=== PATIENT | female | born 1950 | race Caucasian/White ===

== ENCOUNTER 2020-10-15 09:40 | Inpatient (IN) | payer MEDICARE, SELFPAY ==
[2020-10-15] VITALS (29 sets, daily range): BP systolic 104–160; BP diastolic 57–108; PULSE 89–121; RESP 12–28; TEMP 36.1–37.6; O2SAT 89–100; BMI 24.3; BMI 23.6
--- NOTE | 2020-10-15 09:54 | RAD_ITS ---
STUDY: X-RAY CHEST REASON FOR EXAM: Female, 69 years old. sob TECHNIQUE: Single AP portable view of the chest. COMPARISON: 08/22/2012 FINDINGS: There is hyperinflation of the lungs consistent with chronic obstructive lung disease (COPD). Development of bibasilar airspace disease with consolidation and effusions. Otherwise diffuse patchy airspace disease throughout the lungs. Stable cardiomegaly with left chest wall pacing device. Normal mediastinum and sp. Normal visualized pulmonary arteries. Normal visualized aortic arch and descending thoracic aorta. Normal visualized thoracic spine. There is degenerative osteoarthritis of the bilateral shoulders. There is no demonstrated abnormality of the visualized soft tissue structures of the upper abdomen. RAD/Chest 1 View (Portable) IMPRESSION: Diffuse patchy airspace disease throughout the lungs with bibasilar consolidation and small effusions Electronically Signed: Noe Lopez DO at 11:02 EST Tel , Service support ,
--- NOTE | 2020-10-15 09:54 | EKG12_ITS ---
Test Reason : Blood Pressure : / mmHG Vent. Rate : 102 BPM Atrial Rate : 102 BPM P-R Int : 136 ms QRS Dur : 152 ms QT Int : 386 ms P-R-T Axes : 070 -25 102 degrees QTc Int : 503 ms Atrial-sensed ventricular-paced rhythm Biventricular pacemaker detected Abnormal ECG Confirmed by JUSTIN ALCARAZ, SHILPI ([id number]), design editor IHLL JERNIGAN ([id number]) on 10/21/2020 9:59:47 A M Referred By: ZO Confirmed By:ADOLFO ANDERSON MD
--- NOTE | 2020-10-15 10:12 | ED.RN ---
tachepnic. wheezing. pursed lip breathing. pt reports anxious. bilateral lower extremities edematous and cool to touch. brando toes purble. brando hands purple/red and cool to touch. dr evangelista at bedside. placed on nonrebreather. respiratory called for breathing tx and bipap.
--- NOTE | 2020-10-15 10:15 | ED.VIS.GEN ---
History of Present Illness Chief Complaint: Shortness of Breath Informant: Patient Onset: Days Maximum Severity: Mild Narrative: The patient presents with shortness of breath and leg edema and blue toes bilaterally that started 2 days ago with what she describes as a panic attack, she has history of a pacemaker, she has no history of CHF COPD IA PE or DVT she has no fever she has had a dry cough, no exposures to coronavirus The shortness of breath intensified on arrival her pulse ox was 85% on room air she is not known to require oxygen she was placed on oxygen her O2 sat improved to about 90% and on a nonrebreather which she holds in front of her face her O2 sat is 95% she speaks in phrases She cannot explain why her all 10 toes would be blue she has had no trauma she has no history of peripheral vascular disease or clotting disorder Past Medical History - Allergies and Home Meds Allergies/Adverse Reactions: Allergies Sulfa (Sulfonamide Antibiotics) Allergy (Verified 02/27/15 05:31) Rash amoxicillin Adverse Reaction (Verified 02/27/15 05:31) Other Past Medical History: - - Cardiac pacemaker Smoking Status: Current every day smoker Review of Systems General: Denies: Chills, Fever, Sweats Eyes: Denies: Visual changes - bilaterally, Diplopia ENT: Denies: Rhinorrhea, Sore throat Cardiovascular: Denies: Chest pain, Palpitations Respiratory: Reports: Dyspnea, Cough, Dyspnea on exertion, Paroxysmal nocturnal dyspnea Gastrointestinal: Denies: Abdominal pain, Nausea, Vomiting, Diarrhea, Melena, Hematochezia Genitourinary: Denies: Dysuria, Hematuria, Frequency Musculoskeletal: Denies: Back pain, Extremity Pain Skin: Denies: Rash, Wounds Neurological: Reports: Numbness, - - All 10 toes are blue. Denies: Headache, Weakness Physical Exam Vital Signs/Narrative: Vital Signs Temp Pulse Resp BP Pulse Ox 10/15/20 09:45 96.9 F L 121 H 27 H 146/108 H 90 10/15/20 09:41 96.9 F L 111 H 27 H 146/108 H 89 General: Well nourished, Well developed, Acute Distress Head: Normocephalic, Atraumatic Eyes: Perrl, EOMI ENT: Moist mucous membranes, No rhinorrhea Neck: Supple, Nontender Cardiovascular: Regular rate, Regular rhythm, Tachycardia Respiratory: Chest nontender, Diminished, Decreased Air Movement, Retractions, - - Has markedly diminished bilateral breath sounds she speaking in phrases a nonrebreather was applied she prefers to hold the nonrebreather in front of her face when she does so her pulse ox is 95% Abdomen: Soft, Nontender, Nondistended, Normal bowel sounds Back: Nontender, Normal Inspection Extremities: Nontender, No edema Skin: Normal color, No rash Neurological: Alert, Oriented x3, Cranial nerves II-XII grossly intact, Normal Strength, Normal Sensation Psychological: Normal affect, Normal Mood Diagnostic/Tx/Re-eval - Medical Decision Making The patient's EKG shows a paced rhythm nothing acute, given all the above she is obviously in respiratory distress she will receive ED evaluation management oxygen we will consider an attempt none invasive ventilation methods, aerosols, blood gas chest x-ray SHe is an extremely poor limited historian as she did not recall having the pacemaker and declines that she has any past medical history We did attempt to locate pulses in her feet using the ultrasound machine and none were apparent Her records obtained show the patient does have a history of CAD ejection fraction 25% COPD congestive heart failure she has no recollection of that history she has not been on Lasix or any cardiac meds that she can recall. There is a note from 2012 that describes some of this history. Her chest x-ray to my review shows signs of congestive heart failure possible right lower lobe infiltrate radiology has reviewed concern for airspace disease see that report, her CBC and chemistry are generally unremarkable see those reports, her D-dimer is pending, her BNP is about 5000 and her troponin is slightly elevated, D-dimer pending, the blood gas shows signs of respiratory failure She has agreed to be placed on the noninvasive ventilation mask her pulse ox is 100% she claims she is very anxious when the mask is put on her face she is given 1 mg of Versed she adamantly refuses endotracheal intubation under any circumstances even if it means her Given all the above we will start IV antibiotics small dose of Lasix Discussed with the hospitalist who will see her further management and admission to the ICU and a rapid Covid screen is negative, On the nonbreather noninvasive respiratory support she is resting comfortably she feels better, again she does not wish to be intubated she does not wish to have resuscitation she is interested medical management she agrees to DNR Comfort Care arrest with medical management no CPR no intubation Critical care time 25 to 40 minutes Admit ICU Final impression respiratory failure, congestive heart failure pneumonia peripheral cyanosis ED Disposition - Plan for ED Patient: Disposition: Acute Care Hospital [facility]
[2020-10-15 10:30] LABS: Absolute Lymphocyte Count 0.77 X10^3/uL (0.83-4.51); Absolute Neutrophil Count 9.5 X10^3/uL (2.0-7.7); Basophil# 0.02 X10^3/uL; Basophil% 0.2 % (0-1); Hematocrit 46.5 % (37-47); Hemoglobin 14.8 g/dL (12.0-15.0); Lymphocyte # 0.77 X10^3/ul (4.0); Lymphocyte % 7.2 % (19-41); Mean Corp Hgb Conc 31.8 g/dL (32-36); Mean Corpuscular Hgb 29.8 pg (27.0-32.0); Mean Corpuscular Volume 93.8 fL (81-99); Monocyte# 0.46 X10^3/uL; Monocyte% 4.3 % (0-10); NRBC Flagged by Analyzer 0 % (0-5); Neutrophil # 9.49 X10^3/uL (2.7-7.7); Neutrophil % 88.1 % (47-70); Platelet Count 313 K/mm3 (150-450); RBC Distribution Width CV 13.5 % (11.6-14.6); RBC Distribution Width SD 46.9 fl (35.1-43.9); Red Blood Count 4.96 M/mm3 (4.2-5.4); White Blood Count 10.8 K/mm3 (4.4-11.0)
[2020-10-15 10:35] LABS: Anion Gap 9 (5-15); BUN 18 mg/dL (7-18); BUN/Creat Ratio 25.1 RATIO (10-20); Chloride 99 mmol/L (98-107); Creatinine, Serum 0.72 mg/dL (0.55-1.02); EST Glomerular Filtration Rate 86 mL/min (>60); Est Glom Filt Rate - Afr Amer 104 mL/min (>60); Estimated Creatinine Clearance 41.99 ml/min; Glucose 171 mg/dL (74-106); Potassium 3.8 mmol/L (3.5-5.1); Sodium Level 134 mmol/L (136-145)
[2020-10-15] MEDS: Midazolam 2 MG/2 ML Syringe 1 MG IV (10:55)
[2020-10-15 11:20] LABS: D-Dimer Quantitative (DVT/PE) 0.96 FEU/ug/m (0.27-0.49)
[2020-10-15 11:50] LABS: Allen Test Positive; Base Excess -2 mmol/L (-2 to +2); Bicarbonate 25.5 mmol/L (22-26); Blood Gas Specimen Type ART; FI02 100; Mode NIV; O2 Delivery Device BiPAP; PO2 378 mmHG (75-100); SITE L Radial; SO2 100 % (95-99); Total Carbon Dioxide 27 mmol/L; pH 7.25 (7.35-7.45)
--- NOTE | 2020-10-15 11:52 | NURSING ---
DR PADRON FOR ER DOC
[2020-10-15] MEDS: Furosemide 20 MG/2 ML VIAL IV (11:56)
[2020-10-15] MEDS: Enoxaparin 80 MG/0.8 ML Syringe 70 MG SC (11:56)
--- NOTE | 2020-10-15 11:56 | HP.PCM_ITS ---
Problem List (1) Acute exacerbation of CHF (congestive heart failure) Status: Acute (2) Hypertension Status: Chronic (3) Acute respiratory failure with hypoxia and hypercapnia Status: Acute History of Present Illness Date of Admission: 10/15/20 Chief Complaint: Shortness of breath ongoing for 2 weeks The patient is a 69 year old F with history of CHF status post AICD, details not known came to ED with progressive worsening of shortness of breath for 2 weeks. At baseline, patient is not on oxygen, uses bronchodilator or NIPPV at home. Her shortness of breath got worse this morning and that brought to ER. She was put on nonrebreather and then BiPAP in ER. She has mild cough in ED but states it happened after she was put on BiPAP. She denies fever chills, chest pain/pressure/congestion. She has chronic history of sinus drainage and postnasal drip. She also has blue toes which she noticed today. It is more on the fourth and fifth toes bilaterally. She states it has happened in the past and the last one was about a year ago when she gets very anxious and get panic attack. She is also a chronic smoker and currently smokes half pack per day. Started in her 20s. In ED, triage vitals afebrile, blood pressure 146/108, respiratory 27, pulse ox 89% on 4 L of oxygen in ED. In ED, chest x-ray shows patchy consolidation throughout the lungs, predomina ntly on the right lung base with bibasilar consolidation/small effusions. Twelve-lead EKG atrial sensed ventricular paced rhythm at 102 bpm. QTC 503 ms. Previous EKG in about 2011 was similar. 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 Past Medical History Past Medical History (Chronic Problems): Chronic Problems Hypertension (Chronic) Allergies Sulfa (Sulfonamide Antibiotics) Allergy (Verified 02/27/15 05:31) Rash amoxicillin Adverse Reaction (Verified 02/27/15 05:31) Other Home Medications: Ambulatory Orders Medication Instructions Recorded Carvedilol [Coreg] 12.5 mg PO BID 02/27/15 Smoking Status: Current every day smoker - Currently smokes half pack per day. Started smoking a pack per day in her 20s. Alcohol: None Drugs: None - *Family History Paternal History Items: Heart Disease Review of Systems Constitutional: Denies: Chills, Fever, Weight Change HEENT: Denies: Head Aches, Sinus Congestion, Sinus Drainage Cardiovascular: Denies: Chest Pain, Chest Pressure, Chest Tightness, Palpitations Respiratory: Reports: Cough, Shortness of Breath, Shortness of breath at rest, Shortness of breath upon exertion. Denies: Sputum production, Wheezing Gastrointestinal: Denies: Abdominal Pain, Constipation, Diarrhea, Hematemesis, Hematochezia, Nausea, Melena, Vomiting Genitourinary: Denies: Dysuria, Frequency, Hematuria, Hesitancy Musculoskeletal: Denies: Joint Pain, Joint Tenderness Skin: Denies: Rash, Wounds Neurological: Denies: Numbness, Tingling, Focal weakness Psychiatric: Reports: Anxiety, Depression. Denies: Homicidal Ideations, Suicidal Ideations Hematologic/ Lymphatic: Denies: Easy Bruising, Easy Bleeding VTE Information - Inpt Only VTE Present on Admission: No VTE Mechan Device Prophylaxis: None VTE Pharm Prophylaxis ordered?: Yes Objective: Physical exam General: Alert, Oriented x3, Cooperative, in respiratory distress HEENT: Atraumatic, PERRLA, EOMI, Normocephalic Oral: On BiPAP. Neck: Supple, No JVD, Negative Carotid Bruits Lungs: Air entry diminished in bilateral lung bases. Bilateral coarse crepitation present. Cardiovascular: Left subclavicular AICD present. Regular rate, Regular Rhythm, Normal S1, Normal S2, systolic murmur over left second and left lower sternal border. Abdomen: Bowel Sounds Present, Soft, Non Tender, Non-Distended : No renal angle tenderness. No suprapubic tenderness. Extremities: Mild bilateral ankle edema, toes of both feet are bluish. Pale, cold. Bilateral SANDER OPERATOR, popliteal and femoral palpable although PTR febrile. Skin: No rashes, No breakdown Musculoskeletal: No Tenderness to Palpation of Joints or Extremities Neurological: Cranial nerves II-XII grossly intact, Deep Tendon Reflexes 2+/4 and Symmetrical, Neuro grossly intact Psych/Mental Status: Anxious. Appropriate.. - Physical Exam Vitals/I&O's: Vital Signs Temp Pulse Resp BP Pulse Ox 97.6 F L 110 H 26 H 128/92 H 100 10/15/20 11:00 10/15/20 11:00 10/15/20 11:00 10/15/20 11:10/15/20 11:00 Oxygen Flow Rate (L/min) 15 Oxygen Delivery Method Bi-pap Weight: 132 lb 11.492 oz Body Mass Index (BMI) 24.3 Microbiology Past 72 Hours 10/15/20 10:00 Mucosa - Nose SARS-CoV-2 Antigen (Rapid) - Final Laboratory Results 10/15/20 10:00: WBC 10.8, RBC 4.96, Hgb 14.8, Hct 46.5, MCV 93.8, MCH 29.8, MCHC 31.8 L, RDW Std Deviation 46.9 H, RDW Coeff of Toby 13.5, Plt Count 313, MPV 11.0, Immature Gran % (Auto) 0.200, Neut % (Auto) 88.1 H, Lymph % (Auto) 7.2 L, [place] % (Auto) 4.3, Eos % (Auto) 0.0, Baso % (Auto) 0.2, Absolute Neuts (auto) 9.5 H, Absolute Lymphs (auto) 0.77 L, Nucleated RBC % 0 10/15/20 10:00: Sodium 134 L, Potassium 3.8, Chloride 99, Carbon Dioxide 26.0, Anion Gap 9, BUN 18, Creatinine 0.72, Estim Creat Clear Calc 41.99, Est GFR (MDRD) Af Amer 104, Est GFR (MDRD) Non-Af 86, BUN/Creatinine Ratio 25.1 H, Glucose 171 H, Calcium 9.0, Troponin I 0.294 H 10/15/20 10:00: B-Natriuretic Peptide 4573.0 H 10/15/20 10:00: D-Dimer Quant (PE/DVT) 0.96 H* 10/15/20 11:42: Specimen Type ART, Sample Site L Radial, pH 7.25 L, Bicarbonate Actual 25.5, Total CO2 27, Base Excess -2, O2 Saturation 100 H, O2 % 100, ABG pCO2 58.0 H, ABG pO2 378 H*, Carroll Test Positive, O2 Delivery Device BiPAP, Vent Mode NIV Current Medications Levofloxacin (Levaquin Iv) 750 mg in 150 mls @ 100 mls/hr IV X1 ONE Stop: 10/15/20 12:40 Assessment/Plan All Active Problems Acute exacerbation of CHF (congestive heart failure) (Acute) Acute respiratory failure with hypoxia and hypercapnia (Acute) The patient is a 69 year old F with history of CHF status post AICD, details not known came to ED with progressive worsening of shortness of breath for 2 weeks. Patient put on BiPAP in ED In ED, chest x-ray shows patchy consolidation throughout the lungs, predominantly on the right lung base with bibasilar consolidation/small effusions. Twelve-lead EKG atrial sensed ventricular paced rhythm at 102 bpm. QTC 503 ms. Previous EKG in about 2011 was similar. 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 1. Acute hypoxic and hypercarbic respiratory failure on BiPAP most probably secondary to CHF extubation: Patient is being admitted in ICU. ABG 7.25/58/378/26 on 100% FiO2 BiPAP. Discussed with the ase master mechanic. Lasix 40 mg IV twice daily with CHF core measures strict input and output, daily weight monitoring and 2 g sodium diet. 2D echo is ordered. We will try to get record from lace machine operator, [facility]. 2. Suspicion of peripheral arterial disease/critical limb ischemia: Dip Unit Operator consulted. Arterial Doppler and vascular check ordered. On Lovenox 1 mg/kg body weight every 12 hourly. Aspirin 81 mg daily. Further as per lace machine operator recommendation. 3. Acute on chronic CHF, exact type and etiology unclear but probably nonischemic: Patient on Coreg 12.5 twice daily at home but will hold it as she is hypervolemic now. Resume later when fluid status is euvolemic. First troponin mildly elevated 0.294. Cycle troponin yes. 4. Suspicion of COVID-19 pneumonia: Rapid antigen is negative. COVID-19 PCR, respiratory panel and sputum culture ordered. Lactic acid and inflammatory markers is ordered. ID consult for further opinion. Hold on remdesivir until COVID-19 PCR comes positive. VT prophylaxis on Lovenox 60 mg every 12 hourly, full therapeutic dose. Living will/advanced directive/end of life care: Patient does not have living will or advanced directive. After discussion of benefits/risks procedures involved with full code, DNR CC arrest and DNR CC, the patient opted for DNR-CC Arrest with no intubation Patient does not want artificial life support including intubation, tube feed, ventilator and/chest compression, vasopressor and DC shock if needed Total time spent in [id number] encounter in discussion of advanced directive 16 minutes. Clinical Impression(s) from Imaging Studies Chest X-Ray 10/15/20 09:54 IMPRESSION: Diffuse patchy airspace disease throughout the lungs with bibasilar consolidation and small effusions Inpatient E&M: 57810 Init Hosp L3 Procedures: 05132 Advncd Care Plan 30 Min
[2020-10-15] MEDS: levoFLOXacin IV 750 MG/150 ML BAG 100 MG IV (12:00)
--- NOTE | 2020-10-15 12:01 | CPS ---
Critical values verified times two. Reported to . Verified by read back.
--- NOTE | 2020-10-15 12:20 | NURSING ---
ICU [facility] FALURE, CHF, DNR ARREST
--- NOTE | 2020-10-15 12:21 | NURSING ---
ICU 3
--- NOTE | 2020-10-15 12:29 | NURSING ---
DR PADRON IN ER
--- NOTE | 2020-10-15 13:05 | CPS ---
Transported pt to ICU on 6lpm via NC w/RN. pt doing well, left on 4lplm after arriving in ICU. Sat=97%. Left AVAPS on standby.
--- NOTE | 2020-10-15 14:03 | CON.PCM_ITS ---
Problem List (1) Acute exacerbation of CHF (congestive heart failure) Status: Ruled-out (2) Hypertension Status: Chronic (3) Acute respiratory failure with hypoxia and hypercapnia Status: Acute Reason for Consult Date of Consultation: 10/15/20 History of Present Illness: The patient is a 69 year old female with past medical history of AICD, hypertension presented inpatient due to worsening shortness of breath. The patient reports this been going on for the past few days. She noticed that her lower extremity has been swelling as well. Due to the worsening shortness of breath, the patient presented inpatient for further evaluation. Present chest x-ray showed diffuse patchy airspace disease throughout the lungs with bibasilar consolidations and small effusions. Patient was in sinus tachycardia with no evidence of acute ischemia. He was initially placed on BiPAP therapy and it seems to help with her breathing. Patient has not had any recent trauma to her legs. The ER, the patient was found to have purplish looking lower extremities. This is concerning for ischemia. The patient reports asked to keep her house cool. She often keeps in the 60 degree Fahrenheit. The patient denies any chest pain, chest pressure, chest tightness, chest heaviness, burning sensation in the chest, recent trauma, fever, exposure to COVID-19. Past Medical History Allergies/Adverse Reactions: Allergies Sulfa (Sulfonamide Antibiotics) Allergy (Verified 02/27/15 05:31) Rash amoxicillin Adverse Reaction (Verified 02/27/15 05:31) Other Home Medications: Ambulatory Orders Medication Instructions Recorded Carvedilol [Coreg] 12.5 mg PO BID 02/27/15 Past Medical History (Chronic Problems): Chronic Problems Hypertension (Chronic) - *Family History Paternal History Items: Heart Disease Smoking Status: Current every day smoker - Currently smokes half pack per day. Started smoking a pack per day in her 20s. Alcohol: None Drugs: None Subjectve: Review of him the 14 point review of system was done. Pertinent positive are mentioned in HPI. Physical Exam GENERAL: This is a well-nourished who is appropriate and articulate at the time of evaluation. VITAL SIGNS: please see collected data HEENT: Exam is benign. Normocephalic and atraumatic. Oral mucosa is pink and moist. NECK: Jugular venous pulsations are normal. Carotid upstrokes are palpable bilaterally. There is no audible bruit. LUNGS: Decreased breath sound to Auscultation Bilaterally, No rales, rhonchi or wheezes CARDIAC: Tachycardic . S1 and S2 with NILESH at apex, no rub, or gallop appreciated. The point of maximal impulse is normal. ABDOMEN: Obese, soft with active bowel sounds. No organomegaly. No audible bruit. Nontender To Palpation EXTREMITIES: Femoral pulses were palpable bilaterally. There is DP and PT pulse bilaterally. The patient may have Raynaud's phenomenon. OMM: Patient was examined in supine position; there was no acute tissue changes other stated in Lymphs: No lymphadenopathy Neuro: CN 2-12 are grossly intact, no focal neurological deficit. Psych: anxiety Objective: Vital Signs Temp Pulse Resp BP Pulse Ox 97.1 F L 101 H 24 H 105/64 97 10/15/20 13:50 10/15/20 13:50 10/15/20 13:50 10/15/20 13:50 10/15/20 13:50 Oxygen Flow Rate (L/min) 6 Oxygen Delivery Method Nasal Cannula Weight: 132 lb 11.492 oz Body Mass Index (BMI) 24.3 Intake and Output for Last 24 Hours 10/13/20 10/14/20 10/15/20 23:59 23:59 23:59 Intake Total 150 / 150 Balance 150 / 150 10/15/20 10:00: WBC 10.8, RBC 4.96, Hgb 14.8, Hct 46.5, MCV 93.8, MCH 29.8, MCHC 31.8 L, Plt Count 313, MPV 11.0, Immature Gran % (Auto) 0.200, Neut % (Auto) 88.1 H, Lymph % (Auto) 7.2 L, [place] % (Auto) 4.3, Eos % (Auto) 0.0, Baso % (Auto) 0.2, Absolute Neuts (auto) 9.5 H, Nucleated RBC % 0 10/15/20 10:00: Sodium 134 L, Potassium 3.8, Chloride 99, Carbon Dioxide 26.0, Anion Gap 9, BUN 18, Creatinine 0.72, Est GFR (MDRD) Af Amer 104, Est GFR (MDRD) Non-Af 86, BUN/Creatinine Ratio 25.1 H, Glucose 171 H, Calcium 9.0, Troponin I 0.294 H 10/15/20 10:00: B-Natriuretic Peptide 4573.0 H 10/15/20 10:00: D-Dimer Quant (PE/DVT) 0.96 H* 10/15/20 11:42: pH 7.25 L, Bicarbonate Actual 25.5, Base Excess -2, O2 Saturation 100 H, ABG pCO2 58.0 H, ABG pO2 378 H*, Carroll Test Positive Rhythm: EKG: ECHO: Stress Test: Cardiac Cath: PCI: CT Surgery: Holter monitor: EPS: PPM: CXR: Chest CT Scan: Assessment/Plan Impression and recommendation + NSTEMI type II ECG showed sinus tachycardia with no evidence of acute ischemia. There is pulmonary pattern concerning for pulmonary disease. Patient has an elevated troponin level along with the tachycardia and initially hypotensive and hypoxic. The D-dimer is elevated. We recommend rule out PE. Will order for CT angio of the chest to rule out PE. Additionally, the patient chest x-ray is concerning for COVID-19 pneumonia. We will continue to monitor closely We will order an echo to evaluate for evidence structure. We recommend continue with the Lovenox full dose. We will going to implement cardiac medical therapy as tolerated. We will start the patient on Lasix 40 mg twice daily. We recommend accurate I/O's. -We will also obtain record for more building equipment inspector when possible. + Acute exacerbation of heart failure with reduced LVEF -See management above + Lower extremity discoloration -The patient reports she does not usually noticed that her feet are purplish. However, she admits that she does only watch it. The patient reports since the admission, her feet some much better in coloration. We suspect that this may be due to renal phenomenon. The patient distal pulses are normal. Hence this is highly unlikely that she has an acute limb ischemia. There is no pain, pallor, petechiae, neurovascular bundle being compromised. Her sensations are intact. We will continue to monitor closely. + Acute respiratory failure -Management above. Primary team is also following. Patient was started on antibiotics. + History of AICD -Patient reports the last time Auth0 check her AICD which was about 6 months ago. She was told her it was normal. + Hypertension -Monitor for now
--- NOTE | 2020-10-15 14:28 | CT_ITS ---
STUDY: CTA CHEST REASON FOR EXAM: Female, 69 years old. RESPIRATORY FAILURE, CHF RADIATION DOSAGE (If Supplied By Facility): CTDIvol = ( 8.78 ) mGy, DLP = ( 345.69 ) mGycm TECHNIQUE: The examination was performed with the intravenous administration of IV 100mL Isovue-300. Post-processing of the angiographic images was performed, with multiplanar reformation and 3D reconstruction. Individualized dose optimization techniques were used for this CT. COMPARISON: None. FINDINGS: Pulmonary artery and its branches demonstrate no evidence for filling defects to suggest acute pulmonary embolism. Cardiac size appears enlarged. No pericardial effusion. Coronary vascular calcifications. Calcifications of the thoracic aorta. No evidence for dissection or aneurysm. Small hiatal hernia. Dense consolidation in the right lower lobe seen. Bilateral interlobular septal thickening and groundglass densities likely pulmonary edema. Patchy infiltrates in the left lower lobe also seen. Upper abdominal structures demonstrate no acute abnormalities. The trachea and the mainstem bronchi are patent. Enlargement of the thyroid gland. Trace bilateral pleural effusions. Osseous structures demonstrate no acute abnormalities. IMPRESSION: Cardiomegaly with bilateral mild pulmonary edema. Dense consolidation in the right lower lobe and patchy infiltrates in the left lower lobe. No evidence for acute pulmonary embolism. No evidence for aortic dissection. Coronary vascular calcifications Electronically Signed: Eliezer King, at 16:02 EST Tel , Service support , CT/CTA Chest W/WO Contrast
--- NOTE | 2020-10-15 14:31 | ECHOD_ITS ---
Reason For Study: CHF Procedure This was a 2D Doppler, Color Flow transthoracic echocardiogram. Exam performed portable in ICU/CCU. Left Ventricle -The LV is dilated. The LV EF is 15%. -There is no gross LV thrombus. -There is severe generalized wall motion hypokinesis. -There is severe diastolic dysfunction. Right Ventricle Normal right ventricle. Atria The left atrium is moderately enlarged. Normal right atrium. Mitral Valve -There is at least moderate to severe mitral regurgitation. The jet appears to be directed centrally. Tricuspid Valve mild TR. Aortic Valve Normal aortic valve. Pulmonic Valve The pulmonic valve is not well visualized. Great Vessels The inferior vena cava is dilated. Pericardium/Pleural There is physiologic pericardial effusion. There is no evidence of cardiac echo tamponade. MMode/2D Measurements & Calculations LVIDd: 5.6 cm IVSd: 1.0 cm Ao root diam: 3.5 cm LVIDs: 5.0 cm LVPWd: 1.1 cm RVDd: 3.1 cm FS: 10.8 % LAV(MOD-bp): 70.4 ml LVAd ap4: 54.3 cm2 SV(MOD-sp4): 53.1 ml LAV(MOD-bp) Indexed: 43.9 ml/m2 EDV(MOD-sp4): 241.9 ml LAV(MOD-sp2): 97.1 ml EDV(sp4-el): 253.7 ml LAV(MOD-sp4): 49.8 ml LVAs ap4: 47.5 cm2 ESV(MOD-sp4): 188.7 ml ESV(sp4-el): 195.4 ml EF(MOD-sp4): 22.0 % EF(sp4-el): 23.0 % SV(sp4-el): 58.3 ml LA A4 area: 18.4 cm2 LA dimension(2D): 4.3 cm RA A4 area: 11.1 cm2 Doppler Measurements & Calculations MV E max alberto: 84.8 cm/sec Lat Peak E' Alberto: 12.7 cm/sec Med Peak E' Alberto: 12.2 cm/sec MV A max alberto: 114.3 cm/sec E/E' lat: 6.7 E/E' med: 6.9 MV E/A: 0.74 Ao V2 max: 153.9 cm/sec LV V1 max: 120.6 cm/sec PA V2 max: 89.1 cm/sec Ao max P.5 mmHg LV V1 max P.8 mmHg TR max alberto: 311.1 cm/sec TR max P.8 mmHg Interpretation Summary +Transthoracic Echo Summary: -The LV is dilated. The LV EF is 15%. -There is no gross LV thrombus. -There is severe generalized wall motion hypokinesis. -There is severe diastolic dysfunction. -There is at least moderate to severe mitral regurgitation. The jet appears to be directed centrally -There is moderate Pulmonary Hypertension with estimated RVSP of 55mmHg. -The IVC is dilated and plethoric. -There is no gross PFO or ASD. There is moderate sized left sided pleural effusion. There is pacing lead in the RV There is physiologic pericardial effusion. There is no evidence of cardiac echo tamponade. Frantz Shah, FSCAI, FACC, FASE, FASNC Ordering Physician: Frantz Shah Referring Physician: No PCP Performed By: Kayla Tuttle, LETY
[2020-10-15 15:24] LABS: Magnesium 1.9 mg/dL (1.6-2.6)
--- NOTE | 2020-10-15 15:29 | NURSING ---
Pt c/o severe anxiety with anything that involves wearing a mask and adamantly refuses to wear one, therefore pt not made to wear a mask to CT. Pt without any cough at this time, remains on oxygen at 3L/min with oxygen sats in upper 90s.
[2020-10-15 15:36] LABS: CRP < 2.90 mg/L (0.0-3.0); LDH 377 U/L (84-246); Lactic Acid 1.7 mmol/L (0.4-1.9)
[2020-10-15 16:06] LABS: Fibrinogen 295 mg/dl (203-444)
[2020-10-16] VITALS (20 sets, daily range): BP systolic 94–132; BP diastolic 47–91; PULSE 86–99; RESP 13–23; TEMP 36.8–37.6; O2SAT 91–99
[2020-10-16 02:07] LABS: Procalcitonin < 0.04 ng/mL (0.00-0.09)
[2020-10-16 05:06] LABS: Absolute Neutrophil Count 7.7 X10^3/uL (2.0-7.7); Basophil# 0.02 X10^3/uL; Basophil% 0.2 % (0-1); Eosinophil# 0.02 X10^3/uL; Eosinophils% 0.2 % (0-5); Hematocrit 37.3 % (37-47); Hemoglobin 12.4 g/dL (12.0-15.0); Lymphocyte % 12.1 % (19-41); Mean Corp Hgb Conc 33.2 g/dL (32-36); Mean Corpuscular Hgb 30.2 pg (27.0-32.0); Mean Corpuscular Volume 90.8 fL (81-99); Mean Platelet Vol. 10.8 fl (6.2-12.0); Monocyte# 0.93 X10^3/uL; Monocyte% 9.4 % (0-10); NRBC Flagged by Analyzer 0 % (0-5); Neutrophil # 7.73 X10^3/uL (2.7-7.7); Neutrophil % 77.8 % (47-70); Platelet Count 270 K/mm3 (150-450); RBC Distribution Width CV 13.3 % (11.6-14.6); RBC Distribution Width SD 44.6 fl (35.1-43.9); Red Blood Count 4.11 M/mm3 (4.2-5.4); White Blood Count 9.9 K/mm3 (4.4-11.0)
--- NOTE | 2020-10-16 05:38 | PCM.CON.CC ---
Reason for Consult Date of Consultation: 10/16/20 Reason for Consultation: Acute hypoxemic respiratory failure History of Present Illness: The patient is a 69-year-old female, with a history as outlined below, who presented to the emergency department on October 15 with complaints of shortness of breath and lower extremity edema. The patient does reportedly have a cardiac history and follows with a kineseologist in [place]. She also reported the presence of frequent panic attacks over the days leading up to her hospitalization. She is a current smoker of 0.5 packs of cigarettes per day, but does not utilize any inhalers or supplemental oxygen at her baseline. On presentation to the emergency department, the patient was noted to be tachycardic and tachypneic. She was hypoxemic requiring supplemental oxygen to maintain appropriate saturations. Laboratory evaluation revealed no evidence of a leukocytosis. D-dimer was only mildly elevated to 0.96. Arterial blood gas revealed a pH of 7.25 with a PCO2 of 58 and PO2 of 378. Chemistry profile was unremarkable. Lactate was within normal limits. Troponin was elevated to 0.294. BNP [place] elevated [place] 4573. Procalcitonin level was normal. Coronavirus rapid antigen and PCR testing was negative. CTA chest was eventually obtained which revealed cardiomegaly, pulmonary edema and a dense consolidation in the right lower lobe. No pulmonary embolism was identified. Due to the patient's tenuous respiratory status, she was placed on BiPAP therapy with subsequent improvement. The patient was then transferred to the medical intensive care unit for further management. Past Medical History Past Medical History (Chronic Problems): Chronic Problems Hypertension (Chronic) Allergies Sulfa (Sulfonamide Antibiotics) Allergy (Verified 02/27/15 05:31) Rash amoxicillin Adverse Reaction (Verified 02/27/15 05:31) Other Home Medications: Ambulatory Orders Medication Instructions Recorded Carvedilol [Coreg] 12.5 mg PO BID 02/27/15 Smoking Status: Current every day smoker Alcohol: None Drugs: None - *Family History Paternal History Items: Heart Disease Review of Systems Constitutional: Denies: Chills, Fever Eyes: Denies: Blurred vision, Double vision HEENT: Denies: Head Aches, Sinus Congestion, Sinus Drainage Cardiovascular: Reports: Edema. Denies: Chest Pain, Palpitations Respiratory: Reports: Cough, Shortness of Breath Gastrointestinal: Denies: Abdominal Pain, Nausea, Vomiting Genitourinary: Denies: Dysuria Musculoskeletal: Denies: Joint Pain, Joint Tenderness Skin: Denies: Rash, Wounds Neurological: Denies: Numbness, Tingling, Focal weakness Psychiatric: Reports: Anxiety Hematologic/ Lymphatic: Denies: Hx of blood clot Patient Problems: Active and Suspected Problems Acute respiratory failure with hypoxia and hypercapnia (Acute) Objective: The patient's most recent lab work, culture data and imaging studies have all been personally reviewed. - Physical Exam Vitals/I&O's: Vital Signs Temp Pulse Resp BP Pulse Ox 98.9 F 97 20 H 112/60 95 10/16/20 04:00 10/16/20 04:00 10/16/20 04:00 10/16/20 04:00 10/16/20 04:00 Oxygen Flow Rate (L/min) 2 Oxygen Delivery Method Nasal Cannula Weight: 126 lb 12.253 oz Body Mass Index (BMI) 23.6 Intake and Output for Last 24 Hours 10/14/20 10/15/20 10/16/20 23:59 23:59 23:59 Intake Total 390 / 390 240 / 240 Output Total 2500 / 2500 450 / 450 Balance -2110 / -2110 -210 / -210 General: Alert, Oriented x3, Cooperative, No apparent distress HEENT: Atraumatic, PERRLA, Normocephalic Oral: Moist Mucosa, No Gingival or Mucosal Lesions/ Ulcerations Neck: Supple, No Nodes, Trachea Midline Lungs: No rhonchi, No wheeze, No rales, Diminished Cardiovascular: Regular rate, Regular Rhythm Abdomen: Bowel Sounds Present, Soft, Non Tender Extremities: No clubbing, No cyanosis, Edema Skin: No breakdown Musculoskeletal: No Muscle Wasting Lymphatic: No Cervical, Supraclavicular, or Inguinal Adenopathy Neurological: Cranial nerves II-XII grossly intact, Neuro grossly intact Psych/Mental Status: Anxious Labs (Last 48 Hours) 10/15/20 10/15/20 10/15/20 10:00 10:00 10:00 WBC 10.8 RBC 4.96 Hgb 14.8 Hct 46.5 MCV 93.8 MCH 29.8 MCHC 31.8 L RDW Std Deviation 46.9 H RDW Coeff of Toby 13.5 Plt Count 313 MPV 11.0 Immature Gran % (Auto) 0.200 Neut % (Auto) 88.1 H Lymph % (Auto) 7.2 L [place] % (Auto) 4.3 Eos % (Auto) 0.0 Baso % (Auto) 0.2 Absolute Neuts (auto) 9.5 H Absolute Lymphs (auto) 0.77 L Nucleated RBC % 0 Fibrinogen D-Dimer Quant (PE/DVT) Specimen Type Sample Site pH Bicarbonate Actual Total CO2 Base Excess O2 Saturation O2 % ABG pCO2 ABG pO2 Carroll Test O2 Delivery Device Vent Mode Sodium 134 L Potassium 3.8 Chloride 99 Carbon Dioxide 26.0 Anion Gap 9 BUN 18 Creatinine 0.72 Estim Creat Clear Calc 41.99 Est GFR (MDRD) Af Amer 104 Est GFR (MDRD) Non-Af 86 BUN/Creatinine Ratio 25.1 H Glucose 171 H Lactic Acid Calcium 9.0 Magnesium Total Bilirubin Direct Bilirubin AST ALT Alkaline Phosphatase Lactate Dehydrogenase Troponin I 0.294 H C-React Prot Ext Range B-Natriuretic Peptide 4573.0 H Total Protein Albumin Globulin Albumin/Globulin Ratio Triglycerides Cholesterol LDL Cholesterol VLDL Cholesterol HDL Cholesterol Procalcitonin TSH COVID-19 ([facility]) 10/15/20 10/15/20 10/15/20 10:00 10:00 11:42 WBC RBC Hgb Hct MCV MCH MCHC RDW Std Deviation RDW Coeff of Toby Plt Count MPV Immature Gran % (Auto) Neut % (Auto) Lymph % (Auto) [place] % (Auto) Eos % (Auto) Baso % (Auto) Absolute Neuts (auto) Absolute Lymphs (auto) Nucleated RBC % Fibrinogen D-Dimer Quant (PE/DVT) 0.96 H* Specimen Type ART Sample Site L Radial pH 7.25 L Bicarbonate Actual 25.5 Total CO2 27 Base Excess -2 O2 Saturation 100 H O2 % 100 ABG pCO2 58.0 H ABG pO2 378 H* Carroll Test Positive O2 Delivery Device BiPAP Vent Mode NIV Sodium Potassium Chloride Carbon Dioxide Anion Gap BUN Creatinine Estim Creat Clear Calc Est GFR (MDRD) Af Amer Est GFR (MDRD) Non-Af BUN/Creatinine Ratio Glucose Lactic Acid Calcium Magnesium Total Bilirubin Direct Bilirubin AST ALT Alkaline Phosphatase Lactate Dehydrogenase Troponin I C-React Prot Ext Range B-Natriuretic Peptide Total Protein Albumin Globulin Albumin/Globulin Ratio Triglycerides Cholesterol LDL Cholesterol VLDL Cholesterol HDL Cholesterol Procalcitonin < 0.04 TSH COVID-19 ([facility]) 10/15/20 10/15/20 10/15/20 13:37 14:50 14:50 WBC RBC Hgb Hct MCV MCH MCHC RDW Std Deviation RDW Coeff of Toby Plt Count MPV Immature Gran % (Auto) Neut % (Auto) Lymph % (Auto) [place] % (Auto) Eos % (Auto) Baso % (Auto) Absolute Neuts (auto) Absolute Lymphs (auto) Nucleated RBC % Fibrinogen Cancelled D-Dimer Quant (PE/DVT) Specimen Type Sample Site pH Bicarbonate Actual Total CO2 Base Excess O2 Saturation O2 % ABG pCO2 ABG pO2 Carroll Test O2 Delivery Device Vent Mode Sodium Potassium Chloride Carbon Dioxide Anion Gap BUN Creatinine Estim Creat Clear Calc Est GFR (MDRD) Af Amer Est GFR (MDRD) Non-Af BUN/Creatinine Ratio Glucose Lactic Acid Calcium Magnesium Total Bilirubin Direct Bilirubin AST ALT Alkaline Phosphatase Lactate Dehydrogenase 377 H Troponin I C-React Prot Ext Range < 2.90 B-Natriuretic Peptide Total Protein Albumin Globulin Albumin/Globulin Ratio Triglycerides Cholesterol LDL Cholesterol VLDL Cholesterol HDL Cholesterol Procalcitonin TSH COVID-19 ([facility]) Negative 10/15/20 10/15/20 10/15/20 14:50 14:50 14:50 WBC RBC Hgb Hct MCV MCH MCHC RDW Std Deviation RDW Coeff of Toby Plt Count MPV Immature Gran % (Auto) Neut % (Auto) Lymph % (Auto) [place] % (Auto) Eos % (Auto) Baso % (Auto) Absolute Neuts (auto) Absolute Lymphs (auto) Nucleated RBC % Fibrinogen D-Dimer Quant (PE/DVT) Specimen Type Sample Site pH Bicarbonate Actual Total CO2 Base Excess O2 Saturation O2 % ABG pCO2 ABG pO2 Carroll Test O2 Delivery Device Vent Mode Sodium Potassium Chloride Carbon Dioxide Anion Gap BUN Creatinine Estim Creat Clear Calc Est GFR (MDRD) Af Amer Est GFR (MDRD) Non-Af BUN/Creatinine Ratio Glucose Lactic Acid 1.7 Calcium Magnesium 1.9 Total Bilirubin Direct Bilirubin AST ALT Alkaline Phosphatase Lactate Dehydrogenase Troponin I 0.593 H C-React Prot Ext Range B-Natriuretic Peptide Total Protein Albumin Globulin Albumin/Globulin Ratio Triglycerides Cholesterol LDL Cholesterol VLDL Cholesterol HDL Cholesterol Procalcitonin TSH COVID-19 ([facility]) 10/15/20 10/15/20 10/16/20 15:40 17:40 04:45 WBC RBC Hgb Hct MCV MCH MCHC RDW Std Deviation RDW Coeff of Toby Plt Count MPV Immature Gran % (Auto) Neut % (Auto) Lymph % (Auto) [place] % (Auto) Eos % (Auto) Baso % (Auto) Absolute Neuts (auto) Absolute Lymphs (auto) Nucleated RBC % Fibrinogen 295 D-Dimer Quant (PE/DVT) Specimen Type Sample Site pH Bicarbonate Actual Total CO2 Base Excess O2 Saturation O2 % ABG pCO2 ABG pO2 Carroll Test O2 Delivery Device Vent Mode Sodium 138 Potassium 3.6 Chloride 104 Carbon Dioxide 30.0 Anion Gap 4 L BUN 15 Creatinine 0.71 Estim Creat Clear Calc 41.99 Est GFR (MDRD) Af Amer 105 Est GFR (MDRD) Non-Af 87 BUN/Creatinine Ratio 21.2 H Glucose 116 H Lactic Acid Calcium 8.2 L Magnesium Total Bilirubin 0.60 Direct Bilirubin 0.19 AST 46 H ALT 69 H Alkaline Phosphatase 122 H Lactate Dehydrogenase Troponin I 0.902 H* 0.845 H* C-React Prot Ext Range B-Natriuretic Peptide Total Protein 5.6 L Albumin 2.9 L Globulin 2.7 Albumin/Globulin Ratio 1.1 Triglycerides 76 Cholesterol 138 LDL Cholesterol 73 VLDL Cholesterol 15 HDL Cholesterol 50 Procalcitonin TSH 0.45 COVID-19 ([facility]) 10/16/20 04:45 WBC 9.9 RBC 4.11 L Hgb 12.4 Hct 37.3 MCV 90.8 MCH 30.2 MCHC 33.2 RDW Std Deviation 44.6 H RDW Coeff of Toby 13.3 Plt Count 270 MPV 10.8 Immature Gran % (Auto) 0.300 Neut % (Auto) 77.8 H Lymph % (Auto) 12.1 L [place] % (Auto) 9.4 Eos % (Auto) 0.2 Baso % (Auto) 0.2 Absolute Neuts (auto) 7.7 Absolute Lymphs (auto) 1.20 Nucleated RBC % 0 Fibrinogen D-Dimer Quant (PE/DVT) Specimen Type Sample Site pH Bicarbonate Actual Total CO2 Base Excess O2 Saturation O2 % ABG pCO2 ABG pO2 Carroll Test O2 Delivery Device Vent Mode Sodium Potassium Chloride Carbon Dioxide Anion Gap BUN Creatinine Estim Creat Clear Calc Est GFR (MDRD) Af Amer Est GFR (MDRD) Non-Af BUN/Creatinine Ratio Glucose Lactic Acid Calcium Magnesium Total Bilirubin Direct Bilirubin AST ALT Alkaline Phosphatase Lactate Dehydrogenase Troponin I C-React Prot Ext Range B-Natriuretic Peptide Total Protein Albumin Globulin Albumin/Globulin Ratio Triglycerides Cholesterol LDL Cholesterol VLDL Cholesterol HDL Cholesterol Procalcitonin TSH COVID-19 ([facility]) Microbiology 10/15/20 13:39 Mucosa - Nasopharyngeal Respiratory Panel (PCR) - Final 10/15/20 14:55 Urine Catheter - Barraza Legionella Antigen - Final 10/15/20 14:55 Urine Catheter - Barraza Streptococcus pneumoniae Antigen (M - Final 10/15/20 10:00 Mucosa - Nose SARS-CoV-2 Antigen (Rapid) - Final Clinical Impression(s) from Imaging Studies Chest X-Ray 10/15/20 09:54 IMPRESSION: Diffuse patchy airspace disease throughout the lungs with bibasilar consolidation and small effusions Electronically Signed: Noe Lopez DO at 11:02 EST Tel , Service support , Chest CTA 10/15/20 14:28 Current Medications Acetaminophen (Acetaminophen 325 Mg Tablet) 650 mg PO Q6H PRN PRN PRN Reason: Pain Score 1-10/Temp > 100.7 F Albuterol Sulfate (Albuterol 2.5 Mg/3 Ml Vial.Neb.) 2.5 mg INHALATION Q2H PRN PRN PRN Reason: SOB/Wheezing Aspirin (Aspirin E.C. 81 Mg Tablet) 81 mg PO DAILY COUNTS INCLUDE 234 BEDS AT THE [facility] Dexamethasone Sodium Phosphate (Dexamethasone 10 Mg/Ml Vial) 6 mg IV DAILY COUNTS INCLUDE 234 BEDS AT THE [facility] Last Admin: 10/15/20 16:08 Dose: Not Given Documented by: Enoxaparin Sodium (Enoxaparin 60 Mg/0.6 Ml Syringe) 60 mg SC Q12@1000,1800 COUNTS INCLUDE 234 BEDS AT THE [facility] Last Admin: 10/15/20 17:52 Dose: Not Given Documented by: Furosemide (Furosemide 40 Mg/4 Ml Vial) 40 mg IV BID@0800,1400 COUNTS INCLUDE 234 BEDS AT THE [facility] Melatonin (Melatonin 3 Mg Tablet) 3 mg PO QHS PRN PRN PRN Reason: INSOMNIA Morphine Sulfate (Morphine 2 Mg/Ml Syringe) 2 mg IV Q3H PRN PRN PRN Reason: Pain Score 6-10 Nitroglycerin (Nitroglycerin (Inpatient Use) 0.4 Mg Tab.Subl) 0.4 mg SUBLINGUAL Q5M PRN PRN Reason: CARDIAC/CHEST PAIN Oxycodone HCl (Oxycodone 5 Mg Tablet) 5 mg PO Q4H PRN PRN PRN Reason: Pain Score 4-5 Prochlorperazine Edisylate (Prochlorperazine 10 Mg/2 Ml Vial) 5 mg IV Q4H PRN PRN PRN Reason: Breakthrough Nausea/Vomiting Senna/Docusate Sodium (Senna/Docusate Sodium 1 Tablet) 2 tablet PO BID PRN PRN PRN Reason: Constipation Sodium Chloride (0.9% Saline Lock 10 Ml Syringe) 10 - 40 ml IV UD PRN PRN Reason: SALINE FLUSH Assessment/Plan Active and Suspected Problems Acute respiratory failure with hypoxia and hypercapnia (Acute) RECOMMENDATIONS: 1. Discontinue Decadron on therapeutic Lovenox. 2. Continue diuretic therapy as tolerated by hemodynamics and renal function. 3. Encourage incentive spirometer use and mobilize patient as tolerated. 4. Await results of echocardiogram. 5. The patient is medically stable for transfer out of the intensive care unit. 6. Given the patient's lack of further ICU or pulmonary needs, will sign off. Please call with any additional questions. IMPRESSIONS: 1. Acute hypoxemic respiratory failure Most likely secondary to decompensated heart failure, given findings noted on CTA and elevated BNP. The patient responded avidly to diuretics and noninvasive positive pressure ventilatory support. She is currently maintaining appropriate oxygen saturations on room air. Given the patient's tobacco abuse history, it is reasonable to continue as needed bronchodilator therapy. In addition, given the questionable consolidations on CT, continuing Levaquin to complete a 7-day treatment course would also be reasonable as well. Repeat echocardiogram is currently pending. The patient will be continued on diuretics as tolerated by hemodynamics and renal function, under the discretion of cardiology. 2. Non-ST segment elevation MS Continue current medical management per cardiology recommendations. 3. History of tobacco dependency I personally spent 4 minutes discussing the deleterious effects of continued tobacco use with the patient, including modalities which could be utilized to achieve a smoke-free lifestyle. Nicotine replacement therapy can be offered to the patient while admitted to the hospital. This note was generated with [employer] software. It may contain incorrect words, spelling, and punctuation that were not noted in checking the note before signing. Inpatient E&M: 33453 Init Hosp L3 - Behavior Interventions Behavior Intervention: 62632 Smoking Cessation 3-10 min
[2020-10-16 05:41] LABS: ALB/GLOB Ratio 1.1 RATIO (0.9-2.4); AST(SGOT) 46 U/L (15-37); Alanine Aminotransfer ALT/SGPT 69 U/L (13-56); Albumin, Serum 2.9 g/dL (3.2-5.0); Alkaline Phosphatase 122 U/L (45-117); Anion Gap 4 (5-15); BUN 15 mg/dL (7-18); BUN/Creat Ratio 21.2 RATIO (10-20); Bilirubin, Direct 0.19 mg/dL (0.00-0.30); Calcium,Total 8.2 mg/dL (8.5-10.1); Chloride 104 mmol/L (98-107); Cholesterol 138 mg/dL (200); Creatinine, Serum 0.71 mg/dL (0.55-1.02); EST Glomerular Filtration Rate 87 mL/min (>60); Est Glom Filt Rate - Afr Amer 105 mL/min (>60); Estimated Creatinine Clearance 41.99 ml/min; Globulin 2.7 g/dL (2.2-4.2); Glucose 116 mg/dL (74-106); High Density Lipoprotein 50 mg/dL; Potassium 3.6 mmol/L (3.5-5.1); Protein, Total 5.6 g/dL (6.4-8.2); Sodium Level 138 mmol/L (136-145); Thyroid Stim Hormone (TSH) 0.45 uIU/mL (0.358-3.74); Triglycerides 76 mg/dL; Very Low Density Lipoprotein 15 mg/dL (5-40)
--- NOTE | 2020-10-16 07:25 | PCM.PN.HOSP ---
Patient Problems: Active and Suspected Problems Acute respiratory failure with hypoxia and hypercapnia (Acute) Reason for Visit: Follow-up for acute hypoxic respiratory failure secondary to pulmonary edema and pneumonia Objective: Patient did not had fever, T-max 99.[address] chest with IV contrast. EEG negative. CTPA shows dense consolidation in right lower lobe, patchy infiltrate in left lower lobe along with trace bilateral pleural effusion. Bilateral interlobular septal thickening suggestive of pulmonary edema. Patient started on IV Levaquin. Currently respiratory rate 20 to 22/min pulse ox 92% on room air. Vitals/I&O's: Vital Signs Temp Pulse Resp BP Pulse Ox 98.9 F 97 22 H 116/75 92 10/16/20 06:00 10/16/20 06:00 10/16/20 06:00 10/16/20 06:00 10/16/20 06:00 Oxygen Flow Rate (L/min) 2 Oxygen Delivery Method Room Air Weight: 126 lb 12.253 oz Body Mass Index (BMI) 23.6 Intake and Output for Last 24 Hours 10/14/20 10/15/20 10/16/20 23:59 23:59 23:59 Intake Total 390 / 390 240 / 240 Output Total 2500 / 2500 450 / 450 Balance -2110 / -2110 -210 / -210 Microbiology Past 72 Hours 10/15/20 13:39 Mucosa - Nasopharyngeal Respiratory Panel (PCR) - Final 10/15/20 14:55 Urine Catheter - Barraza Legionella Antigen - Final 10/15/20 14:55 Urine Catheter - Barraza Streptococcus pneumoniae Antigen (M - Final 10/15/20 10:00 Mucosa - Nose SARS-CoV-2 Antigen (Rapid) - Final Laboratory Results 10/15/20 10:00: WBC 10.8, RBC 4.96, Hgb 14.8, Hct 46.5, MCV 93.8, MCH 29.8, MCHC 31.8 L, RDW Std Deviation 46.9 H, RDW Coeff of Toby 13.5, Plt Count 313, MPV 11.0, Immature Gran % (Auto) 0.200, Neut % (Auto) 88.1 H, Lymph % (Auto) 7.2 L, Pitkin % (Auto) 4.3, Eos % (Auto) 0.0, Baso % (Auto) 0.2, Absolute Neuts (auto) 9.5 H, Absolute Lymphs (auto) 0.77 L, Nucleated RBC % 0 10/15/20 10:00: Sodium 134 L, Potassium 3.8, Chloride 99, Carbon Dioxide 26.0, Anion Gap 9, BUN 18, Creatinine 0.72, Estim Creat Clear Calc 41.99, Est GFR (MDRD) Af Amer 104, Est GFR (MDRD) Non-Af 86, BUN/Creatinine Ratio 25.1 H, Glucose 171 H, Calcium 9.0, Troponin I 0.294 H 10/15/20 10:00: B-Natriuretic Peptide 4573.0 H 10/15/20 10:00: D-Dimer Quant (PE/DVT) 0.96 H* 10/15/20 10:00: Procalcitonin < 0.04 10/15/20 11:42: Specimen Type ART, Sample Site L Radial, pH 7.25 L, Bicarbonate Actual 25.5, Total CO2 27, Base Excess -2, O2 Saturation 100 H, O2 % 100, ABG pCO2 58.0 H, ABG pO2 378 H*, Carroll Test Positive, O2 Delivery Device BiPAP, Vent Mode NIV 10/15/20 13:37: COVID-19 ([facility]) Negative 10/15/20 14:50: Fibrinogen Cancelled 10/15/20 14:50: Lactate Dehydrogenase 377 H, C-React Prot Ext Range < 2.90 10/15/20 14:50: Magnesium 1.9 10/15/20 14:50: Lactic Acid 1.7 10/15/20 14:50: Troponin I 0.593 H 10/15/20 15:40: Fibrinogen 295 10/15/20 17:40: Troponin I 0.902 H* 10/16/20 04:45: Sodium 138, Potassium 3.6, Chloride 104, Carbon Dioxide 30.0, Anion Gap 4 L, BUN 15, Creatinine 0.71, Estim Creat Clear Calc 41.99, Est GFR (MDRD) Af Amer 105, Est GFR (MDRD) Non-Af 87, BUN/Creatinine Ratio 21.2 H, Glucose 116 H, Calcium 8.2 L, Total Bilirubin 0.60, Direct Bilirubin 0.19, AST 46 H, ALT 69 H, Alkaline Phosphatase 122 H, Troponin I 0.845 H*, Total Protein 5.6 L, Albumin 2.9 L, Globulin 2.7, Albumin/Globulin Ratio 1.1, Triglycerides 76, Cholesterol 138, LDL Cholesterol 73, VLDL Cholesterol 15, HDL Cholesterol 50, TSH 0.45 10/16/20 04:45: WBC 9.9, RBC 4.11 L, Hgb 12.4, Hct 37.3, MCV 90.8, MCH 30.2, MCHC 33.2, RDW Std Deviation 44.6 H, RDW Coeff of Toby 13.3, Plt Count 270, MPV 10.8, Immature Gran % (Auto) 0.300, Neut % (Auto) 77.8 H, Lymph % (Auto) 12.1 L, Pitkin % (Auto) 9.4, Eos % (Auto) 0.2, Baso % (Auto) 0.2, Absolute Neuts (auto) 7.7, Absolute Lymphs (auto) 1.20, Nucleated RBC % 0 Current Medications Acetaminophen (Acetaminophen 325 Mg Tablet) 650 mg PO Q6H PRN PRN PRN Reason: Pain Score 1-10/Temp > 100.7 F Albuterol Sulfate (Albuterol 2.5 Mg/3 Ml Vial.Neb.) 2.5 mg INHALATION Q2H PRN PRN PRN Reason: SOB/Wheezing Aspirin (Aspirin E.C. 81 Mg Tablet) 81 mg PO DAILY [facility] Furosemide (Furosemide 40 Mg/4 Ml Vial) 40 mg IV BID@0800,1400 [facility] Levofloxacin (Levaquin Iv) 750 mg in 150 mls @ 100 mls/hr IV Q24 [facility] Nitroglycerin (Nitroglycerin (Inpatient Use) 0.4 Mg Tab.Subl) 0.4 mg SUBLINGUAL Q5M PRN PRN Reason: CARDIAC/CHEST PAIN Prochlorperazine Edisylate (Prochlorperazine 10 Mg/2 Ml Vial) 5 mg IV Q4H PRN PRN PRN Reason: Breakthrough Nausea/Vomiting Senna/Docusate Sodium (Senna/Docusate Sodium 1 Tablet) 2 tablet PO BID PRN PRN PRN Reason: Constipation Sodium Chloride (0.9% Saline Lock 10 Ml Syringe) 10 - 40 ml IV UD PRN PRN Reason: SALINE FLUSH STROKE Vital Signs/Narrative: Vital Signs Temp Pulse Resp BP Pulse Ox 10/16/20 06:00 98.9 F 97 22 H 116/75 92 10/16/20 05:00 99.1 F 97 22 H 100/62 91 10/16/20 04:00 98.9 F 97 20 H 112/60 95 10/16/20 03:34 99 Medical Necessity - Tobacco Use Smoking Status: Current every day smoker Assessment/Plan All Active Problems Acute exacerbation of CHF (congestive heart failure) (Ruled-out) Acute respiratory failure with hypoxia and hypercapnia (Acute) The patient is a 69 year old F with history of CHF status post AICD, details not known came to ED with progressive worsening of shortness of breath for 2 weeks. Patient put on BiPAP in ED In ED, chest x-ray shows patchy consolidation throughout the lungs, predominantly on the right lung base with bibasilar consolidation/small effusions. Twelve-lead EKG atrial sensed ventricular paced rhythm at 102 bpm. QTC 503 ms. Previous EKG in about 2011 was similar. Patient follows director cardiovascular in [facility]. 1. Acute hypoxic and hypercarbic respiratory failure on BiPAP most probably secondary to CHF exacerbation: Patient was admitted in ICU. ABG 7.25/58/378/26 on 100% FiO2 BiPAP. Discussed with the shell core and molding supervisor. Lasix 40 mg IV twice daily with CHF core measures strict input and output, daily weight monitoring and 2 g sodium diet. We will try to get record from director cardiovascular, [facility]. His director cardiovascular name is Dr. Vik Nevarez 10/16: Patient respiratory status has improved and currently 92% on room air. Medically stable for transfer out of ICU. 2. Bilateral feet toes cyanosis probably secondary to environmental:: Patient does during admission or cyanotic purplish but color improved. Patient distal pulses are palpable. Patient was seen by director cardiovascular, Dr Barcenas and acute limb ischemia ruled out. Arterial Doppler and vascular check were ordered. Lovenox was discontinued. D-dimer 0.96. CTPA was also negative for PE. Continue aspirin 81 mg daily. 3. Acute on chronic CHF, exact type and etiology unclear but probably nonischemic cardiomyopathy: Serial troponins elevated 0.294, maximum 0.902 and then trended down 0.845. Follow 2D echo. Coreg is resumed at lower dose 6.25 mg p.o. twice daily. TSH 0.45. 4. Bilateral lower lobes community-acquired pneumonia: Rapid antigen is negative. COVID-19 PCR, respiratory panel and sputum culture ordered. Lactic acid and inflammatory markers is ordered. Cancel ID consult. CT chest shows dense right lower lobe consolidation and patchy infiltrate in left lower lobe. On IV Levaquin. Urinary antigens are negative. COVID-19 rapid antigen and PCR are negative. Respiratory panel negative VT prophylaxis on Lovenox 40 mg daily. Living will/advanced directive/end of life care: Patient does not have living will or advanced directive. After discussion of benefits/risks procedures involved with full code, DNR CC arrest and DNR CC, the patient opted for DNR-CC Arrest with no intubation Patient does not want artificial life support including intubation, tube feed, ventilator and/chest compression, vasopressor and DC shock if needed Total time spent in [id number] encounter in discussion of advanced directive 16 minutes. Clinical Impression(s) from Imaging Studies Chest X-Ray 10/15/20 09:54 IMPRESSION: Diffuse patchy airspace disease throughout the lungs with bibasilar consolidation and small effusions Inpatient E&M: 44040 [facility] Hosp L3
--- NOTE | 2020-10-16 08:43 | CASEMGMT ---
FRANK OWENS assessment: Phone interview with patient for initial transition planning/care coordination assessment. FRANK OWENS introduced self and role at [facility], pt voices understanding and consents to assessment at this time. Pt is A/Ox4 at this time and answers all questions appropriately at this time. Pt is speaks in full sentences with no SOB at this time. Pt is currently on room air at this time. Care providers, pharmacy, and demographics verified/updated at this time. Presentation: Pt w/ increased SOB this am Admitting dx: Acute resp failure, HF, COPD? PCP: Pt does not have PCP and declines PCP list at this time. Pt states she will speak with family/friends with recommendations for this. Specialists: [facility] in [place] Preferred Pharmacy: [facility] Insurance: [facility] A/B Prescription Benefit: Pt states she does not have Rx coverage and states no concerns with paying for meds at this time. Living Will/HPOA: Pt states she does not have LW/HPOA and declines AD info at this time. LNOK: Osmel Lau, brother; Ralf Andres, son Living Arrangements: Pt states lives alone in 2 story home with her cats and states no concerns at home at this time. Pt states is independent with ADL's. Transportation: Pt states drives self and states no transportation concerns at this time. DME/HHC: Pt states no current DME or need for any at this time. Pt states no hx of HHC or SNF in the past. Pt states no preference for DME company, if needed at discharge. Pt states no concerns with going home at time of discharge. Pt states is retired. Pt states smokes 1/2pk cigarettes daily and does not drink ETOH. Pt states no further concerns/needs at this time. CM to follow for any further discharge planning/needs. Advised pt to ask for CM if any further questions/concerns/needs arise, voices understanding. Pt Goal: Home Plan[place] FRANK OWENS
[2020-10-16] MEDS: Furosemide 40 MG/4 ML Vial IV ×2 (09:09→15:00)
[2020-10-16] MEDS: Carvedilol 6.25 MG Tablet PO ×2 (09:11→21:47)
[2020-10-16] MEDS: Aspirin E.C. 81 MG Tablet PO (09:11)
[2020-10-16] MEDS: Enoxaparin 40 MG/0.4 ML Syringe SC (09:11)
[2020-10-16] MEDS: levoFLOXacin IV 750 MG/150 ML BAG 100 MG IV (09:11)
[2020-10-16] MEDS: 0.9% Saline Lock 10 ML Syringe IV (09:18)
--- NOTE | 2020-10-16 10:03 | PCM.PN.CARD ---
Subjectve: The patient is feeling better. Her shortness of breath improved. The patient lower extremity swelling also improved. The patient says she has some feverish feeling in her eyes. Patient denies any typical anginal symptoms. Objective: Vital Signs Temp Pulse Resp BP Pulse Ox 98.8 F 95 16 132/66 H 94 10/16/20 08:00 10/16/20 09:00 10/16/20 09:00 10/16/20 09:00 10/16/20 09:00 Oxygen Flow Rate (L/min) 2 Oxygen Delivery Method Room Air Weight: 126 lb 12.253 oz Body Mass Index (BMI) 23.6 Intake and Output for Last 24 Hours 10/14/20 10/15/20 10/16/20 23:59 23:59 23:59 Intake Total 390 / 390 240 / 240 Output Total 2500 / 2500 450 / 450 Balance -2110 / -2110 -210 / -210 Physical Exam GENERAL: This is a well-nourished who is appropriate and articulate at the time of evaluation. VITAL SIGNS: please see collected data HEENT: Exam is benign. Normocephalic and atraumatic. Oral mucosa is pink and moist. NECK: Jugular venous pulsations are normal. Carotid upstrokes are palpable bilaterally. There is no audible bruit. LUNGS: Decreased breath sound to Auscultation Bilaterally, No rales, rhonchi or wheezes CARDIAC: Tachycardic . S1 and S2 with NILESH at apex, no rub, or gallop appreciated. The point of maximal impulse is normal. ABDOMEN: Obese, soft with active bowel sounds. No organomegaly. No audible bruit. Nontender To Palpation EXTREMITIES: Femoral pulses were palpable bilaterally. There is DP and PT pulse bilaterally. The patient may have Raynaud's phenomenon. The lower extremity swelling is much improved. The patient coloration is also improved. OMM: Patient was examined in supine position; there was no acute tissue changes other stated in Lymphs: No lymphadenopathy Neuro: CN 2-12 are grossly intact, no focal neurological deficit. 10/15/20 10:00: WBC 10.8, RBC 4.96, Hgb 14.8, Hct 46.5, MCV 93.8, MCH 29.8, MCHC 31.8 L, Plt Count 313, MPV 11.0, Immature Gran % (Auto) 0.200, Neut % (Auto) 88.1 H, Lymph % (Auto) 7.2 L, Trinity % (Auto) 4.3, Eos % (Auto) 0.0, Baso % (Auto) 0.2, Absolute Neuts (auto) 9.5 H, Nucleated RBC % 0 10/15/20 10:00: Sodium 134 L, Potassium 3.8, Chloride 99, Carbon Dioxide 26.0, Anion Gap 9, BUN 18, Creatinine 0.72, Est GFR (MDRD) Af Amer 104, Est GFR (MDRD) Non-Af 86, BUN/Creatinine Ratio 25.1 H, Glucose 171 H, Calcium 9.0, Troponin I 0.294 H 10/15/20 10:00: B-Natriuretic Peptide 4573.0 H 10/15/20 10:00: D-Dimer Quant (PE/DVT) 0.96 H* 10/15/20 11:42: pH 7.25 L, Bicarbonate Actual 25.5, Base Excess -2, O2 Saturation 100 H, ABG pCO2 58.0 H, ABG pO2 378 H*, Carroll Test Positive 10/15/20 14:50: Magnesium 1.9 10/15/20 14:50: Lactic Acid 1.7 10/15/20 14:50: Troponin I 0.593 H 10/15/20 17:40: Troponin I 0.902 H* 10/16/20 04:45: Sodium 138, Potassium 3.6, Chloride 104, Carbon Dioxide 30.0, Anion Gap 4 L, BUN 15, Creatinine 0.71, Est GFR (MDRD) Af Amer 105, Est GFR (MDRD) Non-Af 87, BUN/Creatinine Ratio 21.2 H, Glucose 116 H, Calcium 8.2 L, Total Bilirubin 0.60, Direct Bilirubin 0.19, Troponin I 0.845 H*, Triglycerides 76, Cholesterol 138, LDL Cholesterol 73, VLDL Cholesterol 15, HDL Cholesterol 50 10/16/20 04:45: WBC 9.9, RBC 4.11 L, Hgb 12.4, Hct 37.3, MCV 90.8, MCH 30.2, MCHC 33.2, Plt Count 270, MPV 10.8, Immature Gran % (Auto) 0.300, Neut % (Auto) 77.8 H, Lymph % (Auto) 12.1 L, Trinity % (Auto) 9.4, Eos % (Auto) 0.2, Baso % (Auto) 0.2, Absolute Neuts (auto) 7.7, Nucleated RBC % 0 Rhythm: EKG: ECHO: Stress Test: Cardiac Cath: PCI: CT Surgery: Holter monitor: EPS: PPM: CXR: Chest CT Scan: Medical Necessity - Tobacco Use Smoking Status: Current every day smoker Assessment/Plan Impression and recommendation + October 16, 2020 -The patient is clinically improving, the patient does have a low-grade temperature. Her troponins trending down. The patient underwent a CT angio of the chest which was negative for PE. We will obtain echo today to evaluate for evidence structure. The patient has good urine output overnight. We recommend continued diuresis for now. We will plan to transition to oral Lasix in the morning. We will continue to correct electrolytes as needed. -From a cardiac standpoint, will not plan to proceed with any invasive medical therapy for now. The patient does have a Manager Of Planning outpatient and would like to do further evaluation cardiac olivares outpatient if possible. -The patient current cardiovascular medication include Carvedilol 6.25 mg twice daily Lasix 40 mg twice daily Aspirin 81 mg daily Nitrostat as needed We will continue to optimize the patient medical therapy as tolerated. + NSTEMI type II ECG showed sinus tachycardia with no evidence of acute ischemia. There is pulmonary pattern concerning for pulmonary disease. Patient has an elevated troponin level along with the tachycardia and initially hypotensive and hypoxic. The D-dimer is elevated. We recommend rule out PE. Will order for CT angio of the chest to rule out PE. Additionally, the patient chest x-ray is concerning for COVID-19 pneumonia. We will continue to monitor closely We will order an echo to evaluate for evidence structure. We recommend continue with the Lovenox full dose. We will going to implement cardiac medical therapy as tolerated. We will start the patient on Lasix 40 mg twice daily. We recommend accurate I/O's. -We will also obtain record for more hired worker when possible. + Acute exacerbation of heart failure with reduced LVEF -See management above + Lower extremity discoloration -The patient reports she does not usually noticed that her feet are purplish. However, she admits that she does only watch it. The patient reports since the admission, her feet some much better in coloration. We suspect that this may be due to renal phenomenon. The patient distal pulses are normal. Hence this is highly unlikely that she has an acute limb ischemia. There is no pain, pallor, petechiae, neurovascular bundle being compromised. Her sensations are intact. We will continue to monitor closely. + Acute respiratory failure -Management above. Primary team is also following. Patient was started on antibiotics. + History of AICD -Patient reports the last time [employer] check her AICD which was about 6 months ago. She was told her it was normal. + Hypertension -Monitor for now
--- NOTE | 2020-10-16 19:00 | PCS.PANDOC ---
PANDEMIC DOCUMENTATION INITIATED: Date: 10/15/20 Time: 13:15
[2020-10-16] MEDS: ALPRAZolam 0.5 MG Tablet PO (21:47)
[2020-10-17] VITALS (8 sets, daily range): BP systolic 92–111; BP diastolic 54–72; PULSE 77–109; RESP 16–18; TEMP 36.6–37; O2SAT 92–93
[2020-10-17 06:42] LABS: Absolute Lymphocyte Count 1.84 X10^3/uL (0.83-4.51); Absolute Neutrophil Count 5.3 X10^3/uL (2.0-7.7); Basophil# 0.05 X10^3/uL; Basophil% 0.6 % (0-1); Eosinophil# 0.06 X10^3/uL; Eosinophils% 0.7 % (0-5); Hematocrit 41.5 % (37-47); Hemoglobin 13.7 g/dL (12.0-15.0); Lymphocyte # 1.84 X10^3/ul (4.0); Lymphocyte % 22.4 % (19-41); Mean Corpuscular Hgb 30.2 pg (27.0-32.0); Mean Corpuscular Volume 91.4 fL (81-99); Mean Platelet Vol. 10.2 fl (6.2-12.0); Monocyte# 0.92 X10^3/uL; Monocyte% 11.2 % (0-10); NRBC Flagged by Analyzer 0 % (0-5); Neutrophil # 5.32 X10^3/uL (2.7-7.7); Neutrophil % 64.9 % (47-70); Platelet Count 269 K/mm3 (150-450); RBC Distribution Width CV 13.3 % (11.6-14.6); Red Blood Count 4.54 M/mm3 (4.2-5.4); White Blood Count 8.2 K/mm3 (4.4-11.0)
--- NOTE | 2020-10-17 07:38 | PCM.PN.HOSP ---
Patient Problems: Active and Suspected Problems Acute respiratory failure with hypoxia and hypercapnia (Acute) Objective: Heart rate and blood pressure are in normal range. Afebrile. Vitals/I&O's: Vital Signs Temp Pulse Resp BP Pulse Ox 98.1 F 109 H 16 111/72 93 10/17/20 04:05 10/17/20 05:57 10/17/20 04:05 10/17/20 04:05 10/17/20 04:05 Oxygen Flow Rate (L/min) 2 Oxygen Delivery Method Room Air Weight: 116 lb 6.465 oz Body Mass Index (BMI) 23.6 Intake and Output for Last 24 Hours 10/15/20 10/16/20 10/17/20 23:59 23:59 23:59 Intake Total 390 / 390 870 / 870 240 / 240 Output Total 2500 / 2500 3925 / 3925 275 / 275 Balance -2110 / -2110 -3055 / -3055 -35 / -35 Microbiology Past 72 Hours 10/15/20 15:00 Blood Culture (Wb) - Right Forearm Blood Culture - Preliminary No growth in 48 hours. 10/15/20 14:50 Blood Culture (Wb) - Anticubital Left Blood Culture - Preliminary No growth in 48 hours. 10/16/20 09:00 Sputum, Expectorated/Coughed Gram Stain - Final 10/15/20 13:39 Mucosa - Nasopharyngeal Respiratory Panel (PCR) - Final 10/15/20 14:55 Urine Catheter - Barraza Legionella Antigen - Final 10/15/20 14:55 Urine Catheter - Barraza Streptococcus pneumoniae Antigen (M - Final 10/15/20 10:00 Mucosa - Nose SARS-CoV-2 Antigen (Rapid) - Final Laboratory Results 10/17/20 06:25: WBC 8.2, RBC 4.54, Hgb 13.7, Hct 41.5, MCV 91.4, MCH 30.2, MCHC 33.0, RDW Std Deviation 45.0 H, RDW Coeff of Toby 13.3, Plt Count 269, MPV 10.2, Immature Gran % (Auto) 0.200, Neut % (Auto) 64.9, Lymph % (Auto) 22.4, [place] % (Auto) 11.2 H, Eos % (Auto) 0.7, Baso % (Auto) 0.6, Absolute Neuts (auto) 5.3, Absolute Lymphs (auto) 1.84, Nucleated RBC % 0 10/17/20 06:25: Sodium Pending, Potassium Pending, Chloride Pending, Carbon Dioxide Pending, Anion Gap Pending, BUN Pending, Creatinine Pending, Est GFR (MDRD) Af Amer Pending, Est GFR (MDRD) Non-Af Pending, BUN/Creatinine Ratio Pending, Glucose Pending, Calcium Pending, Total Bilirubin Pending, AST Pending, ALT Pending, Alkaline Phosphatase Pending, Total Protein Pending, Albumin Pending Current Medications Acetaminophen (Acetaminophen 325 Mg Tablet) 650 mg PO Q6H PRN PRN PRN Reason: Pain Score 1-10/Temp > 100.7 F Albuterol Sulfate (Albuterol 2.5 Mg/3 Ml Vial.Neb.) 2.5 mg INHALATION Q2H PRN PRN PRN Reason: SOB/Wheezing Aspirin (Aspirin E.C. 81 Mg Tablet) 81 mg PO DAILY [facility] Last Admin: 10/16/20 09:11 Dose: 81 mg Documented by: Carvedilol (Carvedilol 6.25 Mg Tablet) 6.25 mg PO BID [facility] Last Admin: 10/16/20 21:47 Dose: 6.25 mg Documented by: Enoxaparin Sodium (Enoxaparin 40 Mg/0.4 Ml Syringe) 40 mg SC DAILY [facility] Last Admin: 10/16/20 09:11 Dose: 40 mg Documented by: Furosemide (Furosemide 40 Mg/4 Ml Vial) 40 mg IV BID@0800,1400 [facility] Last Admin: 10/16/20 15:00 Dose: 40 mg Documented by: Levofloxacin (Levaquin Iv) 750 mg in 150 mls @ 100 mls/hr IV Q24 [facility] Last Infusion: 10/16/20 13:50 Dose: Infused Documented by: Nitroglycerin (Nitroglycerin (Inpatient Use) 0.4 Mg Tab.Subl) 0.4 mg SUBLINGUAL Q5M PRN PRN Reason: CARDIAC/CHEST PAIN Prochlorperazine Edisylate (Prochlorperazine 10 Mg/2 Ml Vial) 5 mg IV Q4H PRN PRN PRN Reason: Breakthrough Nausea/Vomiting Senna/Docusate Sodium (Senna/Docusate Sodium 1 Tablet) 2 tablet PO BID PRN PRN PRN Reason: Constipation Sodium Chloride (0.9% Saline Lock 10 Ml Syringe) 10 - 40 ml IV UD PRN PRN Reason: SALINE FLUSH Last Admin: 10/16/20 09:18 Dose: 10 ml Documented by: STROKE Vital Signs/Narrative: Vital Signs Temp Pulse Resp BP Pulse Ox 10/17/20 05:57 109 H 10/17/20 04:05 98.1 F 81 16 111/72 93 Medical Necessity - Tobacco Use Smoking Status: Current every day smoker Assessment/Plan All Active Problems Acute exacerbation of CHF (congestive heart failure) (Ruled-out) Acute respiratory failure with hypoxia and hypercapnia (Acute)
[2020-10-17 08:52] LABS: ALB/GLOB Ratio 1.1 RATIO (0.9-2.4); AST(SGOT) 31 U/L (15-37); Alanine Aminotransfer ALT/SGPT 63 U/L (13-56); Albumin, Serum 3.1 g/dL (3.2-5.0); Alkaline Phosphatase 127 U/L (45-117); Anion Gap 5 (5-15); BUN 17 mg/dL (7-18); BUN/Creat Ratio 22.7 RATIO (10-20); Calcium,Total 8.5 mg/dL (8.5-10.1); Chloride 101 mmol/L (98-107); Creatinine, Serum 0.75 mg/dL (0.55-1.02); EST Glomerular Filtration Rate 81 mL/min (>60); Est Glom Filt Rate - Afr Amer 98 mL/min (>60); Estimated Creatinine Clearance 41.99 ml/min; Globulin 2.8 g/dL (2.2-4.2); Glucose 99 mg/dL (74-106); Potassium 3.3 mmol/L (3.5-5.1); Protein, Total 5.9 g/dL (6.4-8.2); Sodium Level 139 mmol/L (136-145)
[2020-10-17 09:19] LABS: Phosphorus 3.9 mg/dL (2.5-4.9)
[2020-10-17] MEDS: Furosemide 40 MG/4 ML Vial IV (09:19)
[2020-10-17] MEDS: 0.9% Saline Lock 10 ML Syringe IV ×2 (09:19→10:11)
[2020-10-17] MEDS: Aspirin E.C. 81 MG Tablet PO (09:19)
[2020-10-17] MEDS: Enoxaparin 40 MG/0.4 ML Syringe SC (09:19)
--- NOTE | 2020-10-17 09:22 | PCM.DC ---
- Discharge Diagnoses Current Active Problems: Current Active and Chronic Problems Hypertension (Chronic) Acute respiratory failure with hypoxia and hypercapnia (Acute) You will use the following diet at home:: Cardiac Your food should be the consistency of: Regular Discharge Activity: May Not Drive - for 1 week Weight Bearing Status: Weight bearing as tolerated Call your doctor if you observe: Fever of 101 or Higher, Coldness, Increased Pain, Numbness or Tingling, Change in Color, Inability to urinate, Inability to have a bowel movement, Shortness of breath, Dizziness, Fainting spells, Swelling in the ankles, Chest pain, Prolonged hiccoughing, Increased palpitations (irregular heartbeat), Calf discomfort, Uncontrolled pain Additional Instructions: Follow-up patient's newspaper copy editor Josette Wright in 1 to 2 weeks regarding the titration of Lasix, follow-up BMP and electrolytes Allergies/Adverse Reactions: Allergies Sulfa (Sulfonamide Antibiotics) Allergy (Verified 02/27/15 05:31) Rash amoxicillin Adverse Reaction (Verified 02/27/15 05:31) Other Medications to take at Discharge Carvedilol [Coreg (Beta Erin)] 12.5 mg PO BID 02/27/15 Aspirin E.C. [Ecotrin] 81 mg PO DAILY #30 tab 10/17/20 Furosemide [Lasix] 40 mg PO DAILY #30 tab 10/17/20 Levofloxacin [Levaquin] 500 mg PO DAILY #4 tab 10/17/20 Potassium Chloride [K-Dur] 40 meq PO DAILY #30 tab 10/17/20 The following prescriptions were given: Aspirin E.C. [Ecotrin] 81 mg PO DAILY #30 tab Transmission Status: Pending to [facility] Potassium Chloride [K-Dur] 40 meq PO DAILY #30 tab Transmission Status: Pending to [facility] Furosemide [Lasix] 40 mg PO DAILY #30 tab Transmission Status: Pending to [facility] Levofloxacin [Levaquin] 500 mg PO DAILY #4 tab Transmission Status: Pending to [facility] Primary Care Physician: Care Physician,No Primary [Primary Care Provider] - Please follow up with your Primary Care Physician in: in 1-2 weeks regarding the titration of Lasix, follow-up BMP Test Results: Test results from this visit will be discussed in further detail at your follow-up appointment, if applicable.
--- NOTE | 2020-10-17 09:28 | PCM.DC.SUM ---
Discharge Date and Diagnosis - Problem List Patient Problems: Active and Suspected Problems Acute respiratory failure with hypoxia and hypercapnia (Acute) Date of Admission: 10/15/20 Date of Discharge: 10/17/20 - Primary Discharge Diagnosis Acute Problems: Active Problems Acute respiratory failure with hypoxia and hypercapnia (Acute) Acute on chronic systolic and diastolic combined heart failure Bilateral lower lobes pneumonia most probably bacterial pneumonia - Secondary Discharge Diagnosis Chronic Problems: Chronic Problems Hypertension (Chronic) Hospital Course and Treatment Summary of Care Provided: [] The patient is a 69 year old F with history of CHF status post AICD, details not known came to ED with progressive worsening of shortness of breath for 2 weeks. Patient put on BiPAP in ED In ED, chest x-ray shows patchy consolidation throughout the lungs, predominantly on the right lung base with bibasilar consolidation/small effusions. Twelve-lead EKG atrial sensed ventricular paced rhythm at 102 bpm. QTC 503 ms. Previous EKG in about 2011 was similar. Patient follows drafter heating and ventilating in [facility]. 1. Acute hypoxic and hypercarbic respiratory failure on BiPAP most probably secondary to CHF exacerbation: Patient was admitted in ICU. ABG 7.25/58/378/26 on 100% FiO2 BiPAP. Discussed with the chimney supervisor brick. Lasix 40 mg IV twice daily with CHF core measures strict input and output, daily weight monitoring and 2 g sodium diet. His drafter heating and ventilating name is Dr. Vik Nevarez. Patient was transferred to PCU on 10/16. She is on room air for about 2 days Respiratory failure is resolved. 2. Bilateral feet toes cyanosis probably secondary to environmental:: Patient does during admission or cyanotic purplish but color improved. Patient distal pulses are palpable. Patient was seen by drafter heating and ventilating, Dr Barcenas and acute limb ischemia ruled out. Lovenox was discontinued. D-dimer 0.96. CTPA was also negative for PE. Continue aspirin 81 mg daily. Patient can have arterial vascular Doppler, JESSICA as an outpatient with PCP. 3. Acute on chronic CHF, exact type and etiology unclear but probably nonischemic cardiomyopathy: Serial troponins elevated 0.294, maximum 0.902 and then trended down 0.845. Follow 2D echo. Coreg is resumed at lower dose 6.25 mg p.o. twice daily. TSH 0.45. 2D echo was done which shows EF 15%, no gross LV thrombus. Severe generalized wall motion hypokinesis with severe diastolic dysfunction. Moderate to severe centrally directed MR. Moderate pulmonary hypertension, RVSP 55 mmHg. IVC dilated plethoric. Discussed with the drafter heating and ventilating on discharge medications. Coreg increased to 12.5 mg daily. Patient not on FLAVIO inhibitor or ARB at home, reason unclear. Patient leg edema has resolved and shortness of breath much improved currently on room air. Patient is discharged on Lasix 40 mg daily, spironolactone 12.5 mg daily, losartan 25 mg daily, Coreg 12.5 mg twice daily. Fasting profile LDL 73, HDL 50, TC 138. Patient was educated about how to titrate Lasix, daily weight check and and its potential side effect and follow-up BMP with PCP. 4. Bilateral lower lobes community-acquired bacterial pneumonia: Rapid antigen is negative. COVID-19 PCR, respiratory panel and sputum culture ordered. Lactic acid and inflammatory markers is ordered. CT chest shows dense right lower lobe consolidation and patchy infiltrate in left lower lobe. On IV Levaquin. Urinary antigens are negative. COVID-19 rapid antigen and PCR are negative. Respiratory panel negative. Patient is discharged on Levaquin to complete a total of 7 days. VT prophylaxis on Lovenox 40 mg daily. Discharge medication reconciliation done. Discharge follow-up instructions completed. Discharge process discussed with the patient and all questions were answered to patient's satisfaction. Patient discharged on Lasix, spironolactone, Levaquin and baby aspirin. Advised to follow-up PCP or drafter heating and ventilating in 1 week to titrate the dose of Lasix. Total time spent, exact 35 minutes on discharge meds reconciliation, examination, coordination of care with nurses and ancillary staff, review of imaging and blood test and discussion with the patient on follow-up instructions Living will/advanced directive/end of life care: Patient does not have living will or advanced directive. DNRCC arrest Patient Problems: Active and Suspected Problems Acute respiratory failure with hypoxia and hypercapnia (Acute) Objective: Heart rate and blood pressure are in normal range. Afebrile. Paced cardiac rhythm on monitor heart rate in 80s to 90s. Physical exam General: Alert, Oriented x3, Cooperative HEENT: Atraumatic, PERRLA, EOMI, Normocephalic Oral: No Gingival or Mucosal Lesions/ Ulcerations Neck: Supple, No JVD, Negative Carotid Bruits Lungs: Air entry diminished in bilateral lung bases. No crepitation/rhonchi or wheezing. 93% on room air. Cardiovascular: Regular rate, Regular Rhythm, Normal S1, Normal S2, No murmurs Abdomen: Bowel Sounds Present, Soft, Non Tender, Non-Distended : No renal angle tenderness. No suprapubic tenderness. Extremities: No all edema, Capillary Refill Less than 3 Seconds Skin: No rashes, No breakdown Musculoskeletal: No Tenderness to Palpation of Joints or Extremities Neurological: Cranial nerves II-XII grossly intact, Deep Tendon Reflexes 2+/4 and Symmetrical, Neuro grossly intact Psych/Mental Status: Normal Affect, Appropriate. - Physical Exam Vitals/I&O's: Vital Signs Temp Pulse Resp BP Pulse Ox 98.1 F 91 16 111/72 93 10/17/20 04:05 10/17/20 07:00 10/17/20 04:05 10/17/20 04:05 10/17/20 04:05 Oxygen Flow Rate (L/min) 2 Oxygen Delivery Method Room Air Weight: 116 lb 6.465 oz Body Mass Index (BMI) 23.6 Intake and Output for Last 24 Hours 10/15/20 10/16/20 10/17/20 23:59 23:59 23:59 Intake Total 390 / 390 870 / 870 240 / 240 Output Total 2500 / 2500 3925 / 3925 275 / 275 Balance -2110 / -2110 -3055 / -3055 -35 / -35 Microbiology Past 72 Hours 10/15/20 15:00 Blood Culture (Wb) - Right Forearm Blood Culture - Preliminary No growth in 48 hours. 10/15/20 14:50 Blood Culture (Wb) - Anticubital Left Blood Culture - Preliminary No growth in 48 hours. 10/16/20 09:00 Sputum, Expectorated/Coughed Gram Stain - Final 10/15/20 13:39 Mucosa - Nasopharyngeal Respiratory Panel (PCR) - Final 10/15/20 14:55 Urine Catheter - Barraza Legionella Antigen - Final 10/15/20 14:55 Urine Catheter - Barraza Streptococcus pneumoniae Antigen (M - Final 10/15/20 10:00 Mucosa - Nose SARS-CoV-2 Antigen (Rapid) - Final Laboratory Results 10/17/20 06:25: WBC 8.2, RBC 4.54, Hgb 13.7, Hct 41.5, MCV 91.4, MCH 30.2, MCHC 33.0, RDW Std Deviation 45.0 H, RDW Coeff of Toby 13.3, Plt Count 269, MPV 10.2, Immature Gran % (Auto) 0.200, Neut % (Auto) 64.9, Lymph % (Auto) 22.4, [place] % (Auto) 11.2 H, Eos % (Auto) 0.7, Baso % (Auto) 0.6, Absolute Neuts (auto) 5.3, Absolute Lymphs (auto) 1.84, Nucleated RBC % 0 10/17/20 06:25: Sodium 139, Potassium 3.3 L, Chloride 101, Carbon Dioxide 33.0 H, Anion Gap 5, BUN 17, Creatinine 0.75, Estim Creat Clear Calc 41.99, Est GFR (MDRD) Af Amer 98, Est GFR (MDRD) Non-Af 81, BUN/Creatinine Ratio 22.7 H, Glucose 99, Calcium 8.5, Total Bilirubin 0.60, AST 31, ALT 63 H, Alkaline Phosphatase 127 H, Total Protein 5.9 L, Albumin 3.1 L, Globulin 2.8, Albumin/Globulin Ratio 1.1 10/17/20 06:25: Phosphorus 3.9, Magnesium 2.0 Current Medications Acetaminophen (Acetaminophen 325 Mg Tablet) 650 mg PO Q6H PRN PRN PRN Reason: Pain Score 1-10/Temp > 100.7 F Albuterol Sulfate (Albuterol 2.5 Mg/3 Ml Vial.Neb.) 2.5 mg INHALATION Q2H PRN PRN PRN Reason: SOB/Wheezing Aspirin (Aspirin E.C. 81 Mg Tablet) 81 mg PO DAILY [facility] Last Admin: 10/17/20 09:19 Dose: 81 mg Documented by: Carvedilol (Carvedilol 12.5 Mg Tablet) 12.5 mg PO BID [facility] Enoxaparin Sodium (Enoxaparin 40 Mg/0.4 Ml Syringe) 40 mg SC DAILY [facility] Last Admin: 10/17/20 09:19 Dose: 40 mg Documented by: Furosemide (Furosemide 40 Mg/4 Ml Vial) 40 mg IV BID@0800,1400 [facility] Last Admin: 10/17/20 09:19 Dose: 40 mg Documented by: Levofloxacin (Levaquin Iv) 750 mg in 150 mls @ 100 mls/hr IV Q24 [facility] Last Infusion: 10/16/20 13:50 Dose: Infused Documented by: Nitroglycerin (Nitroglycerin (Inpatient Use) 0.4 Mg Tab.Subl) 0.4 mg SUBLINGUAL Q5M PRN PRN Reason: CARDIAC/CHEST PAIN Potassium Chloride (Potassium Chloride 20 Meq Tablet) 40 meq PO Q3H [facility] Stop: 10/17/20 15:01 Prochlorperazine Edisylate (Prochlorperazine 10 Mg/2 Ml Vial) 5 mg IV Q4H PRN PRN PRN Reason: Breakthrough Nausea/Vomiting Senna/Docusate Sodium (Senna/Docusate Sodium 1 Tablet) 2 tablet PO BID PRN PRN PRN Reason: Constipation Sodium Chloride (0.9% Saline Lock 10 Ml Syringe) 10 - 40 ml IV UD PRN PRN Reason: SALINE FLUSH Last Admin: 10/17/20 09:19 Dose: 10 ml Documented by: Discharge Activity: May Not Drive - for 1 week Weight Bearing Status: Weight bearing as tolerated Call your doctor if you observe: Fever of 101 or Higher, Coldness, Increased Pain, Numbness or Tingling, Change in Color, Inability to urinate, Inability to have a bowel movement, Shortness of breath, Dizziness, Fainting spells, Swelling in the ankles, Chest pain, Prolonged hiccoughing, Increased palpitations (irregular heartbeat), Calf discomfort, Uncontrolled pain Home Medications: Medications to take at Discharge Carvedilol [Coreg (Beta Erin)] 12.5 mg PO BID 02/27/15 Aspirin E.C. [Ecotrin] 81 mg PO DAILY #30 tab 10/17/20 Furosemide [Lasix] 40 mg PO DAILY #30 tab 10/17/20 Levofloxacin [Levaquin] 500 mg PO DAILY #4 tab 10/17/20 Losartan Potassium 25 mg PO DAILY #30 tab 10/17/20 Spironolactone 12.5 mg PO DAILY #30 tab 10/17/20 Following Prescriptions Were Given to Patient: Aspirin E.C. [Ecotrin] 81 mg PO DAILY #30 tab Transmission Status: Received by [facility] [id number] Furosemide [Lasix] 40 mg PO DAILY #30 tab Transmission Status: Received by [facility] 181 Levofloxacin [Levaquin] 500 mg PO DAILY #4 tab Transmission Status: Received by [facility] [id number] Losartan Potassium 25 mg PO DAILY #30 tab Transmission Status[id number] Spironolactone 12.5 mg PO DAILY #30 tab Transmission Status: Received by [facility] [id number] Primary Care Physician: Care Physician,No Primary [Primary Care Provider] - Please follow up with your Primary Care Physician in: in 1-2 weeks regarding the titration of Lasix, follow-up BMP Medical Necessity - Tobacco Use Smoking Status: Current every day smoker Meaningful Use Info Meaningful Use Diagnoses (Choose all that apply): CHF - CHF FLAVIO/ARB ordered at discharge?: Yes Documented LVEF (%): 15 Inpatient E&M: 23346 Disch Hosp
[2020-10-17] MEDS: Carvedilol 12.5 MG Tablet PO (10:02)
--- NOTE | 2020-10-17 10:02 | PCM.PN.CARD ---
Subjectve: The patient is feeling better. She has an uneventful cardiac night. Objective: Vital Signs Temp Pulse Resp BP Pulse Ox 97.8 F 89 18 104/66 93 10/17/20 10:00 10/17/20 10:00 10/17/20 10:00 10/17/20 10:00 10/17/20 10:00 Oxygen Flow Rate (L/min) 2 Oxygen Delivery Method Room Air Weight: 116 lb 6.465 oz Body Mass Index (BMI) 23.6 Intake and Output for Last 24 Hours 10/15/20 10/16/20 10/17/20 23:59 23:59 23:59 Intake Total 390 / 390 870 / 870 240 / 240 Output Total 2500 / 2500 3925 / 3925 275 / 275 Balance -2110 / -2110 -3055 / -3055 -35 / -35 Physical Exam GENERAL: Chronically ill-appearing VITAL SIGNS: please see collected data HEENT: Exam is benign. Normocephalic and atraumatic. Oral mucosa is pink and moist. NECK: Jugular venous pulsations are normal. Carotid upstrokes are palpable bilaterally. There is no audible bruit. LUNGS: Clear to Auscultation Bilaterally, No rales, rhonchi or wheezes CARDIAC: Regular rhythm and rate. S1 and S2 with NILESH at apex, no rub, or gallop appreciated. The point of maximal impulse is normal. ABDOMEN: Obese, soft with active bowel sounds. No organomegaly. No audible bruit. Nontender To Palpation EXTREMITIES: Femoral pulses were deferred. No Lower extremities edema. Pulse +2/4 OMM: Patient was examined in supine position; there was no acute tissue changes other stated in Lymphs: No lymphadenopathy Neuro: CN 2-12 are grossly intact, no focal neurological deficit. Psych: No anxiety 10/17/20 06:25: WBC 8.2, RBC 4.54, Hgb 13.7, Hct 41.5, MCV 91.4, MCH 30.2, MCHC 33.0, Plt Count 269, MPV 10.2, Immature Gran % (Auto) 0.200, Neut % (Auto) 64.9, Lymph % (Auto) 22.4, [place] % (Auto) 11.2 H, Eos % (Auto) 0.7, Baso % (Auto) 0.6, Absolute Neuts (auto) 5.3, Nucleated RBC % 0 10/17/20 06:25: Sodium 139, Potassium 3.3 L, Chloride 101, Carbon Dioxide 33.0 H, Anion Gap 5, BUN 17, Creatinine 0.75, Est GFR (MDRD) Af Amer 98, Est GFR (MDRD) Non-Af 81, BUN/Creatinine Ratio 22.7 H, Glucose 99, Calcium 8.5, Total Bilirubin 0.60 10/17/20 06:25: Phosphorus 3.9, Magnesium 2.0 Rhythm: EKG: ECHO: Stress Test: Cardiac Cath: PCI: CT Surgery: Holter monitor: EPS: PPM: CXR: Chest CT Scan: Medical Necessity - Tobacco Use Smoking Status: Current every day smoker Assessment/Plan Impression and recommendation + October 17, 2020 -The patient is clinically improving, the echo was done yesterday which show severely depressed LVEF of 15% with valvular heart disease. This appears to be chronic. We are optimizing the patient heart failure therapy. The patient is to follow-up with her porcelain slusher outpatient for further work-up. -The patient current cardiovascular medication include Carvedilol 12.5 mg twice daily Lasix 40 mg daily Losartan 25 mg daily Spironolactone 12.5 mg daily Aspirin 81 mg daily Nitrostat as needed +Transthoracic Echo Summary: -The LV is dilated. The LV EF is 15%. -There is no gross LV thrombus. -There is severe generalized wall motion hypokinesis. -There is severe diastolic dysfunction. -There is at least moderate to severe mitral regurgitation. The jet appears to be directed centrally -There is moderate Pulmonary Hypertension with estimated RVSP of 55mmHg. -The IVC is dilated and plethoric. -There is no gross PFO or ASD. There is moderate sized left sided pleural effusion. There is pacing lead in the RV There is physiologic pericardial effusion. There is no evidence of cardiac echo tamponade. Frantz Shah, DO FSCAI, FACC, FASE, FASNC + NSTEMI type II ECG showed sinus tachycardia with no evidence of acute ischemia. There is pulmonary pattern concerning for pulmonary disease. Patient has an elevated troponin level along with the tachycardia and initially hypotensive and hypoxic. The D-dimer is elevated. We recommend rule out PE. Will order for CT angio of the chest to rule out PE. Additionally, the patient chest x-ray is concerning for COVID-19 pneumonia. We will continue to monitor closely We will order an echo to evaluate for evidence structure. We recommend continue with the Lovenox full dose. We will going to implement cardiac medical therapy as tolerated. We will start the patient on Lasix 40 mg twice daily. We recommend accurate I/O's. -We will also obtain record for more porcelain slusher when possible. + Acute exacerbation of heart failure with reduced LVEF of 15% -See management above + Moderate to severe mitral regurgitation due to heart failure -The patient is to follow-up with her outpatient porcelain slusher for further evaluation. + Lower extremity discoloration -resolved likely due to Raynaud's phenomenon -The patient reports she does not usually noticed that her feet are purplish. However, she admits that she does only watch it. The patient reports since the admission, her feet some much better in coloration. We suspect that this may be due to renal phenomenon. The patient distal pulses are normal. Hence this is highly unlikely that she has an acute limb ischemia. There is no pain, pallor, petechiae, neurovascular bundle being compromised. Her sensations are intact. We will continue to monitor closely. + Acute respiratory failure -Management above. Primary team is also following. Patient was started on antibiotics. + History of AICD -Patient reports the last time [employer] check her AICD which was about 6 months ago. She was told her it was normal. + Hypertension -Monitor for now
[2020-10-17] MEDS: levoFLOXacin IV 750 MG/150 ML BAG 100 MG IV (10:08)
[2020-10-17] MEDS: Lactated Ringers 500 ML 999 ML IV (13:30)
--- NOTE | 2020-10-19 13:54 | CASEMGMT ---
FRANK CM Discharge Follow-Up Phone Call. Lace: 10 Strata: 3 Discharge Date: 10/17/20 Adm Dx: CHF Exac Attempted discharge f/u phone call. No answer. VM left for pt to return call for any needs/questions/concerns. Phone number provided. Hiram RAMSEY RN CM
== END 2020-10-17 15:26 | disposition home or self-care (01) | DRG 280 ==
LOC: ED 11:23 → ICU 21:55 → PCU 10-18 09:55
PROVIDERS: Admitting Provider Internal Medicine; Emergency Provider Emergency Medicine; Visit Provider Internal Medicine
DX: I11.0 Hypertensive heart disease with heart failure (principal); I21.A1 Myocardial infarction type 2; J96.01 Acute respiratory failure with hypoxia; J96.02 Acute respiratory failure with hypercapnia; J15.9 Unspecified bacterial pneumonia; J44.0 Chronic obstructive pulmonary disease with (acute) lower respiratory infection; I50.43 Acute on chronic combined systolic (congestive) and diastolic (congestive) heart failure; I27.20 Pulmonary hypertension, unspecified; I34.0 Nonrheumatic mitral (valve) insufficiency; I42.8 Other cardiomyopathies; I25.10 Atherosclerotic heart disease of native coronary artery without angina pectoris; I73.00 Raynaud's syndrome without gangrene; I73.9 Peripheral vascular disease, unspecified; Z20.828 Contact with and (suspected) exposure to other viral communicable diseases; F17.210 Nicotine dependence, cigarettes, uncomplicated; Z79.82 Long term (current) use of aspirin; Z79.899 Other long term (current) drug therapy; Z95.810 Presence of automatic (implantable) cardiac defibrillator
CPT/HCPCS: 36415; 36600; 71045; 71275; 80048; 80053; 80061; 82248; 82803; 83605; 83615; 83735; 83880; 84100; 84145; 84443; 84484; 85025; 85379; 85384; 86140; 87040; 87070; 87205; 87426; 87449; 87633; 87635; 93005; 93306; 94002; 94640; 99251; 99285; 99406; J7040; J7120; Q9967; A4216; G0463; J1940; U0002

== ENCOUNTER 2021-01-29 15:06 | Inpatient (IN) | payer MEDICARE, SELFPAY ==
[2020-10-15 15:49] VITALS: BMI 23.6
[2021-01-29] VITALS (24 sets, daily range): BP systolic 114–173; BP diastolic 73–114; PULSE 80–122; RESP 12–29; TEMP 36.1–37.1; O2SAT 76–99; BMI 22.4; BMI 23.3
--- NOTE | 2021-01-29 15:13 | EKG12_ITS ---
Test Reason : SOB, CHF Blood Pressure : / mmHG Vent. Rate : 101 BPM Atrial Rate : 101 BPM P-R Int : 140 ms QRS Dur : 172 ms QT Int : 424 ms P-R-T Axes : 068 -52 103 degrees QTc Int : 549 ms Atrial-sensed ventricular-paced rhythm Biventricular pacemaker detected Abnormal ECG Confirmed by NICHOLAS ALCARAZ, SENG ([id number]), senior technical editor HILL JERNIGAN ([id number]) on 02/02/2021 10:49:04 AM Referred By: MARIS Confirmed By:SENG PETERSON MD
--- NOTE | 2021-01-29 15:14 | RAD_ITS ---
STUDY: X-RAY CHEST REASON FOR EXAM: Female, 70 years old. dyspnea TECHNIQUE: AP COMPARISON: 10/15/2020 FINDINGS: EKG leads project over the chest. Three lead cardiac conduction device is seen via the left subclavian vein with lead tips projecting over the right atrium and right ventricle, respectively, with left atrial lead projecting over the left atrium/posterior cardiac border. Mild central pulmonary vascular congestion and interstitial thickenings along the periphery and in the lung bases suggesting edema, less severe as compared to the prior study. Trace bilateral pleural fluid. There is moderate cardiac enlargement. Normal mediastinum and sp. There is atherosclerotic calcification of the aortic arch with tortuosity. There is demineralization of the osseous structures. Normal visualized ribs, clavicles, and shoulders. There is no demonstrated abnormality of the visualized soft tissue structures of the upper abdomen. RAD/Chest 1 View (Portable) IMPRESSION: 1. Mild CHF/edema with trace pleural fluid but improved since 10/10/2020. Electronically Signed: Timo Peterson MD (Brooks) at 15:41 EDT , Service support ,
--- NOTE | 2021-01-29 15:16 | ED.DCSUM_ITS ---
- ER Visit Summary Date of Service: 01/29/21 Chief Complaint: [Shortness of breath] History of Present Illness: The patient is a 70 F [presents to the emergency department with increasing shortness of breath since last evening. Patient became more severely dyspneic today. Patient called EMS. On EMS arrival patient pulse ox in the 80s and she was in distress. Patient was placed on nonrebreather mask and given a DuoNeb aerosol. Patient has history of CHF. Patient is a smoker. She denies history of COPD or emphysema. Patient is not on home O2. Patient denies recent fever or cough. No Covid exposures known. Patient denies chest pain. Patient denies recent travel or surgery.] Physical Examination: [HEENT-PERRLA, EOMI. Cranial nerves II through XII grossly intact. TMs clear. Mucous membranes moist. No adenopathy. Patient is diaphoretic. Cardiovascular-regular rate and rhythm without murmur or ectopy Lungs-diminished in both bases with expiratory wheezes throughout. Patient is tachypneic. Mild accessory muscle use noted. Patient has conversational dyspnea. Abdomen-normoactive bowel sounds, soft, nontender, no rebound or rigidity, no peritoneal signs. Extremities-intact ?4, normal range of motion, normal pulses, atraumatic. No significant edema noted.] Test Results: [EKG obtained shows atrially sensed and ventricularly paced rhythm when compared with prior EKG from October 15, 2020 no significant changes noted. CBC with differential showed a white count of 8.3, hemoglobin 15.7, hematocrit 50.7, platelets 221. Chemistries unremarkable. Troponin was 0.029. BNP was greater than 5000. D-dimer was 1.86. Chest x-ray 1 view obtained interpreted by myself as mild cardiomegaly and CHF with pulmonary congestion and small right pleural effusion. Radiology was in agreement. CTA of the chest read by radiology as no evidence for PE and consistent with CHF and small bilateral pleural effusions,.] Emergency Department Course and Treatment: [The line established on arrival. Kemar bejarano was medicated with DuoNeb aerosols as well as albuterol aerosols. She was given Solu-Medrol 125 mg IV. Patient was given Lasix 80 mg IV as well as morphine 4 mg IV and Zofran 4 mg IV. Patient was given an inch of Nitropaste to the anterior chest wall. Patient continued to complain of feeling dyspneic and was started initially on CPAP which she did not tolerate well in the not feel like she got much improvement. Patient was then changed to BiPAP.] Treatment Plan: [Admit] Disposition: [Admit] Impression: [Dyspnea CHF exacerbation] This note was generated with [employer] dictation software. It may contain incorrect words, spelling, and punctuation that were not noted in review of the chart prior to signing ED Disposition - Plan for ED Patient: Referrals: Care Physician,No Primary [Primary Care Provider] -
[2021-01-29] MEDS: MethylPREDNISolone 125 MG/2 ML Vial IV (15:25)
[2021-01-29] MEDS: Ipratropium/Albuterol Sulfate 3 ML AMPUL.NEB INHALATION ×2 (15:25→19:08)
[2021-01-29] MEDS: Morphine 4 MG/ML Syringe IV (15:38)
[2021-01-29] MEDS: Furosemide 100 MG/10 ML Vial 80 MG IV (15:38)
[2021-01-29] MEDS: Nitroglycerin Oint 1 INCH PACKET TD (15:38)
[2021-01-29 15:43] LABS: Absolute Lymphocyte Count 2.25 X10^3/uL (0.83-4.51); Absolute Neutrophil Count 5.4 X10^3/uL (2.0-7.7); Basophil# 0.09 X10^3/uL; Basophil% 1.1 % (0-1); Eosinophil# 0.16 X10^3/uL; Eosinophils% 1.9 % (0-5); Hematocrit 50.7 % (37-47); Hemoglobin 15.7 g/dL (12.0-15.0); Lymphocyte # 2.25 X10^3/ul (4.0); Lymphocyte % 27.1 % (19-41); Mean Corpuscular Hgb 30.3 pg (27.0-32.0); Mean Corpuscular Volume 97.7 fL (81-99); Mean Platelet Vol. 11.3 fl (6.2-12.0); Monocyte# 0.33 X10^3/uL; NRBC Flagged by Analyzer 0 % (0-5); Neutrophil # 5.44 X10^3/uL (2.7-7.7); Neutrophil % 65.5 % (47-70); Platelet Count 221 K/mm3 (150-450); RBC Distribution Width CV 15.9 % (11.6-14.6); RBC Distribution Width SD 58.3 fl (35.1-43.9); Red Blood Count 5.19 M/mm3 (4.2-5.4); White Blood Count 8.3 K/mm3 (4.4-11.0)
[2021-01-29] MEDS: Ondansetron 4 MG/2 ML Vial IV ×2 (15:52→20:13)
[2021-01-29 16:00] LABS: D-Dimer Quantitative (DVT/PE) 1.86 FEU/ug/m (0.27-0.49)
[2021-01-29 16:01] LABS: Anion Gap 11 (5-15); BUN 12 mg/dL (7-18); BUN/Creat Ratio 12.1 RATIO (10-20); Calcium,Total 8.7 mg/dL (8.5-10.1); Chloride 103 mmol/L (98-107); Creatinine, Serum 0.99 mg/dL (0.55-1.02); EST Glomerular Filtration Rate 59 mL/min (>60); Est Glom Filt Rate - Afr Amer 71 mL/min (>60); Glucose 310 mg/dL (74-106); Potassium 3.5 mmol/L (3.5-5.1); Sodium Level 138 mmol/L (136-145)
[2021-01-29 16:07] LABS: BNP,B-Type NATRIURETIC PEPTIDE > 5000.0 pg/mL (0-100)
--- NOTE | 2021-01-29 16:08 | CT_ITS ---
STUDY: CTA CHEST REASON FOR EXAM: Female, 70 years old. dyspnea RADIATION DOSAGE (If Supplied By Facility): CTDIvol = ( 6.24 ) mGy, DLP = ( 214.09 ) mGycm TECHNIQUE: The examination was performed with the intravenous administration of IV 75mL Isovue-370. Post-processing of the angiographic images was performed, with multiplanar reformation and 3D reconstruction. Individualized dose optimization techniques were used for this CT. COMPARISON: 10/15/2020 FINDINGS: Normal enhancement of the main pulmonary artery and right and left pulmonary arteries. Normal enhancement of the bilateral peripheral pulmonary arteries. There is no demonstrated pulmonary embolism. Normal thoracic aorta and visualized great vessels. There is no demonstrated aortic dissection. There is cardiomegaly with left ventricular enlargement. Cardiac conduction device is stable. No pericardial effusion detected. Normal mediastinum. Normal hilar regions. There is peribronchial thickening. There are mucoid secretions in the dependent portion of the lower trachea. The lungs are under expanded. Multilobar interstitial thickening and groundglass opacities but no dense airspace consolidation. Small right and trace left pleural effusions. Normal chest wall structures. There are degenerative changes of thoracic spine. Normal visualized upper abdomen. CT/CTA Chest W/WO Contrast IMPRESSION: 1. No central or segmental pulmonary embolism. 2. CHF with interstitial edema, peribronchial thickening and right larger than left pleural effusions. Pleural effusions are decreased as compared to prior study. Electronically Signed: Timo Peterson MD (Brooks) at 16:44 EDT , Service support ,
--- NOTE | 2021-01-29 16:54 | HP.PCM_ITS ---
Problem List (1) Acute respiratory failure with hypoxia and hypercapnia Status: Acute (2) Hypertension Status: Chronic (3) Acute exacerbation of CHF (congestive heart failure) Status: Acute History of Present Illness Date of Admission: 01/29/21 Chief Complaint: Shortness of breath. The patient is a 70 year old F who presents emergency room due to shortness of breath. Patient started with fairly sudden onset beginning last night however worsening throughout today. She denies cough, fever, chills. Denies weight gain. Denies increase in lower extremity swelling. She was discharged in September 2020 following management of acute CHF and respiratory failure. She states she has not been taking previously prescribed medications including losartan and Lasix as she has a lot of symptoms with them. Patient has BiPAP on during exam and appears dyspneic. She reports anxiety and is pulling mask away from her face frequently. She does not wear oxygen at home. She has a past medical history of chronic heart failure with reduced ejection fraction (15%) AICD in place, presumed COPD with extensive tobacco use history, hypertension. Past Medical History Past Medical History (Chronic Problems): Chronic Problems Hypertension (Chronic) Allergies Sulfa (Sulfonamide Antibiotics) Allergy (Verified 01/29/21 15:12) Rash amoxicillin Adverse Reaction (Verified 01/29/21 15:12) Other Home Medications: Ambulatory Orders Medication Instructions Recorded Aspirin E.C. 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 Review of Systems Constitutional: Denies: Chills, Fever, Weight Change HEENT: Denies: Head Aches, Sinus Congestion, Sinus Drainage Cardiovascular: Reports: Edema - Mild lower extremity. Denies: Chest Pain, Palpitations, Syncope Respiratory: Reports: Shortness of Breath, Wheezing. Denies: Cough, Sputum production Gastrointestinal: Denies: Abdominal Pain, Nausea, Vomiting Genitourinary: Denies: Dysuria Musculoskeletal: Denies: Joint Pain, Joint Tenderness Skin: Denies: Rash, Wounds Neurological: Denies: Numbness, Tingling, Focal weakness Psychiatric: Denies: Anxiety, Depression, Homicidal Ideations, Suicidal Ideations Hematologic/ Lymphatic: Denies: Easy Bruising, Easy Bleeding VTE Information - Inpt Only VTE Present on Admission: No VTE Mechan Device Prophylaxis: None VTE Pharm Prophylaxis ordered?: Yes Patient Problems: Active and Suspected Problems Acute exacerbation of CHF (congestive heart failure) (Acute) Acute respiratory failure with hypoxia and hypercapnia (Acute) - Physical Exam Vitals/I&O's: Vital Signs Temp Pulse Resp BP Pulse Ox 97.0 F L 116 H 28 H 132/90 H 96 01/29/21 16:12 01/29/21 16:12 01/29/21 16:12 01/29/21 16:12 01/29/21 16:12 Oxygen Delivery Method Non-Rebreather Weight: 119 lb 0.794 oz Body Mass Index (BMI) 22.4 General: Alert, Oriented x3, Cooperative, - - On BiPAP, appears dyspneic, anxious HEENT: Atraumatic, PERRLA, EOMI, Normocephalic Neck: Supple, No JVD, Negative Carotid Bruits Lungs: Diminished, Wheezes Cardiovascular: Regular rate, No murmurs Abdomen: Bowel Sounds Present, Soft, Non Tender, Non-Distended Extremities: No clubbing, No cyanosis, No edema, Capillary Refill Less than 3 Seconds Skin: No rashes, No breakdown Musculoskeletal: No Tenderness to Palpation of Joints or Extremities, Cachexia, Muscle Wasting Neurological: Cranial nerves II-XII grossly intact, Neuro grossly intact Psych/Mental Status: Anxious Microbiology Past 72 Hours 01/29/21 15:30 Mucosa - Nose SARS-CoV-2 Antigen (Rapid) - Final Laboratory Results 01/29/21 15:25: WBC 8.3, RBC 5.19, Hgb 15.7 H, Hct 50.7 H, MCV 97.7, MCH 30.3, MCHC 31.0 L, RDW Std Deviation 58.3 H, RDW Coeff of Toby 15.9 H, Plt Count 221, MPV 11.3, Immature Gran % (Auto) 0.400, Neut % (Auto) 65.5, Lymph % (Auto) 27.1, [place] % (Auto) 4.0, Eos % (Auto) 1.9, Baso % (Auto) 1.1 H, Absolute Neuts (auto) 5.4, Absolute Lymphs (auto) 2.25, Nucleated RBC % 0 01/29/21 15:25: D-Dimer Quant (PE/DVT) 1.86 H* 01/29/21 15:25: Sodium 138, Potassium 3.5, Chloride 103, Carbon Dioxide 24.0, Anion Gap 11, BUN 12, Creatinine 0.99, Estim Creat Clear Calc 39.90, Est GFR (MDRD) Af Amer 71, Est GFR (MDRD) Non-Af 59 L, BUN/Creatinine Ratio 12.1, Glucose 310 H, Calcium 8.7, Troponin I 0.029 01/29/21 15:25: B-Natriuretic Peptide > 5000.0 H Assessment/Plan All Active Problems Acute exacerbation of CHF (congestive heart failure) (Acute) Acute respiratory failure with hypoxia and hypercapnia (Acute) 1. Acute hypoxic respiratory failure secondary to acute on chronic heart failure with reduced ejection fraction and exacerbation of COPD-continue BiPAP as tolerated, supplement oxygen to maintain O2 at above 90%. Walking pulse ox prior to discharge. 2. Acute on chronic combined heart failure with reduced ejection fraction and ev idence of severe diastolic dysfunction-echocardiogram demonstrates an EF of 15%, severe diastolic dysfunction, moderate to severe mitral regurgitation, moderate pulmonary hypertension. AICD in place. Chest x-ray and CTA consistent with CHF. Pleural effusions improved from prior. BNP greater than 5000. IV Lasix. Strict I&O. Daily weight. Tyler wraps bilateral lower extremities. 3. COPD exacerbation-IV Solu-Medrol. Albuterol DuoNeb aerosols. 4. Hypertension-stable, continue carvedilol. Has not been taking previously prescribed losartan. As needed hydralazine. 5. Tobacco use- reports 7 cigarettes per day. Declines nicotine replacement patch. 6. Elevated glucose-check hemoglobin A1c. DVT prophylaxis- Lovenox sc This patient was seen by KEREN Abernathy under the supervision of Dr. Wang.
[2021-01-29] MEDS: Albuterol 2.5 MG/3 ML VIAL.NEB. INHALATION ×2 (16:56→17:06)
--- NOTE | 2021-01-29 17:40 | ED.RN ---
Report called to [facility]; ICU will call when bed clean and ICU ready for pt.
[2021-01-29 19:13] LABS: Magnesium 2.5 mg/dL (1.6-2.6)
[2021-01-29 20:12] LABS: Hemoglobin A1c 5.8 % (3.8-5.6)
[2021-01-29] MEDS: 0.9% Saline Lock 10 ML Syringe IV ×2 (20:13→21:43)
[2021-01-29] MEDS: Furosemide 40 MG/4 ML Vial IV (21:43)
[2021-01-29] MEDS: Carvedilol 6.25 MG Tablet PO (21:43)
[2021-01-29 21:55] LABS: Bedside Glucose 144 mg/dL (70-110)
[2021-01-30] VITALS (26 sets, daily range): BP systolic 98–128; BP diastolic 59–79; PULSE 75–96; RESP 12–21; TEMP 36.6–36.9; O2SAT 95–98
[2021-01-30 04:50] LABS: Absolute Lymphocyte Count 0.65 X10^3/uL (0.83-4.51); Absolute Neutrophil Count 9.5 X10^3/uL (2.0-7.7); Basophil# 0.01 X10^3/uL; Basophil% 0.1 % (0-1); Hematocrit 44.6 % (37-47); Hemoglobin 14.6 g/dL (12.0-15.0); Lymphocyte # 0.65 X10^3/ul (4.0); Lymphocyte % 6.2 % (19-41); Mean Corp Hgb Conc 32.7 g/dL (32-36); Mean Corpuscular Hgb 30.3 pg (27.0-32.0); Mean Corpuscular Volume 92.5 fL (81-99); Mean Platelet Vol. 10.5 fl (6.2-12.0); Monocyte# 0.34 X10^3/uL; Monocyte% 3.2 % (0-10); NRBC Flagged by Analyzer 0 % (0-5); Neutrophil # 9.49 X10^3/uL (2.7-7.7); Neutrophil % 90.2 % (47-70); Platelet Count 211 K/mm3 (150-450); RBC Distribution Width CV 15.4 % (11.6-14.6); RBC Distribution Width SD 52.9 fl (35.1-43.9); Red Blood Count 4.82 M/mm3 (4.2-5.4); White Blood Count 10.5 K/mm3 (4.4-11.0)
[2021-01-30 05:20] LABS: ALB/GLOB Ratio 1.1 RATIO (0.9-2.4); AST(SGOT) 49 U/L (15-37); Alanine Aminotransfer ALT/SGPT 85 U/L (13-56); Albumin, Serum 3.6 g/dL (3.2-5.0); Alkaline Phosphatase 142 U/L (45-117); Anion Gap 5 (5-15); BUN 13 mg/dL (7-18); BUN/Creat Ratio 17.8 RATIO (10-20); Calcium,Total 8.5 mg/dL (8.5-10.1); Chloride 101 mmol/L (98-107); Cholesterol 191 mg/dL (200); Creatinine, Serum 0.73 mg/dL (0.55-1.02); EST Glomerular Filtration Rate 83 mL/min (>60); Est Glom Filt Rate - Afr Amer 101 mL/min (>60); Globulin 3.2 g/dL (2.2-4.2); Glucose 116 mg/dL (74-106); High Density Lipoprotein 66 mg/dL; Potassium 3.7 mmol/L (3.5-5.1); Protein, Total 6.8 g/dL (6.4-8.2); Sodium Level 139 mmol/L (136-145); Thyroid Stim Hormone (TSH) 0.34 uIU/mL (0.358-3.74); Triglycerides 59 mg/dL; Very Low Density Lipoprotein 12 mg/dL (5-40)
--- NOTE | 2021-01-30 05:50 | PCM.CON.CC ---
Reason for Consult Date of Consultation: 01/30/21 Reason for Consultation: Acute respiratory failure History of Present Illness: The patient is a 70-year-old female, with a history as outlined below, who presented to the emergency department on January 29 with complaints of worsening shortness of breath. The patient does have a cardiac history and follows with a assembler deck and hull in [place]. She is a current smoker of 0.5 packs of cigarettes per day, but does not utilize any inhalers or supplemental oxygen at her baseline. Her last surface echocardiogram from September 2020 revealed an ejection fraction of 15%. In speaking with the patient, it sounds as if she is not regularly utilizing her diuretic therapy. She does report that she typically waits until she has swelling in her legs to take her Lasix. She does have a history of anxiety and recurrent panic attacks as well. On presentation to the emergency department, the patient was noted to be afebrile but was tachycardic and tachypneic. She was also hypoxemic requiring a nonrebreather initially. Laboratory evaluation revealed a normal white blood cell count. D-dimer was elevated to 1.86. Creatinine was within normal limits. Troponin was negative. BNP was greater than 5000. Procalcitonin was noted to be 0.10. CTA chest showed no evidence for pulmonary embolism. There was interstitial thickening and groundglass opacities bilaterally. Pleural effusions were also noted. The patient received aerosol treatments, IV steroids and IV Lasix. She was placed on BiPAP and admitted to the medical intensive care unit for further management. As of this morning, the patient has been weaned to nasal cannula supplemental oxygen at 4 L/min. She does report significant improvement in her breathing quality overnight. Past Medical History Past Medical History (Chronic Problems): Chronic Problems Hypertension (Chronic) Allergies Sulfa (Sulfonamide Antibiotics) Allergy (Verified 01/29/21 15:12) Rash amoxicillin Adverse Reaction (Verified 01/29/21 15:12) Other Home Medications: Ambulatory Orders Medication Instructions Recorded Aspirin E.C. 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 Review of Systems Constitutional: Denies: Chills, Fever Eyes: Denies: Blurred vision, Double vision HEENT: Denies: Head Aches, Sinus Congestion, Sinus Drainage Cardiovascular: Denies: Chest Pain, Palpitations Respiratory: Reports: Shortness of Breath Gastrointestinal: Denies: Abdominal Pain, Nausea, Vomiting Genitourinary: Denies: Dysuria Musculoskeletal: Denies: Joint Pain, Joint Tenderness Skin: Denies: Rash, Wounds Neurological: Denies: Numbness, Tingling, Focal weakness Psychiatric: Reports: Anxiety Hematologic/ Lymphatic: Denies: Easy Bruising, Easy Bleeding Patient Problems: Active and Suspected Problems Acute exacerbation of CHF (congestive heart failure) (Acute) Acute respiratory failure with hypoxia and hypercapnia (Acute) Objective: The patient's most recent lab work, culture data and imaging studies have all been personally reviewed. Rapid coronavirus antigen testing was negative. Strep and urine Legionella antigens were negative. Respiratory viral panel was negative. Blood cultures are pending. - Physical Exam Vitals/I&O's: Vital Signs Temp Pulse Resp BP Pulse Ox 98.1 F 76 15 105/72 96 01/30/21 04:27 01/30/21 04:27 01/30/21 04:27 01/30/21 04:27 01/30/21 04:27 Oxygen Flow Rate (L/min) 4 Oxygen Delivery Method Bi-pap Weight: 113 lb 12.136 oz Body Mass Index (BMI) 23.3 Intake and Output for Last 24 Hours 01/28/21 01/29/21 01/30/21 23:59 23:59 23:59 Intake Total 600 / 600 200 / 200 Output Total 2500 / 2500 500 / 500 Balance -1900 / -1900 -300 / -300 General: Alert, Cooperative, No apparent distress HEENT: Atraumatic, PERRLA, Normocephalic Oral: No Gingival or Mucosal Lesions/ Ulcerations Neck: Supple, No Nodes, Trachea Midline Lungs: No rhonchi, No wheeze, Diminished, Rales Cardiovascular: Regular rate, Regular Rhythm Abdomen: Bowel Sounds Present, Soft, Non Tender Extremities: No clubbing, No cyanosis, No edema Skin: No breakdown Musculoskeletal: No Tenderness to Palpation of Joints or Extremities Lymphatic: No Cervical, Supraclavicular, or Inguinal Adenopathy Neurological: Cranial nerves II-XII grossly intact, Neuro grossly intact Psych/Mental Status: Anxious Labs (Last 48 Hours) 01/29/21 01/29/21 01/29/21 15:25 15:25 15:25 WBC 8.3 RBC 5.19 Hgb 15.7 H Hct 50.7 H MCV 97.7 MCH 30.3 MCHC 31.0 L RDW Std Deviation 58.3 H RDW Coeff of Toby 15.9 H Plt Count 221 MPV 11.3 Immature Gran % (Auto) 0.400 Neut % (Auto) 65.5 Lymph % (Auto) 27.1 [place] % (Auto) 4.0 Eos % (Auto) 1.9 Baso % (Auto) 1.1 H Absolute Neuts (auto) 5.4 Absolute Lymphs (auto) 2.25 Nucleated RBC % 0 D-Dimer Quant (PE/DVT) 1.86 H* Sodium 138 Potassium 3.5 Chloride 103 Carbon Dioxide 24.0 Anion Gap 11 BUN 12 Creatinine 0.99 Estim Creat Clear Calc 39.90 Est GFR (MDRD) Af Amer 71 Est GFR (MDRD) Non-Af 59 L BUN/Creatinine Ratio 12.1 Glucose 310 H Hemoglobin A1c Calcium 8.7 Magnesium Total Bilirubin AST ALT Alkaline Phosphatase Troponin I 0.029 B-Natriuretic Peptide Total Protein Albumin Globulin Albumin/Globulin Ratio Triglycerides Cholesterol LDL Cholesterol VLDL Cholesterol HDL Cholesterol Procalcitonin TSH POC Glucose 01/29/21 01/29/21 01/29/21 15:25 15:25 15:25 WBC RBC Hgb Hct MCV MCH MCHC RDW Std Deviation RDW Coeff of Toby Plt Count MPV Immature Gran % (Auto) Neut % (Auto) Lymph % (Auto) [place] % (Auto) Eos % (Auto) Baso % (Auto) Absolute Neuts (auto) Absolute Lymphs (auto) Nucleated RBC % D-Dimer Quant (PE/DVT) Sodium Potassium Chloride Carbon Dioxide Anion Gap BUN Creatinine Estim Creat Clear Calc Est GFR (MDRD) Af Amer Est GFR (MDRD) Non-Af BUN/Creatinine Ratio Glucose Hemoglobin A1c 5.8 H Calcium Magnesium 2.5 Total Bilirubin AST ALT Alkaline Phosphatase Troponin I B-Natriuretic Peptide > 5000.0 H Total Protein Albumin Globulin Albumin/Globulin Ratio Triglycerides Cholesterol LDL Cholesterol VLDL Cholesterol HDL Cholesterol Procalcitonin TSH POC Glucose 01/29/21 01/29/21 01/29/21 19:05 20:05 21:41 WBC RBC Hgb Hct MCV MCH MCHC RDW Std Deviation RDW Coeff of Toby Plt Count MPV Immature Gran % (Auto) Neut % (Auto) Lymph % (Auto) [place] % (Auto) Eos % (Auto) Baso % (Auto) Absolute Neuts (auto) Absolute Lymphs (auto) Nucleated RBC % D-Dimer Quant (PE/DVT) Sodium Potassium Chloride Carbon Dioxide Anion Gap BUN Creatinine Estim Creat Clear Calc Est GFR (MDRD) Af Amer Est GFR (MDRD) Non-Af BUN/Creatinine Ratio Glucose Hemoglobin A1c Calcium Magnesium Total Bilirubin AST ALT Alkaline Phosphatase Troponin I 0.799 H* B-Natriuretic Peptide Total Protein Albumin Globulin Albumin/Globulin Ratio Triglycerides Cholesterol LDL Cholesterol VLDL Cholesterol HDL Cholesterol Procalcitonin 0.10 H TSH POC Glucose 144 H 01/29/21 01/30/21 01/30/21 23:15 04:40 04:40 WBC 10.5 RBC 4.82 Hgb 14.6 Hct 44.6 MCV 92.5 D MCH 30.3 MCHC 32.7 D RDW Std Deviation 52.9 H RDW Coeff of Toby 15.4 H Plt Count 211 MPV 10.5 Immature Gran % (Auto) 0.300 Neut % (Auto) 90.2 H Lymph % (Auto) 6.2 L [place] % (Auto) 3.2 Eos % (Auto) 0.0 Baso % (Auto) 0.1 Absolute Neuts (auto) 9.5 H Absolute Lymphs (auto) 0.65 L Nucleated RBC % 0 D-Dimer Quant (PE/DVT) Sodium 139 Potassium 3.7 Chloride 101 Carbon Dioxide 33.0 H Anion Gap 5 BUN 13 Creatinine 0.73 Estim Creat Clear Calc 39.50 Est GFR (MDRD) Af Amer 101 Est GFR (MDRD) Non-Af 83 BUN/Creatinine Ratio 17.8 Glucose 116 H Hemoglobin A1c Calcium 8.5 Magnesium Total Bilirubin 0.80 AST 49 H ALT 85 H Alkaline Phosphatase 142 H Troponin I 1.150 H* B-Natriuretic Peptide Total Protein 6.8 Albumin 3.6 Globulin 3.2 Albumin/Globulin Ratio 1.1 Triglycerides 59 Cholesterol 191 LDL Cholesterol 113 VLDL Cholesterol 12 HDL Cholesterol 66 Procalcitonin TSH 0.34 L POC Glucose 01/30/21 04:40 WBC RBC Hgb Hct MCV MCH MCHC RDW Std Deviation RDW Coeff of Toby Plt Count MPV Immature Gran % (Auto) Neut % (Auto) Lymph % (Auto) [place] % (Auto) Eos % (Auto) Baso % (Auto) Absolute Neuts (auto) Absolute Lymphs (auto) Nucleated RBC % D-Dimer Quant (PE/DVT) Sodium Potassium Chloride Carbon Dioxide Anion Gap BUN Creatinine Estim Creat Clear Calc Est GFR (MDRD) Af Amer Est GFR (MDRD) Non-Af BUN/Creatinine Ratio Glucose Hemoglobin A1c Calcium Magnesium Total Bilirubin AST ALT Alkaline Phosphatase Troponin I 0.994 H* B-Natriuretic Peptide Total Protein Albumin Globulin Albumin/Globulin Ratio Triglycerides Cholesterol LDL Cholesterol VLDL Cholesterol HDL Cholesterol Procalcitonin TSH POC Glucose Microbiology 01/29/21 19:15 Mucosa - Nasopharyngeal Respiratory Panel (PCR) - Final 01/29/21 19:00 Urine Catheter - Barraza Legionella Antigen - Final 01/29/21 19:00 Urine Catheter - Barraza Streptococcus pneumoniae Antigen (M - Final 01/29/21 15:30 Mucosa - Nose SARS-CoV-2 Antigen (Rapid) - Final Clinical Impression(s) from Imaging Studies Chest X-Ray 01/29/21 15:14 IMPRESSION: 1. Mild CHF/edema with trace pleural fluid but improved since 10/10/2020. Electronically Signed: Timo Peterson MD ([place]) at 15:41 EDT , Service support , Chest CTA 01/29/21 16:08 IMPRESSION: 1. No central or segmental pulmonary embolism. 2. CHF with interstitial edema, peribronchial thickening and right larger than left pleural effusions. Pleural effusions are decreased as compared to prior study. Electronically Signed: Timo Peterson MD ([place]) at 16:44 EDT , Service support , Current Medications Acetaminophen (Acetaminophen 325 Mg Tablet) 650 mg PO Q6H PRN PRN PRN Reason: Pain Score 1-10/Temp > 100.7 F Al Hydroxide/Mg Hydroxide (Mag Hydrox/Al Hydrox/Simeth 30 Ml Udc) 30 ml PO Q6H PRN PRN PRN Reason: Gastric Burning Albuterol Sulfate (Albuterol 2.5 Mg/3 Ml Vial.Neb.) 2.5 mg INHALATION Q2H PRN PRN PRN Reason: Dyspnea, wheezing Albuterol/Ipratropium (Ipratropium/Albuterol Sulfate 3 Ml Ampul.Neb) 3 ml INHALATION Q4HWA.RT [facility] Last Admin: 01/29/21 19:08 Dose: 3 ml Documented by: Aspirin (Aspirin E.C. 81 Mg Tablet) [facility] Carvedilol (Carvedilol 6.25 Mg Tablet) 6.25 mg PO BID [facility] Last Admin: 01/29/21 21:43 Dose: 6.25 mg Documented by: Enoxaparin Sodium (Enoxaparin 40 Mg/0.4 Ml Syringe) 40 mg SC DAILY [facility] Famotidine (Famotidine 20 Mg Tablet) 20 mg PO BID [facility] Last Admin: 01/29/21 22:29 Dose: Not Given Documented by: Furosemide (Furosemide 40 Mg/4 Ml Vial) 40 mg IV BID@1000,1800 [facility] Last Admin: 01/29/21 21:43 Dose: 40 mg Documented by: Guaifenesin (Guaifenesin 10 Ml Udc (200mg/10ml)) 10 ml PO Q4H PRN PRN PRN Reason: COUGH Hydralazine HCl (Hydralazine 20 Mg/Ml Vial) 10 mg IV Q4H PRN PRN PRN Reason: SBP > 160 Sodium Chloride () 250 mls @ 15 mls/hr IV .[id number] PRN PRN Reason: Saline Flush Sodium Chloride () 250 mls @ 15 mls/hr IV .[id number] PRN PRN Reason: Additional IVPB Infusion Insulin Human Lispro (Insulin Lispro 100 Unit/Ml Insuln.Pen) 0 unit SC ACHS [facility]; Protocol Last Admin: 01/29/21 22:29 Dose: Not Given Documented by: Lorazepam (Lorazepam 2 Mg/Ml Syringe) 0.5 mg IV Q6H PRN PRN PRN Reason: anxiety with BIPAP Magnesium Hydroxide (Magnesium Hydroxide 30 Ml Udc) 30 ml PO DAILY PRN PRN PRN Reason: Constipation Melatonin (Melatonin 3 Mg Tablet) 3 mg PO QHS PRN PRN PRN Reason: INSOMNIA Methylprednisolone (Methylprednisolone 40 Mg/Ml Vial) 40 mg IV Q8 [facility] Last Admin: 01/29/21 21:43 Dose: 40 mg Documented by: Morphine Sulfate (Morphine 4 Mg/Ml Syringe) 4 mg IV Q3H PRN PRN PRN Reason: Pain Score 6-10 Nitroglycerin (Nitroglycerin (Inpatient Use) 0.4 Mg Tab.Subl) 0.4 mg SL Q5M PRN PRN Reason: CARDIAC/CHEST PAIN Ondansetron HCl (Ondansetron 4 Mg/2 Ml Vial) 4 mg IV Q8H PRN PRN PRN Reason: NAUSEA/VOMITING Last Admin: 01/29/21 20:13 Dose: 4 mg Documented by: Prochlorperazine Edisylate (Prochlorperazine 10 Mg/2 Ml Vial) 5 mg IV Q4H PRN PRN PRN Reason: Breakthrough Nausea/Vomiting Psyllium Hydrophilic Mucilloid (Psyllium 1 Packet) 1 packet PO DAILY PRN PRN PRN Reason: Constipation Senna/Docusate Sodium (Senna/Docusate Sodium 1 Tablet) 2 tablet PO BID PRN PRN Reason: Constipation Sodium Chloride (0.9% Saline Lock 10 Ml Syringe) 10 - 40 ml IV UD PRN PRN Reason: SALINE FLUSH Last Admin: 01/29/21 21:43 Dose: 10 ml Documented by: Throat Lozenges (Benzocaine/Menthol 1 Lozenge) 1 lozenge MUCOUS MEM Q2H PRN PRN PRN Reason: SORE THROAT Assessment/Plan Active and Suspected Problems Acute exacerbation of CHF (congestive heart failure) (Acute) Acute respiratory failure with hypoxia and hypercapnia (Acute) RECOMMENDATIONS: 1. Wean supplemental oxygen to maintain saturations at or above 90%. 2. Continue IV diuretic therapy as tolerated by hemodynamics and renal function. 3. Continue bronchodilator therapy. 4. Discontinue IV steroids. 5. Encourage incentive spirometer use and mobilize patient as tolerated. 6. The patient is medically stable for transfer out of the intensive care unit. IMPRESSIONS: 1. Acute hypoxemic respiratory failure Clinical suspicion for decompensated heart failure as underlying etiology. The patient has questionable compliance with her outpatient diuretic regimen. She is currently followed by a assembler deck and hull in [place]. The patient was initially admitted to the ICU on BiPAP and IV diuretic therapy. She improved clinically in a short amount of time. She has been weaned to supplemental oxygen via nasal cannula and will be continued on IV diuretic therapy as tolerated by hemodynamics and renal function. Goal to wean oxygen to maintain saturations at or above 90%. While the patient does have a smoking history, she has never been formally evaluated from a pulmonary perspective with PFTs. However, it is reasonable to continue bronchodilator therapy while admitted to the hospital. 2. History of tobacco dependency I personally spent 4 minutes discussing the deleterious effects of continued tobacco use with the patient, including modalities which could be utilized to achieve a smoke-free lifestyle. Although there is documentation on the admitting H&P that the patient has COPD, this is in fact not the case that she has never been formally evaluated with PFTs. While she does have a smoking history, she does not utilize supplemental oxygen or inhalers at her baseline. For now, she will be continued on bronchodilator therapy. However, IV steroids can be discontinued from my perspective. If the patient wishes, she can establish care in the pulmonary medicine clinic after discharge, at which time, baseline PFTs can be obtained. 3. History of anxiety/panic attacks/hypertension Complicates care, management, recovery and prognosis. Continue home medications as indicated. This note was generated with [employer] dictation software. It may contain incorrect words, spelling, and punctuation that were not noted in checking the note before signing. Inpatient E&M: 40559 Init Hosp L3 - Behavior Interventions Behavior Intervention: 95856 Smoking Cessation 3-10 min
[2021-01-30] MEDS: 0.9% Saline Lock 10 ML Syringe IV ×2 (05:54→17:25)
--- NOTE | 2021-01-30 05:55 | EKG12_ITS ---
Test Reason : AM EKG Blood Pressure : / mmHG Vent. Rate : 079 BPM Atrial Rate : 079 BPM P-R Int : 138 ms QRS Dur : 170 ms QT Int : 476 ms P-R-T Axes : 055 -46 092 degrees QTc Int : 545 ms Electronic ventricular pacemaker Confirmed by BRAEDEN ALCARAZ, MLI ([id number]), assistant editor HILL JERNIGAN ([id number]) on 02/03/2021 11:26:44 AM Referred By: RISHI Confirmed By:MIL DERAS MD
[2021-01-30] MEDS: Ipratropium/Albuterol Sulfate 3 ML AMPUL.NEB INHALATION ×4 (06:56→20:12)
--- NOTE | 2021-01-30 07:36 | PN_ITS ---
Patient Problems: Active and Suspected Problems Acute exacerbation of CHF (congestive heart failure) (Acute) Acute respiratory failure with hypoxia and hypercapnia (Acute) Reason for Visit: Follow-up for acute hypoxic respiratory depression secondary to heart failure exacerbation Objective: Heart rate and blood pressure in normal range. Currently on 3 L of oxygen. Patient was admitted with acute shortness of breath for 1 day. Prior to admission. Patient was put on BiPAP and then improved. 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 Bilateral fine crackles in bases Cardiovascular: Regular rate, Regular Rhythm, Normal S1, Normal S2, pansystolic murmur over cardiac apex and LLSB Abdomen: Bowel Sounds Present, Soft, Non Tender, Non-Distended : No renal angle tenderness. No suprapubic tenderness. Extremities: No significant edema, Capillary Refill Less than 3 Seconds Skin: No rashes, No breakdown Musculoskeletal: No Tenderness to Palpation of Joints or Extremities Neurological: Cranial nerves II-XII grossly intact, Deep Tendon Reflexes 2+/4 and Symmetrical, Neuro grossly intact Psych/Mental Status: Anxious personality Vitals/I&O's: Vital Signs Temp Pulse Resp BP Pulse Ox 98.1 F 86 20 H 109/73 98 01/30/21 04:27 01/30/21 07:00 01/30/21 07:00 01/30/21 07:00 01/30/21 07:00 Oxygen Flow Rate (L/min) 3 Oxygen Delivery Method Nasal Cannula Weight: 113 lb 12.136 oz Body Mass Index (BMI) 23.3 Intake and Output for Last 24 Hours 01/28/21 01/29/21 01/30/21 23:59 23:59 23:59 Intake Total 600 / 600 200 / 200 Output Total 2500 / 2500 500 / 500 Balance -1900 / -1900 -300 / -300 Microbiology Past 72 Hours 01/29/21 19:15 Mucosa - Nasopharyngeal Respiratory Panel (PCR) - Final 01/29/21 19:00 Urine Catheter - Barraza Legionella Antigen - Final 01/29/21 19:00 Urine Catheter - Barraza Streptococcus pneumoniae Antigen (M - Final 01/29/21 15:30 Mucosa - Nose SARS-CoV-2 Antigen (Rapid) - Final Laboratory Results 01/29/21 15:25: WBC 8.3, RBC 5.19, Hgb 15.7 H, Hct 50.7 H, MCV 97.7, MCH 30.3, MCHC 31.0 L, RDW Std Deviation 58.3 H, RDW Coeff of Toby 15.9 H, Plt Count 221, MPV 11.3, Immature Gran % (Auto) 0.400, Neut % (Auto) 65.5, Lymph % (Auto) 27.1, Hawkins % (Auto) 4.0, Eos % (Auto) 1.9, Baso % (Auto) 1.1 H, Absolute Neuts (auto) 5.4, Absolute Lymphs (auto) 2.25, Nucleated RBC % 0 01/29/21 15:25: D-Dimer Quant (PE/DVT) 1.86 H* 01/29/21 15:25: Sodium 138, Potassium 3.5, Chloride 103, Carbon Dioxide 24.0, Anion Gap 11, BUN 12, Creatinine 0.99, Estim Creat Clear Calc 39.90, Est GFR (MDRD) Af Amer 71, Est GFR (MDRD) Non-Af 59 L, BUN/Creatinine Ratio 12.1, Glucose 310 H, Calcium 8.7, Troponin I 0.029 01/29/21 15:25: B-Natriuretic Peptide > 5000.0 H 01/29/21 15:25: Magnesium 2.5 01/29/21 15:25: Hemoglobin A1c 5.8 H 01/29/21 19:05: Procalcitonin 0.10 H 01/29/21 20:05: Troponin I 0.799 H* 01/29/21 21:41: POC Glucose 144 H 01/29/21 23:15: Troponin I 1.150 H* 01/30/21 04:40: WBC 10.5, RBC 4.82, Hgb 14.6, Hct 44.6, MCV 92.5 D, MCH 30.3, MCHC 32.7 D, RDW Std Deviation 52.9 H, RDW Coeff of Toby 15.4 H, Plt Count 211, MPV 10.5, Immature Gran % (Auto) 0.300, Neut % (Auto) 90.2 H, Lymph % (Auto) 6.2 L, Hawkins % (Auto) 3.2, Eos % (Auto) 0.0, Baso % (Auto) 0.1, Absolute Neuts (auto) 9.5 H, Absolute Lymphs (auto) 0.65 L, Nucleated RBC % 0 01/30/21 04:40: Sodium 139, Potassium 3.7, Chloride 101, Carbon Dioxide 33.0 H, Anion Gap 5, BUN 13, Creatinine 0.73, Estim Creat Clear Calc 39.50, Est GFR (MDRD) Af Amer 101, Est GFR (MDRD) Non-Af 83, BUN/Creatinine Ratio 17.8, Glucose 116 H, Calcium 8.5, Total Bilirubin 0.80, AST 49 H, ALT 85 H, Alkaline Phosphatase 142 H, Total Protein 6.8, Albumin 3.6, Globulin 3.2, Albumin/Globulin Ratio 1.1, Triglycerides 59, Cholesterol 191, LDL Cholesterol 113, VLDL Cholesterol 12, HDL Cholesterol 66, TSH 0.34 L 01/30/21 04:40: Troponin I 0.994 H* Current Medications Acetaminophen (Acetaminophen 325 Mg Tablet) 650 mg PO Q6H PRN PRN PRN Reason: Pain Score 1-10/Temp > 100.7 F Al Hydroxide/Mg Hydroxide (Mag Hydrox/Al Hydrox/Simeth 30 Ml Udc) 30 ml PO Q6H PRN PRN PRN Reason: Gastric Burning Albuterol Sulfate (Albuterol 2.5 Mg/3 Ml Vial.Neb.) 2.5 mg INHALATION Q2H PRN PRN PRN Reason: Dyspnea, wheezing Albuterol/Ipratropium (Ipratropium/Albuterol Sulfate 3 Ml Ampul.Neb) 3 ml INHALATION Q4HWA.RT [facility] Last Admin: 01/30/21 06:56 Dose: 3 ml Documented by: Aspirin (Aspirin E.C. 81 Mg Tablet) [facility] Carvedilol (Carvedilol 6.25 Mg Tablet) 6.25 mg PO BID [facility] Last Admin: 01/29/21 21:43 Dose: 6.25 mg Documented by: Enoxaparin Sodium (Enoxaparin 40 Mg/0.4 Ml Syringe) 40 mg SC DAILY [facility] Famotidine (Famotidine 20 Mg Tablet) 20 mg PO BID [facility] Last Admin: 01/29/21 22:29 Dose: Not Given Documented by: Furosemide (Furosemide 40 Mg/4 Ml Vial) 40 mg IV BID@1000,1800 [facility] Last Admin: 01/29/21 21:43 Dose: 40 mg Documented by: Guaifenesin (Guaifenesin 10 Ml Udc (200mg/10ml)) 10 ml PO Q4H PRN PRN PRN Reason: COUGH Hydralazine HCl (Hydralazine 20 Mg/Ml Vial) 10 mg IV Q4H PRN PRN PRN Reason: SBP > 160 Sodium Chloride () 250 mls @ 15 mls/hr IV .[id number] PRN PRN Reason: Saline Flush Sodium Chloride () 250 mls @ 15 mls/hr IV .[id number] PRN PRN Reason: Additional IVPB Infusion Insulin Human Lispro (Insulin Lispro 100 Unit/Ml Insuln.Pen) 0 unit SC [facility]; Protocol Last Admin: 01/29/21 22:29 Dose: Not Given Documented by: Lorazepam (Lorazepam 2 Mg/Ml Syringe) 0.5 mg IV Q6H PRN PRN PRN Reason: anxiety with BIPAP Magnesium Hydroxide (Magnesium Hydroxide 30 Ml Udc) 30 ml PO DAILY PRN PRN PRN Reason: Constipation Nitroglycerin (Nitroglycerin (Inpatient Use) 0.4 Mg Tab.Subl) 0.4 mg SL Q5M PRN PRN Reason: CARDIAC/CHEST PAIN Ondansetron HCl (Ondansetron 4 Mg/2 Ml Vial) 4 mg IV Q8H PRN PRN PRN Reason: NAUSEA/VOMITING Last Admin: 01/29/21 20:13 Dose: 4 mg Documented by: Prochlorperazine Edisylate (Prochlorperazine 10 Mg/2 Ml Vial) 5 mg IV Q4H PRN PRN PRN Reason: Breakthrough Nausea/Vomiting Psyllium Hydrophilic Mucilloid (Psyllium 1 Packet) 1 packet PO DAILY PRN PRN PRN Reason: Constipation Senna/Docusate Sodium (Senna/Docusate Sodium 1 Tablet) 2 tablet PO BID PRN PRN Reason: Constipation Sodium Chloride (0.9% Saline Lock 10 Ml Syringe) 10 - 40 ml IV UD PRN PRN Reason: SALINE FLUSH Last Admin: 01/30/21 05:54 Dose: 10 ml Documented by: Throat Lozenges (Benzocaine/Menthol 1 Lozenge) 1 lozenge MUCOUS MEM Q2H PRN PRN PRN Reason: SORE THROAT STROKE Vital Signs/Narrative: Vital Signs Temp Pulse Resp BP Pulse Ox 01/30/21 07:00 86 20 H 109/73 98 01/30/21 06:56 81 12 96 01/30/21 06:00 81 18 109/59 L 96 01/30/21 05:25 97 01/30/21 05:00 80 21 H 108/72 96 01/30/21 04:27 98.1 F 76 15 105/72 96 Medical Necessity - Tobacco Use Smoking Status: Current every day smoker Tobacco Use: Cigarettes Assessment/Plan All Active Problems Acute exacerbation of CHF (congestive heart failure) (Acute) Acute respiratory failure with hypoxia and hypercapnia (Acute) 70-year-old female admitted with acute worsening of shortness of breath over 1 day. 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 1. Acute hypoxic respiratory failure secondary to acute on chronic heart failure with reduced ejection fraction:-Patient shortness of breath improved overnight on BiPAP. Currently on 3 L of oxygen nasal cannula. continue BiPAP as tolerated, supplement oxygen to maintain O2 at above 90%. Patient hemodynamically stable to transfer to PCU 2. Acute on chronic combined heart failure with reduced ejection fraction and evidence of severe diastolic dysfunction-echocardiogram in September 2020 demonstrates an EF of 15%, severe diastolic dysfunction, moderate to severe mitral regurgitation, moderate pulmonary hypertension. AICD in place. Chest x- ray and CTA shows interstitial edema with peribronchial thickening with right large and left moderate pleural effusion although decreased from the prior study. No PE. BNP greater than 5000. Lasix 41 IV twice daily. Heart failure core measures including intake and output, fluid restriction less than 1500 mL, daily weight monitoring, kidney and electrolytes monitoring. AICD interrogation Troponins elevated 1.15, 0.994 probably demand supply mismatch from CHF exacerbation. Discussed with Dr. Phelps. Patient had history of nonischemic cardiomyopathy and had cardiac cath in May 2012 in [facility] showed mild to moderate coronary artery disease with EF 25%. LM distal 30%, LAD 40%, LCx 50%, RCA minor 1880. 3. Smoking/nicotine dependence: Patient continues to smoke since her 20s, used to be 1 pack/day currently half pack per day. She smokes to relieve her anger. Smoking cessation counseling done. Steam Press Tender/building consultant consult note reviewed and no prior history of PFT or formal evaluation for COPD. Continue bronchodilator therapy. IV steroid discontinued. Continue incentive spirometry. 4. Hypertension-stable, continue carvedilol. Patient is noncompliant to losartan and Lasix at home. 5. Prediabetes: A1c 5.8 consistent with A. fib. DVT prophylaxis- Lovenox sc Total time of the visit including total time spent in counseling or coordination of care, (more than 50% of the total time, spent in obtaining medical information from nurses and other ancillary care providers,explaining to the patient about labs, imaging, diagnosis and management), discussion with accounts payable analyst and rn acute care, review of labs and imaging is 30 minutes. Clinical Impression(s) from Imaging Studies Chest X-Ray 01/29/21 15:14 IMPRESSION: 1. Mild CHF/edema with trace pleural fluid but improved since 10/10/2020. Chest CTA 01/29/21 16:08 IMPRESSION: 1. No central or segmental pulmonary embolism. 2. CHF with interstitial edema, peribronchial thickening and right larger than left pleural effusions. Pleural effusions are decreased as compared to prior study. Inpatient E&M: [id number] [facility] L3
[2021-01-30 08:21] LABS: Bedside Glucose 144 mg/dL (70-110)
[2021-01-30] MEDS: Enoxaparin 40 MG/0.4 ML Syringe SC (10:00)
[2021-01-30] MEDS: Famotidine 20 MG Tablet PO ×2 (10:00→21:00)
[2021-01-30] MEDS: Aspirin E.C. 81 MG Tablet PO (10:00)
[2021-01-30] MEDS: Furosemide 40 MG/4 ML Vial IV (10:00)
[2021-01-30] MEDS: Carvedilol 6.25 MG Tablet PO ×2 (10:00→21:00)
--- NOTE | 2021-01-30 12:00 | CON.PCM_ITS ---
Problem List (1) Acute exacerbation of CHF (congestive heart failure) Status: Acute (2) Cardiomyopathy Status: Chronic (3) CAD (coronary artery disease) Status: Chronic Qualifiers: Coronary Disease-Associated Artery/Lesion type: [place] artery [place] vs. transplanted heart: [place] heart Associated angina: without angina Qualified Code(s): I25.10 - Atherosclerotic heart disease of [place] coronary artery without angina pectoris (4) Mitral valve disease Status: Chronic (5) ICD (implantable cardioverter-defibrillator) in place Status: Chronic (6) Hypertension Status: Chronic Reason for Consult Date of Consultation: 01/30/21 History of Present Illness: The patient is a 70 year old old white female with a history of underlying h ypertension, CAD, and non-CAD related cardiomyopathy, status post BiV ICD presents for concerns of acute on chronic systolic mediated CHF. She has previously been followed by cardiology in [place], [place] and has had studies done at multiple cardiovascular institutions including those in [place], [place] as well as at [facility] in [place], [place]. She states that she has had difficulty with various medications in the past because she feels that she has had potentially adverse reactions to them. Thus she does not take previously prescribed medication such as beta-blockers and diuretics, etc., as recommended. Most recently she has had progressive shortness of breath and dyspnea. She notes that this is led her back to the hospital for additional evaluation and care. She was evaluated in the emergency department. Based upon what appeared to be concerns of an acute respiratory related issue she was placed in the ICU for additional evaluation and care. She required transient BiPAP therapy. She states she is doing better this morning since being in the hospital with medical therapy with IV diuretics and O2 support. She states her main concern has been her shortness of breath and dyspnea. She does not recall ongoing chest discomfort. She does not recall any near-syncope or syncope. She states her defibrillator has not discharged. She does not complain of ongoing peripheral pitting edema at this time. She did have troponin I levels performed. They were positive. They have decreased. She had a BNP level performed which was reported as greater than 5000. In September 2020 she underwent evaluation with a transthoracic echocardiogram. The results are as noted below. She has had previous noninvasive studies performed at [facility] in March 2020. That included an echocardiogram with the results as noted below as well. She has had a remote echocardiogram performed at [facility] in 2011 along with her diagnostic cardiac catheterization. [] Past Medical History Allergies/Adverse Reactions: Allergies Sulfa (Sulfonamide Antibiotics) Allergy (Verified 01/29/21 15:12) Rash amoxicillin Adverse Reaction (Verified 01/29/21 15:12) Other Home Medications: Ambulatory Orders Medication Instructions Recorded Aspirin E.C. 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 Lives: Alone Smoking Status: Current every day smoker Tobacco Use: Cigarettes Alcohol: None Drugs: None Review of Systems - Review of Systems General: Denies: Fever, Night Sweats, Fatigue Cardiovascular: Reports: Shortness of Breath, Shortness of Breath at Rest, Shortness of Breath with Exertion, Orthopnea. Denies: Chest Discomfort, PND, Pe ripheral Edema, Palpitations, Lightheadedness, Dizziness, Near Syncope, Syncope Respiratory: Reports: Shortness of Breath. Denies: Cough, Sputum Production, Hemoptysis Gastrointestinal: Denies: Hematemesis, Hematochezia, Melena Genitourinary: Denies: Dysuria, Hematuria Skin: Denies: Rash Subjectve: This is a 70-year-old white female who appears to be resting reasonably comfortably at the moment in no acute distress. Objective: Vital Signs Temp Pulse Resp BP Pulse Ox 97.8 F 93 18 111/71 98 01/30/21 10:00 01/30/21 11:05 01/30/21 10:00 01/30/21 10:00 01/30/21 10:00 Oxygen Flow Rate (L/min) 3 Oxygen Delivery Method Nasal Cannula Weight: 113 lb 12.136 oz Body Mass Index (BMI) 23.3 Intake and Output for Last 24 Hours 01/28/21 01/29/21 01/30/21 23:59 23:59 23:59 Intake Total 600 / 600 400 / 400 Output Total 2500 / 2500 725 / 725 Balance -1900 / -1900 -325 / -325 General: Awake, Alert, Oriented x 3, Cooperative, No Acute Distress HEENT: Atraumatic, Normocephalic, PERRL, EOMI, Sclera Non Icteric Neck: Supple, Good ROM Lungs: Diminished Eriberto Bases Cardiovascular: Regular Rhythm, Normal S1, Normal S2 Murmur Murmur: Grade 3/6, Holosystolic, LLSB, [employer], Axilla Vascular: No Carotid Bruits Abdomen: Bowel Sounds Present, Soft Extremities: No edema Neurological: No Focal Motor or Sensory Deficit Psych/Mental Status: Appropriate 01/29/21 15:25: WBC 8.3, RBC 5.19, Hgb 15.7 H, Hct 50.7 H, MCV 97.7, MCH 30.3, MCHC 31.0 L, Plt Count 221, MPV 11.3, Immature Gran % (Auto) 0.400, Neut % (Auto) 65.5, Lymph % (Auto) 27.1, [place] % (Auto) 4.0, Eos % (Auto) 1.9, Baso % (Auto) 1.1 H, Absolute Neuts (auto) 5.4, Nucleated RBC % 0 01/29/21 15:25: D-Dimer Quant (PE/DVT) 1.86 H* 01/29/21 15:25: Sodium 138, Potassium 3.5, Chloride 103, Carbon Dioxide 24.0, Anion Gap 11, BUN 12, Creatinine 0.99, Est GFR (MDRD) Af Amer 71, Est GFR (MDRD) Non-Af 59 L, BUN/Creatinine Ratio 12.1, Glucose 310 H, Calcium 8.7, Troponin I 0.029 01/29/21 15:25: B-Natriuretic Peptide > 5000.0 H 01/29/21 15:25: Magnesium 2.5 01/29/21 15:25: Hemoglobin A1c 5.8 H 01/29/21 20:05: Troponin I 0.799 H* 01/29/21 23:15: Troponin I 1.150 H* 01/30/21 04:40: WBC 10.5, RBC 4.82, Hgb 14.6, Hct 44.6, MCV 92.5 D, MCH 30.3, MCHC 32.7 D, Plt Count 211, MPV 10.5, Immature Gran % (Auto) 0.300, Neut % (Auto) 90.2 H, Lymph % (Auto) 6.2 L, [place] % (Auto) 3.2, Eos % (Auto) 0.0, Baso % (Auto) 0.1, Absolute Neuts (auto) 9.5 H, Nucleated RBC % 0 01/30/21 04:40: Sodium 139, Potassium 3.7, Chloride 101, Carbon Dioxide 33.0 H, Anion Gap 5, BUN 13, Creatinine 0.73, Est GFR (MDRD) Af Amer 101, Est GFR (MDRD) Non-Af 83, BUN/Creatinine Ratio 17.8, Glucose 116 H, Calcium 8.5, Total Bilirubin 0.80, Triglycerides 59, Cholesterol 191, LDL Cholesterol 113, VLDL Cholesterol 12, HDL Cholesterol 66 01/30/21 04:40: Troponin I 0.994 H* Rhythm: Electronic ventricular paced rhythm EKG: Chronic ventricular paced rhythm ECHO: 10/15/2020 Interpretation Summary +Transthoracic Echo Summary: -The LV is dilated. The LV EF is 15%. -There is no gross LV thrombus. -There is severe generalized wall motion hypokinesis. -There is severe diastolic dysfunction. -There is at least moderate to severe mitral regurgitation. The jet appears to be directed centrally -There is moderate Pulmonary Hypertension with estimated RVSP of 55mmHg. -The IVC is dilated and plethoric. -There is no gross PFO or ASD. There is moderate sized left sided pleural effusion. There is pacing lead in the RV There is physiologic pericardial effusion. There is no evidence of cardiac echo tamponade. Frantz Shah DO FSCAI, FACC, FASE, FASNC Echo: 04-13-2020: [place], [place] Mild concentric LVH LVEF 40 to 45% Nonspecific wall motion abnormality Moderate mitral regurgitation Class I diastolic dysfunction Mild tricuspid regurgitation Catheters in RA/RV Echo: 06-11-2012: [facility] Conclusion: Left ventricular chamber size is normal Global dysfunction with regional wall motion abnormalities with severe hypokinesis/akinesis noted in the inferior lateral and septal mccallum LVEF of 23% RV global systolic function is normal No significant valvular disease Cardiac Cath: 06-11-2012: [facility] Bubble left ventricular function was severely depressed with an LVEF of 25% Mildly elevated LVEDP Left main: Distal 30% stenosis LAD: 40% stenosis LCx: 50% stenosis RCA: Minor luminal irregularities Recommendation: Medical therapy CXR: FINDINGS: EKG leads project over the chest. Three lead cardiac conduction device is seen via the left subclavian vein with lead tips projecting over the right atrium and right ventricle, respectively, with left atrial lead projecting over the left atrium/posterior cardiac border. Mild central pulmonary vascular congestion and interstitial thickenings along the periphery and in the lung bases suggesting edema, less severe as compared to the prior study. Trace bilateral pleural fluid. There is moderate cardiac enlargement. Normal mediastinum and sp. There is atherosclerotic calcification of the aortic arch with tortuosity. There is demineralization of the osseous structures. Normal visualized ribs, clavicles, and shoulders. There is no demonstrated abnormality of the visualized soft tissue structures of the upper abdomen. RAD/Chest 1 View (Portable) IMPRESSION: 1. Mild CHF/edema with trace pleural fluid but improved since 10/10/2020. Electronically Signed: Timo Peterson MD ([place]) at 15:[address] Scan: FINDINGS: Normal enhancement of the main pulmonary artery and right and left pulmonary arteries. Normal enhancement of the bilateral peripheral pulmonary arteries. There is no demonstrated pulmonary embolism. Normal thoracic aorta and visualized great vessels. There is no demonstrated aortic dissection. There is cardiomegaly with left ventricular enlargement. Cardiac conduction device is stable. No pericardial effusion detected. Normal mediastinum. Normal hilar regions. There is peribronchial thickening. There are mucoid secretions in the dependent portion of the lower trachea. The lungs are under expanded. Multilobar interstitial thickening and groundglass opacities but no dense airspace consolidation. Small right and trace left pleural effusions. Normal chest wall structures. There are degenerative changes of thoracic spine. Normal visualized upper abdomen. CT/CTA Chest W/WO Contrast IMPRESSION: 1. No central or segmental pulmonary embolism. 2. CHF with interstitial edema, peribronchial thickening and right larger than left pleural effusions. Pleural effusions are decreased as compared to prior study. Electronically Signed: Timo Peterson MD ([place]) at 16:44 EDT Assessment/Plan 1. Acute on chronic systolic mediated CHF She does appear to have concerns of acute on chronic systolic mediated CHF. There is concerns this could come from her underlying cardiovascular disease as well as potentially medication noncompliance. At the present time she is continuing medical management. 2. Cardiomyopathy She does have what has been reported as a non-CAD related cardiomyopathy in the past. She has been treated medically. It appears she has a biventricular ICD in place. She has undergone noninvasive evaluation in September 2020. Her echocardiographic results are as noted below. At the present time she is continuing medical management. 3. CAD She does have an element of CAD based upon her previous [facility] diagnostic cardiac catheterization from 2011. It is unclear as to whether this has progressed to contribute to any of her symptoms and/or concerns and findings such as her abnormal troponin I levels versus her symptoms and concerns and abnormal troponin I levels being a secondary event to her underlying acute on chronic systolic mediated CHF superimposed upon her underlying left ventricular systolic dysfunction. He does need to continue risk factor evaluation medical therapy as deemed appropriate. At the moment she will continue evaluation and care as deemed appropriate. Depending upon her clinical course this may include additional noninvasive and/or invasive studies such as repeat diagnostic cardiac catheterization. 4. Mitral valve regurgitation She has been described as having mitral valve regurgitation. Her echocardiographic reports of been noted. The severity of her mitral valve regurgitation appears to have changed over time from being no significant valvular disease to moderate mitral valve insufficiency to moderately severe mitral valve insufficiency. This may be secondary to her underlying cardiomyopathy. She will need to continue medical management as best as possible. Depending upon her clinical course she may need to be considered for reevaluation at a tertiary care center as to whether or not she would be a candidate for any form of percutaneous or surgical based mitral valve repair. 5. ICD It appears she has a biventricular ICD in place. It appears she is pacing 100% of the time. She will continue to be followed. Her device can be reassessed as needed. 6. Hypertension She will continue medical therapy as deemed appropriate taken into consideration her other comorbidities. Comment: The patient's case was discussed reviewed with her. It has been recommended that she continue medical therapy for her underlying cardiovascular condition. Thus, based upon her clinical course and objective findings consideration would be given to reevaluation of her cardiac anatomy and physiology with additional noninvasive/invasive studies as deemed appropriate she has repeat transthoracic echocardiogram and a diagnostic cardiac catheterization. These procedures and risks were discussed with the patient. She was agreeable to this approach. The patient's case is also been discussed with Dr. Vieyra. This note was generated using a voice recognition system and there may be incorrect words, spelling or punctuation that were not noted when reviewing the office note prior to saving. Procedure Criteria Procedure Type: Elective COVID Risk Discussion: The surgeon/proceduralist and patient have discussed in detail the risk of exposure to and/or potential harm posed by the COVID-19 virus with having a surgery/procedure at this time versus the risk of delaying the surgery/procedure. It is not possible to know either the risk of delaying the surgery or procedure or chance of getting an infection with perfect accuracy, but a joint decision was made between the patient and the surgeon/proceduralist to proceed at this time with the scheduled surgery/procedure as indicated on the consent form.
--- NOTE | 2021-01-30 13:35 | ECHOD_ITS ---
Reason For Study: CHF Procedure This was a 2D Doppler, Color Flow transthoracic echocardiogram. The exam was of adequate technical quality. Exam performed portable in patient room. Left Ventricle Severely dilated left ventricle. Severe segmental systolic dysfunction (see wall motion). The estimated ejection fraction is 15 %. Diastolic function is indeterminate. Anterio-Basal: Hypokinetic. Lateral-Basal: Hypokinetic. Posterior-Basal: Hypokinetic. Infero-Basal: Hypokinetic. Basal inferoseptal: Akinetic. Basal anteroseptal: Severely Hypokinetic. Mid-Anterior : Akinetic. Mid-Lateral : Severely Hypokinetic. Mid-Posterior: Akinetic. Mid-Inferior: Akinetic. Mid- inferoseptal : Akinetic. Mid-anteroseptal : Akinetic. [place] : Akinetic. Right Ventricle Normal RV size. ICD or pacer leads identified within the right ventricle. Normal systolic function. Atria The left atrium is mildly enlarged. Normal right atrium. ICD or pacer leads identified within the right atrium. No doppler evidence for ASD. Mitral Valve There is no mitral annular calcification. Moderate diffuse mitral valve thickening. Mild papillary muscle dysfunction of the mitral valve. Moderate (2+) mitral valve insufficiency. Tricuspid Valve Normal tricuspid valve. Mild tricuspid valve insufficiency. Right ventricular systolic pressure estimated to be 31 mmHg. Aortic Valve Trisinus/trileaflet aortic valve. Moderate focal aortic valve calcification. Pulmonic Valve The pulmonic valve is not well visualized. Great Vessels Normal sized aortic root. Pericardium/Pleural Small pericardial effusion. There are no echocardiographic indications of cardiac tamponade. MMode/2D Measurements & Calculations LVIDd: 5.6 cm IVSd: 0.78 cm Ao root diam: 3.2 cm LVIDs: 5.3 cm LVPWd: 0.91 cm FS: 4.9 % LAV(MOD-bp): 45.7 ml EDV(MOD-sp4): 245.1 ml EDV(MOD-sp2): 262.7 ml LAV(MOD-bp) Indexed: 30.7 ml/m2 ESV(MOD-sp4): 216.3 ml EF(MOD-sp2): 21.2 % LAV(MOD-sp2): 69.3 ml EF(MOD-sp4): 11.7 % LAV(MOD-sp4): 28.2 ml SV(MOD-sp4): 28.8 ml SV(MOD-sp2): 55.8 ml LA A4 area: 12.7 cm2 LA dimension(2D): 4.4 cm RA A4 area: 9.7 cm2 Doppler Measurements & Calculations MV E max alberto: 106.2 cm/sec Lat Peak E' Alberto: 10.0 cm/sec Med Peak E' Alberto: 6.3 cm/sec E/E' lat: 10.6 E/E' med: 16.9 Ao V2 max: 127.4 cm/sec LV V1 max: 112.2 cm/sec PA V2 max: 84.4 cm/sec Ao max P.5 mmHg LV V1 max P.0 mmHg TR max alberto: 266.3 cm/sec TR max P.4 mmHg ECHO/Echo Complete Interpretation Summary Severely dilated left ventricle. Severe segmental systolic dysfunction (see wall motion). The estimated ejection fraction is 15 %. The left atrium is mildly enlarged. Moderate diffuse mitral valve thickening. Mild papillary muscle dysfunction of the mitral valve. Moderate (2+) mitral valve insufficiency. Mild tricuspid valve insufficiency. Moderate focal aortic valve calcification. Small pericardial effusion. There are no echocardiographic indications of cardiac tamponade. Right ventricular systolic pressure estimated to be 31 mmHg. Diastolic function is indeterminate. ICD or pacer leads identified within the right atrium ICD or pacer leads identified within the right ventricle. Ordering Physician: Livan Phelps Performed By: Kayla Tuttle RDCS
[2021-01-30] MEDS: Clopidogrel Bisulfate 300 MG Tablet PO (13:58)
[2021-01-30] MEDS: Furosemide 20 MG/2 ML VIAL IV (17:25)
[2021-01-30] MEDS: Acetaminophen 325 MG Tablet 650 MG PO (21:40)
[2021-01-31] VITALS (18 sets, daily range): BP systolic 108–138; BP diastolic 69–91; PULSE 85–114; RESP 15–20; TEMP 36.5–36.8; O2SAT 94–100
[2021-01-31] MEDS: Aspirin E.C. 81 MG Tablet PO (07:06)
[2021-01-31] MEDS: Clopidogrel Bisulfate 75 MG Tablet PO (07:06)
--- NOTE | 2021-01-31 08:22 | CL.D_ITS ---
Patient Name: TIFFANY CARDONA Study Date: 01/31/2021 Performing: Livan Phelps MD Ht: 61.02 inches 155 cm : 1950 Wt: 112.44 lbs 51 kg Age: 70 Gender: female BSA: 1.48 PROCEDURE(S) PERFORMED PD11-SBM/COR/LV CLINICAL PROFILE AND INDICATIONS Indications: Suspected CAD, Cardiomyopathy Heart Failure: NYHA Class: 3, Newly Diagnosed: No, Heart Failure Type: Systolic Stress/Imaging Stress/Image Study Performed: No Angina Classification Anginal Classification w/in 2 Weeks: Anginal Equivalent Dyspnea CAD Presentations: Non-STEMI. CONCLUSIONS Elevated Left Ventricular End Diastolic Pressure (mild) Segmented LV systolic dysfunction- Severe LVEF: by LV gram 15 % [place] Multivessel CAD Left to Right Collateral Flow RECOMMENDATIONS Risk factor modification Medical therapy Surgery consult for coronary revascularization DESCRIPTION OF PROCEDURE The patient arrived to the procedure lab. The risks and benefits of the procedure as well as a full d escription of our services here and current unavailability of surgical backup were fully explained to the patient and/or their significant other prior to the catheterization. The Timeout was completed, verifying the correct patient and procedure. The patient's procedural site was prepped and draped in the usual fashion. Local anesthetic was given subcutaneously to right radial region with Lidocaine 2% . Using a modified Seldinger technique, arterial access was obtained via the right radial artery, a 6 Fr sheath was inserted. Right Coronary Artery selective angiography was then performed in multiple v iews using a 5 Fr. 4.0 [place] catheter. Left Coronary Artery selective angiography was performed in mu ltiple views using a 5 Fr. 4.0 [place] catheter. Left Ventriculography was performed in [place] projection using a 5 Fr. Pig[place] catheter. LV to AO pullback pressures were then recorded.The arterial sheath was pulled and a TR Band was applied for hemostasis 12cc air CORONARY ANGIOGRAPHY DOMINANCE: Right Dominant LEFT HEART ASSESSMENT Left Ventricular Ejection Fraction: by LV Gram 15 % Anterior Hypokinesis - Severe. Inferior Basal Hypokinesis - Severe. Inferior Mid Akinesis. Apical Karlos nesis Elevated Left Ventricular End Diastolic Pressure LVEDP: 14 mmHg LEFT MAIN: Mild calcification, distal: 50 % Stenosis LEFT ANTERIOR DESCENDING ARTERY: PROX LAD: Moderate calcification, 99 % Stenosis MID LAD: Moderate calcification DISTAL LAD: 99 % Stenosis CIRCUMFLEX ARTERY: Mild luminal irregularities, diffuse: 25 % Stenosis OM 1: Proximal - 25 % Stenosis RAMUS: Mild luminal irregularities, 75 % Stenosis RIGHT CORONARY ARTERY: Mild calcification Mild luminal irregularities MID RCA: irregular: 85 % Stenosis DISTAL RCA: eccentric: 25 % Stenosis, 99 % Stenosis COLLATERAL FLOW: Collateral flow from Left to Right AORTIC ROOT: Angiographically normal COMPLICATIONS No Complications PROCEDURE MEDICATIONS Versed 1 mg IV Oxygen: 3 L/min via nasal cannula Heparin diluted in 23cc Heparinized saline. Patient given 10cc IA of this solution. 01/31/2021 07:44: 33 Lasix 40 mg IV 01/31/2021 07:55:46 Zofran 4 mg IV 01/31/2021 07:34:40 SUMMARY OF HEMODYNAMIC DATA Time AIR REST ECG 07:26:03 AO 100/60 (77) SA 07:46:15 LV 121/-1, 15 07:53:08 LV 122/0, 14 07:53:14 LV 124/6, 23 07:54:01 LV 125/6, 20 07:54:07 LVp 128/5, 23 07:54:11 AOp 128/68 (91) 07:54:16 Signed By Livan Phelps MD On 01/31/2021 08:31:15 Signed By Livan Phelps MD On 01/31/2021 08:21:38 Livan Phelps MD
--- NOTE | 2021-01-31 08:23 | PCM.PN.CARD ---
Subjectve: The patient underwent diagnostic cardiac catheterization earlier this a.m. She appeared to be tolerate the procedure without any obvious adverse events. Objective: Vital Signs Temp Pulse Resp BP Pulse Ox 97.7 F L 85 15 119/69 96 01/31/21 04:00 01/31/21 04:00 01/31/21 04:00 01/31/21 04:00 01/31/21 04:00 Oxygen Flow Rate (L/min) 3 Oxygen Delivery Method Nasal Cannula Weight: 112 lb 6.972 oz Body Mass Index (BMI) 23.3 Intake and Output for Last 24 Hours 01/29/21 01/30/21 01/31/21 23:59 23:59 23:59 Intake Total 600 / 600 1270 / 1270 Output Total 2500 / 2500 2925 / 2925 450 / 450 Balance -1900 / -1900 -1655 / -1655 -450 / -450 General: Awake, Alert, Oriented x 3, Cooperative, No Acute Distress HEENT: Atraumatic, Normocephalic, PERRL, EOMI, Sclera Non Icteric Neck: Supple, Good ROM, No JVD Lungs: Clear to auscultation Cardiovascular: Regular Rhythm, Normal S1, Normal S2 Murmur Murmur: Grade 3/6, Holosystolic, LLSB, [place], Axilla Vascular: Normal Radial Pulses Abdomen: Bowel Sounds Present, Soft Extremities: No edema Neurological: No Focal Motor or Sensory Deficit Psych/Mental Status: Appropriate Rhythm: Electronic ventricular paced rhythm Cardiac Cath: CONCLUSIONS Elevated Left Ventricular End Diastolic Pressure (mild) Segmented LV systolic dysfunction- Severe LVEF: by LV gram 15 % Syc[place] Multivessel CAD RECOMMENDATIONS Risk factor modification Medical therapy Surgery consult for coronary revascularization DESCRIPTION OF PROCEDURE The patient arrived to the procedure lab. The risks and benefits of the procedure as well as a full description of our services here and current unavailability of surgical backup were fully explained to the patient and/or their significant other prior to the catheterization. The Timeout was completed, verifying the correct patient and procedure. The patient's procedural site was prepped and draped in the usual fashion. Local anesthetic was given subcutaneously to right radial region with Lidocaine 2%. Using a modified Seldinger technique, arterial access was obtained via the right radial artery, a 6Fr sheath was inserted. Right Coronary Artery selective angiography was then performed in multiple views using a 5 Fr. 4.0 [place] catheter. Left Coronary Artery selective angiography was performed in multiple views using a 5 Fr. 4.0 [place] catheter. Left Ventriculography was performed in VICTORIA projection using a 5 Fr. Pigtail catheter. LV to AO pullback pressures were then recorded.The arterial sheath was pulled and a TR Band was applied for hemostasis 12cc air CORONARY ANGIOGRAPHY DOMINANCE: Right Dominant LEFT HEART ASSESSMENT Left Ventricular Ejection Fraction: by LV Gram 15 % Anterior Hypokinesis - Severe. Inferior Basal Hypokinesis - Severe. Inferior Mid Akinesis. Apical Akinesis Elevated Left Ventricular End Diastolic Pressure LVEDP: 14 mmHg LEFT MAIN: Mild calcification, distal: 50 % Stenosis LEFT ANTERIOR DESCENDING ARTERY: PROX LAD: Moderate calcification, 99 % Stenosis MID LAD: Moderate calcification DISTAL LAD: 99 % Stenosis CIRCUMFLEX ARTERY: Mild luminal irregularities, diffuse: 25 % Stenosis OM 1: Proximal - 25 % Stenosis RAMUS: Mild luminal irregularities, 75 % Stenosis RIGHT CORONARY ARTERY: Mild calcification Mild luminal irregularities MID RCA: irregular: 85 % Stenosis DISTAL RCA: eccentric: 25 % Stenosis, 99 % Stenosis AORTIC ROOT: Angiographically normal Medical Necessity - Tobacco Use Smoking Status: Current every day smoker Tobacco Use: Cigarettes Assessment/Plan 1. Acute on chronic systolic mediated CHF She does appear to have concerns of acute on chronic systolic mediated CHF. There is concerns this could come from her underlying cardiovascular disease as well as potentially medication noncompliance. At the present time she is continuing medical management. 2. Cardiomyopathy She does have what has been reported as a non-CAD related cardiomyopathy in the past. She has been treated medically. It appears she has a biventricular ICD in place. She has undergone noninvasive evaluation in September 2020. Her echocardiographic results are as noted below. At the present time she is continuing medical management. 3. CAD She does have an element of CAD based upon her previous [facility] diagnostic cardiac catheterization from 2011. She has undergone repeat diagnostic cardiac catheterization. She has been found to have angiographically significant appearing CAD of the left main coronary artery, LAD, intermediate ramus, and RCA systems. The present time she will continue medical management. However, based upon her overall findings it has been recommended that she be transferred to a tertiary care center for consideration for further evaluation of her CAD process for either high risk multivessel PCI versus high risk CABG. 4. Mitral valve regurgitation She has been described as having mitral valve regurgitation. Her echocardiographic reports of been noted. The severity of her mitral valve regurgitation appears to have changed over time from being no significant valvular disease to moderate mitral valve insufficiency to moderately severe mitral valve insufficiency. This may be secondary to her underlying cardiomyopathy. She will need to continue medical management as best as possible. She will have further follow-up of her mitral valve anatomy and physiology with a transthoracic echocardiogram. 5. ICD It appears she has a biventricular ICD in place. It appears she is pacing 100% of the time. She will continue to be followed. Her device can be reassessed as needed. 6. Hypertension She will continue medical therapy as deemed appropriate taken into consideration her other comorbidities. Comment: The patient's case has been reviewed with the patient as well as with Dr. Woods. Dr. Woods has initiated transfer to [facility] for further cardiovascular evaluation and care. This note was generated using a voice recognition system and there may be incorrect words, spelling or punctuation that were not noted when reviewing the office note prior to saving.
[2021-01-31] MEDS: Carvedilol 6.25 MG Tablet PO ×2 (09:06→21:11)
[2021-01-31] MEDS: Famotidine 20 MG Tablet PO (09:07)
[2021-01-31] MEDS: Enoxaparin 40 MG/0.4 ML Syringe SC (09:07)
--- NOTE | 2021-01-31 10:30 | PN_ITS ---
Patient Problems: Active and Suspected Problems (Last Updated 01/31/21 @ 09:25 by Mirta Worley) Acute exacerbation of CHF (congestive heart failure) (Acute) Acute respiratory failure with hypoxia and hypercapnia (Acute) Subjective: Patient did well overnight. Patient did have a heart catheterization this morning and reportedly tolerating well. Oxygenation continues to improve and patient is requiring 1 L nasal cannula to maintain saturation. Patient was have an echocardiogram showing significant LV dilation on my evaluation, but formal interpretation is still pending. Patient did verify that she has a long history of smoking and has never been seen by [facility]. - Physical Exam Vitals/I&O's: Vital Signs Temp Pulse Resp BP Pulse Ox 36.7 C 87 19 H 109/72 96 01/31/21 10:00 01/31/21 10:00 01/31/21 10:00 01/31/21 10:00 01/31/21 10:00 Oxygen Flow Rate (L/min) 1 Oxygen Delivery Method Nasal Cannula Weight: 51 kg Body Mass Index (BMI) 23.3 Intake and Output for Last 24 Hours 01/29/21 01/30/21 01/31/21 23:59 23:59 23:59 Intake Total 600 / 600 1270 / 1270 Output Total 2500 / 2500 2925 / 2925 450 / 450 Balance -1900 / -1900 -1655 / -1655 -450 / -450 General: Alert, Oriented x3, Cooperative, No apparent distress, - - No conversational dyspnea. Slight build. HEENT: Atraumatic, PERRLA, EOMI, Normocephalic, - - No scleral icterus or injection noted Oral: Moist Mucosa, No Gingival or Mucosal Lesions/ Ulcerations Neck: Supple, No JVD, No Nodes, Trachea Midline Lungs: No rhonchi, No wheeze, No rales, Diminished Cardiovascular: Regular rate, Regular Rhythm, Normal S1, Normal S2, Murmur - Grade 2 out of 6 diastolic murmur at the left sternal border, No rub noted, No Gallop Abdomen: Bowel Sounds Present, Soft, Non Tender, Non-Distended Extremities: No clubbing, No cyanosis, No edema Skin: No rashes, No breakdown Musculoskeletal: No Tenderness to Palpation of Joints or Extremities Lymphatic: No Cervical, Supraclavicular, or Inguinal Adenopathy Neurological: Cranial nerves II-XII grossly intact, Neuro grossly intact, Motor Exam 5/5 strength throughout Psych/Mental Status: Alert and oriented to time, place, person, mood and affect Microbiology Past 72 Hours 01/29/21 15:25 Blood Culture (Wb) #2 - Anticubital Left Blood Culture - Preliminary No growth in 48 hours. 01/29/21 15:25 Blood Culture (Wb) - Anticubital Right Blood Culture - Preliminary No growth in 48 hours. 01/29/21 19:15 Mucosa - Nasopharyngeal Respiratory Panel (PCR) - Final 01/29/21 19:00 Urine Catheter - Barraza Legionella Antigen - Final 01/29/21 19:00 Urine Catheter - Barraza Streptococcus pneumoniae Antigen (M - Final 01/29/21 15:30 Mucosa - Nose SARS-CoV-2 Antigen (Rapid) - Final Current Medications Acetaminophen (Acetaminophen 325 Mg Tablet) 650 mg PO Q6H PRN PRN PRN Reason: Pain Score 1-10/Temp > 100.7 F Last Admin: 01/30/21 21:40 Dose: 650 mg Documented by: Al Hydroxide/Mg Hydroxide (Mag Hydrox/Al Hydrox/Simeth 30 Ml Udc) 30 ml PO Q6H PRN PRN PRN Reason: Gastric Burning Albuterol Sulfate (Albuterol 2.5 Mg/3 Ml Vial.Neb.) 2.5 mg INHALATION Q2H PRN PRN PRN Reason: Dyspnea, wheezing Albuterol/Ipratropium (Ipratropium/Albuterol Sulfate 3 Ml Ampul.Neb) 3 ml INHALATION Q4HWA.RT [facility] Last Admin: 01/30/21 20:12 Dose: 3 ml Documented by: Aspirin (Aspirin E.C. 81 Mg Tablet) [facility] Last Admin: 01/31/21 07:06 Dose: 81 mg Documented by: Carvedilol (Carvedilol 6.25 Mg Tablet) 6.25 mg PO BID [facility] Last Admin: 01/31/21 09:06 Dose: 6.25 mg Documented by: Clopidogrel Bisulfate (Clopidogrel Bisulfate 75 Mg Tablet) 75 mg PO DAILY [facility] Last Admin: 01/31/21 07:06 Dose: 75 mg Documented by: Enoxaparin Sodium (Enoxaparin 40 Mg/0.4 Ml Syringe) 40 mg SC DAILY [facility] Last Admin: 01/31/21 09:07 Dose: 40 mg Documented by: Famotidine (Famotidine 20 Mg Tablet) 20 mg PO BID [facility] Last Admin: 01/31/21 09:07 Dose: 20 mg Documented by: Furosemide (Furosemide 20 Mg/2 Ml Vial) 20 mg IV BID@1000,1800 [facility] Last Admin: 01/31/21 10:14 Dose: Not Given Documented by: Guaifenesin (Guaifenesin 10 Ml Udc (200mg/10ml)) 10 ml PO Q4H PRN PRN PRN Reason: COUGH Hydralazine HCl (Hydralazine 20 Mg/Ml Vial) 10 mg IV Q4H PRN PRN PRN Reason: SBP > 160 Sodium Chloride () 250 mls @ 15 mls/hr IV .[id number] PRN PRN Reason: Saline Flush Sodium Chloride () 250 mls @ 15 mls/hr IV .[id number] PRN PRN Reason: Additional IVPB Infusion Sodium Chloride () 1,000 mls @ 0 mls/hr IV .Q0M [facility] Lorazepam (Lorazepam 2 Mg/Ml Syringe) 0.5 mg IV Q6H PRN PRN PRN Reason: anxiety with BIPAP Magnesium Hydroxide (Magnesium Hydroxide 30 Ml Udc) 30 ml PO DAILY PRN PRN PRN Reason: Constipation Nitroglycerin (Nitroglycerin (Inpatient Use) 0.4 Mg Tab.Subl) 0.4 mg SL Q5M PRN PRN Reason: CARDIAC/CHEST PAIN Ondansetron HCl (Ondansetron 4 Mg/2 Ml Vial) 4 mg IV Q8H PRN PRN PRN Reason: NAUSEA/VOMITING Last Admin: 01/29/21 20:13 Dose: 4 mg Documented by: Prochlorperazine Edisylate (Prochlorperazine 10 Mg/2 Ml Vial) 5 mg IV Q4H PRN PRN PRN Reason: Breakthrough Nausea/Vomiting Psyllium Hydrophilic Mucilloid (Psyllium 1 Packet) 1 packet PO DAILY PRN PRN PRN Reason: Constipation Senna/Docusate Sodium (Senna/Docusate Sodium 1 Tablet) 2 tablet PO BID PRN PRN Reason: Constipation Sodium Chloride (0.9% Saline Lock 10 Ml Syringe) 10 - 40 ml IV UD PRN PRN Reason: SALINE FLUSH Last Admin: 01/30/21 17:25 Dose: 10 ml Documented by: Throat Lozenges (Benzocaine/Menthol 1 Lozenge) 1 lozenge MUCOUS MEM Q2H PRN PRN PRN Reason: SORE THROAT Medical Necessity - Tobacco Use Smoking Status: Current every day smoker Tobacco Use: Cigarettes Assessment/Plan All Active Problems (Last Updated 01/31/21 @ 09:25 by Mirta Worley) Acute exacerbation of CHF (congestive heart failure) (Acute) Acute respiratory failure with hypoxia and hypercapnia (Acute) RECOMMENDATIONS: 1. Wean supplemental oxygen to maintain saturations at or above 90%. 2. Continue IV diuretic therapy as tolerated by hemodynamics and renal function. 3. Continue bronchodilator therapy. Cane oximetry prior to discharge 4. Outpatient complete PFT for quantification clarification of lung function 5. Encourage incentive spirometer use and mobilize patient as tolerated. 6. Hemodynamically stable. Will sign off from a pulmonary perspective IMPRESSIONS: 1. Acute hypoxemic respiratory failure Patient with significant improvement over the hospitalization. Clinical suspicion for acute on chronic systolic congestive heart failure leading to current presentation. Patient has had a heart catheterization this morning. Defer to cardiology on further recommendations. 2. History of tobacco dependency High clinical suspicion for COPD complicating patient's cardiac presentation. Believe that patient's acute hypoxic respiratory failure secondary to CHF, but patient also has multiple risk factors for COPD as a complicating factor. Reasonable to do without IV steroids and bronchodilators, but outpatient pulmonary function tests were recommended. Patient states that she will not present to the outpatient office as long as I need a mask. Patient appears to be precontemplative on the possible contributing factor of COPD. 3. History of anxiety/panic attacks/hypertension Complicates care, management, recovery and prognosis. Continue home medications as indicated. Inpatient E&M: 50618 Subs Hosp L2
[2021-01-31] MEDS: Ipratropium/Albuterol Sulfate 3 ML AMPUL.NEB INHALATION ×2 (10:45→20:45)
--- NOTE | 2021-01-31 17:02 | PN_ITS ---
Patient Problems: Active and Suspected Problems (Last Updated 01/31/21 @ 09:25 by Mirta Worley) Acute exacerbation of CHF (congestive heart failure) (Acute) Acute respiratory failure with hypoxia and hypercapnia (Acute) Subjective: Patient currently has no complaints. She states that her respiratory status has improved since admission but still is not at baseline. Reports that she believes she has an allergy to Lasix because she feels more short of breath after its dose. I discussed with her a trial of Bumex and she is accepting of this. Her first dose will be tomorrow. We are currently awaiting a bed at [facility] as the patient needs further cardiac intervention. Vitals/I&O's: Vital Signs Temp Pulse Resp BP Pulse Ox 98.2 F 94 16 108/77 94 01/31/21 16:00 01/31/21 16:00 01/31/21 16:00 01/31/21 16:00 01/31/21 16:00 Oxygen Flow Rate (L/min) 3 Oxygen Delivery Method Room Air Weight: 51 kg Body Mass Index (BMI) 23.3 Intake and Output for Last 24 Hours 01/29/21 01/30/21 01/31/21 23:59 23:59 23:59 Intake Total 600 / 600 1270 / 1270 480 / 480 Output Total 2500 / 2500 2925 / 2925 2500 / 2500 Balance -1900 / -1900 -1655 / -165 -2019 / General: Alert, Oriented x3, Cooperative, No apparent distress, Well developed, Well nourished HEENT: Atraumatic, PERRLA, EOMI, Normocephalic, EAC Clear Oral: Moist Mucosa, No Gingival or Mucosal Lesions/ Ulcerations, - - Mallampati 2, no thrush Neck: Supple, Trachea Midline, Thyroid Normal Size and Texture Lungs: No rhonchi, No wheeze, Diminished, Rales - Scattered at bilateral bases Cardiovascular: Regular rate, Regular Rhythm, Normal S1, Normal S2, No Ectopic Activity, Murmur, No rub noted, No Gallop Abdomen: Bowel Sounds Present, Soft, Non Tender, Non-Distended, No hernias noted Extremities: No clubbing, No cyanosis, No edema, Capillary Refill Less than 3 Seconds, Peripheral Pulses Normal Skin: No rashes, No breakdown Musculoskeletal: No Tenderness to Palpation of Joints or Extremities, No Muscle Wasting, Arthritic Changes Neurological: Cranial nerves II-XII grossly intact, Neuro grossly intact Microbiology Past 72 Hours 01/29/21 15:25 Blood Culture (Wb) #2 - Anticubital Left Blood Culture - Preliminary No growth in 48 hours. 01/29/21 15:25 Blood Culture (Wb) - Anticubital Right Blood Culture - Preliminary No growth in 48 hours. 01/29/21 19:15 Mucosa - Nasopharyngeal Respiratory Panel (PCR) - Final 01/29/21 19:00 Urine Catheter - Barraza Legionella Antigen - Final 01/29/21 19:00 Urine Catheter - Barraza Streptococcus pneumoniae Antigen (M - Final 01/29/21 15:30 Mucosa - Nose SARS-CoV-2 Antigen (Rapid) - Final Current Medications Acetaminophen (Acetaminophen 325 Mg Tablet) 650 mg PO Q6H PRN PRN PRN Reason: Pain Score 1-10/Temp > 100.7 F Last Admin: 01/30/21 21:40 Dose: 650 mg Documented by: Al Hydroxide/Mg Hydroxide (Mag Hydrox/Al Hydrox/Simeth 30 Ml Udc) 30 ml PO Q6H PRN PRN PRN Reason: Gastric Burning Albuterol Sulfate (Albuterol 2.5 Mg/3 Ml Vial.Neb.) 2.5 mg INHALATION Q2H PRN PRN PRN Reason: Dyspnea, wheezing Albuterol/Ipratropium (Ipratropium/Albuterol Sulfate 3 Ml Ampul.Neb) 3 ml INHALATION Q4HWA.RT [facility] Last Admin: 01/31/21 10:45 Dose: 3 ml Documented by: Aspirin (Aspirin E.C. 81 Mg Tablet) [facility] Last Admin: 01/31/21 07:06 Dose: 81 mg Documented by: Carvedilol (Carvedilol 6.25 Mg Tablet) 6.25 mg PO BID [facility] Last Admin: 01/31/21 09:06 Dose: 6.25 mg Documented by: Clopidogrel Bisulfate (Clopidogrel Bisulfate 75 Mg Tablet) 75 mg PO DAILY [facility] Last Admin: 01/31/21 07:06 Dose: 75 mg Documented by: Enoxaparin Sodium (Enoxaparin 40 Mg/0.4 Ml Syringe) 40 mg SC DAILY [facility] Last Admin: 01/31/21 09:07 Dose: 40 mg Documented by: Famotidine (Famotidine 20 Mg Tablet) 20 mg PO DAILY [facility] Furosemide (Furosemide 20 Mg/2 Ml Vial) 20 mg IV BID@1000,1800 [facility] Last Admin: 01/31/21 10:14 Dose: Not Given Documented by: Guaifenesin (Guaifenesin 10 Ml Udc (200mg/10ml)) 10 ml PO Q4H PRN PRN PRN Reason: COUGH Hydralazine HCl (Hydralazine 20 Mg/Ml Vial) 10 mg IV Q4H PRN PRN PRN Reason: SBP > 160 Sodium Chloride () 250 mls @ 15 mls/hr IV .[id number] PRN PRN Reason: Saline Flush Sodium Chloride () 250 mls @ 15 mls/hr IV .[id number] PRN PRN Reason: Additional IVPB Infusion Sodium Chloride () 1,000 mls @ 0 mls/hr IV .Q0M [facility] Lorazepam (Lorazepam 2 Mg/Ml Syringe) 0.5 mg IV Q6H PRN PRN PRN Reason: anxiety with BIPAP Magnesium Hydroxide (Magnesium Hydroxide 30 Ml Udc) 30 ml PO DAILY PRN PRN PRN Reason: Constipation Nitroglycerin (Nitroglycerin (Inpatient Use) 0.4 Mg Tab.Subl) 0.4 mg SL Q5M PRN PRN Reason: CARDIAC/CHEST PAIN Ondansetron HCl (Ondansetron 4 Mg/2 Ml Vial) 4 mg IV Q8H PRN PRN PRN Reason: NAUSEA/VOMITING Last Admin: 01/29/21 20:13 Dose: 4 mg Documented by: Prochlorperazine Edisylate (Prochlorperazine 10 Mg/2 Ml Vial) 5 mg IV Q4H PRN PRN PRN Reason: Breakthrough Nausea/Vomiting Psyllium Hydrophilic Mucilloid (Psyllium 1 Packet) 1 packet PO DAILY PRN PRN PRN Reason: Constipation Senna/Docusate Sodium (Senna/Docusate Sodium 1 Tablet) 2 tablet PO BID PRN PRN Reason: Constipation Sodium Chloride (0.9% Saline Lock 10 Ml Syringe) 10 - 40 ml IV UD PRN PRN Reason: SALINE FLUSH Last Admin: 01/30/21 17:25 Dose: 10 ml Documented by: Throat Lozenges (Benzocaine/Menthol 1 Lozenge) 1 lozenge MUCOUS MEM Q2H PRN PRN PRN Reason: SORE THROAT STROKE Vital Signs/Narrative: Vital Signs Temp Pulse Resp BP Pulse Ox 01/31/21 16:00 98.2 F 94 16 108/77 94 01/31/21 15:00 93 Medical Necessity - Tobacco Use Smoking Status: Current every day smoker Tobacco Use: Cigarettes Assessment/Plan All Active Problems (Last Updated 01/31/21 @ 09:25 by Mirta Worley) Acute exacerbation of CHF (congestive heart failure) (Acute) Acute respiratory failure with hypoxia and hypercapnia (Acute) Acute hypoxic respiratory failure secondary to decompensated HFrEF -Resolving -Has history of nonischemic cardiomyopathy but patient's cardiac catheterization today shows significant coronary disease -O2 has been weaned to 3 L nasal cannula -Continue to wean as able -40 mg of IV Lasix given after cardiac catheterization today -We will discontinue scheduled Lasix and convert to Bumex 1 mg daily secondary to patient's complaint of increased shortness of breath with scheduled Lasix dose -Cardiac catheterization done today and shows elevated left ventricular end- diastolic pressure, severe LV dysfunction, EF of 15% and multivessel CAD -Continue to optimize and await bed at [facility] for revascularization -Patient has ICD in place -Appreciate cardiology input Multivessel CAD -Per discussion with cardiology will need high risk PCI versus CABG -Discussed with Dr. Lewis at [facility] and he has accepted her for transfer -Currently awaiting bed -Continue aspirin, Coreg 6.25 mg twice daily, Plavix 75 mg daily -Restart ARB if blood pressure remains stable and serum creatinine remained stable -Start low-dose statin as LDL is 113 Hypertension -Continue diuretics -Continue Coreg -Restart losartan if BP allows and creatinine remained stable Insulin resistance -Hemoglobin A1c is 5.8 -Continue dietary modifications New mitral valve insufficiency -May be contributing to decompensated heart failure -Continue diuresis -This is new as compared to last echocardiogram History of tobacco dependency -Suspect patient likely has COPD at baseline that is complicating cardiac presentation -We will need PFTs as an outpatient -She did tell the hand salter that she would not follow-up as an outpatient as long as she had to wear a mask -Follow-up with outpatient pulmonary as patient will allow History of anxiety/panic attacks -Patient currently does not take any medication for this at baseline -Continue to monitor -May need to consider SSRI in the future Mild transaminitis -Suspect this is related to heart failure causing passive congestion -Repeat in a.m. Low TSH -Suspect euthyroid sick -Check a.m. free T4 DVT prophylaxis -Continue Lovenox daily Code status -DNR CCA no intubation Inpatient E&M: 54466 Subs Hosp L2
[2021-01-31] MEDS: Bumetanide 1 MG/4 ML Vial IV (17:43)
[2021-01-31] MEDS: 0.9% Saline Lock 10 ML Syringe IV (17:43)
[2021-01-31] MEDS: Acetaminophen 325 MG Tablet 650 MG PO (21:11)
[2021-02-01 01:15] VITALS: BP 127/89; PULSE 86; RESP 12; TEMP 36.7; O2SAT 94
--- NOTE | 2021-02-01 03:13 | NURSING ---
Gave report to Leslie Orozco from [facility]. Pt leaving [facility] shortly w/ belongings. Report also called to [facility] to FRANK Gonzalez. FRANK Rowe.
--- NOTE | 2021-02-01 16:41 | PCM.DC.SUM ---
Discharge Date and Diagnosis - Problem List Patient Problems: Active and Suspected Problems (Last Updated 01/31/21 @ 09:25 by Mirta Worley) Acute exacerbation of CHF (congestive heart failure) (Acute) Acute respiratory failure with hypoxia and hypercapnia (Acute) Date of Admission: 01/29/21 Date of Discharge: 02/01/21 - Primary Discharge Diagnosis Acute Problems: Active Problems (Last Updated 01/31/21 @ 09:25 by Mirta Worley) Acute exacerbation of CHF (congestive heart failure) (Acute) Acute respiratory failure with hypoxia and hypercapnia (Acute) - Secondary Discharge Diagnosis Chronic Problems: Chronic Problems (Last Updated 01/31/21 @ 09:25 by Mirta Worley) Atherosclerotic heart disease of [place] coronary artery without angina pectoris (Chronic) Hypertension (Chronic) Cardiomyopathy (Chronic) CAD (coronary artery disease) (Chronic) ICD (implantable cardioverter-defibrillator) in place (Chronic) Mitral valve disease (Chronic) Hospital Course and Treatment Imaging Results: STUDY: X-RAY CHEST REASON FOR EXAM: Female, 70 years old. dyspnea TECHNIQUE: AP COMPARISON: 10/15/2020 FINDINGS: EKG leads project over the chest. Three lead cardiac conduction device is seen via the left subclavian vein with lead tips projecting over the right atrium and right ventricle, respectively, with left atrial lead projecting over the left atrium/posterior cardiac border. Mild central pulmonary vascular congestion and interstitial thickenings along the periphery and in the lung bases suggesting edema, less severe as compared to the prior study. Trace bilateral pleural fluid. There is moderate cardiac enlargement. Normal mediastinum and sp. There is atherosclerotic calcification of the aortic arch with tortuosity. There is demineralization of the osseous structures. Normal visualized ribs, clavicles, and shoulders. There is no demonstrated abnormality of the visualized soft tissue structures of the upper abdomen. RAD/Chest 1 View (Portable) IMPRESSION: 1. Mild CHF/edema with trace pleural fluid but improved since 10/10/2020. STUDY: CTA CHEST REASON FOR EXAM: Female, 70 years old. dyspnea RADIATION DOSAGE (If Supplied By Facility): CTDIvol = ( 6.24 ) mGy, DLP = ( 214.09 ) mGycm TECHNIQUE: The examination was performed with the intravenous administration of IV 75mL Isovue-370. Post-processing of the angiographic images was performed, with multiplanar reformation and 3D reconstruction. Individualized dose optimization techniques were used for this CT. COMPARISON: 10/15/2020 FINDINGS: Normal enhancement of the main pulmonary artery and right and left pulmonary arteries. Normal enhancement of the bilateral peripheral pulmonary arteries. There is no demonstrated pulmonary embolism. Normal thoracic aorta and visualized great vessels. There is no demonstrated aortic dissection. There is cardiomegaly with left ventricular enlargement. Cardiac conduction device is stable. No pericardial effusion detected. Normal mediastinum. Normal hilar regions. There is peribronchial thickening. There are mucoid secretions in the dependent portion of the lower trachea. The lungs are under expanded. Multilobar interstitial thickening and groundglass opacities but no dense airspace consolidation. Small right and trace left pleural effusions. Normal chest wall structures. There are degenerative changes of thoracic spine. Normal visualized upper abdomen. CT/CTA Chest W/WO Contrast IMPRESSION: 1. No central or segmental pulmonary embolism. 2. CHF with interstitial edema, peribronchial thickening and right larger than left pleural effusions. Pleural effusions are decreased as compared to prior study. atient Name: TIFFANY CARDONA Study Date: 01/31/2021 Performing: Livan Phelps MD Ht: 61.02 inches 155 cm : 1950 Wt: 112.44 lbs 51 kg Age: 70 Gender: female BSA: 1.48 PROCEDURE(S) PERFORMED [id number]-[id number]/COR/LV CLINICAL PROFILE AND INDICATIONS Indications: Suspected CAD, Cardiomyopathy Heart Failure: NYHA Class: 3, Newly Diagnosed: No, Heart Failure Type: Systolic Stress/Imaging Stress/Image Study Performed: No Angina Classification Anginal Classification w/in 2 Weeks: Anginal Equivalent Dyspnea CAD Presentations: Non-STEMI. CONCLUSIONS Elevated Left Ventricular End Diastolic Pressure (mild) Segmented LV systolic dysfunction- Severe LVEF: by LV gram 15 % [place] Multivessel CAD Left to Right Collateral Flow RECOMMENDATIONS Risk factor modification Medical therapy Surgery consult for coronary revascularization DESCRIPTION OF PROCEDURE The patient arrived to the procedure lab. The risks and benefits of the procedure as well as a full description of our services here and current unavailability of surgical backup were fully explained to the patient and/or their significant other prior to the catheterization. The Timeout was completed, verifying the correct patient and procedure. The patient's procedural site was prepped and draped in the usual fashion. Local anesthetic was given subcutaneously to right radial region with Lidocaine 2%. Using a modified Seldinger technique, arterial access was obtained via the right radial artery, a 6Fr sheath was inserted. Right Coronary Artery selective angiography was then performed in multiple views using a 5 Fr. 4.0 [place] catheter. Left Coronary Artery selective angiography was performed in multiple views using a 5 Fr. 4.0 [place] catheter. Left Ventriculography was performed in [place]CTOR[place] projection using a 5 Fr. [place] catheter. LV to AO pullback pressures were then recorded.The arterial sheath was pulled and a TR Band was applied for hemostasis 12cc air CORONARY ANGIOGRAPHY DOMINANCE: Right Dominant LEFT HEART ASSESSMENT Left Ventricular Ejection Fraction: by LV Gram 15 % Anterior Hypokinesis - Severe. Inferior Basal Hypokinesis - Severe. Inferior Mid Akinesis. Apical Akinesis Elevated Left Ventricular End Diastolic Pressure LVEDP: 14 mmHg LEFT MAIN: Mild calcification, distal: 50 % Stenosis LEFT ANTERIOR DESCENDING ARTERY: PROX LAD: Moderate calcification, 99 % Stenosis MID LAD: Moderate calcification DISTAL LAD: 99 % Stenosis CIRCUMFLEX ARTERY: Mild luminal irregularities, diffuse: 25 % Stenosis OM 1: Proximal - 25 % Stenosis RAMUS: Mild luminal irregularities, 75 % Stenosis RIGHT CORONARY ARTERY: Mild calcification Mild luminal irregularities MID RCA: irregular: 85 % Stenosis DISTAL RCA: eccentric: 25 % Stenosis, 99 % Stenosis COLLATERAL FLOW: Collateral flow from Left to Right AORTIC ROOT: Angiographically normal COMPLICATIONS No Complications PROCEDURE MEDICATIONS Versed 1 mg IV Oxygen: 3 L/min via nasal cannula Heparin diluted in 23cc Heparinized saline. Patient given 10cc IA of this solution. 01/31/2021 07:44:33 Lasix 40 mg IV 01/31/2021 07:55:46 Zofran 4 mg IV 01/31/2021 07:34:40 SUMMARY OF HEMODYNAMIC DATA Time AIR REST ECG 07:26:03 AO 100/60 (77) SA 07:46:15 LV 121/-1, 15 07:53:08 LV 122/0, 14 07:53:14 LV 124/6, 23 07:54:01 LV 125/6, 20 07:54:07 LVp 128/5, 23 07:54:11 AOp 128/68 (91) 07:54:16 Signed By Livan Phelps MD On 01/31/2021 08:31:15 Signed By Livan Phelps MD On 01/31/2021 08:21:38 Livan Phelps MD Reason For Study: CHF Procedure This was a 2D Doppler, Color Flow transthoracic echocardiogram. The exam was of adequate technical quality. Exam performed portable in patient room. Left Ventricle Severely dilated left ventricle. Severe segmental systolic dysfunction (see wall motion). The estimated ejection fraction is 15 %. Diastolic function is indeterminate. Anterio-Basal: Hypokinetic. Lateral-Basal: Hypokinetic. Posterior-Basal: Hypokinetic. Infero-Basal: Hypokinetic. Basal inferoseptal: Akinetic. Basal anteroseptal: Severely Hypokinetic. Mid-Anterior : Akinetic. Mid-Lateral : Severely Hypokinetic. Mid-Posterior: Akinetic. Mid-Inferior: Akinetic. Mid- inferoseptal : Akinetic. Mid-anteroseptal : Akinetic. [place] : Akinetic. Right Ventricle Normal RV size. ICD or pacer leads identified within the right ventricle. Normal systolic function. Atria The left atrium is mildly enlarged. Normal right atrium. ICD or pacer leads identified within the right atrium. No doppler evidence for ASD. Mitral Valve There is no mitral annular calcification. Moderate diffuse mitral valve thickening. Mild papillary muscle dysfunction of the mitral valve. Moderate (2+) mitral valve insufficiency. Tricuspid Valve Normal tricuspid valve. Mild tricuspid valve insufficiency. Right ventricular systolic pressure estimated to be 31 mmHg. Aortic Valve Trisinus/trileaflet aortic valve. Moderate focal aortic valve calcification. Pulmonic Valve The pulmonic valve is not well visualized. Great Vessels Normal sized aortic root. Pericardium/Pleural Small pericardial effusion. There are no echocardiographic indications of cardiac tamponade. MMode/2D Measurements & Calculations LVIDd: 5.6 cm IVSd: 0.78 cm Ao root diam: 3.2 cm LVIDs: 5.3 cm LVPWd: 0.91 cm FS: 4.9 % LAV(MOD-bp): 45.7 ml EDV(MOD-sp4): 245.1 ml EDV(MOD-sp2): 262.7 ml LAV(MOD-bp) Indexed: 30.7 ml/m2 ESV(MOD-sp4): 216.3 ml EF(MOD-sp2): 21.2 % LAV(MOD-sp2): 69.3 ml EF(MOD-sp4): 11.7 % LAV(MOD-sp4): 28.2 ml SV(MOD-sp4): 28.8 ml SV(MOD-sp2): 55.8 ml LA A4 area: 12.7 cm2 LA dimension(2D): 4.4 cm RA A4 area: 9.7 cm2 Doppler Measurements & Calculations MV E max alberto: 106.2 cm/sec Lat Peak E' Alberto: 10.0 cm/sec Med Peak E' Alberto: 6.3 cm/sec E/E' lat: 10.6 E/E' med: 16.9 Ao V2 max: 127.4 cm/sec LV V1 max: 112.2 cm/sec PA V2 max: 84.4 cm/sec Ao max P.5 mmHg LV V1 max P.0 mmHg TR max alberto: 266.3 cm/sec TR max P.4 mmHg ECHO/Echo Complete Interpretation Summary Severely dilated left ventricle. Severe segmental systolic dysfunction (see wall motion). The estimated ejection fraction is 15 %. The left atrium is mildly enlarged. Moderate diffuse mitral valve thickening. Mild papillary muscle dysfunction of the mitral valve. Moderate (2+) mitral valve insufficiency. Mild tricuspid valve insufficiency. Moderate focal aortic valve calcification. Small pericardial effusion. There are no echocardiographic indications of cardiac tamponade. Right ventricular systolic pressure estimated to be 31 mmHg. Diastolic function is indeterminate. ICD or pacer leads identified within the right atrium ICD or pacer leads identified within the right ventricle. Cardiology Pulmonology Procedures: 2-D Echocardiogram, Cardiac catheterization Summary of Care Provided: Ms Cardona is a 70 year old WF with a past medical history of hypertension, CAD, nonischemic cardiomyopathy status post BiV ICD placement, and tobacco abuse who presented to the emergency room at [facility] on 01/29/2021 for shortness of breath. Upon admission she reported that the shortness of breath occurred with fairly sudden onset beginning the evening prior to admission. She had worsening symptoms throughout the day presentation. She denied weight gain or increase in lower extremity swelling but had not been taking her previous Chuck prescribed losartan and Lasix as she felt she had some many side effects related to them. Upon admission she required BiPAP for hypoxemia but was pulling the mask away from her face frequently. She also had an extensive history of tobacco abuse and suspected COPD. A CTA was performed and showed no evidence of pulmonary embolism but did show interstitial thickening and groundglass opacities bilaterally. She also had notable pleural effusions. She was treated with aerosols, IV steroids, and IV Lasix and admitted to the intensive care unit. She improved significantly over the night and was weaned to 4 L nasal cannula and was able to be transferred out of the ICU. She was evaluated by cardiology on 01/30/2021 and given her symptoms a cardiac catheterization was recommended. She was taken to the [facility] on 01/31/2021 and this showed elevated left ventricular end-diastolic pressure, segmented LV dysfunction that was severe, an EF of 15%, [place] multivessel coronary disease with left to right collateral flow. Dr. Phelps felt it was imperative that she be transferred to the [facility] for either high risk PCI versus CABG. I discussed the case with Dr. Lewis that [facility] and he accepted the patient for transfer. She was transferred early this morning in stable condition. Patient will need follow-up pulmonary function test as an outpatient as I suspect she has point COPD at baseline and while this contributes to her shortness of breath was not the admitting etiology. Discharge diagnoses Acute hypoxic respiratory failure secondary to decompensated HFrEF Decompensated HFrEF Multivessel's coronary artery disease Hypertension Insulin resistance-hemoglobin A1c was 5.8 New mitral valve insufficiency Tobacco dependency Suspected COPD Mild transaminitis Low TSH History of anxiety Panic attacks Patient Problems: Active and Suspected Problems (Last Updated 01/31/21 @ 09:25 by Mirta Worley) Acute exacerbation of CHF (congestive heart failure) (Acute) Acute respiratory failure with hypoxia and hypercapnia (Acute) - Physical Exam Vitals/I&O's: Vital Signs Temp Pulse Resp BP Pulse Ox 98.1 F 86 12 127/89 H 94 02/01/21 01:15 02/01/21 01:15 02/01/21 01:15 02/01/21 01:15 02/01/21 01:15 Oxygen Flow Rate (L/min) 3 Oxygen Delivery Method Room Air Weight: 51 kg Body Mass Index (BMI) 23.3 Intake and Output for Last 24 Hours 01/30/21 01/31/21 02/01/21 23:59 23:59 23:59 Intake Total 1270 / 1270 840 / 1040 200 / 200 Output Total 2925 / 2925 2850 / 4150 1300 / 1300 Balance -1655 / -1655 -2010 / -3110 -1100 / -1100 Microbiology Past 72 Hours 01/29/21 15:25 Blood Culture (Wb) #2 - Anticubital Left Blood Culture - Preliminary No growth in 48 hours. 01/29/21 15:25 Blood Culture (Wb) - Anticubital Right Blood Culture - Preliminary No growth in 48 hours. 01/29/21 19:15 Mucosa - Nasopharyngeal Respiratory Panel (PCR) - Final 01/29/21 19:00 Urine Catheter - Barraza Legionella Antigen - Final 01/29/21 19:00 Urine Catheter - Barraza Streptococcus pneumoniae Antigen (M - Final 01/29/21 15:30 Mucosa - Nose SARS-CoV-2 Antigen (Rapid) - Final Home Medications: Medications to take at Discharge Aspirin E.C. [Ecotrin] 81 mg PO DAILY #30 tab 10/17/20 Carvedilol [Coreg (Beta Erin)] 6.25 mg PO BID #0 10/17/20 Furosemide [Lasix] 20 mg PO PRN PRN 01/29/21 Guaifenesin [Mucinex] 1,200 mg PO DAILY 01/29/21 Primary Care Physician: Care Physician,No Primary [Primary Care Provider] - Medical Necessity - Tobacco Use Smoking Status: Current every day smoker Tobacco Use: Cigarettes Meaningful Use Info Meaningful Use Diagnoses (Choose all that apply): CHF - CHF FLAVIO/ARB ordered at discharge?: No Reason FLAVIO/ARB not ordered?: Hypotension Documented LVEF (%): 15
== END 2021-02-01 03:15 | disposition short-term general hospital (02) | DRG 280 ==
LOC: ED 16:11 → ICU 17:52 → PCU 01-30 13:36
PROVIDERS: Internal Medicine; Admitting Provider Family Medicine; Emergency Provider Emergency Medicine; Visit Provider Internal Medicine
DX: I11.0 Hypertensive heart disease with heart failure (principal); I21.4 Non-ST elevation (NSTEMI) myocardial infarction; J96.01 Acute respiratory failure with hypoxia; J96.02 Acute respiratory failure with hypercapnia; J44.1 Chronic obstructive pulmonary disease with (acute) exacerbation; I50.43 Acute on chronic combined systolic (congestive) and diastolic (congestive) heart failure; I27.20 Pulmonary hypertension, unspecified; I25.10 Atherosclerotic heart disease of native coronary artery without angina pectoris; I34.0 Nonrheumatic mitral (valve) insufficiency; I42.8 Other cardiomyopathies; E88.81 Metabolic syndrome and other insulin resistance; Z20.822 Contact with and (suspected) exposure to COVID-19; E78.5 Hyperlipidemia, unspecified; F41.0 Panic disorder [episodic paroxysmal anxiety]; F17.210 Nicotine dependence, cigarettes, uncomplicated; Z91.14 Patient's other noncompliance with medication regimen; Z79.82 Long term (current) use of aspirin; Z79.899 Other long term (current) drug therapy; I25.2 Old myocardial infarction; Z95.810 Presence of automatic (implantable) cardiac defibrillator
CPT/HCPCS: 71045; 71275; 80048; 80053; 80061; 82962; 83036; 83735; 83880; 84145; 84443; 84484; 85025; 85379; 87040; 87426; 87449; 87633; 93005; 93306; 93458; 94002; 94003; 94640; 94667; 94668; 97161; 97165; 99152; 99153; 99251; 99285; 99406; Q9967; A4216; C1769; C1894; G0463; J1940; J2405

== ENCOUNTER 2021-02-28 10:30 | Emergency (ER) | payer MEDICARE, SELFPAY ==
[2021-01-29 18:44] VITALS: BMI 23.3
[2021-02-28 10:31] VITALS: BP 143/93; PULSE 98; RESP 16; TEMP 36.6; O2SAT 98; BMI 21.3
--- NOTE | 2021-02-28 10:50 | EKG12_ITS ---
Test Reason : GEN ILLNESS Blood Pressure : / mmHG Vent. Rate : 084 BPM Atrial Rate : 084 BPM P-R Int : 104 ms QRS Dur : 186 ms QT Int : 432 ms P-R-T Axes : 015 -30 113 degrees QTc Int : 510 ms Atrial-sensed ventricular-paced rhythm Biventricular pacemaker detected Abnormal ECG Confirmed by NICHOLAS ALCARAZ, SENG ([id number]), newspaper or periodical editor HILL JERNIGAN ([id number]) on 03/03/2021 1:28:10 PM Referred By: CANDIDA Confirmed By:SENG PETERSON MD
--- NOTE | 2021-02-28 10:51 | EDS_ITS ---
HPI History of Present Illness Chief Complaint: General Illness Narrative Narrative: Patient is here because she think she is having a reaction to a statin. She woke up this morning with palpitations. She states she just does not feel like her normal self. She states that her symptoms are now improving. She is not having any chest pain, shortness of breath. She is able to ambulate without any symptoms. She was on a statin at one point and caused all the symptoms. She is now taking rosuvastatin as they have switched her from any other statins. She denies any tongue swelling, throat closing sensation. No rashes have been seen. She denies any muscle aches or weakness. [facility] Medical History Atherosclerotic heart disease of [place] coronary artery without angina pectoris Home Medications aspirin 81 mg PO DAILY #30 tab 10/17/20 [Rx Last Taken Unknown] furosemide 20 mg PO PRN PRN 01/29/21 [History Last Taken Unknown] guaifenesin 1,200 mg PO DAILY PRN 01/29/21 [History Last Taken Unknown] carvedilol 3.14 mg PO BID 02/28/21 [History Last Taken Unknown] hydralazine 10 mg PO TID 02/28/21 [History Last Taken Unknown] isosorbide mononitrate 5 mg PO TID 02/28/21 [History Last Taken Unknown] rosuvastatin 5 mg PO DAILY 02/28/21 [History Last Taken Unknown] Allergy/AdvReac Type Severity Reaction Status Date / Time Sulfa (Sulfonamide Allergy Rash Verified 02/28/21 10:33 Antibiotics) amoxicillin AdvReac Other Verified 02/28/21 10:33 Surgical History History of left heart catheterization (LHC) (~01/31/21) Social History Smoking Status: Current some day smoker ROS ROS ED Constitutional Constitutional ED: Denies chills or fever(s) Eyes Eyes: Denies blurry vision, change in vision, diplopia or loss of vision ENT ENT ED: Reports other; Denies ear pain, rhinorrhea or sore throat Cardiovascular Cardiovascular: Reports palpitations Respiratory/Chest Respiratory/Chest: Denies cough, dyspnea, dyspnea on exertion or sputum Gastrointestinal Gastrointestinal: Denies abdominal pain, diarrhea, nausea or vomiting Genitourinary Genitourinary ED: Denies dysuria, hematuria or urinary frequency Musculoskeletal Musculoskeletal: Denies back pain, myalgias or neck pain Integumentary Denies abscess or rash Neurologic Neurologic: Denies headache(s) or weakness Psychiatric Psychiatric: Denies anxiety or depression Endocrine Endocrinology: Denies polydipsia or polyuria Hematologic/Lymphatic Hematologic/Lymphatic: Denies easy bleeding or easy bruising Allergic/Immunologic Allergic/Immunologic ED: Denies urticaria EXAM Physical Exam Const Vital Signs: 02/28/21 10:31 02/28/21 10:39 Temperature 97.8 F Temperature Source Temporal Pulse Rate 98 Respiratory Rate 16 Respiratory Effort Normal Non-Labored Respiratory Pattern Normal Blood Pressure 143/93 H Blood Pressure Mean 109 Pulse Ox 98 Oxygen Delivery Method Room Air Positive well nourished and well developed General Appearance ED: well developed and NAD HEENT Reports moist mucous membranes normocephalic and atraumatic; Negative for tenderness Eyes PERRL and EOMs intact bilaterally Neck supple and no JVD Chest Wall Chest: Negative for tenderness Resp normal respiratory effort and clear to auscultation bilaterally Effort and Inspection: Negative for respiratory distress Cardio regular rate, regular rhythm and no murmurs Rate: regular rate Rhythm: regular rhythm GI soft to palpation, non-tender and non-distended Palpation: soft Back/Spine no CVA tenderness and no thoracic nor lumbar tenderness Cervical Spine: Negative for cervical spine tenderness Extremity normal to inspection and full ROM General Extremety ED: Negative for tenderness Neuro oriented x3, CN's II-XII intact bilaterally and no sensory deficits noted Sensorium / Orientation: awake and alert Motor Exam: strength 5/5 throughout Psych mental status grossly normal Skin no rashes or lesions noted MDM MDM MDM Narrative Medical decision making narrative: The patient's EKG had some changes which were concerning however, this is unchanged from a previous EKG that was performed in January. She had a cardiac catheterization at that time which showed multivessel disease but nothing occlusive at that time. She is having no chest pain or s hortness of breath currently. She is having no symptoms as she is feeling much better. This could be a reaction to the rosuvastatin that she is taking. I recommended she call her doctor and discuss stopping this medication. She feels that some anxiety exacerbated her symptoms at home. She would like to be discharged home to follow-up with her PCP. Discharge Plan Triage Chief Complaint: General Illness ED Provider: Aron Teresa Dx/Rx/DC Orders Clinical Impression: Heart palpitations, Adverse reaction to drug Instructions: ED Palpitations Prescriptions: No Action aspirin 81 MG tablet 81 mg PO DAILY Qty: 30 RF: 0 guaifenesin 1,200 MG tablet extended release 12hr 1,200 mg PO DAILY PRN (Reason: Congestion) RF: 0 furosemide 40 MG tablet 20 mg PO PRN PRN (Reason: Sob &/Or Wheezing) RF: 0 isosorbide mononitrate 10 mg Tablet 5 mg PO TID RF: 0 rosuvastatin 5 mg Tablet 5 mg PO DAILY RF: 0 carvedilol 12.5 MG tablet 3.14 mg PO BID RF: 0 hydralazine 10 mg Tablet 10 mg PO TID RF: 0 Primary Care Provider: Care Physician,No Primary Referrals: Livan Phelps MD [STAFF PHYSICIAN] - Care Physician,No Primary [Primary Care Provider] - Disposition Disposition: Home, self care
[2021-02-28 11:48] VITALS: BP 138/89; PULSE 72; RESP 15; O2SAT 96
== END 2021-02-28 11:49 | disposition home or self-care (01) ==
LOC: ED 11:37
PROVIDERS: Emergency Provider Emergency Medicine
DX: R00.2 Palpitations (principal); I25.10 Atherosclerotic heart disease of native coronary artery without angina pectoris; Z79.82 Long term (current) use of aspirin; Z79.899 Other long term (current) drug therapy
CPT/HCPCS: 93005; 99282

== ENCOUNTER 2021-04-06 20:01 | Inpatient (IN) | payer MEDICARE, SELFPAY ==
[2021-04-06] VITALS (11 sets, daily range): BP systolic 104–145; BP diastolic 74–110; PULSE 20–136; RESP 14–33; TEMP 35.8–36.8; O2SAT 68–100; BMI 22.8; BMI 21.6
--- NOTE | 2021-04-06 20:06 | EKG12_ITS ---
Test Reason : CP Blood Pressure : / mmHG Vent. Rate : 145 BPM Atrial Rate : 044 BPM P-R Int : 000 ms QRS Dur : 160 ms QT Int : 312 ms P-R-T Axes : 063 -09 102 degrees QTc Int : 484 ms Ventricular-paced rhythm Biventricular pacemaker detected Abnormal ECG Confirmed by JUSTIN ALCARAZ, SHILPI ([id number]), business editor HILL JERNIGAN ([id number]) on 04/08/2021 10:46:56 A M Referred By: WALE/CANDIDA Confirmed By:ADOLFO ANDERSON MD
--- NOTE | 2021-04-06 20:08 | ED.VIS.DYS ---
HPI History of Present Illness Chief Complaint: Shortness of Breath Informant: patient and EMS Narrative Narrative: Patient presents with shortness of breath. She has been short of breath for the past day. She states is worse with exertion. She denies any chest pain. No leg swelling. She admits to history of CHF but denies any history of COPD. She quit smoking about 2 months ago. She denies any fevers currently but had a fever earlier in the week. That same day she did receive her Covid vaccination. EMS was called and they had her pulse ox in the 80s on room air. They placed her on oxygen and gave her a breathing treatment. [facility] Medical History Atherosclerotic heart disease of [place] coronary artery without angina pectoris Home Medications aspirin 81 mg PO DAILY #30 tab 10/17/20 [Rx Last Taken Unknown] furosemide 10 mg PO PRN PRN 01/29/21 [History Last Taken Unknown] guaifenesin [Mucinex] 1,200 mg PO DAILY PRN 01/29/21 [History Last Taken Unknown] carvedilol 3.14 mg PO BID 02/28/21 [History Last Taken Unknown] hydralazine 10 mg PO TID 02/28/21 [History Last Taken Unknown] isosorbide mononitrate 5 mg PO TID 02/28/21 [History Last Taken Unknown] Allergy/AdvReac Type Severity Reaction Status Date / Time Sulfa (Sulfonamide Allergy Rash Verified 04/06/21 20:08 Antibiotics) amoxicillin AdvReac Other Verified 04/06/21 20:08 Surgical History History of left heart catheterization (LHC) (~01/31/21) Social History Smoking Status: Former smoker ROS ROS ED Constitutional Constitutional ED: Denies chills or fever(s) Eyes Eyes: Denies blurry vision, change in vision or diplopia ENT ENT ED: Denies ear pain, rhinorrhea or sore throat Cardiovascular Cardiovascular: Denies chest pain or palpitations Respiratory/Chest Respiratory/Chest: Reports dyspnea Gastrointestinal Gastrointestinal: Denies abdominal pain, diarrhea, nausea or vomiting Genitourinary Genitourinary ED: Denies dysuria, hematuria or urinary frequency Musculoskeletal Musculoskeletal: Denies back pain or neck pain Integumentary Denies change in pigmentation or rash Neurologic Neurologic: Denies headache(s), numbness or weakness Psychiatric Psychiatric: Denies anxiety or depression Endocrine Endocrinology: Denies polydipsia or polyuria EXAM Physical Exam Const Vital Signs: 04/06/21 20:01 04/06/21 20:02 04/06/21 20:19 Temperature 97.3 F L 97 F L Temperature Source Temporal Temporal Pulse Rate 128 H 123 H 130 H Respiratory Rate 31 H 28 H 30 H Respiratory Effort Short of Breath Labored Respiratory Depth Shallow Respiratory Pattern Tachypnea Blood Pressure 145/106 H Blood Pressure Mean 119 Pulse Ox 93 68 86 Oxygen Delivery Method Non-Rebreather Room Air Non-Rebreather Oxygen Flow Rate (L/min) 15 15 Fraction of Inspired Oxygen (FIO2) 04/06/21 20:33 04/06/21 20:41 04/06/21 21:02 Temperature 97.3 F L Temperature Source Temporal Pulse Rate 128 H 135 H Respiratory Rate 31 H 33 H Respiratory Effort Short of Breath Labored Accessory Muscle Use Respiratory Depth Respiratory Pattern Tachypnea Tachypnea Blood Pressure 145/110 H 136/97 H Blood Pressure Mean 121 110 Pulse Ox 93 90 Oxygen Delivery Method Non-Rebreather Bi-pap Oxygen Flow Rate (L/min) 15 Fraction of Inspired Oxygen (FIO2) 90 Positive well nourished and well developed Constitutional Narrative: In some mild respiratory distress General Appearance ED: well developed HEENT Reports moist mucous membranes atraumatic; Negative for tenderness Eyes PERRL and EOMs intact bilaterally Neck no lymphadenopathy and supple Resp Resp Narrative: Patient has rhonchi throughout. She is tachypneic. Mild accessory muscle usage Cardio regular rhythm and no murmurs Rate: tachycardic GI non-tender and non-distended Palpation: soft Back/Spine no CVA tenderness and normal to inspection Extremity normal to inspection General Extremety ED: Negative for edema General Extremity: Negative for edema Neuro oriented x3 and CN's II-XII intact bilaterally Sensorium / Orientation: alert Motor Exam: strength 5/5 throughout Psych mental status grossly normal Skin Lesions: no lesions Rashes: no rashes MDM MDM MDM Narrative Medical decision making narrative: The patient was hypoxic on room air. She was placed on nasal cannula oxygen and then escalated to a nonrebreather. I then placed her on BiPAP but she was much more comfortable with this. Her white blood cell count is 10.6, creatinine 0.98, troponin is 0.158. She has elevated troponins all the way back to 2011, likely due to her chronic heart failure and heart issues. Her lactate is 4.8. Chest x-ray does show evidence of multifocal pulmonary opacities which could be edema or infection. I gave her Lasix as well as vancomycin and aztreonam. Her ABG did show acute respiratory acidosis with a pH of 7.07 and a PCO2 of 72. The BiPAP will help with this. Patient was discussed with hospitalist for admission to the hospital. Lab Data Labs: Laboratory Results - last 24 hr 04/06/21 04/06/21 04/06/21 20:21 20:21 20:21 WBC 10.6 RBC 4.65 Hgb 14.4 Hct 45.2 MCV 97.2 MCH 31.0 MCHC 31.9 L RDW Std Deviation 50.6 H RDW Coeff of Toby 14.1 Plt Count 259 MPV 10.9 Immature Gran % (Auto) 0.500 Neut % (Auto) 72.4 H Lymph % (Auto) 17.5 L [place] % (Auto) 8.1 Eos % (Auto) 0.8 Baso % (Auto) 0.7 Absolute Neuts (auto) 7.7 Absolute Lymphs (auto) 1.86 Nucleated RBC % 0 Sodium 135 L Potassium 3.7 Chloride 101 Carbon Dioxide 25.0 Anion Gap 9 BUN 11 Creatinine 0.98 Estim Creat Clear Calc 42.25 Est GFR (MDRD) Af Amer 72 Est GFR (MDRD) Non-Af 59 L BUN/Creatinine Ratio 11.2 Glucose 242 H Lactic Acid 4.8 H* Calcium 9.1 Troponin I 0.158 H B-Natriuretic Peptide 04/06/21 20:21 WBC RBC Hgb Hct MCV MCH MCHC RDW Std Deviation RDW Coeff of Toyb Plt Count MPV Immature Gran % (Auto) Neut % (Auto) Lymph % (Auto) [place] % (Auto) Eos % (Auto) Baso % (Auto) Absolute Neuts (auto) Absolute Lymphs (auto) Nucleated RBC % Sodium Potassium Chloride Carbon Dioxide Anion Gap BUN Creatinine Estim Creat Clear Calc Est GFR (MDRD) Af Amer Est GFR (MDRD) Non-Af BUN/Creatinine Ratio Glucose Lactic Acid Calcium Troponin I B-Natriuretic Peptide 3093.2 H ABG Data ABG results: ABG 04/06/21 20:44 Specimen Type ART Sample Site R Radial pH 7.08 L* Bicarbonate Actual 21.2 L Total CO2 23 Base Excess -9 L O2 Saturation 75 L ABG pCO2 72.0 H* ABG pO2 56 L Carroll Test Positive O2 Delivery Device AeroMask Liter Flow 8.0 Crit Call To/Read Back Yes Blood Gas Notified Whom Radiography Diagnostic Testing: Radiology Impression Chest X-Ray 04/06/21 20:20 IMPRESSION: Diffuse multifocal pulmonary opacities may represent edema versus infection as clinically indicated. Electronically Signed: Jaylen Venegas MD at 20:56 EDT Tel , Service support , Critical Care Time Critical Care Time: Yes Critical care time (excluding procedures): 30-74 minutes (35 minutes), Discussing w/Patient &/or Family/Historiography Teacher, Arranging Admission or Transfer and Performing Direct Patient Care at Bedside Discharge Plan Triage Chief Complaint: Shortness of Breath ED Provider: Aron Teresa Dx/Rx/DC Orders Clinical Impression: Acute respiratory failure with hypoxia and hypercapnia, Acute exacerbation of CHF (congestive heart failure), HCAP (healthcare-associated pneumonia) Prescriptions: No Action aspirin 81 MG tablet 81 mg PO DAILY Qty: 30 RF: 0 Mucinex 1,200 MG tablet extended release 12hr 1,200 mg PO DAILY PRN (Reason: Congestion) RF: 0 furosemide 40 MG tablet 10 mg PO PRN PRN (Reason: Sob &/Or Wheezing) RF: 0 isosorbide mononitrate 10 mg Tablet 5 mg PO TID RF: 0 carvedilol 12.5 MG tablet 3.14 mg PO BID RF: 0 hydralazine 10 mg Tablet 10 mg PO TID RF: 0 Primary Care Provider: Care Physician,No Primary Referrals: Care Physician,No Primary [Primary Care Provider] - Disposition Disposition: [facility]
[2021-04-06] MEDS: Albuterol 2.5 MG/3 ML VIAL.NEB. INHALATION ×3 (20:19→20:32)
--- NOTE | 2021-04-06 20:20 | RAD_ITS ---
STUDY: X-RAY CHEST REASON FOR EXAM: Female, 70 years old. Shortness of breath TECHNIQUE: Single frontal view of the chest. COMPARISON: 01/29/21 FINDINGS: Left cardiac device. Diffuse multifocal pulmonary opacities prominently right-sided. There is no demonstrated pleural abnormality. There is mild cardiac enlargement. Normal mediastinum and sp. Normal visualized pulmonary arteries. Normal visualized aortic arch and descending thoracic aorta. Normal visualized thoracic spine. Normal visualized ribs, clavicles, and shoulders. There is no demonstrated abnormality of the visualized soft tissue structures of the upper abdomen. RAD/Chest 1 View (Portable) IMPRESSION: Diffuse multifocal pulmonary opacities may represent edema versus infection as clinically indicated. Electronically Signed: Jaylen Venegas MD at 20:56 EDT Tel , Service support ,
[2021-04-06 20:34] LABS: Absolute Lymphocyte Count 1.86 X10^3/uL (0.83-4.51); Absolute Neutrophil Count 7.7 X10^3/uL (2.0-7.7); Basophil# 0.07 X10^3/uL; Basophil% 0.7 % (0-1); Eosinophil# 0.08 X10^3/uL; Eosinophils% 0.8 % (0-5); Hematocrit 45.2 % (37-47); Hemoglobin 14.4 g/dL (12.0-15.0); Lymphocyte # 1.86 X10^3/ul (0.83-4.51); Lymphocyte % 17.5 % (19-41); Mean Corp Hgb Conc 31.9 g/dL (32-36); Mean Corpuscular Volume 97.2 fL (81-99); Mean Platelet Vol. 10.9 fl (6.2-12.0); Monocyte# 0.86 X10^3/uL; Monocyte% 8.1 % (0-10); NRBC Flagged by Analyzer 0 % (0-5); Neutrophil # 7.69 X10^3/uL (2.7-7.7); Neutrophil % 72.4 % (47-70); Platelet Count 259 K/mm3 (150-450); RBC Distribution Width CV 14.1 % (11.6-14.6); RBC Distribution Width SD 50.6 fl (35.1-43.9); Red Blood Count 4.65 M/mm3 (4.2-5.4); White Blood Count 10.6 K/mm3 (4.4-11.0)
[2021-04-06 20:47] LABS: BNP,B-Type NATRIURETIC PEPTIDE 3093.2 pg/mL (0-100)
[2021-04-06 20:51] LABS: Allen Test Positive; Base Excess -9 mmol/L (-2 to +2); Bicarbonate 21.2 mmol/L (22-26); Blood Gas Specimen Type ART; O2 Delivery Device AeroMask; PO2 56 mmHG (75-100); SITE R Radial; SO2 75 % (95-99); Total Carbon Dioxide 23 mmol/L; pH 7.08 (7.35-7.45)
[2021-04-06 20:57] LABS: Anion Gap 9 (5-15); BUN 11 mg/dL (7-18); BUN/Creat Ratio 11.2 RATIO (10-20); Calcium,Total 9.1 mg/dL (8.5-10.1); Chloride 101 mmol/L (98-107); Creatinine, Serum 0.98 mg/dL (0.55-1.02); EST Glomerular Filtration Rate 59 mL/min (>60); Est Glom Filt Rate - Afr Amer 72 mL/min (>60); Estimated Creatinine Clearance 42.25 ml/min; Glucose 242 mg/dL (74-106); Potassium 3.7 mmol/L (3.5-5.1); Sodium Level 135 mmol/L (136-145)
[2021-04-06 21:02] LABS: Lactic Acid 4.8 mmol/L (0.4-1.9)
[2021-04-06] MEDS: Furosemide 40 MG/4 ML Vial IV (21:08)
--- NOTE | 2021-04-06 21:39 | HP.PCM.HOS_ITS ---
HPI - General General Date of Admission: 04/06/21 HPI Narrative TIFFANY CARDONA, is a 70 F with a significant history of congestive heart failure who presents to emergency department with shortness of breath that started a day before presentation. Associated with her symptom is occasional dry cough that she does to clear her throat. The patient/family reports home low-grade temperature of about 99.4 in the setting of his baseline temperature being between 97-98 F. She reports chills. Patient reports paroxysmal nocturnal dyspnea. She denies orthopnea. Of note patient had a one-time [employer] Covid vaccination 3 days before presentation. Of note patient was admitted on 01/29/2021 and discharged on 02/01/2021. He was treated for acute exacerbation of CHF and acute respiratory failure with hypoxia and hypercapnia.Catheterization at that time showed negative multivessel coronary disease. Patient was transferred to [facility] for PCI versus CABG. [facility] Medical History (Updated 04/06/21 @ 23:22 by Dulce Maria Vazquez) Anxiety Atherosclerotic heart disease of [place] coronary artery without angina pectoris Congestive heart failure (CHF) Coronary artery disease Depression Former smoker Hypertension ICD (implantable cardioverter-defibrillator) in place Pacemaker Home Medications aspirin 81 mg PO DAILY #30 tab 10/17/20 [Rx Last Taken Unknown] furosemide 10 mg PO PRN PRN 01/29/21 [History Last Taken Unknown] guaifenesin [Mucinex] 1,200 mg PO DAILY PRN 01/29/21 [History Last Taken Unknown] carvedilol 3.14 mg PO BID 02/28/21 [History Last Taken Unknown] hydralazine 10 mg PO TID 02/28/21 [History Last Taken Unknown] isosorbide mononitrate 5 mg PO TID 02/28/21 [History Last Taken Unknown] Allergy/AdvReac Type Severity Reaction Status Date / Time Sulfa (Sulfonamide Allergy Rash Verified 04/06/21 20:08 Antibiotics) amoxicillin AdvReac Other Verified 04/06/21 20:08 Family History Other Heart disease Surgical History History of left heart catheterization (LHC) (~01/31/21) Social History Smoking Status: Former smoker ROS ROS Narrative 12 point review of system is negative except as stated in HPI. Vital Signs Vital Signs Vital Signs: 04/06/21 20:01 04/06/21 20:02 04/06/21 20:19 Temperature 97.3 F L 97 F L Temperature Source Temporal Temporal Pulse Rate 128 H 123 H 130 H Respiratory Rate 31 H 28 H 30 H Respiratory Effort Short of Breath Labored Respiratory Depth Shallow Respiratory Pattern Tachypnea Blood Pressure 145/106 H Blood Pressure Mean 119 Pulse Ox 93 68 86 Oxygen Delivery Method Non-Rebreather Room Air Non-Rebreather Oxygen Flow Rate (L/min) 15 15 Fraction of Inspired Oxygen (FIO2) 04/06/21 20:33 04/06/21 20:41 04/06/21 21:02 Temperature 97.3 F L Temperature Source Temporal Pulse Rate 128 H 135 H Respiratory Rate 31 H 33 H Respiratory Effort Short of Breath Labored Accessory Muscle Use Respiratory Depth Respiratory Pattern Tachypnea Tachypnea Blood Pressure 145/110 H 136/97 H Blood Pressure Mean 121 110 Pulse Ox 93 90 Oxygen Delivery Method Non-Rebreather Bi-pap Oxygen Flow Rate (L/min) 15 Fraction of Inspired Oxygen (FIO2) 90 04/06/21 21:26 04/06/21 21:32 Temperature 96.4 F L 98.3 F Temperature Source Temporal Temporal Pulse Rate 109 H 108 H Respiratory Rate 16 24 H Respiratory Effort Respiratory Depth Respiratory Pattern Blood Pressure 111/76 111/76 Blood Pressure Mean 87 87 Pulse Ox 98 98 Oxygen Delivery Method Room Air Bi-pap Oxygen Flow Rate (L/min) Fraction of Inspired Oxygen (FIO2) 90 Weight Weight: 56.5 kg Body Mass Index (BMI) 22.8 Physical Exam Narrative Physical exam: General: Well-nourished, well-developed, no acute distress Head: Normocephalic, atraumatic, no tenderness Eyes: PERRLA, EOMI ENT, no trauma, moist mucous membranes, no rhinorrhea Neck: Nontender, full range of motion, no spinal tenderness, deformities, step- off CVS: Tachycardia and rhythm Respiratory: Tachypnea; coarse;mild wheezes Abdomen: Soft, nontender, nondistended, normal bowel sounds, no masses : Deferred Back: Nontender, no CVA tenderness, no midline spinal tenderness, deformities, step-offs Extremities: Nontender full range of motion, no trauma Skin: Normal color, no trauma, abrasions Neuro: Alert, oriented, cranial nerves II through XII grossly intact. Results Lab / Micro Data Result Diagrams: 04/06/21 20:21 04/06/21 20:21 Labs: Laboratory Results - last 24 hr 04/06/21 04/06/21 04/06/21 20:21 20:21 20:21 WBC 10.6 RBC 4.65 Hgb 14.4 Hct 45.2 MCV 97.2 MCH 31.0 MCHC 31.9 L RDW Std Deviation 50.6 H RDW Coeff of Toby 14.1 Plt Count 259 MPV 10.9 Immature Gran % (Auto) 0.500 Neut % (Auto) 72.4 H Lymph % (Auto) 17.5 L [place] % (Auto) 8.1 Eos % (Auto) 0.8 Baso % (Auto) 0.7 Absolute Neuts (auto) 7.7 Absolute Lymphs (auto) 1.86 Nucleated RBC % 0 Sodium 135 L Potassium 3.7 Chloride 101 Carbon Dioxide 25.0 Anion Gap 9 BUN 11 Creatinine 0.98 Estim Creat Clear Calc 42.25 Est GFR (MDRD) Af Amer 72 Est GFR (MDRD) Non-Af 59 L BUN/Creatinine Ratio 11.2 Glucose 242 H Lactic Acid 4.8 H* Calcium 9.1 Troponin I 0.158 H B-Natriuretic Peptide 04/06/21 20:21 WBC RBC Hgb Hct MCV MCH MCHC RDW Std Deviation RDW Coeff of Toby Plt Count MPV Immature Gran % (Auto) Neut % (Auto) Lymph % (Auto) [place] % (Auto) Eos % (Auto) Baso % (Auto) Absolute Neuts (auto) Absolute Lymphs (auto) Nucleated RBC % Sodium Potassium Chloride Carbon Dioxide Anion Gap BUN Creatinine Estim Creat Clear Calc Est GFR (MDRD) Af Amer Est GFR (MDRD) Non-Af BUN/Creatinine Ratio Glucose Lactic Acid Calcium Troponin I B-Natriuretic Peptide 3093.2 H Micro: Microbiology 04/06/21 20:10 SARS-CoV-2 Antigen (Rapid) - Final Mucosa - Nose ABG Data ABG results: ABG 04/06/21 20:44 Specimen Type ART Sample Site R Radial pH 7.08 L* Bicarbonate Actual 21.2 L Total CO2 23 Base Excess -9 L O2 Saturation 75 L ABG pCO2 72.0 H* ABG pO2 56 L Carroll Test Positive O2 Delivery Device AeroMask Liter Flow 8.0 Crit Call To/Read Back Yes Blood Gas Notified Whom Radiology Impression Chest X-Ray 04/06/21 20:20 IMPRESSION: Diffuse multifocal pulmonary opacities may represent edema versus infection as clinically indicated. Electronically Signed: Jaylen Venegas MD at 20:56 EDT Tel , Service support , Assessment & Plan Assessment/Plan (1) Heart failure with reduced ejection fraction: (2) HCAP (healthcare-associated pneumonia): (3) Sepsis: QUALIFIERS: Sepsis acute organ dysfunction status: unspecified Sepsis type: sepsis due to unspecified organism Qualified Code(s): A41.9 - Sepsis, unspecified organism PLAN: Acute Exacerbation of heart failure with reduced ejection fraction Status post ICD. Place on monitored bed on PCU Weight on admission to the floor; and then daily Strict I&O's Radiologist impression of chest x-ray:Diffuse multifocal pulmonary opacities may represent edema versus infection as clinically indicated. Actual chest x-ray image was independently interpreted. I agree with radiologist interpretation. Also previous chest x- ray was reviewed. Previous chest x-ray with congestion but current chest x-ray appears worsened. EKG independently reviewed confirms ventricular paced rhythm with PVCs. Emergency department labs reviewed showed BNP of 3093.2. Old records reviewed shows BNP on 01/30/2008/10/2021 was more than 5000; and on 10/15/2020 was 4573 Lasix 40 mg IV twice daily ordered. Review of records show that echocardiogram was performed on 01/30/2021. That echocardiogram showed estimated ejection fraction of 15%. Moderate mitral valve insufficiency. Mild papillary muscle dysfunction of the mitral valve. Right ventricular systolic pressure was 31 mmHg. Monitor electrolytes and renal function Trend blood pressure Carvedilol; hydralazine and isosorbide continued. We will start patient on low-dose lisinopril. Titrate diuretics and heart failure/blood pressure medications with blood pressure. Fluid restriction of 1500 mls daily Cardiac diet Severe Sepsis secondary to pneumonia. Gram-positive or gram-negative. SIRS criteria: Heart rate of more than 90; Respiratory rate of more than 20. Ch est x-ray with opacities. Lactic acid of 4.8. Overall it appears more likely that patient has heart failure with reduced ejection fraction. However will treat for severe sepsis secondary to pneumonia at this time. Will check procalcitonin. Received vancomycin and aztreonam at the emergency department and will continue. Lactic acid could be secondary to hypoxemia. Emergency department labs reviewed showed normal white count but with neutrophilia and no bandemia. Acute hypoxemic and hypercapnic respiratory failure pH of 7.08. PCO2 of 72. PO2 of 56. Placed on BiPAP at emergency department and continued. Treatment of severe sepsis and heart failure as above. Prediabetes Glucose of 242 on BMP. Likely secondary to stress. Review of records show the A1c 01/29/2021 was 5.8. Glucose of BMP at that time was 310. Elevated troponin Troponin on presentation was 0.158. Review of old records showed chronically elevated troponin. Present troponin is way lower than previous. Trend tro ponin. Chest x-ray with ventricular paced rhythm and PVCs. Likely demand ischemia. DVT prophylaxis Subcutaneous Lovenox Charges/Coding Visit Charges Inpatient E&M: 31169 Init Hosp L3
[2021-04-06 23:34] LABS: Procalcitonin 0.08 ng/mL (0.00-0.09)
[2021-04-07] VITALS (14 sets, daily range): BP systolic 93–113; BP diastolic 61–78; PULSE 85–100; RESP 14–18; TEMP 36.3–36.8; O2SAT 94–100
--- NOTE | 2021-04-07 00:20 | PCM.RX.CS ---
Consult Pharmacy has been consulted to manage selected antiobiotic: Vancomycin Type of Consult: New start Labs: Sodium 135 mmol/L (136-145) L 04/06/21 20:21 Potassium 3.7 mmol/L (3.5-5.1) 04/06/21 20:21 Chloride 101 mmol/L (98-107) 04/06/21 20:21 Carbon Dioxide 25.0 mmol/L (21.0-32.0) 04/06/21 20:21 Anion Gap 9 (5-15) 04/06/21 20:21 BUN 11 mg/dL (7-18) 04/06/21 20:21 Creatinine 0.98 mg/dL (0.55-1.02) 04/06/21 20:21 Est GFR (MDRD) Af Amer 72 mL/min (>60) 04/06/21 20:21 Est GFR (MDRD) Non-Af 59 mL/min (>60) L 04/06/21 20:21 BUN/Creatinine Ratio 11.2 RATIO (10-20) 04/06/21 20:21 Glucose 242 mg/dL (74-106) H 04/06/21 20:21 Microbiology: Microbiology 04/06/21 23:43 Urine, Clean Catch Legionella Antigen - Final 04/06/21 23:43 Urine, Clean Catch Streptococcus pneumoniae Antigen (M - Final 04/06/21 20:10 Mucosa - Nose SARS-CoV-2 Antigen (Rapid) - Final Weight used for dosin.3 kg Estimated Creatinine Clearance: 41.86 Goal Trough: 15-20 mcg/mL Pharmacy Plan for Drug Dosing: Pharmacy Service will continue to monitor and adjust dosing as required. Medications Vancomycin HCl (Vancomycin) 1,000 mg in 200 mls @ 200 mls/hr IV Q24H TAMERA Discontinued Medications Vancomycin HCl 750 mg/ Sodium (Chloride) 265 mls @ 250 mls/hr IV X1 ONE Stop: 04/06/21 22:08 Last Admin: 04/06/21 23:32 Dose: Infused Documented by: Follow-Up Labs: Trough Vancomycin Labs to be done on [date and time ordered]: 04/08 @ 3681
--- NOTE | 2021-04-07 00:22 | EKG12_ITS ---
Test Reason : ELEV TROP Blood Pressure : / mmHG Vent. Rate : 087 BPM Atrial Rate : 087 BPM P-R Int : 102 ms QRS Dur : 180 ms QT Int : 438 ms P-R-T Axes : 035 -46 107 degrees QTc Int : 527 ms Atrial-sensed ventricular-paced rhythm Abnormal ECG When compared with ECG of 28-FEB-2021 11:16, Vent. rate has increased BY 3 BPM Confirmed by JUSTIN ALCARAZ, SHILPI ([id number]), newspaper copy editor HILL JERNIGAN ([id number]) on 04/08/2021 10:48:10 A M Referred By: KRIS Confirmed By:ADOLFO ANDERSON MD
[2021-04-07 00:28] LABS: Reflex Lactate? Y
[2021-04-07] MEDS: Enoxaparin 60 MG/0.6 ML Syringe 50 MG SC ×3 (00:28→21:20)
[2021-04-07 01:11] LABS: Lactic Acid 1.3 mmol/L (0.4-1.9)
[2021-04-07 02:20] LABS: M R Staph aureus DNA By PCR Negative (Negative); Probe Check PASS; Specimen Processing Control PASS
[2021-04-07 02:43] LABS: Absolute Lymphocyte Count 0.69 X10^3/uL (0.83-4.51); Absolute Neutrophil Count 9.1 X10^3/uL (2.0-7.7); Basophil# 0.02 X10^3/uL; Basophil% 0.2 % (0-1); Hematocrit 37.2 % (37-47); Hemoglobin 12.4 g/dL (12.0-15.0); Lymphocyte # 0.69 X10^3/ul (0.83-4.51); Lymphocyte % 6.4 % (19-41); Mean Corp Hgb Conc 33.3 g/dL (32-36); Mean Corpuscular Hgb 31.2 pg (27.0-32.0); Mean Corpuscular Volume 93.5 fL (81-99); Mean Platelet Vol. 10.4 fl (6.2-12.0); Monocyte# 0.97 X10^3/uL; NRBC Flagged by Analyzer 0 % (0-5); Neutrophil # 9.09 X10^3/uL (2.7-7.7); Platelet Count 208 K/mm3 (150-450); RBC Distribution Width CV 13.8 % (11.6-14.6); RBC Distribution Width SD 46.9 fl (35.1-43.9); Red Blood Count 3.98 M/mm3 (4.2-5.4); White Blood Count 10.8 K/mm3 (4.4-11.0)
[2021-04-07 03:05] LABS: Anion Gap 7 (5-15); BUN 12 mg/dL (7-18); Calcium,Total 8.2 mg/dL (8.5-10.1); Chloride 105 mmol/L (98-107); Creatinine, Serum 0.71 mg/dL (0.55-1.02); EST Glomerular Filtration Rate 87 mL/min (>60); Est Glom Filt Rate - Afr Amer 105 mL/min (>60); Glucose 133 mg/dL (74-106); Potassium 3.5 mmol/L (3.5-5.1); Sodium Level 139 mmol/L (136-145)
[2021-04-07] MEDS: Isosorbide Mononitrate 20 MG Tablet 5 MG PO ×3 (05:36→21:25)
[2021-04-07] MEDS: hydrALAZINE 10 MG Tablet PO (05:36)
--- NOTE | 2021-04-07 09:46 | CON.PCM.CA_ITS ---
Assessment & Plan Assessment/Plan (1) Acute exacerbation of CHF (congestive heart failure): QUALIFIERS: Heart failure type: systolic Qualified Code(s): I50.23 - Acute on chronic systolic (congestive) heart failure PLAN: continue currrent management. We may be able to switch to lasix 20mg PO daily from tomorrow. Pt. was on as needed dose of lasix at home. (2) Atherosclerotic heart disease of [place] coronary artery without angina pectoris: QUALIFIERS: [place] vs. transplanted heart: [place] heart Qualified Code(s): I25.10 - Atherosclerotic heart disease of [place] coronary artery without angina pectoris PLAN: At [facility], it was felt that patient was not a candidate for CABG or PCI. Elevated T-I likely secondary to severe underlying CAD and hypercapnic respiratory failure on presentation. Continue medical Tx. Reasonable to continue therapeutic dose of lovenox for another day. Pt. is reluctantly willing to consider a second opinion at [facility] for her CAD. She would like to discuss this with Dr. Phelps as an outpatient before proceeding. HPI Consult Data Date of Consult: 04/07/21 HPI Narrative Reason for Consultation: elevated troponin HPI Narrative: TIFFANY CARDONA, is a 70 F who presents with shortness of breath. Patient was found to have hypercapnic respiratory failure with O2 sat of 85% on room air. Her pH was 7.08. Patient was started on BiPAP, admitted to the PCU and was started on IV Lasix for CHF in addition to antibiotics for possible pneumonia. She had Covid vaccination 3 days back and had low grade fever on presentation. Her T-I went up to 12. Over night she has done well and is feeling better this morning. Pt. has h/o cardiomyopathy and has an AICD. In 2011, she was found to have low EF and cath at that time showed non obstructive CAD. In January of 2021, she had a cath again and was found to have severe multivessel CAD. She was referred to [facility] and was felt not to be a candidate for surgery or PCI. It appears that LVAD was discussed with patient and she preferred not to have it. She is on medical treatment for CAD and LV dysfunction at this time. [facility] Medical History (Updated 04/07/21 @ 09:[address] Kyrie Lemos MD) Anxiety Atherosclerotic heart disease of [place] coronary artery without angina pectoris Congestive heart failure (CHF) Coronary artery disease Depression Former smoker Hypertension ICD (implantable cardioverter-defibrillator) in place Pacemaker Home Medications aspirin 81 mg PO DAILY #30 tab 10/17/20 [Rx Last Taken 04/06/21] furosemide 10 mg PO PRN PRN 01/29/21 [History Last Taken Unknown] guaifenesin [Mucinex] 1,200 mg PO DAILY PRN 01/29/21 [History Last Taken Unknown] carvedilol 3.14 mg PO BID 02/28/21 [History Last Taken 04/06/21 07:00] hydralazine 10 mg PO TID 02/28/21 [History Last Taken 04/06/21 13:30] isosorbide mononitrate 5 mg PO TID 02/28/21 [History Last Taken 04/06/21 13:30] Allergy/AdvReac Type Severity Reaction Status Date / Time Sulfa (Sulfonamide Allergy Rash Verified 04/06/21 20:08 Antibiotics) amoxicillin AdvReac Other Verified 04/06/21 20:08 Family History Other Heart disease Surgical History History of left heart catheterization (LHC) (~01/31/21) Social History Smoking Status: Former smoker Physical Exam Const alert and oriented x3 Orientation / Consciousness: awake HEENT normocephalic Eyes no scleral icterus Neck supple Chest inspection of chest normal Resp Auscultation: crackles bilateral Cardio regular rate, S1 normal heart sound and S2 normal heart sound Extremity no pedal edema Skin no rashes or lesions noted Neuro oriented x3 Psych mental status grossly normal Charges/Coding Visit Charges Inpatient E&M: 18775 Init Hosp L3 Objective Data Vital Signs: Vital Signs Temp Pulse Resp BP Pulse Ox 97.8 F 90 16 104/73 100 04/07/21 05:30 04/07/21 07:15 04/07/21 05:30 04/07/21 05:30 04/07/21 05:30 Oxygen Flow Rate (L/min) 15 Oxygen Delivery Method Bi-pap Weight: 116 lb 13.52 oz Body Mass Index (BMI) 21.6 Intake & Output: Intake and Output for Last 24 Hours 04/05/21 04/06/21 04/07/21 23:59 23:59 23:59 Intake Total 365 / 365 340 / 340 Output Total 1150 / 1150 Balance 365 / 365 -810 / -810 Lab / Micro Data Result Diagrams: 04/07/21 02:35 04/07/21 02:35 Labs: Laboratory Results - last 24 hr 04/06/21 04/06/21 04/06/21 20:21 20:21 20:21 WBC 10.6 RBC 4.65 Hgb 14.4 Hct 45.2 MCV 97.2 MCH 31.0 MCHC 31.9 L RDW Std Deviation 50.6 H RDW Coeff of Toby 14.1 Plt Count 259 MPV 10.9 Immature Gran % (Auto) 0.500 Neut % (Auto) 72.4 H Lymph % (Auto) 17.5 L Thomas % (Auto) 8.1 Eos % (Auto) 0.8 Baso % (Auto) 0.7 Absolute Neuts (auto) 7.7 Absolute Lymphs (auto) 1.86 Nucleated RBC % 0 Sodium 135 L Potassium 3.7 Chloride 101 Carbon Dioxide 25.0 Anion Gap 9 BUN 11 Creatinine 0.98 Estim Creat Clear Calc 42.25 Est GFR (MDRD) Af Amer 72 Est GFR (MDRD) Non-Af 59 L BUN/Creatinine Ratio 11.2 Glucose 242 H Lactic Acid 4.8 H* Calcium 9.1 Troponin I 0.158 H B-Natriuretic Peptide Procalcitonin MRSA (PCR) 04/06/21 04/06/21 04/06/21 20:21 22:15 23:24 WBC RBC Hgb Hct MCV MCH MCHC RDW Std Deviation RDW Coeff of Toby Plt Count MPV Immature Gran % (Auto) Neut % (Auto) Lymph % (Auto) Thomas % (Auto) Eos % (Auto) Baso % (Auto) Absolute Neuts (auto) Absolute Lymphs (auto) Nucleated RBC % Sodium Potassium Chloride Carbon Dioxide Anion Gap BUN Creatinine Estim Creat Clear Calc Est GFR (MDRD) Af Amer Est GFR (MDRD) Non-Af BUN/Creatinine Ratio Glucose Lactic Acid Calcium Troponin I 3.080 H* B-Natriuretic Peptide 3093.2 H Procalcitonin 0.08 MRSA (PCR) 04/07/21 04/07/21 04/07/21 00:40 00:45 02:35 WBC 10.8 RBC 3.98 L Hgb 12.4 Hct 37.2 MCV 93.5 MCH 31.2 MCHC 33.3 RDW Std Deviation 46.9 H RDW Coeff of Toby 13.8 Plt Count 208 MPV 10.4 Immature Gran % (Auto) 0.400 Neut % (Auto) 84.0 H Lymph % (Auto) 6.4 L Thomas % (Auto) 9.0 Eos % (Auto) 0.0 Baso % (Auto) 0.2 Absolute Neuts (auto) 9.1 H Absolute Lymphs (auto) 0.69 L Nucleated RBC % 0 Sodium Potassium Chloride Carbon Dioxide Anion Gap BUN Creatinine Estim Creat Clear Calc Est GFR (MDRD) Af Amer Est GFR (MDRD) Non-Af BUN/Creatinine Ratio Glucose Lactic Acid 1.3 Calcium Troponin I B-Natriuretic Peptide Procalcitonin MRSA (PCR) Negative 04/07/21 04/07/21 04/07/21 02:35 02:35 06:06 WBC RBC Hgb Hct MCV MCH MCHC RDW Std Deviation RDW Coeff of Toby Plt Count MPV Immature Gran % (Auto) Neut % (Auto) Lymph % (Auto) Thomas % (Auto) Eos % (Auto) Baso % (Auto) Absolute Neuts (auto) Absolute Lymphs (auto) Nucleated RBC % Sodium 139 Potassium 3.5 Chloride 105 Carbon Dioxide 27.0 Anion Gap 7 BUN 12 Creatinine 0.71 Estim Creat Clear Calc 39.50 Est GFR (MDRD) Af Amer 105 Est GFR (MDRD) Non-Af 87 BUN/Creatinine Ratio 17.0 Glucose 133 H Lactic Acid Calcium 8.2 L Troponin I 10.100 H* 12.100 H* B-Natriuretic Peptide Procalcitonin MRSA (PCR) Micro: Microbiology 04/06/21 23:43 Urine, Clean Catch Legionella Antigen - Final 04/06/21 23:43 Urine, Clean Catch Streptococcus pneumoniae Antigen (M - Fin al 04/06/21 20:10 Mucosa - Nose SARS-CoV-2 Antigen (Rapid) - Final ABG Data ABG results: ABG 04/06/21 20:44 Specimen Type ART Sample Site R Radial pH 7.08 L* Bicarbonate Actual 21.2 L Total CO2 23 Base Excess -9 L O2 Saturation 75 L ABG pCO2 72.0 H* ABG pO2 56 L Carroll Test Positive O2 Delivery Device AeroMask Liter Flow 8.0 Crit Call To/Read Back Yes Blood Gas Notified Whom Cardiology Labs/Tests 04/06/21 20:21: WBC 10.6, RBC 4.65, Hgb 14.4, Hct 45.2, MCV 97.2, MCH 31.0, MCHC 31.9 L, Plt Count 259, MPV 10.9, Immature Gran % (Auto) 0.500, Neut % (Auto) 72.4 H, Lymph % (Auto) 17.5 L, Thomas % (Auto) 8.1, Eos % (Auto) 0.8, Baso % (Auto) 0.7, Absolute Neuts (auto) 7.7, Nucleated RBC % 0 04/06/21 20:21: Sodium 135 L, Potassium 3.7, Chloride 101, Carbon Dioxide 25.0, Anion Gap 9, BUN 11, Creatinine 0.98, Est GFR (MDRD) Af Amer 72, Est GFR (MDRD) Non-Af 59 L, BUN/Creatinine Ratio 11.2, Glucose 242 H, Calcium 9.1, Troponin I 0.158 H 04/06/21 20:21: Lactic Acid 4.8 H* 04/06/21 20:21: B-Natriuretic Peptide 3093.2 H 04/06/21 20:44: pH 7.08 L*, Bicarbonate Actual 21.2 L, Base Excess -9 L, O2 Saturation 75 L, ABG pCO2 72.0 H*, ABG pO2 56 L, Carroll Test Positive 04/06/21 23:24: Troponin I 3.080 H* 04/07/21 00:40: Lactic Acid 1.3 04/07/21 02:35: WBC 10.8, RBC 3.98 L, Hgb 12.4, Hct 37.2, MCV 93.5, MCH 31.2, MCHC 33.3, Plt Count 208, MPV 10.4, Immature Gran % (Auto) 0.400, Neut % (Auto) 84.0 H, Lymph % (Auto) 6.4 L, Thomas % (Auto) 9.0, Eos % (Auto) 0.0, Baso % (Auto) 0.2, Absolute Neuts (auto) 9.1 H, Nucleated RBC % 0 04/07/21 02:35: Sodium 139, Potassium 3.5, Chloride 105, Carbon Dioxide 27.0, Anion Gap 7, BUN 12, Creatinine 0.71, Est GFR (MDRD) Af Amer 105, Est GFR (MDRD) Non-Af 87, BUN/Creatinine Ratio 17.0, Glucose 133 H, Calcium 8.2 L 04/07/21 02:35: Troponin I 10.100 H* 04/07/21 06:06: Troponin I 12.100 H* Rhythm: EKG: ECHO: Stress Test: Cardiac Cath: PCI: CT Surgery: Holter monitor: EPS: PPM: CXR: Chest CT Scan: Radiography Diagnostic Testing: Radiology Impression Chest X-Ray 04/06/21 20:20 IMPRESSION: Diffuse multifocal pulmonary opacities may represent edema versus infection as clinically indicated. Electronically Signed: Jaylen Venegas MD at 20:56 EDT Tel , Service support ,
--- NOTE | 2021-04-07 09:51 | CON.PCM.CC_ITS ---
Assessment & Plan Assessment/Plan (1) Acute exacerbation of CHF (congestive heart failure): QUALIFIERS: Heart failure type: systolic Qualified Code(s): I50.23 - Acute on chronic systolic (congestive) heart failure PLAN: RECOMMENDATIONS: 1. Continue primary medical management per cardiology recommendations. 2. Wean supplemental oxygen to maintain saturations at or above 90%. 3. Perform walking oximetry study prior to consideration for discharge home. 4. Antimicrobials can be discontinued from my perspective. 5. Encourage incentive spirometer use and mobilize patient as tolerated. 6. Will sign off from a pulmonary perspective. Please call with any additional questions. IMPRESSIONS: 1. Acute hypoxemic respiratory failure Secondary to acute decompensated heart failure. The patient responded to IV diuretic therapy and noninvasive positive pressure ventilatory support. She has improved significantly from a respiratory perspective. She denies the presence of a cough. At this time, I would recommend discontinuing antimicrobials. I do believe that the patient's presenting lactic acidemia was secondary to her hypoxemia, as opposed to an acute occult infection. I will defer additional medical management to the patient's cardiology team. She can likely be transitioned to room air at this time. I would perform a walking oximetry study prior to consideration for discharge home. Encourage incentive spirometer use and mobilize patient as tolerated. 2. History of tobacco dependency The patient did report having had some form of PFT completed at [facility] and was apparently told that she had healthy lungs. I do not have any of this documentation to confirm this assertion. However, the patient does report that she quit smoking completely approximately 3 months ago. Ongoing tobacco cessation was strongly recommended. 3. History of anxiety/panic attacks/hypertension Complicates care, management, recovery and prognosis. Continue home medications as indicated. This note was generated with [employer] software. It may contain incorrect words, spelling, and punctuation that were not noted in checking the note before signing. HPI Consult Data Date of Consult: 04/07/21 HPI Narrative Reason for Consultation: Acute hypoxemic respiratory failure HPI Narrative: The patient is a 70-year-old female, with a history as outlined below, who presented to the emergency department on April 06 with complaints of shortness of breath. Per EMS documentation, the patient was noted to be 85% on room air upon their arrival. The patient was last admitted to the hospital January 29 with acute decompensated heart failure. Surface echocardiogram obtained at that time revealed an ejection fraction of approximately 15%. Cardiac catheterization revealed segmental LV systolic dysfunction which was s evere along with [place] multivessel coronary artery disease. It was recommended that the patient be referred for possible multivessel PCI versus high risk CABG. The patient was subsequently transferred to the [facility] at that time.According to the patient, she was evaluated but was not felt to be a great surgical candidate other than for possible LVAD. The patient declined t his therapy. She does not utilize supplemental oxygen at her baseline. [facility] Medical History (Updated 04/07/21 @ 09:[address] Kyrie Lemos MD) Anxiety Atherosclerotic heart disease of [place] coronary artery without angina pectoris Congestive heart failure (CHF) Coronary artery disease Depression Former smoker Hypertension ICD (implantable cardioverter-defibrillator) in place Pacemaker Home Medications aspirin 81 mg PO DAILY #30 tab 10/17/20 [Rx Last Taken 04/06/21] furosemide 10 mg PO PRN PRN 01/29/21 [History Last Taken Unknown] guaifenesin [Mucinex] 1,200 mg PO DAILY PRN 01/29/21 [History Last Taken Unknown] carvedilol 3.14 mg PO BID 02/28/21 [History Last Taken 04/06/21 07:00] hydralazine 10 mg PO TID 02/28/21 [History Last Taken 04/06/21 13:30] isosorbide mononitrate 5 mg PO TID 02/28/21 [History Last Taken 04/06/21 13:30] Allergy/AdvReac Type Severity Reaction Status Date / Time Sulfa (Sulfonamide Allergy Rash Verified 04/06/21 20:08 Antibiotics) amoxicillin AdvReac Other Verified 04/06/21 20:08 Family History Other Heart disease Surgical History History of left heart catheterization (LHC) (~01/31/21) Social History Smoking Status: Former smoker ROS Constitutional Constitutional: Denies chills, fatigue or fever(s) Eyes Eyes: Denies blurry vision or change in vision ENT HEENT: Denies dizziness, epistaxis or headache(s) Cardiovascular Cardiovascular: Reports dyspnea; Denies chest pain or edema Respiratory/Chest Respiratory/Chest: Reports dyspnea; Denies cough Gastrointestinal Gastrointestinal: Denies abdominal pain, diarrhea, nausea or vomiting Genitourinary Genitourinary: Denies difficulty urinating or dysuria Musculoskeletal Musculoskeletal: Denies arthralgias or back pain Integumentary Integumentary: Denies lesions, rash or skin ulcer Neurologic Neurologic: Denies abnormal gait or abnormal speech Psychiatric Psychiatric: Reports anxiety Endocrine Endocrinology: Denies fatigue or polydipsia Hematologic/Lymphatic Hematologic/Lymphatic: Denies easy bleeding or easy bruising Physical Exam Const alert and no apparent distress Constitutional Narrative: Currently maintaining appropriate oxygen saturations on 2 L/min. General Appearance: cooperative and well developed HEENT normocephalic, head/scalp atraumatic and moist oral mucous membranes Eyes PERRL, EOMs intact bilaterally and conjunctivae normal Neck supple General: trachea midline Resp normal respiratory effort and no use of accessory muscles Auscultation: diminished lung sounds; Negative for rales, rhonchi or wheezes Cardio regular rate and regular rhythm GI normal to inspection, nondistended, normoactive bowel sounds Extremity no clubbing, cyanosis or edema Skin no rashes or lesions noted Neuro oriented x3, CN's II-XII intact bilaterally and moves all extremities Psych Mood & Affect: anxious Lab / Micro Data Result Diagrams: 04/07/21 02:35 04/07/21 02:35 Labs: Laboratory Results - last 24 hr 04/06/21 04/06/21 04/06/21 20:21 20:21 20:21 WBC 10.6 RBC 4.65 Hgb 14.4 Hct 45.2 MCV 97.2 MCH 31.0 MCHC 31.9 L RDW Std Deviation 50.6 H RDW Coeff of Toby 14.1 Plt Count 259 MPV 10.9 Immature Gran % (Auto) 0.500 Neut % (Auto) 72.4 H Lymph % (Auto) 17.5 L [place] % (Auto) 8.1 Eos % (Auto) 0.8 Baso % (Auto) 0.7 Absolute Neuts (auto) 7.7 Absolute Lymphs (auto) 1.86 Nucleated RBC % 0 Sodium 135 L Potassium 3.7 Chloride 101 Carbon Dioxide 25.0 Anion Gap 9 BUN 11 Creatinine 0.98 Estim Creat Clear Calc 42.25 Est GFR (MDRD) Af Amer 72 Est GFR (MDRD) Non-Af 59 L BUN/Creatinine Ratio 11.2 Glucose 242 H Lactic Acid 4.8 H* Calcium 9.1 Troponin I 0.158 H B-Natriuretic Peptide Procalcitonin MRSA (PCR) 04/06/21 04/06/21 04/06/21 20:21 22:15 23:24 WBC RBC Hgb Hct MCV MCH MCHC RDW Std Deviation RDW Coeff of Toby Plt Count MPV Immature Gran % (Auto) Neut % (Auto) Lymph % (Auto) [place] % (Auto) Eos % (Auto) Baso % (Auto) Absolute Neuts (auto) Absolute Lymphs (auto) Nucleated RBC % Sodium Potassium Chloride Carbon Dioxide Anion Gap BUN Creatinine Estim Creat Clear Calc Est GFR (MDRD) Af Amer Est GFR (MDRD) Non-Af BUN/Creatinine Ratio Glucose Lactic Acid Calcium Troponin I 3.080 H* B-Natriuretic Peptide 3093.2 H Procalcitonin 0.08 MRSA (PCR) 04/07/21 04/07/21 04/07/21 00:40 00:45 02:35 WBC 10.8 RBC 3.98 L Hgb 12.4 Hct 37.2 MCV 93.5 MCH 31.2 MCHC 33.3 RDW Std Deviation 46.9 H RDW Coeff of Toby 13.8 Plt Count 208 MPV 10.4 Immature Gran % (Auto) 0.400 Neut % (Auto) 84.0 H Lymph % (Auto) 6.4 L [place] % (Auto) 9.0 Eos % (Auto) 0.0 Baso % (Auto) 0.2 Absolute Neuts (auto) 9.1 H Absolute Lymphs (auto) 0.69 L Nucleated RBC % 0 Sodium Potassium Chloride Carbon Dioxide Anion Gap BUN Creatinine Estim Creat Clear Calc Est GFR (MDRD) Af Amer Est GFR (MDRD) Non-Af BUN/Creatinine Ratio Glucose Lactic Acid 1.3 Calcium Troponin I B-Natriuretic Peptide Procalcitonin MRSA (PCR) Negative 04/07/21 04/07/21 04/07/21 02:35 02:35 06:06 WBC RBC Hgb Hct MCV MCH MCHC RDW Std Deviation RDW Coeff of Toby Plt Count MPV Immature Gran % (Auto) Neut % (Auto) Lymph % (Auto) [place] % (Auto) Eos % (Auto) Baso % (Auto) Absolute Neuts (auto) Absolute Lymphs (auto) Nucleated RBC % Sodium 139 Potassium 3.5 Chloride 105 Carbon Dioxide 27.0 Anion Gap 7 BUN 12 Creatinine 0.71 Estim Creat Clear Calc 39.50 Est GFR (MDRD) Af Amer 105 Est GFR (MDRD) Non-Af 87 BUN/Creatinine Ratio 17.0 Glucose 133 H Lactic Acid Calcium 8.2 L Troponin I 10.100 H* 12.100 H* B-Natriuretic Peptide Procalcitonin MRSA (PCR) Micro: Microbiology 04/06/21 23:43 Legionella Antigen - Final Urine, Clean Catch 04/06/21 23:43 Streptococcus pneumoniae Antigen (M - Final Urine, Clean Catch 04/06/21 20:10 SARS-CoV-2 Antigen (Rapid) - Final Mucosa - Nose ABG Data ABG results: ABG 04/06/21 20:44 Specimen Type ART Sample Site R Radial pH 7.08 L* Bicarbonate Actual 21.2 L Total CO2 23 Base Excess -9 L O2 Saturation 75 L ABG pCO2 72.0 H* ABG pO2 56 L Carroll Test Positive O2 Delivery Device AeroMask Liter Flow 8.0 Crit Call To/Read Back Yes Blood Gas Notified Whom Radiology Impression Chest X-Ray 04/06/21 20:20 IMPRESSION: Diffuse multifocal pulmonary opacities may represent edema versus infection as clinically indicated. Electronically Signed: Jaylen Venegas MD at 20:56 EDT Tel , Service support , Charges/Coding Visit Charges Inpatient E&M: 78261 Init Hosp L3
[2021-04-07] MEDS: Potassium Chloride Oral Tablet 20 MEQ 40 MEQ PO (10:12)
[2021-04-07] MEDS: Furosemide 40 MG/4 ML Vial IV ×2 (10:12→17:23)
[2021-04-07] MEDS: Carvedilol 3.125 MG TABLET PO ×2 (10:12→22:21)
--- NOTE | 2021-04-07 10:12 | PN.HOSP_ITS ---
Subjective Subjective Patient for swelling generalized weakness and shortness of breath for last 3 days. Shortness of breath progressively getting worse. Her baseline temperature runs around 97 and she was 99.7 Fahrenheit at home. She denies chest pain. She also had J&J Covid vaccine on Sunday. Objective Data Objective Data Vital Signs: Vital Signs Temp Pulse Resp BP Pulse Ox 97.4 F L 85 17 110/78 99 04/07/21 10:08 04/07/21 10:08 04/07/21 10:08 04/07/21 10:08 04/07/21 10:08 Oxygen Flow Rate (L/min) 15 Oxygen Delivery Method Bi-pap Weight: 116 lb 13.52 oz Body Mass Index (BMI) 21.6 Intake & Output: Intake and Output for Last 24 Hours 04/05/21 04/06/21 04/07/21 23:59 23:59 23:59 Intake Total 365 / 365 340 / 340 Output Total 1150 / 1150 Balance 365 / 365 -810 / -810 Lab / Micro Data Result Diagrams: 04/07/21 02:35 04/07/21 02:35 Labs: Laboratory Results - last 24 hr 04/06/21 04/06/21 04/06/21 20:21 20:21 20:21 WBC 10.6 RBC 4.65 Hgb 14.4 Hct 45.2 MCV 97.2 MCH 31.0 MCHC 31.9 L RDW Std Deviation 50.6 H RDW Coeff of Toby 14.1 Plt Count 259 MPV 10.9 Immature Gran % (Auto) 0.500 Neut % (Auto) 72.4 H Lymph % (Auto) 17.5 L Stanly % (Auto) 8.1 Eos % (Auto) 0.8 Baso % (Auto) 0.7 Absolute Neuts (auto) 7.7 Absolute Lymphs (auto) 1.86 Nucleated RBC % 0 Sodium 135 L Potassium 3.7 Chloride 101 Carbon Dioxide 25.0 Anion Gap 9 BUN 11 Creatinine 0.98 Estim Creat Clear Calc 42.25 Est GFR (MDRD) Af Amer 72 Est GFR (MDRD) Non-Af 59 L BUN/Creatinine Ratio 11.2 Glucose 242 H Lactic Acid 4.8 H* Calcium 9.1 Troponin I 0.158 H B-Natriuretic Peptide Procalcitonin MRSA (PCR) 0604/06/21 04/06/21 20:21 22:15 23:24 WBC RBC Hgb Hct MCV MCH MCHC RDW Std Deviation RDW Coeff of Toby Plt Count MPV Immature Gran % (Auto) Neut % (Auto) Lymph % (Auto) Stanly % (Auto) Eos % (Auto) Baso % (Auto) Absolute Neuts (auto) Absolute Lymphs (auto) Nucleated RBC % Sodium Potassium Chloride Carbon Dioxide Anion Gap BUN Creatinine Estim Creat Clear Calc Est GFR (MDRD) Af Amer Est GFR (MDRD) Non-Af BUN/Creatinine Ratio Glucose Lactic Acid Calcium Troponin I 3.080 H* B-Natriuretic Peptide 3093.2 H Procalcitonin 0.08 MRSA (PCR) 04/07/21 04/07/21 04/07/21 00:40 00:45 02:35 WBC 10.8 RBC 3.98 L Hgb 12.4 Hct 37.2 MCV 93.5 MCH 31.2 MCHC 33.3 RDW Std Deviation 46.9 H RDW Coeff of Toby 13.8 Plt Count 208 MPV 10.4 Immature Gran % (Auto) 0.400 Neut % (Auto) 84.0 H Lymph % (Auto) 6.4 L Stanly % (Auto) 9.0 Eos % (Auto) 0.0 Baso % (Auto) 0.2 Absolute Neuts (auto) 9.1 H Absolute Lymphs (auto) 0.69 L Nucleated RBC % 0 Sodium Potassium Chloride Carbon Dioxide Anion Gap BUN Creatinine Estim Creat Clear Calc Est GFR (MDRD) Af Amer Est GFR (MDRD) Non-Af BUN/Creatinine Ratio Glucose Lactic Acid 1.3 Calcium Troponin I B-Natriuretic Peptide Procalcitonin MRSA (PCR) Negative 04/07/21 04/07/21 04/07/21 02:35 02:35 06:06 WBC RBC Hgb Hct MCV MCH MCHC RDW Std Deviation RDW Coeff of Toby Plt Count MPV Immature Gran % (Auto) Neut % (Auto) Lymph % (Auto) Stanly % (Auto) Eos % (Auto) Baso % (Auto) Absolute Neuts (auto) Absolute Lymphs (auto) Nucleated RBC % Sodium 139 Potassium 3.5 Chloride 105 Carbon Dioxide 27.0 Anion Gap 7 BUN 12 Creatinine 0.71 Estim Creat Clear Calc 39.50 Est GFR (MDRD) Af Amer 105 Est GFR (MDRD) Non-Af 87 BUN/Creatinine Ratio 17.0 Glucose 133 H Lactic Acid Calcium 8.2 L Troponin I 10.100 H* 12.100 H* B-Natriuretic Peptide Procalcitonin MRSA (PCR) Micro: Microbiology 04/06/21 23:43 Urine, Clean Catch Legionella Antigen - Final 04/06/21 23:43 Urine, Clean Catch Streptococcus pneumoniae Antigen (M - Final 04/06/21 20:10 Mucosa - Nose SARS-CoV-2 Antigen (Rapid) - Final ABG Data ABG results: ABG 04/06/21 20:44 Specimen Type ART Sample Site R Radial pH 7.08 L* Bicarbonate Actual 21.2 L Total CO2 23 Base Excess -9 L O2 Saturation 75 L ABG pCO2 72.0 H* ABG pO2 56 L Carroll Test Positive O2 Delivery Device AeroMask Liter Flow 8.0 Crit Call To/Read Back Yes Blood Gas Notified Whom Radiography Diagnostic Testing: Radiology Impression Chest X-Ray 04/06/21 20:20 IMPRESSION: Diffuse multifocal pulmonary opacities may represent edema versus infection as clinically indicated. Electronically Signed: Jaylen Venegas MD at 20:56 EDT Tel , Service support , Physical Exam Narrative Physical exam General: Alert, Oriented x3, Cooperative on BiPAP. HEENT: Atraumatic, PERRLA, EOMI, Normocephalic Oral: No Gingival or Mucosal Lesions/ Ulcerations Neck: Supple, No JVD, Negative Carotid Bruits Lungs: Air entry severely diminished in bilateral lung bases. On BiPAP. Bibasilar rales present. Cardiovascular: Left subcuticular AICD. Paced rhythm on monitor. Normal S1, Normal S2, No murmurs Abdomen: Bowel Sounds Present, Soft, Non Tender, Non-Distended : No renal angle tenderness. No suprapubic tenderness. Extremities: Mild bilateral ankle edema, Capillary Refill Less than 3 Seconds Skin: No rashes, No breakdown Musculoskeletal: No Tenderness to Palpation of Joints or Extremities Neurological: Cranial nerves II-XII grossly intact, Deep Tendon Reflexes 2+/4 and Symmetrical, Neuro grossly intact Psych/Mental Status: Normal Affect, Appropriate. Assessment & Plan Assessment/Plan (1) Acute exacerbation of CHF (congestive heart failure): QUALIFIERS: Heart failure type: systolic Qualified Code(s): I50.23 - Acute on chronic systolic (congestive) heart failure (2) Acute respiratory failure with hypoxia and hypercapnia: (3) HCAP (healthcare-associated pneumonia): (4) Heart failure with reduced ejection fraction: PLAN: This is a 70-year-old female admitted to PCU for generalized weakness, swelling, shortness of breath progressive worsening for 3 days with acute combined hypercapnic and hypoxic respiratory failure 1. Acute hypoxic and hypercarbic respiratory failure secondary to acute exacerbation of chronic systolic heart failure: Patient significantly improved over BiPAP. ABG shows 7.0 in ED. Marketing Rotation Associate was consulted and seems patient respiratory failure mainly due to heart failure. Chest x-ray shows multifocal patchy opacities consistent with heart failure. No respiratory complaint of cough or fever. Flying Ii Instructor consult, Dr. Lemos reviewed and patient wanted to discuss with Dr. Phelps prior to consideration [facility].. On Lasix. Patient is status post AICD. EKG shows ventricular paced r hythm with PVCs. BNP elevated 3093. 2D echo of 01/30/2021. EF 15%. Moderate mitral valve insufficiency. RVSP 31 mmHg. Heart failure protocol. Patient on carvedilol, hydralazine and isosorbide. On Lasix 40 mg IV twice daily. On low-dose lisinopril. 2. Elevated troponin most probably non-STEMI: Patient troponin peaked at 12.1. Most recent 8.5. Patient denies chest pain. On therapeutic Lovenox rest as mentioned above. 3. Lactic acidosis most likely secondary to hypoxia: Initial concern of severe sepsis/septic shock due to lactic acidosis 4.8; repeat was normal.. Procalcitonin normal. Antibiotic discontinued 4. Prediabetes Glucose of 242 on BMP. Likely secondary to stress. Review of records show the A1c 01/29/2021 was 5.8. Repeat glucose 133. DVT prophylaxis Subcutaneous Lovenox Total time of the visit including total time spent in counseling or coordination of care, (more than 50% of the total time, spent in obtaining medical information from nurses and other ancillary care providers,explaining to the patient about labs, imaging, diagnosis and management), discussion with consultants, review of labs and imaging is 30 minutes. Charges/Coding Visit Charges Inpatient E&M: 05069 Subs Hosp L3
--- NOTE | 2021-04-07 12:25 | CASEMGMT ---
FRANK OWENS assessment: Face to Face with patient for initial transition planning/care coordination assessment. FRANK OWENS introduced self and role at [facility], pt voices understanding and consents to assessment. Pt is sitting up in bed on room air in no distress with son at bedside. Pt is A/Ox4 and answers all questions appropriately. Care providers, pharmacy, and demographics verified/updated. Presentation: Difficulty breathing, recent COVID vaccine, fever yesterday Admitting dx: Acute exac HF PCP: Pt states does not have PCP but has some recommendations and plans to make appt Specialists: Lenin, cardio; [facility] wash house worker Preferred [facility]acy: [facility](only if [facility] closed) Insurance: [facility] A/B Prescription Benefit: Pt states does not have Rx coverage but states no concerns with getting meds currently. Living Will/HPOA: Pt states is in the process of completing LW/HPOA and just needs to finish. Pt declines AD info. LNOK: Osmel Lau, brother; Ralf Andres, son Living Arrangements: Pt states lives alone in 2 story home and states no concerns at home. Pt states is independent with ADL's. Transportation: Pt states drives self and states no transportation concerns. DME/HHC: Pt states has walk-in shower, shower chair, walker, and sock aid. Pt declines need for any further DME. Pt states no hx of HHC or SNF but pt states is active with [facility] out of [place]. Judy prajapati, voices understanding. Pt states no concerns with going home at time of discharge. Pt is unemployed. Pt states does not smoke cigarettes or drink ETOH. Pt states no further concerns/needs. CM to follow for any further discharge planning/needs. Advised pt to ask for CM if any further questions/concerns/needs arise, voices understanding. Pt Goal: Home Plan: [place] FRANK OWENS
[2021-04-07] MEDS: 0.9% Saline Lock 10 ML Syringe IV (14:30)
[2021-04-07 16:55] LABS: Bedside Glucose 96 mg/dL (70-110)
--- NOTE | 2021-04-07 20:35 | CPS ---
Talked to pt about wearing the bipap at night. She stated that she wishes to not wear it and feels she doesn't need it for night time only for distress. pt also stated that she was given lasix and doesn't want to wear it if shes up throughout the night a lot with restroom use. She wishes to just use a nasal cannula for the night.
[2021-04-07 22:05] LABS: Bedside Glucose 82 mg/dL (70-110)
[2021-04-08] VITALS (8 sets, daily range): BP systolic 98–108; BP diastolic 56–72; PULSE 86–92; RESP 14–18; TEMP 36.7–36.9; O2SAT 94–97
[2021-04-08] MEDS: Isosorbide Mononitrate 20 MG Tablet 5 MG PO (06:31)
[2021-04-08] MEDS: hydrALAZINE 10 MG Tablet PO (06:32)
[2021-04-08 06:33] LABS: Absolute Lymphocyte Count 1.75 X10^3/uL (0.83-4.51); Absolute Neutrophil Count 5.3 X10^3/uL (2.0-7.7); Basophil# 0.05 X10^3/uL; Basophil% 0.6 % (0-1); Eosinophil# 0.16 X10^3/uL; Hematocrit 38.7 % (37-47); Hemoglobin 12.8 g/dL (12.0-15.0); Lymphocyte # 1.75 X10^3/ul (0.83-4.51); Lymphocyte % 21.6 % (19-41); Mean Corp Hgb Conc 33.1 g/dL (32-36); Mean Corpuscular Hgb 30.5 pg (27.0-32.0); Mean Corpuscular Volume 92.4 fL (81-99); Mean Platelet Vol. 10.8 fl (6.2-12.0); Monocyte# 0.85 X10^3/uL; Monocyte% 10.5 % (0-10); NRBC Flagged by Analyzer 0 % (0-5); Neutrophil # 5.26 X10^3/uL (2.7-7.7); Neutrophil % 65.1 % (47-70); Platelet Count 229 K/mm3 (150-450); RBC Distribution Width SD 47.6 fl (35.1-43.9); Red Blood Count 4.19 M/mm3 (4.2-5.4); White Blood Count 8.1 K/mm3 (4.4-11.0)
[2021-04-08 06:40] LABS: Bedside Glucose 123 mg/dL (70-110)
[2021-04-08 07:02] LABS: Anion Gap 6 (5-15); BUN 17 mg/dL (7-18); BUN/Creat Ratio 22.6 RATIO (10-20); Calcium,Total 8.5 mg/dL (8.5-10.1); Chloride 105 mmol/L (98-107); Creatinine, Serum 0.75 mg/dL (0.55-1.02); EST Glomerular Filtration Rate 81 mL/min (>60); Est Glom Filt Rate - Afr Amer 98 mL/min (>60); Glucose 109 mg/dL (74-106); Potassium 3.5 mmol/L (3.5-5.1); Sodium Level 141 mmol/L (136-145)
[2021-04-08] MEDS: Enoxaparin 60 MG/0.6 ML Syringe 50 MG SC (10:03)
[2021-04-08] MEDS: Furosemide 40 MG/4 ML Vial IV (10:04)
[2021-04-08] MEDS: Carvedilol 3.125 MG TABLET PO (10:04)
[2021-04-08] MEDS: Spironolactone 25 MG Tablet PO (10:06)
--- NOTE | 2021-04-08 11:19 | PCM.DC ---
Discharge Instructions Diet Discharge Diet: Low fat / Low cholesterol, 6 Cup Fluid Restriction and 2000 mg Sodium Diet Activity Discharge Activity: Return to Normal Activity Weight Bearing Status: Weight bearing as tolerated Dressing / Incision Call your doctor if you observe: Fever of 101 or Higher, Coldness, Increased Pain, Numbness or Tingling, Change in Color, Inability to urinate, Inability to have a bowel movement, Using more than 1 pad per hour, Shortness of breath, Dizziness, Fainting spells, Swelling in the ankles, Chest pain, Prolonged hiccupping, Increased palpitations (irregular heartbeat), Calf discomfort and Uncontrolled pain Follow Up Care Test Results: Test results from this visit will be discussed in further detail at your follow-up appointment, if applicable. Discharge Plan Admission Admit Date/Time: 04/06/21 21:27 Primary Reason for Your Visit: Acute hypercapnic respiratory failure secondary to heart failure exacerbati Attending Provider: Emil Vieyra Primary Care Provider: Keiko Physician,Kalpana Primary Consulting Providers: Kyrie Lemos ; Sidney Hodgson ; Joo Tay ; Amee Torres KICKBOXING INSTRUCTOR Instructions Patient Instructions: ED Heart Failure, Congestive (CHF) Discharge Orders/Prescriptions Prescriptions: New sennosides-docusate sodium [Stool Softener-Stimulant Laxat] 8.6-50 mg Tablet 2 tab PO BID PRN PRN (Reason: Constipation) Qty: 0 RF: 0 spironolactone 25 mg Tablet 12.5 mg PO DAILY Qty: 30 RF: 0 carvedilol 3.125 mg Tablet 3.125 mg PO BID Qty: 60 RF: 1 lisinopril 2.5 mg Tablet 2.5 mg PO DAILY Qty: 30 RF: 1 clopidogrel [Plavix] 75 mg tablet 75 mg PO DAILY Qty: 30 RF: 2 Continued aspirin 81 MG tablet 81 mg PO DAILY Qty: 30 RF: 0 isosorbide mononitrate 10 mg Tablet 5 mg PO TID RF: 0 hydralazine 10 mg Tablet 10 mg PO TID RF: 0 Mucinex 1,200 MG tablet extended release 12hr 1,200 mg PO DAILY PRN (Reason: Congestion) Qty: 14 RF: 0 Changed furosemide 40 MG tablet 40 mg PO DAILY Qty: 30 RF: 1 Discontinued carvedilol 12.5 MG tablet 3.14 mg PO BID RF: 0 Referrals / Follow Up: Care Physician,No Primary [Primary Care Provider] - Sidney Hodgson MD [STAFF PHYSICIAN] - Within 1 Month Livan Phelps MD [STAFF PHYSICIAN] - Within 2 Weeks (FOR heart failure exacerbation) Amee Torres NP, KICKBOXING INSTRUCTOR-C [Nurse Practitioner] - Within 2 Weeks Disposition Disposition (needs filled in before D/C Order can be placed): Home, self care
--- NOTE | 2021-04-08 11:46 | DS.PCM_ITS ---
Providers Date of Admission: 04/06/21 Primary Care Physician: Kalpana Primary Care Phys Consultations 04/06/21 23:57 Consult: Cardiology Routine Consulting Provider: Kyrie Lemos Reason for Consult: Elevated troponin EMERGENT Consult: No Notified: Yes Date Notified: 04/06/21 Time Notified: 23:57 Method of Notification: Text Method of Consult:: In-Person 04/07/21 07:51 Consult: Social Work Assistant / Pulmonary Medicine Routine Consulting Provider: Pulmonary Medicine dominic Sahuarita Reason for Consult: Severe sepsis secondary to pneumonia EMERGENT Consult: No Notified: Yes Date Notified: 04/07/21 Time Notified: 07:55 Method of Notification: Text Reason For Visit: ACUTE EXACERBATION OF HEART FAILURE WITH REDUCED Diagnosis Discharge Diagnosis (1) Acute exacerbation of CHF (congestive heart failure): Status: Acute Code(s): I50.9 - Heart failure, unspecified Qualifiers: Heart failure type: systolic Qualified Code(s): I50.23 - Acute on chronic systolic (congestive) heart failure (2) Acute respiratory failure with hypoxia and hypercapnia: Status: Acute Code(s): J96.01 - Acute respiratory failure with hypoxia; J96.02 - Acute respiratory failure with hypercapnia (3) HCAP (healthcare-associated pneumonia): Status: Acute Code(s): J18.9 - Pneumonia, unspecified organism (4) Heart failure with reduced ejection fraction: Status: Acute Code(s): I50.20 - Unspecified systolic (congestive) heart failure Medications at Discharge Home Medications aspirin 81 mg PO DAILY #30 tab 10/17/20 hydralazine 10 mg PO TID 02/28/21 isosorbide mononitrate 5 mg PO TID 02/28/21 Mucinex 1,200 mg PO DAILY PRN #14 tab 04/08/21 carvedilol 3.125 mg PO BID #60 tab 04/08/21 clopidogrel [Plavix] 75 mg PO DAILY #30 tab 04/08/21 furosemide 40 mg PO DAILY #30 tab 04/08/21 lisinopril 2.5 mg PO DAILY #30 tab 04/08/21 sennosides-docusate sodium [Stool Softener-Stimulant Laxat] 2 tab PO BID PRN PRN #0 tab 04/08/21 spironolactone 12.5 mg PO DAILY #30 tab 04/08/21 Hospital Course Summary of Care Provided Hospital Course: This is a 70-year-old female admitted to PCU for generalized weakness, swelling, shortness of breath progressive worsening for 3 days with acute combined hypercapnic and hypoxic respiratory failure 1. Acute hypoxic and hypercarbic respiratory failure secondary to acute exacerbation of chronic systolic heart failure: Patient significantly improved over BiPAP. ABG shows 7.08/72/56 in ED. Social Work Assistant was consulted and seems patient respiratory failure mainly due to heart failure. Chest x-ray shows multifocal patchy opacities consistent with heart failure. No respiratory complaint of cough or fever. Patient was seen in the [facility] and as per patient not candidate for PCI or CABG. Home Service Advisor consult, Dr. Lemos reviewed and patient wanted to discuss with Dr. Phelps prior to consideration [facility]. [facility] EKG shows ventricular paced rhythm with PVCs. BNP elevated 3093. 2D echo of 01/30/2021. EF 15%. Moderate mitral valve insufficiency. RVSP 31 mmHg. Heart failure protocol. Patient on carvedilol, hydralazine and isoso rbide. On Lasix 40 mg IV twice daily. On low-dose lisinopril. Patient discharged on Lasix 40 mg daily, Coreg 3.125 mg twice daily, lisinopril 2.5 mg daily and home dose of hydralazine and isosorbide mononitrate. Discussed with Dr. Lemos and agreed for giving Plavix for non-STEMI. 2. Elevated troponin non-STEMI: Patient troponin peaked at 12.1. Most recent 8.5. Patient denies chest pain. On therapeutic Lovenox rest as mentioned above. Discharged on Plavix as mentioned above 3. Lactic acidosis most likely secondary to hypoxia: Initial concern of severe sepsis/septic shock ruled out. Lactic acidosis 4.8; repeat was normal.. Procalcitonin normal. Antibiotic discontinued. 4. Prediabetes Glucose of 242 on BMP. Likely secondary to stress. Review of records show the A1c 01/29/2021 was 5.8. Repeat glucose 133. DVT prophylaxis Subcutaneous Lovenox Discharge medication reconciliation done. Discharge follow-up instructions completed. Discharge process discussed with the patient and all questions were answered to patient's satisfaction. Follow-up appointment as per discharge instruction. Total time spent, exact 35 minutes on discharge meds reconciliation, examinati on, coordination of care with nurses and ancillary staff, review of imaging and blood test and discussion with the patient on follow-up instructions Clinical Impression(s) from Imaging Studies Chest X-Ray 04/06/21 20:20 IMPRESSION: Diffuse multifocal pulmonary opacities may represent edema versus infection as clinically indicated. Physical Exam Narrative Seen and examined. Patient is not short of breath. Pulse ox 97% on room air. Heart rate 81 bpm. Patient's blood pressure is on baseline lower side Physical exam General: Alert, Oriented x3, Cooperative on BiPAP. HEENT: Atraumatic, PERRLA, EOMI, Normocephalic Oral: No Gingival or Mucosal Lesions/ Ulcerations Neck: Supple, No JVD, Negative Carotid Bruits Lungs: Air entry severely diminished in bilateral lung bases. Lungs clear. Cardiovascular: Left subcuticular AICD. Paced rhythm on monitor. Normal S1, Normal S2, No murmurs Abdomen: Bowel Sounds Present, Soft, Non Tender, Non-Distended : No renal angle tenderness. No suprapubic tenderness. Extremities: bilateral ankle edema resolved, Capillary Refill Less than 3 Seconds Skin: No rashes, No breakdown Musculoskeletal: No Tenderness to Palpation of Joints or Extremities Neurological: Cranial nerves II-XII grossly intact, Deep Tendon Reflexes 2+/4 and Symmetrical, Neuro grossly intact Psych/Mental Status: Normal Affect, Appropriate. Weight / BMI Weight Weight: 112 lb 14.027 oz Body Mass Index (BMI) 21.6 ABG / Lab / Microbiology Data Result Diagrams: 04/08/21 05:37 04/08/21 05:37 Laboratory: Laboratory Results - last 24 hr 04/07/21 04/07/21 04/08/21 16:44 21:18 05:37 WBC 8.1 RBC 4.19 L Hgb 12.8 Hct 38.7 MCV 92.4 MCH 30.5 MCHC 33.1 RDW Std Deviation 47.6 H RDW Coeff of Toby 14.0 Plt Count 229 MPV 10.8 Immature Gran % (Auto) 0.200 Neut % (Auto) 65.1 Lymph % (Auto) 21.6 Canadian % (Auto) 10.5 H Eos % (Auto) 2.0 Baso % (Auto) 0.6 Absolute Neuts (auto) 5.3 Absolute Lymphs (auto) 1.75 Nucleated RBC % 0 Sodium Potassium Chloride Carbon Dioxide Anion Gap BUN Creatinine Estim Creat Clear Calc Est GFR (MDRD) Af Amer Est GFR (MDRD) Non-Af BUN/Creatinine Ratio Glucose Calcium Magnesium POC Glucose 96 82 04/08/21 04/08/21 05:37 06:31 WBC RBC Hgb Hct MCV MCH MCHC RDW Std Deviation RDW Coeff of Toby Plt Count MPV Immature Gran % (Auto) Neut % (Auto) Lymph % (Auto) [place] % (Auto) Eos % (Auto) Baso % (Auto) Absolute Neuts (auto) Absolute Lymphs (auto) Nucleated RBC % Sodium 141 Potassium 3.5 Chloride 105 Carbon Dioxide 30.0 Anion Gap 6 BUN 17 Creatinine 0.75 Estim Creat Clear Calc 39.50 Est GFR (MDRD) Af Amer 98 Est GFR (MDRD) Non-Af 81 BUN/Creatinine Ratio 22.6 H Glucose 109 H Calcium 8.5 Magnesium 2.0 POC Glucose 123 H Microbiology: Microbiology 04/06/21 23:43 Urine, Clean Catch Legionella Antigen - Final 04/06/21 23:43 Urine, Clean Catch Streptococcus pneumoniae Antigen (M - Final 04/06/21 20:10 Mucosa - Nose SARS-CoV-2 Antigen (Rapid) - Final D/C Instructions Discharge Diet: Low fat / Low cholesterol, 6 Cup Fluid Restriction and 2000 mg Sodium Diet Weight Bearing Status: Weight bearing as tolerated Call your doctor if you observe: Fever of 101 or Higher, Coldness, Increased Pain, Numbness or Tingling, Change in Color, Inability to urinate, Inability to have a bowel movement, Using more than 1 pad per hour, Shortness of breath, Dizziness, Fainting spells, Swelling in the ankles, Chest pain, Prolonged hiccupping, Increased palpitations (irregular heartbeat), Calf discomfort and Uncontrolled pain Meaningful Use Info Meaningful Use Diagnoses (Choose all that apply): AMI and CHF AMI/Post PCI/Angioplasty Aspirin given w/in 24hrs of arrival?: Yes ASA at discharge?: Yes Antiplatelet Therapy at Discharge:: Yes Statins at discharge?: Yes Tyler/ARB at discharge?: Yes Beta Erin at discharge?: Yes Done w/ Acute PA measure.: Yes CHF TYLER/ARB ordered at discharge?: Yes Documented LVEF (%): 15 Discharge Plan Admission Admit Date/Time: 04/06/21 21:27 Primary Reason for Your Visit: Acute hypercapnic respiratory failure secondary to heart failure exacerbati Attending Provider: Emil Vieyra Primary Care Provider: Keiko Hernandez,Kalpana Primary Consulting Providers: Kyrie Lemos ; Sidney Hodgson ; Joo Tay ; Amee Torres SUPERVISING LIBRARIAN Instructions Patient Instructions: ED Heart Failure, Congestive (CHF) Additional Instructions / Restrictions: Patient Problems: Altered Health Status related to Hospitalization Patient Goals: *Optimal Level of Health *Keep Appointments *Medication Compliance *Remain Safe Discharge Orders/Prescriptions Prescriptions: New sennosides-docusate sodium [Stool Softener-Stimulant Laxat] 8.6-50 mg Tablet 2 tab PO BID PRN PRN (Reason: Constipation) Qty: 0 RF: 0 spironolactone 25 mg Tablet 12.5 mg PO DAILY Qty: 30 RF: 0 carvedilol 3.125 mg Tablet 3.125 mg PO BID Qty: 60 RF: 1 lisinopril 2.5 mg Tablet 2.5 mg PO DAILY Qty: 30 RF: 1 clopidogrel [Plavix] 75 mg tablet 75 mg PO DAILY Qty: 30 RF: 2 Continued aspirin 81 MG tablet 81 mg PO DAILY Qty: 30 RF: 0 isosorbide mononitrate 10 mg Tablet 5 mg PO TID RF: 0 hydralazine 10 mg Tablet 10 mg PO TID RF: 0 Mucinex 1,200 MG tablet extended release 12hr 1,200 mg PO DAILY PRN (Reason: Congestion) Qty: 14 RF: 0 Changed furosemide 40 MG tablet 40 mg PO DAILY Qty: 30 RF: 1 Discontinued carvedilol 12.5 MG tablet 3.14 mg PO BID RF: 0 Referrals / Follow Up: Livan Phelps MD [STAFF PHYSICIAN] - 05/05/21 10:30 am (FOR heart failure exacerbation) Care Physician,No Primary [Primary Care Provider] - Amee Torres NP, CHARLY-C [Nurse Practitioner] - 04/08/21 11:00 am Disposition Disposition (needs filled in before D/C Order can be placed): Home, self care Charges/Coding Visit Charges Inpatient E&M: 97080 Disch Hosp
[2021-04-08 12:26] LABS: Bedside Glucose 86 mg/dL (70-110)
[2021-04-08 14:00] LABS: Cholesterol 168 mg/dL (200); High Density Lipoprotein 64 mg/dL; Triglycerides 77 mg/dL; Very Low Density Lipoprotein 15 mg/dL (5-40)
--- NOTE | 2021-04-12 14:55 | CASEMGMT ---
FRANK OWENS Discharge Follow-up Phone Call: KORY: Hananh Strata: 3 Call Date: 04/12/21 Discharge Date: 04/08/21 Time of Call: 1455 Duration: 1 min Admitting Diagnosis: Acute exacerbation of heart failure RN GRACIELA attempted to complete follow-up phone call after recent hospitalization. No answer, voice message left with return call back number. Patient had appts scheduled prior to discharge.
== END 2021-04-08 13:41 | disposition home or self-care (01) | DRG 280 ==
LOC: ED 21:28 → PCU 04-07 00:59
PROVIDERS: Admitting Provider Hospitalist; Emergency Provider Emergency Medicine; Visit Provider Internal Medicine
DX: I11.0 Hypertensive heart disease with heart failure (principal); J96.01 Acute respiratory failure with hypoxia; I21.4 Non-ST elevation (NSTEMI) myocardial infarction; J96.02 Acute respiratory failure with hypercapnia; J18.9 Pneumonia, unspecified organism; E87.2 Acidosis; I50.23 Acute on chronic systolic (congestive) heart failure; Y95 Nosocomial condition; Z20.822 Contact with and (suspected) exposure to COVID-19; I34.0 Nonrheumatic mitral (valve) insufficiency; I25.10 Atherosclerotic heart disease of native coronary artery without angina pectoris; R73.03 Prediabetes; F41.0 Panic disorder [episodic paroxysmal anxiety]; F32.9 Major depressive disorder, single episode, unspecified; Z79.02 Long term (current) use of antithrombotics/antiplatelets; Z79.82 Long term (current) use of aspirin; Z79.899 Other long term (current) drug therapy; Z87.891 Personal history of nicotine dependence; Z95.810 Presence of automatic (implantable) cardiac defibrillator
CPT/HCPCS: 36415; 36600; 71045; 80048; 80061; 82803; 82962; 83605; 83735; 83880; 84145; 84484; 85025; 87040; 87426; 87449; 87641; 93005; 94002; 94003; 94640; 97162; 97166; 97802; 99251; 99285; J7050; A4216; G0463; J1940

== ENCOUNTER 2021-04-27 06:31 | Emergency (ER) | payer MEDICARE, SELFPAY ==
[2021-04-06 23:01] VITALS: BMI 21.6
[2021-04-27 06:32] VITALS: BP 130/92; PULSE 110; RESP 14; TEMP 36.6; O2SAT 97; BMI 22.8
--- NOTE | 2021-04-27 06:44 | EKG12_ITS ---
Test Reason : SOB Blood Pressure : / mmHG Vent. Rate : 093 BPM Atrial Rate : 093 BPM P-R Int : 140 ms QRS Dur : 180 ms QT Int : 430 ms P-R-T Axes : 065 -49 104 degrees QTc Int : 534 ms Atrial-sensed ventricular-paced rhythm Biventricular pacemaker detected Abnormal ECG Confirmed by NICHOLAS ALCARAZ, SENG ([id number]), editor publications HILL JERNIGAN ([id number]) on 05/02/2021 12:50:53 PM Referred By: MARY Confirmed By:SENG PETERSON MD
--- NOTE | 2021-04-27 06:49 | ED.VIS.DYS ---
HPI <Dr. Jason Bolden MD - Last Filed: 04/27/21 07:14> History of Present Illness Chief Complaint: Shortness of Breath Narrative Narrative: Patient presenting for evaluation secondary to shortness of breath. Patient has a underlying history of congestive heart failure, ICD placement, coronary artery disease. Patient states that last night she had an onset of shortness of breath. She reports that in times past she had been able to treat her shortness of breath with short bursts of Lasix. Patient reports last night she took 10 mg of Lasix and when she started urinating her shortness of breath seemed like it improved. Patient denies any chest pain. She denies any cough. She denies any fevers associated with this. No recent changes in her medications, no increased peripheral edema. Patient was concerned because in times past when she let this go it would progress to the point where she required to be placed on BiPAP and to be admitted to the hospital and she states that she would like to nip this in the bud. Review of systems otherwise negative. PFSH <Dr. Jason Bolden MD - Last Filed: 04/27/21 07:14> [facility] Medical History Anxiety Atherosclerotic heart disease of [place] coronary artery without angina pectoris Congestive heart failure (CHF) Coronary artery disease Depression Former smoker Hypertension ICD (implantable cardioverter-defibrillator) in place Pacemaker Home Medications aspirin 81 mg PO DAILY #30 tab 10/17/20 [Rx Last Taken 04/06/21] hydralazine 10 mg PO TID 02/28/21 [History Last Taken 04/06/21 13:30] carvedilol 3.125 mg PO BID #60 tab 04/08/21 [Rx Last Taken Unknown] acetaminophen 325 mg tablet 325 mg PO ONCE PRN 04/21/21 [History Last Taken Unknown] furosemide 20 mg tablet 10 mg PO DAILY PRN tab 04/21/21 [History Last Taken Unknown] isosorbide dinitrate 5 mg tablet 5 mg PO TID 04/21/21 [History Last Taken Unknown] rosuvastatin 10 mg tablet 10 mg PO DAILY 04/21/21 [History Last Taken Unknown] spironolactone 12.5 mg PO PRN PRN 04/27/21 [History Last Taken Unknown] Allergy/AdvReac Type Severity Reaction Status Date / Time Sulfa (Sulfonamide Allergy Rash Verified 04/27/21 06:35 Antibiotics) amoxicillin AdvReac Other Verified 04/27/21 06:35 [id number] Reductase AdvReac palpitation Verified 04/27/21 06:35 Inhibitor s Family History Father Aneurysm Grandmother Congestive heart failure Brother Diabetes Other Heart disease Surgical History History of left heart catheterization (LHC) (~01/31/21) Social History Smoking Status: Former smoker ROS <Dr. Jason Bolden MD - Last Filed: 04/27/21 07:14> ROS ED Constitutional Constitutional ED: Denies fever(s) Eyes Eyes: Denies change in vision ENT ENT ED: Denies rhinorrhea or sore throat Cardiovascular Cardiovascular: Reports as per HPI; Denies chest pain Respiratory/Chest Respiratory/Chest: Reports dyspnea Gastrointestinal Gastrointestinal: Denies abdominal pain, nausea or vomiting Genitourinary Genitourinary ED: Denies dysuria Musculoskeletal Musculoskeletal: Denies myalgias or neck pain Integumentary Denies rash Neurologic Neurologic: Denies headache(s), paresthesias or weakness Psychiatric Psychiatric: Denies depression Endocrine Endocrinology: Denies polydipsia or polyuria Hematologic/Lymphatic Hematologic/Lymphatic: Denies easy bleeding or easy bruising Allergic/Immunologic Allergic/Immunologic ED: Denies urticaria EXAM <Dr. Jason Bolden MD - Last Filed: 04/27/21 07:14> Physical Exam Const Vital Signs: 04/27/21 06:32 04/27/21 06:44 04/27/21 06:55 Temperature 98 F 98 F Temperature Source Oral Oral Pulse Rate 110 H 110 H Respiratory Rate 14 14 Respiratory Effort Short of Breath Respiratory Depth Normal Respiratory Pattern Normal Blood Pressure 130/92 H 130/92 H Blood Pressure Mean 104 104 Pulse Ox 97 97 Oxygen Delivery Method Room Air Room Air 04/27/21 08:35 Temperature Temperature Source Pulse Rate 95 Respiratory Rate 25 H Respiratory Effort Respiratory Depth Respiratory Pattern Blood Pressure 124/86 H Blood Pressure Mean 98 Pulse Ox 95 Oxygen Delivery Method Room Air Positive well nourished and well developed General Appearance ED: well developed and NAD HEENT Reports moist mucous membranes normocephalic and atraumatic Eyes EOMs intact bilaterally Neck no lymphadenopathy, supple and no JVD Chest Wall inspection of chest normal and palpation of chest normal Chest Narrative: No evidence of vesicular rash Resp normal respiratory effort and clear to auscultation bilaterally Resp Narrative: Patient is not at all dyspneic and is speaking in full sentences Auscultation: Negative for rales, rhonchi or wheezes Cardio regular rhythm, S1 normal heart sound, S2 normal heart sound and no murmurs Cardio Narrative: 2+ radial pulses bilaterally symmetric Rate: tachycardic Peripheral Pulses: radial pulses present and posterior tibial pulses present GI normal to inspection, nondistended, normoactive bowel sounds, soft to palpation and non-tender Extremity normal to inspection Extremity Narrative: Calves are supple no palpable cord General Extremety ED: Negative for edema or tenderness General Extremity: Negative for edema Neuro oriented x3 and no sensory deficits noted Sensorium / Orientation: awake and alert Motor Exam: strength 5/5 throughout Psych mental status grossly normal Skin no rashes or lesions noted <Dr. Yasmany Hernandez DO - Last Filed: 04/27/21 09:46> Physical Exam Const Vital Signs: 04/27/21 06:32 04/27/21 06:44 04/27/21 06:55 Temperature 98 F 98 F Temperature Source Oral Oral Pulse Rate 110 H 110 H Respiratory Rate 14 14 Respiratory Effort Short of Breath Respiratory Depth Normal Respiratory Pattern Normal Blood Pressure 130/92 H 130/92 H Blood Pressure Mean 104 104 Pulse Ox 97 97 Oxygen Delivery Method Room Air Room Air 04/27/21 08:35 Temperature Temperature Source Pulse Rate 95 Respiratory Rate 25 H Respiratory Effort Respiratory Depth Respiratory Pattern Blood Pressure 124/86 H Blood Pressure Mean 98 Pulse Ox 95 Oxygen Delivery Method Room Air [facility] <Dr. Jason Bolden MD - Last Filed: 04/27/21 07:14> [facility] Narrative Medical decision making narrative: Patient presented secondary to an episode of shortness of breath. On physical exam she is in no way dyspneic, and has normal stable vital signs. Work-up for the possibility of congestive heart failure or cardiac event was initiated. Patient's results of her lab work and chest x-ray will be followed up by the oncoming provider. I feel that there is a high likelihood that the patient will be able to be discharged at the conclusion of her work-up. Lab Data Labs: Laboratory Results - last 24 hr 04/27/21 04/27/21 04/27/21 06:50 06:50 06:50 WBC 10.6 RBC 4.29 Hgb 13.0 Hct 38.5 MCV 89.7 MCH 30.3 MCHC 33.8 RDW Std Deviation 44.2 H RDW Coeff of Toby 13.5 Plt Count 379 MPV 10.0 Immature Gran % (Auto) 0.400 Neut % (Auto) 84.3 H Lymph % (Auto) 7.8 L Mccormick % (Auto) 6.7 Eos % (Auto) 0.3 Baso % (Auto) 0.5 Absolute Neuts (auto) 9.0 H Absolute Lymphs (auto) 0.83 Nucleated RBC % 0 Sodium 138 Potassium 3.6 Chloride 105 Carbon Dioxide 25.0 Anion Gap 8 BUN 14 Creatinine 0.72 Estim Creat Clear Calc 39.50 Est GFR (MDRD) Af Amer 103 Est GFR (MDRD) Non-Af 85 BUN/Creatinine Ratio 19.4 Glucose 159 H Calcium 9.0 Troponin I High Sens 41.8 B-Natriuretic Peptide 2124.7 H 04/27/21 08:44 WBC RBC Hgb Hct MCV MCH MCHC RDW Std Deviation RDW Coeff of Toby Plt Count MPV Immature Gran % (Auto) Neut % (Auto) Lymph % (Auto) Mccormick % (Auto) Eos % (Auto) Baso % (Auto) Absolute Neuts (auto) Absolute Lymphs (auto) Nucleated RBC % Sodium Potassium Chloride Carbon Dioxide Anion Gap BUN Creatinine Estim Creat Clear Calc Est GFR (MDRD) Af Amer Est GFR (MDRD) Non-Af BUN/Creatinine Ratio Glucose Calcium Troponin I High Sens 69.7 H* B-Natriuretic Peptide Radiography Diagnostic Testing: Radiology Impression Chest X-Ray 04/27/21 07:11 IMPRESSION: Cardiomegaly and AICD without florid pulmonary edema. Improved aeration from prior exam with residual pneumonia, alveolar edema, or scarring in the anterior inferior lateral right upper lobe. CT could further evaluate if clinically indicated. Otherwise additional radiographic follow-up recommended after treatment to ensure resolution. Findings compatible with chronic obstructive pulmonary disease. at 0730 Reported and signed by: Boone Pedraza MD Electronically Signed: Boone Pedraza MD at 7:28 EDT Tel , Service support , EKG Initial EKG: Attestation: I personally reviewed and interpreted this EKG as follows: (Atrially sensed ventricularly paced rhythm at 93. There is no evidence of pathologic discordance or acute ischemic or arrhythmic changes. Normal pacemaker function.) <Dr. Yasmany Hernandez, DO - Last Filed: 04/27/21 09:46> [facility] MDM Narrative Medical decision making narrative: Care of the patient was turned over to me pending labs. CBC was normal. Basic metabolic profile was essentially within normal limits. BNP was 2124.7. This was improved compared to previous results. High-sensitivity troponin was 41.8. A 2-hour repeat high-sensitivity troponin was elevated at 69.7. Patient was advised of our findings. Patient was advised of the need for further evaluation. Patient refuses to be admitted to the hospital. Patient does not want to have a stress test or heart cath done. Patient was advised that this could be myocardial damage. Patient understands this and does not want to do anything about it. Patient was advised that she could go home and . Patient understands the risks and will sign out AGAINST MEDICAL ADVICE. Lab Data Attestation: I reviewed the patient's lab results. Labs: Laboratory Results - last 24 hr 04/27/21 04/27/21 04/27/21 06:50 06:50 06:50 WBC 10.6 RBC 4.29 Hgb 13.0 Hct 38.5 MCV 89.7 MCH 30.3 MCHC 33.8 RDW Std Deviation 44.2 H RDW Coeff of Toby 13.5 Plt Count 379 MPV 10.0 Immature Gran % (Auto) 0.400 Neut % (Auto) 84.3 H Lymph % (Auto) 7.8 L Mccormick % (Auto) 6.7 Eos % (Auto) 0.3 Baso % (Auto) 0.5 Absolute Neuts (auto) 9.0 H Absolute Lymphs (auto) 0.83 Nucleated RBC % 0 Sodium 138 Potassium 3.6 Chloride 105 Carbon Dioxide 25.0 Anion Gap 8 BUN 14 Creatinine 0.72 Estim Creat Clear Calc 39.50 Est GFR (MDRD) Af Amer 103 Est GFR (MDRD) Non-Af 85 BUN/Creatinine Ratio 19.4 Glucose 159 H Calcium 9.0 Troponin I High Sens 41.8 B-Natriuretic Peptide 2124.7 H 04/27/21 08:44 WBC RBC Hgb Hct MCV MCH MCHC RDW Std Deviation RDW Coeff of Toby Plt Count MPV Immature Gran % (Auto) Neut % (Auto) Lymph % (Auto) Mccormick % (Auto) Eos % (Auto) Baso % (Auto) Absolute Neuts (auto) Absolute Lymphs (auto) Nucleated RBC % Sodium Potassium Chloride Carbon Dioxide Anion Gap BUN Creatinine Estim Creat Clear Calc Est GFR (MDRD) Af Amer Est GFR (MDRD) Non-Af BUN/Creatinine Ratio Glucose Calcium Troponin I High Sens 69.7 H* B-Natriuretic Peptide Radiography Diagnostic Testing: Radiology Impression Chest X-Ray 04/27/21 07:11 IMPRESSION: Cardiomegaly and AICD without florid pulmonary edema. Improved aeration from prior exam with residual pneumonia, alveolar edema, or scarring in the anterior inferior lateral right upper lobe. CT could further evaluate if clinically indicated. Otherwise additional radiographic follow-up recommended after treatment to ensure resolution. Findings compatible with chronic obstructive pulmonary disease. at 0730 Reported and signed by: Boone Pedraza MD Electronically Signed: Boone Pedraza MD at 7:28 EDT Tel , Service support , Discharge Plan Triage Chief Complaint: Shortness of Breath ED Provider: Jason Bolden Dx/Rx/DC Orders Clinical Impression: Elevated troponin Instructions: CAD Prescriptions: No Action acetaminophen 325 mg tablet 325 mg PO ONCE PRNRF: 0 isosorbide dinitrate 5 mg tablet 5 mg PO TID RF: 0 furosemide 20 mg tablet 10 mg PO DAILY PRN (Reason: edema) RF: 0 rosuvastatin 10 mg tablet 10 mg PO DAILY RF: 0 aspirin 81 MG tablet 81 mg PO DAILY Qty: 30 RF: 0 hydralazine 10 mg Tablet 10 mg PO TID RF: 0 carvedilol 3.125 mg Tablet 3.125 mg PO BID Qty: 60 RF: 1 spironolactone 25 mg tablet 12.5 mg PO PRN PRN (Reason: SWELLING) RF: 0 Primary Care Provider: Care Physician,No Primary Referrals: Livan Phelps MD [STAFF PHYSICIAN] - [facility] appointment Care Physician,No Primary [Primary Care Provider] - Disposition Disposition: Against Medical Advice
[2021-04-27 06:55] VITALS: BP 130/92; PULSE 110; RESP 14; TEMP 36.6; O2SAT 97
[2021-04-27 07:05] LABS: Absolute Lymphocyte Count 0.83 X10^3/uL (0.83-4.51); Basophil# 0.05 X10^3/uL; Basophil% 0.5 % (0-1); Eosinophil# 0.03 X10^3/uL; Eosinophils% 0.3 % (0-5); Hematocrit 38.5 % (37-47); Lymphocyte # 0.83 X10^3/ul (0.83-4.51); Lymphocyte % 7.8 % (19-41); Mean Corp Hgb Conc 33.8 g/dL (32-36); Mean Corpuscular Hgb 30.3 pg (27.0-32.0); Mean Corpuscular Volume 89.7 fL (81-99); Monocyte# 0.71 X10^3/uL; Monocyte% 6.7 % (0-10); NRBC Flagged by Analyzer 0 % (0-5); Neutrophil # 8.98 X10^3/uL (2.7-7.7); Neutrophil % 84.3 % (47-70); Platelet Count 379 K/mm3 (150-450); RBC Distribution Width CV 13.5 % (11.6-14.6); RBC Distribution Width SD 44.2 fl (35.1-43.9); Red Blood Count 4.29 M/mm3 (4.2-5.4); White Blood Count 10.6 K/mm3 (4.4-11.0)
--- NOTE | 2021-04-27 07:11 | RAD_ITS ---
HISTORY: chest pain EXAMINATION/TECHNIQUE: XR Chest 2 Views: COMPARISON: April 06, 2021 FINDINGS: LINES/DEVICES: Multilead left chest AICD. LUNGS: Lungs are hyperexpanded with coarse interstitium. Improved aeration from prior exam with residual hazy opacity in the inferior lateral right upper lobe. No effusion. No pneumothorax. MEDIASTINUM: Unchanged cardiomegaly. MUSCULOSKELETAL: No acute osseous finding. RAD/Chest PA and Lateral IMPRESSION: Cardiomegaly and AICD without florid pulmonary edema. Improved aeration from prior exam with residual pneumonia, alveolar edema, or scarring in the anterior inferior lateral right upper lobe. CT could further evaluate if clinically indicated. Otherwise additional radiographic follow-up recommended after treatment to ensure resolution. Findings compatible with chronic obstructive pulmonary disease. at 0730 Reported and signed by: Boone Pedraza MD Electronically Signed: Boone Pedraza MD at 7:28 EDT Tel , Service support ,
[2021-04-27 07:18] LABS: Anion Gap 8 (5-15); BUN 14 mg/dL (7-18); BUN/Creat Ratio 19.4 RATIO (10-20); Chloride 105 mmol/L (98-107); Creatinine, Serum 0.72 mg/dL (0.55-1.02); EST Glomerular Filtration Rate 85 mL/min (>60); Est Glom Filt Rate - Afr Amer 103 mL/min (>60); Glucose 159 mg/dL (74-106); Potassium 3.6 mmol/L (3.5-5.1); Sodium Level 138 mmol/L (136-145); Troponin-I HS 41.8 pg/mL (3.0-53.7)
[2021-04-27 07:50] LABS: BNP,B-Type NATRIURETIC PEPTIDE 2124.7 pg/mL (0-100)
[2021-04-27 08:35] VITALS: BP 124/86; PULSE 95; RESP 25; O2SAT 95
[2021-04-27 09:27] LABS: Troponin-I HS 69.7 pg/mL (3.0-53.7)
[2021-04-27 10:12] VITALS: BP 129/90; PULSE 76; RESP 16; O2SAT 95
[2021-04-27 10:13] VITALS: BP 129/90; PULSE 76; RESP 16; O2SAT 95
--- NOTE | 2021-04-27 10:13 | ED.RN ---
AMA FORM SIGNED BY PT AND , WITNESSED BY THIS RN. PT HAS NO FURTHER QUESTIONS AND VERBALIZES UNDERSTANDING OF D/C INSTRUCTIONS. PT D/C.
== END 2021-04-27 10:14 | disposition left against medical advice (07) ==
PROVIDERS: Emergency Medicine; Emergency Provider Emergency Medicine
DX: R06.02 Shortness of breath (principal); R79.89 Other specified abnormal findings of blood chemistry; I11.0 Hypertensive heart disease with heart failure; I50.9 Heart failure, unspecified; I25.10 Atherosclerotic heart disease of native coronary artery without angina pectoris; F32.9 Major depressive disorder, single episode, unspecified; F41.9 Anxiety disorder, unspecified; Z79.82 Long term (current) use of aspirin; Z79.899 Other long term (current) drug therapy; Z87.891 Personal history of nicotine dependence; Z95.810 Presence of automatic (implantable) cardiac defibrillator
CPT/HCPCS: 71046; 80048; 83880; 84484; 85025; 93005; 99284; A4216

== ENCOUNTER 2021-06-12 17:37 | Inpatient (IN) | payer MEDICARE, SELFPAY ==
[2021-06-12] VITALS (17 sets, daily range): BP systolic 117–137; BP diastolic 84–98; PULSE 88–133; RESP 12–24; TEMP 35.5–37.1; O2SAT 89–99; BMI 22.1; BMI 21.4
--- NOTE | 2021-06-12 18:09 | RAD_ITS ---
STUDY: X-RAY CHEST REASON FOR EXAM: Female, 70 years old. chest pain TECHNIQUE: Frontal and lateral views of the chest COMPARISON: 27 April 2021 FINDINGS: There are small bilateral pleural effusions and mild pulmonary edema. The heart is severely enlarged. Pacemaker is present in the left upper chest with leads terminating in the right atrium, right ventricle and coronary vein. Lungs are severely hyperinflated. The skeleton is osteoporotic. RAD/Chest PA and Lateral IMPRESSION: 1. Mild pulmonary edema. 2. Small effusions. 3. Severe cardiomegaly. 4. Moderate to severe emphysema. Electronically Signed: Khadra Rogers MD at 18:57 EDT Tel , Service support ,
--- NOTE | 2021-06-12 18:09 | EKG12_ITS ---
Test Reason : ANXIETY Blood Pressure : / mmHG Vent. Rate : 133 BPM Atrial Rate : 133 BPM P-R Int : 112 ms QRS Dur : 178 ms QT Int : 360 ms P-R-T Axes : 068 018 068 degrees QTc Int : 535 ms Sinus tachycardia Left bundle branch block Abnormal ECG Confirmed by NICHOLAS ALCARAZ, SENG ([id number]), scientific publications editor HILL JERNIGAN ([id number]) on 06/16/2021 10:53:45 AM Referred By: MARY Confirmed By:SENG PETERSON MD
--- NOTE | 2021-06-12 18:18 | EDS_ITS ---
HPI History of Present Illness Chief Complaint: Anxiety Narrative Narrative: Patient presenting for evaluation secondary to shortness of breath and anxiety. Patient has a underlying history of of hypertension, coronary artery disease, cardiomyopathy with congestive heart failure with ICD placement. Patient states that over the course of about the last 3 days she has been dealing with shortness of breath. Does state that it somewhat exertional and has been associated with chest pain. Is not been associated with infectious signs or symptoms such as fever cough. Patient states that she is sensitive to Lasix so she only takes small doses. She reports that she has been taking 10 mg/day over the course of the last couple of days and is only been having fluctuations in her weight of around 1 pound at a time. Patient states that her shortness of breath has been causing her difficulty with sleeping and feels that that may have pushed her into a panic attack which is making everything worse. [facility] Medical History Anxiety Atherosclerotic heart disease of [place] coronary artery without angina pectoris Congestive heart failure (CHF) Coronary artery disease Depression Former smoker Hypertension ICD (implantable cardioverter-defibrillator) in place Pacemaker Home Medications aspirin 81 mg PO DAILY #30 tab 10/17/20 [Rx Last Taken 04/06/21] hydralazine 10 mg PO TID 02/28/21 [History Last Taken 04/06/21 13:30] carvedilol 3.125 mg PO BID #60 tab 04/08/21 [Rx Last Taken Unknown] acetaminophen 325 mg tablet 325 mg PO ONCE PRN 04/21/21 [History Last Taken Unknown] furosemide 20 mg tablet 10 mg PO DAILY PRN tab 04/21/21 [History Last Taken Unknown] isosorbide dinitrate 5 mg tablet 5 mg PO TID 04/21/21 [History Last Taken Unknown] spironolactone 12.5 mg PO PRN PRN 04/27/21 [History Last Taken Unknown] clopidogrel 75 mg tablet 75 mg PO DAILY 05/05/21 [History Last Taken Unknown] Allergy/AdvReac Type Severity Reaction Status Date / Time Sulfa (Sulfonamide Allergy Rash Verified 05/05/21 10:29 Antibiotics) amoxicillin AdvReac Other Verified 05/05/21 10:29 [id number] Reductase AdvReac palpitation Verified 05/05/21 10:29 Inhibitor s Family History Father Aneurysm Grandmother Congestive heart failure Brother Diabetes Grandfather Myocardial infarction, Onset Age: 60 Grandfather Myocardial infarction, Onset Age: 60 Other Heart disease Surgical History History of left heart catheterization (LHC) (~01/31/21) Social History Smoking Status: Former smoker alcohol intake: never substance use type: does not use caffeine: Yes Type: coffee ROS ROS ED Constitutional Constitutional ED: Denies fever(s) Eyes Eyes: Denies change in vision ENT ENT ED: Denies rhinorrhea or sore throat Cardiovascular Cardiovascular: Reports as per HPI and chest pain Respiratory/Chest Respiratory/Chest: Reports dyspnea Gastrointestinal Gastrointestinal: Denies abdominal pain, nausea or vomiting Genitourinary Genitourinary ED: Denies dysuria Musculoskeletal Musculoskeletal: Denies myalgias or neck pain Integumentary Denies rash Neurologic Neurologic: Denies headache(s), paresthesias or weakness Psychiatric Psychiatric: Reports anxiety Endocrine Endocrinology: Denies polydipsia or polyuria Hematologic/Lymphatic Hematologic/Lymphatic: Denies easy bleeding or easy bruising Allergic/Immunologic Allergic/Immunologic ED: Denies urticaria EXAM Physical Exam Const Vital Signs: 06/12/21 17:38 06/12/21 17:49 06/12/21 18:23 Temperature 97.6 F L Temperature Source Temporal Pulse Rate 118 H Respiratory Rate 20 H Respiratory Effort Short of Breath Respiratory Depth Normal Blood Pressure 137/98 H Blood Pressure Mean 111 Pulse Ox 98 93 Oxygen Delivery Method Room Air Nasal Cannula Oxygen Flow Rate (L/min) 3 Positive well nourished and well developed General Appearance ED: well developed and NAD HEENT Reports moist mucous membranes normocephalic and atraumatic Eyes EOMs intact bilaterally Neck no lymphadenopathy, supple and no JVD Chest Wall inspection of chest normal and palpation of chest normal Chest Narrative: No evidence of vesicular rash Resp normal respiratory effort Resp Narrative: Rales are noted at the right base, normal respiratory effort Auscultation: rales; Negative for rhonchi or wheezes Cardio regular rate, regular rhythm, S1 normal heart sound, S2 normal heart sound and no murmurs Rate: other Other Details: 2+ radial pulses bilaterally symmetric Peripheral Pulses: radial pulses present and posterior tibial pulses present GI normal to inspection, nondistended, normoactive bowel sounds, soft to palpation and non-tender Extremity normal to inspection Extremity Narrative: Calves are supple no palpable cord General Extremety ED: Negative for edema or tenderness General Extremity: Negative for edema Neuro oriented x3 and no sensory deficits noted Sensorium / Orientation: awake and alert Psych mental status grossly normal Skin no rashes or lesions noted MDM MDM MDM Narrative Medical decision making narrative: Patient presented with shortness of breath and some anxiety. On initial presentation the patient was only modestly short of breath and had some rales in the right base, normal heart rate. Work-up for congestive heart failure was obtained. Patient's initial chest x-ray by my personal interpretation showed some pulmonary vascular congestion, this was in concurrence with radiology. Initial high-sensitivity troponin was only 25, BNP was 1923. Renal function was normal chemistries were normal. Patient had an acute change in her status, and developed significant tachycardia, diaphoresis, and pulse ox in the 70% range. Patient was immediately placed on BiPAP, she was given 40 of Lasix. I reviewed patient's records, she has an ejection fraction of 15% I think that her elevation of her heart rate is causing flash pulmonary edema and congestive heart failure. Patient was given a dose of Lopressor and had improvement of her heart rate. BiPAP improve the patient's oxygenation and overall status. This point I believe the patient does require admission. I discussed this with the hospitalist. Lab Data Labs: Laboratory Results - last 24 hr 06/12/21 06/12/21 06/12/21 18:20 18:20 18:20 WBC 8.0 RBC 4.92 Hgb 15.0 Hct 45.4 MCV 92.3 MCH 30.5 MCHC 33.0 RDW Std Deviation 47.8 H RDW Coeff of Toby 14.1 Plt Count 258 MPV 10.7 Immature Gran % (Auto) 0.300 Neut % (Auto) 76.3 H Lymph % (Auto) 16.9 L Woods % (Auto) 4.8 Eos % (Auto) 1.1 Baso % (Auto) 0.6 Absolute Neuts (auto) 6.1 Absolute Lymphs (auto) 1.35 Nucleated RBC % 0 Sodium 139 Potassium 4.1 Chloride 105 Carbon Dioxide 25.0 Anion Gap 9 BUN 17 Creatinine 0.80 Estim Creat Clear Calc 49.38 Est GFR (MDRD) Af Amer 92 Est GFR (MDRD) Non-Af 76 BUN/Creatinine Ratio 21.4 H Glucose 124 H Calcium 9.8 Troponin I High Sens 25 B-Natriuretic Peptide 1923.1 H Radiography Chest X-Ray - ED: 1 View and CHF Diagnostic Testing: Radiology Impression Chest X-Ray 06/12/21 18:09 IMPRESSION: 1. Mild pulmonary edema. 2. Small effusions. 3. Severe cardiomegaly. 4. Moderate to severe emphysema. Electronically Signed: Khadra Rogers MD at 18:57 EDT Tel , Service support , EKG Initial EKG: Attestation: I personally reviewed and interpreted this EKG as follows: (Sinus tachycardia with left bundle branch block morphology. Tall T waves are noted in the precordium, but there does not appear to be 5 mm of discordance although this is an acute change from the patient's prior EKGs) Follow-up EKG: Attestation: I personally reviewed and interpreted this EKG as follows: (Atrially sensed ventricularly paced rhythm with significant improvement of the patient's T wave changes. No evidence of pathologic deviation of the ST segments.) Critical Care Time Critical Care Time: Yes Critical care time (excluding procedures): 30-74 minutes (42), Discussing w/Consultants, Arranging Admission or Transfer and Performing Direct Patient Care at Bedside Discharge Plan Triage Chief Complaint: Anxiety ED Provider: Jason Bolden Dx/Rx/DC Orders Clinical Impression: CHF exacerbation, Respiratory failure Prescriptions: No Action clopidogrel 75 mg tablet 75 mg PO DAILY RF: 0 acetaminophen 325 mg tablet 325 mg PO ONCE PRNRF: 0 isosorbide dinitrate 5 mg tablet 5 mg PO TID RF: 0 furosemide 20 mg tablet 10 mg PO DAILY PRN (Reason: edema) RF: 0 aspirin 81 MG tablet 81 mg PO DAILY Qty: 30 RF: 0 hydralazine 10 mg Tablet 10 mg PO TID RF: 0 carvedilol 3.125 mg Tablet 3.125 mg PO BID Qty: 60 RF: 1 spironolactone 25 mg tablet 12.5 mg PO PRN PRN (Reason: SWELLING) RF: 0 Primary Care Provider: Care Physician,No Primary Referrals: Care Physician,No Primary [Primary Care Provider] - Disposition Disposition: Acute Care [facility]
[2021-06-12] MEDS: diazePAM 2 MG Tablet PO (18:22)
[2021-06-12 18:44] LABS: Absolute Lymphocyte Count 1.35 X10^3/uL (0.83-4.51); Absolute Neutrophil Count 6.1 X10^3/uL (2.0-7.7); Basophil# 0.05 X10^3/uL; Basophil% 0.6 % (0-1); Eosinophil# 0.09 X10^3/uL; Eosinophils% 1.1 % (0-5); Hematocrit 45.4 % (37-47); Lymphocyte # 1.35 X10^3/ul (0.83-4.51); Lymphocyte % 16.9 % (19-41); Mean Corpuscular Hgb 30.5 pg (27.0-32.0); Mean Corpuscular Volume 92.3 fL (81-99); Mean Platelet Vol. 10.7 fl (6.2-12.0); Monocyte# 0.38 X10^3/uL; Monocyte% 4.8 % (0-10); NRBC Flagged by Analyzer 0 % (0-5); Neutrophil # 6.09 X10^3/uL (2.7-7.7); Neutrophil % 76.3 % (47-70); Platelet Count 258 K/mm3 (150-450); RBC Distribution Width CV 14.1 % (11.6-14.6); RBC Distribution Width SD 47.8 fl (35.1-43.9); Red Blood Count 4.92 M/mm3 (4.2-5.4)
[2021-06-12] MEDS: Furosemide 40 MG/4 ML Vial IV (18:47)
--- NOTE | 2021-06-12 18:50 | CPS ---
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 Pt sats in 80's, HR in 120's, increased WOB, and diaphoretic. Breath sounds coarse. Notified Dr. Bolden and requested BIPAP. Pt tolerated well.
[2021-06-12 18:56] LABS: Anion Gap 9 (5-15); BUN 17 mg/dL (7-18); BUN/Creat Ratio 21.4 RATIO (10-20); Calcium,Total 9.8 mg/dL (8.5-10.1); Chloride 105 mmol/L (98-107); EST Glomerular Filtration Rate 76 mL/min (>60); Est Glom Filt Rate - Afr Amer 92 mL/min (>60); Estimated Creatinine Clearance 49.38 ml/min; Glucose 124 mg/dL (74-106); Potassium 4.1 mmol/L (3.5-5.1); Sodium Level 139 mmol/L (136-145); Troponin-I HS 25 pg/mL (3.0-54.0)
[2021-06-12] MEDS: Metoprolol Tartrate 5 MG/5 ML Vial IV (19:08)
--- NOTE | 2021-06-12 19:22 | EKG12_ITS ---
Test Reason : REPEAT Blood Pressure : / mmHG Vent. Rate : 089 BPM Atrial Rate : 089 BPM P-R Int : 132 ms QRS Dur : 184 ms QT Int : 450 ms P-R-T Axes : 068 -48 107 degrees QTc Int : 547 ms Atrial-sensed ventricular-paced rhythm Biventricular pacemaker detected Abnormal ECG Confirmed by NICHOLAS ALCARAZ, SENG ([id number]), editor managing newspaper HILL JERNIGAN ([id number]) on 06/16/2021 10:54:05 AM Referred By: MARY Confirmed By:SENG PETERSON MD
--- NOTE | 2021-06-12 19:48 | NURSING ---
ICU AGYEPONG CHF, RESP FAILURE
--- NOTE | 2021-06-12 19:58 | PCM.HP.STD ---
HPI - General General Date of Admission: 06/12/21 HPI Narrative TIFFANY CARDONA, is a 70 F with a significant history of congestive heart failure who presents to emergency department with 3 to 4-day history of shortness of breath. She denies any proximal nocturnal dyspnea or orthopnea. She still has symptoms because of anxiety. While at emergency department patient suddenly became [place]; hypoxic; was in respiratory distress; diaphoretic and tachycardia. Worsening EKG changes was noted. Patient received laces metoprolol and was placed on BiPAP and she had significant improvement in his symptoms. ON LICENSE OF [facility] Medical History Anxiety Atherosclerotic heart disease of [place] coronary artery without angina pectoris Congestive heart failure (CHF) Coronary artery disease Depression Former smoker Hypertension ICD (implantable cardioverter-defibrillator) in place Pacemaker Home Medications hydralazine 10 mg PO TID 02/28/21 [History Last Taken 04/06/21 13:30] acetaminophen 325 mg tablet 325 mg PO ONCE PRN 04/21/21 [History Last Taken Unknown] furosemide 20 mg tablet 10 mg PO DAILY PRN tab 04/21/21 [History Last Taken Unknown] isosorbide dinitrate 5 mg tablet 5 mg PO TID 04/21/21 [History Last Taken Unknown] spironolactone 12.5 mg PO PRN PRN 04/27/21 [History Last Taken Unknown] clopidogrel 75 mg tablet 75 mg PO DAILY 05/05/21 [History Last Taken Unknown] aspirin 81 mg PO DAILY 06/12/21 [History Last Taken Unknown] carvedilol 3.125 mg PO BID 06/12/21 [History Last Taken Unknown] Allergy/AdvReac Type Severity Reaction Status Date / Time Sulfa (Sulfonamide Allergy Rash Verified 05/05/21 10:29 Antibiotics) amoxicillin AdvReac Other Verified 05/05/21 10:29 [id number] Reductase AdvReac palpitation Verified 05/05/21 10:29 Inhibitor s Family History Father Aneurysm Grandmother Congestive heart failure Brother Diabetes Grandfather Myocardial infarction, Onset Age: 60 Grandfather Myocardial infarction, Onset Age: 60 Other Heart disease Surgical History History of left heart catheterization (LHC) (~01/31/21) Social History Smoking Status: Former smoker alcohol intake: never substance use type: does not use caffeine: Yes Type: coffee ROS ROS Narrative Constitutional: Denies anorexia and change in weight Eyes: Denies blurry vision, change in eye color, change in vision, discharge from eye(s), double vision, erythema, eye pain, loss of vision or other HEENT: Denies abnormal hearing, dysphagia, ear pain, epistaxis, headache(s), hearing loss, nasal congestion, nasal discharge, post nasal drip, sinus pressure, sore throat or other Cardiovascular: Denies chest pain. Denies orthopnea and paroxysmal nocturnal dyspnea Respiratory/Chest: Reports shortness of breath. Denies cough or excessive phlegm production. Gastrointestinal: Denies abdominal pain, coffee ground emesis, constipation, diarrhea, dyspepsia, hematemesis, hematochezia, loose stools, melena, nausea, vomiting or other Genitourinary: Denies burning urination, difficulty urinating, dysuria, hematuria, nocturia, urinary frequency, urinary hesitancy, urinary incontinence, urinary urgency or other Musculoskeletal: Denies arthralgias, back pain, joint pain, joint stiffness, joint swelling, myalgias, neck pain or other Neurologic: Denies abnormal gait, abnormal speech, confusion, disequilibrium, dizziness, focal weakness, headache(s), numbness, paresthesias, seizure-like activity, seizures, syncope, tingling, tremor(s) or other Psychiatric: Reports anxiety. Denies depression, homicidal ideation, suicidal ideation or other Endocrinology: Denies change in body appearance, cold intolerance, excessive sweating, heat intolerance, polydipsia, polyuria or other Hematologic/Lymphatic: Denies anemia, easy bleeding, easy bruising, lymphadenopathy or other Integumentary: Denies rashes Allergic/Immunologic: Denies rhinitis, hives, eczema, asthma or other Vital Signs Vital Signs Vital Signs: 06/12/21 17:38 06/12/21 17:49 06/12/21 18:23 Temperature 97.6 F L Temperature Source Temporal Pulse Rate 118 H Respiratory Rate 20 H Respiratory Effort Short of Breath Respiratory Depth Normal Blood Pressure 137/98 H Blood Pressure Mean 111 Pulse Ox 98 93 Oxygen Delivery Method Room Air Nasal Cannula Oxygen Flow Rate (L/min) 3 Weight Weight: 53.07 kg Body Mass Index (BMI) 22.1 Physical Exam Narrative Physical exam: General: Well-nourished, well-developed, no acute distress Head: Normocephalic, atraumatic, no tenderness Eyes: PERRLA, EOMI ENT, no trauma, moist mucous membranes, no rhinorrhea Neck: Nontender, full range of motion, no spinal tenderness, deformities, step-off CVS: Regular rate and rhythm Respiratory; on BiPAP with use of accessory muscles of respiration. Tachypnea. Rales. Abdomen: Soft, nontender, nondistended, normal bowel sounds, no masses : Deferred Back: Nontender, no CVA tenderness, no midline spinal tenderness, deformities, step-offs Extremities: Nontender full range of motion, no trauma Skin: Normal color, no trauma, abrasions Neuro: Alert, oriented, cranial nerves II through XII grossly intact. Psychiatry: Anxious. Results Lab / Micro Data Result Diagrams: 06/12/21 18:20 06/12/21 18:20 Labs: Laboratory Results - last 24 hr 06/12/21 18:20: WBC 8.0, RBC 4.92, Hgb 15.0, Hct 45.4, MCV 92.3, MCH 30.5, MCHC 33.0, RDW Std Deviation 47.8 H, RDW Coeff of Toby 14.1, Plt Count 258, MPV 10.7, Immature Gran % (Auto) 0.300, Neut % (Auto) 76.3 H, Lymph % (Auto) 16.9 L, [place] % (Auto) 4.8, Eos % (Auto) 1.1, Baso % (Auto) 0.6, Absolute Neuts (auto) 6.1, Absolute Lymphs (auto) 1.35, Nucleated RBC % 0 06/12/21 18:20: Sodium 139, Potassium 4.1, Chloride 105, Carbon Dioxide 25.0, Anion Gap 9, BUN 17, Creatinine 0.80, Estim Creat Clear Calc 49.38, Est GFR (MDRD) Af Amer 92, Est GFR (MDRD) Non-Af 76, BUN/Creatinine Ratio 21.4 H, Glucose 124 H, Calcium 9.8, Troponin I High Sens 25 06/12/21 18:20: B-Natriuretic Peptide 1923.1 H Radiology Impression Chest X-Ray 06/12/21 18:09 IMPRESSION: 1. Mild pulmonary edema. 2. Small effusions. 3. Severe cardiomegaly. 4. Moderate to severe emphysema. Electronically Signed: Khadra Rogers MD at 18:57 EDT Tel , Service support , Assessment & Plan Assessment/Plan (1) CHF exacerbation: QUALIFIERS: Heart failure type: systolic Qualified Code(s): I50.23 - Acute on chronic systolic (congestive) heart failure (2) Respiratory failure: QUALIFIERS: Chronicity: acute on chronic Respiratory failure complication: hypoxia Qualified Code(s): J96.21 - Acute and chronic respiratory failure with hypoxia PLAN: Acute Exacerbation of heart failure with reduced ejection fraction Of note patient underwent cardiac evaluation at hospital in January 2021. She was transferred to [facility] but she was not deemed a candidate for multivessel PCI; CABG or LVAD. Status post ICD. Placed on critical bed and intensive care unit. Weight on admission to the floor; and then daily Strict I&O's Radiologist impression of chest x-ray: 1. Mild pulmonary edema. 2. Small effusions. 3. Severe cardiomegaly. 4. Moderate to severe emphysema. Actual chest x-ray image was independently interpreted. I agree with radiologist interpretation. EKG independently reviewed confirms ventricular tachycardia with left bundle branch block. And then after treatment at the emergency department EKG showed paced rhythm. 1,923.1 Old records reviewed showed previously elevated BNP of even more than 5000. Lasix 40 mg IV twice daily ordered. Review of records show that echocardiogram was performed on 01/30/2021. That echocardiogram showed estimated ejection fraction of 15%. Moderate mitral valve insufficiency. Mild papillary muscle dysfunction of the mitral valve. Right ventricular systolic pressure was 31 mmHg. Monitor electrolytes and renal function Trend blood pressure Continue carvedilol; low-dose lisinopril; hydralazine and isosorbide continued. Titrate diuretics and heart failure/blood pressure medications with blood pressure. Fluid restriction of 1500 mls daily Salt restricted diet ordered. DVT prophylaxis: Subcutaneous Lovenox ordered. Charges/Coding Visit Charges Inpatient E&M: 57256 Init Hosp L3
--- NOTE | 2021-06-12 20:15 | NURSING ---
ICU 10
--- NOTE | 2021-06-12 20:34 | NURSING ---
CV ICU 204
[2021-06-12 23:53] LABS: Troponin-I HS 559 pg/mL (3.0-54.0)
[2021-06-13] VITALS (29 sets, daily range): BP systolic 83–114; BP diastolic 58–86; PULSE 74–94; RESP 12–22; TEMP 36.2–37.2; O2SAT 95–99
[2021-06-13] MEDS: Clopidogrel Bisulfate 300 MG Tablet PO (00:48)
[2021-06-13] MEDS: Enoxaparin 60 MG/0.6 ML Syringe 50 MG SC ×2 (00:49→10:21)
[2021-06-13] MEDS: Aspirin 325 MG Tablet PO (00:51)
[2021-06-13 01:28] LABS: Troponin-I HS 1038 pg/mL (3.0-54.0)
[2021-06-13] MEDS: Acetaminophen 325 MG Tablet 650 MG PO (04:53)
[2021-06-13 04:56] LABS: Absolute Lymphocyte Count 1.78 X10^3/uL (0.83-4.51); Absolute Neutrophil Count 7.2 X10^3/uL (2.0-7.7); Basophil# 0.04 X10^3/uL; Basophil% 0.4 % (0-1); Eosinophil# 0.06 X10^3/uL; Eosinophils% 0.6 % (0-5); Hemoglobin 13.4 g/dL (12.0-15.0); Lymphocyte # 1.78 X10^3/ul (0.83-4.51); Mean Corp Hgb Conc 33.5 g/dL (32-36); Mean Corpuscular Hgb 30.9 pg (27.0-32.0); Mean Corpuscular Volume 92.2 fL (81-99); Mean Platelet Vol. 10.5 fl (6.2-12.0); Monocyte# 0.77 X10^3/uL; Monocyte% 7.8 % (0-10); NRBC Flagged by Analyzer 0 % (0-5); Neutrophil # 7.22 X10^3/uL (2.7-7.7); Neutrophil % 72.9 % (47-70); Platelet Count 221 K/mm3 (150-450); RBC Distribution Width CV 13.8 % (11.6-14.6); Red Blood Count 4.34 M/mm3 (4.2-5.4); White Blood Count 9.9 K/mm3 (4.4-11.0)
[2021-06-13 05:19] LABS: Anion Gap 6 (5-15); BUN 15 mg/dL (7-18); BUN/Creat Ratio 22.8 RATIO (10-20); Calcium,Total 8.5 mg/dL (8.5-10.1); Chloride 106 mmol/L (98-107); Creatinine, Serum 0.66 mg/dL (0.55-1.02); EST Glomerular Filtration Rate 94 mL/min (>60); Est Glom Filt Rate - Afr Amer 114 mL/min (>60); Glucose 84 mg/dL (74-106); Potassium 3.5 mmol/L (3.5-5.1); Sodium Level 142 mmol/L (136-145); Troponin-I HS 1431 pg/mL (3.0-54.0)
--- NOTE | 2021-06-13 06:29 | CON.PCM.CC_ITS ---
Assessment & Plan Assessment/Plan (1) CHF exacerbation: QUALIFIERS: Heart failure type: systolic Qualified Code(s): I50.23 - Acute on chronic systolic (congestive) heart failure PLAN: RECOMMENDATIONS: 1. Wean supplemental oxygen to maintain saturations at or above 90%. 2. Continue diuretic therapy as tolerated by hemodynamics and renal function. 3. Additional medical optimization per cardiology recommendations. 4. Perform walking oximetry study prior to consideration for discharge home. 5. Encourage incentive spirometer use and mobilize patient as tolerated. 6. The patient is medically stable for transfer out of the intensive care unit. 7. Given the patient's lack of further ICU or pulmonary needs, will sign off. Please call with any additional questions. IMPRESSIONS: 1. Acute hypoxemic respiratory failure Secondary to acute decompensated heart failure. The patient responded to IV diuretic therapy and noninvasive positive pressure ventilatory support. She has improved significantly from a respiratory perspective. I will defer additional medical management to the patient's cardiology team. She can likely be transitioned to room air at this time. I would perform a walking oximetry study prior to consideration for discharge home. Encourage incentive spirometer use and mobilize patient as tolerated. 2. History of anxiety/panic attacks/hypertension Complicates care, management, recovery and prognosis. Continue home medications as indicated. This note was generated with [employer] dictation software. It may contain incorrect words, spelling, and punctuation that were not noted in checking the note before signing. HPI Consult Data Date of Consult: 06/13/21 HPI Narrative HPI Narrative: The patient is a 70-year-old female, with a history as outlined below, who presented to the emergency department on June 12 with shortness of breath and anxiety. The patient has a known history of coronary artery disease, ischemic cardiomyopathy, hypertension and is status post ICD placement. The patient was last admitted to the hospital in March under similar circumstances with decompensated heart failure. On presentation to the emergency department, the patient was noted to be afebrile but was tachycardic and tachypneic. Initial laboratory evaluation revealed no evidence of a leukocytosis. Chemistry profile was unremarkable. BNP was elevated at 1923. Troponins were increased with a peak this morning of 1431. Chest x-ray demonstrated cardiomegaly, pulmonary edema and small effusions. During the patient's emergency department stay, she was noted to have become increasingly hypoxemic, for which she was placed on BiPAP therapy. The patient also received IV Lasix. She was subsequently transferred to the medical intensive care unit for further management. FORMERLY [facility] Medical History Anxiety Atherosclerotic heart disease of [place] coronary artery without angina pectoris Congestive heart failure (CHF) Coronary artery disease Depression Former smoker Hypertension ICD (implantable cardioverter-defibrillator) in place Pacemaker Home Medications hydralazine 10 mg PO TID 02/28/21 [History Last Taken 04/06/21 13:30] acetaminophen 325 mg tablet 325 mg PO ONCE PRN 04/21/21 [History Last Taken Unknown] furosemide 20 mg tablet 10 mg PO DAILY PRN tab 04/21/21 [History Last Taken U nknown] isosorbide dinitrate 5 mg tablet 5 mg PO TID 04/21/21 [History Last Taken Unknown] spironolactone 12.5 mg PO PRN PRN 04/27/21 [History Last Taken Unknown] clopidogrel 75 mg tablet 75 mg PO DAILY 05/05/21 [History Last Taken Unknown] aspirin 81 mg PO DAILY 06/12/21 [History Last Taken Unknown] carvedilol 3.125 mg PO BID 06/12/21 [History Last Taken Unknown] Allergy/AdvReac Type Severity Reaction Status Date / Time Sulfa (Sulfonamide Allergy Rash Verified 05/05/21 10:29 Antibiotics) amoxicillin AdvReac Other Verified 05/05/21 10:29 [id number] Reductase AdvReac palpitation Verified 05/05/21 10:29 Inhibitor s Family History Father Aneurysm Grandmother Congestive heart failure Brother Diabetes Grandfather Myocardial infarction, Onset Age: 60 Grandfather Myocardial infarction, Onset Age: 60 Other Heart disease Surgical History History of left heart catheterization (LHC) (~01/31/21) Social History Smoking Status: Former smoker alcohol intake: never substance use type: does not use caffeine: Yes Type: coffee ROS Constitutional Constitutional: Denies chills, fatigue or fever(s) Eyes Eyes: Denies blurry vision or change in vision ENT HEENT: Denies hoarseness, loss taste/smell or nasal congestion Cardiovascular Cardiovascular: Reports dyspnea; Denies chest pain Respiratory/Chest Respiratory/Chest: Reports dyspnea; Denies chest tightness or cough Gastrointestinal Gastrointestinal: Denies abdominal pain, diarrhea, nausea or vomiting Genitourinary Genitourinary: Denies difficulty urinating Musculoskeletal Musculoskeletal: Denies arthralgias or back pain Integumentary Integumentary: Denies lesions, rash or skin ulcer Neurologic Neurologic: Denies abnormal gait or abnormal speech Psychiatric Psychiatric: Reports anxiety Endocrine Endocrinology: Denies fatigue or polydipsia Hematologic/Lymphatic Hematologic/Lymphatic: Denies easy bleeding or easy bruising Physical Exam Const alert, oriented x3 and no apparent distress General Appearance: cooperative HEENT normocephalic, head/scalp atraumatic and moist oral mucous membranes Eyes PERRL, EOMs intact bilaterally and conjunctivae normal Neck supple General: trachea midline Resp normal respiratory effort Auscultation: rales bilateral base Cardio regular rate and regular rhythm GI normal to inspection, nondistended, normoactive bowel sounds Extremity no clubbing, cyanosis or edema Skin no rashes or lesions noted Neuro CN's II-XII intact bilaterally, moves all extremities and no focal motor deficits Psych Mood & Affect: anxious Lab / Micro Data Result Diagrams: 06/13/21 04:45 06/13/21 04:45 Labs: Laboratory Results - last 24 hr 06/12/21 18:20: WBC 8.0, RBC 4.92, Hgb 15.0, Hct 45.4, MCV 92.3, MCH 30.5, MCHC 33.0, RDW Std Deviation 47.8 H, RDW Coeff of Toby 14.1, Plt Count 258, MPV 10.7, Immature Gran % (Auto) 0.300, Neut % (Auto) 76.3 H, Lymph % (Auto) 16.9 L, [place] % (Auto) 4.8, Eos % (Auto) 1.1, Baso % (Auto) 0.6, Absolute Neuts (auto) 6.1, Absolute Lymphs (auto) 1.35, Nucleated RBC % 0 06/12/21 18:20: Sodium 139, Potassium 4.1, Chloride 105, Carbon Dioxide 25.0, Anion Gap 9, BUN 17, Creatinine 0.80, Estim Creat Clear Calc 49.38, Est GFR (MDRD) Af Amer 92, Est GFR (MDRD) Non-Af 76, BUN/Creatinine Ratio 21.4 H, Glucose 124 H, Calcium 9.8, Troponin I High Sens 25 06/12/21 18:20: B-Natriuretic Peptide 1923.1 H 06/12/21 22:15: Troponin I High Sens 559 H* 06/13/21 01:00: Troponin I High Sens 1038 H* 06/13/21 04:45: Sodium 142, Potassium 3.5, Chloride 106, Carbon Dioxide 30.0, Anion Gap 6, BUN 15, Creatinine 0.66, Estim Creat Clear Calc 39.50, Est GFR (MDRD) Af Amer 114, Est GFR (MDRD) Non-Af 94, BUN/Creatinine Ratio 22.8 H, Glucose 84, Calcium 8.5, Troponin I High Sens 1431 H* 06/13/21 04:45: WBC 9.9, RBC 4.34, Hgb 13.4, Hct 40.0, MCV 92.2, MCH 30.9, MCHC 33.5, RDW Std Deviation 47.0 H, RDW Coeff of Toby 13.8, Plt Count 221, MPV 10.5, Immature Gran % (Auto) 0.300, Neut % (Auto) 72.9 H, Lymph % (Auto) 18.0 L, [place] % (Auto) 7.8, Eos % (Auto) 0.6, Baso % (Auto) 0.4, Absolute Neuts (auto) 7.2, Absolute Lymphs (auto) 1.78, Nucleated RBC % 0 Micro: Microbiology 06/12/21 20:55 Mucosa - Nose SARS-CoV-2 Antigen (Rapid) - Final Radiology Impression Chest X-Ray 06/12/21 18:09 IMPRESSION: 1. Mild pulmonary edema. 2. Small effusions. 3. Severe cardiomegaly. 4. Moderate to severe emphysema. Electronically Signed: Khadra Rogers MD at 18:57 EDT Tel , Service support , Charges/Coding Visit Charges Inpatient E&M: 18682 Init Hosp L3
--- NOTE | 2021-06-13 07:20 | CON.PCM.CA_ITS ---
Assessment & Plan Assessment/Plan (1) CHF exacerbation: QUALIFIERS: Heart failure type: systolic Qualified Code(s): I50.23 - Acute on chronic systolic (congestive) heart failure PLAN: She does appear to have an exacerbation of her congestive heart failure. The exact etiology is unclear. She does have underlying coronary artery disease but even though her troponin is elevated from her recent evaluation it does not appear that she is revascularizable from this. I would therefore recommend that we continue to maximally medically manage her. We will make some changes to her medical therapy. * I suspect she needs to be on more diuretic therapy. (2) Hypertension: PLAN: Her blood pressure appears to be under good control at this particular time. We will optimize the therapy with the beta-fabiana. (3) Cardiomyopathy: PLAN: She does have evidence of severe cardiomyopathy. I would like to increase the dose of her carvedilol as tolerated as well as her hydralazine and nitro if possible. (4) CAD (coronary artery disease): QUALIFIERS: Coronary Disease-Associated Artery/Lesion type: [place] artery [place] vs. transplanted heart: [place] heart Associated angina: without angina Qualified Code(s): I25.10 - Atherosclerotic heart disease of [place] coronary artery without angina pectoris PLAN: She has significant triple-vessel disease and has been evaluated at the [facility] and not felt to be a candidate for any further evaluation. We will continue to try and optimize her care. (5) ICD (implantable cardioverter-defibrillator) in place: PLAN: She is status post ICD implantation. I do not think that her ICD has discharged. In addition she does not appear to have had any cardiac arrhythmias. We will continue to monitor the above through the cardiac clinic. Thank you for allowing me to participate in the care of your patient. Please don't hesitate to call if any issues arise. HPI Consult Data Date of Consult: 06/13/21 HPI Narrative HPI Narrative: TIFFANY CARDONA, is a 70 F who presents to the emergency room with progressive shortness of breath and anxiety. She does have a history of underlying CAD, ischemic mediated cardiomyopathy, systolic mediated CHF, status post ICD placement, and hypertension who has been evaluated here as well as the [facility] and has been deemed to be appropriate for medical management. She recently underwent a cardiac catheterization in January 2021 and had an ejection fraction of 15%, with a left main stenosis of 50%, proximal LAD and distal LAD of 99%, a circumflex artery with 25% stenosis in the right coronary artery with 85% and 99% stenosis. Zorp-cz-zeosk collaterals were noted. She was transferred to the [facility] she was deemed not to be a candidate for multivessel PCI or coronary bypass surgery. A PET scan was performed which apparently demonstrated no evidence of hibernation. There was a large scar in the territory of the LAD. This time she presented with what she said was shortness of breath which came on suddenly there was no chest pain and she had a mild cough. No pedal edema was noted. She says that she has been compliant with her medications. In the emergency room she was noted to have bilateral rales and evidence of CHF. She was diuresed and this morning appears to doing quite well. [facility] Medical History Anxiety Atherosclerotic heart disease of [place] coronary artery without angina pectoris Congestive heart failure (CHF) Coronary artery disease Depression Former smoker Hypertension ICD (implantable cardioverter-defibrillator) in place Pacemaker Home Medications hydralazine 10 mg PO TID 02/28/21 [History Last Taken 04/06/21 13:30] acetaminophen 325 mg tablet 325 mg PO ONCE PRN 04/21/21 [History Last Taken Unknown] furosemide 20 mg tablet 10 mg PO DAILY PRN tab 04/21/21 [History Last Taken Unknown] isosorbide dinitrate 5 mg tablet 5 mg PO TID 04/21/21 [History Last Taken Unknown] spironolactone 12.5 mg PO PRN PRN 04/27/21 [History Last Taken Unknown] clopidogrel 75 mg tablet 75 mg PO DAILY 05/05/21 [History Last Taken Unknown] aspirin 81 mg PO DAILY 06/12/21 [History Last Taken Unknown] carvedilol 3.125 mg PO BID 06/12/21 [History Last Taken Unknown] Allergy/AdvReac Type Severity Reaction Status Date / Time Sulfa (Sulfonamide Allergy Rash Verified 05/05/21 10:29 Antibiotics) amoxicillin AdvReac Other Verified 05/05/21 10:29 Weyxpfc-Gxo-Iep Reductase AdvReac palpitation Verified 05/05/21 10:29 Inhibitor s Family History Father Aneurysm Grandmother Congestive heart failure Brother Diabetes Grandfather Myocardial infarction, Onset Age: 60 Grandfather Myocardial infarction, Onset Age: 60 Other Heart disease Surgical History History of left heart catheterization (LHC) (~01/31/21) Social History Smoking Status: Former smoker alcohol intake: never substance use type: does not use caffeine: Yes Type: coffee ROS Constitutional Constitutional: Denies fever(s) or weight loss Eyes Eyes: Reports systems reviewed and no addt'l complaints, except as documented ENT HEENT: Reports systems reviewed and no addt'l complaints, except as documented Cardiovascular Cardiovascular: Denies chest pain at rest, chest pain with activity, dyspnea at rest, dyspnea on exertion, edema, palpitations or paroxysmal nocturnal dyspnea Respiratory/Chest Respiratory/Chest: Reports dyspnea on exertion, productive cough, shortness of breath at rest and shortness of breath with exertion Gastrointestinal Gastrointestinal: Denies change in bowel habits, nausea, vomiting or weight changes Genitourinary Genitourinary: Denies difficulty urinating Musculoskeletal Musculoskeletal: Denies joint stiffness or muscle weakness Integumentary Integumentary: Denies lesions Neurologic Neurologic: Denies dizziness or syncope Psychiatric Psychiatric: Denies anxiety Endocrine Endocrinology: Denies excessive sweating or fatigue Hematologic/Lymphatic Hematologic/Lymphatic: Denies anemia Allergic/Immunologic Allergic/Immunologic: Denies seasonal rhinorrhea Physical Exam Const alert and oriented x3 HEENT normocephalic Eyes EOMs intact bilaterally Neck no JVD Lymph Lymphatic: no lymphadenopathy noted Chest inspection of chest normal Resp Auscultation: diminished lung sounds Cardio regular rate and regular rhythm Palpation: normal PMI Heart Sounds: S1 normal and S2 normal GI normal to inspection, nondistended, normoactive bowel sounds Extremity normal to inspection Neuro oriented x3 Objective Data Vital Signs: Vital Signs Temp Pulse Resp BP Pulse Ox 98.7 F 84 22 H 114/86 H 97 06/13/21 05:00 06/13/21 07:00 06/13/21 07:00 06/13/21 07:00 06/13/21 07:00 Oxygen Flow Rate (L/min) 2 Oxygen Delivery Method Nasal Cannula Weight: 113 lb 6.4 oz Body Mass Index (BMI) 21.4 Intake & Output: Intake and Output for Last 24 Hours 06/11/21 06/12/21 06/13/21 23:59 23:59 23:59 Intake Total 400 / 400 Output Total 900 / 1350 650 / 650 Balance -900 / -1350 -250 / -250 Lab / Micro Data Result Diagrams: 06/13/21 04:45 06/13/21 04:45 Labs: Laboratory Results - last 24 hr 06/12/21 18:20: WBC 8.0, RBC 4.92, Hgb 15.0, Hct 45.4, MCV 92.3, MCH 30.5, MCHC 33.0, RDW Std Deviation 47.8 H, RDW Coeff of Toby 14.1, Plt Count 258, MPV 10.7, Immature Gran % (Auto) 0.300, Neut % (Auto) 76.3 H, Lymph % (Auto) 16.9 L, [place] % (Auto) 4.8, Eos % (Auto) 1.1, Baso % (Auto) 0.6, Absolute Neuts (auto) 6.1, Absolute Lymphs (auto) 1.35, Nucleated RBC % 0 06/12/21 18:20: Sodium 139, Potassium 4.1, Chloride 105, Carbon Dioxide 25.0, Anion Gap 9, BUN 17, Creatinine 0.80, Estim Creat Clear Calc 49.38, Est GFR (MDRD) Af Amer 92, Est GFR (MDRD) Non-Af 76, BUN/Creatinine Ratio 21.4 H, Glucose 124 H, Calcium 9.8, Troponin I High Sens 25 06/12/21 18:20: B-Natriuretic Peptide 1923.1 H 06/12/21 22:15: Troponin I High Sens 559 H* 06/13/21 01:00: Troponin I High Sens 1038 H* 06/13/21 04:45: Sodium 142, Potassium 3.5, Chloride 106, Carbon Dioxide 30.0, Anion Gap 6, BUN 15, Creatinine 0.66, Estim Creat Clear Calc 39.50, Est GFR (MDRD) Af Amer 114, Est GFR (MDRD) Non-Af 94, BUN/Creatinine Ratio 22.8 H, Glucose 84, Calcium 8.5, Troponin I High Sens 1431 H* 06/13/21 04:45: WBC 9.9, RBC 4.34, Hgb 13.4, Hct 40.0, MCV 92.2, MCH 30.9, MCHC 33.5, RDW Std Deviation 47.0 H, RDW Coeff of Toby 13.8, Plt Count 221, MPV 10.5, Immature Gran % (Auto) 0.300, Neut % (Auto) 72.9 H, Lymph % (Auto) 18.0 L, [place] % (Auto) 7.8, Eos % (Auto) 0.6, Baso % (Auto) 0.4, Absolute Neuts (auto) 7.2, Absolute Lymphs (auto) 1.78, Nucleated RBC % 0 Micro: Microbiology 06/12/21 20:55 Mucosa - Nose SARS-CoV-2 Antigen (Rapid) - Final Cardiology Labs/Tests 06/12/21 18:20: WBC 8.0, RBC 4.92, Hgb 15.0, Hct 45.4, MCV 92.3, MCH 30.5, MCHC 33.0, Plt Count 258, MPV 10.7, Immature Gran % (Auto) 0.300, Neut % (Auto) 76.3 H, Lymph % (Auto) 16.9 L, [place] % (Auto) 4.8, Eos % (Auto) 1.1, Baso % (Auto) 0.6, Absolute Neuts (auto) 6.1, Nucleated RBC % 0 06/12/21 18:20: Sodium 139, Potassium 4.1, Chloride 105, Carbon Dioxide 25.0, A nion Gap 9, BUN 17, Creatinine 0.80, Est GFR (MDRD) Af Amer 92, Est GFR (MDRD) Non-Af 76, BUN/Creatinine Ratio 21.4 H, Glucose 124 H, Calcium 9.8 06/12/21 18:20: B-Natriuretic Peptide 1923.1 H 06/13/21 04:45: Sodium 142, Potassium 3.5, Chloride 106, Carbon Dioxide 30.0, Anion Gap 6, BUN 15, Creatinine 0.66, Est GFR (MDRD) Af Amer 114, Est GFR (MDRD) Non-Af 94, BUN/Creatinine Ratio 22.8 H, Glucose 84, Calcium 8.5 06/13/21 04:45: WBC 9.9, RBC 4.34, Hgb 13.4, Hct 40.0, MCV 92.2, MCH 30.9, MCHC 33.5, Plt Count 221, MPV 10.5, Immature Gran % (Auto) 0.300, Neut % (Auto) 72.9 H, Lymph % (Auto) 18.0 L, [place] % (Auto) 7.8, Eos % (Auto) 0.6, Baso % (Auto) 0.4, Absolute Neuts (auto) 7.2, Nucleated RBC % 0 Rhythm: EKG: ECHO: Stress Test: Cardiac Cath: PCI: CT Surgery: Holter monitor: EPS: PPM: CXR: Chest CT Scan: Radiography Diagnostic Testing: Radiology Impression Chest X-Ray 06/12/21 18:09 IMPRESSION: 1. Mild pulmonary edema. 2. Small effusions. 3. Severe cardiomegaly. 4. Moderate to severe emphysema. Electronically Signed: Khadra Rogers MD at 18:57 EDT Tel , Service support ,
[2021-06-13] MEDS: Aspirin E.C. 81 MG Tablet PO (08:09)
[2021-06-13] MEDS: Potassium Chloride Oral Tablet 20 MEQ 40 MEQ PO (08:09)
[2021-06-13] MEDS: Isosorbide DN 10 MG Tablet 5 MG PO ×2 (08:09→12:50)
[2021-06-13] MEDS: hydrALAZINE 10 MG Tablet PO ×2 (08:09→12:54)
[2021-06-13] MEDS: Carvedilol 6.25 MG Tablet PO ×2 (10:21→21:31)
[2021-06-13] MEDS: Clopidogrel Bisulfate 75 MG Tablet PO (10:21)
[2021-06-13] MEDS: Furosemide 40 MG/4 ML Vial IV ×2 (10:21→16:51)
[2021-06-13] MEDS: 0.9% Saline Lock 10 ML Syringe IV ×2 (10:22→16:51)
--- NOTE | 2021-06-13 10:31 | NURSING ---
pt expressed concern for increase in Coreg dose. pt stated causes me to have low blood pressure This nurse answered pt questions and reminded of pt rights pt is allowed to refuse any care. Also this nurse offered to contact the doctor about concerns before taking medications. pt refused offer pt took medication stating they wont believe me until they see it This nurse offered again to contact doctor before medication given. pt refused again and took Coreg. pt encouraged to notify nurse of low BP S&S reviewed with pt. VSS. pt resting in bed call light within reach.
[2021-06-13 10:32] LABS: Troponin-I HS 921 pg/mL (3.0-54.0)
--- NOTE | 2021-06-13 12:40 | CASEMGMT ---
RN GRACIELA Face to Face with patient for initial transition planning/care coordination assessment. RN CM introduced self and role at [facility]. Patient lying in bed, alert and oriented. Patient willing to participate in assessment and is able to answer all questions appropriately. Care providers, pharmacy, and demographics verified. Patient wishes to discharge home, denies need for home health at this time. Patient states she has no further needs or concerns at this time. CM to follow for discharge planning needs that may arise. PCP: none, patient provided with list of PCP in [facility] Specialists: Lenin life enrichment director Preferred Pharmacy: [facility] on weekends Insurance: [facility] Prescription Benefit: none Living Will/HPOA: yes, she believe it is either her brother Osmel Lau or son Ralf Andres LNOK: son, brother Living Arrangements: Patient lives alone in a 2 story home. Patient states she is independent and able to ambulate the stairs at home. Transportation: self/friends DME/HHC: Patient states she has walker at home if needed. Patient denies further DME. No previous HHC or SNF. Patient is currently active with [facility]. Disposition Plan: Patient to discharge home with family support and follow-up plans in place. Ita RAMSEY, RN, CM
--- NOTE | 2021-06-13 15:30 | PCS.PANDOC ---
PANDEMIC DOCUMENTATION INITIATED: Date: 06/06/2021 Time: 190
--- NOTE | 2021-06-13 16:31 | PN.HOSP_ITS ---
Subjective Subjective Patient states she is feeling much better than she had on admission. She has been weaned to 1 L nasal cannula. She states she is not quite back to baseline. She is involved with palliative care at home. She does understand that the only options to treat her heart failure are medical. Patient does indicate that she is having some significant issues with anxiety and depression and is questioning whether or not there is options for her. She does not want to be on benzodiazepines as she states they make her feel weird. Objective Data Objective Data Vital Signs: Vital Signs Temp Pulse Resp BP Pulse Ox 98.1 F 80 18 108/76 98 06/13/21 16:08 06/13/21 16:08 06/13/21 16:08 06/13/21 16:08 06/13/21 16:08 Oxygen Flow Rate (L/min) 1 Oxygen Delivery Method Room Air Weight: 51.437 kg Body Mass Index (BMI) 21.4 Intake & Output: Intake and Output for Last 24 Hours 06/11/21 06/12/21 06/13/21 23:59 23:59 23:59 Intake Total 1890 / 1890 Output Total 900 / 1350 2650 / 2650 Balance -900 / -1350 -760 / -760 Lab / Micro Data Result Diagrams: 06/13/21 04:45 06/13/21 04:45 Labs: Laboratory Results - last 24 hr 06/12/21 18:20: WBC 8.0, RBC 4.92, Hgb 15.0, Hct 45.4, MCV 92.3, MCH 30.5, MCHC 33.0, RDW Std Deviation 47.8 H, RDW Coeff of Toby 14.1, Plt Count 258, MPV 10.7, Immature Gran % (Auto) 0.300, Neut % (Auto) 76.3 H, Lymph % (Auto) 16.9 L, [place] % (Auto) 4.8, Eos % (Auto) 1.1, Baso % (Auto) 0.6, Absolute Neuts (auto) 6.1, Absolute Lymphs (auto) 1.35, Nucleated RBC % 0 06/12/21 18:20: Sodium 139, Potassium 4.1, Chloride 105, Carbon Dioxide 25.0, Anion Gap 9, BUN 17, Creatinine 0.80, Estim Creat Clear Calc 49.38, Est GFR (MDRD) Af Amer 92, Est GFR (MDRD) Non-Af 76, BUN/Creatinine Ratio 21.4 H, Glucose 124 H, Calcium 9.8, Troponin I High Sens 25 06/12/21 18:20: B-Natriuretic Peptide 1923.1 H 06/12/21 22:15: Troponin I High Sens 559 H* 06/13/21 01:00: Troponin I High Sens 1038 H* 06/13/21 04:45: Sodium 142, Potassium 3.5, Chloride 106, Carbon Dioxide 30.0, Anion Gap 6, BUN 15, Creatinine 0.66, Estim Creat Clear Calc 39.50, Est GFR (MDRD) Af Amer 114, Est GFR (MDRD) Non-Af 94, BUN/Creatinine Ratio 22.8 H, Glucose 84, Calcium 8.5, Troponin I High Sens 1431 H* 06/13/21 04:45: WBC 9.9, RBC 4.34, Hgb 13.4, Hct 40.0, MCV 92.2, MCH 30.9, MCHC 33.5, RDW Std Deviation 47.0 H, RDW Coeff of Toby 13.8, Plt Count 221, MPV 10.5, Immature Gran % (Auto) 0.300, Neut % (Auto) 72.9 H, Lymph % (Auto) 18.0 L, [place] % (Auto) 7.8, Eos % (Auto) 0.6, Baso % (Auto) 0.4, Absolute Neuts (auto) 7.2, Absolute Lymphs (auto) 1.78, Nucleated RBC % 0 06/13/21 09:40: Troponin I High Sens 921 H* Micro: Microbiology 06/12/21 20:55 Mucosa - Nose SARS-CoV-2 Antigen (Rapid) - Final Radiography Diagnostic Testing: Radiology Impression Chest X-Ray 06/12/21 18:09 IMPRESSION: 1. Mild pulmonary edema. 2. Small effusions. 3. Severe cardiomegaly. 4. Moderate to severe emphysema. Electronically Signed: Khadra Rogers MD at 18:57 EDT Tel , Service support , Physical Exam Const alert, oriented x3 and no apparent distress Constitutional Narrative: Older white female sitting up in bed eating breakfast, watching television, appears comfortable, on 1 L nasal cannula with no signs of respiratory distress Exam Limitations: no limitations HEENT head/scalp atraumatic and moist oral mucous membranes Head and Scalp: normocephalic Resp normal respiratory effort, no retractions and no use of accessory muscles Resp Narrative: Few bibasilar crackles Auscultation: crackles; Negative for rales, rhonchi or wheezes Cardio regular rate, regular rhythm, S1 normal heart sound, S2 normal heart sound, no murmurs, no rub, no gallops, no clicks and no JVD GI normal to inspection, nondistended, normoactive bowel sounds, soft to palpation, non-tender and non-distended Extremity Extremity Narrative: Trace bilateral lower extremity edema, no cyanosis or clubbing General Extremity: edema Peripheral Pulses: Yes pulses 2+ throughout Skin no rashes or lesions noted, no wounds, skin turgor normal, no jaundice, no petechiae and no mottling Neuro oriented x3, CN's II-XII intact bilaterally and moves all extremities Sensorium / Orientation: awake and alert Speech: speech normal Psych Mood & Affect: anxious Assessment & Plan Assessment/Plan (1) Respiratory failure: QUALIFIERS: Chronicity: acute on chronic Respiratory failure complication: hypoxia Qualified Code(s): J96.21 - Acute and chronic respiratory failure with hypoxia (2) CHF exacerbation: QUALIFIERS: Heart failure type: systolic Qualified Code(s): I50.23 - Acute on chronic systolic (congestive) heart failure (3) Elevated troponin: (4) Cardiomyopathy: PLAN: Acute hypoxemic respiratory failure secondary to decompensated systolic heart failure -This is now resolved after favorable response to positive pressure ventilation and IV diuretic therapy -Patient is currently on 1 L nasal cannula -Not O2 dependent at baseline -Wean O2 as able Acute decompensated HFrEF -Patient has had extensive work-up with regards to her ischemic cardiomyopathy and she has been deemed nonsurgical at [facility] -Continue diuretic therapy at this time -Carvedilol was increased by cardiology--> patient did refuse the increased dosing -Lisinopril was added but patient states she has had adverse reactions in the past and refused to take this as well -EF is 10 to 15%. -Continue goal-directed therapy as able -Home medications are carvedilol 3.125 mg twice daily, isosorbide 5 mg 3 times daily, Aldactone 12.5 mg as needed and hydralazine 10 mg 3 times daily -Cardiology following-appreciate input CAD/ischemic cardiomyopathy -Patient underwent extensive evaluation in February 2021 both here and at [facility] and was deemed not a candidate for multivessel PCI, CABG, or LVAD therapy -Continue medical management -Patient does not tolerate Entresto or FLAVIO/ARB -Continue aspirin and Plavix -Cardiology following History of tobacco abuse -No specific diagnosis of COPD -Continue I-S Hypertension -Continue above medications Depression/anxiety -Patient is interested in starting an antidepressant -We will start Zoloft 25 mg daily at at bedtime -Patient is aware she may not feel any benefit from this for 3 to 6 weeks and this is a low dose and may need up titration as well -Extremely low dose of Zoloft started as patient has multiple med intolerances but no allergies other than noted in her H&P DVT prophylaxis Continue Lovenox but decreased to 40 mg daily CODE STATUS -Full code Charges/Coding Visit Charges Inpatient E&M: 31783 Subs Hosp L2
[2021-06-13] MEDS: Sertraline 50 MG Tablet 25 MG PO (21:05)
[2021-06-14] VITALS (8 sets, daily range): BP systolic 98–108; BP diastolic 65–76; PULSE 80–93; RESP 18; TEMP 36.6–36.9; O2SAT 93–98
--- NOTE | 2021-06-14 00:04 | CPS ---
pt on room air, does not need bipap on tonight
[2021-06-14 07:33] LABS: Anion Gap 7 (5-15); BUN 17 mg/dL (7-18); BUN/Creat Ratio 24.3 RATIO (10-20); Calcium,Total 8.6 mg/dL (8.5-10.1); Chloride 103 mmol/L (98-107); EST Glomerular Filtration Rate 88 mL/min (>60); Est Glom Filt Rate - Afr Amer 106 mL/min (>60); Glucose 102 mg/dL (74-106); Potassium 3.5 mmol/L (3.5-5.1); Sodium Level 139 mmol/L (136-145)
[2021-06-14] MEDS: Potassium Chloride Oral Tablet 20 MEQ 40 MEQ PO (08:12)
[2021-06-14] MEDS: Aspirin E.C. 81 MG Tablet PO (08:12)
[2021-06-14] MEDS: Clopidogrel Bisulfate 75 MG Tablet PO (09:41)
[2021-06-14] MEDS: Enoxaparin 40 MG/0.4 ML Syringe SC (09:43)
[2021-06-14] MEDS: 0.9% Saline Lock 10 ML Syringe IV (11:31)
[2021-06-14] MEDS: Furosemide 40 MG/4 ML Vial IV (11:31)
--- NOTE | 2021-06-14 14:20 | DS.PCM_ITS ---
Providers Date of Admission: 06/12/21 Primary Care Physician: Kalpana Primary Care Phys Consultations 06/12/21 22:02 Consult: Fishing Tool Supervisor / Pulmonary Medicine Routine Consulting Provider: Sidney Hodgson Reason for Consult: heart failure EMERGENT Consult: No Notified: Yes Date Notified: 06/12/21 Time Notified: 19:55 Method of Notification: Text 06/13/21 00:03 Consult: Cardiology Routine Consulting Provider: Kelly Roberts Reason for Consult: nstemi EMERGENT Consult: No Notified: Yes Date Notified: 06/13/21 Time Notified: 02:00 Method of Notification: Verbal Method of Consult:: In-Person Reason For Visit: ACUTE ON CHRONIC HEART FAILURE WITH REDUCED EF Diagnosis Discharge Diagnosis (1) Respiratory failure: Status: Acute Code(s): J96.90 - Respiratory failure, unspecified, unspecified whether with hypoxia or hypercapnia Qualifiers: Chronicity: acute on chronic Respiratory failure complication: hypoxia Qualified Code(s): J96.21 - Acute and chronic respiratory failure with hypoxia (2) CHF exacerbation: Status: Chronic Code(s): I50.9 - Heart failure, unspecified Qualifiers: Heart failure type: systolic Qualified Code(s): I50.23 - Acute on chronic systolic (congestive) heart failure (3) Elevated troponin: Status: Acute Code(s): R77.8 - Other specified abnormalities of plasma proteins (4) Cardiomyopathy: Status: Chronic Code(s): I42.9 - Cardiomyopathy, unspecified Medications at Discharge Home Medications hydralazine 10 mg PO TID 02/28/21 acetaminophen 325 mg tablet 325 mg PO ONCE PRN 04/21/21 isosorbide dinitrate 5 mg tablet 5 mg PO TID 04/21/21 spironolactone 12.5 mg PO PRN PRN 04/27/21 clopidogrel 75 mg tablet 75 mg PO DAILY 05/05/21 aspirin 81 mg PO DAILY 06/12/21 carvedilol 3.125 mg PO BID 06/12/21 furosemide [Lasix] 20 mg PO DAILY #30 tab 06/14/21 sertraline 25 mg PO QHS #15 tab 06/14/21 Hospital Course Operations None Procedures None Summary of Care Provided Minutes Spent on Discharge: 35 Hospital Course: Mrs. Andres is a 70-year-old white female who presented to the emergency department at [facility] on 06/12/2021 with shortness o f breath. She has a very significant history of coronary disease with ischemic cardiomyopathy and upon presentation had a 3 to 4-day history of increased shortness of breath. On admission she denied any paroxysmal nocturnal dyspnea or orthopnea and she felt her symptoms were predominantly related to anxiety but during her hospital course she became roberson and hypoxic and was in respiratory distress with diaphoresis and tachycardia. She was given Lasix, metoprolol, and placed on BiPAP. She was admitted to the intensive care unit. She responded very quickly to her positive pressure ventilation and Lasix and was back to 1 L nasal cannula the following day. She was seen by cardiology and medication titrations were made although the patient was reluctant given the fact that she had been to [facility] recently and they had significant issues titrating her medications perfectly for her. She was reevaluated by cardiology on 06/14/2021 and her medications were changed back to her baseline with the additional 20 mg of Lasix daily scheduled rather than as needed to be initiated at discharge. She has a known severe cardiomyopathy with an EF of 10 to 15% and has been evaluated recently by [facility] and was deemed a noncandidate for multivessel PCI, CABG or LVAD therapy. She does have an ICD in place. She unfortunately does not tolerate FLAVIO inhibitors/ARB or Entresto. She is on goal- directed therapy otherwise. During her course of stay she expressed an interest in starting an antidepressant to help with her anxiety and depression. We initiated Zoloft 25 mg daily at bedtime as the patient states that she is very sensitive to medications. I did discuss with her she may not feel any benefit for 3 to 6 weeks and that up titration of this medication may be required for benefit. She is to follow-up with Dr. Phelps in the outpatient setting as directed by him. She does not follow with a primary care physician. Both a prescription for Lasix and Zoloft were faxed to her pharmacy. Discharge diagnoses: Acute hypoxic respiratory failure-resolved Acute decompensated HFrEF-resolved CAD Ischemic cardiomyopathy History of tobacco abuse Hypertension Depression Anxiety Physical Exam Const alert, oriented x3 and no apparent distress Constitutional Narrative: Older white female sitting up in bed watching television, appears comfortable, on room air, is upset about her medication changes from yesterday and appears anxious with regards to this General Appearance: cooperative, comfortable, well kempt and well developed Exam Limitations: no limitations HEENT normocephalic, head/scalp atraumatic and moist oral mucous membranes Eyes PERRL, EOMs intact bilaterally and conjunctivae normal Neck no lymphadenopathy, supple and no JVD Neck Narrative: Trachea midline Resp normal respiratory effort, no retractions, no use of accessory muscles and clear to auscultation bilaterally Auscultation: crackles; Negative for rales, rhonchi or wheezes Cardio regular rate, regular rhythm, S1 normal heart sound, S2 normal heart sound, no murmurs, no rub, no gallops, no clicks and no JVD GI normal to inspection, nondistended, normoactive bowel sounds, soft to palpation, non-tender and non-distended Extremity no clubbing, cyanosis or edema Skin no rashes or lesions noted, no wounds, skin turgor normal, no jaundice, no petechiae and no mottling Neuro oriented x3, CN's II-XII intact bilaterally, moves all extremities and no focal motor deficits Sensorium / Orientation: awake and alert Speech: speech normal Psych Psych Narrative: Patient remains anxious and very talkative, flustered over the medication changes made yesterday by cardiology Mood & Affect: anxious Weight / BMI Weight Weight: 51.437 kg Body Mass Index (BMI) 21.4 ABG / Lab / Microbiology Data Result Diagrams: 06/13/21 04:45 06/14/21 06:09 Laboratory: Laboratory Results - last 24 hr 06/14/21 06:09: Sodium 139, Potassium 3.5, Chloride 103, Carbon Dioxide 29.0, Anion Gap 7, BUN 17, Creatinine 0.70, Estim Creat Clear Calc 39.50, Est GFR (MDRD) Af Amer 106, Est GFR (MDRD) Non-Af 88, BUN/Creatinine Ratio 24.3 H, Glucose 102, Calcium 8.6 Microbiology: Microbiology 06/12/21 20:55 Mucosa - Nose SARS-CoV-2 Antigen (Rapid) - Final D/C Instructions Discharge Diet: Low fat / Low cholesterol, 8 Cup Fluid Restriction and 2000 mg Sodium Diet Discharge Activity: Return to Normal Activity Meaningful Use Info Meaningful Use Diagnoses (Choose all that apply): CHF CHF FLAVIO/ARB ordered at discharge?: No Reason FLAVIO/ARB not ordered?: Allergy Documented LVEF (%): 10 Discharge Plan Admission Admit Date/Time: 06/12/21 19:57 Primary Reason for Your Visit: Acute Exacerbation of HFrEF Attending Provider: Muna Woods Primary Care Provider: Care Physician,No Primary Consulting Providers: Kelly Roberts ; Sidney Hodgson Discharge Orders/Prescriptions Prescriptions: New sertraline 50 mg Tablet 25 mg PO QHS Qty: 15 RF: 1 furosemide [Lasix] 20 mg tablet 20 mg PO DAILY Qty: 30 RF: 0 Continued clopidogrel 75 mg tablet 75 mg PO DAILY RF: 0 acetaminophen 325 mg tablet 325 mg PO ONCE PRN (Reason: Pain) RF: 0 isosorbide dinitrate 5 mg tablet 5 mg PO TID RF: 0 hydralazine 10 mg Tablet 10 mg PO TID RF: 0 spironolactone 25 mg tablet 12.5 mg PO PRN PRN (Reason: SWELLING) RF: 0 aspirin 81 MG tablet,delayed release (DR/EC) 81 mg PO DAILY RF: 0 carvedilol 3.125 mg tablet 3.125 mg PO BID RF: 0 Discontinued furosemide 20 mg tablet 10 mg PO DAILY PRN (Reason: edema) RF: 0 Referrals / Follow Up: Livan Phelps MD [STAFF PHYSICIAN] - See Referral Note (as directed) Care Physician,No Primary [Primary Care Provider] - Disposition Disposition (needs filled in before D/C Order can be placed): Home, Self Care Charges/Coding Visit Charges Inpatient E&M: 66984 Disch Hosp
--- NOTE | 2021-06-14 14:43 | PN.CARD_ITS ---
Subjective Subjective The patient states she is feeling much better. She notes her breathing has significantly improved. She states that she has felt anxious and she did request antianxiety medication from internal medicine. Objective Data Vital Signs: Vital Signs Temp Pulse Resp BP Pulse Ox 97.9 F 91 18 108/76 97 06/14/21 11:28 06/14/21 11:28 06/14/21 11:28 06/14/21 11:28 06/14/21 11:28 Oxygen Flow Rate (L/min) 1 Oxygen Delivery Method Room Air Weight: 113 lb 6.4 oz Body Mass Index (BMI) 21.4 Intake & Output: Intake and Output for Last 24 Hours 06/12/21 06/13/21 06/14/21 23:59 23:59 23:59 Intake Total 2090 / 2090 760 / 760 Output Total 900 / 1350 3750 / 4750 1600 / 1600 Balance -900 / -1350 -1660 / -2660 -840 / -840 Lab / Micro Data Result Diagrams: 06/13/21 04:45 06/14/21 06:09 Labs: Laboratory Results - last 24 hr 06/14/21 06:09: Sodium 139, Potassium 3.5, Chloride 103, Carbon Dioxide 29.0, Anion Gap 7, BUN 17, Creatinine 0.70, Estim Creat Clear Calc 39.50, Est GFR (MDRD) Af Amer 106, Est GFR (MDRD) Non-Af 88, BUN/Creatinine Ratio 24.3 H, Glucose 102, Calcium 8.6 Cardiology Labs/Tests 06/14/21 06:09: Sodium 139, Potassium 3.5, Chloride 103, Carbon Dioxide 29.0, Anion Gap 7, BUN 17, Creatinine 0.70, Est GFR (MDRD) Af Amer 106, Est GFR (MDRD) Non-Af 88, BUN/Creatinine Ratio 24.3 H, Glucose 102, Calcium 8.6 Physical Exam Const alert, oriented x3 and no apparent distress Orientation / Consciousness: awake HEENT normocephalic, head/scalp atraumatic and hearing grossly normal bilaterally Eyes PERRL, EOMs intact bilaterally and conjunctivae normal Neck full ROM, supple and no JVD Resp clear to auscultation bilaterally Cardio regular rate, regular rhythm, S1 normal heart sound and S2 normal heart sound GI normal to inspection, nondistended, normoactive bowel sounds Extremity no pedal edema Assessment & Plan Assessment/Plan (1) CAD (coronary artery disease): QUALIFIERS: Coronary Disease-Associated Artery/Lesion type: [place] artery [place] vs. transplanted heart: [place] heart Associated angina: without angina Qualified Code(s): I25.10 - Atherosclerotic heart disease of [place] coronary artery without angina pectoris PLAN: At the present time she appears without any ongoing acute symptoms. She has been evaluated at [facility]. She is deemed not a candidate for revascularization therapy. She will continue medical management. (2) Cardiomyopathy: QUALIFIERS: Cardiomyopathy type: ischemic Qualified Code(s): I 25.5 - Ischemic cardiomyopathy PLAN: She does have an ischemic mediated cardiomyopathy. Again she was not deemed a candidate for revascularization therapy nor was she deemed a candidate for LVAD therapy. She will continue conservative medical therapy. (3) Acute exacerbation of CHF (congestive heart failure): QUALIFIERS: Heart failure type: systolic Qualified Code(s): I50.23 - Acute on chronic systolic (congestive) heart failure PLAN: She appears to be symptomatically improved from her acute on chronic systolic CHF event. She will continue medical management which will include diuretic therapy. (4) ICD (implantable cardioverter-defibrillator) in place: PLAN: She does have an ICD in place. Thus far it has been reported as functioning appropriately. Addt'l Comments At the present time she states she wants to return to her baseline medication that she was placed on by [facility] as it was working well. She will was agreeable to taking additional furosemide to maintain her volume status. She is hopeful to be released home for continued outpatient follow-up. The patient's case has also been discussed and reviewed with Dr. Woods. This note was generated using a voice recognition system and there may be incorrect words, spelling or punctuation that were not noted when reviewing the office note prior to saving.
[2021-06-14] MEDS: Isosorbide DN 10 MG Tablet 5 MG PO (14:55)
[2021-06-14] MEDS: hydrALAZINE 10 MG Tablet PO (14:56)
--- NOTE | 2021-06-14 14:57 | CASEMGMT ---
This RN CM to room to discuss discharge plan and pt states no concerns with going home at time of discharge. Pt states no need for any further therapy or resources at discharge. Pt is aware to call PCP, if she feels she needs therapy once home. Palma MARIE CM
[2021-06-14] MEDS: Acetaminophen 325 MG Tablet 650 MG PO (14:58)
--- NOTE | 2021-06-14 15:22 | PHA.DC.MR ---
Pharmacy Service has performed discharge medication reconciliation for this patient. The patient's discharge medication list was reviewed for discrepancies and discrepancies were resolved. Medication education papers printed but patient was discharged when I went to correctional counselor. Home Medications hydralazine 10 mg PO TID 02/28/21 acetaminophen 325 mg tablet 325 mg PO ONCE PRN 04/21/21 isosorbide dinitrate 5 mg tablet 5 mg PO TID 04/21/21 spironolactone 12.5 mg PO PRN PRN 04/27/21 clopidogrel 75 mg tablet 75 mg PO DAILY 05/05/21 aspirin 81 mg PO DAILY 06/12/21 carvedilol 3.125 mg PO BID 06/12/21 furosemide [Lasix] 20 mg PO DAILY #30 tab 06/14/21 sertraline 25 mg PO QHS #15 tab 06/14/21
--- NOTE | 2021-06-15 14:01 | CASEMGMT ---
RN CM Discharge Follow-up Phone Call: KORY: Geri Strata: 4 Call Date: 06/15/21 Discharge Date: 06/14/21 Time of Call: 1400 Duration: 1 min Admitting Diagnosis: Acute on chronic CHF RN CM attempted to complete follow-up phone call after recent hospitalization. No answer, voice message left with return contact information.
== END 2021-06-14 15:26 | disposition home or self-care (01) | DRG 291 ==
LOC: ED 20:09 → ICU 20:20 → PCU 06-13 13:49
PROVIDERS: Admitting Provider Hospitalist; Emergency Provider Emergency Medicine; Visit Provider Internal Medicine
DX: I11.0 Hypertensive heart disease with heart failure (principal); J96.21 Acute and chronic respiratory failure with hypoxia; I50.23 Acute on chronic systolic (congestive) heart failure; J43.9 Emphysema, unspecified; I25.5 Ischemic cardiomyopathy; Z20.822 Contact with and (suspected) exposure to COVID-19; I25.10 Atherosclerotic heart disease of native coronary artery without angina pectoris; F32.9 Major depressive disorder, single episode, unspecified; F41.9 Anxiety disorder, unspecified; Z79.02 Long term (current) use of antithrombotics/antiplatelets; Z79.82 Long term (current) use of aspirin; Z79.899 Other long term (current) drug therapy; Z88.2 Allergy status to sulfonamides; Z87.891 Personal history of nicotine dependence; Z95.810 Presence of automatic (implantable) cardiac defibrillator
CPT/HCPCS: 36415; 71046; 80048; 83880; 84484; 85025; 87426; 93005; 94002; 94003; 97802; 99285; A4216; J1940

== ENCOUNTER 2021-08-16 18:22 | Emergency (ER) | payer MEDICARE, SELFPAY ==
[2021-08-16 18:24] VITALS: BP 139/100; PULSE 91; RESP 20; TEMP 36.5; O2SAT 99; BMI 23.0
--- NOTE | 2021-08-16 18:54 | RAD_ITS ---
INDICATION: cough EXAMINATION/TECHNIQUE: X-RAY - XR Chest 1 View COMPARISON: 06/12/2021. FINDINGS: Chronic lung changes. Tortuous and calcified thoracic aorta. The heart is markedly enlarged. Left-sided cardiac device. No pleural effusion or pneumothorax. Degenerative changes of the thoracic spine and shoulders. RAD/Chest 1 View (Portable) IMPRESSION: No acute radiographic abnormalities. Marked cardiomegaly. Chronic lung changes. Electronically Signed: Panfilo Duran MD at 20:05 EDT Tel , Service support ,
--- NOTE | 2021-08-16 18:54 | EKG12_ITS ---
Test Reason : DYSRHYTHMIA Blood Pressure : / mmHG Vent. Rate : 089 BPM Atrial Rate : 089 BPM P-R Int : 162 ms QRS Dur : 184 ms QT Int : 436 ms P-R-T Axes : -07 -14 093 degrees QTc Int : 530 ms Atrial-sensed ventricular-paced rhythm Biventricular pacemaker detected Abnormal ECG Confirmed by BRAEDEN ALCARAZ, MIL ([id number]), assistant editor HILL JERNIGAN ([id number]) on 08/18/2021 9:30:46 AM Referred By: TREY Confirmed By:MIL DERAS MD
[2021-08-16 19:04] VITALS: BP 141/95; PULSE 90; RESP 16; O2SAT 96
[2021-08-16] MEDS: Metoclopramide 10 MG/2 ML Vial 5 MG IV (19:04)
[2021-08-16 19:07] LABS: Absolute Lymphocyte Count 1.52 X10^3/uL (0.83-4.51); Absolute Neutrophil Count 6.6 X10^3/uL (2.0-7.7); Basophil# 0.07 X10^3/uL; Basophil% 0.8 % (0-1); Eosinophil# 0.15 X10^3/uL; Eosinophils% 1.7 % (0-5); Hematocrit 43.3 % (37-47); Hemoglobin 14.3 g/dL (12.0-15.0); Lymphocyte # 1.52 X10^3/ul (0.83-4.51); Lymphocyte % 17.3 % (19-41); Mean Corpuscular Volume 90.8 fL (81-99); Mean Platelet Vol. 10.8 fl (6.2-12.0); Monocyte# 0.43 X10^3/uL; Monocyte% 4.9 % (0-10); NRBC Flagged by Analyzer 0 % (0-5); Neutrophil # 6.62 X10^3/uL (2.7-7.7); Neutrophil % 75.1 % (47-70); Platelet Count 229 K/mm3 (150-450); RBC Distribution Width CV 14.4 % (11.6-14.6); RBC Distribution Width SD 48.1 fl (35.1-43.9); Red Blood Count 4.77 M/mm3 (4.2-5.4); White Blood Count 8.8 K/mm3 (4.4-11.0)
--- NOTE | 2021-08-16 19:09 | EX.ED.DYSGE1 ---
HPI History of Present Illness Chief Complaint: Anxiety Informant: patient Narrative Narrative: Patient presents for evaluation of vertigo symptoms pressure in right ear with nausea and vomiting after awakening on the couch to 3 hours ago. She felt motion threw up 3 times. Nonbloody. She took a Dramamine symptoms mildly improving however still there. History of infection induced vertigo in the past. Denies headache ear pain. She says last time she had sinus infection. Denies any current sinus symptoms. In addition she reports she presents secondary to her chronic cardiac history. AICD since 2011 she states in January referred to [facility] after cath, reported treatment would be for an LVAD. Should not want this at this time. She denies chest pain shortness of breath. She states with infections and stress can put her into heart failure. She did take a water pill today secondary to evaluation of her weight. She does not get swelling her legs. Denies orthopnea. States mild cough. No other complaints. Patient lives alone. Ambulates without any assistance. No home oxygen. Prior similar symptoms: Yes PFSH PFSH Medical History Anxiety Atherosclerotic heart disease of [place] coronary artery without angina pectoris CAD (coronary artery disease) Cardiomyopathy CHF (congestive heart failure), NYHA class IV Congestive heart failure (CHF) Coronary artery disease Depression Elevated troponin Former smoker Hypertension Hypertension ICD (implantable cardioverter-defibrillator) in place ICD (implantable cardioverter-defibrillator) in place Pacemaker Vertigo Home Medications hydralazine 10 mg PO TID 02/28/21 [History Last Taken 04/06/21 13:30] acetaminophen 325 mg tablet 325 mg PO ONCE PRN 04/21/21 [History Last Taken Unknown] isosorbide dinitrate 5 mg tablet 5 mg PO TID 04/21/21 [History Last Taken Unknown] spironolactone 12.5 mg PO PRN PRN 04/27/21 [History Last Taken Unknown] aspirin 81 mg PO DAILY 06/12/21 [History Last Taken Unknown] carvedilol 3.125 mg PO BID 06/12/21 [History Last Taken Unknown] sertraline 25 mg PO QHS #15 tab 06/14/21 [Rx Last Taken Unknown] furosemide 20 mg tablet 20 mg PO DAILY PRN tab 06/20/21 [History Last Taken Unknown] ondansetron 4 mg PO Q6H PRN #10 tab 08/16/21 [Rx Last Taken Unknown] Allergy/AdvReac Type Severity Reaction Status Date / Time Sulfa (Sulfonamide Allergy Rash Verified 08/16/21 18:30 Antibiotics) amoxicillin AdvReac Other Verified 08/16/21 18:30 Rwnsoty-Hhh-Ylz Reductase AdvReac palpitation Verified 08/16/21 18:30 Inhibitor s Family History Father Aneurysm Grandmother Congestive heart failure Brother Diabetes Grandfather Myocardial infarction, Onset Age: 60 Grandfather Myocardial infarction, Onset Age: 60 Other Heart disease Surgical History History of left heart catheterization (LHC) (~01/31/21) Social History Smoking Status: Former smoker alcohol intake: never substance use type: does not use caffeine: Yes Type: coffee ROS ROS ED Constitutional Constitutional ED: Denies chills, fever(s) or sweats Eyes Eyes: Denies change in vision ENT ENT ED: Denies dysphagia or sore throat Cardiovascular Cardiovascular: Denies chest pain, leg edema, palpitations or racing heartbeat Respiratory/Chest Respiratory/Chest: Denies cough, dyspnea or dyspnea on exertion Gastrointestinal Gastrointestinal: Reports nausea; Denies abdominal pain, diarrhea or vomiting Genitourinary Genitourinary ED: Denies dysuria, hematuria or urinary frequency Musculoskeletal Musculoskeletal: Denies back pain, extremity pain or neck pain Integumentary Denies rash or wounds Neurologic Neurologic: Reports other Details: Vertigo ; Denies headache(s), paresthesias or weakness EXAM Physical Exam Const Vital Signs: 08/16/21 18:24 08/16/21 19:04 08/16/21 20:15 Temperature 97.7 F L 98.4 F Temperature Source Oral Pulse Rate 91 90 98 Respiratory Rate 20 H 16 18 Blood Pressure 139/100 H 141/95 H 128/98 H Blood Pressure Mean 113 110 Pulse Ox 99 96 94 Oxygen Delivery Method Room Air Room Air Positive well nourished and well developed General Appearance ED: well developed and NAD HEENT Reports TM's clear HEENT Narrative: Mild dry mucosal membranes normocephalic and atraumatic Tympanic Membrane ED: Yes TM's clear Eyes PERRL, EOMs intact bilaterally and conjunctivae normal Eyes Narrative: No nystagmus General Eye ED: Yes normal appearance of both eyes Neck no lymphadenopathy and supple General: Negative for tenderness Chest Wall Chest Narrative: Left upper chest AICD device. Chest: Negative for tenderness Resp normal respiratory effort and normal air movement Effort and Inspection: symmetric chest movement; Negative for respiratory distress Cardio regular rate, regular rhythm and no murmurs Peripheral Pulses: pulses 2+ throughout GI normal to inspection, nondistended, normoactive bowel sounds and non-tender Palpation: Negative for guarding or rebound tenderness present Back/Spine no CVA tenderness and no thoracic nor lumbar tenderness Extremity normal to inspection General Extremety ED: Negative for edema or tenderness General Extremity: Negative for edema Neuro oriented x3, CN's II-XII intact bilaterally and no sensory deficits noted Sensorium / Orientation: awake and alert Skin no rashes or lesions noted and no wounds MDM MDM MDM Narrative Medical decision making narrative: Patient presents with vertigo symptoms. There is no focal deficits no nystagmus. Significant cardiac history however denies any chest pains or lightheaded symptoms. EKG notes a paced regular. Basic labs noted positive for hypokalemia with potassium 3.2. She is given oral replacement. She was treated with Reglan IV, reevaluation she states she did prefer her Zofran to use as needed. She was ambulated with no return of symptoms. Prescription of Zofran filled through bedside to med. She will follow-up as an outpatient. Return precautions discussed. All questions were answered. Lab Data Attestation: I reviewed the patient's lab results. Labs: Laboratory Results - last 24 hr 08/16/21 08/16/21 19:00 19:00 WBC 8.8 RBC 4.77 Hgb 14.3 Hct 43.3 MCV 90.8 MCH 30.0 MCHC 33.0 RDW Std Deviation 48.1 H RDW Coeff of Toby 14.4 Plt Count 229 MPV 10.8 Immature Gran % (Auto) 0.200 Neut % (Auto) 75.1 H Lymph % (Auto) 17.3 L [place] % (Auto) 4.9 Eos % (Auto) 1.7 Baso % (Auto) 0.8 Absolute Neuts (auto) 6.6 Absolute Lymphs (auto) 1.52 Nucleated RBC % 0 Sodium 142 Potassium 3.2 L Chloride 104 Carbon Dioxide 29.0 Anion Gap 9 BUN 19 H Creatinine 0.86 Estim Creat Clear Calc 45.93 Est GFR (MDRD) Af Amer 84 Est GFR (MDRD) Non-Af 69 BUN/Creatinine Ratio 22.0 H Glucose 142 H Calcium 9.4 Radiography Chest X-Ray - ED: 1 View, Read by ED Physician and Read by Radiologist Diagnostic Testing: Clinical Impression(s) from Imaging Studies Chest X-Ray 08/16/21 18:54 IMPRESSION: No acute radiographic abnormalities. Marked cardiomegaly. Chronic lung changes. Electronically Signed: Panfilo Duran MD at 20:05 EDT Tel , Service support , EKG Initial EKG: Attestation: I personally reviewed and interpreted this EKG as follows: Comments: Biventricular paced rhythm rate of 89. Discharge Plan Triage Chief Complaint: Anxiety ED Provider: Diego Palacios Dx/Rx/DC Orders Clinical Impression: Vertigo, Acute hypokalemia Instructions: ED Hypokalemia, ED Vertigo, Unspecified Prescriptions: New ondansetron 4 mg tablet,disintegrating 4 mg PO Q6H PRN (Reason: nausea and vomiting) Qty: 10 RF: 0 No Action acetaminophen 325 mg tablet 325 mg PO ONCE PRN (Reason: Pain) RF: 0 isosorbide dinitrate 5 mg tablet 5 mg PO TID RF: 0 furosemide [Lasix] 20 mg tablet 20 mg PO DAILY PRN (Reason: Weight Gain) RF: 0 hydralazine 10 mg Tablet 10 mg PO TID RF: 0 spironolactone 25 mg tablet 12.5 mg PO PRN PRN (Reason: SWELLING) RF: 0 aspirin 81 MG tablet,delayed release (DR/EC) 81 mg PO DAILY RF: 0 Hold Instructions: Bruising carvedilol 3.125 mg tablet 3.125 mg PO BID RF: 0 sertraline 50 mg Tablet 25 mg PO QHS Qty: 15 RF: 1 Primary Care Provider: Care Physician,No Primary Referrals: Care Physician,No Primary [Primary Care Provider] - Activity Restrictions/Additional Instructions: Take medication as needed. Follow-up with your doctor. Return if any worsening symptoms. Disposition Disposition: Home, Self Care Discharge Date/Time: 08/16/21 20:25
[2021-08-16 19:20] LABS: Anion Gap 9 (5-15); BUN 19 mg/dL (7-18); Calcium,Total 9.4 mg/dL (8.5-10.1); Chloride 104 mmol/L (98-107); Creatinine, Serum 0.86 mg/dL (0.55-1.02); EST Glomerular Filtration Rate 69 mL/min (>60); Est Glom Filt Rate - Afr Amer 84 mL/min (>60); Estimated Creatinine Clearance 45.93 ml/min; Glucose 142 mg/dL (74-106); Potassium 3.2 mmol/L (3.5-5.1); Sodium Level 142 mmol/L (136-145)
[2021-08-16] MEDS: Potassium Chloride Oral Tablet 20 MEQ 40 MEQ PO (19:43)
[2021-08-16 20:15] VITALS: BP 128/98; PULSE 98; RESP 18; TEMP 36.9; O2SAT 94
== END 2021-08-16 20:25 | disposition home or self-care (01) ==
PROVIDERS: Emergency Provider Emergency Medicine
DX: R42 Dizziness and giddiness (principal); E87.6 Hypokalemia; I25.10 Atherosclerotic heart disease of native coronary artery without angina pectoris; I11.0 Hypertensive heart disease with heart failure; I50.9 Heart failure, unspecified; I42.9 Cardiomyopathy, unspecified; F32.A Depression, unspecified; F41.9 Anxiety disorder, unspecified; Z79.82 Long term (current) use of aspirin; Z79.899 Other long term (current) drug therapy; Z87.891 Personal history of nicotine dependence; Z95.810 Presence of automatic (implantable) cardiac defibrillator
CPT/HCPCS: 71045; 80048; 85025; 93005; 96374; 99285; A4216

== ENCOUNTER 2021-10-27 16:05 | Inpatient (IN) | payer MEDICARE, SELFPAY ==
[2021-10-27] VITALS (14 sets, daily range): BP systolic 119–152; BP diastolic 83–128; PULSE 88–126; RESP 14–30; TEMP 35.1–36.6; O2SAT 90–99; BMI 24.7; BMI 23.0
--- NOTE | 2021-10-27 16:35 | EKG12_ITS ---
Test Reason : RESP DISTRESS Blood Pressure : / mmHG Vent. Rate : 123 BPM Atrial Rate : 123 BPM P-R Int : 138 ms QRS Dur : 188 ms QT Int : 418 ms P-R-T Axes : 063 -33 115 degrees QTc Int : 598 ms Atrial-sensed ventricular-paced rhythm Biventricular pacemaker detected Abnormal ECG Confirmed by BRAEDEN ALCARAZ, MIL ([id number]), market editor GHANSHYAM BROWN ([id number]) on 10/31/2021 10:22:14 AM Referred By: CHRIS Confirmed By:MIL DERAS MD
--- NOTE | 2021-10-27 16:38 | EDS_ITS ---
HPI History of Present Illness Chief Complaint: Shortness of Breath Informant: patient and EMS Onset/Context/Timing Worsened by: Exertion and Coughing Relieved by: Oxygen (& BIPAP) Associated Symptoms cough Chest Pain: Positive for None Narrative Narrative: Patient states she has mainly been short of breath today, but she has been sick for about 2 weeks. She states she has been coughing a little. Feeling weak and tired. Mild shortness of breath. No chest pain. Maybe some subjective fevers, maybe feeling achy. This is the first trip to a provider, EMS states they picked her up in respiratory distress, tripoding, cyanotic cold fingers and toes. They were not able to get a pulse ox early on, but after gett ing her on BiPAP she picked up in the mid 80s. History from the patient is limited due to BiPAP, which is helping, and I cannot talk, alluding to the fact that she is very dyspneic and on BiPAP. 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 Pacemaker Vertigo Home Medications hydralazine 10 mg PO TID 02/28/21 [History Last Taken 04/06/21 13:30] acetaminophen 325 mg tablet 325 mg PO ONCE PRN 04/21/21 [History Last Taken Unknown] isosorbide dinitrate 5 mg tablet 5 mg PO TID 04/21/21 [History Last Taken Unknown] spironolactone 12.5 mg PO PRN PRN 04/27/21 [History Last Taken Unknown] aspirin 81 mg PO DAILY 06/12/21 [History Last Taken Unknown] carvedilol 3.125 mg PO BID 06/12/21 [History Last Taken Unknown] sertraline 25 mg PO QHS #15 tab 06/14/21 [Rx Last Taken Unknown] furosemide 20 mg tablet 20 mg PO DAILY PRN tab 06/20/21 [History Last Taken Unknown] ondansetron 4 mg PO Q6H PRN #10 tab 08/16/21 [Rx Last Taken Unknown] Allergy/AdvReac Type Severity Reaction Status Date / Time Sulfa (Sulfonamide Allergy Rash Verified 10/27/21 16:11 Antibiotics) amoxicillin AdvReac Other Verified 10/27/21 16:11 Hplolst-VUS-KkI Reductase AdvReac palpitation Verified 10/27/21 16:11 Inhibitor s [Veobemj-Tiq-Uub Reductase Inhibitor] Family History Father Aneurysm Grandmother Congestive heart failure Brother Diabetes Grandfather Myocardial infarction, Onset Age: 60 Grandfather Myocardial infarction, Onset Age: 60 Other Heart disease Surgical History History of left heart catheterization (LHC) (~01/31/21) Social History Smoking Status: Former smoker alcohol intake: never substance use type: does not use caffeine: Yes Type: coffee ROS ROS ED Constitutional Constitutional ED: Reports body ache(s), chills, fatigue, fever(s), malaise and subjective; Denies headache(s) Eyes Eyes: Denies change in vision or diplopia ENT ENT ED: Denies rhinorrhea or sore throat Cardiovascular Cardiovascular: Denies chest pain or palpitations Respiratory/Chest Respiratory/Chest: Reports cough, dyspnea and dyspnea on exertion Gastrointestinal Gastrointestinal: Denies abdominal pain, diarrhea, nausea or vomiting Genitourinary Genitourinary ED: Denies dysuria or hematuria Musculoskeletal Musculoskeletal: Denies back pain or neck pain Integumentary Denies abscess or rash Neurologic Neurologic: Denies headache(s), paresthesias or weakness Psychiatric Psychiatric: Denies anxiety or suicidal thoughts EXAM Physical Exam Const Vital Signs: 10/27/21 16:07 10/27/21 16:23 10/27/21 17:02 Temperature 95.1 F L Temperature Source Temporal Pulse Rate 126 H 123 H Respiratory Rate 27 H 22 H Respiratory Effort Labored Respiratory Depth Shallow Respiratory Pattern Normal Tachypnea Blood Pressure Blood Pressure Mean Pulse Ox 95 93 Oxygen Delivery Method CPAP Oxygen Flow Rate (L/min) Fraction of Inspired Oxygen (FIO2) 90 10/27/21 17:17 10/27/21 17:45 10/27/21 18:00 Temperature 95.1 F L 95.6 F L Temperature Source Temporal Temporal Pulse Rate 125 H 124 H 105 H Respiratory Rate 23 H 30 H 16 Respiratory Effort Respiratory Depth Respiratory Pattern Tachypnea Blood Pressure 152/128 H 144/110 H Blood Pressure Mean 136 121 Pulse Ox 98 99 90 Oxygen Delivery Method Bi-pap Bi-pap Oxygen Flow Rate (L/min) Fraction of Inspired Oxygen (FIO2) 35 10/27/21 18:57 10/27/21 19:00 Temperature 97.6 F L Temperature Source Oral Pulse Rate 94 93 Respiratory Rate 21 H Respiratory Effort Respiratory Depth Respiratory Pattern Blood Pressure 125/96 H 124/104 H Blood Pressure Mean 110 Pulse Ox 95 Oxygen Delivery Method Nasal Cannula Oxygen Flow Rate (L/min) 5 Fraction of Inspired Oxygen (FIO2) Positive well nourished and well developed Constitutional Narrative: Ill-appearing, in respiratory distress General Appearance ED: well developed HEENT Reports moist mucous membranes normocephalic and atraumatic Eyes PERRL and EOMs intact bilaterally Neck full ROM and supple Resp Resp Narrative: Speaking in 1-3 word sentences Effort and Inspection: tachypneic and respiratory distress; Negative for stridor Auscultation: rhonchi lower bilaterally Cardio regular rate, regular rhythm and no murmurs Rate: tachycardic GI non-tender and non-distended Auscultation: normoactive bowel sounds Palpation: soft Back/Spine no CVA tenderness General Back: other FROM Extremity normal to inspection and no calf tenderness General Extremety ED: Negative for edema, pulses abnormal or tenderness General Extremity: Negative for edema or pulses abnormal Neuro oriented x3, CN's II-XII intact bilaterally and no sensory deficits noted Sensorium / Orientation: awake and alert Motor Exam: strength 5/5 throughout Skin no rashes or lesions noted and no wounds MDM MDM MDM Narrative Medical decision making narrative: When asked if patient got worse which she want to be intubated, she states no absolutely not, even if she were to she does not want to be intubated. Please see attached capacity statement below. Patient was maintained on BiPAP, she was given a nitroglycerin, IV Lasix, and after her ABG returned showing excellent oxygenation and respiratory acidosis, we lowered her FiO2 level down to 35%. She continued to gradually improve, to the point where she wanted to be off of the BiPAP so we give her a trial and she actually did pretty well, on a 5 L nasal cannula she is 95% and at this time breathing adequately without BiPAP. She did urinate a bit. Her heart rate decreased from the 120s to 93, and her respiratory rate currently at 21, blood pressure 124/104. Her work-up is consistent with congestive heart failure, there are infiltrates at the bases which are nonspecific, there was significant delay on her Covid test, but about 3 hours into her stay it returns positive. It is unknown how long she has had this, she has had symptoms for 2 weeks she states, therefore she no longer is a candidate for most Covid treatments, but I will start her on dexamethasone and we will admit her to PCU. Lab Data Attestation: I reviewed the patient's lab results. Labs: Laboratory Results - last 24 hr 10/27/21 10/27/21 10/27/21 16:40 16:40 16:40 WBC 6.0 RBC 4.95 Hgb 15.2 H Hct 47.8 H MCV 96.6 MCH 30.7 MCHC 31.8 L RDW Std Deviation 55.8 H RDW Coeff of Toby 15.6 H Plt Count 234 MPV 10.6 Immature Gran % (Auto) 0.200 Neut % (Auto) 64.5 Lymph % (Auto) 27.3 Stewart % (Auto) 7.2 Eos % (Auto) 0.3 Baso % (Auto) 0.5 Absolute Neuts (auto) 3.9 Absolute Lymphs (auto) 1.64 Nucleated RBC % 0 Sodium 133 L Potassium 4.0 Chloride 96 L Carbon Dioxide 23.0 Anion Gap 14 BUN 15 Creatinine 1.05 H Estim Creat Clear Calc 37.08 Est GFR (MDRD) Af Amer 66 Est GFR (MDRD) Non-Af 55 L BUN/Creatinine Ratio 14.3 Glucose 268 H Calcium 9.2 Troponin I High Sens 122 H* B-Natriuretic Peptide 4506.0 H ABG Data ABG results: ABG 10/27/21 17:19 Specimen Type ART Sample Site R Brach pH 7.15 L* Bicarbonate Actual 22.3 Total CO2 24 Base Excess -7 L O2 Saturation 100 H O2 % 90 ABG pCO2 64.0 H ABG pO2 317 H* Carroll Test Positive Respiration Rate 12 O2 Delivery Device BiPAP Vent Mode BiLevel Crit Call To/Read Back Yes Blood Gas Notified Whom mohan Clinical Comments 04/06 16 Rate 90% Radiography Diagnostic Testing: Clinical Impression(s) from Imaging Studies Chest X-Ray 10/27/21 16:45 IMPRESSION: There are bilateral pleural effusions. There are bilateral infiltrates. 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, Discussing w/Consultants, Arranging Admission or Transfer and Performing Direct Patient Care at Bedside Discharge Plan Dx/Rx/DC Orders Clinical Impression: Acute respiratory failure with hypoxia and hypercapnia, Acute exacerbation of CHF (congestive heart failure), Pneumonia due to COVID-19 virus Disposition Disposition: [facility] Capacity Capacity Assessment Tool Can the patient make a choice & communicate that choice?: Yes Can the patient understand benefits, risks and alternatives?: Yes Can the patient make a logical, rational choice?: Yes Is the choice the patient makes consistent w/ their values?: Yes Is there an impending, emergent risk to the patient?: Yes Does the patient have an Advance Directive?: No Is there a Surrogate Available?: No
--- NOTE | 2021-10-27 16:45 | RAD_ITS ---
STUDY: X-RAY CHEST REASON FOR EXAM: Female, 71 years old. CHEST PAIN Technologist Notes respiratory distress. 86% on CPAP placed by squad, fingers and toes are purple sob TECHNIQUE: XR Chest 1 View COMPARISON: 08.16.21 FINDINGS: There are bilateral pleural effusions. There are bilateral infiltrates. There is a left sided pacemaker batterypack. There is borderline cardiomegaly. Normal mediastinum and sp. Normal visualized pulmonary arteries. There is atherosclerotic calcification of the aortic arch with tortuosity. There are diffuse degenerative changes of the visualized thoracic spine. There is degenerative osteoarthritis of the bilateral shoulders. There is no demonstrated abnormality of the visualized soft tissue structures of the upper abdomen. RAD/Chest 1 View (Portable) IMPRESSION: There are bilateral pleural effusions. There are bilateral infiltrates. Electronically Signed: Sundeep Gomez MD at 16:59 EST , Service support ,
[2021-10-27 16:56] LABS: Absolute Lymphocyte Count 1.64 X10^3/uL (0.83-4.51); Absolute Neutrophil Count 3.9 X10^3/uL (2.0-7.7); Basophil# 0.03 X10^3/uL; Basophil% 0.5 % (0-1); Eosinophil# 0.02 X10^3/uL; Eosinophils% 0.3 % (0-5); Hematocrit 47.8 % (37-47); Hemoglobin 15.2 g/dL (12.0-15.0); Lymphocyte # 1.64 X10^3/ul (0.83-4.51); Lymphocyte % 27.3 % (19-41); Mean Corp Hgb Conc 31.8 g/dL (32-36); Mean Corpuscular Hgb 30.7 pg (27.0-32.0); Mean Corpuscular Volume 96.6 fL (81-99); Mean Platelet Vol. 10.6 fl (6.2-12.0); Monocyte# 0.43 X10^3/uL; Monocyte% 7.2 % (0-10); NRBC Flagged by Analyzer 0 % (0-5); Neutrophil # 3.87 X10^3/uL (2.7-7.7); Neutrophil % 64.5 % (47-70); Platelet Count 234 K/mm3 (150-450); RBC Distribution Width CV 15.6 % (11.6-14.6); RBC Distribution Width SD 55.8 fl (35.1-43.9); Red Blood Count 4.95 M/mm3 (4.2-5.4)
[2021-10-27] MEDS: Furosemide 20 MG/2 ML VIAL IV (17:21)
[2021-10-27 17:26] LABS: Allen Test Positive; Base Excess -7 mmol/L (-2 to +2); Bicarbonate 22.3 mmol/L (22-26); Blood Gas Specimen Type ART; FI02 90; Mode BiLevel; O2 Delivery Device BiPAP; PO2 317 mmHG (75-100); RR 12; SITE R Brach; SO2 100 % (95-99); Total Carbon Dioxide 24 mmol/L; pH 7.15 (7.35-7.45)
--- NOTE | 2021-10-27 17:45 | CPS ---
Pt's hands and feet are ice cold, nothing helps warm them. feet remain slightly blue and P-ox on ear reads 70-80's but ABG showed PO2 was >300 on 90% on the BIPAP.
[2021-10-27 18:07] LABS: Anion Gap 14 (5-15); BUN 15 mg/dL (7-18); BUN/Creat Ratio 14.3 RATIO (10-20); Calcium,Total 9.2 mg/dL (8.5-10.1); Chloride 96 mmol/L (98-107); Creatinine, Serum 1.05 mg/dL (0.55-1.02); EST Glomerular Filtration Rate 55 mL/min (>60); Est Glom Filt Rate - Afr Amer 66 mL/min (>60); Estimated Creatinine Clearance 37.08 ml/min; Glucose 268 mg/dL (74-106); Sodium Level 133 mmol/L (136-145); Troponin-I HS 122 pg/mL (3.0-54.0)
[2021-10-27] MEDS: Nitroglycerin SL (ED/IMG/CATH) 0.4 MG TABLET SL (18:57)
[2021-10-27] MEDS: dexAMETHasone 10 MG/ML Vial 6 MG IV (19:19)
--- NOTE | 2021-10-27 19:27 | PCM.HP.STD ---
[facility] - General General Date of Admission: 10/27/21 Date of Service: 10/27/21 Chief Complaint: SOB [facility] Narrative TIFFANY CARDONA, is a 71 F with a significant history of congestive heart failure with severely reduced ejection fraction who presents to the emergency department with shortness of breath that started a day before presentation and worsened on the day of presentation. Reportedly when paramedics found patient, patient was severely short of breath, tripoding, and with cyanotic toes. Patient was placed on the CPAP by paramedics. At the emergency department patient was placed on BiPAP and eventually weaned onto nasal cannula oxygen. Patient thinks her symptoms developed from a panic attack. She report wheezes. She denies chest pain. She denies palpitations. She reports swelling in her left leg. She has poor appetite. She has fatigue. She has had some weight gain. She is unable to tell the exact weight gain and the period. Patient reported that at about 2 weeks ago she had a Covid-like symptoms. Reportedly she was in close contact with her family who had Covid. Covid vaccination status: Received J&J Covid vaccination after which she got sick so she could not get a booster. 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 Pacemaker Vertigo Home Medications hydralazine 10 mg PO TID 02/28/21 [History Last Taken 04/06/21 13:30] acetaminophen 325 mg tablet 325 mg PO ONCE PRN 04/21/21 [History Last Taken Unknown] isosorbide dinitrate 5 mg tablet 5 mg PO TID 04/21/21 [History Last Taken Unknown] spironolactone 12.5 mg PO PRN PRN 04/27/21 [History Last Taken Unknown] aspirin 81 mg PO DAILY 06/12/21 [History Last Taken Unknown] carvedilol 3.125 mg PO BID 06/12/21 [History Last Taken Unknown] sertraline 25 mg PO QHS #15 tab 06/14/21 [Rx Last Taken Unknown] furosemide 20 mg tablet 20 mg PO DAILY PRN tab 06/20/21 [History Last Taken Unknown] ondansetron 4 mg PO Q6H PRN #10 tab 08/16/21 [Rx Last Taken Unknown] guaifenesin [Mucinex] 600 mg PO PRN 10/27/21 [History Last Taken Unknown] Allergy/AdvReac Type Severity Reaction Status Date / Time Sulfa (Sulfonamide Allergy Rash Verified 10/27/21 16:11 Antibiotics) amoxicillin AdvReac Other Verified 10/27/21 16:11 Ohcqiqc-BXU-FkL Reductase AdvReac palpitation Verified 10/27/21 16:11 Inhibitor s [Glluggu-Ghk-Sdr Reductase Inhibitor] Family History Father Aneurysm Grandmother Congestive heart failure Brother Diabetes Grandfather Myocardial infarction, Onset Age: 60 Grandfather Myocardial infarction, Onset Age: 60 Other Heart disease Surgical History History of left heart catheterization (LHC) (~01/31/21) Social History Smoking Status: Former smoker alcohol intake: never substance use type: does not use caffeine: Yes Type: coffee ROS ROS Narrative Pertinent positives and pertinent negatives as noted in HPI. All other systems were reviewed and are negative. Vital Signs Vital Signs Vital Signs: 10/27/21 16:07 10/27/21 16:23 10/27/21 17:02 Temperature 95.1 F L Temperature Source Temporal Pulse Rate 126 H 123 H Respiratory Rate 27 H 22 H Respiratory Effort Labored Respiratory Depth Shallow Respiratory Pattern Normal Tachypnea Blood Pressure Blood Pressure Mean Pulse Ox 95 93 Oxygen Delivery Method CPAP Oxygen Flow Rate (L/min) Fraction of Inspired Oxygen (FIO2) 90 10/27/21 17:17 10/27/21 17:45 10/27/21 18:00 Temperature 95.1 F L 95.6 F L Temperature Source Temporal Temporal Pulse Rate 125 H 124 H 105 H Respiratory Rate 23 H 30 H 16 Respiratory Effort Respiratory Depth Respiratory Pattern Tachypnea Blood Pressure 152/128 H 144/110 H Blood Pressure Mean 136 121 Pulse Ox 98 99 90 Oxygen Delivery Method Bi-pap Bi-pap Oxygen Flow Rate (L/min) Fraction of Inspired Oxygen (FIO2) 35 10/27/21 18:57 10/27/21 19:00 Temperature 97.6 F L Temperature Source Oral Pulse Rate 94 93 Respiratory Rate 21 H Respiratory Effort Respiratory Depth Respiratory Pattern Blood Pressure 125/96 H 124/104 H Blood Pressure Mean 110 Pulse Ox 95 Oxygen Delivery Method Nasal Cannula Oxygen Flow Rate (L/min) 5 Fraction of Inspired Oxygen (FIO2) Weight Weight: 59.5 kg Body Mass Index (BMI) 24.7 Physical Exam Narrative Physical exam: General: Well-nourished, well-developed. Head: Normocephalic, atraumatic, no tenderness Eyes: PERRLA, EOMI ENT, no trauma, moist mucous membranes, no rhinorrhea Neck: Nontender, full range of motion, no spinal tenderness, deformities, step-off CVS: Regular rate and rhythm. S1-S2 present. No murmur, gallop or rub. Respiratory : Tachypnea. Rales. chest wall nontender, no wheezing Abdomen: Soft, nontender, nondistended, normal bowel sounds, no masses : Deferred Back: Nontender, no CVA tenderness, no midline spinal tenderness, deformities, step-offs Extremities: Cold bilateral feet. Swelling of lower left leg and left foot. Nontender full range of motion, no trauma Skin: Normal color, no trauma, abrasions Neuro: Alert, oriented, cranial nerves II through XII grossly intact. Psychiatry: Normal mood. Normal affect. Not depressed. Not anxious. Results Lab / Micro Data Result Diagrams: 10/27/21 16:40 10/27/21 16:40 Labs: Laboratory Results - last 24 hr 10/27/21 16:40: WBC 6.0, RBC 4.95, Hgb 15.2 H, Hct 47.8 H, MCV 96.6, MCH 30.7, MCHC 31.8 L, RDW Std Deviation 55.8 H, RDW Coeff of Toby 15.6 H, Plt Count 234, MPV 10.6, Immature Gran % (Auto) 0.200, Neut % (Auto) 64.5, Lymph % (Auto) 27.3, [place] % (Auto) 7.2, Eos % (Auto) 0.3, Baso % (Auto) 0.5, Absolute Neuts (auto) 3.9, Absolute Lymphs (auto) 1.64, Nucleated RBC % 0 10/27/21 16:40: Sodium 133 L, Potassium 4.0, Chloride 96 L, Carbon Dioxide 23.0, Anion Gap 14, BUN 15, Creatinine 1.05 H, Estim Creat Clear Calc 37.08, Est GFR (MDRD) Af Amer 66, Est GFR (MDRD) Non-Af 55 L, BUN/Creatinine Ratio 14.3, Glucose 268 H, Calcium 9.2, Troponin I High Sens 122 H* 10/27/21 16:40: B-Natriuretic Peptide 4506.0 H Micro: Microbiology 10/27/21 18:11 Nasal Secretion SARS-CoV-2 Antigen (Rapid) - Final SARS-CoV-2 (COVID 19) ABG Data ABG results: ABG 10/27/21 17:19 Specimen Type ART Sample Site R Brach pH 7.15 L* Bicarbonate Actual 22.3 Total CO2 24 Base Excess -7 L O2 Saturation 100 H O2 % 90 ABG pCO2 64.0 H ABG pO2 317 H* Carroll Test Positive Respiration Rate 12 O2 Delivery Device BiPAP Vent Mode BiLevel Crit Call To/Read Back Yes Blood Gas Notified Whom mohan Clinical Comments 04/06 16 Rate 90% Radiology Impression Chest X-Ray 10/27/21 16:45 IMPRESSION: There are bilateral pleural effusions. There are bilateral infiltrates. Electronically Signed: Sundeep Gomez MD at 16:59 EST , Service support , Assessment & Plan Assessment/Plan (1) Acute exacerbation of CHF (congestive heart failure): QUALIFIERS: Heart failure type: systolic Qualified Code(s): I50.23 - Acute on chronic systolic (congestive) heart failure (2) Left leg swelling: (3) COVID-19 virus infection: PLAN: Acute hypoxemic and hypercapnic acute Exacerbation of heart failure Last echocardiogram on file was on 01/31/2021. Echocardiogram at that time showed estimated ejection fraction of 15%. Right ventricular systolic pressure was 31 mmHg. Mild papillary muscle dysfunction of the mitral valve. Moderate 2+ mitral valve insufficiency. IVCD uppercase leads identified within the right ventricle. Review of cardiology notes shows that patient has been evaluated at [facility] as it was felt that she was not a candidate of multivessel PCI. However patient was also considered not to be a candidate for bypass surgery candidate of LVAD. Reportedly seen she did undergo a PET scan in March 2021 at [facility] and days did not demonstrate any evidence of hibernation. She had evidence of a large scar in the territory of the LAD. Repeat echocardiogram. Place on monitored bed at the progressive care unit Weight on admission to the floor; and then daily Strict I&O's CXR independently interpreted and confirmed radiologist impression of bilateral pleural effusions and bilateral infiltrates. Telemetry strip showed paced rhythm. Emergency department labs reviewed initial ABG with pH of 7.15; PCO2 of 64; PO2 of 317. But this was when patient was on noninvasive pressure ventilation. Review of labs show sodium of 133 and chloride of 96, like secondary to CHF. BNP was 4506. Old records reviewed that this is above patient's baseline ordered in the past she has had BMP even higher than this. Received Lasix 20 mg IV push at the emergency department and continued. At home patient is on a Lasix 20 mg prn that she takes as needed. She resumed taking her Lasix in the week of presentation. Also she began taking Aldactone about a month ago. We will continue home carvedilol. Report that she was on FLAVIO receptor inhibitors but it was given her palpitations. Will not restart FLAVIO receptor inhibitors or FLAVIO receptor blockers at this time. Gentle potassium supplementation of 10 mg p.o. daily. Monitor electrolytes and renal function Trend blood pressure Titrate diuretics and heart failure/blood pressure medications with blood pressure. Elevate bilateral lower extremity. Of note left leg is swollen but right leg is not swollen. Fluid restriction of 1500 mls daily Cardiac diet COVID-19 virus infection Unclear whether COVID-19 virus infection is contributing to her current symptoms. However with patient requiring noninvasive pressure ventilation and later oxygen by nasal cannula patient was started on Decadron at the emergency department. We will continue Decadron at this time. Enhanced Covid precautions. Left lower extremity swelling Elevate bilateral lower extremity. Check Doppler of left lower extremity. Hyperglycemia Blood glucose on BMP was 268. Likely secondary to stress. Will check A1c. With starting patient on Decadron anticipate blood glucose requirements will increase. Accu-Chek QA CHS with correction scale insulin ordered. Elevated troponin Review of labs showed initial high sensitive troponin of 122. Likely from type II MS secondary to demand ischemia. Review of records shows a troponin that was way higher than present. Will trend troponins. Elevated creatinine. Baseline creatinine is around 0.75. Creatinine on presentation was 1.05. Does not meet criteria of EBONY. Will trend BMP. DVT prophylaxis: SCD ordered. Charges/Coding Visit Charges Inpatient E&M: 52291 Init Hosp L3
--- NOTE | 2021-10-27 19:47 | VDLE_ITS ---
Reason For Study: Swelling Procedure LEFT This is a venous duplex using B-mode, color GSV is normal. flow and spectral Doppler. CFV, FV and PopV are compressible. Exam performed portable in patient room. T/P Trunk is compressible. The exam was abbreviated due to the COVID 19 PTV is compressible. protocol. LT PerV is compressible. A preliminary report was called and/or faxed to OFFICE RENTAL CLERK. VL/Venous Duplex US, Unilateral Interpretation Summary There is no evidence of left lower extremity deep vein thrombosis. Left great s aphenous vein appears patent and compressible segmentally. Abbreviated Covid19 protocol Ordering Physician: Harsh Velasquez Performed By: Ita Spence RVT
--- NOTE | 2021-10-27 20:38 | PCS.PANDOC ---
PANDEMIC DOCUMENTATION INITIATED: Date: 06/06/2021 Time: 190
[2021-10-27 22:10] LABS: Troponin-I HS 958 pg/mL (3.0-54.0)
[2021-10-27] MEDS: Isosorbide DN 10 MG Tablet 5 MG PO (22:37)
[2021-10-27] MEDS: hydrALAZINE 10 MG Tablet PO (22:37)
[2021-10-27] MEDS: Enoxaparin 30 MG/0.3 ML Syringe SC (22:38)
[2021-10-27] MEDS: Carvedilol 3.125 MG TABLET PO (22:38)
[2021-10-27] MEDS: Sertraline 50 MG Tablet 25 MG PO (22:41)
[2021-10-27 22:51] LABS: Bedside Glucose 118 mg/dL (70-110)
[2021-10-27 23:46] LABS: Troponin-I HS 1347 pg/mL (3.0-54.0)
[2021-10-28] VITALS (17 sets, daily range): BP systolic 101–130; BP diastolic 67–89; PULSE 73–112; RESP 18; TEMP 36.6–37.1; O2SAT 93–98
[2021-10-28] MEDS: Enoxaparin 30 MG/0.3 ML Syringe SC (01:07)
[2021-10-28] MEDS: hydrALAZINE 10 MG Tablet PO ×2 (05:33→22:31)
[2021-10-28] MEDS: Isosorbide DN 10 MG Tablet 5 MG PO ×2 (05:34→22:32)
[2021-10-28] MEDS: Acetaminophen 325 MG Tablet 650 MG PO (05:35)
[2021-10-28 05:44] LABS: Absolute Lymphocyte Count 0.72 X10^3/uL (0.83-4.51); Absolute Neutrophil Count 5.6 X10^3/uL (2.0-7.7); Basophil# 0.01 X10^3/uL; Basophil% 0.2 % (0-1); Hematocrit 41.3 % (37-47); Hemoglobin 13.8 g/dL (12.0-15.0); Lymphocyte # 0.72 X10^3/ul (0.83-4.51); Mean Corp Hgb Conc 33.4 g/dL (32-36); Mean Corpuscular Hgb 30.8 pg (27.0-32.0); Mean Corpuscular Volume 92.2 fL (81-99); Mean Platelet Vol. 10.9 fl (6.2-12.0); Monocyte# 0.25 X10^3/uL; Monocyte% 3.8 % (0-10); NRBC Flagged by Analyzer 0 % (0-5); Neutrophil # 5.57 X10^3/uL (2.7-7.7); Neutrophil % 84.8 % (47-70); Platelet Count 204 K/mm3 (150-450); RBC Distribution Width CV 15.1 % (11.6-14.6); RBC Distribution Width SD 51.8 fl (35.1-43.9); Red Blood Count 4.48 M/mm3 (4.2-5.4); White Blood Count 6.6 K/mm3 (4.4-11.0)
[2021-10-28 06:10] LABS: Anion Gap 7 (5-15); BUN 13 mg/dL (7-18); BUN/Creat Ratio 18.6 RATIO (10-20); Calcium,Total 9.2 mg/dL (8.5-10.1); Chloride 101 mmol/L (98-107); EST Glomerular Filtration Rate 88 mL/min (>60); Est Glom Filt Rate - Afr Amer 106 mL/min (>60); Estimated Creatinine Clearance 38.94 ml/min; Glucose 131 mg/dL (74-106); Potassium 4.1 mmol/L (3.5-5.1); Sodium Level 137 mmol/L (136-145); Troponin-I HS 2873 pg/mL (3.0-54.0)
[2021-10-28 06:31] LABS: Hemoglobin A1c 5.6 % (3.8-5.6)
[2021-10-28 07:05] LABS: Bedside Glucose 124 mg/dL (70-110)
--- NOTE | 2021-10-28 07:25 | EKG12_ITS ---
Test Reason : Blood Pressure : / mmHG Vent. Rate : 079 BPM Atrial Rate : 079 BPM P-R Int : 138 ms QRS Dur : 184 ms QT Int : 488 ms P-R-T Axes : 057 258 101 degrees QTc Int : 559 ms Atrial-sensed ventricular-paced rhythm Abnormal ECG When compared with ECG of 27-OCT-2021 17:31, MANUAL COMPARISON REQUIRED, DATA IS UNCONFIRMED Confirmed by JUSTIN ALCARAZ, SHILPI ([id number]), assignment desk editor HILL JERNIGAN ([id number]) on 11/04/2021 8:02:44 AM Referred By: IRENE Confirmed By:ADOLFO ANDERSON MD
--- NOTE | 2021-10-28 09:24 | PCM.CONS.C ---
Assessment & Plan Assessment/Plan (1) Non-ST elevation (NSTEMI) myocardial infarction: PLAN: The patient has elevated cardiac enzymes which appear compatible with an acute non-ST segment elevation CO. Based upon the patient's cardiac history and clinical scenario this may be a type II event secondary to supply demand mismatch brought out by her acute on chronic systolic mediated CHF as well as her acute infectious disease issue with COVID-19. At the present time as she has undergone extensive cardiovascular evaluation as noted above it appears that she will continue conservative medical management. There are no immediate plans for any additional cardiac diagnostic studies/intervention at this time. (2) Acute exacerbation of CHF (congestive heart failure): QUALIFIERS: Heart failure type: systolic Qualified Code(s): I50.23 - Acute on chronic systolic (congestive) heart failure PLAN: The patient has developed acute on chronic systolic mediated CHF. Again, this may have been brought out by her COVID-19 process superimposed upon her underlying cardiovascular disease. She will continue medical management which at the time includes her IV diuretic therapy with potassium supplementation. Hopefully her volume status will improve back to her baseline and she will be able to continue back on her baseline medications which she appeared to be tolerating. (3) Atherosclerotic heart disease of [place] coronary artery without angina pectoris: QUALIFIERS: [place] vs. transplanted heart: [place] heart Qualified Code(s): I25.10 - Atherosclerotic heart disease of [place] coronary artery without angina pectoris PLAN: As noted above the patient has undergone extensive cardiovascular evaluation of her CAD process. She has been deemed not a candidate for any type of percutaneous or surgical based revascularization therapy. Thus she will continue conservative medical management. (4) Cardiomyopathy, ischemic: PLAN: The patient does have an underlying ischemic mediated cardiomyopathy. Again she has undergone extensive cardiovascular evaluation at [facility]. She was deemed not a candidate for LVAD therapy. Thus she is continuing conservative medical management. (5) ICD (implantable cardioverter-defibrillator) in place: PLAN: The patient does have a biventricular ICD in place. It has been followed. It appears to been functioning appropriately. (6) HTN (hypertension): PLAN: The patient's blood pressure will need to be monitored for any significant changes that would warrant adjustment of her medications. (7) COVID-19 virus infection: PLAN: The patient is being evaluated and treated for COVID-19 by the internal medicine team. Addt'l Comments Overall, from a cardiovascular standpoint, the patient will continue conservative medical management. It does not appear she requires additional noninvasive or invasive cardiovascular studies at this time. The same time she will continue evaluation care for COVID-19 which may be the exacerbating factor bringing out her acute cardiovascular changes. She is also going to continue with palliative care and at some point in time may need to be altered to hospice therapy. Thank you for allowing me to participate in the care of your patient. Please don't hesitate to call if any issues arise. This note was generated using a voice recognition system and there may be incorrect words, spelling or punctuation that were not noted when reviewing the office note prior to saving. HPI Consult Data Date of Consult: 10/28/21 HPI Narrative HPI Narrative: TIFFANY CARDONA, is a 71 year old white female who presents for a consultation based upon concerns of abnormal cardiac enzymes compatible with an acute non-ST segment elevation CO, acute on chronic systolic mediated CHF, superimposed upon underlying CAD, ischemic mediated cardiomyopathy with severe left ventricular systolic dysfunction, chronic systolic CHF, status post ICD placement, and hypertension status post local and [facility] cardiovascular extensive evaluation with subsequent determination of being delegated to continued conservative medical management with palliative care who is now also COVID-19 positive. The patient states that her family members were present recently for the holidays. She notes some of her family members have been COVID-19 positive in and around the leading up to the . She notes that recently she has felt more tired. She also began to feel more short of breath and dyspneic. She noted progressive lower extremity peripheral pitting edema. She subsequently summoned the EMS system. She was reported as appearing dyspneic and cyanotic with respect to her lower extremity digits. She was treated by the EMS squad with CPAP therapy and subsequently brought to the [facility] emergency department where then she was placed on BiPAP therapy and status post an initial medical management with IV diuretics eventually was weaned to O2 nasal cannula therapy. She notes this morning she does feel better overall with respect to her breathing and her lower extremity edema. She has denied any new acute chest discomforts considered classic for angina pectoris. There has been no evidence of near syncope or syncope. She states her ICD has not discharged. From a cardiovascular standpoint as noted above she has undergone local cardiovascular evaluation. She was evaluated at [facility]. Status post the [facility] evaluation (which included a cardiac PET scan which demonstrated large scar and no evidence of hibernation) she was deemed not to be a candidate for multivessel PCI, not a candidate for CABG, and not a candidate for LVAD therapy. She was delegated to continued conservative medical management. She states she has been enrolled in palliative care. She also states from a COVID-19 standpoint she did receive the J&J vaccination. She states she became ill after the vaccination. Thus she has not received any type of booster . Her evaluation thus far has demonstrated her troponin I levels to be positive with the most recent level being elevated at 2873. Her BNP level was elevated at 01/24/2006. Her ECG demonstrated an underlying biventricular electronic ventricular paced rhythm. Her chest x-ray demonstrated a biventricular ICD with the appearance of increased pulmonary vascularity and bilateral pleural effusions (please see official report) [facility] Medical History (Updated 10/28/21 @ 09:[address] Livan Phelps MD) Anxiety Atherosclerotic heart disease of [place] coronary artery without angina pectoris CAD (coronary artery disease) Cardiomyopathy Cardiomyopathy, ischemic CHF (congestive heart failure), NYHA class IV Congestive heart failure (CHF) Coronary artery disease Depression Elevated troponin Former smoker HTN (hypertension) Hypertension Hypertension ICD (implantable cardioverter-defibrillator) in place ICD (implantable cardioverter-defibrillator) in place ICD (implantable cardioverter-defibrillator) in place Non-ST elevation (NSTEMI) myocardial infarction Pacemaker Vertigo Home Medications hydralazine 10 mg PO TID 02/28/21 [History Last Taken 04/06/21 13:30] acetaminophen 325 mg tablet 325 mg PO ONCE PRN 04/21/21 [History Last Taken Unknown] isosorbide dinitrate 5 mg tablet 5 mg PO TID 04/21/21 [History Last Taken Unknown] spironolactone 12.5 mg PO PRN PRN 04/27/21 [History Last Taken Unknown] aspirin 81 mg PO DAILY 06/12/21 [History Last Taken Unknown] carvedilol 3.125 mg PO BID 06/12/21 [History Last Taken Unknown] sertraline 25 mg PO QHS #15 tab 06/14/21 [Rx Last Taken Unknown] furosemide 20 mg tablet 20 mg PO DAILY PRN tab 06/20/21 [History Last Taken Unknown] ondansetron 4 mg PO Q6H PRN #10 tab 08/16/21 [Rx Last Taken Unknown] guaifenesin [Mucinex] 600 mg PO PRN 10/27/21 [History Last Taken Unknown] Allergy/AdvReac Type Severity Reaction Status Date / Time Sulfa (Sulfonamide Allergy Rash Verified 10/27/21 16:11 Antibiotics) amoxicillin AdvReac Other Verified 10/27/21 16:11 [id number]-QGM-EuQ Reductase AdvReac palpitation Verified 10/27/21 16:11 Inhibitor s [Wdrnqki-Mbz-Kci Reductase Inhibitor] Family History Father Aneurysm Grandmother Congestive heart failure Brother Diabetes Grandfather Myocardial infarction, Onset Age: 60 Grandfather Myocardial infarction, Onset Age: 60 Other Heart disease Surgical History History of left heart catheterization (LHC) (~01/31/21) Social History Smoking Status: Former smoker alcohol intake: never substance use type: does not use caffeine: Yes Type: coffee ROS Constitutional Constitutional: Reports fatigue Eyes Eyes: Reports as per HPI ENT HEENT: Reports as per HPI Cardiovascular Cardiovascular: Reports dyspnea, edema and fatigue Respiratory/Chest Respiratory/Chest: Reports dyspnea Gastrointestinal Gastrointestinal: Reports as per HPI Genitourinary Genitourinary: Reports as per HPI Musculoskeletal Musculoskeletal: Reports as per HPI Integumentary Integumentary: Reports as per HPI Neurologic Neurologic: Reports as per HPI Psychiatric Psychiatric: Reports as per HPI Physical Exam Const alert, oriented x3 and no apparent distress Orientation / Consciousness: awake HEENT normocephalic, head/scalp atraumatic and hearing grossly normal bilaterally Eyes PERRL, EOMs intact bilaterally and conjunctivae normal Neck full ROM, supple and no JVD Chest Chest: left pectoral incision Resp Auscultation: rales bilateral base Cardio regular rate, regular rhythm, S1 normal heart sound and S2 normal heart sound GI normal to inspection, nondistended, normoactive bowel sounds Extremity General Extremity: edema bilateral lower extremity Details: trace Skin no rashes or lesions noted Neuro oriented x3, moves all extremities, no focal motor deficits and no sensory deficits noted Psych mental status grossly normal Risk Stratification Risk Stratification Applicable: Yes Age >/= 65: Yes >/= 3 CAD Risk Factors (HTN, HLD, DM, family hx of CAD, or current smoker): Yes Aspirin Use in the Past 7 Days: Yes Severe Angina (>/= episodes in 24 hours): No EKG ST Changes >/= 0.5mm: No Positive Cardiac Marker: Yes KATINA Risk Stratification Score: 4 KATINA % Risk: 20% Risk Procedure Criteria Type of Procedure Procedure Type: Elective Elective Risks - COVID COVID Risk Discussion: The surgeon/proceduralist and patient have discussed in detail the risk of exposure to and/or potential harm posed by the COVID-19 virus with having a surgery/procedure at this time versus the risk of delaying the surgery/procedure. It is not possible to know either the risk of delaying the surgery or procedure or chance of getting an infection with perfect accuracy, but a joint decision was made between the patient and the surgeon/proceduralist to proceed at this time with the scheduled surgery/procedure as indicated on the consent form. Objective Data Vital Signs: Vital Signs Temp Pulse Resp BP Pulse Ox 98.4 F 85 18 108/73 96 10/28/21 04:23 10/28/21 07:00 10/28/21 04:23 10/28/21 05:33 10/28/21 04:23 Oxygen Flow Rate (L/min) 2 Oxygen Delivery Method Nasal Cannula Weight: 120 lb 2.431 oz Body Mass Index (BMI) 23.0 Intake & Output: Intake and Output for Last 24 Hours 10/26/21 10/27/21 10/28/21 23:59 23:59 23:59 Intake Total 220 / 220 360 / 360 Output Total 1700 / 1700 600 / 600 Balance -1480 / -1480 -240 / -240 Lab / Micro Data Result Diagrams: 10/28/21 05:08 10/28/21 04:57 Labs: Laboratory Results - last 24 hr 10/27/21 16:40: WBC 6.0, RBC 4.95, Hgb 15.2 H, Hct 47.8 H, MCV 96.6, MCH 30.7, MCHC 31.8 L, RDW Std Deviation 55.8 H, RDW Coeff of Toby 15.6 H, Plt Count 234, MPV 10.6, Immature Gran % (Auto) 0.200, Neut % (Auto) 64.5, Lymph % (Auto) 27.3, [place] % (Auto) 7.2, Eos % (Auto) 0.3, Baso % (Auto) 0.5, Absolute Neuts (auto) 3.9, Absolute Lymphs (auto) 1.64, Nucleated RBC % 0 10/27/21 16:40: Sodium 133 L, Potassium 4.0, Chloride 96 L, Carbon Dioxide 23.0, Anion Gap 14, BUN 15, Creatinine 1.05 H, Estim Creat Clear Calc 37.08, Est GFR (MDRD) Af Amer 66, Est GFR (MDRD) Non-Af 55 L, BUN/Creatinine Ratio 14.3, Glucose 268 H, Calcium 9.2, Troponin I High Sens 122 H* 10/27/21 16:40: B-Natriuretic Peptide 4506.0 H 10/27/21 21:25: Troponin I High Sens 958 H* 10/27/21 22:32: POC Glucose 118 H 10/27/21 23:10: Troponin I High Sens 1347 H* 10/28/21 04:57: Sodium 137, Potassium 4.1, Chloride 101, Carbon Dioxide 29.0, Anion Gap 7, BUN 13, Creatinine 0.70, Estim Creat Clear Calc 38.94, Est GFR (MDRD) Af Amer 106, Est GFR (MDRD) Non-Af 88, BUN/Creatinine Ratio 18.6, Glucose 131 H, Calcium 9.2, Troponin I High Sens 2873 H* 10/28/21 05:08: WBC 6.6, RBC 4.48, Hgb 13.8, Hct 41.3, MCV 92.2, MCH 30.8, MCHC 33.4 D, RDW Std Deviation 51.8 H, RDW Coeff of Toby 15.1 H, Plt Count 204, MPV 10.9, Immature Gran % (Auto) 0.200, Neut % (Auto) 84.8 H, Lymph % (Auto) 11.0 L, [place] % (Auto) 3.8, Eos % (Auto) 0.0, Baso % (Auto) 0.2, Absolute Neuts (auto) 5.6, Absolute Lymphs (auto) 0.72 L, Nucleated RBC % 0 10/28/21 05:08: Hemoglobin A1c 5.6 10/28/21 06:55: POC Glucose 124 H Micro: Microbiology 10/27/21 18:11 Nasal Secretion SARS-CoV-2 Antigen (Rapid) - Final SARS-CoV-2 (COVID 19) ABG Data ABG results: ABG 10/27/21 17:19 Specimen Type ART Sample Site R Brach pH 7.15 L* Bicarbonate Actual 22.3 Total CO2 24 Base Excess -7 L O2 Saturation 100 H O2 % 90 ABG pCO2 64.0 H ABG pO2 317 H* Carroll Test Positive Respiration Rate 12 O2 Delivery Device BiPAP Vent Mode BiLevel Crit Call To/Read Back Yes Blood Gas Notified Whom mohan Clinical Comments 04/06 16 Rate 90% Cardiology Labs/Tests 10/27/21 16:40: WBC 6.0, RBC 4.95, Hgb 15.2 H, Hct 47.8 H, MCV 96.6, MCH 30.7, MCHC 31.8 L, Plt Count 234, MPV 10.6, Immature Gran % (Auto) 0.200, Neut % (Auto) 64.5, Lymph % (Auto) 27.3, [place] % (Auto) 7.2, Eos % (Auto) 0.3, Baso % (Auto) 0.5, Absolute Neuts (auto) 3.9, Nucleated RBC % 0 10/27/21 16:40: Sodium 133 L, Potassium 4.0, Chloride 96 L, Carbon Dioxide 23.0, Anion Gap 14, BUN 15, Creatinine 1.05 H, Est GFR (MDRD) Af Amer 66, Est GFR (MDRD) Non-Af 55 L, BUN/Creatinine Ratio 14.3, Glucose 268 H, Calcium 9.2 10/27/21 16:40: B-Natriuretic Peptide 4506.0 H 10/27/21 17:19: pH 7.15 L*, Bicarbonate Actual 22.3, Base Excess -7 L, O2 Saturation 100 H, ABG pCO2 64.0 H, ABG pO2 317 H*, Carroll Test Positive 10/28/21 04:57: Sodium 137, Potassium 4.1, Chloride 101, Carbon Dioxide 29.0, Anion Gap 7, BUN 13, Creatinine 0.70, Est GFR (MDRD) Af Amer 106, Est GFR (MDRD) Non-Af 88, BUN/Creatinine Ratio 18.6, Glucose 131 H, Calcium 9.2 10/28/21 05:08: WBC 6.6, RBC 4.48, Hgb 13.8, Hct 41.3, MCV 92.2, MCH 30.8, MCHC 33.4 D, Plt Count 204, MPV 10.9, Immature Gran % (Auto) 0.200, Neut % (Auto) 84.8 H, Lymph % (Auto) 11.0 L, [place] % (Auto) 3.8, Eos % (Auto) 0.0, Baso % (Auto) 0.2, Absolute Neuts (auto) 5.6, Nucleated RBC % 0 10/28/21 05:08: Hemoglobin A1c 5.6 Rhythm: Electronic ventricular paced rhythm EKG: Biventricular electronic ventricular pacemaker Transthoracic echocardiogram: 01-30-21 Interpretation Summary Severely dilated left ventricle. Severe segmental systolic dysfunction (see wall motion). The estimated ejection fraction is 15 %. The left atrium is mildly enlarged. Moderate diffuse mitral valve thickening. Mild papillary muscle dysfunction of the mitral valve. Moderate (2+) mitral valve insufficiency. Mild tricuspid valve insufficiency. Moderate focal aortic valve calcification. Small pericardial effusion. There are no echocardiographic indications of cardiac tamponade. Right ventricular systolic pressure estimated to be 31 mmHg. Diastolic function is indeterminate. ICD or pacer leads identified within the right atrium ICD or pacer leads identified within the right ventricle. Cardiac catheterization: 01-31-21 CONCLUSIONS Elevated Left Ventricular End Diastolic Pressure (mild) Segmented LV systolic dysfunction- Severe LVEF: by LV gram 15 % [place] Multivessel CAD Left to Right Collateral Flow RECOMMENDATIONS Risk factor modification Medical therapy Surgery consult for coronary revascularization DESCRIPTION OF PROCEDURE The patient arrived to the procedure lab. The risks and benefits of the procedure as well as a full description of our services here and current unavailability of surgical backup were fully explained to the patient and/or their significant other prior to the catheterization. The Timeout was completed, verifying the correct patient and procedure. The patient's procedural site was prepped and draped in the usual fashion. Local anesthetic was given subcutaneously to right radial region with Lidocaine 2%. Using a modified Seldinger technique, arterial access was obtained via the right radial artery, a 6Fr sheath was inserted. Right Coronary Artery selective angiography was then performed in multiple views using a 5 Fr. 4.0 [place] catheter. Left Coronary Artery selective angiography was performed in multiple views using a 5 Fr. 4.0 [place] catheter. Left Ventriculography was performed in VICTORIA projection using a 5 Fr. Pigtail catheter. LV to AO pullback pressures were then recorded.The arterial sheath was pulled and a TR Band was applied for hemostasis 12cc air CORONARY ANGIOGRAPHY DOMINANCE: Right Dominant LEFT HEART ASSESSMENT Left Ventricular Ejection Fraction: by LV Gram 15 % Anterior Hypokinesis - Severe. Inferior Basal Hypokinesis - Severe. Inferior Mid Akinesis. Apical Akinesis Elevated Left Ventricular End Diastolic Pressure LVEDP: 14 mmHg LEFT MAIN: Mild calcification, distal: 50 % Stenosis LEFT ANTERIOR DESCENDING ARTERY: PROX LAD: Moderate calcification, 99 % Stenosis MID LAD: Moderate calcification DISTAL LAD: 99 % Stenosis CIRCUMFLEX ARTERY: Mild luminal irregularities, diffuse: 25 % Stenosis OM 1: Proximal - 25 % Stenosis RAMUS: Mild luminal irregularities, 75 % Stenosis RIGHT CORONARY ARTERY: Mild calcification Mild luminal irregularities MID RCA: irregular: 85 % Stenosis DISTAL RCA: eccentric: 25 % Stenosis, 99 % Stenosis COLLATERAL FLOW: Collateral flow from Left to Right AORTIC ROOT: Angiographically normal ICD: [employer]: N140: [employer] 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 CXR: Chest CT Scan: Radiography Diagnostic Testing: Radiology Impression Chest X-Ray 10/27/21 16:45 IMPRESSION: There are bilateral pleural effusions. There are bilateral infiltrates. Electronically Signed: Sundeep Gomez MD at 16:59 EST , Service support ,
[2021-10-28] MEDS: Aspirin E.C. 81 MG Tablet PO (09:42)
[2021-10-28] MEDS: Carvedilol 3.125 MG TABLET PO ×2 (09:42→22:33)
[2021-10-28] MEDS: Potassium Chloride Oral Tablet 10 MEQ PO (09:43)
[2021-10-28] MEDS: dexAMETHasone 4 MG Tablet 6 MG PO (09:43)
[2021-10-28] MEDS: Spironolactone 25 MG Tablet 12.5 MG PO (09:45)
[2021-10-28] MEDS: Furosemide 20 MG/2 ML VIAL IV ×2 (09:46→16:55)
[2021-10-28] MEDS: 0.9% Saline Lock 10 ML Syringe IV ×2 (09:46→16:55)
[2021-10-28] MEDS: Enoxaparin 60 MG/0.6 ML Syringe 55 MG SC ×2 (09:50→22:34)
--- NOTE | 2021-10-28 10:15 | CASEMGMT ---
RN GRACIELA ENERGY MANAGEMENT SPECIALIST CM placed call to pt's room for initial transition planning/care coordination assessment. FRANK OWENS introduced self and role at [facility]. Pt voices understanding and consents to assessment at this time. Pt is A/O at this time and answers all questions appropriately. Care providers, pharmacy, and demographics verified/updated at this time. COVID + Testing done @ [facility] 10/27/21. Symptoms started 2 wks prior PCP: No PCP. Pt was provided w/list of local PCP's last hospitilization in 05/2021. Pt states she is still not set up w/PCP and does wish to get another list of local PCP's. She states she does not plan to get a PCP Until I can go into the office without a mask on so I don't have the wheezing and panic attack from the mask Specialists: Dr Phelps--cardiology, Dr White (she thinks this is the spelling) @ [facility] for severe heart failure. Pt is active w/[facility]. Preferred Pharmacy: States usually gets her meds from [facility] or from [facility] on the weekends, when [place] is not open. States to set up /[facility] for now and will let someone know if she wants to change it later. Insurance: [facility] A/B Prescription Benefit: none Living Will/HPOA: Has both LW and HPOA, who is her Son, Ralf, and brother, Osmel. She states she thinks it is either/or. She is aware there is not a copy on file @ [facility]. She said she has a copy of it @ her home and does not think Ralf or Osmel have a copy of it. Recommended a copy be provided to anyone listed as POA and asked if a copy could be brought to [facility] to be placed on file, when able to. LNOK: Son, Ralf Andres (only child). Brothers Osmel and Juanito Elder Living Arrangements: Lives alone in a 2-story home w/3 steps to enter. Independent w/ADL's and IADL's and denies difficulty w/stairs. Pt manages her own medication and appts. She states thinks she has enough food at home to get her through another week while in isolation and may have someone who can drop her off a few things if needed. FRANK OWENS informed pt to ask for CM if she has concerns w/having access to groceries/supplies once she returns home. Transportation: Pt states drives self and states no transportation concerns at this time. Friends can assist if needed. DME: Pt ambulates w/out assistive device. She has a walker that she uses as parallel bars to exercise her shoulders. She does not have Home O2. Discussed possible need of Home O2 @ discharge and reviewed process of home O2 set-up. Pt states would like to review a list of local DME companies to review before deciding who she would like. Pt HHC/SNF: No hx of SNF or HHC. Denies need for HHC @ d/c. Pt wishes to return home and states has no concerns with going home at time of discharge. CM to follow for home oxygen needs and any further discharge planning/needs. Pt voices no further concerns/needs at this time. Advised pt to ask for CM if any further questions/concerns/needs arise. Voices understanding. PLAN: Home. Follow for possible need of Home O2 @ discharge Pt does not have Rx coverage--follow for affordability of any new medications @ dc. Hiram GRAYSONN RN CM
[2021-10-28 11:11] LABS: Anion Gap 7 (5-15); BUN 14 mg/dL (7-18); BUN/Creat Ratio 21.7 RATIO (10-20); Calcium,Total 8.7 mg/dL (8.5-10.1); Chloride 100 mmol/L (98-107); Creatinine, Serum 0.65 mg/dL (0.55-1.02); EST Glomerular Filtration Rate 96 mL/min (>60); Est Glom Filt Rate - Afr Amer 116 mL/min (>60); Estimated Creatinine Clearance 38.94 ml/min; Glucose 164 mg/dL (74-106); Potassium 3.4 mmol/L (3.5-5.1); Sodium Level 137 mmol/L (136-145); Troponin-I HS 1921 pg/mL (3.0-54.0)
[2021-10-28 11:35] LABS: Bedside Glucose 154 mg/dL (70-110)
[2021-10-28] MEDS: Insulin Lispro 100 UNIT/ML INSULN.PEN SC ×3 (12:03→22:33)
--- NOTE | 2021-10-28 15:45 | CASEMGMT ---
Pt states no preference for home oxygen company. Green sheet on chart for O2. Palma MARIE CM
--- NOTE | 2021-10-28 16:52 | PCM.PN.HOSP ---
Subjective Subjective Doing well, no issues overnight Objective Data Objective Data Vital Signs: Vital Signs Temp Pulse Resp BP Pulse Ox 98.8 F 97 18 116/86 H 94 10/28/21 16:50 10/28/21 16:50 10/28/21 16:50 10/28/21 16:50 10/28/21 16:50 Oxygen Flow Rate (L/min) [ 0 AMBULATING on Room Air] Oxygen Flow Rate (L/min) [At 0 REST on Room Air] Oxygen Flow Rate (L/min) 1.5 Oxygen Delivery Method Room Air Weight: 120 lb 2.431 oz Body Mass Index (BMI) 23.0 Intake & Output: Intake and Output for Last 24 Hours 10/27/21 10/28/21 10/29/21 03:59 03:59 03:59 Intake Total 220 / 220 600 / 600 Output Total 1700 / 1700 2500 / 2500 Balance -1480 / -1480 -1900 / -1900 Lab / Micro Data Result Diagrams: 10/28/21 05:08 10/28/21 10:21 Labs: Laboratory Results - last 24 hr 10/27/21 16:40: WBC 6.0, RBC 4.95, Hgb 15.2 H, Hct 47.8 H, MCV 96.6, MCH 30.7, MCHC 31.8 L, RDW Std Deviation 55.8 H, RDW Coeff of Toby 15.6 H, Plt Count 234, MPV 10.6, Immature Gran % (Auto) 0.200, Neut % (Auto) 64.5, Lymph % (Auto) 27.3, [place] % (Auto) 7.2, Eos % (Auto) 0.3, Baso % (Auto) 0.5, Absolute Neuts (auto) 3.9, Absolute Lymphs (auto) 1.64, Nucleated RBC % 0 10/27/21 16:40: Sodium 133 L, Potassium 4.0, Chloride 96 L, Carbon Dioxide 23.0, Anion Gap 14, BUN 15, Creatinine 1.05 H, Estim Creat Clear Calc 37.08, Est GFR (MDRD) Af Amer 66, Est GFR (MDRD) Non-Af 55 L, BUN/Creatinine Ratio 14.3, Glucose 268 H, Calcium 9.2, Troponin I High Sens 122 H* 10/27/21 16:40: B-Natriuretic Peptide 4506.0 H 10/27/21 21:25: Troponin I High Sens 958 H* 10/27/21 22:32: POC Glucose 118 H 10/27/21 23:10: Troponin I High Sens 1347 H* 10/28/21 04:57: Sodium 137, Potassium 4.1, Chloride 101, Carbon Dioxide 29.0, Anion Gap 7, BUN 13, Creatinine 0.70, Estim Creat Clear Calc 38.94, Est GFR (MDRD) Af Amer 106, Est GFR (MDRD) Non-Af 88, BUN/Creatinine Ratio 18.6, Glucose 131 H, Calcium 9.2, Troponin I High Sens 2873 H* 10/28/21 05:08: WBC 6.6, RBC 4.48, Hgb 13.8, Hct 41.3, MCV 92.2, MCH 30.8, MCHC 33.4 D, RDW Std Deviation 51.8 H, RDW Coeff of Toby 15.1 H, Plt Count 204, MPV 10.9, Immature Gran % (Auto) 0.200, Neut % (Auto) 84.8 H, Lymph % (Auto) 11.0 L, [place] % (Auto) 3.8, Eos % (Auto) 0.0, Baso % (Auto) 0.2, Absolute Neuts (auto) 5.6, Absolute Lymphs (auto) 0.72 L, Nucleated RBC % 0 10/28/21 05:08: Hemoglobin A1c 5.6 10/28/21 06:55: POC Glucose 124 H 10/28/21 10:21: Sodium 137, Potassium 3.4 L, Chloride 100, Carbon Dioxide 30.0, Anion Gap 7, BUN 14, Creatinine 0.65, Estim Creat Clear Calc 38.94, Est GFR (MDRD) Af Amer 116, Est GFR (MDRD) Non-Af 96, BUN/Creatinine Ratio 21.7 H, Glucose 164 H, Calcium 8.7, Troponin I High Sens 1921 H* 10/28/21 11:04: POC Glucose 154 H Micro: Microbiology 10/27/21 18:11 Nasal Secretion SARS-CoV-2 Antigen (Rapid) - Final SARS-CoV-2 (COVID 19) ABG Data ABG results: ABG 10/27/21 17:19 Specimen Type ART Sample Site R Brach pH 7.15 L* Bicarbonate Actual 22.3 Total CO2 24 Base Excess -7 L O2 Saturation 100 H O2 % 90 ABG pCO2 64.0 H ABG pO2 317 H* Carroll Test Positive Respiration Rate 12 O2 Delivery Device BiPAP Vent Mode BiLevel Crit Call To/Read Back Yes Blood Gas Notified Whom mohan Clinical Comments 04/06 16 Rate 90% Radiography Diagnostic Testing: Radiology Impression Chest X-Ray 10/27/21 16:45 IMPRESSION: There are bilateral pleural effusions. There are bilateral infiltrates. Electronically Signed: Sundeep Gomez MD at 16:59 EST , Service support , Physical Exam Const alert, oriented x3 and no apparent distress General Appearance: cooperative HEENT normocephalic and moist oral mucous membranes Eyes PERRL, EOMs intact bilaterally and conjunctivae normal Neck supple and no JVD Resp normal respiratory effort, no retractions, no use of accessory muscles and clear to auscultation bilaterally Auscultation: Negative for crackles, rales, rhonchi or wheezes Cardio regular rate, regular rhythm, S1 normal heart sound, S2 normal heart sound and no murmurs GI soft to palpation, non-tender and non-distended; Negative for hepatosplenomegaly Extremity no clubbing, cyanosis or edema Skin no rashes or lesions noted Neuro no focal motor deficits and no sensory deficits noted Psych affect normal Appearance: appropriate Assessment & Plan Assessment/Plan (1) Acute exacerbation of CHF (congestive heart failure): QUALIFIERS: Heart failure type: systolic Qualified Code(s): I50.23 - Acute on chronic systolic (congestive) heart failure (2) Left leg swelling: (3) COVID-19 virus infection: PLAN: 1. Acute hypoxic and hypercapnic respiratory failure secondary to acute on chronic systolic CHF/HTN/non-STEMI ? Appreciate cardiology input ? Continue with Lasix ? She did have an echo in January with EF of 15% with an RVSP of 31 mmHg. ? She will likely need to be discharged on her Lasix every day for the next week and then can return to her as needed dosing ?Continue with fluid restriction 1500 cc ? She does have a chronically elevated troponin likely secondary to her severe cardiomyopathy. ? Continue with her blood pressure medications 2. COVID-19 virus infection ? She is no longer on any oxygen secondary to appropriate diuresis, ? Can continue with Decadron 3. Anxiety/depression ? Stable ? Continue with soft DVT: SCDs Charges/Coding Visit Charges Inpatient E&M: 51014 Subs Hosp L2
[2021-10-28 17:05] LABS: Bedside Glucose 152 mg/dL (70-110)
[2021-10-28] MEDS: Sertraline 50 MG Tablet 25 MG PO (22:31)
[2021-10-28 22:46] LABS: Bedside Glucose 176 mg/dL (70-110)
[2021-10-29] VITALS (9 sets, daily range): BP systolic 98–120; BP diastolic 70–83; PULSE 77–91; RESP 18; TEMP 36.6–36.9; O2SAT 96–97
[2021-10-29] MEDS: hydrALAZINE 10 MG Tablet PO (06:59)
[2021-10-29] MEDS: Isosorbide DN 10 MG Tablet 5 MG PO (06:59)
[2021-10-29 07:01] LABS: Bedside Glucose 142 mg/dL (70-110)
[2021-10-29 08:50] LABS: Anion Gap 6 (5-15); BUN 21 mg/dL (7-18); BUN/Creat Ratio 28.1 RATIO (10-20); Calcium,Total 8.8 mg/dL (8.5-10.1); Chloride 101 mmol/L (98-107); Creatinine, Serum 0.75 mg/dL (0.55-1.02); EST Glomerular Filtration Rate 81 mL/min (>60); Est Glom Filt Rate - Afr Amer 98 mL/min (>60); Estimated Creatinine Clearance 38.94 ml/min; Glucose 103 mg/dL (74-106); Potassium 3.3 mmol/L (3.5-5.1); Sodium Level 139 mmol/L (136-145)
[2021-10-29] MEDS: dexAMETHasone 4 MG Tablet 6 MG PO (10:27)
[2021-10-29] MEDS: Aspirin E.C. 81 MG Tablet PO (10:27)
[2021-10-29] MEDS: Potassium Chloride Oral Tablet 10 MEQ PO (10:28)
[2021-10-29] MEDS: Spironolactone 25 MG Tablet 12.5 MG PO (10:28)
[2021-10-29] MEDS: Enoxaparin 60 MG/0.6 ML Syringe 55 MG SC (10:29)
--- NOTE | 2021-10-29 10:46 | PCM.DC ---
Discharge Instructions Diet Discharge Diet: Low fat / Low cholesterol, 6 Cup Fluid Restriction and 2000 mg Sodium Diet Activity Discharge Activity: Return to Normal Activity Dressing / Incision Call your doctor if you observe: Fever of 101 or Higher, Shortness of breath, Dizziness, Fainting spells, Swelling in the ankles, Chest pain and Increased palpitations (irregular heartbeat) Follow Up Care Test Results: Test results from this visit will be discussed in further detail at your follow-up appointment, if applicable. Discharge Plan Admission Admit Date/Time: 10/27/21 19:14 Attending Provider: Rufino Garza Primary Care Provider: Care Physician,No Primary Consulting Providers: Kelly Roberts Discharge Orders/Prescriptions Prescriptions: Continued acetaminophen 325 mg tablet 325 mg PO ONCE PRN (Reason: Pain) RF: 0 isosorbide dinitrate 5 mg tablet 5 mg PO TID RF: 0 hydralazine 10 mg Tablet 10 mg PO TID RF: 0 spironolactone 25 mg tablet 12.5 mg PO PRN PRN (Reason: SWELLING) RF: 0 aspirin 81 MG tablet,delayed release (DR/EC) 81 mg PO DAILY RF: 0 Hold Instructions: Bruising carvedilol 3.125 mg tablet 3.125 mg PO BID RF: 0 sertraline 50 mg Tablet 25 mg PO QHS Qty: 15 RF: 1 ondansetron 4 mg tablet,disintegrating 4 mg PO Q6H PRN (Reason: nausea and vomiting) Qty: 10 RF: 0 guaifenesin [Mucinex] 600 mg Tablet Extended Release 12hr 600 mg PO PRN (Reason: Sinus Symptoms) RF: 0 furosemide [Lasix] 20 mg tablet 20 mg PO DAILY PRN (Reason: Weight Gain) Qty: 0 RF: 0 Referrals / Follow Up: Livan Phelps MD [STAFF PHYSICIAN] - Within 1 Month Care Physician,No Primary [Primary Care Provider] - Within 1 Week Disposition Disposition (needs filled in before D/C Order can be placed): Home, Self Care
--- NOTE | 2021-10-29 10:58 | DS.PCM_ITS ---
Providers Date of Admission: 10/27/21 Primary Care Physician: Kalpana Primary Care Phys Consultations 10/27/21 23:50 Consult: Cardiology Routine Consulting Provider: Kelly Roberts Reason for Consult: Elevated troponin EMERGENT Consult: No MD Notified: Yes Date Notified: 10/28/21 Time Notified: 06:45 Method of Notification: Text Reason For Visit: ACUTE HEART FAILURE EXACERBATION Diagnosis Discharge Diagnosis (1) Acute exacerbation of CHF (congestive heart failure): Status: Acute Code(s): I50.9 - Heart failure, unspecified Qualifiers: Heart failure type: systolic Qualified Code(s): I50.23 - Acute on chron ic systolic (congestive) heart failure (2) Left leg swelling: Status: Acute Code(s): M79.89 - Other specified soft tissue disorders (3) COVID-19 virus infection: Status: Acute Code(s): U07.1 - COVID-19 Medications at Discharge Home Medications hydralazine 10 mg PO TID 02/28/21 acetaminophen 325 mg tablet 325 mg PO ONCE PRN 04/21/21 isosorbide dinitrate 5 mg tablet 5 mg PO TID 04/21/21 spironolactone 12.5 mg PO PRN PRN 04/27/21 aspirin 81 mg PO DAILY 06/12/21 carvedilol 3.125 mg PO BID 06/12/21 sertraline 25 mg PO QHS #15 tab 06/14/21 ondansetron 4 mg PO Q6H PRN #10 tab 08/16/21 guaifenesin [Mucinex] 600 mg PO PRN 10/27/21 furosemide [Lasix] 20 mg PO DAILY PRN #0 tab 10/29/21 Hospital Course Operations None Procedures None Summary of Care Provided Minutes Spent on Discharge: 41 Hospital Course: Per HPI: TIFFANY CARDONA, is a 71 F with a significant history of congestive heart failure with severely reduced ejection fraction who presents to the emergency department with shortness of breath that started a day before presentation and worsened on the day of presentation. Reportedly when paramedics found patient, patient was severely short of breath, tripoding, and with cyanotic toes. Patient was placed on the CPAP by paramedics. At the emergency department patient was placed on BiPAP and eventually weaned onto nasal cannula oxygen. Patient thinks her symptoms developed from a panic attack. She report wheezes. She denies chest pain. She denies palpitations. She reports swelling in her left leg. She has poor appetite. She has fatigue. She has had some weight gain. She is unable to tell the exact weight gain and the period. Patient reported that at about 2 weeks ago she had a Covid-like symptoms. Reportedly she was in close contact with her family who had Covid. Covid vaccination status: Received J&J Covid vaccination after which she got sick so she could not get a booster. Hospital Course: 1. Acute hypoxic and hypercapnic respiratory failure secondary to acute on chronic systolic CHF/HTN/non-STEMI ? Appreciate cardiology input ? Continue with Lasix ? She did have an echo in January with EF of 15% with an RVSP of 31 mmHg. ? She will likely need to be discharged on her Lasix every day for the next week and then can return to her as needed dosing ?Continue with fluid restriction 1500 cc ? She does have a chronically elevated troponin likely secondary to her severe cardiomyopathy. ? Continue with her blood pressure medications 10/29/2021: Feels much better today, not requiring any oxygen. She is diuresed well, her left leg is no longer swollen therefore I do think that this was secondary to edema from CHF, she states that that is the leg that usually swells most.. Since she is back to normal she would like to go home, I discussed with her the risk benefits of discharge and she expressed understanding. We will plan for daily Lasix for the next couple of days and then she can go back to her previous schedule of as needed dosing. She is to follow-up with dehydrating press operator in the next several weeks as well as her PCP in the next week or so. 2. COVID-19 virus infection ? She is no longer on any oxygen secondary to appropriate diuresis, ? No longer hypoxic, the oxygen requirement is likely secondary to heart failure therefore she is now out of quarantine will not need Decadron on discharge 3. Anxiety/depression ? Stable ? Continue with soft Physical Exam Narrative Const alert, oriented x3 and no apparent distress General Appearance: cooperative HEENT normocephalic and moist oral mucous membranes Eyes PERRL, EOMs intact bilaterally and conjunctivae normal Neck supple and no JVD Resp normal respiratory effort, no retractions, no use of accessory muscles and clear to auscultation bilaterally Auscultation: Negative for crackles, rales, rhonchi or wheezes Cardio regular rate, regular rhythm, S1 normal heart sound, S2 normal heart sound and no murmurs GI soft to palpation, non-tender and non-distended; Negative for hepatosplenomegaly Extremity no clubbing, cyanosis or edema Skin no rashes or lesions noted Neuro no focal motor deficits and no sensory deficits noted Psych affect normal Appearance: appropriate Weight / BMI Weight Weight: 113 lb 8.609 oz Body Mass Index (BMI) 23.0 ABG / Lab / Microbiology Data Result Diagrams: 10/28/21 05:08 10/29/21 07:40 Laboratory: Laboratory Results - last 24 hr 10/28/21 10:21: Sodium 137, Potassium 3.4 L, Chloride 100, Carbon Dioxide 30.0, Anion Gap 7, BUN 14, Creatinine 0.65, Estim Creat Clear Calc 38.94, Est GFR (MDRD) Af Amer 116, Est GFR (MDRD) Non-Af 96, BUN/Creatinine Ratio 21.7 H, Glucose 164 H, Calcium 8.7, Troponin I High Sens 1921 H* 10/28/21 11:04: POC Glucose 154 H 10/28/21 16:48: POC Glucose 152 H 10/28/21 22:27: POC Glucose 176 H 10/29/21 06:51: POC Glucose 142 H 10/29/21 07:40: Sodium 139, Potassium 3.3 L, Chloride 101, Carbon Dioxide 32.0, Anion Gap 6, BUN 21 H, Creatinine 0.75, Estim Creat Clear Calc 38.94, Est GFR (MDRD) Af Amer 98, Est GFR (MDRD) Non-Af 81, BUN/Creatinine Ratio 28.1 H, Glucose 103, Calcium 8.8 Microbiology: Microbiology 10/27/21 18:11 Nasal Secretion SARS-CoV-2 Antigen (Rapid) - Final SARS-CoV-2 (COVID 19) Radiography Diagnostic Testing: Radiology Impression Venous Doppler Study 10/27/21 19:47 Interpretation Summary There is no evidence of left lower extremity deep vein thrombosis. Left great saphenous vein appears patent and compressible segmentally. Abbreviated Covid19 protocol Ordering Physician: Harsh Velasquez Performed By: Ita Spence RVT D/C Instructions Discharge Diet: Low fat / Low cholesterol, 6 Cup Fluid Restriction and 2000 mg Sodium Diet Call your doctor if you observe: Fever of 101 or Higher, Shortness of breath, Dizziness, Fainting spells, Swelling in the ankles, Chest pain and Increased palpitations (irregular heartbeat) Meaningful Use Info Meaningful Use Diagnoses (Choose all that apply): None applicable Discharge Plan Admission Admit Date/Time: 10/27/21 19:14 Attending Provider: Rufino Garza Primary Care Provider: Care Physician,No Primary Consulting Providers: Kelly Roberts Discharge Orders/Prescriptions Prescriptions: Continued acetaminophen 325 mg tablet 325 mg PO ONCE PRN (Reason: Pain) RF: 0 isosorbide dinitrate 5 mg tablet 5 mg PO TID RF: 0 hydralazine 10 mg Tablet 10 mg PO TID RF: 0 spironolactone 25 mg tablet 12.5 mg PO PRN PRN (Reason: SWELLING) RF: 0 aspirin 81 MG tablet,delayed release (DR/EC) 81 mg PO DAILY RF: 0 Hold Instructions: Bruising carvedilol 3.125 mg tablet 3.125 mg PO BID RF: 0 sertraline 50 mg Tablet 25 mg PO QHS Qty: 15 RF: 1 ondansetron 4 mg tablet,disintegrating 4 mg PO Q6H PRN (Reason: nausea and vomiting) Qty: 10 RF: 0 guaifenesin [Mucinex] 600 mg Tablet Extended Release 12hr 600 mg PO PRN (Reason: Sinus Symptoms) RF: 0 furosemide [Lasix] 20 mg tablet 20 mg PO DAILY PRN (Reason: Weight Gain) Qty: 0 RF: 0 Referrals / Follow Up: Livan Phelps MD [STAFF PHYSICIAN] - Within 1 Month Care Physician,No Primary [Primary Care Provider] - Within 1 Week Disposition Disposition (needs filled in before D/C Order can be placed): Home, Self Care Charges/Coding Visit Charges Inpatient E&M: 10913 Disch Hosp
== END 2021-10-29 13:52 | disposition home or self-care (01) | DRG 280 ==
LOC: ED 19:24 → PCU 19:50
PROVIDERS: Internal Medicine Cardiovascular Disease; Admitting Provider Hospitalist; Emergency Provider Emergency Medicine; Visit Provider Family Medicine
DX: I11.0 Hypertensive heart disease with heart failure (principal); I21.A1 Myocardial infarction type 2; U07.1 COVID-19; J12.82 Pneumonia due to coronavirus disease 2019; J96.01 Acute respiratory failure with hypoxia; J96.02 Acute respiratory failure with hypercapnia; I50.23 Acute on chronic systolic (congestive) heart failure; E87.2 Acidosis; I25.5 Ischemic cardiomyopathy; I34.0 Nonrheumatic mitral (valve) insufficiency; F41.9 Anxiety disorder, unspecified; I25.10 Atherosclerotic heart disease of native coronary artery without angina pectoris; M79.89 Other specified soft tissue disorders; Z51.5 Encounter for palliative care; F32.A Depression, unspecified; Z87.891 Personal history of nicotine dependence; Z20.822 Contact with and (suspected) exposure to COVID-19; Z95.810 Presence of automatic (implantable) cardiac defibrillator
CPT/HCPCS: 36415; 36600; 51702; 71045; 80048; 82803; 82962; 83036; 83880; 84484; 85025; 87426; 93005; 93971; 94002; 97802; 99285; 99406; A4216; J1940

== ENCOUNTER 2022-01-12 11:44 | Inpatient (IN) | payer MEDICARE, SELFPAY ==
[2022-01-12] VITALS (13 sets, daily range): BP systolic 116–138; BP diastolic 75–106; PULSE 83–125; RESP 12–28; TEMP 36.6–36.9; O2SAT 92–100; BMI 23.6; BMI 23.2
--- NOTE | 2022-01-12 12:48 | EKG12_ITS ---
Test Reason : EDEMA Blood Pressure : / mmHG Vent. Rate : 087 BPM Atrial Rate : 087 BPM P-R Int : 140 ms QRS Dur : 188 ms QT Int : 440 ms P-R-T Axes : 065 267 112 degrees QTc Int : 529 ms Atrial-sensed ventricular-paced rhythm Biventricular pacemaker detected Abnormal ECG When compared with ECG of 28-OCT-2021 08:20, Vent. rate has increased BY 8 BPM Confirmed by NICHOLAS ALCARAZ, SENG ([id number]), book or script editor HILL JERNIGAN ([id number]) on 01/17/2022 11:15:39 AM Referred By: ANDREW Confirmed By:SENG PETERSON MD
--- NOTE | 2022-01-12 12:57 | EDS_ITS ---
HPI <KEREN Rios - Last Filed: 01/12/22 16:21> History of Present Illness Chief Complaint: Edema Narrative Narrative: 71-year-old female with history of CHF, CAD, anxiety presents to the emergency department with multiple weeks of ongoing lower extremity edema. Patient states that has been progressively worse over the last week, she has had this in the past. Patient is currently on Lasix however she is only able to tolerate 20 mg a day. She currently does not have a primary care provider, ever she does see a cutting inspector. She states that today she is here specifically because their legs are not going down and getting worse as well as she is not sleeping properly. When the patient is watching TV, labs or other how she does not have her legs elevated. She does not wear any compression stockings. Patient denies any increase shortness of breath, chest pain, fever or chills. Patient recently had ultrasound of the left leg, these were negative for any DVT. [facility] <KEREN Rios - Last Filed: 01/12/22 16:21> [facility] Medical History (Updated 01/12/22 @ 15:06 by KEREN Rios) Anxiety Atherosclerotic heart disease of [place] coronary artery without angina pectoris CAD (coronary artery disease) Cardiomyopathy Cardiomyopathy, ischemic CHF (congestive heart failure), NYHA class IV Congestive heart failure (CHF) Coronary artery disease COVID-19 virus infection Depression Elevated troponin Former smoker HTN (hypertension) Hypertension Hypertension ICD (implantable cardioverter-defibrillator) in place ICD (implantable cardioverter-defibrillator) in place ICD (implantable cardioverter-defibrillator) in place Non-ST elevation (NSTEMI) myocardial infarction Pacemaker Pneumonia due to COVID-19 virus Presence of biventricular automatic implantable cardioverter defibrillator Vertigo Home Medications hydralazine 10 mg PO TID 02/28/21 [History Last Taken 04/06/21 13:30] acetaminophen 325 mg tablet 325 mg PO ONCE PRN 04/21/21 [History Last Taken Unknown] isosorbide dinitrate 5 mg tablet 5 mg PO TID 04/21/21 [History Last Taken Unknown] spironolactone 12.5 mg PO PRN PRN 04/27/21 [History Last Taken Unknown] aspirin 81 mg PO DAILY 06/12/21 [History Last Taken Unknown] carvedilol 3.125 mg PO BID 06/12/21 [History Last Taken Unknown] sertraline 25 mg PO QHS #15 tab 06/14/21 [Rx Last Taken Unknown] ondansetron 4 mg PO Q6H PRN #10 tab 08/16/21 [Rx Last Taken Unknown] guaifenesin [Mucinex] 600 mg PO PRN 10/27/21 [History Last Taken Unknown] furosemide [Lasix] 20 mg PO DAILY PRN #0 tab 10/29/21 [Rx Last Taken Unknown] multivitamin 1 tab PO DAILY 11/14/21 [History Last Taken Unknown] compr.stocking,knee,long,small [T.E.D. Knee Ongrkp-L-Lcvo] #12 ea 01/12/22 [Rx Last Taken Unknown] Allergy/AdvReac Type Severity Reaction Status Date / Time Sulfa (Sulfonamide Allergy Rash Verified 01/12/22 11:48 Antibiotics) amoxicillin AdvReac Other Verified 01/12/22 11:48 Avprgyc-EYM-JwJ Reductase AdvReac palpitation Verified 01/12/22 11:48 Inhibitor s [Daagmrq-Bdl-Eks Reductase Inhibitor] Family History Father Aneurysm Grandmother Congestive heart failure Brother Diabetes Grandfather Myocardial infarction, Onset Age: 60 Grandfather Myocardial infarction, Onset Age: 60 Other Heart disease Surgical History (Updated 01/12/22 @ 16:[address] Salina Wang MD) History of left heart catheterization (LHC) (~01/31/21) S/P implantation of automatic cardioverter/defibrillator (AICD) Social History Smoking Status: Former smoker alcohol intake: never substance use type: does not use caffeine: Yes Type: coffee ROS <KEREN Rios - Last Filed: 01/12/22 16:21> ROS ED ROS Narrative Constitutional: Negative for fever, chills, weight loss or gain, weakness Eyes: Negative for vision loss, vision change, double vision ENT: Negative for any hearing changes, ringing in the ears, dizziness, discharge, pain Nose: Negative for any congestion, runny nose, sinus pain, allergies Throat: Negative for any sore throat hoarseness, voice changes, Cardiovascular: Negative for any chest pain, tightness, palpitations, racing heartbeat Respiratory: Negative for any coughs, sputum production, coughing, hemoptysis, shortness of breath, shortness of breath on exertion, Gastrointestinal: Negative for any abdominal pain, nausea, vomiting, diarrhea, constipation, blood in stool, blood in vomit : Negative for any urinary frequency, incontinence, dysuria, retention, blood in urine Muscle skeletal: Negative for any muscle joint pain, stiffness, myalgias, arthralgias, neck pain, back pain. Positive for bilateral lower extremity swelling Neurological: Negative for any headache, head injury, dizziness, syncope, numbness or tingling Skin: Negative for any rashes, lumps, itching, abrasions, lacerations Psychiatric: Negative for any depression, anxiety, stress, suicidal ideation, homicidal ideation Hematologic: Negative for any easy bruising, excessive bruising, easy bleeding Allergies: Negative for any eczema, hives, rash EXAM <KEREN Rios - Last Filed: 01/12/22 16:21> Physical Exam Const Vital Signs: 01/12/22 11:46 01/12/22 13:02 01/12/22 13:11 Temperature 98.3 F Temperature Source Temporal Pulse Rate 91 91 Respiratory Rate 18 28 H Respiratory Effort Normal Respiratory Pattern Normal Blood Pressure 126/86 H 121/88 H Blood Pressure Mean 99 99 Pulse Ox 96 95 Oxygen Delivery Method Room Air Room Air 01/12/22 14:00 01/12/22 15:00 Temperature Temperature Source Pulse Rate 91 95 Respiratory Rate 14 Respiratory Effort Respiratory Pattern Blood Pressure 128/94 H 131/98 H Blood Pressure Mean 105 109 Pulse Ox 97 95 Oxygen Delivery Method Room Air Room Air Positive well nourished and well developed General Appearance ED: well developed HEENT Reports moist mucous membranes Eyes PERRL Neck no lymphadenopathy and supple Chest Wall inspection of chest normal and palpation of chest normal Resp normal respiratory effort and clear to auscultation bilaterally Cardio regular rate and regular rhythm GI normal to inspection, nondistended, normoactive bowel sounds, non-tender and non-distended Palpation: soft Back/Spine no CVA tenderness Extremity Extremity Narrative: Patient has +2 pitting edema to bilateral lower extremities below the knee. Negative for any cellulitis, +2 pedal pulses. General Extremety ED: Yes edema General Extremity: edema Neuro oriented x3 and CN's II-XII intact bilaterally Sensorium / Orientation: alert Motor Exam: strength 5/5 throughout Psych mental status grossly normal Skin no rashes or lesions noted <Dr. eLonard Martinez DO - Last Filed: 01/12/22 16:30> Physical Exam Const Vital Signs: 01/12/22 11:46 01/12/22 13:02 01/12/22 13:11 Temperature 98.3 F Temperature Source Temporal Pulse Rate 91 91 Respiratory Rate 18 28 H Respiratory Effort Normal Respiratory Pattern Normal Blood Pressure 126/86 H 121/88 H Blood Pressure Mean 99 99 Pulse Ox 96 95 Oxygen Delivery Method Room Air Room Air 01/12/22 14:00 01/12/22 15:00 Temperature Temperature Source Pulse Rate 91 95 Respiratory Rate 14 Respiratory Effort Respiratory Pattern Blood Pressure 128/94 H 131/98 H Blood Pressure Mean 105 109 Pulse Ox 97 95 Oxygen Delivery Method Room Air Room Air MDM <KEREN Rios - Last Filed: 01/12/22 16:21> [facility] Lab Data Attestation: I reviewed the patient's lab results. Labs: Laboratory Results - last 24 hr 01/12/22 01/12/22 01/12/22 13:00 13:00 13:00 WBC 7.0 RBC 4.57 Hgb 14.1 Hct 42.9 MCV 93.9 MCH 30.9 MCHC 32.9 RDW Std Deviation 49.1 H RDW Coeff of Toby 14.3 Plt Count 273 MPV 10.2 Immature Gran % (Auto) 0.300 Neut % (Auto) 79.6 H Lymph % (Auto) 11.0 L [place] % (Auto) 7.5 Eos % (Auto) 0.7 Baso % (Auto) 0.9 Absolute Neuts (auto) 5.6 Absolute Lymphs (auto) 0.77 L Nucleated RBC % 0 Sodium 137 Potassium 3.8 Chloride 100 Carbon Dioxide 32.0 Anion Gap 5 BUN 20 H Creatinine 0.79 Estim Creat Clear Calc 38.94 Est GFR (MDRD) Af Amer 92 Est GFR (MDRD) Non-Af 76 BUN/Creatinine Ratio 25.2 H Glucose 101 Calcium 9.2 B-Natriuretic Peptide 3584.3 H Radiography Chest X-Ray - ED: 1 View Diagnostic Testing: Clinical Impression(s) from Imaging Studies Chest X-Ray 01/12/22 13:08 IMPRESSION: Small bilateral pleural effusions left greater than right with bibasilar atelectasis superimposed on a mild degree of CHF. Electronically Signed: Red Abreu MD at 13:39 EDT , EKG Paced rhythm: Attestation: I personally reviewed and interpreted this EKG as follows: Comments: AV paced rhythm, rate of 87 bpm, NH interval 140 ms, QRS duration 108 ms, is no acute ST ovation, no acute infarct noted. Treatment and Re-Evaluation Narrative: Patient arrives alert and oriented x4, patient is in no distress, patient vital signs are stable, patient presents the emerge department with ongoing swelling to bilateral lower extremities. Patient did receive a congestive heart failure work-up, patient's CBC was unremarkable, patient's BMP was unremarkable, patient's BNP was 3584, this is baseline for this patient. Patient is in no respiratory distress. Patient was given IV Lasix 20 mg here. Patient's chest x-ray shows small bilateral pleural effusions left greater than the right with bibasilar atelectasis, mild degree of CHF, this was read by the ER attending. Again patient is in no respiratory stress, does not complain of any chest pain. Patient currently refuses to upper dose of Lasix, she also continues to not follow up with any primary care provider because they make her wear a mask. I will write a prescription for the patient to wear compression stockings, she will also be referred to another PCP. Patient given strict return precautions return for any worsening shortness of breath, swelling. Patient instructed to keep her legs elevated at all times while at rest. And to get exercise by ambulation. <Dr. Leonard Martinez, DO - Last Filed: 01/12/22 16:30> [facility] Narrative Medical decision making narrative: Patient seen and conjunction with physician surgical first assistant. Agree with assessment and work-up. Patient does not appear to be hypoxic, tachypneic or short of breath. He does complain of lower extremity edema. Her CBC and BMP are unremarkable. Her BNP is elevated however at 3584. She requested his extra dose of Lasix IV because she states that the oral Lasix does not work for her. She was given 20 of Lasix. Given that she had stable vital signs I thought maybe she could go home with an increase of her Lasix however she expressed to me that she did not think that was safe and that her heart failure was getting worse. I obtained a chest x-ray which showed bilateral pleural effusions as well as interstitial edema on my interpretation. Radiologist has read this similarly. Discussed the case with Dr. Roberts who felt that she was very fragile heart failure patient with a 15% EF and would benefit from inpatient care. At this point we spoke with the hospitalist for admission. Lab Data Labs: Laboratory Results - last 24 hr 01/12/22 01/12/22 01/12/22 13:00 13:00 13:00 WBC 7.0 RBC 4.57 Hgb 14.1 Hct 42.9 MCV 93.9 MCH 30.9 MCHC 32.9 RDW Std Deviation 49.1 H RDW Coeff of Toby 14.3 Plt Count 273 MPV 10.2 Immature Gran % (Auto) 0.300 Neut % (Auto) 79.6 H Lymph % (Auto) 11.0 L [place] % (Auto) 7.5 Eos % (Auto) 0.7 Baso % (Auto) 0.9 Absolute Neuts (auto) 5.6 Absolute Lymphs (auto) 0.77 L Nucleated RBC % 0 Sodium 137 Potassium 3.8 Chloride 100 Carbon Dioxide 32.0 Anion Gap 5 BUN 20 H Creatinine 0.79 Estim Creat Clear Calc 38.94 Est GFR (MDRD) Af Amer 92 Est GFR (MDRD) Non-Af 76 BUN/Creatinine Ratio 25.2 H Glucose 101 Calcium 9.2 B-Natriuretic Peptide 3584.3 H Radiography Diagnostic Testing: Clinical Impression(s) from Imaging Studies Chest X-Ray 01/12/22 13:08 IMPRESSION: Small bilateral pleural effusions left greater than right with bibasilar atelectasis superimposed on a mild degree of CHF. Electronically Signed: Red Abreu MD at 13:39 EDT , Discharge Plan Triage Chief Complaint: Edema ED Midlevel Provider: Livan Jordan ED Provider: Leonard Martinez Dx/Rx/DC Orders Clinical Impression: CHF (congestive heart failure), NYHA class IV, Bilateral edema of lower extremity Primary Care Provider: Care Physician,No Primary Disposition Disposition: Home, Self Care
--- NOTE | 2022-01-12 13:08 | RAD_ITS ---
STUDY: X-RAY CHEST REASON FOR EXAM: Female, 71 years old. Cough TECHNIQUE: Single AP portable view of the chest. COMPARISON: Comparison is made with prior study dated 10/27/2021. FINDINGS: EKG electrodes are seen. Small bilateral pleural effusions left greater than right with bibasilar atelectasis. Increased vascular markings as well as interstitial markings at the lung bases suggestive of mild degree of CHF. There is mild cardiac enlargement. A left-sided ICD is seen. Normal mediastinum and sp. Normal visualized pulmonary arteries. There is atherosclerotic calcification of the aortic arch with tortuosity. There are degenerative changes of the visualized thoracic spine. There is degenerative osteoarthritis of the bilateral shoulders. There is no demonstrated abnormality of the visualized soft tissue structures of the upper abdomen. RAD/Chest 1 View (Portable) IMPRESSION: Small bilateral pleural effusions left greater than right with bibasilar atelectasis superimposed on a mild degree of CHF. Electronically Signed: Red Abreu MD at 13:39 EDT ,
[2022-01-12 13:10] LABS: Absolute Lymphocyte Count 0.77 X10^3/uL (0.83-4.51); Absolute Neutrophil Count 5.6 X10^3/uL (2.0-7.7); Basophil# 0.06 X10^3/uL; Basophil% 0.9 % (0-1); Eosinophil# 0.05 X10^3/uL; Eosinophils% 0.7 % (0-5); Hematocrit 42.9 % (37-47); Hemoglobin 14.1 g/dL (12.0-15.0); Lymphocyte # 0.77 X10^3/ul (0.83-4.51); Mean Corp Hgb Conc 32.9 g/dL (32-36); Mean Corpuscular Hgb 30.9 pg (27.0-32.0); Mean Corpuscular Volume 93.9 fL (81-99); Mean Platelet Vol. 10.2 fl (6.2-12.0); Monocyte# 0.52 X10^3/uL; Monocyte% 7.5 % (0-10); NRBC Flagged by Analyzer 0 % (0-5); Neutrophil # 5.55 X10^3/uL (2.7-7.7); Neutrophil % 79.6 % (47-70); Platelet Count 273 K/mm3 (150-450); RBC Distribution Width CV 14.3 % (11.6-14.6); RBC Distribution Width SD 49.1 fl (35.1-43.9); Red Blood Count 4.57 M/mm3 (4.2-5.4)
[2022-01-12] MEDS: Furosemide 20 MG/2 ML VIAL IV (13:10)
[2022-01-12 13:25] LABS: Anion Gap 5 (5-15); BUN 20 mg/dL (7-18); BUN/Creat Ratio 25.2 RATIO (10-20); Calcium,Total 9.2 mg/dL (8.5-10.1); Chloride 100 mmol/L (98-107); Creatinine, Serum 0.79 mg/dL (0.55-1.02); EST Glomerular Filtration Rate 76 mL/min (>60); Est Glom Filt Rate - Afr Amer 92 mL/min (>60); Estimated Creatinine Clearance 38.94 ml/min; Glucose 101 mg/dL (74-106); Potassium 3.8 mmol/L (3.5-5.1); Sodium Level 137 mmol/L (136-145)
--- NOTE | 2022-01-12 16:07 | PCM.HP.STD ---
HPI - General General Date of Admission: 01/12/22 Date of Service: 01/12/22 Chief Complaint: BL LE edema. HPI Narrative The patient is a 71 y/o F w/ PMHx: Anxiety and Depression, CAD, Ischemic Cardiomyopathy, Chronic Systolic CHF, s/p AICD status, HTN, HLD, Former tobacco use who presents to the [facility] ED on 01/12/22 with history of several weeks of worsening lower extremity swelling more progressive over the last week currently on Lasix 20 mg a day with refusal to alter this regimen secondary to lability of tolerance with no current PCP reportedly because she does not want have to wear a mask prompting eventual ED presentation secondary to difficulty sleeping secondary to orthopnea as well. Patient denies any shortness of breath, chest pain, chest pressure, lightheadedness or dizziness with her recent worsening lower extremity swelling. Patient reports recent duplex ultrasound that was unremarkable. Patient notes that she does following w/ her Teletypesetter Dr. Phelps. While in the urgency room following chest x-ray patient notes increased shortness of breath with increased work of breathing and some accessory muscle usage although oxygenation remained stable. Work-up in the ED included T 98.3, heart rate 91, BP 126/86, respiratory rate 18, 96% on room air, CBC with WC 7, hemoglobin 14.1, platelet 273 with lymphopenia, BMP with BUN/creat 20/0.79, BNP 3584.3, chest x-ray with small bilateral pleural effusions, left greater than right with bibasilar atelectasis superimposed on a mild degree of CHF, EKG paced with no acute evidence of ischemia in the ED patient was administered Lasix [address] Roberts was consulted per ED physician and did evaluate her in the ED with recommendation for admission. Patient with increased dyspnea and work of breathing upon Hospitalist evaluation w/ BIPAP request per patient. [facility] Medical History (Updated 01/12/22 @ 16:[address] Salina Wang MD) Anxiety CAD (coronary artery disease) Cardiomyopathy, ischemic CHF (congestive heart failure), NYHA class IV Coronary artery disease COVID-19 virus infection Depression Former smoker Hypertension Mitral valve disease Non-ST elevation (NSTEMI) myocardial infarction Pneumonia due to COVID-19 virus Presence of biventricular automatic implantable cardioverter defibrillator Home Medications hydralazine 10 mg PO TID 02/28/21 [History Last Taken 04/06/21 13:30] acetaminophen 325 mg tablet 325 mg PO ONCE PRN 04/21/21 [History Last Taken Unknown] isosorbide dinitrate 5 mg tablet 5 mg PO TID 04/21/21 [History Last Taken Unknown] spironolactone 12.5 mg PO PRN PRN 04/27/21 [History Last Taken Unknown] aspirin 81 mg PO DAILY 06/12/21 [History Last Taken Unknown] carvedilol 3.125 mg PO BID 06/12/21 [History Last Taken Unknown] sertraline 25 mg PO QHS #15 tab 06/14/21 [Rx Last Taken Unknown] ondansetron 4 mg PO Q6H PRN #10 tab 08/16/21 [Rx Last Taken Unknown] guaifenesin [Mucinex] 600 mg PO PRN 10/27/21 [History Last Taken Unknown] furosemide [Lasix] 20 mg PO DAILY PRN #0 tab 10/29/21 [Rx Last Taken Unknown] multivitamin 1 tab PO DAILY 11/14/21 [History Last Taken Unknown] compr.stocking,knee,long,small [T.E.D. Knee Bhjyrn-N-Dawu] #12 ea 01/12/22 [Rx Last Taken Unknown] Allergy/AdvReac Type Severity Reaction Status Date / Time Sulfa (Sulfonamide Allergy Rash Verified 01/12/22 11:48 Antibiotics) amoxicillin AdvReac Other Verified 01/12/22 11:48 Fkucjjt-HJM-PvE Reductase AdvReac palpitation Verified 01/12/22 11:48 Inhibitor s [Xdeaksn-Jdk-Suk Reductase Inhibitor] Family History (Updated 01/12/22 @ 16:[address] Salina Wang MD) Father Aneurysm Grandmother Congestive heart failure Brother Diabetes Grandfather Myocardial infarction, Onset Age: 60 Grandfather Myocardial infarction, Onset Age: 60 Mother CVA (cerebral vascular accident) Cancer Hx Lung CA w/ tobacco use history. Other Heart disease Surgical History (Updated 01/12/22 @ 16:[address] Salina Wang MD) History of left heart catheterization (LHC) (~01/31/21) S/P implantation of automatic cardioverter/defibrillator (AICD) Social History (Updated 01/12/22 @ 16:[address] Salina Wang MD) household members: none Smoking Status: Former smoker how long ago did patient quit smoking: Quit 01/2021 with prior 1/2 ppd since 20 y/o. alcohol intake: never substance use type: does not use caffeine: Yes Type: coffee ROS ROS Narrative Admission Review of Systems: CONSTITUTIONAL: No weight loss, fever, chills, + weakness or fatigue. HEENT: Eyes: No visual loss, blurred vision, double vision or yellow sclerae. Ears, Nose, Throat: No hearing loss, sneezing, congestion, runny nose or sore throat. SKIN: No rash or itching, lesions, wounds. CARDIOVASCULAR: + Edema, orthopnea, No chest pain, chest pressure or chest discomfort, syncopal events. RESPIRATORY: + shortness of breath, No cough or sputum, wheezing, hemoptysis. GASTROINTESTINAL: No anorexia, nausea, vomiting or diarrhea, abdominal pain, melena, BRBPR. GENITOURINARY: No dysuria, frequency, urgency or retention. NEUROLOGICAL: No headache, dizziness, syncope, paralysis, ataxia, numbness or tingling in the extremities, focal weakness, change in bowel or bladder control, seizure. MUSCULOSKELETAL: No muscle, back pain, joint pain or stiffness. HEMATOLOGIC: + anemia, bleeding or bruising. LYMPHATICS: No enlarged nodes. No history of splenectomy. PSYCHIATRIC: + history of depression or anxiety. ENDOCRINOLOGIC: No reports of sweating, cold or heat intolerance. No polyuria or polydipsia. ALLERGIES: No history of asthma, hives, eczema or rhinitis. Vital Signs Vital Signs Vital Signs: 01/12/22 11:46 01/12/22 13:02 01/12/22 13:11 Temperature 98.3 F Temperature Source Temporal Pulse Rate 91 91 Respiratory Rate 18 28 H Respiratory Effort Normal Respiratory Pattern Normal Blood Pressure 126/86 H 121/88 H Blood Pressure Mean 99 99 Pulse Ox 96 95 Oxygen Delivery Method Room Air Room Air 01/12/22 14:00 01/12/22 15:00 Temperature Temperature Source Pulse Rate 91 95 Respiratory Rate 14 Respiratory Effort Respiratory Pattern Blood Pressure 128/94 H 131/98 H Blood Pressure Mean 105 109 Pulse Ox 97 95 Oxygen Delivery Method Room Air Room Air Weight Weight: 125 lb Body Mass Index (BMI) 23.6 Physical Exam Narrative Physical Examination: General: Awake, alert, oriented x 3 and cooperative, seated upright in the ED bed, no she is having difficulty breathing with increased work of breathing and accessory muscle usage although oxygenation is stable Skin: Normal color, normal turgor, no icterus, no cyanosis. HEENT: AT/NC, EOMI, PERRLA, MMM, no carotid bruits, + JVD noted. Lungs: Diminished, greater bases, increased work of breathing accessory muscle usage noted, rales bases, no rhonchi or wheezing. Heart: Currently mildly tachycardic with regular rhythm/paced; no gallop, rub audible. Abdomen: Soft, NTTP, ND, normal BS, no HSM. Extremities: No cyanosis, no clubbing, bilateral lower extremity pedal to distal knee 2-3+ pitting edema. Neurological: Patient awake, alert, oriented as noted, cognitive function intact; pupils equally reactive to light and accommodation, cranial nerves II-XII grossly normal, moving all 4 extremities, no focal deficits, strength moderately to severely globally decreased secondary to acute presentation Psychiatric: Affect appears anxious, increased work of breathing accessory muscle usage although oxygenation stable, no acute evidence of depressive or anxiety feelings. Results Lab / Micro Data Result Diagrams: 01/12/22 13:00 01/12/22 13:00 Labs: Laboratory Results - last 24 hr 01/12/22 13:00: WBC 7.0, RBC 4.57, Hgb 14.1, Hct 42.9, MCV 93.9, MCH 30.9, MCHC 32.9, RDW Std Deviation 49.1 H, RDW Coeff of Toyb 14.3, Plt Count 273, MPV 10.2, Immature Gran % (Auto) 0.300, Neut % (Auto) 79.6 H, Lymph % (Auto) 11.0 L, [place] % (Auto) 7.5, Eos % (Auto) 0.7, Baso % (Auto) 0.9, Absolute Neuts (auto) 5.6, Absolute Lymphs (auto) 0.77 L, Nucleated RBC % 0 01/12/22 13:00: Sodium 137, Potassium 3.8, Chloride 100, Carbon Dioxide 32.0, Anion Gap 5, BUN 20 H, Creatinine 0.79, Estim Creat Clear Calc 38.94, Est GFR (MDRD) Af Amer 92, Est GFR (MDRD) Non-Af 76, BUN/Creatinine Ratio 25.2 H, Glucose 101, Calcium 9.2 01/12/22 13:00: B-Natriuretic Peptide 3584.3 H Radiology Impression Chest X-Ray 01/12/22 13:08 IMPRESSION: Small bilateral pleural effusions left greater than right with bibasilar atelectasis superimposed on a mild degree of CHF. Electronically Signed: Red Abreu MD at 13:39 EDT , Assessment & Plan Assessment/Plan (1) CHF exacerbation: QUALIFIERS: Heart failure type: systolic Qualified Code(s): I50.23 - Acute on chronic systolic (congestive) heart failure PLAN: The patient is a 71 y/o F w/ PMHx: Anxiety and Depression, CAD, Ischemic Cardiomyopathy, Chronic Systolic CHF, s/p AICD status, HTN, HLD, Former tobacco use who presents to the [facility] ED on 01/12/22 with history of several weeks of worsening lower extremity swelling more progressive over the last week currently on Lasix 20 mg a day with refusal to alter this regimen secondary to lability of tolerance with no current PCP reportedly because she does not want have to wear a mask prompting eventual ED presentation secondary to difficulty sleeping. #1. Acute Decompensated Systolic CHF, Ischemic Cardiomyopathy: Patient administered IV lasix in the ED, will admit to PCU, maintain on cardiac telemetry, obtain cardiac enzyme series, obtain serial EKGs, continue IV bumex diuresis with oral metolazone per cardiology recommendation, monitor I/Os, maintain on intake restriction, continue medical therapy, obtain TSH and magnesium level. Recent ECHO noted dilated LV, LV systolic function severely decreased with EF 16%, RV normal, RV systolic function normal, dilated LA, RVSP underestimated likely secondary to a weaker incomplete tricuspid regurgitation signal with 38 mmHg consistent with mild pulmonary hypertension. Cardiology consulted and evaluated patient in the ED. #2. CAD, nonobstructive per patient report, ischemic cardiomyopathy: Patient denies any PCI intervention, continue aspirin, Coreg, not on FLAVIO inhibitor/ARB #3. Hypertension: Continue home regimen including IV Bumex as well as metolazone, spironolactone, Coreg, isosorbide, hydralazine with further adjustments per cardiology discretion, PRN hydralazine. #4. Hyperlipidemia: Not on statin therapy with noted adverse reaction, FLP in a.m. #5. Anxiety and depression: We will continue patient home sertraline regimen. #6. Former tobacco use: Encourage continued tobacco cessation. #7. DVT prophylaxis: SCDs, Lovenox. #8. CODE status: Patient CHING is her brother and son and living will is currently in place. Discussed CODE status at length including difference between FULL code, DNR-CCA and DNR-CC status. Following discussions about the differences in these status, requested DNR-CCA, no intubation status. Advanced Care Planning Face to Face Time: 16 minutes. Charges/Coding Visit Charges Inpatient E&M: 91483 Init Hosp L3 Procedures Hospitalists Procedures: 95287 Advncd Care Plan 30 Min
--- NOTE | 2022-01-12 16:48 | CM.ED ---
RN CM Assessment Introduced role of RN CM to patient. Patient unwilling to discuss IA in lengths at this time. Agreeable to confirm with this teletypewriter installer that there are no changes from previous RNCM IA that was completed on 10/28/21.? Patient is alert, oriented and able?to participate in RN CM Assessment. ?Care providers, pharmacy, and demographics verified. Admit Dx: IP for CHF exacerbation Re-Admit: No Barriers/Issues: Patient with recurrent admissions for CHF exacerbation PCP: None- list was provided in the past. Specialists: Cardio- [facility], HF- [facility]. Was active with [facility] (unsure as patient voiced no changes from this assessment but did not directly ask if still active on this admit) Preferred Pharmacy: [facility]. Otherwise does use [facility] or [facility] on the weekends. Insurance: [facility] A/B Rx Benefit:?None LNOK: Brother Osmel Lau and inocencio Andres LW/HPOA: States has both- HPOA is inocencio Andres and brother Osmel Lau Living Arrangements:? Lives alone in a 2SH, 3 steps to enter ADL?s: independent with ambulation and ADLs/IADLs. Transportation: Patient drives and friends can assist if needed DME: [facility], Home O2 HHC: None SNF: None Goal: Home and follow for any potential Home O2 order changes DC PLAN: Home and follow for any Home O2 order changes. HIREN Hernandez
--- NOTE | 2022-01-12 16:52 | CON.PCM.CA_ITS ---
Documented by User: Mirta TAFOYA, PA 01/12/22 17:17 Assessment & Plan Assessment/Plan (1) CHF (congestive heart failure), NYHA class IV: (2) Presence of biventricular automatic implantable cardioverter defibrillator: PLAN: * Would like to have pt on IV diuretics. Recommend using IV bumex, and adding metolazone. Will need to monitor wts, renal function and BP closely as she does have a hx of not tolerating medications. d/t low BP readings when her weights are stable. * Pt is on palliative care for her CHF, do not feel that we need to obtain any additional cardiac testing at this time. Reviewed testing from 2020. * Bp is elevated, however with uses of diuretics will continue to monitor and adjust if needed. HPI Consult Data Date of Consult: 01/12/22 HPI Narrative HPI Narrative: TIFFANY CARDONA, is a 71 F who presented to the ER increased edema. Pt notes that over the last 2-3 weeks she has needed to use her furosemide daily. Prior to this it was prn. She has significant edema in her lower extremities. She has gained ~10 lbs since October. She notes that she has been talking with pallative care, valeria huerta that last week she was told that her lungs are clear. With her increased edema, SOB she felt she should come into the ER. She does not feel that she would be able to have one dose of IV lasix and then sent home for OP management. She has been having issues sleeping. She does not have any chest pain. She is not able to lay flat d/t her SOB. She does not have any palpitations that she is aware of. She does have a history of coronary artery disease, ischemic cardiomyopathy with ICD placement, hypertension. In January of 2021 she was evaluated at [facility] for her significant CAD and Cardiomyopathy. It was felt that she was not a candidate for multivessel PCI, she was also not felt to be a candidate for bypass surgery or a candidate for LVAD therapy. Conservative medical management was recommende d. She did undergo a PET scan in March 2021 at [facility] this did not demonstrate any evidence of hibernation. She had evidence of a large scar in the tertiary territory of the LAD, there was stress ischemia evaluation was not requested at that time, left ventricle was dilated severely with severely decreased LV systolic function. It was considered a high risk scan. She feels that she does not tolerate lasix d/t her allergy to sulfa. She also does not tolerate FLAVIO/ ARB or Entresto. [facility] Medical History Anxiety CAD (coronary artery disease) Cardiomyopathy, ischemic CHF (congestive heart failure), NYHA class IV Coronary artery disease COVID-19 virus infection Depression Former smoker Hypertension Mitral valve disease Non-ST elevation (NSTEMI) myocardial infarction Pneumonia due to COVID-19 virus Presence of biventricular automatic implantable cardioverter defibrillator Home Medications hydralazine 10 mg PO TID 02/28/21 [History Last Taken 04/06/21 13:30] acetaminophen 325 mg tablet 325 mg PO ONCE PRN 04/21/21 [History Last Taken Unknown] isosorbide dinitrate 5 mg tablet 5 mg PO TID 04/21/21 [History Last Taken Unknown] spironolactone 12.5 mg PO DAILY 04/27/21 [History Last Taken Unknown] aspirin 81 mg PO DAILY 06/12/21 [History Last Taken Unknown] carvedilol 3.125 mg PO BID 06/12/21 [History Last Taken Unknown] ondansetron 4 mg PO Q6H PRN #10 tab 08/16/21 [Rx Last Taken Unknown] guaifenesin [Mucinex] 600 mg PO PRN PRN 10/27/21 [History Last Taken Unknown] furosemide [Lasix] 20 mg PO DAILY PRN #0 tab 10/29/21 [Rx Last Taken Unknown] multivitamin 1 tab PO DAILY 11/14/21 [History Last Taken Unknown] compr.stocking,knee,long,small [T.E.D. Knee Cqcwsy-L-Amio] #12 ea 01/12/22 [Rx Last Taken Unknown] sertraline 25 mg PO QHS 01/12/22 [History Last Taken Unknown] spironolactone 12.5 mg PO DAILY 01/12/22 [History Last Taken Unknown] tizanidine 2 mg PO BID PRN PRN 01/12/22 [History Last Taken Unknown] Allergy/AdvReac Type Severity Reaction Status Date / Time Sulfa (Sulfonamide Allergy Rash Verified 01/12/22 11:48 Antibiotics) amoxicillin AdvReac Other Verified 01/12/22 11:48 Dapbffx-NWI-TnM Reductase AdvReac palpitation Verified 01/12/22 11:48 Inhibitor s [Qcpmxnd-Flq-Djz Reductase Inhibitor] Family History (Updated 01/12/22 @ 16:[address] Salina Wang MD) Father Aneurysm Grandmother Congestive heart failure Brother Diabetes Grandfather Myocardial infarction, Onset Age: 60 Grandfather Myocardial infarction, Onset Age: 60 Mother CVA (cerebral vascular accident) Cancer Hx Lung CA w/ tobacco use history. Other Heart disease Surgical History (Updated 01/12/22 @ 16:[address] Salina Wang MD) History of left heart catheterization (LHC) (~01/31/21) S/P implantation of automatic cardioverter/defibrillator (AICD) Social History (Updated 01/12/22 @ 16:[address] Salina Wang MD) household members: none Smoking Status: Former smoker how long ago did patient quit smoking: Quit 01/2021 with prior 1/2 ppd since 20 y/o. alcohol intake: never substance use type: does not use caffeine: Yes Type: coffee ROS Constitutional Constitutional: Reports weight gain; Denies anorexia, body ache(s), chills or fatigue Eyes Eyes: Denies change in vision or loss of peripheral vision ENT HEENT: Denies bleeding gums, dizziness or headache(s) Cardiovascular Cardiovascular: Reports as per HPI Respiratory/Chest Respiratory/Chest: Reports as per HPI; Denies cough Gastrointestinal Gastrointestinal: Reports bloating; Denies abdominal pain, loose stools, melena, nausea or rectal bleeding Musculoskeletal Musculoskeletal: Denies difficulty walking, extremity pain or joint pain Neurologic Neurologic: Denies abnormal gait, abnormal hearing, abnormal movements or abnormal speech Physical Exam Const alert and oriented x3 General Appearance: frail Nutritional Appearance: thin HEENT normocephalic, head/scalp atraumatic, hearing grossly normal bilaterally, external ears normal, TM's normal bilaterally and nasal mucous membranes and turbinates normal Eyes PERRL, EOMs intact bilaterally, conjunctivae normal and no scleral icterus Neck General: JVD Resp Effort and Inspection: tachypneic Auscultation: diminished lung sounds bilateral throughout Cardio Rate: tachycardic Heart Sounds: S1 normal and S2 normal; Negative for click, gallop, murmur or rub GI normal to inspection, nondistended, normoactive bowel sounds, soft to palpation, non-tender and non-distended Extremity Extremity Narrative: +3 edema into thighs Neuro oriented x3, CN's II-XII intact bilaterally, moves all extremities and no focal motor deficits Risk Stratification Risk Stratification Applicable: Yes Age >/= 65: Yes >/= 3 CAD Risk Factors (HTN, HLD, DM, family hx of CAD, or current smoker): Yes Aspirin Use in the Past 7 Days: Yes Severe Angina (>/= episodes in 24 hours): No EKG ST Changes >/= 0.5mm: No Positive Cardiac Marker: No KATINA Risk Stratification Score: 3 KATINA % Risk: 13% Risk Objective Data Vital Signs: Vital Signs Temp Pulse Resp BP Pulse Ox 98.3 F 95 14 131/98 H 95 01/12/22 11:46 01/12/22 15:00 01/12/22 14:00 01/12/22 15:00 01/12/22 15:00 Oxygen Delivery Method Room Air Weight: 125 lb Body Mass Index (BMI) 23.6 Lab / Micro Data Result Diagrams: 01/12/22 13:00 01/12/22 13:00 Labs: Laboratory Results - last 24 hr 01/12/22 13:00: WBC 7.0, RBC 4.57, Hgb 14.1, Hct 42.9, MCV 93.9, MCH 30.9, MCHC 32.9, RDW Std Deviation 49.1 H, RDW Coeff of Toby 14.3, Plt Count 273, MPV 10.2, Immature Gran % (Auto) 0.300, Neut % (Auto) 79.6 H, Lymph % (Auto) 11.0 L, [place] % (Auto) 7.5, Eos % (Auto) 0.7, Baso % (Auto) 0.9, Absolute Neuts (auto) 5.6, Absolute Lymphs (auto) 0.77 L, Nucleated RBC % 0 01/12/22 13:00: Sodium 137, Potassium 3.8, Chloride 100, Carbon Dioxide 32.0, Anion Gap 5, BUN 20 H, Creatinine 0.79, Estim Creat Clear Calc 38.94, Est GFR (MDRD) Af Amer 92, Est GFR (MDRD) Non-Af 76, BUN/Creatinine Ratio 25.2 H, Glucose 101, Calcium 9.2 01/12/22 13:00: B-Natriuretic Peptide 3584.3 H Cardiology Labs/Tests 01/12/22 13:00: WBC 7.0, RBC 4.57, Hgb 14.1, Hct 42.9, MCV 93.9, MCH 30.9, MCHC 32.9, Plt Count 273, MPV 10.2, Immature Gran % (Auto) 0.300, Neut % (Auto) 79.6 H, Lymph % (Auto) 11.0 L, [place] % (Auto) 7.5, Eos % (Auto) 0.7, Baso % (Auto) 0.9, Absolute Neuts (auto) 5.6, Nucleated RBC % 0 01/12/22 13:00: Sodium 137, Potassium 3.8, Chloride 100, Carbon Dioxide 32.0, Anion Gap 5, BUN 20 H, Creatinine 0.79, Est GFR (MDRD) Af Amer 92, Est GFR (MDRD) Non-Af 76, BUN/Creatinine Ratio 25.2 H, Glucose 101, Calcium 9.2 01/12/22 13:00: B-Natriuretic Peptide 3584.3 H ECHO 02/09: Severely dilated left ventricle. Severe segmental systolic dysfunction (see wall motion). The estimated ejection fraction is 15 %. The left atrium is mildly enlarged. Moderate diffuse mitral valve thickening. Mild papillary muscle dysfunction of the mitral valve. Moderate (2+) mitral valve insufficiency. Mild tricuspid valve insufficiency. Moderate focal aortic valve calcification. Small pericardial effusion. There are no echocardiographic indications of cardiac tamponade. Right ventricular systolic pressure estimated to be 31 mmHg. Diastolic function is indeterminate. ICD or pacer leads identified within the right atrium ICD or pacer leads identified within the right ventricle. Cardiac Cath 02/09: DOMINANCE: Right Dominant LEFT HEART ASSESSMENT Left Ventricular Ejection Fraction: by LV Gram 15 % Anterior Hypokinesis - Severe. Inferior Basal Hypokinesis - Severe. Inferior Mid Akinesis. Apical Akinesis Elevated Left Ventricular End Diastolic Pressure LVEDP: 14 mmHg LEFT MAIN: Mild calcification, distal: 50 % Stenosis LEFT ANTERIOR DESCENDING ARTERY: PROX LAD: Moderate calcification, 99 % Stenosis MID LAD: Moderate calcification DISTAL LAD: 99 % Stenosis CIRCUMFLEX ARTERY: Mild luminal irregularities, diffuse: 25 % Stenosis OM 1: Proximal - 25 % Stenosis RAMUS: Mild luminal irregularities, 75 % Stenosis RIGHT CORONARY ARTERY: Mild calcification Mild luminal irregularities MID RCA: irregular: 85 % Stenosis DISTAL RCA: eccentric: 25 % Stenosis, 99 % Stenosis COLLATERAL FLOW: Collateral flow from Left to Right AORTIC ROOT: Angiographically normal Radiography Diagnostic Testing: Radiology Impression Chest X-Ray 01/12/22 13:08 IMPRESSION: Small bilateral pleural effusions left greater than right with bibasilar atelectasis superimposed on a mild degree of CHF. Electronically Signed: Red Abreu MD at 13:39 EDT , Documented by User: Dr. Kelly Roberts MD 01/12/22 17:35 Assessment & Plan Assessment/Plan (1) CHF (congestive heart failure), NYHA class IV: (2) Presence of biventricular automatic implantable cardioverter defibrillator: (3) CHF exacerbation: QUALIFIERS: Heart failure type: systolic Qualified Code(s): I50.23 - Acute on chronic systolic (congestive) heart failure (4) Bilateral edema of lower extremity: PLAN: I independently saw this patient, examined, evaluated in the ER with review of all the clinical data, current labs EKG cardiac monitors as well reviewed the record from the office Patient has severe ischemic cardiomyopathy with severe LV systolic dysfunction ejection fraction from 15% Presenting with remarkable lower extremity edema, weight gain shortness of breath and has pleural effusion on chest x-ray. She was not responding well to the current diuretic with Lasix I formulated cardiac care plan patient will be admitted to PCU will start on Bumex, Zaroxolyn, and cardiac care plan discussed in detail with the patient, medical team, nursing staff as documented by the midlevel We will continue to monitor and follow-up clinically. HPI Consult Data Date of Consult: 01/12/22 [facility] Medical History Anxiety CAD (coronary artery disease) Cardiomyopathy, ischemic CHF (congestive heart failure), NYHA class IV Coronary artery disease COVID-19 virus infection Depression Former smoker Hypertension Mitral valve disease Non-ST elevation (NSTEMI) myocardial infarction Pneumonia due to COVID-19 virus Presence of biventricular automatic implantable cardioverter defibrillator Home Medications hydralazine 10 mg PO TID 02/28/21 [History Last Taken 04/06/21 13:30] acetaminophen 325 mg tablet 325 mg PO ONCE PRN 04/21/21 [History Last Taken Unknown] isosorbide dinitrate 5 mg tablet 5 mg PO TID 04/21/21 [History Last Taken Unknown] spironolactone 12.5 mg PO DAILY 04/27/21 [History Last Taken Unknown] aspirin 81 mg PO DAILY 06/12/21 [History Last Taken Unknown] carvedilol 3.125 mg PO BID 06/12/21 [History Last Taken Unknown] ondansetron 4 mg PO Q6H PRN #10 tab 08/16/21 [Rx Last Taken Unknown] guaifenesin [Mucinex] 600 mg PO PRN PRN 10/27/21 [History Last Taken Unknown] furosemide [Lasix] 20 mg PO DAILY PRN #0 tab 10/29/21 [Rx Last Taken Unknown] multivitamin 1 tab PO DAILY 11/14/21 [History Last Taken Unknown] compr.stocking,knee,long,small [T.E.D. Knee Xrdmyz-I-Oxyf] #12 ea 01/12/22 [Rx Last Taken Unknown] sertraline 25 mg PO QHS 01/12/22 [History Last Taken Unknown] spironolactone 12.5 mg PO DAILY 01/12/22 [History Last Taken Unknown] tizanidine 2 mg PO BID PRN PRN 01/12/22 [History Last Taken Unknown] Allergy/AdvReac Type Severity Reaction Status Date / Time Sulfa (Sulfonamide Allergy Rash Verified 01/12/22 11:48 Antibiotics) amoxicillin AdvReac Other Verified 01/12/22 11:48 Pzbkfdh-OGG-BtV Reductase AdvReac palpitation Verified 01/12/22 11:48 Inhibitor s [Costkkm-Zvj-Eko Reductase Inhibitor] Family History (Updated 01/12/22 @ 16:[address] Salina Wang MD) Father Aneurysm Grandmother Congestive heart failure Brother Diabetes Grandfather Myocardial infarction, Onset Age: 60 Grandfather Myocardial infarction, Onset Age: 60 Mother CVA (cerebral vascular accident) Cancer Hx Lung CA w/ tobacco use history. Other Heart disease Surgical History (Updated 01/12/22 @ 16:[address] Salina Wang MD) History of left heart catheterization (LHC) (~01/31/21) S/P implantation of automatic cardioverter/defibrillator (AICD) Social History (Updated 01/12/22 @ 16:[address] Salina Wang MD) household members: none Smoking Status: Former smoker how long ago did patient quit smoking: Quit 01/2021 with prior 1/2 ppd since 20 y/o. alcohol intake: never substance use type: does not use caffeine: Yes Type: coffee Lab / Micro Data Result Diagrams: 01/12/22 13:00 01/12/22 13:00
--- NOTE | 2022-01-12 17:09 | ED.RN ---
Patient experiencing increased shortness of breath, diaphoresis, tachycardic and requesting bipap. No ED order for bipap, patient 89% RA, placed on 2lpm. Noted admission order for bipap, ED physician aware of patient becoming short of breath. Admitted to floor, bipap to begin on floor.
[2022-01-12 17:57] LABS: Magnesium 2.2 mg/dL (1.6-2.6)
[2022-01-12 19:18] LABS: Troponin-I HS 106 pg/mL (3.0-54.0)
[2022-01-12] MEDS: Bumetanide 1 MG/4 ML Vial 2 MG IV (19:46)
[2022-01-12] MEDS: metOLazone 5 MG Tablet PO (19:46)
[2022-01-12] MEDS: 0.9% Saline Lock 10 ML Syringe IV (19:47)
[2022-01-12 21:42] LABS: Troponin-I HS 1132 pg/mL (3.0-54.0)
[2022-01-12] MEDS: Isosorbide DN 10 MG Tablet 5 MG PO (22:44)
[2022-01-12] MEDS: Carvedilol 3.125 MG TABLET PO (22:44)
[2022-01-12] MEDS: Sertraline 50 MG Tablet 25 MG PO (22:44)
[2022-01-12] MEDS: hydrALAZINE 10 MG Tablet PO (22:44)
[2022-01-13] VITALS (12 sets, daily range): BP systolic 97–125; BP diastolic 59–81; PULSE 77–91; RESP 16–18; TEMP 36.4–37.5; O2SAT 90–99
--- NOTE | 2022-01-13 02:24 | PCM.HOSP.N ---
Hospitalist Note Patient admitted with CHF exacerbation. High BNP. Progressive worsening of shortness of breath. Serial troponin shows increased 106, 1132 and third troponin nurse text me [phone]. Overall seems non-STEMI main precipitating factor for CHF exacerbation. Chest x-ray shows small bilateral pleural effusion left greater than right with bibasilar atelectasis consistent with mild degree of CHF. Started on IV heparin drip with bolus. Patient already on diuretic Bumex carvedilol, hydralazine, isosorbide dinitrate and metolazone. [employer] is consulted. Discussed with the nursing staff.
[2022-01-13 02:29] LABS: Troponin-I HS 3359 pg/mL (3.0-54.0)
[2022-01-13 02:40] LABS: Anion Gap 8 (5-15); BUN 20 mg/dL (7-18); BUN/Creat Ratio 22.1 RATIO (10-20); Chloride 97 mmol/L (98-107); EST Glomerular Filtration Rate 65 mL/min (>60); Est Glom Filt Rate - Afr Amer 79 mL/min (>60); Estimated Creatinine Clearance 43.26 ml/min; Glucose 85 mg/dL (74-106); Magnesium 1.9 mg/dL (1.6-2.6); Partial Thromboplast Time 30.9 Seconds (24.1-36.2); Potassium 3.1 mmol/L (3.5-5.1); Sodium Level 139 mmol/L (136-145)
[2022-01-13] MEDS: Heparin Injection (Vial) 5,000 UNIT/ML VIAL 4000 UNIT IV (02:44)
--- NOTE | 2022-01-13 05:55 | RAD_ITS ---
STUDY: X-RAY CHEST REASON FOR EXAM: Female, 71 years old. Dyspnea TECHNIQUE: Single AP portable view of the chest. COMPARISON: Comparison is made with prior study dated 01/12/2022. FINDINGS: EKG electrodes are seen. Since prior study, there has been a mild progression of the small bilateral pleural effusions with bibasilar atelectasis and/or infiltrates worse in the left lower lobe. This is superimposed on a mild degree of CHF. There is moderate cardiac enlargement. A left-sided dual-chamber pacemaker is seen. Normal mediastinum and sp. Normal visualized pulmonary arteries. There is atherosclerotic calcification of the aortic arch with tortuosity. There are diffuse degenerative changes of the visualized thoracic spine. There is degenerative osteoarthritis of the bilateral shoulders. There is no demonstrated abnormality of the visualized soft tissue structures of the upper abdomen. RAD/Chest 1 View (Portable) IMPRESSION: Since prior study, there has been a progression of the small bilateral pleural effusions with bibasilar atelectasis slightly worse at the left lung base superimposed on CHF. Electronically Signed: Red Abreu MD at 14:09 EDT ,
[2022-01-13] MEDS: hydrALAZINE 10 MG Tablet PO ×3 (06:13→22:28)
--- NOTE | 2022-01-13 06:20 | ECHOD_ITS ---
Reason For Study: CHF Procedure This was a 2D Doppler, Color Flow transthoracic echocardiogram. Exam performed portable in patient room. Left Ventricle Severely dilated left ventricle. The estimated ejection fraction is 10-15 %. Right Ventricle Normal right ventricle. Mild global right ventricular systolic dysfunction. Atria The left atrium is mildly enlarged. Normal right atrium. Mitral Valve There is mild mitral annular calcification. Mild-Moderate (1-2+) mitral valve insufficiency. Tricuspid Valve Normal tricuspid valve. Mild tricuspid valve insufficiency. Aortic Valve Mild diffuse aortic valve calcification. Pulmonic Valve The pulmonic valve is not well visualized. Great Vessels Normal aortic root. Pericardium/Pleural Small pericardial effusion. MMode/2D Measurements & Calculations LVIDd: 7.5 cm IVSd: 0.51 cm Ao root diam: 3.2 cm LVIDs: 6.8 cm LVPWd: 1.1 cm RVDd: 3.3 cm FS: 10.1 % LAV(MOD-bp): 76.7 ml LVAd ap4: 69.4 cm2 LVAd ap2: 66.7 cm2 LAV(MOD-bp) Indexed: 49.9 ml/m2 LVLd ap4: 11.0 cm LVLd ap2: 11.1 cm LAV(MOD-sp2): 69.8 ml EDV(MOD-sp4): 364.9 ml EDV(MOD-sp2): 325.8 ml LAV(MOD-sp4): 67.9 ml EDV(sp4-el): 373.6 ml EDV(sp2-el): 338.9 ml LVAs ap4: 64.3 cm2 LVAs ap2: 56.8 cm2 LVLs ap4: 10.8 cm LVLs ap2: 10.4 cm ESV(MOD-sp4): 314.7 ml ESV(MOD-sp2): 257.0 ml ESV(sp4-el): 324.1 ml ESV(sp2-el): 263.1 ml EF(MOD-sp4): 13.7 % EF(MOD-sp2): 21.1 % EF(sp4-el): 13.3 % SV(MOD-sp4): 50.1 ml SV(MOD-sp2): 68.8 ml SV(sp4-el): 49.5 ml LA A4 area: 22.4 cm2 RA A4 area: 21.6 cm2 Doppler Measurements & Calculations MV E max alberto: 94.3 cm/sec Lat Peak E' Alberto: 4.4 cm/sec Med Peak E' Alberto: 7.5 cm/sec MV A max alberto: 109.5 cm/sec E/E' lat: 21.5 E/E' med: 12.6 MV E/A: 0.86 Ao V2 max: 125.9 cm/sec LV V1 max: 91.3 cm/sec PA V2 max: 84.4 cm/sec Ao max P.3 mmHg LV V1 max P.3 mmHg TR max alberto: 291.0 cm/sec TR max P.1 mmHg ECHO/Echo Complete Interpretation Summary The estimated ejection fraction is 10-15 %. Severe LV systolic Dysfunction with global LV hypokinesia Moderate MR ICD leads noted on R.side Small pericardial effuion with no haemodynmic effect No significant changes from previous Echo january 2021 Ordering Physician: Salina Wang Performed By: Kayla Tuttle RDCS
--- NOTE | 2022-01-13 06:20 | PCM.PN.HOSP ---
Subjective Subjective Patient notes feeling significantly improved from day prior, off BiPAP and transitioned even to room air. Patient did have significantly elevated troponins overnight and was started on a heparin drip. She notes this is happened prior with CHF exacerbations. Cardiology discussion with patient and evaluation of her records with decision to continue medical management and defer any consideration for repeat cardiac catheterization based on her prior. Patient denies fevers, chills, nausea, emesis, abdominal pain, chest pain or recurrent or worsening dyspnea. Objective Data Objective Data Vital Signs: Vital Signs Temp Pulse Resp BP Pulse Ox 97.7 F L 78 18 120/77 99 01/13/22 04:46 01/13/22 06:13 01/13/22 04:46 01/13/22 06:13 01/13/22 04:46 Oxygen Flow Rate (L/min) 1 Oxygen Delivery Method Nasal Cannula Weight: 123 lb 0.287 oz Body Mass Index (BMI) 23.2 Intake & Output: Intake and Output for Last 24 Hours 01/11/22 01/12/22 01/13/22 23:59 23:59 23:59 Output Total 1100 / 1100 Balance -1100 / -1100 Lab / Micro Data Result Diagrams: 01/13/22 08:45 01/13/22 08:45 Labs: Laboratory Results - last 24 hr 01/12/22 13:00: WBC 7.0, RBC 4.57, Hgb 14.1, Hct 42.9, MCV 93.9, MCH 30.9, MCHC 32.9, RDW Std Deviation 49.1 H, RDW Coeff of Toby 14.3, Plt Count 273, MPV 10.2, Immature Gran % (Auto) 0.300, Neut % (Auto) 79.6 H, Lymph % (Auto) 11.0 L, Gates % (Auto) 7.5, Eos % (Auto) 0.7, Baso % (Auto) 0.9, Absolute Neuts (auto) 5.6, Absolute Lymphs (auto) 0.77 L, Nucleated RBC % 0 01/12/22 13:00: Sodium 137, Potassium 3.8, Chloride 100, Carbon Dioxide 32.0, Anion Gap 5, BUN 20 H, Creatinine 0.79, Estim Creat Clear Calc 38.94, Est GFR (MDRD) Af Amer 92, Est GFR (MDRD) Non-Af 76, BUN/Creatinine Ratio 25.2 H, Glucose 101, Calcium 9.2 01/12/22 13:00: B-Natriuretic Peptide 3584.3 H 01/12/22 13:00: Magnesium 2.2 01/12/22 18:23: Troponin I High Sens 106 H 01/12/22 20:53: Troponin I High Sens 1132 H* 01/13/22 00:22: Troponin I High Sens 3359 H* 01/13/22 00:22: Sodium 139, Potassium 3.1 L, Chloride 97 L, Carbon Dioxide 34.0 H, Anion Gap 8, BUN 20 H, Creatinine 0.90, Estim Creat Clear Calc 43.26, Est GFR (MDRD) Af Amer 79, Est GFR (MDRD) Non-Af 65, BUN/Creatinine Ratio 22.1 H, Glucose 85, Calcium 9.0, Magnesium 1.9 01/13/22 00:22: APTT 30.9 Radiography Diagnostic Testing: Radiology Impression Chest X-Ray 01/12/22 13:08 IMPRESSION: Small bilateral pleural effusions left greater than right with bibasilar atelectasis superimposed on a mild degree of CHF. Electronically Signed: Red Abreu MD at 13:39 EDT , Physical Exam Narrative Physical Examination: General: Awake, alert, oriented x 3 and cooperative, seated upright in the PCU bed, notes feeling improved, currently transitioned to room air. Skin: Normal color, normal turgor, no icterus, no cyanosis. HEENT: AT/NC, EOMI, PERRLA, MMM. Lungs: Diminished bases, improved air movement, improved effort, rales resolving, no rhonchi or wheezing, normalized effort. Heart: Regular rate with regular rhythm/paced; no gallop, rub audible. Abdomen: Soft, NTTP, ND, normal BS. Extremities: No cyanosis, no clubbing, resolved bilateral lower extremity swelling. Neurological: Patient awake, alert, oriented as noted, cognitive function intact; pupils equally reactive to light and accommodation, cranial nerves II-XII grossly normal, moving all 4 extremities, no focal deficits, strength improved, mildly to moderately globally decreased secondary to acute presentation Psychiatric: Affect appears improved, no acute evidence of depressive or anxiety feelings. Assessment & Plan Assessment/Plan (1) CHF exacerbation: QUALIFIERS: Heart failure type: systolic Qualified Code(s): I50.23 - Acute on chronic systolic (congestive) heart failure PLAN: The patient is a 71 y/o F w/ PMHx: Anxiety and Depression, CAD, Ischemic Cardiomyopathy, Chronic Systolic CHF, s/p AICD status, HTN, HLD, Former tobacco use who presents to the [facility] ED on 01/12/22 with history of several weeks of worsening lower extremity swelling more progressive over the last week currently on Lasix 20 mg a day with refusal to alter this regimen secondary to lability of tolerance with no current PCP reportedly because she does not want have to wear a mask prompting eventual ED presentation secondary to difficulty sleeping. #1. Acute Decompensated Systolic CHF, Ischemic Cardiomyopathy with concurrent Acute NSTEMI: Patient administered IV lasix in the ED, given worsened respiratory status admitted to PCU and started on BIPAP with improvement with eventual transition to room air, maintained on cardiac telemetry, serial cardiac enzymes with initial 106-> 1132->3359 with overnight initiation of heparin drip, patient initiated on an maintained on IV bumex diuresis with oral metolazone, monitor I/Os, maintained on intake restriction, continue medical therapy, TSH 0.73, magnesium 1.9. Recent ECHO noted dilated LV, LV systolic function severely decreased with EF 16%, RV normal, RV systolic function normal, dilated LA, RVSP underestimated likely secondary to a weaker incomplete tricuspid regurgitation signal with 38 mmHg consistent with mild pulmonary hypertension. Cardiology consulted and evaluated patient in the ED. 01/13/22 de-escalated per Cardiology agreement to DVT prophylaxis lovenox. If continued improvement would plan discharge 01/14/22 on Bumex 2 mg daily, as needed metolazone given patient concerns with usage if weight gain of 2 pounds with plan follow-up with cardiology on 02/21/2022 with Mirta Singh. #2. CAD, nonobstructive per patient report, ischemic cardiomyopathy w/ as noted #1 Acute NSTEMI: Patient denies any PCI intervention, continued aspirin, Coreg, not on FLAVIO inhibitor/ARB secondary to intolerance and unable to tolerate statins as well. Patient serial cardiac enzymes with initial 106-> 1132->3359 with overnight initiation of heparin drip with decision for continued medical management based on prior catheterization per discussion with Cardiology. 01/13/22 transitioned to DVT prophylaxis lovenox from heparin drip. #3. Hypertension: Continue home regimen including IV Bumex as well as metolazone, spironolactone, Coreg, isosorbide, hydralazine with further adjustments per cardiology discretion, PRN hydralazine. Upon discharge plan transition to bumex 2 mg daily with PRN metolazone if weight increase >2 lb. #4. Hyperlipidemia: Not on statin therapy with noted adverse reaction, FLP obtained. #5. Anxiety and depression: We will continue patient home sertraline regimen. #6. Former tobacco use: Encourage continued tobacco cessation. #7. DVT prophylaxis: SCDs, Lovenox. #8. CODE status: Patient CHING is her brother and son and living will is currently in place. DNR-CCA, no intubation status. Charges/Coding Visit Charges Inpatient E&M: 76749 Subs Hosp L2
[2022-01-13] MEDS: Potassium Chloride Oral Tablet 20 MEQ 40 MEQ PO (06:57)
[2022-01-13 09:01] LABS: Absolute Neutrophil Count 7.2 X10^3/uL (2.0-7.7); Basophil# 0.07 X10^3/uL; Basophil% 0.8 % (0-1); Eosinophil# 0.04 X10^3/uL; Eosinophils% 0.4 % (0-5); Hematocrit 43.2 % (37-47); Hemoglobin 15.2 g/dL (12.0-15.0); Lymphocyte % 12.1 % (19-41); Mean Corp Hgb Conc 35.2 g/dL (32-36); Mean Corpuscular Hgb 31.9 pg (27.0-32.0); Mean Corpuscular Volume 90.8 fL (81-99); Mean Platelet Vol. 10.9 fl (6.2-12.0); Monocyte# 0.68 X10^3/uL; Monocyte% 7.5 % (0-10); NRBC Flagged by Analyzer 0 % (0-5); Neutrophil % 78.9 % (47-70); Platelet Count 230 K/mm3 (150-450); RBC Distribution Width CV 13.8 % (11.6-14.6); RBC Distribution Width SD 45.9 fl (35.1-43.9); Red Blood Count 4.76 M/mm3 (4.2-5.4); White Blood Count 9.1 K/mm3 (4.4-11.0)
[2022-01-13 09:11] LABS: Partial Thromboplast Time 69.5 Seconds (24.1-36.2)
[2022-01-13 09:51] LABS: ALB/GLOB Ratio 1.1 RATIO (0.9-2.4); AST(SGOT) 59 U/L (15-37); Alanine Aminotransfer ALT/SGPT 68 U/L (13-56); Albumin, Serum 3.5 g/dL (3.2-5.0); Alkaline Phosphatase 119 U/L (45-117); Anion Gap 6 (5-15); BUN 19 mg/dL (7-18); BUN/Creat Ratio 22.7 RATIO (10-20); Calcium,Total 9.1 mg/dL (8.5-10.1); Chloride 97 mmol/L (98-107); Cholesterol 163 mg/dL (200); Creatinine, Serum 0.84 mg/dL (0.55-1.02); EST Glomerular Filtration Rate 71 mL/min (>60); Est Glom Filt Rate - Afr Amer 86 mL/min (>60); Estimated Creatinine Clearance 46.35 ml/min; Globulin 3.3 g/dL (2.2-4.2); Glucose 85 mg/dL (74-106); High Density Lipoprotein 62 mg/dL; Potassium 3.3 mmol/L (3.5-5.1); Protein, Total 6.8 g/dL (6.4-8.2); Sodium Level 137 mmol/L (136-145); T4 Free Direct 1.82 ng/dL (0.76-1.46); Thyroid Stim Hormone (TSH) 0.73 uIU/mL (0.358-3.74); Triglycerides 63 mg/dL; Very Low Density Lipoprotein 13 mg/dL (5-40)
--- NOTE | 2022-01-13 09:54 | CASEMGMT ---
Addendum entered by Ita Escoto 01/13/22 15:57: Pt is on room air and states no concerns with going home at time of d/c. Palma MARIE CM Original Note: Per pt, she does not have home oxygen or cpap/bipap. Pt was seen at [facility] in October and did not qualify for home oxygen at that time. Pt is currently on room air. Palma MARIE CM
--- NOTE | 2022-01-13 10:17 | PN.CARD_ITS ---
Subjective Subjective Pt is feeling better than yesterday. She feels that her breathing has improved as well as her swelling in her legs. She has not had any chest pain. Objective Data Vital Signs: Vital Signs Temp Pulse Resp BP Pulse Ox 97.7 F L 82 18 120/77 90 01/13/22 04:46 01/13/22 08:00 01/13/22 04:46 01/13/22 06:13 01/13/22 07:32 Oxygen Flow Rate (L/min) 1 Oxygen Delivery Method Room Air Weight: 123 lb 0.287 oz Body Mass Index (BMI) 23.2 Intake & Output: Intake and Output for Last 24 Hours 01/11/22 01/12/22 01/13/22 23:59 23:59 23:59 Intake Total 600 / 600 Output Total 2500 / 2500 Balance -1900 / -1900 Lab / Micro Data Result Diagrams: 01/13/22 08:45 01/13/22 08:45 Labs: Laboratory Results - last 24 hr 01/12/22 13:00: WBC 7.0, RBC 4.57, Hgb 14.1, Hct 42.9, MCV 93.9, MCH 30.9, MCHC 32.9, RDW Std Deviation 49.1 H, RDW Coeff of Toby 14.3, Plt Count 273, MPV 10.2, Immature Gran % (Auto) 0.300, Neut % (Auto) 79.6 H, Lymph % (Auto) 11.0 L, [place] % (Auto) 7.5, Eos % (Auto) 0.7, Baso % (Auto) 0.9, Absolute Neuts (auto) 5.6, Absolute Lymphs (auto) 0.77 L, Nucleated RBC % 0 01/12/22 13:00: Sodium 137, Potassium 3.8, Chloride 100, Carbon Dioxide 32.0, Anion Gap 5, BUN 20 H, Creatinine 0.79, Estim Creat Clear Calc 38.94, Est GFR (MDRD) Af Amer 92, Est GFR (MDRD) Non-Af 76, BUN/Creatinine Ratio 25.2 H, Glucose 101, Calcium 9.2 01/12/22 13:00: B-Natriuretic Peptide 3584.3 H 01/12/22 13:00: Magnesium 2.2 01/12/22 18:23: Troponin I High Sens 106 H 01/12/22 20:53: Troponin I High Sens 1132 H* 01/13/22 00:22: Troponin I High Sens 3359 H* 01/13/22 00:22: Sodium 139, Potassium 3.1 L, Chloride 97 L, Carbon Dioxide 34.0 H, Anion Gap 8, BUN 20 H, Creatinine 0.90, Estim Creat Clear Calc 43.26, Est GFR (MDRD) Af Amer 79, Est GFR (MDRD) Non-Af 65, BUN/Creatinine Ratio 22.1 H, Glucose 85, Calcium 9.0, Magnesium 1.9 01/13/22 00:22: APTT 30.9 01/13/22 08:45: WBC 9.1, RBC 4.76, Hgb 15.2 H, Hct 43.2, MCV 90.8, MCH 31.9, MCHC 35.2 D, RDW Std Deviation 45.9 H, RDW Coeff of Toby 13.8, Plt Count 230, MPV 10.9, Immature Gran % (Auto) 0.300, Neut % (Auto) 78.9 H, Lymph % (Auto) 12.1 L, [place] % (Auto) 7.5, Eos % (Auto) 0.4, Baso % (Auto) 0.8, Absolute Neuts (auto) 7.2, Absolute Lymphs (auto) 1.10, Nucleated RBC % 0 01/13/22 08:45: Sodium 137, Potassium 3.3 L, Chloride 97 L, Carbon Dioxide 34.0 H, Anion Gap 6, BUN 19 H, Creatinine 0.84, Estim Creat Clear Calc 46.35, Est GFR (MDRD) Af Amer 86, Est GFR (MDRD) Non-Af 71, BUN/Creatinine Ratio 22.7 H, Glucose 85, Calcium 9.1, Total Bilirubin 1.40 H, AST 59 H, ALT 68 H, Alkaline Phosphatase 119 H, Total Protein 6.8, Albumin 3.5, Globulin 3.3, Albumin/Globulin Ratio 1.1, Triglycerides 63, Cholesterol 163, LDL Cholesterol 88, VLDL Cholesterol 13, HDL Cholesterol 62, TSH 0.73, Free T4 1.82 H 01/13/22 08:45: APTT 69.5 H Cardiology Labs/Tests 01/12/22 13:00: WBC 7.0, RBC 4.57, Hgb 14.1, Hct 42.9, MCV 93.9, MCH 30.9, MCHC 32.9, Plt Count 273, MPV 10.2, Immature Gran % (Auto) 0.300, Neut % (Auto) 79.6 H, Lymph % (Auto) 11.0 L, [place] % (Auto) 7.5, Eos % (Auto) 0.7, Baso % (Auto) 0.9, Absolute Neuts (auto) 5.6, Nucleated RBC % 0 01/12/22 13:00: Sodium 137, Potassium 3.8, Chloride 100, Carbon Dioxide 32.0, Anion Gap 5, BUN 20 H, Creatinine 0.79, Est GFR (MDRD) Af Amer 92, Est GFR (MDRD) Non-Af 76, BUN/Creatinine Ratio 25.2 H, Glucose 101, Calcium 9.2 01/12/22 13:00: B-Natriuretic Peptide 3584.3 H 01/12/22 13:00: Magnesium 2.2 01/13/22 00:22: Sodium 139, Potassium 3.1 L, Chloride 97 L, Carbon Dioxide 34.0 H, Anion Gap 8, BUN 20 H, Creatinine 0.90, Est GFR (MDRD) Af Amer 79, Est GFR (MDRD) Non-Af 65, BUN/Creatinine Ratio 22.1 H, Glucose 85, Calcium 9.0, Magnesium 1.9 01/13/22 00:22: APTT 30.9 01/13/22 08:45: WBC 9.1, RBC 4.76, Hgb 15.2 H, Hct 43.2, MCV 90.8, MCH 31.9, MCHC 35.2 D, Plt Count 230, MPV 10.9, Immature Gran % (Auto) 0.300, Neut % (Auto) 78.9 H, Lymph % (Auto) 12.1 L, [place] % (Auto) 7.5, Eos % (Auto) 0.4, Baso % (Auto) 0.8, Absolute Neuts (auto) 7.2, Nucleated RBC % 0 01/13/22 08:45: Sodium 137, Potassium 3.3 L, Chloride 97 L, Carbon Dioxide 34.0 H, Anion Gap 6, BUN 19 H, Creatinine 0.84, Est GFR (MDRD) Af Amer 86, Est GFR (MDRD) Non-Af 71, BUN/Creatinine Ratio 22.7 H, Glucose 85, Calcium 9.1, Total Bilirubin 1.40 H, Triglycerides 63, Cholesterol 163, LDL Cholesterol 88, VLDL Cholesterol 13, HDL Cholesterol 62 01/13/22 08:45: APTT 69.5 H Radiography Diagnostic Testing: Radiology Impression Chest X-Ray 01/12/22 13:08 IMPRESSION: Small bilateral pleural effusions left greater than right with bibasilar atelectasis superimposed on a mild degree of CHF. Electronically Signed: Red Abreu MD at 13:39 EDT , Physical Exam Const alert and oriented x3 General Appearance: frail Nutritional Appearance: thin HEENT normocephalic, head/scalp atraumatic, hearing grossly normal bilaterally, external ears normal, TM's normal bilaterally and nasal mucous membranes and turbinates normal Eyes PERRL, EOMs intact bilaterally, conjunctivae normal and no scleral icterus Neck General: JVD Resp no use of accessory muscles Auscultation: diminished lung sounds bilateral (with some crackles bibasilar) Cardio Rate: tachycardic Heart Sounds: S1 normal and S2 normal; Negative for click, gallop, murmur or rub GI normal to inspection, nondistended, normoactive bowel sounds, soft to palpation, non-tender and non-distended Extremity Extremity Narrative: +1 edema Neuro oriented x3, CN's II-XII intact bilaterally, moves all extremities and no focal motor deficits Assessment & Plan Assessment/Plan (1) CHF (congestive heart failure), NYHA class IV: (2) Presence of biventricular automatic implantable cardioverter defibrillator: (3) Acute on chronic systolic and diastolic heart failure, NYHA class 4: (4) Non-ST elevation (NSTEMI) myocardial infarction: PLAN: * It is noted that pts troponin significant elevated. Last year she was evaluated for her significant CAD, it was felt that she was not a candidate for bypass surgery or a candidate for LVAD therapy. Conservative medical management was recommended. This again was discussed with her. Did discuss adding Plavix for maximum medical therapy. Pt would not like to resume this. She is concerned about bleeding risks. This was again explained to her that it would be of benefit to her. She continues to decline. Will Continue with her ASA, Coreg, Hydralazine, Isosorbide and spirolactone. She has been intolerant to statins in the past as well as FLAVIO/ARB. * Will continue will decrease Bumex to once a day, will switch over to PO. If she is stable feel that she could be d/c home tomorrow. Would like to send home on Bumex 2 mg daily. Concerned with her going home on metolazone daily, would like for her to have this as needed. She was instructed that she can use this as needed if the Bumex is not working. She will repeat her BMP next week and call the office with an update. If her weights are stable and she is feeling okay, she would like to use the bumex as needed for a weight gain of 2 lbs. Agreeable with this. She has an appt with me on 02/21/22, she will keep this appt. * Pt is on palliative care for her CHF, do not feel that we need to obtain any additional cardiac testing at this time. Reviewed testing from 2020. * Bp stable today, will monitor. Charges/Coding Visit Charges Inpatient E&M: 38618 Subs Hosp L2
[2022-01-13] MEDS: Isosorbide DN 10 MG Tablet 5 MG PO ×2 (11:09→13:31)
[2022-01-13] MEDS: Aspirin E.C. 81 MG Tablet PO (11:09)
[2022-01-13] MEDS: Carvedilol 3.125 MG TABLET PO ×2 (11:10→22:28)
[2022-01-13] MEDS: metOLazone 5 MG Tablet PO (11:10)
[2022-01-13] MEDS: Bumetanide 1 MG/4 ML Vial 2 MG IV ×2 (11:11→17:37)
[2022-01-13] MEDS: Spironolactone 25 MG Tablet 12.5 MG PO (11:15)
[2022-01-13] MEDS: 0.9% Saline Lock 10 ML Syringe IV ×2 (11:17→17:37)
[2022-01-13 14:57] LABS: Partial Thromboplast Time 49.9 Seconds (24.1-36.2)
[2022-01-13] MEDS: Sertraline 50 MG Tablet 25 MG PO (22:28)
[2022-01-14] VITALS (11 sets, daily range): BP systolic 102–110; BP diastolic 58–80; PULSE 74–90; RESP 16–20; TEMP 36.2–36.7; O2SAT 93–97
[2022-01-14 06:37] LABS: Absolute Lymphocyte Count 1.57 X10^3/uL (0.83-4.51); Absolute Neutrophil Count 4.7 X10^3/uL (2.0-7.7); Basophil# 0.07 X10^3/uL; Eosinophil# 0.14 X10^3/uL; Eosinophils% 1.9 % (0-5); Hematocrit 40.6 % (37-47); Hemoglobin 14.1 g/dL (12.0-15.0); Lymphocyte # 1.57 X10^3/ul (0.83-4.51); Lymphocyte % 21.5 % (19-41); Mean Corp Hgb Conc 34.7 g/dL (32-36); Mean Corpuscular Hgb 31.3 pg (27.0-32.0); Mean Corpuscular Volume 90.2 fL (81-99); Mean Platelet Vol. 10.4 fl (6.2-12.0); Monocyte# 0.81 X10^3/uL; Monocyte% 11.1 % (0-10); NRBC Flagged by Analyzer 0 % (0-5); Neutrophil # 4.69 X10^3/uL (2.7-7.7); Neutrophil % 64.2 % (47-70); Platelet Count 235 K/mm3 (150-450); RBC Distribution Width CV 13.9 % (11.6-14.6); RBC Distribution Width SD 45.9 fl (35.1-43.9); White Blood Count 7.3 K/mm3 (4.4-11.0)
[2022-01-14] MEDS: hydrALAZINE 10 MG Tablet PO (06:38)
[2022-01-14] MEDS: Enoxaparin 40 MG/0.4 ML Syringe SC (06:39)
[2022-01-14 07:22] LABS: AST(SGOT) 31 U/L (15-37); Alanine Aminotransfer ALT/SGPT 53 U/L (13-56); Albumin, Serum 3.1 g/dL (3.2-5.0); Alkaline Phosphatase 116 U/L (45-117); Anion Gap 6 (5-15); BUN 31 mg/dL (7-18); BUN/Creat Ratio 32.7 RATIO (10-20); Calcium,Total 8.7 mg/dL (8.5-10.1); Chloride 93 mmol/L (98-107); Creatinine, Serum 0.95 mg/dL (0.55-1.02); EST Glomerular Filtration Rate 62 mL/min (>60); Est Glom Filt Rate - Afr Amer 75 mL/min (>60); Estimated Creatinine Clearance 40.99 ml/min; Glucose 112 mg/dL (74-106); Potassium 2.7 mmol/L (3.5-5.1); Protein, Total 6.1 g/dL (6.4-8.2); Sodium Level 137 mmol/L (136-145)
[2022-01-14] MEDS: Potassium Chloride Oral Tablet 20 MEQ 60 MEQ PO (08:38)
[2022-01-14] MEDS: Isosorbide DN 10 MG Tablet 5 MG PO (08:39)
[2022-01-14] MEDS: Carvedilol 3.125 MG TABLET PO ×2 (08:39→22:43)
[2022-01-14] MEDS: Aspirin E.C. 81 MG Tablet PO (08:40)
[2022-01-14] MEDS: Spironolactone 25 MG Tablet 12.5 MG PO (08:40)
[2022-01-14] MEDS: metOLazone 5 MG Tablet PO (08:41)
--- NOTE | 2022-01-14 10:25 | PCM.DC ---
Discharge Instructions Diet Discharge Diet: Low fat / Low cholesterol Activity Discharge Activity: - (Continue mild to moderate activity until re-evaluation per Cardiology at follow-up visit.) May resume sexual activity in: 10-14 days Dressing / Incision Call your doctor if your incision/area has: Continuous Slow Oozing, Sudden Increased Bleeding, Increased Pain/ Swelling, Increased Redness, Foul Smelling Discharge and Swelling at the incision site Call your doctor if you observe: Fever of 101 or Higher, Inability to urinate, Shortness of breath, Swelling in the ankles, Chest pain, Increased palpitations (irregular heartbeat), Uncontrolled pain and - (IF you have > 2 lb weight gain and take your metolazone without weight reduction or if your weight continues to rise immediately contact your Cardiology office.) Follow Up Care Test Results: Test results from this visit will be discussed in further detail at your follow-up appointment, if applicable. Discharge Plan Admission Admit Date/Time: 01/12/22 16:21 Attending Provider: Salina Wang Primary Care Provider: Care Physician,No Primary Consulting Providers: Kelly Roberts Instructions Patient Instructions: Coping with Heart Failure, ED Peripheral Edema, Bilateral Additional Instructions / Restrictions: Per Cardiology please continue your bumex regimen daily with extremity elevation above your heart while seated and in bed as able with usage of ALISHA hose. Please continue daily weight log. Please monitor your weights daily and as recommended per Cardiology if weight gain > 2 lb please take your as needed metolazone dose and repeat check your weight in 24 hours. If you continue to gain weight please notify your cardiology office immediately. Please have repeat basic metabolic panel check at follow-up with your primary care within 3-5 days given recent alteration to your home diuretic regimen. We have started some scheduled supplementation but pending trending this may need to be altered or discontinued. Discharge Orders/Prescriptions Prescriptions: New (DARIA) T.E.D. Knee [id number] Misc See Rx Instructions .ROUTE .MEDSUPPLY Qty: 12 RF: 0 metolazone 5 mg Tablet 5 mg PO DAILY PRN PRN (Reason: Weight gain > 2lb) 30 Days Qty: 30 RF: 0 bumetanide 2 mg tablet 2 mg PO DAILY 30 Days Qty: 30 RF: 0 potassium chloride [Klor-Con M20] 20 mEq Tablet,Er Particles/Crystals 40 meq PO BIDCM 30 Days Qty: 120 RF: 0 Continued acetaminophen 325 mg tablet 325 mg PO ONCE PRN (Reason: Pain) RF: 0 isosorbide dinitrate 5 mg tablet 5 mg PO TID RF: 0 multivitamin Tablet 1 tab PO DAILY RF: 0 hydralazine 10 mg Tablet 10 mg PO TID RF: 0 spironolactone 25 mg tablet 12.5 mg PO DAILY RF: 0 aspirin 81 MG tablet,delayed release (DR/EC) 81 mg PO DAILY RF: 0 Hold Instructions: Bruising carvedilol 3.125 mg tablet 3.125 mg PO BID RF: 0 ondansetron 4 mg tablet,disintegrating 4 mg PO Q6H PRN (Reason: nausea and vomiting) Qty: 10 RF: 0 guaifenesin [Mucinex] 600 mg Tablet Extended Release 12hr 600 mg PO PRN PRN (Reason: Sinus Symptoms) RF: 0 spironolactone 25 mg Tablet 12.5 mg PO DAILY RF: 0 tizanidine 2 mg Capsule 2 mg PO BID PRN PRN (Reason: Muscle Pain) RF: 0 sertraline 50 mg tablet 25 mg PO QHS RF: 0 Discontinued furosemide [Lasix] 20 mg tablet 20 mg PO DAILY PRN (Reason: Weight Gain) Qty: 0 RF: 0 Referrals / Follow Up: Anu Canela MD [STAFF PHYSICIAN] - (Follow-up within 3-5 days to review admission. Please have metabolic panel at follow-up with primary care given new medication changes.) Mirta Singh PA [PHYSICIAN SOFTWARE APPLICATIONS DEVELOPER] - (Keep appt previously arranged for 02/21/22; however, if concerns or issues with electrolytes following primary care repeat basic metabolic panel please call office for earlier follow-up.) Disposition Disposition (needs filled in before D/C Order can be placed): Home, Self Care
[2022-01-14 10:39] LABS: Anion Gap 7 (5-15); BUN 26 mg/dL (7-18); BUN/Creat Ratio 26.6 RATIO (10-20); Calcium,Total 8.8 mg/dL (8.5-10.1); Chloride 92 mmol/L (98-107); Creatinine, Serum 0.98 mg/dL (0.55-1.02); EST Glomerular Filtration Rate 60 mL/min (>60); Est Glom Filt Rate - Afr Amer 72 mL/min (>60); Estimated Creatinine Clearance 39.73 ml/min; Glucose 143 mg/dL (74-106); Potassium 3.1 mmol/L (3.5-5.1); Sodium Level 137 mmol/L (136-145)
--- NOTE | 2022-01-14 10:44 | DS.PCM_ITS ---
Providers Date of Admission: 01/12/22 Primary Care Physician: Kalpana Primary Care Phys Consultations 01/12/22 17:44 Consult: Cardiology Routine Consulting Provider: Kelly Roberts Reason for Consult: CHF EMERGENT Consult: No MD Notified: Yes Date Notified: 01/12/22 Time Notified: 17:42 Method of Notification: md to md in ed Reason For Visit: CHF EXACERBATION Diagnosis Discharge Diagnosis (1) CHF exacerbation: Status: Chronic Code(s): I50.9 - Heart failure, unspecified Qualifiers: Heart failure type: systolic Qualified Code(s): I50.23 - Acute on chronic systolic (congestive) heart failure Medications at Discharge Home Medications hydralazine 10 mg PO TID 02/28/21 acetaminophen 325 mg tablet 325 mg PO ONCE PRN 04/21/21 isosorbide dinitrate 5 mg tablet 5 mg PO TID 04/21/21 spironolactone 12.5 mg PO DAILY 04/27/21 aspirin 81 mg PO DAILY 06/12/21 carvedilol 3.125 mg PO BID 06/12/21 ondansetron 4 mg PO Q6H PRN #10 tab 08/16/21 guaifenesin [Mucinex] 600 mg PO PRN PRN 10/27/21 multivitamin 1 tab PO DAILY 11/14/21 compr.stocking,knee,long,small [T.E.D. Knee [id number]] #12 ea 01/12/22 sertraline 25 mg PO QHS 01/12/22 spironolactone 12.5 mg PO DAILY 01/12/22 tizanidine 2 mg PO BID PRN PRN 01/12/22 bumetanide 2 mg PO DAILY 30 Days #30 tab 01/14/22 metolazone 5 mg PO DAILY PRN PRN 30 Days #30 tab 01/14/22 potassium chloride [Klor-Con M20] 40 meq PO BIDCM 30 Days #120 tab 01/14/22 Hospital Course Operations None Procedures 2-D Echocardiogram and EKG Summary of Care Provided Minutes Spent on Discharge: 35 Hospital Course: Discharge Diagnoses: #1. Acute Hypoxia secondary to Acute Decompensated Systolic CHF, Ischemic Cardiomyopathy with concurrent Acute NSTEMI #2. CAD, nonobstructive per patient report, ischemic cardiomyopathy w/ as noted #1 Acute NSTEMI #3. Hypertension #4. Hyperlipidemia #5. Anxiety and depression #6. Former tobacco use Discharge Summary: The patient is a 71 y/o F w/ PMHx: Anxiety and Depression, CAD, Ischemic Cardiomyopathy, Chronic Systolic CHF, s/p AICD status, HTN, HLD, Former tobacco use who presented to the [facility] ED on 01/12/22 with history of several weeks of worsening lower extremity swelling more progressive over the last week currently on Lasix 20 mg a day with refusal to alter this regimen secondary to lability of tolerance with no current PCP reportedly because she does not want have to wear a mask prompting eventual ED presentation secondary to difficulty sleeping. Patient administered IV lasix in the ED, given worsened respiratory status admitted to PCU and started on BIPAP with improvement with eventual transition to room air, maintained on cardiac telemetry, serial cardiac enzymes with initial 106-> 1132->3359 with overnight initiation of heparin drip, patient initiated on an maintained on IV bumex diuresis with oral metolazone, monitored I/Os, maintained on intake restriction, TSH 0.73, magnesium 1.9. Recent ECHO noted dilated LV, LV systolic function severely decreased with EF 16%, RV normal, RV systolic function normal, dilated LA, RVSP underestimated likely secondary to a weaker incomplete tricuspid regurgitation signal with 38 mmHg consistent with mild pulmonary hypertension. Cardiology consulted and evaluated patient in the ED. 01/13/22 de-escalated per Cardiology agreement to DVT prophylaxis lovenox. Given ongoing clinical improvement with resolution of acute CHF exacerbation, per cardiology clearance 01/14/22 transition to Bumex 2 mg daily, as needed metolazone given patient concerns with usage if weight gain of 2 pounds with plan follow-up with cardiology on 02/21/2022 with Mirta Singh. Given electrolyte disturbances potassium was supplemented during admission and chronic regimen initiated at discharge with strong request for follow-up BMP with PCP at follow-up with further alterations as needed or discontinuation if appropriate. Discussed wrongly if weight gain was greater than 2 pounds and Bumex did not correct this by 24 to 48 hours or any worsening edema or pulmonary symptoms immediate call necessary to the cardiology office or if appropriate ED evaluation. Discharge Time: > 35 Minutes DAY OF DISCHARGE PROGRESS NOTE: Subjective: Patient without acute event overnight per self and nursing report. Patient notes feeling improved and requiring no oxygen as well as resolution of her prior swelling. Discussed plan of discharge at length which included contin uation of Bumex and oral dose form daily with as needed metolazone only if weight gain above 2 pounds. Given electrolyte disturbances from IV Bumex usage patient was supplemented potassium and will per discussion with her continue potassium at discharge but emphasized strongly that she needs to have repeat basic metabolic panel as requested also per cardiology with her primary care physician at follow-up and that this regimen may need to be discontinued or altered depending on those levels. Patient denies fever, chills, nausea, emesis, abdominal pain, chest pain or dyspnea. Patient agreeable to discharge to home with follow-up as noted. Patient will be discharged with follow-up with primary care physician within 3-5 days in addition to cardiology as previously requested unless any issues arise. Objective: T 97.9, heart rate 75, BP 109/79, respiratory rate 20, 97% on room air. Physical Examination: General: Awake, alert, oriented x 3 and cooperative, seated upright in the PCU bed, comfortable appearing, no acute distress. Skin: Normal color, normal turgor, no icterus, no cyanosis. HEENT: AT/NC, EOMI, PERRLA, MMM. Lungs: Diminished bases, improved air movement, improved effort, no rales, rhonchi or wheezing, normalized effort. Heart: Regular rate with regular rhythm/paced; no gallop, rub audible. Abdomen: Soft, NTTP, ND, normal BS. Extremities: No cyanosis, no clubbing, resolved bilateral lower extremity swelling. Neurological: Patient awake, alert, oriented as noted, cognitive function intact; pupils equally reactive to light and accommodation, cranial nerves II- XII grossly normal, moving all 4 extremities, no focal deficits, strength improved, mildly global decreased. Psychiatric: Affect appears calm, no acute evidence of depressive or anxiety feelings. Assessment and Plan: Please see hospital summary above. Weight / BMI Weight Weight: 112 lb 14.027 oz Body Mass Index (BMI) 23.2 ABG / Lab / Microbiology Data Result Diagrams: 01/14/22 06:18 01/14/22 09:57 Laboratory: Laboratory Results - last 24 hr 01/13/22 14:23: APTT 49.9 H 01/14/22 06:18: WBC 7.3, RBC 4.50, Hgb 14.1, Hct 40.6, MCV 90.2, MCH 31.3, MCHC 34.7, RDW Std Deviation 45.9 H, RDW Coeff of Toby 13.9, Plt Count 235, MPV 10.4, Immature Gran % (Auto) 0.300, Neut % (Auto) 64.2, Lymph % (Auto) 21.5, Churchill % (Auto) 11.1 H, Eos % (Auto) 1.9, Baso % (Auto) 1.0, Absolute Neuts (auto) 4.7, Absolute Lymphs (auto) 1.57, Nucleated RBC % 0 01/14/22 06:18: Sodium 137, Potassium 2.7 L*, Chloride 93 L, Carbon Dioxide 38.0 H, Anion Gap 6, BUN 31 H, Creatinine 0.95, Estim Creat Clear Calc 40.99, Est GFR (MDRD) Af Amer 75, Est GFR (MDRD) Non-Af 62, BUN/Creatinine Ratio 32.7 H, Glucose 112 H, Calcium 8.7, Total Bilirubin 0.70, AST 31, ALT 53, Alkaline Phosphatase 116, Total Protein 6.1 L, Albumin 3.1 L, Globulin 3.0, Albumin/Globulin Ratio 1.0 01/14/22 09:57: Sodium 137, Potassium 3.1 L, Chloride 92 L, Carbon Dioxide 38.0 H, Anion Gap 7, BUN 26 H, Creatinine 0.98, Estim Creat Clear Calc 39.73, Est GFR (MDRD) Af Amer 72, Est GFR (MDRD) Non-Af 60, BUN/Creatinine Ratio 26.6 H, Glucose 143 H, Calcium 8.8 Radiography Diagnostic Testing: Radiology Impression Chest X-Ray 01/13/22 05:55 IMPRESSION: Since prior study, there has been a progression of the small bilateral pleural effusions with bibasilar atelectasis slightly worse at the left lung base superimposed on CHF. Electronically Signed: Red Abreu MD at 14:09 EDT , Echocardiogram 01/13/22 06:20 Interpretation Summary The estimated ejection fraction is 10-15 %. Severe LV systolic Dysfunction with global LV hypokinesia Moderate MR ICD leads noted on R.side Small pericardial effuion with no haemodynmic effect No significant changes from previous Echo january 2021 Ordering Physician: Salina Wang Performed By: Kayla Tuttle RDCS D/C Instructions Discharge Diet: Low fat / Low cholesterol May resume sexual activity in: 10-14 days Call your doctor if your incision/area has: Continuous Slow Oozing, Sudden Increased Bleeding, Increased Pain/ Swelling, Increased Redness, Foul Smelling Discharge and Swelling at the incision site Call your doctor if you observe: Fever of 101 or Higher, Inability to urinate, Shortness of breath, Swelling in the ankles, Chest pain, Increased palpitations (irregular heartbeat), Uncontrolled pain and - (IF you have > 2 lb weight gain and take your metolazone without weight reduction or if your weight continues to rise immediately contact your Cardiology office.) Meaningful Use Info Meaningful Use Diagnoses (Choose all that apply): AMI and CHF AMI/Post PCI/Angioplasty Aspirin given w/in 24hrs of arrival?: Yes ASA at discharge?: Yes Statins at discharge?: Yes Flavio/ARB at discharge?: No Reason Flavio/ARB not ordered:: Allergy Beta Erin at discharge?: Yes Done w/ Acute GA measure.: Yes Documented LVEF (%): 16 CHF FLAVIO/ARB ordered at discharge?: No Reason FLAVIO/ARB not ordered?: Allergy Documented LVEF (%): 16 Discharge Plan Admission Admit Date/Time: 01/12/22 16:21 Attending Provider: Salina Wang Primary Care Provider: Care Physician,No Primary Consulting Providers: Kelly Roberts Instructions Patient Instructions: Coping with Heart Failure, ED Peripheral Edema, Bilateral Additional Instructions / Restrictions: Per Cardiology please continue your bumex regimen daily with extremity elevation above your heart while seated and in bed as able with usage of ALISHA hose. Please continue daily weight log. Please monitor your weights daily and as recommended per Cardiology if weight gain > 2 lb please take your as needed metolazone dose and repeat check your weight in 24 hours. If you continue to gain weight please notify your cardiology office immediately. Please have repeat basic metabolic panel check at follow-up with your primary care within 3-5 days given recent alteration to your home diuretic regimen. We have started some scheduled supplementation but pending trending this may need to be altered or discontinued. Discharge Orders/Prescriptions Prescriptions: New (DARIA) Clau Knee Ifhnyr-I-Oyah Misc See Rx Instructions .ROUTE .MEDSUPPLY Qty: 12 RF: 0 metolazone 5 mg Tablet 5 mg PO DAILY PRN PRN (Reason: Weight gain > 2lb) 30 Days Qty: 30 RF: 0 bumetanide 2 mg tablet 2 mg PO DAILY 30 Days Qty: 30 RF: 0 potassium chloride [Klor-Con M20] 20 mEq Tablet,Er Particles/Crystals 40 meq PO BIDCM 30 Days Qty: 120 RF: 0 Continued acetaminophen 325 mg tablet 325 mg PO ONCE PRN (Reason: Pain) RF: 0 isosorbide dinitrate 5 mg tablet 5 mg PO TID RF: 0 multivitamin Tablet 1 tab PO DAILY RF: 0 hydralazine 10 mg Tablet 10 mg PO TID RF: 0 spironolactone 25 mg tablet 12.5 mg PO DAILY RF: 0 aspirin 81 MG tablet,delayed release (DR/EC) 81 mg PO DAILY RF: 0 Hold Instructions: Bruising carvedilol 3.125 mg tablet 3.125 mg PO BID RF: 0 ondansetron 4 mg tablet,disintegrating 4 mg PO Q6H PRN (Reason: nausea and vomiting) Qty: 10 RF: 0 guaifenesin [Mucinex] 600 mg Tablet Extended Release 12hr 600 mg PO PRN PRN (Reason: Sinus Symptoms) RF: 0 spironolactone 25 mg Tablet 12.5 mg PO DAILY RF: 0 tizanidine 2 mg Capsule 2 mg PO BID PRN PRN (Reason: Muscle Pain) RF: 0 sertraline 50 mg tablet 25 mg PO QHS RF: 0 Discontinued furosemide [Lasix] 20 mg tablet 20 mg PO DAILY PRN (Reason: Weight Gain) Qty: 0 RF: 0 Referrals / Follow Up: Anu Canela MD [STAFF PHYSICIAN] - (Follow-up within 3-5 days to review admission. Please have metabolic panel at follow-up with primary care given new medication changes.) Mirta Singh, PA [PHYSICIAN CHINESE INSTRUCTOR] - (Keep appt previously arranged for 02/21/22; however, if concerns or issues with electrolytes following primary care repeat basic metabolic panel please call office for earlier follow- up.) Disposition Disposition (needs filled in before D/C Order can be placed): Home, Self Care Charges/Coding Visit Charges Inpatient E&M: 79574 Disch Hosp
[2022-01-14] MEDS: Potassium Chloride Oral Tablet 20 MEQ PO ×2 (11:32→17:42)
--- NOTE | 2022-01-14 13:51 | PN.HOSP_ITS ---
Subjective Subjective Patient without any acute vents overnight per self and per nursing report. This morning patient notes feeling well and denies any complaints and is amenable to discharge to home. She does have low blood pressures normally secondary to her regimen but patient did have low blood pressure this morning and declined some of her medications which is a chronic component of her personal health choices however following discussions with director of curriculum she decided to remain 1 more day. Patient denies fevers, chills, nausea, emesis, abdominal pain, chest pain or dyspnea. Objective Data Objective Data Vital Signs: Vital Signs Temp Pulse Resp BP Pulse Ox 97.2 F L 78 16 102/58 L 95 01/14/22 11:28 01/14/22 11:28 01/14/22 11:28 01/14/22 11:28 01/14/22 11:28 Oxygen Flow Rate (L/min) 2 Oxygen Delivery Method Room Air Weight: 112 lb 14.027 oz Body Mass Index (BMI) 23.2 Intake & Output: Intake and Output for Last 24 Hours 01/12/22 01/13/22 01/14/22 23:59 23:59 23:59 Intake Total 1495.87 / 1495.87 340 / 340 Output Total 7600 / 7600 800 / 800 Balance -6104.13 / -6104.13 -460 / -460 Lab / Micro Data Result Diagrams: 01/14/22 06:18 01/14/22 09:57 Labs: Laboratory Results - last 24 hr 01/13/22 14:23: APTT 49.9 H 01/14/22 06:18: WBC 7.3, RBC 4.50, Hgb 14.1, Hct 40.6, MCV 90.2, MCH 31.3, MCHC 34.7, RDW Std Deviation 45.9 H, RDW Coeff of Toby 13.9, Plt Count 235, MPV 10.4, Immature Gran % (Auto) 0.300, Neut % (Auto) 64.2, Lymph % (Auto) 21.5, Stone % (Auto) 11.1 H, Eos % (Auto) 1.9, Baso % (Auto) 1.0, Absolute Neuts (auto) 4.7, Absolute Lymphs (auto) 1.57, Nucleated RBC % 0 01/14/22 06:18: Sodium 137, Potassium 2.7 L*, Chloride 93 L, Carbon Dioxide 38.0 H, Anion Gap 6, BUN 31 H, Creatinine 0.95, Estim Creat Clear Calc 40.99, Est GFR (MDRD) Af Amer 75, Est GFR (MDRD) Non-Af 62, BUN/Creatinine Ratio 32.7 H, Glucose 112 H, Calcium 8.7, Total Bilirubin 0.70, AST 31, ALT 53, Alkaline Phosphatase 116, Total Protein 6.1 L, Albumin 3.1 L, Globulin 3.0, Albumin/Globulin Ratio 1.0 01/14/22 09:57: Sodium 137, Potassium 3.1 L, Chloride 92 L, Carbon Dioxide 38.0 H, Anion Gap 7, BUN 26 H, Creatinine 0.98, Estim Creat Clear Calc 39.73, Est GFR (MDRD) Af Amer 72, Est GFR (MDRD) Non-Af 60, BUN/Creatinine Ratio 26.6 H, Glucose 143 H, Calcium 8.8 Radiography Diagnostic Testing: Radiology Impression Chest X-Ray 01/13/22 05:55 IMPRESSION: Since prior study, there has been a progression of the small bilateral pleural effusions with bibasilar atelectasis slightly worse at the left lung base superimposed on CHF. Electronically Signed: Red Abreu MD at 14:09 EDT , Echocardiogram 01/13/22 06:20 Interpretation Summary The estimated ejection fraction is 10-15 %. Severe LV systolic Dysfunction with global LV hypokinesia Moderate MR ICD leads noted on R.side Small pericardial effuion with no haemodynmic effect No significant changes from previous Echo january 2021 Ordering Physician: Salina Wang Performed By: Kayla Tuttle, RDCS Physical Exam Narrative Physical Examination: General: Awake, alert, oriented x 3 and cooperative, seated upright in the PCU bed, comfortable appearing, no acute distress. Skin: Normal color, normal turgor, no icterus, no cyanosis. HEENT: AT/NC, EOMI, PERRLA, MMM. Lungs: Diminished bases, improved air movement, improved effort, no rales, rhonchi or wheezing, normalized effort. Heart: Regular rate with regular rhythm/paced; no gallop, rub audible. Abdomen: Soft, NTTP, ND, normal BS. Extremities: No cyanosis, no clubbing, resolved bilateral lower extremity swelling. Neurological: Patient awake, alert, oriented as noted, cognitive function intact ; pupils equally reactive to light and accommodation, cranial nerves II-XII grossly normal, moving all 4 extremities, no focal deficits, strength improved, mildly global decreased. Psychiatric: Affect appears calm, no acute evidence of depressive or anxiety feelings. Assessment & Plan Assessment/Plan (1) CHF exacerbation: QUALIFIERS: Heart failure type: systolic Qualified Code(s): I50.23 - Acute on chronic systolic (congestive) heart failure PLAN: The patient is a 71 y/o F w/ PMHx: Anxiety and Depression, CAD, I schemic Cardiomyopathy, Chronic Systolic CHF, s/p AICD status, HTN, HLD, Former tobacco use who presents to the [facility] ED on 01/12/22 with history of several weeks of worsening lower extremity swelling more progressive over the last week currently on Lasix 20 mg a day with refusal to alter this regimen secondary to lability of tolerance with no current PCP reportedly because she does not want have to wear a mask prompting eventual ED presentation secondary to difficulty sleeping. #1. Acute Decompensated Systolic CHF, Ischemic Cardiomyopathy with concurrent Acute NSTEMI: Patient administered IV lasix in the ED, given worsened respiratory status admitted to PCU and started on BIPAP with improvement with eventual transition to room air, maintained on cardiac telemetry, serial cardiac enzymes with initial 106-> 1132->3359 with overnight initiation of heparin drip, patient initiated on an maintained on IV bumex diuresis with oral metolazone, monitor I/Os, maintained on intake restriction, continue medical therapy, TSH 0.73, magnesium 1.9. Recent ECHO noted dilated LV, LV systolic function severely decreased with EF 16%, RV normal, RV systolic function normal, dilated LA, RVSP underestimated likely secondary to a weaker incomplete tricuspid regurgitation signal with 38 mmHg consistent with mild pulmonary hypertension. Cardiology consulted and evaluated patient in the ED. 01/13/22 de-escalated per Cardiology agreement to DVT prophylaxis lovenox. Given improvement 01/14/2022 transition to Bumex 2 mg daily with only as needed metolazone. Patient unfortunately did have low blood pressures and was hesitant about discharge to home and per discussion with cardiology will continue and de-escalate off of her hydralazine completely and decrease her Isordil to 5 mg once daily only. We will plan reassessment in the a.m. 01/15/2022 and if blood pressures on this current regimen remain a ppropriate would plan discharge to home with continued plan of care being these regimen changes with usage of as needed metolazone given patient concerns with usage if weight gain of 2 pounds with plan follow-up with cardiology on 02/21/2022 with Mirta Singh. #2. CAD, nonobstructive per patient report, ischemic cardiomyopathy w/ as noted #1 Acute NSTEMI: Patient denies any PCI intervention, continued aspirin, Coreg, not on FLAVIO inhibitor/ARB secondary to intolerance and unable to tolerate statins as well. Patient serial cardiac enzymes with initial 106-> 1132->3359 with overnight initiation of heparin drip with decision for continued medical management based on prior catheterization per discussion with Cardiology. 01/13/22 transitioned to DVT prophylaxis lovenox from heparin drip. #3. Hypertension: Continue home regimen including transition from IV Bumex to oral, discontinuation of metolazone and usage upon discharge as needed only, continue spironolactone, Coreg, discontinued hydralazine and decrease isosorbide to 5 mg once daily only. #4. Hyperlipidemia: Not on statin therapy with noted adverse reaction, FLP obtained. #5. Anxiety and depression: We will continue patient home sertraline regimen. #6. Former tobacco use: Encourage continued tobacco cessation. #7. DVT prophylaxis: SCDs, Lovenox. #8. CODE status: Patient CHING is her brother and son and living will is currently in place. DNR-CCA, no intubation status. Charges/Coding Visit Charges Inpatient E&M: 48503 Subs Hosp L2
--- NOTE | 2022-01-14 22:35 | CPS ---
PT REFUSING BIPAP AT THIS TIME
[2022-01-14] MEDS: Sertraline 50 MG Tablet 25 MG PO (22:43)
[2022-01-14] MEDS: Acetaminophen 325 MG Tablet 650 MG PO (22:44)
[2022-01-15 02:31] VITALS: PULSE 78
[2022-01-15 04:28] VITALS: BP 108/80; PULSE 79; RESP 16; TEMP 36.4; O2SAT 96
[2022-01-15] MEDS: Enoxaparin 40 MG/0.4 ML Syringe SC (05:09)
[2022-01-15 05:44] LABS: Absolute Lymphocyte Count 1.33 X10^3/uL (0.83-4.51); Absolute Neutrophil Count 5.1 X10^3/uL (2.0-7.7); Basophil# 0.06 X10^3/uL; Basophil% 0.8 % (0-1); Eosinophil# 0.18 X10^3/uL; Eosinophils% 2.4 % (0-5); Hematocrit 40.9 % (37-47); Hemoglobin 13.8 g/dL (12.0-15.0); Lymphocyte # 1.33 X10^3/ul (0.83-4.51); Mean Corp Hgb Conc 33.7 g/dL (32-36); Mean Corpuscular Hgb 30.8 pg (27.0-32.0); Mean Corpuscular Volume 91.3 fL (81-99); Monocyte# 0.66 X10^3/uL; Monocyte% 8.9 % (0-10); NRBC Flagged by Analyzer 0 % (0-5); Neutrophil # 5.13 X10^3/uL (2.7-7.7); Neutrophil % 69.6 % (47-70); Platelet Count 243 K/mm3 (150-450); RBC Distribution Width CV 14.1 % (11.6-14.6); RBC Distribution Width SD 47.3 fl (35.1-43.9); Red Blood Count 4.48 M/mm3 (4.2-5.4); White Blood Count 7.4 K/mm3 (4.4-11.0)
[2022-01-15 06:09] LABS: AST(SGOT) 27 U/L (15-37); Alanine Aminotransfer ALT/SGPT 46 U/L (13-56); Albumin, Serum 3.2 g/dL (3.2-5.0); Alkaline Phosphatase 113 U/L (45-117); Anion Gap 4 (5-15); BUN 27 mg/dL (7-18); BUN/Creat Ratio 31.8 RATIO (10-20); Calcium,Total 8.6 mg/dL (8.5-10.1); Chloride 99 mmol/L (98-107); Creatinine, Serum 0.85 mg/dL (0.55-1.02); EST Glomerular Filtration Rate 70 mL/min (>60); Est Glom Filt Rate - Afr Amer 85 mL/min (>60); Estimated Creatinine Clearance 45.81 ml/min; Globulin 3.2 g/dL (2.2-4.2); Glucose 155 mg/dL (74-106); Potassium 3.5 mmol/L (3.5-5.1); Protein, Total 6.4 g/dL (6.4-8.2); Sodium Level 136 mmol/L (136-145)
[2022-01-15 07:03] VITALS: PULSE 83
[2022-01-15 07:46] VITALS: O2SAT 95
--- NOTE | 2022-01-15 08:37 | DCINST_ITS ---
Discharge Instructions Diet Discharge Diet: Low fat / Low cholesterol Activity May resume sexual activity in: 10-14 days Dressing / Incision Call your doctor if your incision/area has: Continuous Slow Oozing, Sudden Increased Bleeding, Increased Pain/ Swelling, Increased Redness, Foul Smelling Discharge and Swelling at the incision site Call your doctor if you observe: Fever of 101 or Higher, Inability to urinate, Shortness of breath, Swelling in the ankles, Chest pain, Increased palpitations (irregular heartbeat), Uncontrolled pain and - (IF you have > 2 lb weight gain and take your bumex 1st and no weight decrease may take the metolazone as well. If weight continues to increase, you having swelling or shortness of breath contact Cardiology immediately or present to the ED.) Follow Up Care Test Results: Test results from this visit will be discussed in further detail at your follow-up appointment, if applicable. Discharge Plan Admission Admit Date/Time: 01/12/22 16:21 Primary Reason for Your Visit: CHF exacerbation, NSTEMI Attending Provider: Salina Wang Primary Care Provider: Care Physician,No Primary Consulting Providers: Kelly Roberts Instructions Patient Instructions: Coping with Heart Failure, ED Peripheral Edema, Bilateral Additional Instructions / Restrictions: Continue bilateral lower extremity elevation above your heart while seated and in bed as able with usage of ALISHA hose. Please continue daily weight log. Please monitor your weights daily and if weight gain > 2 lb please take your as needed bumex 2 mg. We will also given you metolazone dose which may be taken also PRN if the bumex dose not help alleviate the weight gain within 48 hours. If you find it necessary to take these medications please update your Cardiology office immediately. Please have repeat basic metabolic panel check at follow-up with Cardiology. Discharge Orders/Prescriptions Prescriptions: New (DME) T.E.D. Knee Rljuli-H-Mtwn Misc See Rx Instructions .ROUTE .MEDSUPPLY Qty: 12 RF: 0 metolazone 5 mg Tablet 5 mg PO DAILY PRN PRN (Reason: Weight gain > 2lb) 30 Days Qty: 30 RF: 0 bumetanide 2 mg tablet 2 mg PO DAILY PRN PRN (Reason: Weight gain>2lb, take prior to metolazone) 30 Days Qty: 30 RF: 0 Continued acetaminophen 325 mg tablet 325 mg PO ONCE PRN (Reason: Pain) RF: 0 isosorbide dinitrate 5 mg tablet 5 mg PO TID RF: 0 multivitamin Tablet 1 tab PO DAILY RF: 0 hydralazine 10 mg Tablet 10 mg PO TID RF: 0 spironolactone 25 mg tablet 12.5 mg PO DAILY RF: 0 aspirin 81 MG tablet,delayed release (DR/EC) 81 mg PO DAILY RF: 0 Hold Instructions: Bruising carvedilol 3.125 mg tablet 3.125 mg PO BID RF: 0 ondansetron 4 mg tablet,disintegrating 4 mg PO Q6H PRN (Reason: nausea and vomiting) Qty: 10 RF: 0 guaifenesin [Mucinex] 600 mg Tablet Extended Release 12hr 600 mg PO PRN PRN (Reason: Sinus Symptoms) RF: 0 spironolactone 25 mg Tablet 12.5 mg PO DAILY RF: 0 tizanidine 2 mg Capsule 2 mg PO BID PRN PRN (Reason: Muscle Pain) RF: 0 sertraline 50 mg tablet 25 mg PO QHS RF: 0 Discontinued furosemide [Lasix] 20 mg tablet 20 mg PO DAILY PRN (Reason: Weight Gain) Qty: 0 RF: 0 Referrals / Follow Up: Mirta Singh PA [PHYSICIAN VAMP SEAMER] - (Follow-up this coming week with Cardiology. Call office Sunday to arrange appointment. They will follow-up on assessment and also obtain basic metabolic panel at this visit.) Disposition Disposition (needs filled in before D/C Order can be placed): Home, Self Care
[2022-01-15 10:04] VITALS: BP 111/68; PULSE 86; RESP 16; TEMP 36.7; O2SAT 97
[2022-01-15] MEDS: Carvedilol 3.125 MG TABLET PO (10:08)
[2022-01-15] MEDS: Spironolactone 25 MG Tablet 12.5 MG PO (10:08)
[2022-01-15] MEDS: Aspirin E.C. 81 MG Tablet PO (10:08)
--- NOTE | 2022-01-15 11:31 | PN.HOSP_ITS ---
Subjective Subjective Patient overnight with no acute events per self and per nursing report. Patient did tolerate medication adjustments made the evening prior per discussion with cardiology with decrease of the Isordil to 5 mg once daily only and continuation of hydralazine with continue Bumex however upon discussions this morning she is very adamant that she would like to transition back to her old regimen and discontinue Bumex and make it only as needed. Discussed at length with cardiology and these changes were made with planned as needed only Bumex and metolazone with specific parameters. Patient denies fevers, chills, nausea, emesis, abdominal pain, chest pain or dyspnea. Objective Data Objective Data Vital Signs: Vital Signs Temp Pulse Resp BP Pulse Ox 98.1 F 86 16 111/68 97 01/15/22 10:04 01/15/22 10:04 01/15/22 10:04 01/15/22 10:04 01/15/22 10:04 Oxygen Flow Rate (L/min) 2 Oxygen Delivery Method Room Air Weight: 113 lb Body Mass Index (BMI) 23.2 Intake & Output: Intake and Output for Last 24 Hours 01/13/22 01/14/22 01/15/22 23:59 23:59 23:59 Intake Total 1495.87 / 1495.87 580 / 830 550 / 550 Output Total 7600 / 7600 800 / 1450 650 / 650 Balance -6104.13 / -6104.13 -220 / -620 -100 / -100 Lab / Micro Data Result Diagrams: 01/15/22 05:36 01/15/22 05:36 Labs: Laboratory Results - last 24 hr 01/15/22 05:36: WBC 7.4, RBC 4.48, Hgb 13.8, Hct 40.9, MCV 91.3, MCH 30.8, MCHC 33.7, RDW Std Deviation 47.3 H, RDW Coeff of Toby 14.1, Plt Count 243, MPV 10.0, Immature Gran % (Auto) 0.300, Neut % (Auto) 69.6, Lymph % (Auto) 18.0 L, Starke % (Auto) 8.9, Eos % (Auto) 2.4, Baso % (Auto) 0.8, Absolute Neuts (auto) 5.1, Absolute Lymphs (auto) 1.33, Nucleated RBC % 0 01/15/22 05:36: Sodium 136, Potassium 3.5, Chloride 99, Carbon Dioxide 33.0 H, Anion Gap 4 L, BUN 27 H, Creatinine 0.85, Estim Creat Clear Calc 45.81, Est GFR (MDRD) Af Amer 85, Est GFR (MDRD) Non-Af 70, BUN/Creatinine Ratio 31.8 H, Glucose 155 H, Calcium 8.6, Total Bilirubin 0.60, AST 27, ALT 46, Alkaline Phosphatase 113, Total Protein 6.4, Albumin 3.2, Globulin 3.2, Albumin/Globulin Ratio 1.0 Physical Exam Narrative Physical Examination: General: Awake, alert, oriented x 3 and cooperative, seated upright in the PCU bed, comfortable appearing, compensated, no dyspnea evident at all. Skin: Normal color, normal turgor, no icterus, no cyanosis. HEENT: AT/NC, EOMI, PERRLA, MMM. Lungs: Diminished, improved air movement, appropriate effort, no rales, rhonchi or wheezing, normalized effort. Heart: Regular rate with regular rhythm/paced; no gallop, rub audible. Abdomen: Soft, NTTP, ND, normal BS. Extremities: No cyanosis, no clubbing, resolved bilateral lower extremity swelling. Neurological: Patient awake, alert, oriented as noted, cognitive function intact; pupils equally reactive to light and accommodation, cranial nerves II- XII grossly normal, moving all 4 extremities, no focal deficits, strength improved, preserved. Psychiatric: Affect appears calm especially once discussed the full plan of care with per patient preference transition back to her prior regimen with as needed breakthrough metolazone and Bumex only, no acute evidence of depressive or anxiety feelings. Assessment & Plan Assessment/Plan (1) CHF exacerbation: QUALIFIERS: Heart failure type: systolic Qualified Code(s): I5 0.23 - Acute on chronic systolic (congestive) heart failure PLAN: The patient is a 71 y/o F w/ PMHx: Anxiety and Depression, CAD, Ischemic Cardiomyopathy, Chronic Systolic CHF, s/p AICD status, HTN, HLD, Former tobacco use who presents to the [facility] ED on 01/12/22 with history of several weeks of worsening lower extremity swelling more progressive over the last week curre ntly on Lasix 20 mg a day with refusal to alter this regimen secondary to lability of tolerance with no current PCP reportedly because she does not want have to wear a mask prompting eventual ED presentation secondary to difficulty sleeping. #1. Acute Decompensated Systolic CHF, Ischemic Cardiomyopathy with concurrent Acute NSTEMI: Patient administered IV lasix in the ED, given worsened respir atory status admitted to PCU and started on BIPAP with improvement with eventual transition to room air, maintained on cardiac telemetry, serial cardiac enzymes with initial 106-> 1132->3359 with overnight initiation of heparin drip, patient initiated on an maintained on IV bumex diuresis with oral metolazone, monitor I/Os, maintained on intake restriction, continue medical therapy, TSH 0.73, magn esium 1.9. Recent ECHO noted dilated LV, LV systolic function severely decreased with EF 16%, RV normal, RV systolic function normal, dilated LA, RVSP underestimated likely secondary to a weaker incomplete tricuspid regurgitation signal with 38 mmHg consistent with mild pulmonary hypertension. Cardiology consulted and evaluated patient in the ED. 01/13/22 de-escalated per Cardiology agreement to DVT prophylaxis lovenox. Given improvement 01/14/2022 transition to Bumex 2 mg daily with only as needed metolazone. Patient unfortunately did have low blood pressures and was hesitant about discharge to home and per discussion with cardiology with discontinuation of hydralazine at that time and vincent sitioned to Isordil 5 mg once daily. Patient did tolerate these medication changes however following lengthy discussion with patient and cardiology 01/15/2022 patient with regimen transition back to her first initial home regimen and plan of care given compensated appearance and patient's strong preference to avoid daily diuretics to have PCP initially listed was likely from referral made previously and she notes she is never followed up in this office and she is not willing at this time to initiate a PCP secondary to difficulty with tolerating mask which is required to be in these offices. Discussed options and at this time we will plan her an earlier follow-up with cardiology to have a BMP in the office. #2. CAD, nonobstructive per patient report, ischemic cardiomyopathy w/ as noted #1 Acute NSTEMI: Patient denies any PCI intervention, continued aspirin, Coreg, not on FLAVIO inhibitor/ARB secondary to intolerance and unable to tolerate statins as well. Patient serial cardiac enzymes with initial 106-> 1132->3359 with overnight initiation of heparin drip with decision for continued medical management based on prior catheterization per discussion with Cardiology. 01/13/22 transitioned to DVT prophylaxis lovenox from heparin drip. #3. Hypertension: As noted several changes made with initially attempted to transition to an oral Bumex but patient was hesitant and anxious therefore patient was transition back 01/15/2022 2 oral Coreg, spironolactone, hydralazine as well as isosorbide and the Bumex and metolazone were made as needed only associate with specific weight gain parameters. #4. Hyperlipidemia: Not on statin therapy with noted adverse reaction, FLP obtained. #5. Anxiety and depression: We will continue patient home sertraline regimen. #6. Former tobacco use: Encourage continued tobacco cessation. #7. DVT prophylaxis: SCDs, Lovenox. #8. CODE status: Patient CHING is her brother and son and living will is currently in place. DNR-CCA, no intubation status. Charges/Coding Visit Charges Inpatient E&M: 57128 Disch Hosp
== END 2022-01-15 13:08 | disposition home or self-care (01) | DRG 280 ==
LOC: ED 16:13 → PCU 16:36
PROVIDERS: Internal Medicine; Nurse Practitioner; Admitting Provider Family Medicine; Emergency Provider Student in an Organized Health Care Education/Training Program; Visit Provider Family Medicine
DX: I11.0 Hypertensive heart disease with heart failure (principal); I21.4 Non-ST elevation (NSTEMI) myocardial infarction; I50.23 Acute on chronic systolic (congestive) heart failure; I27.20 Pulmonary hypertension, unspecified; I25.10 Atherosclerotic heart disease of native coronary artery without angina pectoris; F41.9 Anxiety disorder, unspecified; I25.5 Ischemic cardiomyopathy; E78.5 Hyperlipidemia, unspecified; I25.2 Old myocardial infarction; R09.02 Hypoxemia; F32.A Depression, unspecified; Z66 Do not resuscitate; Z51.5 Encounter for palliative care; Z79.82 Long term (current) use of aspirin; Z79.899 Other long term (current) drug therapy; Z87.891 Personal history of nicotine dependence; Z95.810 Presence of automatic (implantable) cardiac defibrillator
CPT/HCPCS: 36415; 71045; 80048; 80053; 80061; 83735; 83880; 84439; 84443; 84484; 85025; 85730; 93005; 93306; 94002; 94762; 97802; 99285; 99406; A4216; J1940

== ENCOUNTER 2022-01-19 09:34 | Outpatient (CLI) | payer MEDICARE, SELFPAY ==
[2022-01-19 11:27] LABS: Anion Gap 3 (5-15); BUN 20 mg/dL (7-18); BUN/Creat Ratio 24.3 RATIO (10-20); Calcium,Total 9.1 mg/dL (8.5-10.1); Chloride 105 mmol/L (98-107); Creatinine, Serum 0.82 mg/dL (0.55-1.02); EST Glomerular Filtration Rate 73 mL/min (>60); Est Glom Filt Rate - Afr Amer 88 mL/min (>60); Glucose 94 mg/dL (74-106); Potassium 3.6 mmol/L (3.5-5.1); Sodium Level 138 mmol/L (136-145)
== END 2022-01-19 23:59 | disposition home or self-care (01) ==
LOC: LAB 09:35
PROVIDERS: Referring Provider Physician Assistant Medical; Visit Provider Physician Assistant Medical
DX: I50.23 Acute on chronic systolic (congestive) heart failure (principal)
CPT/HCPCS: 36415; 80048

== ENCOUNTER 2022-01-25 19:18 | Inpatient (IN) | payer MEDICARE, SELFPAY ==
[2022-01-25] VITALS (9 sets, daily range): BP systolic 133–143; BP diastolic 90–114; PULSE 74–118; RESP 12–20; TEMP 36.1–36.8; O2SAT 99–100; BMI 22.9; BMI 22.4
--- NOTE | 2022-01-25 19:25 | EKG12_ITS ---
Test Reason : SOB Blood Pressure : / mmHG Vent. Rate : 116 BPM Atrial Rate : 116 BPM P-R Int : 136 ms QRS Dur : 194 ms QT Int : 430 ms P-R-T Axes : 059 -71 103 degrees QTc Int : 597 ms Atrial-sensed ventricular-paced rhythm Biventricular pacemaker detected Abnormal ECG Confirmed by BRAEDEN ALCARAZ, MIL ([id number]), international editorial producer GURMEET PERKINS ([id number]) on 02/01/2022 10:54:26 AM Referred By: ROSALIE Confirmed By:MIL DERAS MD
--- NOTE | 2022-01-25 19:28 | ED.VIS.DYS ---
HPI History of Present Illness Chief Complaint: Shortness of Breath Informant: patient and EMS Narrative Narrative: Patient is a 71-year-old female with history of CHF with reduced ejection fraction, COPD and anxiety presenting with difficulty breathing. Patient states she felt a little short of breath yesterday but became severely short of breath today. She did take a dose of Bumex. Patient has a history of significant heart failure with an EF of 15%. She is had multiple hospitalizations for her fluid balance and CHF. Patient initially thought it was her anxiety. EMS was called and she was 85% on scene. Patient was roberson and cyanotic per EMS. She did feel better on CPAP. Upon arrival to the ER she is transitioned to our BiPAP. Patient denies any chest pain. Denies any swelling of her legs. [facility] Medical History (Updated 01/26/22 @ 00:[address] Adriana Carrillo, ) Anxiety CAD (coronary artery disease) Cardiomyopathy, ischemic CHF (congestive heart failure), NYHA class IV Coronary artery disease COVID-19 virus infection Depression Former smoker Hypertension Mitral valve disease Non-ST elevation (NSTEMI) myocardial infarction Pneumonia due to COVID-19 virus Presence of biventricular automatic implantable cardioverter defibrillator Home Medications hydralazine 10 mg PO TID 02/28/21 [History Last Taken 04/06/21 13:30] acetaminophen 325 mg tablet 325 mg PO ONCE PRN 04/21/21 [History Last Taken Unknown] isosorbide dinitrate 5 mg tablet 5 mg PO TID 04/21/21 [History Last Taken Unknown] spironolactone 12.5 mg PO DAILY 04/27/21 [History Last Taken Unknown] aspirin 81 mg PO DAILY 06/12/21 [History Last Taken Unknown] carvedilol 3.125 mg PO BID 06/12/21 [History Last Taken Unknown] ondansetron 4 mg PO Q6H PRN #10 tab 08/16/21 [Rx Last Taken Unknown] guaifenesin [Mucinex] 600 mg PO PRN PRN 10/27/21 [History Last Taken Unknown] multivitamin 1 tab PO DAILY 11/14/21 [History Last Taken Unknown] compr.stocking,knee,long,small [T.E.D. Knee Ljpndr-S-Zbbj] #12 ea 01/12/22 [Rx Last Taken Unknown] sertraline 25 mg PO QHS 01/12/22 [History Last Taken Unknown] spironolactone 12.5 mg PO DAILY 01/12/22 [History Last Taken Unknown] metolazone 5 mg PO DAILY PRN PRN 30 Days #30 tab 01/14/22 [Rx Last Taken Unknown] Allergy/AdvReac Type Severity Reaction Status Date / Time Sulfa (Sulfonamide Allergy Rash Verified 01/25/22 19:25 Antibiotics) amoxicillin AdvReac Other Verified 01/25/22 19:25 [id number]-CiL Reductase AdvReac palpitation Verified 01/25/22 19:25 Inhibitor s [Evcdfrv-Zts-Ayk Reductase Inhibitor] Family History (Updated 01/12/22 @ 16:[address] Salina Wang MD) Father Aneurysm Grandmother Congestive heart failure Brother Diabetes Grandfather Myocardial infarction, Onset Age: 60 Grandfather Myocardial infarction, Onset Age: 60 Mother CVA (cerebral vascular accident) Cancer Hx Lung CA w/ tobacco use history. Other Heart disease Surgical History History of left heart catheterization (LHC) (~01/31/21) S/P implantation of automatic cardioverter/defibrillator (AICD) Social History (Updated 01/12/22 @ 16:[address] Salina Wang MD) household members: none Smoking Status: Former smoker how long ago did patient quit smoking: Quit 01/2021 with prior 1/2 ppd since 20 y/o. alcohol intake: never substance use type: does not use caffeine: Yes Type: coffee ROS ROS ED Review of Systems ROS Unobtainable: other Details: respiratory distress EXAM Physical Exam Const Vital Signs: 01/25/22 19:20 01/25/22 19:25 01/25/22 19:27 Temperature 97.8 F Temperature Source Temporal Pulse Rate 118 H 116 H Respiratory Rate 20 H 19 H Respiratory Effort Short of Breath Blood Pressure 143/114 H Blood Pressure Mean 123 Pulse Ox 100 100 Oxygen Delivery Method Bi-pap Bi-pap Fraction of Inspired Oxygen (FIO2) 100 01/25/22 19:30 Temperature Temperature Source Pulse Rate Respiratory Rate Respiratory Effort Blood Pressure Blood Pressure Mean Pulse Ox Oxygen Delivery Method Fraction of Inspired Oxygen (FIO2) 70 Positive cachectic General Appearance ED: cachectic Nutritional Appearance: cachectic HEENT Reports moist mucous membranes atraumatic Eyes PERRL and EOMs intact bilaterally Neck supple Neck Narrative: + JVD Resp Resp Narrative: tachypnea Auscultation: diminished lung sounds; Negative for wheezes Cardio regular rhythm and no murmurs Rate: tachycardic GI non-tender and non-distended Palpation: soft Extremity normal to inspection General Extremety ED: Negative for edema General Extremity: Negative for edema Neuro oriented x3 Sensorium / Orientation: alert Psych mental status grossly normal Mood & Affect: anxious Skin Lesions: no lesions Rashes: no rashes MDM MDM MDM Narrative Medical decision making narrative: Patient evaluated for acute onset of difficulty breathing. She significant cardiopulmonary history including CHF and COPD. Not entirely clear how compliant she has been with her diuretics at home. She feels much better on noninvasive ventilation. CBC is normal. BMP is remarkable for sodium of 132 and a creatinine 1.15 which is pretty nonspecific. Her glucose is 288. High-sensitivity phone is 41. BNP is 3319. Chest x-ray to read by myself as radiology shows worsening pulmonary findings concerning for CHF. Patient's lactate is 4.4. On arrival patient was cyanotic and I suspect the lactic acidosis is secondary to hypoxia. ABG was obtained which showed hypercapnic respiratory acidosis. Patient will be maintained on BiPAP. She is admitted to PCU for further respiratory management. This time I do not suspect pneumonia and will defer antibiotics at this time. She is not wheezing to have a lower suspicion for COPD exacerbation. Will defer steroids. Lab Data Labs: Laboratory Results - last 24 hr 01/25/22 01/25/22 01/25/22 19:30 19:30 19:30 WBC 8.9 RBC 4.79 Hgb 14.8 Hct 45.8 MCV 95.6 MCH 30.9 MCHC 32.3 RDW Std Deviation 49.3 H RDW Coeff of Toby 14.1 Plt Count 276 MPV 11.5 Immature Gran % (Auto) 0.300 Neut % (Auto) 78.9 H Lymph % (Auto) 13.9 L Churchill % (Auto) 4.5 Eos % (Auto) 1.6 Baso % (Auto) 0.8 Absolute Neuts (auto) 7.1 Absolute Lymphs (auto) 1.24 Nucleated RBC % 0 Sodium 132 L Potassium 4.8 Chloride 99 Carbon Dioxide 25.0 Anion Gap 8 BUN 19 H Creatinine 1.15 H Estim Creat Clear Calc 33.86 Est GFR (MDRD) Af Amer 60 Est GFR (MDRD) Non-Af 49 L BUN/Creatinine Ratio 16.5 Glucose 288 H Lactic Acid Calcium 9.3 Troponin I High Sens 41 B-Natriuretic Peptide 3319.4 H 01/25/22 19:30 WBC RBC Hgb Hct MCV MCH MCHC RDW Std Deviation RDW Coeff of Toby Plt Count MPV Immature Gran % (Auto) Neut % (Auto) Lymph % (Auto) Churchill % (Auto) Eos % (Auto) Baso % (Auto) Absolute Neuts (auto) Absolute Lymphs (auto) Nucleated RBC % Sodium Potassium Chloride Carbon Dioxide Anion Gap BUN Creatinine Estim Creat Clear Calc Est GFR (MDRD) Af Amer Est GFR (MDRD) Non-Af BUN/Creatinine Ratio Glucose Lactic Acid 4.4 H* Calcium Troponin I High Sens B-Natriuretic Peptide ABG Data ABG results: ABG 01/25/22 19:41 Specimen Type ART Sample Site R Radial pH 7.24 L Bicarbonate Actual 21.6 L Total CO2 23 Base Excess -6 L O2 Saturation 100 H O2 % 80 ABG pCO2 50.2 H ABG pO2 275 H Carroll Test Positive O2 Delivery Device BiPAP Clinical Comments bipap 16/8 80% Radiography Chest X-Ray - ED: 1 View, Read by ED Physician, Read by Radiologist and CHF Diagnostic Testing: Clinical Impression(s) from Imaging Studies Chest X-Ray 01/25/22 19:44 IMPRESSION: Pulmonary findings appear worse. Electronically Signed: Sundeep Gomez MD at 19:59 EDT Reading Location ID and State: [facility]– [place] / [place] , Service support , Rhythm Strip Rhythm Strip: Sinus Tach Rate: 116 Ectopy: None EKG Initial EKG: Attestation: I personally reviewed and interpreted this EKG as follows: Interpretation: Sinus Tachycardia Comments: Atrial sensed ventricular paced rhythm at a rate of 116 Borderline left axis Nonspecific T wave/ST segment changes No significant change greater prior EKG on 01/12/2022 Prior: Unchanged Critical Care Time Critical Care Time: Yes Critical care time (excluding procedures): 30-74 minutes (35), Arranging Admission or Transfer, Performing Direct Patient Care at Bedside and - (acute CHF exacerbation requiring non invasive ventilation, interpretation of results and arranging admission.) Discharge Plan Triage Chief Complaint: Shortness of Breath ED Provider: Adriana Carrillo Dx/Rx/DC Orders Clinical Impression: Acute respiratory failure with hypoxia and hypercapnia, CHF exacerbation Primary Care Provider: Care Physician,No Primary Disposition Disposition: Acute Care [facility] Discharge Date/Time: 01/25/22 21:34
--- NOTE | 2022-01-25 19:44 | RAD_ITS ---
STUDY: X-RAY CHEST REASON FOR EXAM: Female, 71 years old. CHEST PAIN sob TECHNIQUE: XR Chest 1 View COMPARISON: 3. FINDINGS: There are bilateral pleural effusions. There are bilateral infiltrates. There is a left sided pacemaker batterypack. Normal size heart. Normal mediastinum and sp. Normal visualized pulmonary arteries. There is atherosclerotic calcification of the aortic arch with tortuosity. There are diffuse degenerative changes of the visualized thoracic spine. There is degenerative osteoarthritis of the bilateral shoulders. There is no demonstrated abnormality of the visualized soft tissue structures of the upper abdomen. RAD/Chest 1 View (Portable) IMPRESSION: Pulmonary findings appear worse. Electronically Signed: Sundeep Gomez MD at 19:59 EDT ,
[2022-01-25 19:46] LABS: Allen Test Positive; Base Excess -6 mmol/L (-2 to +2); Bicarbonate 21.6 mmol/L (22-26); Blood Gas Specimen Type ART; FI02 80; O2 Delivery Device BiPAP; PO2 275 mmHG (75-100); SITE R Radial; SO2 100 % (95-99); Total Carbon Dioxide 23 mmol/L; pCO2 50.2 mmHg (35-45); pH 7.24 (7.35-7.45)
--- NOTE | 2022-01-25 19:55 | CM.ED ---
Social Work Consult: No PCP Referral source: Self referral due to above. Attempted to speak with patient in room. Patient wearing bi-pap and unable to talk with this delinquency prevention social worker right now. Bhavya alexander MSW, REESE
[2022-01-25 20:01] LABS: Absolute Lymphocyte Count 1.24 X10^3/uL (0.83-4.51); Absolute Neutrophil Count 7.1 X10^3/uL (2.0-7.7); Basophil# 0.07 X10^3/uL; Basophil% 0.8 % (0-1); Eosinophil# 0.14 X10^3/uL; Eosinophils% 1.6 % (0-5); Hematocrit 45.8 % (37-47); Hemoglobin 14.8 g/dL (12.0-15.0); Lymphocyte # 1.24 X10^3/ul (0.83-4.51); Lymphocyte % 13.9 % (19-41); Mean Corp Hgb Conc 32.3 g/dL (32-36); Mean Corpuscular Hgb 30.9 pg (27.0-32.0); Mean Corpuscular Volume 95.6 fL (81-99); Mean Platelet Vol. 11.5 fl (6.2-12.0); Monocyte% 4.5 % (0-10); NRBC Flagged by Analyzer 0 % (0-5); Neutrophil # 7.06 X10^3/uL (2.7-7.7); Neutrophil % 78.9 % (47-70); Platelet Count 276 K/mm3 (150-450); RBC Distribution Width CV 14.1 % (11.6-14.6); RBC Distribution Width SD 49.3 fl (35.1-43.9); Red Blood Count 4.79 M/mm3 (4.2-5.4); White Blood Count 8.9 K/mm3 (4.4-11.0)
[2022-01-25 20:23] LABS: Anion Gap 8 (5-15); BUN 19 mg/dL (7-18); BUN/Creat Ratio 16.5 RATIO (10-20); Calcium,Total 9.3 mg/dL (8.5-10.1); Chloride 99 mmol/L (98-107); Creatinine, Serum 1.15 mg/dL (0.55-1.02); EST Glomerular Filtration Rate 49 mL/min (>60); Est Glom Filt Rate - Afr Amer 60 mL/min (>60); Estimated Creatinine Clearance 33.86 ml/min; Glucose 288 mg/dL (74-106); Potassium 4.8 mmol/L (3.5-5.1); Sodium Level 132 mmol/L (136-145); Troponin-I HS 41 pg/mL (3.0-54.0)
[2022-01-25 20:24] LABS: BNP,B-Type NATRIURETIC PEPTIDE 3319.4 pg/mL (0-100)
--- NOTE | 2022-01-25 20:40 | HP.PCM.HOS_ITS ---
HPI - General General Date of Admission: 01/25/22 Date of Service: 01/25/22 Chief Complaint: Dyspnea, recent 1.5 weight gain, BL LE edema. HPI Narrative The patient is a 71 y/o F w/ PMHx: Anxiety and Depression, CAD, Ischemic Cardiomyopathy, Chronic Systolic CHF, s/p AICD status, HTN, HLD, Former tobacco use, recently discharged 01/15/22 following diuresis with IV Bumex and oral metaxalone eventually transitioned off secondary to hypotension with significant diuresis with elevated serial cardiac enzymes with yanet [id number] who now re-pres ents to the [facility] ED on 01/25/22 with history of ongoing close self-monitoring of weights and if any gain of 2 pounds or more instructions to administer self 2 mg Bumex x1 with patient admission that she had lower extremity pedal swelling on day of presentation and did herself take 1 Bumex dose however she became more dyspneic with increased work of breathing accessory muscle usage as well as mottled upper and lower distal extremities prompting EMS call. Patient with recent admission decision per cardiology for continued medical management with significantly reduced EF with recent echocardiogram with dilated LV, LV systolic function decreased to see EF 60%, normal RV, RV systolic function normal, dilated LA, RVSP likely underestimated secondary to incomplete tricuspid regurgitation with 38 mmHg with eventual discharged home with close self- monitoring of weights and if any gain of 2 pounds or more instructions to administer self 2 mg Bumex x1 with patient admission that she had lower extrem ity pedal swelling on day of presentation and did herself take 1 Bumex dose however she became more dyspneic with increased work of breathing accessory muscle usage as well as mottled upper and lower distal extremities prompting EMS call. She denies any recent fevers or chills. She does state that she was wheezing but this is only upon ED presentation and had not been prior. She denies any recent specific productive cough. Work-up in the ED included T 97.8, heart rate initially 118, BP initially 143/114, respiratory rate 20, immediately transition to BiPAP on her percent FiO2, following transition patient noted some improvement and was able to speak in clear sentences with no significant issues apparent, CBC with WC 8.9, hemoglobin 14.8, platelet 276 without marked shift, ABG with pH 7.24, bicarb 21.6, O2 saturation 100%, O2 percent 80, PCO2 50.2, PO2 275 on BiPAP 16/880%, BMP with sodium 132, BUN/creatinine 19/1.15, glucose 288, troponin 41, BNP 3319.4 mildly decreased from most recent on 01/12/2022 3584.3 with admission at that time with CHF exacerbation, EKG paced with no acute evidence of ischemia, chest x-ray with bilateral effusions, infiltrates with concern for worsening overload, blood culture x2 pending per ED, lactic acid pending per ED, rapid influenza pending per ED, pacer ICD device check per ED. FORMERLY [facility], [facility] Medical History (Updated 01/25/22 @ 20:[address] Salina Wang MD) Anxiety CAD (coronary artery disease) Cardiomyopathy, ischemic CHF (congestive heart failure), NYHA class IV Coronary artery disease COVID-19 virus infection Depression Former smoker Hypertension Mitral valve disease Non-ST elevation (NSTEMI) myocardial infarction Pneumonia due to COVID-19 virus Presence of biventricular automatic implantable cardioverter defibrillator Home Medications hydralazine 10 mg PO TID 02/28/21 [History Last Taken 04/06/21 13:30] acetaminophen 325 mg tablet 325 mg PO ONCE PRN 04/21/21 [History Last Taken Unknown] isosorbide dinitrate 5 mg tablet 5 mg PO TID 04/21/21 [History Last Taken Unknown] spironolactone 12.5 mg PO DAILY 04/27/21 [History Last Taken Unknown] aspirin 81 mg PO DAILY 06/12/21 [History Last Taken Unknown] carvedilol 3.125 mg PO BID 06/12/21 [History Last Taken Unknown] ondansetron 4 mg PO Q6H PRN #10 tab 08/16/21 [Rx Last Taken Unknown] guaifenesin [Mucinex] 600 mg PO PRN PRN 10/27/21 [History Last Taken Unknown] multivitamin 1 tab PO DAILY 11/14/21 [History Last Taken Unknown] compr.stocking,knee,long,small [T.E.D. Knee Xxkdrh-U-Jsvj] #12 ea 01/12/22 [Rx Last Taken Unknown] sertraline 25 mg PO QHS 01/12/22 [History Last Taken Unknown] spironolactone 12.5 mg PO DAILY 01/12/22 [History Last Taken Unknown] metolazone 5 mg PO DAILY PRN PRN 30 Days #30 tab 01/14/22 [Rx Last Taken Unknown] Allergy/AdvReac Type Severity Reaction Status Date / Time Sulfa (Sulfonamide Allergy Rash Verified 01/25/22 19:25 Antibiotics) amoxicillin AdvReac Other Verified 01/25/22 19:25 Pcdamxk-HSN-TmW Reductase AdvReac palpitation Verified 01/25/22 19:25 Inhibitor s [Mbmwgkm-Dan-Xbz Reductase Inhibitor] Family History (Updated 01/12/22 @ 16:[address] Salina Wang MD) Father Aneurysm Grandmother Congestive heart failure Brother Diabetes Grandfather Myocardial infarction, Onset Age: 60 Grandfather Myocardial infarction, Onset Age: 60 Mother CVA (cerebral vascular accident) Cancer Hx Lung CA w/ tobacco use history. Other Heart disease Surgical History (Updated 01/12/22 @ 16:[address] Salina Wang MD) History of left heart catheterization (LHC) (~01/31/21) S/P implantation of automatic cardioverter/defibrillator (AICD) Social History (Updated 01/12/22 @ 16:[address] Salina Wang MD) household members: none Smoking Status: Former smoker how long ago did patient quit smoking: Quit 01/2021 with prior 1/2 ppd since 20 y/o. alcohol intake: never substance use type: does not use caffeine: Yes Type: coffee ROS ROS Narrative Admission Review of Systems: CONSTITUTIONAL: No weight loss, fever, chills, + weakness or fatigue. HEENT: Eyes: No visual loss, blurred vision, double vision or yellow sclerae. Ears, Nose, Throat: No hearing loss, sneezing, congestion, runny nose or sore throat. SKIN: No rash or itching, lesions, wounds. CARDIOVASCULAR: + Edema, orthopnea, No chest pain, chest pressure or chest discomfort, syncopal events. RESPIRATORY: + shortness of breath, No cough or sputum, wheezing, hemoptysis. GASTROINTESTINAL: No anorexia, nausea, vomiting or diarrhea, abdominal pain, melena, BRBPR. GENITOURINARY: No dysuria, frequency, urgency or retention. NEUROLOGICAL: No headache, dizziness, syncope, paralysis, ataxia, numbness or tingling in the extremities, focal weakness, change in bowel or bladder control, seizure. MUSCULOSKELETAL: No muscle, back pain, joint pain or stiffness. HEMATOLOGIC: + anemia, bleeding or bruising. LYMPHATICS: No enlarged nodes. No history of splenectomy. PSYCHIATRIC: + history of depression or anxiety. ENDOCRINOLOGIC: No reports of sweating, cold or heat intolerance. No polyuria or polydipsia. ALLERGIES: No history of asthma, hives, eczema or rhinitis. Vital Signs Vital Signs Vital Signs: 01/25/22 19:20 01/25/22 19:25 01/25/22 19:27 Temperature 97.8 F Temperature Source Temporal Pulse Rate 118 H 116 H Respiratory Rate 20 H 19 H Respiratory Effort Short of Breath Blood Pressure 143/114 H Blood Pressure Mean 123 Pulse Ox 100 100 Oxygen Delivery Method Bi-pap Bi-pap Fraction of Inspired Oxygen (FIO2) 100 01/25/22 19:30 Temperature Temperature Source Pulse Rate Respiratory Rate Respiratory Effort Blood Pressure Blood Pressure Mean Pulse Ox Oxygen Delivery Method Fraction of Inspired Oxygen (FIO2) 70 Weight Weight: 121 lb 7.595 oz Body Mass Index (BMI) 22.9 Physical Exam Narrative Physical Examination: General: Awake, alert, oriented x 3 and cooperative, seated upright in the ED bed, on BIPAP, mildly increased RR but able to speak in full sentences, improving she notes. Skin: Normal color, normal turgor, no icterus, mildly mottled feet, had distal upper and lower per EMS and upon initial ED presentation but improving. HEENT: AT/NC, EOMI, PERRLA, MMM, no carotid bruits, + JVD noted, BIPAP in place. Lungs: Diminished, greater bases, increased work of breathing accessory with mild muscle usage noted but improving, minimal rales bases, no rhonchi or wheezing, BIPAP in place. Heart: Currently mildly tachycardic with regular rhythm/paced; no gallop, rub audible. Abdomen: Soft, thin habitus, NTTP, ND, distant hypoactive BS, no obvious evidence of HSM. Extremities: No cyanosis, no clubbing, bilateral lower extremity pedal mildly pitting edema, still mildly mottled appearance but improving she notes. Neurological: Patient awake, alert, oriented as noted, cognitive function intact; pupils equally reactive to light and accommodation, cranial nerves II- XII grossly normal, moving all 4 extremities, no focal deficits, strength severely globally decreased secondary to acute presentation. Psychiatric: Affect appears anxious, increased work of breathing accessory muscle usage with BIPAP in place as noted, improving since ED initial presentation, no acute evidence of depressive or anxiety feelings. Results Lab / Micro Data Result Diagrams: 01/25/22 19:30 01/25/22 19:30 Labs: Laboratory Results - last 24 hr 01/25/22 19:30: WBC 8.9, RBC 4.79, Hgb 14.8, Hct 45.8, MCV 95.6, MCH 30.9, MCHC 32.3, RDW Std Deviation 49.3 H, RDW Coeff of Toby 14.1, Plt Count 276, MPV 11.5, Immature Gran % (Auto) 0.300, Neut % (Auto) 78.9 H, Lymph % (Auto) 13.9 L, [place] % (Auto) 4.5, Eos % (Auto) 1.6, Baso % (Auto) 0.8, Absolute Neuts (auto) 7.1, Absolute Lymphs (auto) 1.24, Nucleated RBC % 0 01/25/22 19:30: Sodium 132 L, Potassium 4.8, Chloride 99, Carbon Dioxide 25.0, Anion Gap 8, BUN 19 H, Creatinine 1.15 H, Estim Creat Clear Calc 33.86, Est GFR (MDRD) Af Amer 60, Est GFR (MDRD) Non-Af 49 L, BUN/Creatinine Ratio 16.5, Glucose 288 H, Calcium 9.3, Troponin I High Sens 41 01/25/22 19:30: B-Natriuretic Peptide 3319.4 H Micro: Microbiology 01/25/22 19:40 Mucosa - Nasopharyngeal Influenza Types A,B Direct FA (CAROL) - Final ABG Data ABG results: ABG 01/25/22 19:41 Specimen Type ART Sample Site R Radial pH 7.24 L Bicarbonate Actual 21.6 L Total CO2 23 Base Excess -6 L O2 Saturation 100 H O2 % 80 ABG pCO2 50.2 H ABG pO2 275 H [place] Test Positive O2 Delivery Device BiPAP Clinical Comments bipap 16/8 80% Radiology Impression Chest X-Ray 01/25/22 19:44 IMPRESSION: Pulmonary findings appear worse. Electronically Signed: Sundeep Gomez MD at 19:59 EDT , Assessment & Plan Assessment/Plan (1) Acute respiratory failure with hypoxia and hypercapnia: (2) CHF exacerbation: QUALIFIERS: Heart failure type: systolic Qualified Code(s): I50.23 - Acute on chronic systolic (congestive) heart failure PLAN: The patient is a 71 y/o F w/ PMHx: Anxiety and Depression, CAD, Ischemic Cardiomyopathy, Chronic Systolic CHF, s/p AICD status, HTN, HLD, Former tobacco use, recently discharged 01/15/22 following diuresis with IV Bumex and oral metaxalone eventually transitioned off secondary to hypotension with significant diuresis with elevated serial cardiac enzymes with yanet 3359 who now re-presents to the [facility] ED on 01/25/22 with history of ongoing close self- monitoring of weights and if any gain of 2 pounds or more instructions to administer self 2 mg Bumex x1 with patient admission that she had lower extremity pedal swelling on day of presentation and did herself take 1 Bumex dose however she became more dyspneic with increased work of breathing accessory muscle usage as well as mottled upper and lower distal extremities prompting EMS call. #1. Acute Hypoxic and Hypercarbic Respiratory Failure secondary to Acute Decompensated Systolic CHF, Ischemic Cardiomyopathy: Wlil admit to the PCU, continue BIPAP, maintained on cardiac telemetry, serial cardiac enzymes will be continued with initial not marked appearing, start pulse dose bumex, monitor I/Os, maintained on intake restriction, continue medical therapy, recent TSH normal thus will not repeat. Will obtain mag level. Recent ECHO noted dilated LV, LV systolic function severely decreased with EF 16%, RV normal, RV systolic function normal, dilated LA, RVSP underestimated likely secondary to a weaker incomplete tricuspid regurgitation signal with 38 mmHg consistent with mild pulmonary hypertension. Will consult cardiology given quick readmission. Given patient significant labile nature with her CHF may be a good consideration for again cardiac rehab. Procalcitonin requested. #2. Hyperglycemia: Potentially stress response, glucose 288, will obtain hemoglobin A1c to be cautious. #3. CAD, nonobstructive per patient report, ischemic cardiomyopathy with recent 12/2021 admission w/ NSTEMI of note: No history of PCI intervention and not cand idate for CABG or LVAD therapy, continued aspirin, home Coreg, not on FLAVIO inhibitor/ARB secondary to intolerance and unable to tolerate statins as well. Prior admission with elevated troponin with yanet 3359 with decision for continued medical management only. Recently patient declined also consideration restart plavix from review of 01/13/22 Cardiology evaluatoin secondary to her concerns of bleeding risks of note #4. Hypertension: Will continue home Coreg, spironolactone, hydralazine as well as isosorbide w/ pulse dose bumex only given prior admission issues with hypotension and patient resistence to any medications changes. #5. Hyperlipidemia: Not on statin therapy with noted adverse reaction, FLP recently obtained during 12/2021 admission thus will defer repeat. #6. Anxiety and depression: We will continue patient home sertraline regimen. #7. Former tobacco use: Encourage continued tobacco cessation. #8. DVT prophylaxis: SCDs, Lovenox. #9. CODE status: Patient CHING is her brother and son and living will is currently in place. DNR-CCA, no intubation status. Charges/Coding Visit Charges Inpatient E&M: 27344 Init Hosp L3
[2022-01-25 20:44] LABS: Lactic Acid 4.4 mmol/L (0.4-1.9)
[2022-01-25 22:12] LABS: Procalcitonin 0.07 ng/mL (0.00-0.09)
[2022-01-25 22:18] LABS: Troponin-I HS 154 pg/mL (3.0-54.0)
[2022-01-25] MEDS: Sertraline 50 MG Tablet 25 MG PO (22:30)
[2022-01-25] MEDS: Carvedilol 3.125 MG TABLET PO (22:31)
[2022-01-25] MEDS: Isosorbide DN 10 MG Tablet 5 MG PO (22:31)
[2022-01-25] MEDS: Bumetanide 1 MG/4 ML Vial 2 MG IV (22:32)
[2022-01-25] MEDS: hydrALAZINE 10 MG Tablet PO (22:32)
[2022-01-25] MEDS: 0.9% Saline Lock 10 ML Syringe IV (22:34)
[2022-01-25 23:55] LABS: Reflex Lactate? Y
[2022-01-26] VITALS (21 sets, daily range): BP systolic 102–118; BP diastolic 65–78; PULSE 66–92; RESP 17–20; TEMP 35.8–37.3; O2SAT 96–100
[2022-01-26] MEDS: Acetaminophen 325 MG Tablet 650 MG PO (00:51)
[2022-01-26 01:35] LABS: Lactic Acid 0.7 mmol/L (0.4-1.9)
[2022-01-26 01:40] LABS: Troponin-I HS 1709 pg/mL (3.0-54.0)
[2022-01-26 05:39] LABS: Absolute Lymphocyte Count 1.23 X10^3/uL (0.83-4.51); Absolute Neutrophil Count 5.6 X10^3/uL (2.0-7.7); Basophil# 0.02 X10^3/uL; Basophil% 0.3 % (0-1); Eosinophil# 0.03 X10^3/uL; Eosinophils% 0.4 % (0-5); Hematocrit 38.8 % (37-47); Hemoglobin 13.2 g/dL (12.0-15.0); Lymphocyte # 1.23 X10^3/ul (0.83-4.51); Lymphocyte % 16.6 % (19-41); Mean Corpuscular Hgb 31.1 pg (27.0-32.0); Mean Corpuscular Volume 91.5 fL (81-99); Mean Platelet Vol. 10.3 fl (6.2-12.0); Monocyte# 0.57 X10^3/uL; Monocyte% 7.7 % (0-10); NRBC Flagged by Analyzer 0 % (0-5); Neutrophil # 5.55 X10^3/uL (2.7-7.7); Neutrophil % 74.6 % (47-70); Platelet Count 233 K/mm3 (150-450); RBC Distribution Width CV 13.6 % (11.6-14.6); RBC Distribution Width SD 45.4 fl (35.1-43.9); Red Blood Count 4.24 M/mm3 (4.2-5.4); White Blood Count 7.4 K/mm3 (4.4-11.0)
[2022-01-26 06:08] LABS: AST(SGOT) 47 U/L (15-37); Alanine Aminotransfer ALT/SGPT 64 U/L (13-56); Alkaline Phosphatase 116 U/L (45-117); Anion Gap 3 (5-15); BUN 19 mg/dL (7-18); BUN/Creat Ratio 26.8 RATIO (10-20); Calcium,Total 8.1 mg/dL (8.5-10.1); Chloride 103 mmol/L (98-107); Creatinine, Serum 0.71 mg/dL (0.55-1.02); EST Glomerular Filtration Rate 86 mL/min (>60); Est Glom Filt Rate - Afr Amer 104 mL/min (>60); Estimated Creatinine Clearance 38.94 ml/min; Glucose 100 mg/dL (74-106); Potassium 3.6 mmol/L (3.5-5.1); Sodium Level 138 mmol/L (136-145)
[2022-01-26] MEDS: hydrALAZINE 10 MG Tablet PO ×2 (06:33→21:40)
[2022-01-26 07:51] LABS: Hemoglobin A1c 5.8 % (3.8-5.6)
--- NOTE | 2022-01-26 09:11 | CON.PCM.CA_ITS ---
Assessment & Plan Assessment/Plan (1) Non-ST elevation (NSTEMI) myocardial infarction: PLAN: The patient has elevated high-sensitivity troponin I levels, as she has done in the past, compatible with an acute non-ST segment elevation HI. At the present time this would be concerning for a type II event brought out by her acute on chronic systolic mediated CHF. She has undergone extensive noninvasive and invasive cardiovascular evaluation locally and at [facility] as noted. She has been deemed a candidate for conservative medical therapy and not a candidate for revascularization therapy, LVAD therapy, cardiac transplantation, etc. Thus at the present time she will continue conservative medical management with adjustment of medicines as deemed appropriate. (2) CHF exacerbation: QUALIFIERS: Heart failure type: systolic Qualified Code(s): I50.23 - Acute on chronic systolic (congestive) heart failure PLAN: The patient has recurrent acute on chronic systolic mediated CHF. She has undergone previous extensive noninvasive and invasive evaluation as noted including a recent transthoracic echocardiogram. She will need to continue medical management with adjustment of her diuretics to improve her overall volume status and at the same time hopefully to avoid significant volume depletion and hemodynamic compromise. This will include IV diuretics to improve her overall volume status/pulmonary status with subsequent gradual resolution back to oral diuretics. (3) CAD (coronary artery disease): PLAN: The patient has extensive CAD. Again she has undergone extensive evaluation for this and has been deemed not a candidate for revascularization therapy. (4) Cardiomyopathy, ischemic: PLAN: The patient's ischemic cardiomyopathy has been evaluated extensively at [facility]. Based upon the aforementioned studies she was deemed not a candidate for additional therapy such as LVAD therapy or to be considered a candidate for cardiac transplantation. She was deemed a candidate for continued conservative medical management. Thus she will continue medical therapy as tolerated. (5) ICD (implantable cardioverter-defibrillator) in place: PLAN: The patient has an ICD in place. Her ICD has been reported is functioning appropriately. It has been reported as noting episodes of nonsustained ventricular tachycardia. She will continue to be monitored. She will continue medical therapy. She will continue to have her ICD followed. (6) HTN (hypertension): PLAN: The patient's blood pressure will be monitored and taken into consideration with adjustment of her medications. Addt'l Comments The patient's case has been discussed at length with her. This note was generated using a voice recognition system and there may be incorrect words, spelling or punctuation that were not noted when reviewing the office note prior to saving. HPI Consult Data Date of Consult: 01/26/22 HPI Narrative HPI Narrative: TIFFANY CARDONA, is a 71 year old white female who presents for cardiovascular consultation based upon a combination of abnormal cardiac enzymes, acute on chronic systolic mediated CHF, superimposed upon underlying CAD, ischemic mediated cardiomyopathy, status post ICD placement, and hypertension. As you recall, the patient has undergone extensive local and tertiary care center ([facility]) cardiovascular evaluation. Status post the [facility] evaluation (which included a cardiac PET scan which demonstrated large scar and no evidence of hibernation) she was deemed not to be a candidate for multivessel PCI, not a candidate for CABG, and not a candidate for LVAD therapy. She was delegated to continued conservative medical management. She states she has been enrolled in palliative care. She was recently evaluated at [facility] for concerns of recurrent acute on chronic systolic mediated CHF. It appears she underwent medical management with IV diuretic therapy. She states she felt improved when she was released home. However she notes recently she has had recurrent symptoms, as she did before, where she develops issues where she cannot sleep. She feels more short of breath and dyspneic. She notes that she develops lower extremity peripheral pitting edema. She is denied ongoing chest discomfort. She states she has felt at times palpitations. She has had no near-syncope or syncope. She presented back to the [facility] emergency department for reevaluation. She was noted to have elevated high-sensitivity troponin I levels and elevated BNP level (chronically elevated), and electronic ventricular paced rhythm, and a chest x-ray demonstrating bilateral pleural effusions and increased pulmonary vascularity. On additional laboratory studies it appeared she had an ABG performed with a pH reported at 7.24, bicarb level of 21.6, PCO2 of 50.2, O2 saturation reported at 100, oh 2% reported at 80. She was subsequently admitted to the PCU for further inpatient evaluation and care. She has continued medical therapy with alteration in her oral diuretics to IV diuretics. She has undergone recent reevaluation of her left ventricular wall motion systolic function with a transthoracic echocardiogram on 01-13-2022. At that time her left ventricle was reported as having severe left ventricular systolic dysfunction with reported LVEF of 10 to 15%. [facility] Medical History (Updated 01/26/22 @ 09:[address] Livan Phelps MD) Anxiety CAD (coronary artery disease) CAD (coronary artery disease) Cardiomyopathy, ischemic Cardiomyopathy, ischemic CHF (congestive heart failure), NYHA class IV Coronary artery disease COVID-19 virus infection Depression Former smoker HTN (hypertension) Hypertension ICD (implantable cardioverter-defibrillator) in place Mitral valve disease Non-ST elevation (NSTEMI) myocardial infarction Non-ST elevation (NSTEMI) myocardial infarction Pneumonia due to COVID-19 virus Presence of biventricular automatic implantable cardioverter defibrillator Home Medications hydralazine 10 mg PO TID 02/28/21 [History Last Taken 04/06/21 13:30] acetaminophen 325 mg tablet 325 mg PO ONCE PRN 04/21/21 [History Last Taken Unknown] isosorbide dinitrate 5 mg tablet 5 mg PO TID 04/21/21 [History Last Taken Unknown] spironolactone 12.5 mg PO DAILY 04/27/21 [History Last Taken Unknown] aspirin 81 mg PO DAILY 06/12/21 [History Last Taken Unknown] carvedilol 3.125 mg PO BID 06/12/21 [History Last Taken Unknown] ondansetron 4 mg PO Q6H PRN #10 tab 08/16/21 [Rx Last Taken Unknown] guaifenesin [Mucinex] 600 mg PO PRN PRN 10/27/21 [History Last Taken Unknown] multivitamin 1 tab PO DAILY 11/14/21 [History Last Taken Unknown] compr.stocking,knee,long,small [T.E.D. Knee Ierlbd-Q-Jimi] #12 ea 01/12/22 [Rx Last Taken Unknown] sertraline 25 mg PO QHS 01/12/22 [History Last Taken Unknown] spironolactone 12.5 mg PO DAILY 01/12/22 [History Last Taken Unknown] metolazone 5 mg PO DAILY PRN PRN 30 Days #30 tab 01/14/22 [Rx Last Taken Unknown] Allergy/AdvReac Type Severity Reaction Status Date / Time Sulfa (Sulfonamide Allergy Rash Verified 01/25/22 19:25 Antibiotics) amoxicillin AdvReac Other Verified 01/25/22 19:25 Hbovkli-Pjr-Qeo Reductase AdvReac palpitation Verified 01/25/22 19:25 Inhibitor s Family History (Updated 01/12/22 @ 16:[address] Salina Wang MD) Father Aneurysm Grandmother Congestive heart failure Brother Diabetes Grandfather Myocardial infarction, Onset Age: 60 Grandfather Myocardial infarction, Onset Age: 60 Mother CVA (cerebral vascular accident) Cancer Hx Lung CA w/ tobacco use history. Other Heart disease Surgical History History of left heart catheterization (LHC) (~01/31/21) S/P implantation of automatic cardioverter/defibrillator (AICD) Social History (Updated 01/12/22 @ 16:[address] Salina Wang MD) household members: none Smoking Status: Former smoker how long ago did patient quit smoking: Quit 01/2021 with prior 1/2 ppd since 20 y/o. alcohol intake: never substance use type: does not use caffeine: Yes Type: coffee ROS Constitutional Constitutional: Reports fatigue Eyes Eyes: Reports as per HPI ENT HEENT: Reports as per HPI Cardiovascular Cardiovascular: Reports dyspnea, dyspnea at rest, dyspnea on exertion, edema, fatigue and palpitations Respiratory/Chest Respiratory/Chest: Reports dyspnea and dyspnea on exertion Gastrointestinal Gastrointestinal: Reports as per HPI Genitourinary Genitourinary: Reports as per HPI Musculoskeletal Musculoskeletal: Reports as per HPI Integumentary Integumentary: Reports as per HPI Neurologic Neurologic: Reports as per HPI Psychiatric Psychiatric: Reports as per HPI Physical Exam Const alert, oriented x3 and no apparent distress Orientation / Consciousness: awake HEENT normocephalic, head/scalp atraumatic and hearing grossly normal bilaterally Eyes PERRL, EOMs intact bilaterally and conjunctivae normal Neck full ROM, supple and no JVD Chest Chest: left pectoral incision Resp Auscultation: diminished lung sounds bilateral lower Cardio regular rate, regular rhythm, S1 normal heart sound and S2 normal heart sound Heart Sounds: gallop S3 gallop and S4 gallop and abnormal sounds GI normal to inspection, nondistended, normoactive bowel sounds Extremity General Extremity: edema bilateral lower extremity Details: mild Skin no rashes or lesions noted Neuro oriented x3, moves all extremities, no focal motor deficits and no sensory d eficits noted Psych mental status grossly normal Risk Stratification Risk Stratification Applicable: Yes Age >/= 65: Yes >/= 3 CAD Risk Factors (HTN, HLD, DM, family hx of CAD, or current smoker): Yes Aspirin Use in the Past 7 Days: Yes Severe Angina (>/= episodes in 24 hours): No EKG ST Changes >/= 0.5mm: No Positive Cardiac Marker: Yes KATINA Risk Stratification Score: 4 KATINA % Risk: 20% Risk Procedure Criteria Type of Procedure Procedure Type: Elective Elective Risks - COVID COVID Risk Discussion: The surgeon/proceduralist and patient have discussed in detail the risk of exposure to and/or potential harm posed by the COVID-19 virus with having a surgery/procedure at this time versus the risk of delaying the surgery/procedure. It is not possible to know either the risk of delaying the surgery or procedure or chance of getting an infection with perfect accuracy, but a joint decision was made between the patient and the surgeon/proceduralist to proceed at this time with the scheduled surgery/procedure as indicated on the consent form. Objective Data Vital Signs: Vital Signs Temp Pulse Resp BP Pulse Ox 97.8 F 80 17 106/72 97 01/26/22 03:55 01/26/22 07:00 01/26/22 03:55 01/26/22 06:33 01/26/22 07:17 Oxygen Flow Rate (L/min) 2 Oxygen Delivery Method Nasal Cannula Weight: 119 lb 0.794 oz Body Mass Index (BMI) 22.4 Intake & Output: Intake and Output for Last 24 Hours 01/24/22 01/25/22 01/26/22 23:59 23:59 23:59 Intake Total 720 / 720 100 / 100 Output Total 1100 / 1100 975 / 975 Balance -380 / -380 -875 / -875 Lab / Micro Data Result Diagrams: 01/26/22 05:10 01/26/22 05:10 Labs: Laboratory Results - last 24 hr 01/25/22 19:30: WBC 8.9, RBC 4.79, Hgb 14.8, Hct 45.8, MCV 95.6, MCH 30.9, MCHC 32.3, RDW Std Deviation 49.3 H, RDW Coeff of Toby 14.1, Plt Count 276, MPV 11.5, Immature Gran % (Auto) 0.300, Neut % (Auto) 78.9 H, Lymph % (Auto) 13.9 L, Riley % (Auto) 4.5, Eos % (Auto) 1.6, Baso % (Auto) 0.8, Absolute Neuts (auto) 7.1, Absolute Lymphs (auto) 1.24, Nucleated RBC % 0 01/25/22 19:30: Sodium 132 L, Potassium 4.8, Chloride 99, Carbon Dioxide 25.0, Anion Gap 8, BUN 19 H, Creatinine 1.15 H, Estim Creat Clear Calc 33.86, Est GFR (MDRD) Af Amer 60, Est GFR (MDRD) Non-Af 49 L, BUN/Creatinine Ratio 16.5, Glucose 288 H, Calcium 9.3, Troponin I High Sens 41 01/25/22 19:30: B-Natriuretic Peptide 3319.4 H 01/25/22 19:30: Lactic Acid 4.4 H* 01/25/22 21:17: Magnesium 2.0 01/25/22 21:17: Procalcitonin 0.07 01/25/22 21:17: Troponin I High Sens 154 H* 01/26/22 01:03: Troponin I High Sens 1709 H* 01/26/22 01:03: Lactic Acid 0.7 01/26/22 05:10: WBC 7.4, RBC 4.24, Hgb 13.2, Hct 38.8, MCV 91.5, MCH 31.1, MCHC 34.0 D, RDW Std Deviation 45.4 H, RDW Coeff of Toby 13.6, Plt Count 233, MPV 10.3, Immature Gran % (Auto) 0.400, Neut % (Auto) 74.6 H, Lymph % (Auto) 16.6 L, Riley % (Auto) 7.7, Eos % (Auto) 0.4, Baso % (Auto) 0.3, Absolute Neuts (auto) 5.6, Absolute Lymphs (auto) 1.23, Nucleated RBC % 0 01/26/22 05:10: Sodium 138, Potassium 3.6, Chloride 103, Carbon Dioxide 32.0, Anion Gap 3 L, BUN 19 H, Creatinine 0.71, Estim Creat Clear Calc 38.94, Est GFR (MDRD) Af Amer 104, Est GFR (MDRD) Non-Af 86, BUN/Creatinine Ratio 26.8 H, Glucose 100, Calcium 8.1 L, Total Bilirubin 0.60, AST 47 H, ALT 64 H, Alkaline Phosphatase 116, Total Protein 6.0 L, Albumin 3.0 L, Globulin 3.0, Albumin/Globulin Ratio 1.0 01/26/22 05:10: Hemoglobin A1c 5.8 H Micro: Microbiology 01/25/22 19:40 Mucosa - Nasopharyngeal Influenza Types A,B Direct FA ([facility]) - Final ABG Data ABG results: ABG 01/25/22 19:41 Specimen Type ART Sample Site R Radial pH 7.24 L Bicarbonate Actual 21.6 L Total CO2 23 Base Excess -6 L O2 Saturation 100 H O2 % 80 ABG pCO2 50.2 H ABG pO2 275 H Carroll Test Positive O2 Delivery Device BiPAP Clinical Comments bipap 06/06 80% Rhythm Strip Rhythm Strip: Sinus Tach Rate: 116 Ectopy: None Cardiology Labs/Tests 01/25/22 19:30: WBC 8.9, RBC 4.79, Hgb 14.8, Hct 45.8, MCV 95.6, MCH 30.9, MCHC 32.3, Plt Count 276, MPV 11.5, Immature Gran % (Auto) 0.300, Neut % (Auto) 78.9 H, Lymph % (Auto) 13.9 L, Riley % (Auto) 4.5, Eos % (Auto) 1.6, Baso % (Auto) 0. 8, Absolute Neuts (auto) 7.1, Nucleated RBC % 0 01/25/22 19:30: Sodium 132 L, Potassium 4.8, Chloride 99, Carbon Dioxide 25.0, Anion Gap 8, BUN 19 H, Creatinine 1.15 H, Est GFR (MDRD) Af Amer 60, Est GFR (MDRD) Non-Af 49 L, BUN/Creatinine Ratio 16.5, Glucose 288 H, Calcium 9.3 01/25/22 19:30: B-Natriuretic Peptide 3319.4 H 01/25/22 19:30: Lactic Acid 4.4 H* 01/25/22 19:41: pH 7.24 L, Bicarbonate Actual 21.6 L, Base Excess -6 L, O2 Saturation 100 H, ABG pCO2 50.2 H, ABG pO2 275 H, Carroll Test Positive 01/25/22 21:17: Magnesium 2.0 01/26/22 01:03: Lactic Acid 0.7 01/26/22 05:10: WBC 7.4, RBC 4.24, Hgb 13.2, Hct 38.8, MCV 91.5, MCH 31.1, MCHC 34.0 D, Plt Count 233, MPV 10.3, Immature Gran % (Auto) 0.400, Neut % (Auto) 74.6 H, Lymph % (Auto) 16.6 L, Riley % (Auto) 7.7, Eos % (Auto) 0.4, Baso % (Auto) 0.3, Absolute Neuts (auto) 5.6, Nucleated RBC % 0 01/26/22 05:10: Sodium 138, Potassium 3.6, Chloride 103, Carbon Dioxide 32.0, An ion Gap 3 L, BUN 19 H, Creatinine 0.71, Est GFR (MDRD) Af Amer 104, Est GFR (MDRD) Non-Af 86, BUN/Creatinine Ratio 26.8 H, Glucose 100, Calcium 8.1 L, Total Bilirubin 0.60 01/26/22 05:10: Hemoglobin A1c 5.8 H Rhythm: Electronic ventricular paced rhythm EKG: Electronic ventricular paced rhythm Transthoracic echocardiogram: 01-30-21 Interpretation Summary Severely dilated left ventricle. Severe segmental systolic dysfunction (see wall motion). The estimated ejection fraction is 15 %. The left atrium is mildly enlarged. Moderate diffuse mitral valve thickening. Mild papillary muscle dysfunction of the mitral valve. Moderate (2+) mitral valve insufficiency. Mild tricuspid valve insufficiency. Moderate focal aortic valve calcification. Small pericardial effusion. There are no echocardiographic indications of cardiac tamponade. Right ventricular systolic pressure estimated to be 31 mmHg. Diastolic function is indeterminate. ICD or pacer leads identified within the right atrium ICD or pacer leads identified within the right ventricle. Transthoracic echocardiogram: 01-13-2022 Interpretation Summary The estimated ejection fraction is 10-15 %. Severe LV systolic Dysfunction with global LV hypokinesia Moderate MR ICD leads noted on R.side Small pericardial effuion with no haemodynmic effect No significant changes from previous Echo january 2021 Cardiac catheterization: 01-31-21 CONCLUSIONS Elevated Left Ventricular End Diastolic Pressure (mild) Segmented LV systolic dysfunction- Severe LVEF: by LV gram 15 % Resighini Multivessel CAD Left to Right Collateral Flow RECOMMENDATIONS Risk factor modification Medical therapy Surgery consult for coronary revascularization DESCRIPTION OF PROCEDURE The patient arrived to the procedure lab. The risks and benefits of the procedure as well as a full description of our services here and current unavailability of surgical backup were fully explained to the patient and/or their significant other prior to the catheterization. The Timeout was completed, verifying the correct patient and procedure. The patient's procedural site was prepped and draped in the usual fashion. Local anesthetic was given subcutaneously to right radial region with Lidocaine 2%. Using a modified Seldinger technique, arterial access was obtained via the right radial artery, a 6Fr sheath was inserted. Right Coronary Artery selective angiography was then performed in multiple views using a 5 Fr. 4.0 [place] catheter. Left Coronary Artery selective angiography was performed in multiple views using a 5 Fr. 4.0 [place] catheter. Left Ventriculography was performed in VICTORIA projection using a 5 Fr. Pigtail catheter. LV to AO pullback pressures were then recorded.The arterial sheath was pulled and a TR Band was applied for hemostasis 12cc air CORONARY ANGIOGRAPHY DOMINANCE: Right Dominant LEFT HEART ASSESSMENT Left Ventricular Ejection Fraction: by LV Gram 15 % Anterior Hypokinesis - Severe. Inferior Basal Hypokinesis - Severe. Inferior Mid Akinesis. Apical Akinesis Elevated Left Ventricular End Diastolic Pressure LVEDP: 14 mmHg LEFT MAIN: Mild calcification, distal: 50 % Stenosis LEFT ANTERIOR DESCENDING ARTERY: PROX LAD: Moderate calcification, 99 % Stenosis MID LAD: Moderate calcification DISTAL LAD: 99 % Stenosis CIRCUMFLEX ARTERY: Mild luminal irregularities, diffuse: 25 % Stenosis OM 1: Proximal - 25 % Stenosis RAMUS: Mild luminal irregularities, 75 % Stenosis RIGHT CORONARY ARTERY: Mild calcification Mild luminal irregularities MID RCA: irregular: 85 % Stenosis DISTAL RCA: eccentric: 25 % Stenosis, 99 % Stenosis COLLATERAL FLOW: Collateral flow from Left to Right AORTIC ROOT: Angiographically normal Radiography Diagnostic Testing: Radiology Impression Chest X-Ray 01/25/22 19:44 IMPRESSION: Pulmonary findings appear worse. Electronically Signed: Sundeep Gomez MD at 19:59 EDT ,
[2022-01-26] MEDS: Multivitamins,Therapeutic Tablet 1 TABLET PO (09:30)
[2022-01-26] MEDS: Spironolactone 25 MG Tablet 12.5 MG PO (09:30)
[2022-01-26] MEDS: Carvedilol 3.125 MG TABLET PO ×2 (09:32→21:40)
[2022-01-26] MEDS: Aspirin E.C. 81 MG Tablet PO (09:32)
[2022-01-26] MEDS: Isosorbide DN 10 MG Tablet 5 MG PO (09:33)
[2022-01-26] MEDS: Enoxaparin 60 MG/0.6 ML Syringe 50 MG SC ×2 (09:36→21:40)
[2022-01-26] MEDS: Bumetanide 1 MG/4 ML Vial 2 MG IV (09:36)
[2022-01-26] MEDS: 0.9% Saline Lock 10 ML Syringe IV (09:39)
[2022-01-26] MEDS: Isosorbide DN 10 MG Tablet PO ×2 (09:46→13:18)
--- NOTE | 2022-01-26 12:41 | PN.HOSP_ITS ---
Documented by User: Lavinia Christensen NP, [employer] 01/26/22 12:51 Subjective Subjective Patient seen and examined. Reports improvement in breathing. Denies chest pain. Remains on supplemental oxygen. Denies other symptoms or complaints. Objective Data Objective Data Vital Signs: Vital Signs Temp Pulse Resp BP Pulse Ox 97.7 F L 85 18 110/66 98 01/26/22 09:30 01/26/22 11:00 01/26/22 09:30 01/26/22 09:30 01/26/22 09:30 Oxygen Flow Rate (L/min) 2 Oxygen Delivery Method Nasal Cannula Weight: 119 lb 0.794 oz Body Mass Index (BMI) 22.4 Intake & Output: Intake and Output for Last 24 Hours 01/24/22 01/25/22 01/26/22 23:59 23:59 23:59 Intake Total 720 / 720 340 / 340 Output Total 1100 / 1100 2675 / 2675 Balance -380 / -380 -2335 / -2335 Lab / Micro Data Result Diagrams: 01/26/22 05:10 01/26/22 05:10 Labs: Laboratory Results - last 24 hr 01/25/22 19:30: WBC 8.9, RBC 4.79, Hgb 14.8, Hct 45.8, MCV 95.6, MCH 30.9, MCHC 32.3, RDW Std Deviation 49.3 H, RDW Coeff of Toby 14.1, Plt Count 276, MPV 11.5, Immature Gran % (Auto) 0.300, Neut % (Auto) 78.9 H, Lymph % (Auto) 13.9 L, Bowie % (Auto) 4.5, Eos % (Auto) 1.6, Baso % (Auto) 0.8, Absolute Neuts (auto) 7.1, Absolute Lymphs (auto) 1.24, Nucleated RBC % 0 01/25/22 19:30: Sodium 132 L, Potassium 4.8, Chloride 99, Carbon Dioxide 25.0, Anion Gap 8, BUN 19 H, Creatinine 1.15 H, Estim Creat Clear Calc 33.86, Est GFR (MDRD) Af Amer 60, Est GFR (MDRD) Non-Af 49 L, BUN/Creatinine Ratio 16.5, Glucose 288 H, Calcium 9.3, Troponin I High Sens 41 01/25/22 19:30: B-Natriuretic Peptide 3319.4 H 01/25/22 19:30: Lactic Acid 4.4 H* 01/25/22 21:17: Magnesium 2.0 01/25/22 21:17: Procalcitonin 0.07 01/25/22 21:17: Troponin I High Sens 154 H* 01/26/22 01:03: Troponin I High Sens 1709 H* 01/26/22 01:03: Lactic Acid 0.7 01/26/22 05:10: WBC 7.4, RBC 4.24, Hgb 13.2, Hct 38.8, MCV 91.5, MCH 31.1, MCHC 34.0 D, RDW Std Deviation 45.4 H, RDW Coeff of Toby 13.6, Plt Count 233, MPV 10.3, Immature Gran % (Auto) 0.400, Neut % (Auto) 74.6 H, Lymph % (Auto) 16.6 L, Bowie % (Auto) 7.7, Eos % (Auto) 0.4, Baso % (Auto) 0.3, Absolute Neuts (auto) 5.6, Absolute Lymphs (auto) 1.23, Nucleated RBC % 0 01/26/22 05:10: Sodium 138, Potassium 3.6, Chloride 103, Carbon Dioxide 32.0, Anion Gap 3 L, BUN 19 H, Creatinine 0.71, Estim Creat Clear Calc 38.94, Est GFR (MDRD) Af Amer 104, Est GFR (MDRD) Non-Af 86, BUN/Creatinine Ratio 26.8 H, Glucose 100, Calcium 8.1 L, Total Bilirubin 0.60, AST 47 H, ALT 64 H, Alkaline Phosphatase 116, Total Protein 6.0 L, Albumin 3.0 L, Globulin 3.0, Albu min/Globulin Ratio 1.0 01/26/22 05:10: Hemoglobin A1c 5.8 H Micro: Microbiology 01/25/22 19:40 Mucosa - Nasopharyngeal Influenza Types A,B Direct FA (CAROL) - Final ABG Data ABG results: ABG 01/25/22 19:41 Specimen Type ART Sample Site R Radial pH 7.24 L Bicarbonate Actual 21.6 L Total CO2 23 Base Excess -6 L O2 Saturation 100 H O2 % 80 ABG pCO2 50.2 H ABG pO2 275 H Carroll Test Positive O2 Delivery Device BiPAP Clinical Comments bipap 16/8 80% Radiography Diagnostic Testing: Radiology Impression Chest X-Ray 01/25/22 19:44 IMPRESSION: Pulmonary findings appear worse. Electronically Signed: Sundeep Gomez MD at 19:59 EDT Reading Location ID and State: [facility] / [place] , Service support , Rhythm Strip Rhythm Strip: Sinus Tach Rate: 116 Ectopy: None Physical Exam Const alert, oriented x3 and no apparent distress Orientation / Consciousness: awake, oriented to person, oriented to place and oriented to time HEENT normocephalic and moist oral mucous membranes Eyes PERRL, EOMs intact bilaterally and conjunctivae normal Neck no lymphadenopathy Resp clear to auscultation bilaterally Auscultation: diminished lung sounds Cardio regular rate, regular rhythm and no murmurs Peripheral Pulses: pulses 2+ throughout GI normal to inspection, nondistended, normoactive bowel sounds, non-tender and non-distended Extremity normal to inspection General Extremity: edema bilateral lower extremity Details: trace Skin no rashes or lesions noted Lesions: no lesions Rashes: no rashes Trauma: no lacerations or abrasions Neuro CN's II-XII intact bilaterally, no focal motor deficits, no sensory deficits noted and deep tendon reflexes 2+ bilaterally Psych mental status grossly normal and affect normal Assessment & Plan Assessment/Plan (1) CHF exacerbation: QUALIFIERS: Heart failure type: systolic Qualified Code(s): I50.23 - Acute on chronic systolic (congestive) heart failure PLAN: 1. Acute hypoxic and hypercarbic respiratory failure secondary to acute heart failure with reduced ejection fraction/ischemic cardiomyopathy- initially placed on BiPAP. Continue supplemental oxygen to maintain O2 above 90%, wean as tolerated. Recent echo 01/13/2022 with EF 16%. Continue IV Bumex. Strict I&O. Daily weight. Cardiology following. ICD in place. Home oxygen testing prior to discharge. 2. NSTEMI-likely type II secondary to #1. Recent cardiovascular evaluation, not a candidate for revascularization or LVAD. Cardiology following as noted above. 3. Extensive CAD-Per cardiology, not a candidate for revascularization therapy. Evaluated extensively at [facility]. Continue medical management. 4. Prediabetes-hemoglobin A1c 5.8%. Encouraged dietary modifications 5. Hypertension-continue Coreg, spironolactone, hydralazine, isosorbide. 6. Hyperlipidemia-statin allergy. 7. Anxiety/depression-on sertraline. 8. Former tobacco use-encouraged continued cessation. DVT prophylaxis- SCDs, Lovenox sc This patient was seen by KEREN Abernathy under the supervision of Dr. Gibbs. Time spent examining patient, reviewing data and subsequent management of care: 13 Minutes Documented by User: Dr. Divine Gibbs MD 01/26/22 14:42 Objective Data Lab / Micro Data Result Diagrams: 01/26/22 05:10 01/26/22 05:10 Charges/Coding Addendum Addendum: Patient seen by Lavinia MARTINEZC under my supervision Patient seen and examined. He says she was feeling better today. Her shortness of breath improved. She had no other active complaints and review of systems otherwise negative. O/E: Const alert, oriented x3 and no apparent distress Orientation / Consciousness: awake, oriented to person, oriented to place and oriented to time HEENT normocephalic and moist oral mucous membranes Eyes PERRL, EOMs intact bilaterally and conjunctivae normal Neck no lymphadenopathy Resp clear to auscultation bilaterally Auscultation: diminished lung sounds Cardio regular rate, regular rhythm and no murmurs Peripheral Pulses: pulses 2+ throughout GI normal to inspection, nondistended, normoactive bowel sounds, non-tender and non-distended Extremity normal to inspection General Extremity: edema bilateral lower extremity Details: trace Skin no rashes or lesions noted Lesions: no lesions Rashes: no rashes Trauma: no lacerations or abrasions Neuro CN's II-XII intact bilaterally, no focal motor deficits, no sensory deficits noted and deep tendon reflexes 2+ bilaterally Psych mental status grossly normal and affect normal Assessment and plan #Acute hypoxic and hypercapnic respiratory failure due to acute HFrEF * now off BIPAP * has known EF of 16% * on IV bumex * cardiology on board * monitor intake and output; fluid restriction to 1500cc daily * has an ICD in place * #Nonstemi * cardiology on board. * was recently admitted for similar symptoms and was deemed as not a candidate for revascularization or LVAD * #History of CAD: * not a candidate for revscularisation. On medical management. Has been worked up extensively at [facility], including cardiac PET scan which showed a large scar and no evidence of hibernation. NOt a candidate for multivessel PCi, CABG or #Hypertension: on coreg, spironolactone, imdur and hydralazine #Hyperlipidemia: not on statin due to allergies #Anxiety and depression; on sertraline #Impaired glucose tolerance; A1C is 5.8%. dietary and lifestyle modifications encouraged. DVT prophylaxis: lovenox Rest as per Lavinia Christensen [employer]'s note, which I have reviewed and endorsed Total time spent on the care of the patient today by me is 20 minutes with Lavinia Christensen spending 13 minutes making a total of 33 minutes. Visit Charges Inpatient E&M: 32549 Subs Hosp L2
--- NOTE | 2022-01-26 15:59 | CASEMGMT ---
FRANK OWENS Chart review: Patient was admitted 01/12-01/15/22 for CHF exacerbation. See RN GRACIELA assessment from 01/12/22. Patient was discharged to home with changes in diuretic medications and to follow-up with [facility]. Patient has appt with [facility] on 02/21/22. Patient returned to [facility] ED for increased SOB. Per EMS Spo2 at home was found to be 85% on room air. Per H&P, patient took x1 dose of Bumex 2mg as instructed for weight gain but continued to have SOB. Patient does not have PCP. Per chart patient is active with [facility], will follow-up. CM to assist patient with getting established with PCP and following up with [facility] and [facility]. Will monitor for need for home oxygen at discharge.
[2022-01-26] MEDS: Sertraline 50 MG Tablet 25 MG PO (21:39)
[2022-01-26] MEDS: MELATONIN 3 MG TABLET PO (21:40)
[2022-01-27] VITALS (15 sets, daily range): BP systolic 98–121; BP diastolic 68–82; PULSE 70–94; RESP 18–20; TEMP 35.6–37.1; O2SAT 88–97
[2022-01-27 05:01] LABS: Absolute Lymphocyte Count 1.51 X10^3/uL (0.83-4.51); Absolute Neutrophil Count 5.3 X10^3/uL (2.0-7.7); Basophil# 0.07 X10^3/uL; Basophil% 0.9 % (0-1); Eosinophil# 0.22 X10^3/uL; Eosinophils% 2.8 % (0-5); Hematocrit 43.7 % (37-47); Hemoglobin 14.3 g/dL (12.0-15.0); Lymphocyte # 1.51 X10^3/ul (0.83-4.51); Lymphocyte % 19.5 % (19-41); Mean Corp Hgb Conc 32.7 g/dL (32-36); Mean Corpuscular Hgb 30.7 pg (27.0-32.0); Mean Corpuscular Volume 93.8 fL (81-99); Mean Platelet Vol. 10.1 fl (6.2-12.0); Monocyte# 0.64 X10^3/uL; Monocyte% 8.3 % (0-10); NRBC Flagged by Analyzer 0 % (0-5); Neutrophil # 5.28 X10^3/uL (2.7-7.7); Neutrophil % 68.2 % (47-70); Platelet Count 265 K/mm3 (150-450); RBC Distribution Width CV 13.9 % (11.6-14.6); Red Blood Count 4.66 M/mm3 (4.2-5.4); White Blood Count 7.7 K/mm3 (4.4-11.0)
[2022-01-27] MEDS: hydrALAZINE 10 MG Tablet PO ×2 (05:20→21:04)
[2022-01-27 05:32] LABS: Anion Gap 2 (5-15); BUN 26 mg/dL (7-18); BUN/Creat Ratio 28.3 RATIO (10-20); Calcium,Total 8.7 mg/dL (8.5-10.1); Chloride 103 mmol/L (98-107); Creatinine, Serum 0.92 mg/dL (0.55-1.02); EST Glomerular Filtration Rate 64 mL/min (>60); Est Glom Filt Rate - Afr Amer 77 mL/min (>60); Estimated Creatinine Clearance 42.32 ml/min; Glucose 111 mg/dL (74-106); Potassium 3.6 mmol/L (3.5-5.1); Sodium Level 141 mmol/L (136-145)
--- NOTE | 2022-01-27 08:45 | PN.CARD_ITS ---
Subjective Subjective The patient believes she is breathing better today although not back to her normal . Objective Data Vital Signs: Vital Signs Temp Pulse Resp BP Pulse Ox 96.9 F L 79 18 111/75 97 01/27/22 05:21 01/27/22 07:00 01/27/22 05:21 01/27/22 05:21 01/27/22 05:21 Oxygen Flow Rate (L/min) 1 Oxygen Delivery Method Nasal Cannula Weight: 113 lb 8.609 oz Body Mass Index (BMI) 22.4 Intake & Output: Intake and Output for Last 24 Hours 01/25/22 01/26/22 01/27/22 23:59 23:59 23:59 Intake Total 720 / 720 580 / 580 Output Total 1100 / 1100 4200 / 4200 400 / 400 Balance -380 / -380 -3620 / -3620 -400 / -400 Lab / Micro Data Result Diagrams: 01/27/22 04:50 01/27/22 04:50 Labs: Laboratory Results - last 24 hr 01/27/22 04:50: WBC 7.7, RBC 4.66, Hgb 14.3, Hct 43.7, MCV 93.8, MCH 30.7, MCHC 32.7, RDW Std Deviation 48.0 H, RDW Coeff of Toby 13.9, Plt Count 265, MPV 10.1, Immature Gran % (Auto) 0.300, Neut % (Auto) 68.2, Lymph % (Auto) 19.5, Sullivan % (Auto) 8.3, Eos % (Auto) 2.8, Baso % (Auto) 0.9, Absolute Neuts (auto) 5.3, Absolute Lymphs (auto) 1.51, Nucleated RBC % 0 01/27/22 04:50: Sodium 141, Potassium 3.6, Chloride 103, Carbon Dioxide 36.0 H, Anion Gap 2 L, BUN 26 H, Creatinine 0.92, Estim Creat Clear Calc 42.32, Est GFR (MDRD) Af Amer 77, Est GFR (MDRD) Non-Af 64, BUN/Creatinine Ratio 28.3 H, Glucose 111 H, Calcium 8.7 Rhythm Strip Rhythm Strip: Sinus Tach Rate: 116 Ectopy: None Cardiology Labs/Tests 01/27/22 04:50: WBC 7.7, RBC 4.66, Hgb 14.3, Hct 43.7, MCV 93.8, MCH 30.7, MCHC 32.7, Plt Count 265, MPV 10.1, Immature Gran % (Auto) 0.300, Neut % (Auto) 68.2, Lymph % (Auto) 19.5, Sullivan % (Auto) 8.3, Eos % (Auto) 2.8, Baso % (Auto) 0.9, Absolute Neuts (auto) 5.3, Nucleated RBC % 0 01/27/22 04:50: Sodium 141, Potassium 3.6, Chloride 103, Carbon Dioxide 36.0 H, Anion Gap 2 L, BUN 26 H, Creatinine 0.92, Est GFR (MDRD) Af Amer 77, Est GFR (MDRD) Non-Af 64, BUN/Creatinine Ratio 28.3 H, Glucose 111 H, Calcium 8.7 Rhythm: Electronic ventricular paced rhythm; nonsustained wide-complex tachycardia Physical Exam Const alert, oriented x3 and no apparent distress Orientation / Consciousness: awake HEENT normocephalic, head/scalp atraumatic and hearing grossly normal bilaterally Eyes PERRL, EOMs intact bilaterally and conjunctivae normal Neck full ROM, supple and no JVD Chest Chest: left pectoral incision Resp Auscultation: diminished lung sounds bilateral lower Cardio regular rate, regular rhythm, S1 normal heart sound and S2 normal heart sound Heart Sounds: gallop S3 gallop and S4 gallop and abnormal sounds GI normal to inspection, nondistended, normoactive bowel sounds Extremity no pedal edema Skin no rashes or lesions noted Neuro oriented x3, moves all extremities, no focal motor deficits and no sensory deficits noted Psych mental status grossly normal Assessment & Plan Assessment/Plan (1) Non-ST elevation (NSTEMI) myocardial infarction: PLAN: The patient has elevated high-sensitivity troponin I levels, as she has done in the past, compatible with an acute non-ST segment elevation MT. At the present time this would be concerning for a type II event brought out by her acute on chronic systolic mediated CHF. She has undergone extensive noninvasive and invasive cardiovascular evaluation locally and at [facility] as noted. She has been deemed a candidate for conservative medical therapy and not a candidate for revascularization therapy, LVAD therapy, cardiac transplantation, etc. Thus at the present time she will continue conservative medical management with adjustment of medicines as deemed appropriate. (2) CHF exacerbation: QUALIFIERS: Heart failure type: systolic Qualified Code(s): I50.23 - Acute on chronic systolic (congestive) heart failure PLAN: The patient has recurrent acute on chronic systolic mediated CHF. She has undergone previous extensive noninvasive and invasive evaluation as noted including a recent transthoracic echocardiogram. She will need to continue medical management with IV diuretics with continued follow-up of her clinical status/volume status and additional objective follow- up with chest x-ray. (3) CAD (coronary artery disease): PLAN: The patient has extensive CAD. Again she has undergone extensive evaluation for this and has been deemed not a candidate for revascularization therapy. (4) Cardiomyopathy, ischemic: PLAN: The patient's ischemic cardiomyopathy has been evaluated extensively at [facility]. Based upon the aforementioned studies she was deemed not a candidate for additional therapy such as LVAD therapy or to be considered a candidate for cardiac transplantation. She was deemed a candidate for continued conservative medical management. Thus she will continue medical therapy as tolerated. (5) ICD (implantable cardioverter-defibrillator) in place: PLAN: The patient has an ICD in place. Her ICD has been reported is functioning appropriately. It has been reported as noting episodes of nonsustained ventricular tachycardia. Based upon the interrogation it did appear that she had a shock delivered on 01-25-2022. She will be initiated on antiarrhythmic therapy with amiodarone therapy and attempt to help minimize her ventricular ectopy and subsequent ICD defibrillations. As she appears to be quite sensitive to various medications and their doses she will start with low-dose once a day amiodarone at 200 mg. (6) HTN (hypertension): PLAN: The patient's blood pressure will be monitored and taken into consideration with adjustment of her medications. Addt'l Comments Overall, at the present time, the patient does appear to be having gradual improvement in her volume status. She will continue IV diuretic therapy with follow-up of her clinical status by examination and objective follow-up with future chest x-ray. Once it appears that she is back to a more euvolemic state then she can be transitioned back to oral diuretic therapy with the hopes of continued outpatient follow-up. The above was discussed and reviewed with her at length. This note was generated using a voice recognition system and there may be incorrect words, spelling or punctuation that were not noted when reviewing the office note prior to saving.
[2022-01-27] MEDS: Multivitamins,Therapeutic Tablet 1 TABLET PO (09:00)
[2022-01-27] MEDS: Spironolactone 25 MG Tablet 12.5 MG PO (09:00)
[2022-01-27] MEDS: Carvedilol 3.125 MG TABLET PO ×2 (09:01→21:04)
[2022-01-27] MEDS: Isosorbide DN 10 MG Tablet 5 MG PO ×3 (09:02→21:05)
[2022-01-27] MEDS: Aspirin E.C. 81 MG Tablet PO (09:02)
[2022-01-27] MEDS: Amiodarone 200 MG Tablet PO (09:05)
[2022-01-27] MEDS: Enoxaparin 60 MG/0.6 ML Syringe 50 MG SC ×2 (09:06→21:05)
[2022-01-27] MEDS: Bumetanide 1 MG/4 ML Vial 2 MG IV (09:08)
[2022-01-27] MEDS: 0.9% Saline Lock 10 ML Syringe IV (09:09)
--- NOTE | 2022-01-27 11:30 | CPS ---
BiPap machine removed from room, patient agreeable.
--- NOTE | 2022-01-27 12:42 | PN.HOSP_ITS ---
Documented by User: Lavinia Christensen NP, [employer] 01/27/22 12:49 Subjective Subjective Patient seen and examined. Reports her breathing does not yet feel at baseline. States at times she has difficulty taking a deep breath and still feels like there is fluid in her lungs. Denies chest pain or other symptoms or complaints. Objective Data Objective Data Vital Signs: Vital Signs Temp Pulse Resp BP Pulse Ox 98.5 F 83 18 121/77 H 93 01/27/22 08:55 01/27/22 11:00 01/27/22 08:55 01/27/22 08:55 01/27/22 08:55 Oxygen Flow Rate (L/min) 1 Oxygen Delivery Method Room Air Weight: 113 lb 8.609 oz Body Mass Index (BMI) 22.4 Intake & Output: Intake and Output for Last 24 Hours 01/25/22 01/26/22 01/27/22 23:59 23:59 23:59 Intake Total 720 / 720 580 / 580 Output Total 1100 / 1100 4200 / 4200 400 / 400 Balance -380 / -380 -3620 / -3620 -400 / -400 Lab / Micro Data Result Diagrams: 01/27/22 04:50 01/27/22 04:50 Labs: Laboratory Results - last 24 hr 01/27/22 04:50: WBC 7.7, RBC 4.66, Hgb 14.3, Hct 43.7, MCV 93.8, MCH 30.7, MCHC 32.7, RDW Std Deviation 48.0 H, RDW Coeff of Toby 13.9, Plt Count 265, MPV 10.1, Immature Gran % (Auto) 0.300, Neut % (Auto) 68.2, Lymph % (Auto) 19.5, Fallon % (Auto) 8.3, Eos % (Auto) 2.8, Baso % (Auto) 0.9, Absolute Neuts (auto) 5.3, Absolute Lymphs (auto) 1.51, Nucleated RBC % 0 01/27/22 04:50: Sodium 141, Potassium 3.6, Chloride 103, Carbon Dioxide 36.0 H, Anion Gap 2 L, BUN 26 H, Creatinine 0.92, Estim Creat Clear Calc 42.32, Est GFR (MDRD) Af Amer 77, Est GFR (MDRD) Non-Af 64, BUN/Creatinine Ratio 28.3 H, Glucose 111 H, Calcium 8.7 Micro: Microbiology 01/25/22 19:40 Mucosa - Nasopharyngeal Influenza Types A,B Direct FA ([facility]) - Final Rhythm Strip Rhythm Strip: Sinus Tach Rate: 116 Ectopy: None Physical Exam Const alert, oriented x3 and no apparent distress Orientation / Consciousness: awake, oriented to person, oriented to place and oriented to time HEENT normocephalic and moist oral mucous membranes Eyes PERRL, EOMs intact bilaterally and conjunctivae normal Neck no lymphadenopathy Resp Auscultation: crackles bilateral base and diminished lung sounds Cardio regular rate, regular rhythm and no murmurs Peripheral Pulses: pulses 2+ throughout GI normal to inspection, nondistended, normoactive bowel sounds, non-tender and non-distended Extremity normal to inspection General Extremity: edema bilateral lower extremity Details: trace Skin no rashes or lesions noted Lesions: no lesions Rashes: no rashes Trauma: no lacerations or abrasions Neuro CN's II-XII intact bilaterally, no focal motor deficits, no sensory deficits noted and deep tendon reflexes 2+ bilaterally Psych mental status grossly normal and affect normal Assessment & Plan Assessment/Plan (1) Non-ST elevation (NSTEMI) myocardial infarction: (2) CHF exacerbation: QUALIFIERS: Heart failure type: systolic Qualified Code(s): I50.23 - Acute on chronic systolic (congestive) heart failure PLAN: 1. Acute hypoxic and hypercarbic respiratory failure secondary to acute heart failure with reduced ejection fraction/ischemic cardiomyopathy- initially placed on BiPAP. Continue supplemental oxygen to maintain O2 above 90%, wean as tolerated. Recent echo 01/13/2022 with EF 16%. Continue IV Bumex. Strict I&O. Daily weight. Cardiology following. ICD in place. Home oxygen testing prior to discharge. Continue diuresis, possible DC 01/28/22 if continued improvement. 2. NSTEMI-likely type II secondary to #1. Recent cardiovascular evaluation, not a candidate for revascularization or LVAD. Cardiology following as noted above. 3. Extensive CAD-Per cardiology, not a candidate for revascularization therapy. Evaluated extensively at [facility]. Continue medical management. 4. Nonsustained ventricular tachycardia-shocks delivered 01/25/22. Initiated on amiodarone. 5. Prediabetes-hemoglobin A1c 5.8%. Encouraged dietary modifications 6. Hypertension-continue Coreg, spironolactone, hydralazine, isosorbide. 7. Hyperlipidemia-statin allergy. 8. Anxiety/depression-on sertraline. 9. Former tobacco use-encouraged continued cessation. DVT prophylaxis- Arron Tinajerox estelita This patient was seen by KEREN Abernathy under the supervision of Dr. Gibbs. Time spent examining patient, reviewing data and subsequent management of care: 12 Minutes Documented by User: Dr. Divine Gibbs MD 01/27/22 13:16 Objective Data Lab / Micro Data Result Diagrams: 01/27/22 04:50 01/27/22 04:50 Charges/Coding Addendum Addendum: Patient seen by Lavinia VELIZ under my supervision Patient seen and examined. She says she did feel better than she did yesterday. She had no active complaints and had an uneventful night. Review of systems otherwise negative. O/E: Const alert, oriented x3 and no apparent distress Orientation / Consciousness: awake, oriented to person, oriented to place and oriented to time HEENT normocephalic and moist oral mucous membranes Eyes PERRL, EOMs intact bilaterally and conjunctivae normal Neck no lymphadenopathy Resp clear to auscultation bilaterally Auscultation: diminished lung sounds Cardio regular rate, regular rhythm and no murmurs Peripheral Pulses: pulses 2+ throughout GI normal to inspection, nondistended, normoactive bowel sounds, non-tender and non-distended Extremity normal to inspection General Extremity: edema bilateral lower extremity Details: trace Skin no rashes or lesions noted Lesions: no lesions Rashes: no rashes Trauma: no lacerations or abrasions Neuro CN's II-XII intact bilaterally, no focal motor deficits, no sensory deficits noted and deep tendon reflexes 2+ bilaterally Psych mental status grossly normal and affect normal Assessment and plan #Acute hypoxic and hypercapnic respiratory failure due to acute HFrEF * off BIPAP. on IV bumex * ICD in place * monitor intake and output. Fluid restriction to 1500cc daily * ICD in place due to low EF of 16% * * #Nonstemi * cardiology on board. * was recently admitted for similar symptoms and was deemed as not a candidate for revascularization or LVAD * #History of CAD: * not a candidate for revascularisation. On medical management. * Has been worked up extensively at [facility], including cardiac PET scan which showed a large scar and no evidence of hibernation. * NOt a candidate for multivessel PCi, CABG #Nonsustained V. tach * ICD was interrogated and reported as having episodes of nonsustained V. tach. The patient had a shock delivered on 01/25/2022 per the interrogation * Patient started on p.o. amiodarone per cardiology. * #Hypertension: on coreg, spironolactone, imdur and hydralazine #Hyperlipidemia: not on statin due to allergies #Anxiety and depression; on sertraline #Impaired glucose tolerance; A1C is 5.8%. dietary and lifestyle modifications encouraged. DVT prophylaxis: lovenox Rest as per Lavinia Christensen [employer]'s note, which I have reviewed and endorsed Total time spent on the care of the patient today by me is 20 minutes with Lavinia Christensen spending 12 minutes making a total of 32 minutes. Visit Charges Inpatient E&M: 91293 Subs Hosp L2
--- NOTE | 2022-01-27 14:31 | CASEMGMT ---
Addendum entered by Ita Escoto 01/27/22 14:37: Call to [facility] and they state pt is active with them at this time. They would like H&P and D/C summ faxed on day of d/c. Contact number is ph: [phone], fax: [phone]. This was added to green sheet. Palma MARIE CM Original Note: Pt states no preference for DME company, if qualifies for home oxygen at discharge. Green sheet left on chart. Palma MARIE CM
[2022-01-27] MEDS: MELATONIN 3 MG TABLET PO (21:05)
[2022-01-27] MEDS: Sertraline 50 MG Tablet 25 MG PO (21:11)
[2022-01-28] VITALS (8 sets, daily range): BP systolic 101–116; BP diastolic 65–84; PULSE 73–83; RESP 16–18; TEMP 36.4–36.6; O2SAT 94–98
[2022-01-28] MEDS: hydrALAZINE 10 MG Tablet PO (06:01)
[2022-01-28 07:09] LABS: Anion Gap 2 (5-15); BUN 29 mg/dL (7-18); BUN/Creat Ratio 32.3 RATIO (10-20); Calcium,Total 8.7 mg/dL (8.5-10.1); Chloride 104 mmol/L (98-107); EST Glomerular Filtration Rate 66 mL/min (>60); Est Glom Filt Rate - Afr Amer 79 mL/min (>60); Estimated Creatinine Clearance 43.26 ml/min; Glucose 89 mg/dL (74-106); Sodium Level 141 mmol/L (136-145)
--- NOTE | 2022-01-28 07:57 | RAD_ITS ---
STUDY: X-RAY CHEST REASON FOR EXAM: Female, 71 years old. Chest pain/pressure TECHNIQUE: PA and lateral views of the chest. COMPARISON: 01/25/2022 FINDINGS: EKG leads overlie the chest. Stable appearance of the left subclavian pacemaker. Lungs are mildly hyperexpanded. Previously described interstitial edema has resolved but there are stable bilateral pleural effusions. There is likely associated atelectasis. Sternal cerclage wires and vascular clips are present from a prior sternotomy and coronary artery bypass graft procedure (CABG). Normal mediastinum and sp. Normal visualized pulmonary arteries. There is atherosclerotic calcification of the aortic arch with tortuosity. There are diffuse degenerative changes of the visualized thoracic spine. There is degenerative osteoarthritis of the bilateral shoulders. There is no demonstrated abnormality of the visualized soft tissue structures of the upper abdomen. RAD/Chest PA and Lateral IMPRESSION: Resolution of the previous noted diffuse interstitial edema in both lung greenwood. However, there are stable bilateral pleural effusions with likely associated atelectasis. Continued follow-up recommended to assure resolution Electronically Signed: Pratik Stovall MD at 8:39 EDT ,
[2022-01-28] MEDS: Aspirin E.C. 81 MG Tablet PO (10:15)
[2022-01-28] MEDS: Multivitamins,Therapeutic Tablet 1 TABLET PO (10:15)
[2022-01-28] MEDS: Amiodarone 200 MG Tablet PO (10:15)
[2022-01-28] MEDS: Carvedilol 3.125 MG TABLET PO (10:15)
[2022-01-28] MEDS: Bumetanide 1 MG/4 ML Vial 2 MG IV (10:15)
[2022-01-28] MEDS: Spironolactone 25 MG Tablet 12.5 MG PO (10:16)
[2022-01-28] MEDS: Isosorbide DN 10 MG Tablet 5 MG PO (11:42)
--- NOTE | 2022-01-28 12:08 | DCINST_ITS ---
Discharge Instructions Diet Discharge Diet: Low fat / Low cholesterol, 8 Cup Fluid Restriction and 2000 mg Sodium Diet Activity Discharge Activity: Return to Normal Activity Dressing / Incision Call your doctor if you observe: Shortness of breath, Dizziness and Chest pain Follow Up Care Test Results: Test results from this visit will be discussed in further detail at your follow-up appointment, if applicable. Discharge Plan Admission Admit Date/Time: 01/25/22 20:42 Primary Reason for Your Visit: CHF Attending Provider: Divine Gibbs Primary Care Provider: Care Physician,No Primary Consulting Providers: Kelly Roberts Instructions Additional Instructions / Restrictions: Weigh yourself daily. If you gain greater than 2 pounds, use as needed metolazone as previously ordered. Discharge Orders/Prescriptions Prescriptions: New amiodarone 200 mg Tablet 200 mg PO DAILY 30 Days Qty: 30 RF: 0 bumetanide 2 mg tablet 2 mg PO DAILY Qty: 30 RF: 0 Continued acetaminophen 325 mg tablet 325 mg PO ONCE PRN (Reason: Pain) RF: 0 isosorbide dinitrate 5 mg tablet 5 mg PO TID RF: 0 multivitamin Tablet 1 tab PO DAILY RF: 0 hydralazine 10 mg Tablet 10 mg PO TID RF: 0 spironolactone 25 mg tablet 12.5 mg PO DAILY RF: 0 aspirin 81 MG tablet,delayed release (DR/EC) 81 mg PO DAILY RF: 0 Hold Instructions: Bruising carvedilol 3.125 mg tablet 3.125 mg PO BID RF: 0 ondansetron 4 mg tablet,disintegrating 4 mg PO Q6H PRN (Reason: nausea and vomiting) Qty: 10 RF: 0 guaifenesin [Mucinex] 600 mg Tablet Extended Release 12hr 600 mg PO PRN PRN (Reason: Sinus Symptoms) RF: 0 (DME) T.E.D. Knee Hcvxhr-O-Skgz Misc See Rx Instructions .ROUTE .MEDSUPPLY Qty: 12 RF: 0 sertraline 50 mg tablet 25 mg PO QHS RF: 0 metolazone 5 mg Tablet 5 mg PO DAILY PRN PRN (Reason: Weight gain > 2lb) 30 Days Qty: 30 RF: 0 Discontinued spironolactone 25 mg Tablet 12.5 mg PO DAILY RF: 0 Referrals / Follow Up: Care Physician,No Primary [Primary Care Provider] - In 1 Week Mirta Singh PA, PA [PHYSICIAN FRIEND OF THE COURT] - In 1 Week Disposition Disposition (needs filled in before D/C Order can be placed): Home, Self Care
--- NOTE | 2022-01-28 14:08 | PCM.DC.SUM ---
Documented by User: Lavinia Christensen NP, BONDED STRUCTURES REPAIRER-C 01/28/22 14:12 Providers Date of Admission: 01/25/22 Date of Discharge: 01/28/22 Primary Care Physician: Kalpana Primary Care Phys Consultations 01/26/22 07:04 Consult: Cardiology Routine Consulting Provider: Kelly Roberts Reason for Consult: CHF exacerbation EMERGENT Consult: No MD Notified: Yes Date Notified: 01/26/22 Time Notified: 07:04 Method of Notification: Text Comments:: By Dr. Wang Reason For Visit: ACUTE RESPIRATORY FAILURE, CHF EXACERBATION Diagnosis Discharge Diagnosis (1) Non-ST elevation (NSTEMI) myocardial infarction: Status: Acute Code(s): I21.4 - Non-ST elevation (NSTEMI) myocardial infarction (2) CHF exacerbation: Status: Chronic Code(s): I50.9 - Heart failure, unspecified Qualifiers: Heart failure type: systolic Qualified Code(s): I50.23 - Acute on chronic systolic (congestive) heart failure Medications at Discharge Home Medications hydralazine 10 mg PO TID 02/28/21 acetaminophen 325 mg tablet 325 mg PO ONCE PRN 04/21/21 isosorbide dinitrate 5 mg tablet 5 mg PO TID 04/21/21 spironolactone 12.5 mg PO DAILY 04/27/21 aspirin 81 mg PO DAILY 06/12/21 carvedilol 3.125 mg PO BID 06/12/21 ondansetron 4 mg PO Q6H PRN #10 tab 08/16/21 guaifenesin [Mucinex] 600 mg PO PRN PRN 10/27/21 multivitamin 1 tab PO DAILY 11/14/21 T.E.D. Knee Kaqxci-P-Xxom #12 ea 01/12/22 sertraline 25 mg PO QHS 01/12/22 metolazone 5 mg PO DAILY PRN PRN 30 Days #30 tab 01/14/22 amiodarone 200 mg PO DAILY 30 Days #30 tab 01/28/22 bumetanide 2 mg PO DAILY #30 tab 01/28/22 Hospital Course Operations None Procedures None Summary of Care Provided Hospital Course: Patient is a 71-year-old female admitted 01/25/2022 due to shortness of breath. 1. Acute hypoxic and hypercarbic respiratory failure secondary to acute heart failure with reduced ejection fraction/ischemic cardiomyopathy-initially placed on BiPAP. Continue supplemental oxygen to maintain O2 above 90%, wean as tolerated. Recent echo 01/13/2022 with EF 16%. IV Bumex during admission. ICD in place. Recommend continuing Bumex 2 mg daily with additional metolazone for greater than 2 pound weight gain. Patient has been hesitant to be on daily diuretics and states she uses only as needed diuretics. Discussed recommendations and close weight checks with cardiology follow-up. 2. NSTEMI-likely type II secondary to #1. Recent cardiovascular evaluation, not a candidate for revascularization or LVAD. Continue follow-up with cardiology. 3. Extensive CAD-Per cardiology, not a candidate for revascularization therapy. Evaluated [facility] at [facility]. Continue medical management. 4. Nonsustained ventricular tachycardia-shocks delivered 01/25/22. Initiated on amiodarone. 5. Prediabetes-hemoglobin A1c 5.8%. Encouraged dietary modifications 6. Hypertension-continue Coreg, spironolactone, hydralazine, isosorbide. 7. Hyperlipidemia-statin allergy. 8. Anxiety/depression-on sertraline. 9. Former tobacco use-encouraged continued cessation. Physical Exam Const alert, oriented x3 and no apparent distress Orientation / Consciousness: awake, oriented to person, oriented to place and oriented to time HEENT normocephalic and moist oral mucous membranes Eyes PERRL, EOMs intact bilaterally and conjunctivae normal Neck no lymphadenopathy Resp Auscultation: crackles bilateral base and diminished lung sounds Cardio regular rate, regular rhythm and no murmurs Peripheral Pulses: pulses 2+ throughout GI normal to inspection, nondistended, normoactive bowel sounds, non-tender and non-distended Extremity normal to inspection General Extremity: edema bilateral lower extremity Details: trace Skin no rashes or lesions noted Lesions: no lesions Rashes: no rashes Trauma: no lacerations or abrasions Neuro CN's II-XII intact bilaterally, no focal motor deficits, no sensory deficits noted and deep tendon reflexes 2+ bilaterally Psych mental status grossly normal and affect normal Patient seen and examined prior to discharge. Physical assessment as noted above. Patient is stable for discharge with follow up recommendations as noted above. This patient was seen by KEREN Abernathy under the supervision of Dr. Gibbs. Time spent examining patient, reviewing data and subsequent management of care: 16 Minutes Weight / BMI Weight Weight: 108 lb 11.006 oz Body Mass Index (BMI) 22.4 ABG / Lab / Microbiology Data Result Diagrams: 01/27/22 04:50 01/28/22 06:10 Laboratory: Laboratory Results - last 24 hr 01/28/22 06:10: Sodium 141, Potassium 4.0, Chloride 104, Carbon Dioxide 35.0 H, Anion Gap 2 L, BUN 29 H, Creatinine 0.90, Estim Creat Clear Calc 43.26, Est GFR (MDRD) Af Amer 79, Est GFR (MDRD) Non-Af 66, BUN/Creatinine Ratio 32.3 H, Glucose 89, Calcium 8.7 Microbiology: Microbiology 01/25/22 20:10 Blood Culture (Wb) #2 - Anticubital Right Blood Culture - Preliminary No growth in 48 hours. 01/25/22 19:30 Blood Culture (Wb) - Anticubital Right Blood Culture - Preliminary No growth in 48 hours. 01/25/22 19:40 Mucosa - Nasopharyngeal Influenza Types A,B Direct FA (CAROL) - Final Radiography Diagnostic Testing: Radiology Impression Chest X-Ray 01/28/22 07:57 IMPRESSION: Resolution of the previous noted diffuse interstitial edema in both lung greenwood. However, there are stable bilateral pleural effusions with likely associated atelectasis. Continued follow-up recommended to assure resolution Electronically Signed: Pratik Stovall MD at 8:39 EDT Reading Location ID and State: [address] [place] [address] , Service support , D/C Instructions Discharge Diet: Low fat / Low cholesterol, 8 Cup Fluid Restriction and 2000 mg Sodium Diet Call your doctor if you observe: Shortness of breath, Dizziness and Chest pain Meaningful Use Info Meaningful Use Diagnoses (Choose all that apply): CHF CHF FLAVIO/ARB ordered at discharge?: No Reason FLAVIO/ARB not ordered?: Hypotension Documented LVEF (%): 16 Discharge Plan Admission Admit Date/Time: 01/25/22 20:42 Primary Reason for Your Visit: CHF Attending Provider: Divine Gibbs Primary Care Provider: Care Physician,No Primary Consulting Providers: Kelly Roberts Instructions Additional Instructions / Restrictions: Weigh yourself daily. If you gain greater than 2 pounds, use as needed metolazone as previously ordered. Discharge Orders/Prescriptions Prescriptions: New amiodarone 200 mg Tablet 200 mg PO DAILY 30 Days Qty: 30 RF: 0 bumetanide 2 mg tablet 2 mg PO DAILY Qty: 30 RF: 0 Continued acetaminophen 325 mg tablet 325 mg PO ONCE PRN (Reason: Pain) RF: 0 isosorbide dinitrate 5 mg tablet 5 mg PO TID RF: 0 multivitamin Tablet 1 tab PO DAILY RF: 0 hydralazine 10 mg Tablet 10 mg PO TID RF: 0 spironolactone 25 mg tablet 12.5 mg PO DAILY RF: 0 aspirin 81 MG tablet,delayed release (DR/EC) 81 mg PO DAILY RF: 0 Hold Instructions: Bruising carvedilol 3.125 mg tablet 3.125 mg PO BID RF: 0 ondansetron 4 mg tablet,disintegrating 4 mg PO Q6H PRN (Reason: nausea and vomiting) Qty: 10 RF: 0 guaifenesin [Mucinex] 600 mg Tablet Extended Release 12hr 600 mg PO PRN PRN (Reason: Sinus Symptoms) RF: 0 (DME) T.E.D. Knee Serxfp-L-Fgdp Misc See Rx Instructions .ROUTE .MEDSUPPLY Qty: 12 RF: 0 sertraline 50 mg tablet 25 mg PO QHS RF: 0 metolazone 5 mg Tablet 5 mg PO DAILY PRN PRN (Reason: Weight gain > 2lb) 30 Days Qty: 30 RF: 0 Discontinued spironolactone 25 mg Tablet 12.5 mg PO DAILY RF: 0 Referrals / Follow Up: Care Physician,No Primary [Primary Care Provider] - In 1 Week Mirta Singh PA [PHYSICIAN BOWLING BALL FINISHER] - In 1 Week Disposition Disposition (needs filled in before D/C Order can be placed): Home, Self Care Documented by User: Dr. Divine Gibbs MD 01/28/22 16:33 Providers Date of Admission: 01/25/22 Reason For Visit: ACUTE RESPIRATORY FAILURE, CHF EXACERBATION Medications at Discharge Home Medications hydralazine 10 mg PO TID 02/28/21 acetaminophen 325 mg tablet 325 mg PO ONCE PRN 04/21/21 isosorbide dinitrate 5 mg tablet 5 mg PO TID 04/21/21 spironolactone 12.5 mg PO DAILY 04/27/21 aspirin 81 mg PO DAILY 06/12/21 carvedilol 3.125 mg PO BID 06/12/21 ondansetron 4 mg PO Q6H PRN #10 tab 08/16/21 guaifenesin [Mucinex] 600 mg PO PRN PRN 10/27/21 multivitamin 1 tab PO DAILY 11/14/21 T.E.DKetan Knee Dsbxcm-W-Nkqu #12 ea 01/12/22 sertraline 25 mg PO QHS 01/12/22 metolazone 5 mg PO DAILY PRN PRN 30 Days #30 tab 01/14/22 amiodarone 200 mg PO DAILY 30 Days #30 tab 01/28/22 bumetanide 2 mg PO DAILY #30 tab 01/28/22 ABG / Lab / Microbiology Data Result Diagrams: 01/27/22 04:50 01/28/22 06:10 Discharge Plan Admission Admit Date/Time: 01/25/22 20:42 Primary Reason for Your Visit: CHF Attending Provider: Divine Gibbs Primary Care Provider: Care Physician,No Primary Consulting Providers: Kelly Roberts Instructions Additional Instructions / Restrictions: Weigh yourself daily. If you gain greater than 2 pounds, use as needed metolazone as previously ordered. Discharge Orders/Prescriptions Prescriptions: New amiodarone 200 mg Tablet 200 mg PO DAILY 30 Days Qty: 30 RF: 0 bumetanide 2 mg tablet 2 mg PO DAILY Qty: 30 RF: 0 Continued acetaminophen 325 mg tablet 325 mg PO ONCE PRN (Reason: Pain) RF: 0 isosorbide dinitrate 5 mg tablet 5 mg PO TID RF: 0 multivitamin Tablet 1 tab PO DAILY RF: 0 hydralazine 10 mg Tablet 10 mg PO TID RF: 0 spironolactone 25 mg tablet 12.5 mg PO DAILY RF: 0 aspirin 81 MG tablet,delayed release (DR/EC) 81 mg PO DAILY RF: 0 Hold Instructions: Bruising carvedilol 3.125 mg tablet 3.125 mg PO BID RF: 0 ondansetron 4 mg tablet,disintegrating 4 mg PO Q6H PRN (Reason: nausea and vomiting) Qty: 10 RF: 0 guaifenesin [Mucinex] 600 mg Tablet Extended Release 12hr 600 mg PO PRN PRN (Reason: Sinus Symptoms) RF: 0 (DME) T.E.D. Knee Xvvvke-Y-Pqps Misc See Rx Instructions .ROUTE .MEDSUPPLY Qty: 12 RF: 0 sertraline 50 mg tablet 25 mg PO QHS RF: 0 metolazone 5 mg Tablet 5 mg PO DAILY PRN PRN (Reason: Weight gain > 2lb) 30 Days Qty: 30 RF: 0 Discontinued spironolactone 25 mg Tablet 12.5 mg PO DAILY RF: 0 Referrals / Follow Up: Care Physician,No Primary [Primary Care Provider] - In 1 Week Mirta Singh, PA [PHYSICIAN BOWLING BALL FINISHER] - In 1 Week Disposition Disposition (needs filled in before D/C Order can be placed): Home, Self Care Charges/Coding Addendum Addendum: Patient seen by Lavinia VELIZ under my supervision Patient is a 71 y/o female with a PMH as outlined who was admitted with a complaint of shortness of breath which had gradually worsened. She had recently been admitted for acute on chronic heart failure. She called the EMS and she was found to be 85% on room air. She was placed on BIPAP. She was admitted and managed for acute hypoxic and hypercapnic respiratory failure due to acute heart failure with reduced EF. She also had elevated troponins and was also managed for nonstemi. She was diuresed with IV bumex. Cardiology was also consulted. Cardiology evaluated patient and deemed as not a candidate for revascularisation or LVAD. Her shortness of breath improved with diuresis. Hospital course was also complicated by nonsustained vtach as seen on interrogation of her ICD. She was therefore initiated on amiodarone. She was weaned off oxygen, and was discharged home on 01/28/2022. She was discharged on bumex and metolazone. She is to follow up with her PCP and editor map in 2-4 weeks. Patient seen and examined. She had no active complaints and felt well. Review of systems is otherwise negative. Labs and vitals reviewed. Home meds reviewed and reconciled. O/E: Const alert, oriented x3 and no apparent distress Orientation / Consciousness: awake, oriented to person, oriented to place and oriented to time HEENT normocephalic and moist oral mucous membranes Eyes PERRL, EOMs intact bilaterally and conjunctivae normal Neck no lymphadenopathy Resp clear to auscultation bilaterally Auscultation: diminished lung sounds Cardio regular rate, regular rhythm and no murmurs Peripheral Pulses: pulses 2+ throughout GI normal to inspection, nondistended, normoactive bowel sounds, non-tender and non-distended Extremity normal to inspection General Extremity: edema bilateral lower extremity Details: trace Skin no rashes or lesions noted Lesions: no lesions Rashes: no rashes Trauma: no lacerations or abrasions Neuro CN's II-XII intact bilaterally, no focal motor deficits, no sensory deficits noted and deep tendon reflexes 2+ bilaterally Psych mental status grossly normal and affect normal Plan is for discharge home. Rest as per Lavinia Christensen NP-C's note, which I have reviewed and endorsed. Total time I spent on discharge is 30 mins with Lavinia Christensen NP-C spending 16 mins on the discharge, making a total of 46 mins spent on discharge. Visit Charges Inpatient E&M: [id number] Disch Hosp
== END 2022-01-28 14:33 | disposition home or self-care (01) | DRG 280 ==
LOC: ED 20:03 → PCU 21:28
PROVIDERS: Nurse Practitioner Family; Admitting Provider Family Medicine; Emergency Provider Emergency Medicine; Visit Provider Student in an Organized Health Care Education/Training Program
DX: I11.0 Hypertensive heart disease with heart failure (principal); I21.A1 Myocardial infarction type 2; J96.01 Acute respiratory failure with hypoxia; J96.02 Acute respiratory failure with hypercapnia; I50.23 Acute on chronic systolic (congestive) heart failure; I47.2 Ventricular tachycardia; E87.2 Acidosis; I27.20 Pulmonary hypertension, unspecified; J44.9 Chronic obstructive pulmonary disease, unspecified; I25.5 Ischemic cardiomyopathy; E78.5 Hyperlipidemia, unspecified; I25.10 Atherosclerotic heart disease of native coronary artery without angina pectoris; I25.2 Old myocardial infarction; F41.9 Anxiety disorder, unspecified; R73.03 Prediabetes; F32.A Depression, unspecified; Z79.82 Long term (current) use of aspirin; Z79.899 Other long term (current) drug therapy; Z86.16 Personal history of COVID-19; Z87.891 Personal history of nicotine dependence; Z95.810 Presence of automatic (implantable) cardiac defibrillator
CPT/HCPCS: 36415; 36600; 71045; 71046; 80048; 80053; 82803; 83036; 83605; 83735; 83880; 84145; 84484; 85025; 87040; 87804; 93005; 94002; 99285; 99406; J7040; A4216

== ENCOUNTER 2022-06-29 20:11 | Emergency (ER) | payer MEDICARE, SELFPAY ==
[2022-06-29 20:12] VITALS: BP 125/82; PULSE 97; RESP 15; TEMP 36.4; O2SAT 94; BMI 23.1
[2022-06-29 20:15] VITALS: BP 125/82; PULSE 97; RESP 15; TEMP 36.4; O2SAT 94
--- NOTE | 2022-06-29 20:31 | EKG12_ITS ---
Test Reason : SYNCOPE Blood Pressure : / mmHG Vent. Rate : 091 BPM Atrial Rate : 091 BPM P-R Int : 148 ms QRS Dur : 208 ms QT Int : 446 ms P-R-T Axes : 072 029 122 degrees QTc Int : 548 ms Atrial-sensed ventricular-paced rhythm Biventricular pacemaker detected Abnormal ECG Confirmed by NICHOLAS ALCARAZ, SENG ([id number]), editor dictionary HILL JERNIGAN ([id number]) on 07/03/2022 10:49:01 AM Referred By: PL Confirmed By:SENG PETERSON MD
--- NOTE | 2022-06-29 20:41 | EDS_ITS ---
HPI History of Present Illness Chief Complaint: Syncope Informant: patient Narrative Narrative: Patient had a syncopal episode at home. She states she was sitting at the dinner table. She felt just a weird sensation like she was lightheaded. No chest pain or palpitations. Her son was then talking to her and pulled her out of the chair and laid her down. She is not sure if she completely passed out or not. She admits that she has been feeling dehydrated for the last few weeks. She states she just has not been drinking much fluid. She is supposed to drink fluid along with taking her Bumex. She adjusts her Bumex based on symptoms of dyspnea. She has advanced heart disease and ejection fraction of 10 to 15%. She has a palliative care nurse that comes to her house to help also. She has not been having chest pain or fevers. She will occasionally get mild dyspnea but if she takes a deep breath or to its gone. This is pretty normal for her. She is evidently due to have her ICD replaced somewhere in the next couple months. Patient also states that she does not want any advanced testing. She states she is okay with blood work x-rays and EKG. But does not want any CAT scans or advanced testing. She states there is nothing else they can do to her heart to get it better. So she does not want to put herself at risk or side effects when her outcome would not improve. [facility] Medical History Anxiety Atherosclerotic heart disease of [place] coronary artery without angina pectoris CAD (coronary artery disease) CAD (coronary artery disease) Cardiomyopathy, ischemic Cardiomyopathy, ischemic CHF (congestive heart failure), NYHA class IV Coronary artery disease COVID-19 virus infection Depression Former smoker HTN (hypertension) Hypertension ICD (implantable cardioverter-defibrillator) in place Mitral valve disease Non-ST elevation (NSTEMI) myocardial infarction Non-ST elevation (NSTEMI) myocardial infarction Pneumonia due to COVID-19 virus Presence of biventricular automatic implantable cardioverter defibrillator Home Medications hydralazine 10 mg tablet 10 mg PO TID bp 02/28/21 [History Last Taken 04/06/21 13:30] acetaminophen 325 mg tablet 325 mg PO ONCE PRN Pain 04/21/21 [History Last Taken Unknown] isosorbide dinitrate 5 mg tablet 5 mg PO TID heart 04/21/21 [History Last Taken Unknown] aspirin 81 mg tablet,delayed release 81 mg PO DAILY heart health 06/12/21 [History Last Taken Unknown] carvedilol 3.125 mg tablet 3.125 mg PO BID blood pressure 06/12/21 [History Last Taken Unknown] guaifenesin 600 mg tablet, extended release 12 hr (Mucinex) 600 mg PO PRN PRN Sinus Symptoms 10/27/21 [History Last Taken Unknown] multivitamin 1 tab PO DAILY supplement 11/14/21 [History Last Taken Unknown] sertraline 50 mg tablet 25 mg PO QHS mental health 01/12/22 [History Last Taken Unknown] metolazone 5 mg tablet 5 mg PO DAILY PRN PRN Weight gain > 2lb 30 days #30 tabs 01/14/22 [Rx Last Taken Unknown] bumetanide 2 mg tablet 1 mg PO DAILY PRN FLUID RETENTION 02/21/22 [History Last Taken Unknown] Allergy/AdvReac Type Severity Reaction Status Date / Time Sulfa (Sulfonamide Allergy Rash Verified 06/29/22 20:16 Antibiotics) amiodarone AdvReac Intermediate stomach Verified 06/29/22 20:16 ache amoxicillin AdvReac Other Verified 06/29/22 20:16 Dhhvyin-DXC-VeW Reductase AdvReac palpitation Verified 06/29/22 20:16 Inhibitor s [Ggynsqo-Ldb-Ous Reductase Inhibitor] Family History Father Aneurysm Grandmother Congestive heart failure Brother Diabetes Grandfather Myocardial infarction, Onset Age: 60 Grandfather Myocardial infarction, Onset Age: 60 Mother CVA (cerebral vascular accident) Cancer Hx Lung CA w/ tobacco use history. Other Heart disease Surgical History History of left heart catheterization (LHC) (~01/31/21) S/P implantation of automatic cardioverter/defibrillator (AICD) Social History household members: none Smoking Status: Former smoker how long ago did patient quit smoking: Quit 01/2021 with prior 1/2 ppd since 20 y/o. alcohol intake: never substance use type: does not use caffeine: Yes Type: coffee ROS ROS ED Constitutional Constitutional ED: Denies chills or fever(s) Eyes Eyes: Denies change in vision ENT ENT ED: Denies rhinorrhea or sore throat Cardiovascular Cardiovascular: Denies chest pain, palpitations or racing heartbeat Respiratory/Chest Respiratory/Chest: Reports other Details: Occasional dyspnea is chronic for her. Its not active now. ; Denies cough or dyspnea Gastrointestinal Gastrointestinal: Denies abdominal pain, nausea or vomiting Genitourinary Genitourinary ED: Denies dysuria Musculoskeletal Musculoskeletal: Denies myalgias Integumentary Denies rash Neurologic Neurologic: Denies headache(s), paresthesias or weakness Endocrine Endocrinology: Denies polydipsia or polyuria Hematologic/Lymphatic Hematologic/Lymphatic: Denies easy bleeding or easy bruising Allergic/Immunologic Allergic/Immunologic ED: Denies urticaria EXAM Physical Exam Const Vital Signs: 06/29/22 20:12 06/29/22 20:15 06/29/22 20:18 Temperature 97.6 F L 97.6 F L Temperature Source Temporal Temporal Pulse Rate 97 97 Respiratory Rate 15 15 Respiratory Effort Normal Non-Labored Respiratory Pattern Normal Blood Pressure 125/82 H 125/82 H Blood Pressure Mean 96 96 Pulse Ox 94 94 Oxygen Delivery Method Room Air Room Air 06/29/22 21:38 06/29/22 22:16 06/29/22 22:16 Temperature 98 F 98.2 F Temperature Source Oral Temporal Pulse Rate 76 83 86 Respiratory Rate 15 16 Respiratory Effort Respiratory Pattern Blood Pressure 116/76 115/82 H 115/80 Blood Pressure Mean 89 93 91 Pulse Ox 93 98 93 Oxygen Delivery Method Room Air Room Air Nasal Cannula 06/29/22 22:59 Temperature Temperature Source Pulse Rate 101 H Respiratory Rate 18 Respiratory Effort Respiratory Pattern Blood Pressure 113/78 Blood Pressure Mean 89 Pulse Ox Oxygen Delivery Method Positive well nourished and well developed General Appearance ED: well developed and NAD; Negative for cyanotic, diaphoretic or pallor HEENT Reports dry mucous membranes HEENT Narrative: Her lips are very dry. They are cracked. She states her mouth is dry and she has been going through a lot of Chapstick's trying to keep her lips moist. Mouth ED: Yes dry mucous membranes Mouth: dry mucous membranes Eyes General Eye ED: Negative for scleral icterus Neck no JVD Chest Wall inspection of chest normal Resp normal respiratory effort Resp Narrative: Breathing is easy and unlabored. She does have a few crackles at the bases though. ICD pacer is in the left upper chest. Cardio regular rate and regular rhythm GI normal to inspection, nondistended, normoactive bowel sounds and non-tender Back/Spine no CVA tenderness Extremity Extremity Narrative: Patient has trace to no edema really just at the top of the feet. General Extremety ED: Yes edema; Negative for tenderness General Extremity: edema Neuro oriented x3 Psych mental status grossly normal Skin no rashes or lesions noted General Skin Exam: Negative for jaundice or pallor MDM MDM MDM Narrative Medical decision making narrative: Patient's blood work actually shows normal CBC. Her electrolytes look quite good. Glucose is minimally up at 163. Sodium is minimally low at 134. Potassium is good. Her renal function is actually very good. Her troponin is negative. Beta natruretic peptide is elevated but this is always elevated. She does not feel short of breath. There is a small left effusion and cardiomegaly on her x-ray but this is chronic. Patient states she watches her weight and her breathing symptoms and she adjusts her Bumex based on this. I think she is overall doing a good job. She is really asymptomatic now. We were able to get her ICD evaluated. It looks like she did have a V. fib episode with a countershock tonight that matches the time of her syncope. However, the device worked as it is supposed to. This was her fifth countershock that is recorded. I discussed the case with Dr. Lemos who is on for her transit planning manager. Since she feels well, her vitals are good, her electrolytes are good, and her device is functional we will get her home. She has a follow-up appointment already set for Sunday. Lab Data Attestation: I reviewed the patient's lab results. Labs: Laboratory Results - last 24 hr 06/29/22 06/29/22 06/29/22 20:28 20:28 20:28 WBC 6.4 RBC 4.58 Hgb 14.4 Hct 43.0 MCV 93.9 MCH 31.4 MCHC 33.5 RDW Std Deviation 46.8 H RDW Coeff of Toby 13.7 Plt Count 223 MPV 10.6 Immature Gran % (Auto) 0.200 Neut % (Auto) 69.9 Lymph % (Auto) 19.5 [place] % (Auto) 6.6 Eos % (Auto) 3.0 Baso % (Auto) 0.8 Absolute Neuts (auto) 4.4 Absolute Lymphs (auto) 1.24 Nucleated RBC % 0 Sodium 134 L Potassium 3.8 Chloride 99 Carbon Dioxide 25.0 Anion Gap 10 BUN 17 Creatinine 0.77 Estim Creat Clear Calc 38.94 Est GFR (MDRD) Af Amer 95 Est GFR (MDRD) Non-Af 78 BUN/Creatinine Ratio 22.0 H Glucose 173 H Calcium 8.8 Troponin I High Sens 18 B-Natriuretic Peptide 3084.7 H Radiography Diagnostic Testing: Clinical Impression(s) from Imaging Studies Chest X-Ray 06/29/22 20:45 IMPRESSION: Small left effusion unchanged Electronically Signed: Fredo Riggs MD at 21:08 EDT Reading Location ID and State: [address] [place] [address] , Service support , EKG Initial EKG: Comments: EKG done for syncope read by me shows a paced rhythm with typical bundle branch block pattern. No significant ST change. Overall rate of 91. No ectopy or other beats noted. Discharge Plan Triage Chief Complaint: Syncope ED Provider: Jose Holm Dx/Rx/DC Orders Clinical Impression: Syncope, Implantable cardioverter-defibrillator discharge Instructions: ICD Prescriptions: No Action acetaminophen 325 mg tablet 325 mg PO ONCE PRN (Reason: Pain) isosorbide dinitrate 5 mg tablet 5 mg PO TID Rx Instructions: allow nitrate-free interval of 12-14 hrs per 24-hr period multivitamin Tablet 1 tab PO DAILY bumetanide 2 mg tablet 1 mg PO DAILY PRN (Reason: FLUID RETENTION) hydralazine 10 mg Tablet 10 mg PO TID aspirin 81 MG tablet,delayed release (DR/EC) 81 mg PO DAILY Hold Instructions: Bruising carvedilol 3.125 mg tablet 3.125 mg PO BID guaifenesin [Mucinex] 600 mg Tablet Extended Release 12hr 600 mg PO PRN PRN (Reason: Sinus Symptoms) sertraline 50 mg tablet 25 mg PO QHS metolazone 5 mg Tablet 5 mg PO DAILY PRN PRN (Reason: Weight gain > 2lb) 30 Days Qty: 30 0RF Rx Instructions: Take metolazone if weight increase >2 lb. If weight does not normalize at weight check in 24-48 hours notify Cardiology. Primary Care Provider: Care Physician,No Primary Referrals: Livan Phelps MD [Med Staff - Active Staff] - Keep Greg appointment Care Physician,No Primary [Primary Care Provider] - Disposition Disposition: Home, Self Care
--- NOTE | 2022-06-29 20:45 | RAD_ITS ---
STUDY: X-RAY CHEST REASON FOR EXAM: Female, 71 years old. CHF TECHNIQUE: Single frontal view of the chest. COMPARISON: 01/28/2022 FINDINGS: 3-lead AICD on the left unchanged. The lungs are clear and expanded. Spinal left effusion unchanged. Cardiomegaly. Normal mediastinum and sp. Normal visualized pulmonary arteries. Normal visualized aortic arch and descending thoracic aorta. Normal visualized thoracic spine. DJD right shoulder. There is no demonstrated abnormality of the visualized soft tissue structures of the upper abdomen. RAD/Chest 1 View (Portable) IMPRESSION: Small left effusion unchanged Electronically Signed: Fredo Riggs MD at 21:08 EDT ,
[2022-06-29 20:48] LABS: Absolute Lymphocyte Count 1.24 X10^3/uL (0.83-4.51); Absolute Neutrophil Count 4.4 X10^3/uL (2.0-7.7); Basophil# 0.05 X10^3/uL; Basophil% 0.8 % (0-1); Eosinophil# 0.19 X10^3/uL; Hemoglobin 14.4 g/dL (12.0-15.0); Lymphocyte # 1.24 X10^3/ul (0.83-4.51); Lymphocyte % 19.5 % (19-41); Mean Corp Hgb Conc 33.5 g/dL (32-36); Mean Corpuscular Hgb 31.4 pg (27.0-32.0); Mean Corpuscular Volume 93.9 fL (81-99); Mean Platelet Vol. 10.6 fl (6.2-12.0); Monocyte# 0.42 X10^3/uL; Monocyte% 6.6 % (0-10); NRBC Flagged by Analyzer 0 % (0-5); Neutrophil # 4.44 X10^3/uL (2.7-7.7); Neutrophil % 69.9 % (47-70); Platelet Count 223 K/mm3 (150-450); RBC Distribution Width CV 13.7 % (11.6-14.6); RBC Distribution Width SD 46.8 fl (35.1-43.9); Red Blood Count 4.58 M/mm3 (4.2-5.4); White Blood Count 6.4 K/mm3 (4.4-11.0)
[2022-06-29 21:08] LABS: Anion Gap 10 (5-15); BUN 17 mg/dL (7-18); Calcium,Total 8.8 mg/dL (8.5-10.1); Chloride 99 mmol/L (98-107); Creatinine, Serum 0.77 mg/dL (0.55-1.02); EST Glomerular Filtration Rate 78 mL/min (>60); Est Glom Filt Rate - Afr Amer 95 mL/min (>60); Estimated Creatinine Clearance 38.94 ml/min; Glucose 173 mg/dL (74-106); Potassium 3.8 mmol/L (3.5-5.1); Sodium Level 134 mmol/L (136-145); Troponin-I HS 18 pg/mL (3.0-54.0)
[2022-06-29 21:17] LABS: BNP,B-Type NATRIURETIC PEPTIDE 3084.7 pg/mL (0-100)
[2022-06-29 21:38] VITALS: BP 116/76; PULSE 76; RESP 15; TEMP 36.6; O2SAT 93
--- NOTE | 2022-06-29 21:38 | ED.RN ---
INTERROGATED ICD AND TRANSMITTED INFO. WAITING FOR INFO TO BE FAXED BACK
[2022-06-29 22:16] VITALS: BP 115/80; BP 115/82; PULSE 83; PULSE 86; RESP 16; TEMP 36.8; O2SAT 93; O2SAT 98
[2022-06-29] MEDS: Isosorbide DN 10 MG Tablet 5 MG PO (22:53)
[2022-06-29] MEDS: hydrALAZINE 10 MG Tablet PO (22:53)
[2022-06-29] MEDS: Carvedilol 3.125 MG TABLET PO (22:54)
[2022-06-29 22:59] VITALS: BP 113/78; PULSE 101; RESP 18
== END 2022-06-29 23:14 | disposition home or self-care (01) ==
PROVIDERS: Emergency Provider Emergency Medicine; Visit Provider Emergency Medicine
DX: R55 Syncope and collapse (principal); I11.0 Hypertensive heart disease with heart failure; I50.9 Heart failure, unspecified; I25.5 Ischemic cardiomyopathy; I25.10 Atherosclerotic heart disease of native coronary artery without angina pectoris; F32.A Depression, unspecified; Z79.82 Long term (current) use of aspirin; Z79.899 Other long term (current) drug therapy; I25.2 Old myocardial infarction; Z95.810 Presence of automatic (implantable) cardiac defibrillator; Z87.891 Personal history of nicotine dependence
CPT/HCPCS: 71045; 80048; 83880; 84484; 85025; 93005; 99285

== ENCOUNTER 2022-07-20 08:55 | Day surgery (SDC) | payer MEDICARE, SELFPAY ==
[2022-07-04 10:26] LABS: Bacteria 0 SEEN /hpf (None Seen); Mucous, Urine 0 SEEN /hpf (<or=2+); White Blood Cells 0 SEEN /hpf (0-5)
[2022-07-04 11:32] LABS: Color, Urine Yellow (Yellow); Glucose, Dipstick Normal (Normal); Ketone-Dipstick Negative (Negative); Leukocyte Esterase-Dipstick Negative /ul (Negative); Nitrite-Dipstick Negative (Negative); Occult Blood-Urine 10 /ul (Negative); Protein-Dipstick 30 mg/dl (Negative); Urine Bilirubin Dipstick Negative (Negative); Urine Clarity Sl. Cloudy (Clear); Urine Urobilinogen Normal (Normal)
[2022-07-04 11:44] LABS: Red Blood Cells-Urine 0-5 SEEN /hpf (0-5); Squamous Epithelial Cells - UA 0-5 SEEN /hpf (5-10)
[2022-07-19 07:58] VITALS: BMI 21.3
[2022-07-20 09:15] LABS: Hematocrit 43.6 % (37-47); Hemoglobin 14.7 g/dL (12.0-15.0); Mean Corp Hgb Conc 33.7 g/dL (32-36); Mean Corpuscular Hgb 31.2 pg (27.0-32.0); Mean Corpuscular Volume 92.6 fL (81-99); Mean Platelet Vol. 10.5 fl (6.2-12.0); Platelet Count 234 K/mm3 (150-450); RBC Distribution Width CV 13.6 % (11.6-14.6); RBC Distribution Width SD 45.9 fl (35.1-43.9); Red Blood Count 4.71 M/mm3 (4.2-5.4); White Blood Count 5.6 K/mm3 (4.4-11.0)
[2022-07-20 09:50] LABS: Anion Gap 4 (5-15); BUN 23 mg/dL (7-18); BUN/Creat Ratio 27.9 RATIO (10-20); Calcium,Total 9.4 mg/dL (8.5-10.1); Chloride 96 mmol/L (98-107); Creatinine, Serum 0.82 mg/dL (0.55-1.02); EST Glomerular Filtration Rate 72 mL/min (>60); Est Glom Filt Rate - Afr Amer 88 mL/min (>60); Estimated Creatinine Clearance 47.48 ml/min; Glucose 124 mg/dL (74-106); Potassium 3.9 mmol/L (3.5-5.1); Sodium Level 135 mmol/L (136-145)
--- NOTE | 2022-07-20 11:36 | EX.DEFIBPROC ---
Defibrillator Procedure Note Defibrillator Procedure Note Diagnosis: ischemic Cardiomyopathy with NYHA Class iii. ICD for secondary prevention. Device generator replacement for normal battery depletion Preoperative diagnosis is device at end of life for normal battery depletion. Postoperative diagnosis same as above. After informed consent and IV antibiotics the patient was brought to the [facility]ization laboratory and the skin over the device was prepped and draped in the usual sterile manner. Intermittent boluses of Versed, and fentanyl were used for sedation and analgesia as well as 1% subcutaneous lidocaine. An incision was made over the pre-existing device. Using blunt and Bovie dissection the pocket was opened and the device was removed. Careful attention was paid not to injure the pre-existing leads. The leads were removed from the device header and they were interrogated. There is normal lead function. Hemostasis was obtained. The pocket was flushed with antibiotic solution. The sponge and needle count were correct. The new device was brought to the field. The leads were placed in the appropriate position in the header and secured by the set screw. The leads and the device were then placed in the pocket. The pocket was closed with a deep layer of running 2-0 Vicryl, a superficial layer of running 4-0 Vicryl, skin with Steri-Strips which were covered with a rolled 4 x 4 and Tegaderm. Patient left the room with the device programmed to proper parameters and there were no complications. The device is a BiV ICD chamber [employer] generator. All lead parameters were tested and found to be functionally normal. Lead and device serial and model numbers are available in the chart documents provided by the device company customer sales representative procedure summary.
== END 2022-07-20 13:15 | disposition home or self-care (01) ==
LOC: CLSP 08:58
PROVIDERS: Referring Provider Internal Medicine Cardiovascular Disease; Visit Provider Internal Medicine Cardiovascular Disease
DX: Z45.02 Encounter for adjustment and management of automatic implantable cardiac defibrillator (principal); I11.0 Hypertensive heart disease with heart failure; I50.9 Heart failure, unspecified; I25.2 Old myocardial infarction; I25.5 Ischemic cardiomyopathy; I25.10 Atherosclerotic heart disease of native coronary artery without angina pectoris; F41.9 Anxiety disorder, unspecified; F32.A Depression, unspecified; Z86.16 Personal history of COVID-19; Z79.82 Long term (current) use of aspirin; Z79.899 Other long term (current) drug therapy
CPT/HCPCS: 33264; 36415; 80048; 81001; 85027; 87635; 93641; 99152; 99153; C9803; J7040; J7050; J2405; U0003; U0005

== ENCOUNTER 2022-08-14 14:37 | Inpatient (IN) | payer MEDICARE, SELFPAY ==
[2022-08-14] VITALS (9 sets, daily range): BP systolic 110–139; BP diastolic 79–96; PULSE 89–105; RESP 6–20; TEMP 36.2–36.5; O2SAT 88–97; BMI 28.3; BMI 25.3
--- NOTE | 2022-08-14 15:01 | EDS_ITS ---
HPI History of Present Illness Chief Complaint: Edema Narrative Narrative: 71-year-old female here for lower extremity edema. The patient states he has had several days of lower extremity edema, dyspnea on exertion. No chest pain denies cough. Notes she takes Bumex and has been compliant. States she doubled her Bumex today but notes decreased urination. She states her symptoms are constant, severe, with no alleviating factors. She denies orthopnea. Denies any PE risk factors. No bleeding diathesis endorsed. Old chart reviewed: History of CHF, cardiomyopathy, ICD Ejection fraction 10-15 PFSH PFS Medical History Anxiety Atherosclerotic heart disease of [place] coronary artery without angina pectoris CAD (coronary artery disease) CAD (coronary artery disease) Cardiomyopathy, ischemic Cardiomyopathy, ischemic CHF (congestive heart failure), NYHA class IV Coronary artery disease COVID-19 virus infection Depression Former smoker HTN (hypertension) Hypertension ICD (implantable cardioverter-defibrillator) in place Mitral valve disease Non-ST elevation (NSTEMI) myocardial infarction Non-ST elevation (NSTEMI) myocardial infarction Pneumonia due to COVID-19 virus Presence of biventricular automatic implantable cardioverter defibrillator Home Medications hydralazine 10 mg tablet 10 mg PO TID bp 02/28/21 [History Last Taken 07/20/22] acetaminophen 325 mg tablet 325 mg PO ONCE PRN Pain 04/21/21 [History Last Taken Unknown] isosorbide dinitrate 5 mg tablet 5 mg PO TID heart 04/21/21 [History Last Taken 07/20/22] aspirin 81 mg tablet,delayed release 81 mg PO DAILY heart health 06/12/21 [History Last Taken Unknown] carvedilol 3.125 mg tablet 3.125 mg PO BID blood pressure 06/12/21 [History Last Taken 07/20/22] guaifenesin 600 mg tablet, extended release 12 hr (Mucinex) 600 mg PO PRN PRN Sinus Symptoms 10/27/21 [History Last Taken Unknown] multivitamin 1 tab PO DAILY supplement 11/14/21 [History Last Taken Unknown] sertraline 50 mg tablet 25 mg PO QHS mental health 01/12/22 [History Last Taken Unknown] metolazone 5 mg tablet 5 mg PO DAILY PRN PRN Weight gain > 2lb 30 days #30 tabs 01/14/22 [Rx Last Taken Unknown] bumetanide 2 mg tablet 1 mg PO DAILY PRN FLUID RETENTION 02/21/22 [History Last Taken Unknown] melatonin 5 mg capsule 2.5 - 5 mg PO QHS 07/04/22 [History Last Taken Unknown] ondansetron HCl 4 mg tablet 4 mg PO Q6H PRN Nausea 07/20/22 [History Last Taken 07/20/22] magnesium 250 mg tablet 250 mg PO DAILY 07/27/22 [History Last Taken Unknown] Allergy/AdvReac Type Severity Reaction Status Date / Time Sulfa (Sulfonamide Allergy Rash Verified 07/27/22 13:43 Antibiotics) amiodarone AdvReac Intermediate stomach Verified 07/27/22 13:43 ache amoxicillin AdvReac Other Verified 07/27/22 13:43 Srfjavj-SRQ-TvW Reductase AdvReac palpitation Verified 07/27/22 13:43 Inhibitor s [Usbejzc-Gqi-Eny Reductase Inhibitor] Family History Father Aneurysm Grandmother Congestive heart failure Brother Diabetes Grandfather Myocardial infarction, Onset Age: 60 Grandfather Myocardial infarction, Onset Age: 60 Mother CVA (cerebral vascular accident) Cancer Hx Lung CA w/ tobacco use history. Other Heart disease Surgical History History of left heart catheterization (LHC) (~01/31/21) Implantable cardioverter-defibrillator (ICD) generator end of life (~07/20/22) S/P implantation of automatic cardioverter/defibrillator (AICD) Social History household members: none Smoking Status: Former smoker how long ago did patient quit smoking: Quit 01/2021 with prior 1/2 ppd since 20 y/o. alcohol intake: never substance use type: does not use caffeine: Yes Type: coffee ROS ROS ED ROS Narrative Constitutional: Denies fever HEENT: Denies sore throat Neck: Denies neck pain Cardiovascular: Denies chest pain, syncope Respiratory: Endorses shortness of breath GI: Denies nausea vomiting or abdominal pain : Denies changes in urinary habits Musculoskeletal: Denies muscle or joint pain Extremities: Endorses lower extremity edema Neurologic: Denies numbness weakness or loss of sensation Skin denies rash EXAM Physical Exam Narrative Exam Narrative: Nursing triage notes reviewed, Vital signs reviewed Constitutional: please see mdm HENT: MMM Eyes: Pupils equal round and reactive to light, Extraocular muscles intact Neck: No obvious JVD, accessory muscle usage noted in the neck Lungs: Clear to auscultation, noted rales in bilateral bases. Mild increased work of breathing, n mild accessory muscle use no nasal flaring. No respiratory distress noted Heart: Regular rate and rhythm, No murmurs, No rubs and No gallops, 2+ distal pulses (radial, femoral, posterior tibial) in all extremities Abdomen: Soft, there is no tenderness, rigidity, rebound or guarding, no obvious peritoneal signs, no palpable pulsatile abdominal masses, no auscultated abdominal bruit : No CVAT Extremities: 3+ pitting edema bilateral Neuro: No focal neurological deficits, cranial nerves II through XII intact, 5/5 strength in all extremities. Intact sensation to light touch in all extremities, 2+ reflexes bilateral patella dens. Normal gait. No ataxia. Skin: No rash or lesions noted Const Vital Signs: 08/14/22 14:37 08/14/22 15:13 08/14/22 16:09 Temperature 97.1 F L Temperature Source Temporal Pulse Rate 98 89 Respiratory Rate 6 L 15 Respiratory Effort Normal Respiratory Pattern Normal Blood Pressure 122/87 H 115/79 Blood Pressure Mean 98 91 Pulse Ox 96 88 Oxygen Delivery Method Room Air Room Air Oxygen Flow Rate (L/min) 08/14/22 16:15 Temperature Temperature Source Pulse Rate Respiratory Rate Respiratory Effort Respiratory Pattern Blood Pressure Blood Pressure Mean Pulse Ox 94 Oxygen Delivery Method Nasal Cannula Oxygen Flow Rate (L/min) 2 MDM [facility] MDM Narrative Medical decision making narrative: 71-year-old female here with lower extremity edema, dyspnea on exertion in setting of CHF. Concern for CHF exacerbation, pneumonia, arrhythmia, ACS. Obtained EKG, labs including BNP, placed on telemetry. Patient was found to be transient hypoxic placed on 2 L of oxygen with improvement in saturations. Chest x-ray showed evidence of volume overload, BNP is pending at this time EKG troponin not evidence of myocardial ischemia or new arrhythmia similar to prior EKG. No significant anemia noted however noted severe hyponatremia this may be due to volume overload producing relative dilution of sodium levels. Kidney function within normal limits. Gave Bumex will monitor I's and O's closely we will admit the patient to telemetry for oxygen, diuresis, echocardiogram, goals of care discussion. Discussed with hospitalist Dr. aGrza who accepted the patient's case. Patient signed out to p.m. physician pending transfer to PCU. Lab Data Attestation: I reviewed the patient's lab results. Lab results narrative: CBC without leukocytosis, severe anemia, no thrombocytopenia. BMP with severe hyponatremia, no acute kidney injury Troponin is negative, no evidence of myocardial ischemia BNP pending at this time Labs: Laboratory Results - last 24 hr 08/14/22 08/14/22 16:05 16:05 WBC 6.8 RBC 4.80 Hgb 15.4 H Hct 43.7 MCV 91.0 MCH 32.1 H MCHC 35.2 RDW Std Deviation 45.1 H RDW Coeff of Toby 13.6 Plt Count 240 MPV 10.5 Immature Gran % (Auto) 0.100 Neut % (Auto) 83.2 H Lymph % (Auto) 10.1 L [place] % (Auto) 5.7 Eos % (Auto) 0.3 Baso % (Auto) 0.6 Absolute Neuts (auto) 5.7 Absolute Lymphs (auto) 0.69 L Nucleated RBC % 0 Sodium 121 L Potassium 3.9 Chloride 82 L Carbon Dioxide 29.0 Anion Gap 10 BUN 30 H Creatinine 0.81 Estim Creat Clear Calc 48.07 Est GFR (MDRD) Af Amer 90 Est GFR (MDRD) Non-Af 74 BUN/Creatinine Ratio 37.1 H Glucose 133 H Calcium 9.3 Troponin I High Sens 31 Radiography Diagnostic Testing: Clinical Impression(s) from Imaging Studies Chest X-Ray 08/14/22 15:35 IMPRESSION: Worsening right pleural effusion likely related to congestive heart failure. Electronically Signed: Jayme Meredith MD at 16:54 EDT , Discharge Plan Triage Chief Complaint: Edema ED Provider: Migel Wright Dx/Rx/DC Orders Clinical Impression: CHF (congestive heart failure), NYHA class IV, Cardiomyopathy, ischemic, Pleural effusion, Hypoxia Primary Care Provider: Care Physician,No Primary Disposition Disposition: Acute Care Hospital [facility]
--- NOTE | 2022-08-14 15:18 | EKG12_ITS ---
Test Reason : EDEMA Blood Pressure : / mmHG Vent. Rate : 090 BPM Atrial Rate : 090 BPM P-R Int : 162 ms QRS Dur : 176 ms QT Int : 408 ms P-R-T Axes : 081 -17 118 degrees QTc Int : 499 ms Atrial-sensed ventricular-paced rhythm Biventricular pacemaker detected Abnormal ECG When compared with ECG of 29-JUN-2022 20:43, No significant change was found Confirmed by JUSTIN ALCARAZ, SHILPI ([id number]), visual effects editor HILL JERNIGAN ([id number]) on 08/18/2022 2:41:59 P M Referred By: Confirmed By:ADOLFO ANDERSON MD
--- NOTE | 2022-08-14 15:35 | RAD_ITS ---
EXAM: XR CHEST, 1 VIEW CLINICAL INDICATION: chest pain TECHNIQUE: Frontal view of the chest. This report was created using [employer] report generation technology. COMPARISON: 06/29/2022 FINDINGS: Bilateral pleural effusions are identified, increased on the right side. These are at least moderate size with adjacent passive atelectasis. Redemonstration of vascular congestion and interstitial pulmonary edema. Redemonstration of enlarged cardiac silhouette which is concerning for cardiomegaly and/or pericardial effusion. Left-sided AICD/pacer is stable. Degenerative changes of the spine Degenerative changes of the acromioclavicular joints. RAD/Chest 1 View (Portable) IMPRESSION: Worsening right pleural effusion likely related to congestive heart failure. Electronically Signed: Jayme Meredith MD at 16:54 EDT ,
[2022-08-14 16:13] LABS: Absolute Lymphocyte Count 0.69 X10^3/uL (0.83-4.51); Absolute Neutrophil Count 5.7 X10^3/uL (2.0-7.7); Basophil# 0.04 X10^3/uL; Basophil% 0.6 % (0-1); Eosinophil# 0.02 X10^3/uL; Eosinophils% 0.3 % (0-5); Hematocrit 43.7 % (37-47); Hemoglobin 15.4 g/dL (12.0-15.0); Lymphocyte # 0.69 X10^3/ul (0.83-4.51); Lymphocyte % 10.1 % (19-41); Mean Corp Hgb Conc 35.2 g/dL (32-36); Mean Corpuscular Hgb 32.1 pg (27.0-32.0); Mean Platelet Vol. 10.5 fl (6.2-12.0); Monocyte# 0.39 X10^3/uL; Monocyte% 5.7 % (0-10); NRBC Flagged by Analyzer 0 % (0-5); Neutrophil # 5.68 X10^3/uL (2.7-7.7); Neutrophil % 83.2 % (47-70); Platelet Count 240 K/mm3 (150-450); RBC Distribution Width CV 13.6 % (11.6-14.6); RBC Distribution Width SD 45.1 fl (35.1-43.9); White Blood Count 6.8 K/mm3 (4.4-11.0)
[2022-08-14 16:36] LABS: Anion Gap 10 (5-15); BUN 30 mg/dL (7-18); BUN/Creat Ratio 37.1 RATIO (10-20); Calcium,Total 9.3 mg/dL (8.5-10.1); Chloride 82 mmol/L (98-107); Creatinine, Serum 0.81 mg/dL (0.55-1.02); EST Glomerular Filtration Rate 74 mL/min (>60); Est Glom Filt Rate - Afr Amer 90 mL/min (>60); Estimated Creatinine Clearance 48.07 ml/min; Glucose 133 mg/dL (74-106); Potassium 3.9 mmol/L (3.5-5.1); Sodium Level 121 mmol/L (136-145); Troponin-I HS (w/2H Reflex) 31 pg/mL (3.0-54.0)
[2022-08-14] MEDS: Bumetanide 1 MG/4 ML Vial 2 MG IV (17:42)
[2022-08-14 18:09] LABS: Reflex Troponin-HS? (from REC) Y
--- NOTE | 2022-08-14 18:36 | PCM.HP.STD ---
HPI - General General Date of Admission: 08/14/22 HPI Narrative TIFFANY CARDONA, is a 71 F who presents to the hospital with shortness of breath and lower extremity edema. She has significant history of systolic CHF with an EF of 10 to 15% on her echo back in December, she does have an ICD placed. She has been in the hospital fairly frequently but since her last admission its been about 6months which she says is the longest stretch she has been outside of the hospital. She does have palliative care at home. She cannot identify any reason as to the volume overload, she has been taking her Bumex she says and has been on a fluid restriction. She was hypoxic in the ER down to 88% so she is currently on 2 L of oxygen, she states that normally she is so bad that she needs to be on BiPAP. She did receive a dose of IV Bumex in the ER. Of note she did just have the battery replaced in her ICD at the end of June. [facility]LY [facility] Medical History Anxiety Atherosclerotic heart disease of [place] coronary artery without angina pectoris CAD (coronary artery disease) CAD (coronary artery disease) Cardiomyopathy, ischemic Cardiomyopathy, ischemic CHF (congestive heart failure), NYHA class IV Coronary artery disease COVID-19 virus infection Depression Former smoker HTN (hypertension) Hypertension ICD (implantable cardioverter-defibrillator) in place Mitral valve disease Non-ST elevation (NSTEMI) myocardial infarction Non-ST elevation (NSTEMI) myocardial infarction Pneumonia due to COVID-19 virus Presence of biventricular automatic implantable cardioverter defibrillator Home Medications hydralazine 10 mg tablet 10 mg PO TID bp 02/28/21 [History Last Taken 07/20/22] acetaminophen 325 mg tablet 325 mg PO ONCE PRN Pain 04/21/21 [History Last Taken Unknown] isosorbide dinitrate 5 mg tablet 5 mg PO TID heart 04/21/21 [History Last Taken 07/20/22] aspirin 81 mg tablet,delayed release 81 mg PO DAILY heart health 06/12/21 [History Last Taken Unknown] carvedilol 3.125 mg tablet 3.125 mg PO BID blood pressure 06/12/21 [History Last Taken 07/20/22] guaifenesin 600 mg tablet, extended release 12 hr (Mucinex) 600 mg PO PRN PRN Sinus Symptoms 10/27/21 [History Last Taken Unknown] multivitamin 1 tab PO DAILY supplement 11/14/21 [History Last Taken Unknown] sertraline 50 mg tablet 25 mg PO QHS mental health 01/12/22 [History Last Taken Unknown] metolazone 5 mg tablet 5 mg PO DAILY PRN PRN Weight gain > 2lb 30 days #30 tabs 01/14/22 [Rx Last Taken Unknown] bumetanide 2 mg tablet 1 mg PO DAILY PRN FLUID RETENTION 02/21/22 [History Last Taken Unknown] melatonin 5 mg capsule 2.5 - 5 mg PO QHS 07/04/22 [History Last Taken Unknown] ondansetron HCl 4 mg tablet 4 mg PO Q6H PRN Nausea 07/20/22 [History Last Taken 07/20/22] magnesium 250 mg tablet 250 mg PO DAILY 07/27/22 [History Last Taken Unknown] Allergy/AdvReac Type Severity Reaction Status Date / Time Sulfa (Sulfonamide Allergy Rash Verified 07/27/22 13:43 Antibiotics) amiodarone AdvReac Intermediate stomach Verified 07/27/22 13:43 ache amoxicillin AdvReac Other Verified 07/27/22 13:43 [id number]-AtE Reductase AdvReac palpitation Verified 07/27/22 13:43 Inhibitor s [Shjmnvc-Btd-Vph Reductase Inhibitor] Family History Father Aneurysm Grandmother Congestive heart failure Brother Diabetes Grandfather Myocardial infarction, Onset Age: 60 Grandfather Myocardial infarction, Onset Age: 60 Mother CVA (cerebral vascular accident) Cancer Hx Lung CA w/ tobacco use history. Other Heart disease Surgical History History of left heart catheterization (LHC) (~01/31/21) Implantable cardioverter-defibrillator (ICD) generator end of life (~07/20/22) S/P implantation of automatic cardioverter/defibrillator (AICD) Social History household members: none Smoking Status: Former smoker how long ago did patient quit smoking: Quit 01/2021 with prior 1/2 ppd since 20 y/o. alcohol intake: never substance use type: does not use caffeine: Yes Type: coffee ROS Constitutional Constitutional: Denies chills, fatigue, fever(s) or malaise Eyes Eyes: Denies blurry vision ENT HEENT: Denies headache(s) or nasal discharge Cardiovascular Cardiovascular: Reports edema; Denies chest pain, dyspnea on exertion or syncope Respiratory/Chest Respiratory/Chest: Reports shortness of breath at rest and shortness of breath with exertion; Denies cough Gastrointestinal Gastrointestinal: Denies constipation, diarrhea, nausea or vomiting Genitourinary Genitourinary: Denies dysuria Neurologic Neurologic: Denies focal weakness, numbness or tremor(s) Psychiatric Psychiatric: Denies anxiety or depression Vital Signs Vital Signs Vital Signs: 08/14/22 14:37 08/14/22 15:13 08/14/22 16:09 Temperature 97.1 F L Temperature Source Temporal Pulse Rate 98 89 Respiratory Rate 6 L 15 Respiratory Effort Normal Respiratory Pattern Normal Blood Pressure 122/87 H 115/79 Blood Pressure Mean 98 91 Blood Pressure Source Blood Pressure Position Blood Pressure Location Pulse Ox 96 88 Oxygen Delivery Method Room Air Room Air Oxygen Flow Rate (L/min) Fraction of Inspired Oxygen (FIO2) 08/14/22 16:15 08/14/22 17:52 08/14/22 18:18 Temperature 97.1 F L 97.7 F L Temperature Source Temporal Oral Pulse Rate 99 105 H Respiratory Rate 20 H 20 H Respiratory Effort Respiratory Pattern Blood Pressure 139/96 H 127/92 H Blood Pressure Mean 110 103 Blood Pressure Source Monitor Blood Pressure Position Semi-Fowlers Blood Pressure Location Right Arm Pulse Ox 94 96 97 Oxygen Delivery Method Nasal Cannula Nasal Cannula Nasal Cannula Oxygen Flow Rate (L/min) 2 2 2 Fraction of Inspired Oxygen (FIO2) 08/14/22 18:33 Temperature Temperature Source Pulse Rate 98 Respiratory Rate 16 Respiratory Effort Respiratory Pattern Normal Blood Pressure Blood Pressure Mean Blood Pressure Source Blood Pressure Position Blood Pressure Location Pulse Ox 94 Oxygen Delivery Method Oxygen Flow Rate (L/min) Fraction of Inspired Oxygen (FIO2) 21 Weight Weight: 134 lb 0.657 oz Body Mass Index (BMI) 25.3 Physical Exam Narrative General: Alert, Oriented x3, Cooperative, No apparent distress HEENT: Atraumatic, PERRLA, EOMI, Normocephalic Oral: Moist Mucosa Neck: Supple, No JVD Lungs: Diminished, Normal air movement, No rhonchi, No wheeze, No rales Cardiovascular: Regular rate, Regular Rhythm, Normal S1, Normal S2, No murmurs Abdomen: Soft, Non Tender, Non-Distended, No Hepato-splenomegaly Extremities: Bilateral lower extremity edema, Capillary Refill Less than 3 Seconds Skin: No rashes, No breakdown, she does have chronically purple lower extremities Musculoskeletal: No Tenderness to Palpation of Joints or Extremities Neurological: Cranial nerves II-XII grossly intact, Motor Exam 5/5 strength throughout, Sensory exam intact to light touch and pain Psych/Mental Status: Normal Affect, Appropriate Results Lab / Micro Data Result Diagrams: 08/14/22 16:05 08/14/22 16:05 Labs: Laboratory Results - last 24 hr 08/14/22 16:05: WBC 6.8, RBC 4.80, Hgb 15.4 H, Hct 43.7, MCV 91.0, MCH 32.1 H, MCHC 35.2, RDW Std Deviation 45.1 H, RDW Coeff of Toby 13.6, Plt Count 240, MPV 10.5, Immature Gran % (Auto) 0.100, Neut % (Auto) 83.2 H, Lymph % (Auto) 10.1 L, [place] % (Auto) 5.7, Eos % (Auto) 0.3, Baso % (Auto) 0.6, Absolute Neuts (auto) 5.7, Absolute Lymphs (auto) 0.69 L, Nucleated RBC % 0 08/14/22 16:05: Sodium 121 L, Potassium 3.9, Chloride 82 L, Carbon Dioxide 29.0, Anion Gap 10, BUN 30 H, Creatinine 0.81, Estim Creat Clear Calc 48.07, Est GFR (MDRD) Af Amer 90, Est GFR (MDRD) Non-Af 74, BUN/Creatinine Ratio 37.1 H, Glucose 133 H, Calcium 9.3, Troponin I High Sens 31 Radiology Impression Chest X-Ray 08/14/22 15:35 IMPRESSION: Worsening right pleural effusion likely related to congestive heart failure. Electronically Signed: Jayme Meredith MD at 16:54 EDT , Assessment & Plan Assessment/Plan (1) CHF (congestive heart failure), NYHA class IV: (2) Hypoxia: PLAN: Plan 1. Acute hypoxic respiratory failure secondary to systolic CHF exacerbation/HTN/HLD ? Echo in December with an EF of 10 to 15% ? I did have a 20-minute conversation with her on advance care planning including hospice options, she is currently on palliative care and does not want to proceed with hospice at this time ? We will continue with her home medications, will place her on IV Bumex 2 mg twice daily ? We will place her on a fluid restriction ? I did not consult cardiology at this time ? She is allergic to statins ? She has had extensive cardiac evaluations, and she is not a candidate for any type of revascularization or an LVAD 2. Anxiety/depression ? Stable ? Continue with Zoloft DVT: Lovenox Charges/Coding Visit Charges Inpatient E&M: 65328 Init Hosp L2
[2022-08-14 19:26] LABS: Troponin-I HS 36 pg/mL (3.0-54.0)
[2022-08-14 19:30] LABS: BNP,B-Type NATRIURETIC PEPTIDE > 5000.0 pg/mL (0-100)
[2022-08-14] MEDS: hydrALAZINE 10 MG Tablet PO (22:30)
[2022-08-14] MEDS: Carvedilol 3.125 MG TABLET PO (23:40)
[2022-08-14] MEDS: Isosorbide DN 10 MG Tablet 5 MG PO (23:40)
[2022-08-14] MEDS: Sertraline 50 MG Tablet 25 MG PO (23:41)
[2022-08-15] VITALS (15 sets, daily range): BP systolic 103–130; BP diastolic 74–95; PULSE 70–100; RESP 16–19; TEMP 36.6–37.2; O2SAT 92–98
[2022-08-15 06:26] LABS: Absolute Lymphocyte Count 1.17 X10^3/uL (0.83-4.51); Absolute Neutrophil Count 3.9 X10^3/uL (2.0-7.7); Basophil# 0.03 X10^3/uL; Basophil% 0.5 % (0-1); Eosinophil# 0.02 X10^3/uL; Eosinophils% 0.3 % (0-5); Hematocrit 40.6 % (37-47); Hemoglobin 14.2 g/dL (12.0-15.0); Lymphocyte # 1.17 X10^3/ul (0.83-4.51); Lymphocyte % 20.2 % (19-41); Mean Corpuscular Hgb 31.1 pg (27.0-32.0); Mean Platelet Vol. 11.2 fl (6.2-12.0); Monocyte# 0.62 X10^3/uL; Monocyte% 10.7 % (0-10); NRBC Flagged by Analyzer 0 % (0-5); Neutrophil # 3.94 X10^3/uL (2.7-7.7); Platelet Count 221 K/mm3 (150-450); RBC Distribution Width CV 13.5 % (11.6-14.6); Red Blood Count 4.56 M/mm3 (4.2-5.4); White Blood Count 5.8 K/mm3 (4.4-11.0)
[2022-08-15] MEDS: Isosorbide DN 10 MG Tablet 5 MG PO ×3 (06:53→21:27)
[2022-08-15] MEDS: hydrALAZINE 10 MG Tablet PO ×3 (06:53→21:28)
[2022-08-15 06:55] LABS: Anion Gap 11 (5-15); BUN 29 mg/dL (7-18); BUN/Creat Ratio 35.4 RATIO (10-20); Calcium,Total 8.6 mg/dL (8.5-10.1); Chloride 83 mmol/L (98-107); Creatinine, Serum 0.82 mg/dL (0.55-1.02); EST Glomerular Filtration Rate 73 mL/min (>60); Est Glom Filt Rate - Afr Amer 88 mL/min (>60); Estimated Creatinine Clearance 47.48 ml/min; Glucose 88 mg/dL (74-106); Potassium 3.6 mmol/L (3.5-5.1); Sodium Level 123 mmol/L (136-145)
--- NOTE | 2022-08-15 10:25 | CASEMGMT ---
FRANK OWENS Face to Face with patient for initial transition planning/care coordination assessment. FRANK OWENS introduced self and role at [facility]. Patient lying in bed, alert and oriented. Patient willing to participate in assessment and is able to answer all questions appropriately. Care providers, pharmacy, and demographics verified. Patient wishes to discharge home, denies need for home health at this time. Patient states she has no further needs or concerns at this time. CM to follow for discharge planning needs that may arise. PCP: No PCP, list provided but patient states she follows with [facility] once a month. FRANK OWENS encouraged patient to get established with PCP. Specialists: Lenin, physician anesthesiologist Preferred Pharmacy: [facility] at discharge. Insurance: [facility] Prescription Benefit: None Living Will/HPOA: yes, brother Osmel and son Ralf VIRK: Son, brother Living Arrangements: Patient lives alone in a 2 story home. Patient states she is independent and able to ambulate stairs. Transportation: self, friend DME/HHC: Patient states she has cane, walker, and pulse ox at home. Patient is active with [facility]. Will monitor patient for home oxygen at discharge. Patient states no preferences for DME. Disposition Plan: Patient to discharge home with follow-up plans in place. Ita RAMSEY, RN, CM
[2022-08-15] MEDS: Aspirin E.C. 81 MG Tablet PO (11:46)
[2022-08-15] MEDS: Enoxaparin 40 MG/0.4 ML Syringe SC (11:51)
[2022-08-15] MEDS: Carvedilol 3.125 MG TABLET PO ×2 (11:51→21:27)
[2022-08-15] MEDS: Bumetanide 1 MG/4 ML Vial 2 MG IV ×2 (12:00→18:13)
--- NOTE | 2022-08-15 18:21 | PCM.PN.HOSP ---
Subjective Subjective Patient was seen and examined today, she remains on IV Bumex, she is requiring oxygen at 2 L/min at this time. Patient stated that she was not taking Bumex on a daily basis-she was taking it as needed. Objective Data Objective Data Vital Signs: Vital Signs Temp Pulse Resp BP Pulse Ox O2 Del Method O2 Flow Rate 98.9 F 92 16 108/74 96 Nasal Cannula 2 08/15/22 17:56 08/15/22 17:56 08/15/22 17:56 08/15/22 17:56 08/15/22 17:56 08/15/22 17:56 08/15/22 17:56 FiO2 21 08/14/22 18:33 Oxygen Flow Rate (L/min) 2 Oxygen Delivery Method Nasal Cannula Weight: 60.8 kg Body Mass Index (BMI) 25.3 Intake & Output: Intake and Output for Last 24 Hours 08/13/22 08/14/22 08/15/22 23:59 23:59 23:59 Intake Total 480 / 480 Output Total 2700 / 2700 Balance -2220 / -2220 Lab / Micro Data Result Diagrams: 08/15/22 04:42 08/15/22 04:42 Labs: Laboratory Results - last 24 hr 08/14/22 16:05: B-Natriuretic Peptide > 5000.0 H 08/14/22 18:45: Troponin I High Sens 36 08/15/22 04:42: WBC 5.8, RBC 4.56, Hgb 14.2, Hct 40.6, MCV 89.0, MCH 31.1, MCHC 35.0, RDW Std Deviation 44.0 H, RDW Coeff of Toby 13.5, Plt Count 221, MPV 11.2, Immature Gran % (Auto) 0.300, Neut % (Auto) 68.0, Lymph % (Auto) 20.2, [place] % (Auto) 10.7 H, Eos % (Auto) 0.3, Baso % (Auto) 0.5, Absolute Neuts (auto) 3.9, Absolute Lymphs (auto) 1.17, Nucleated RBC % 0 08/15/22 04:42: Sodium 123 L, Potassium 3.6, Chloride 83 L, Carbon Dioxide 29.0, Anion Gap 11, BUN 29 H, Creatinine 0.82, Estim Creat Clear Calc 47.48, Est GFR (MDRD) Af Amer 88, Est GFR (MDRD) Non-Af 73, BUN/Creatinine Ratio 35.4 H, Glucose 88, Calcium 8.6 Physical Exam Const alert, oriented x3 and no apparent distress Constitutional Narrative: Patient appears her stated age General Appearance: cooperative, well kempt and well developed Orientation / Consciousness: awake, oriented to person, oriented to place and oriented to time HEENT normocephalic and moist oral mucous membranes Eyes PERRL, EOMs intact bilaterally and conjunctivae normal Neck supple, no JVD, thyroid normal and no carotid bruits General: trachea midline Resp normal respiratory effort and clear to auscultation bilaterally Auscultation: Negative for rales, rhonchi or wheezes Cardio regular rate, regular rhythm, S1 normal heart sound, S2 normal heart sound, no murmurs, no rub and no gallops Cardio Narrative: Patient appears to have a paced rhythm on the rhythm strip GI normal to inspection, nondistended, normoactive bowel sounds, soft to palpation, non-tender and non-distended Extremity no clubbing, cyanosis or edema Skin no rashes or lesions noted General Skin Exam: no breakdown Neuro oriented x3, CN's II-XII intact bilaterally, no focal motor deficits and no sensory deficits noted Sensorium / Orientation: awake and alert Speech: speech normal Psych affect normal Assessment & Plan Assessment/Plan (1) Pleural effusion: PLAN: Plan 1. Acute on chronic systolic congestive heart failure-continue IV Bumex at this time #2 ischemic cardiomyopathy-patient's last echocardiogram showed ejection fraction of 10 to 15%, continue present medications #3 coronary artery disease-stable at this time #4 insomnia-this appears to be a chronic problem with the patient, I talked briefly with her about medications for insomnia, at this time I will not change any of her medications. #5 hypoxia secondary to #1-pulse ox will be monitored, oxygen will be adjusted Charges/Coding Visit Charges Inpatient E&M: 02833 Subs Hosp L2
--- NOTE | 2022-08-15 18:50 | NURSING ---
Charting reviewed with Doug Hernandez RN
[2022-08-15] MEDS: MELATONIN 3 MG TABLET PO (21:28)
[2022-08-15] MEDS: Sertraline 50 MG Tablet 25 MG PO (21:28)
[2022-08-15] MEDS: guaiFENesin 600 MG Tablet PO (23:17)
[2022-08-16] VITALS (15 sets, daily range): BP systolic 106–132; BP diastolic 75–97; PULSE 67–108; RESP 12–21; TEMP 36.2–36.8; O2SAT 93–100
--- NOTE | 2022-08-16 00:25 | CPS ---
Pt declines bipap this evening, states she does not need it.
[2022-08-16] MEDS: Acetaminophen 325 MG Tablet PO (01:19)
--- NOTE | 2022-08-16 04:48 | NURSING ---
attempted to wean patient from oxygen, patient desat to 87% and placed back on 2l
[2022-08-16] MEDS: Isosorbide DN 10 MG Tablet 5 MG PO ×3 (05:40→21:07)
[2022-08-16] MEDS: hydrALAZINE 10 MG Tablet PO ×3 (05:41→21:06)
[2022-08-16] MEDS: Aspirin E.C. 81 MG Tablet PO (09:06)
[2022-08-16] MEDS: Carvedilol 3.125 MG TABLET PO ×2 (09:06→21:07)
[2022-08-16] MEDS: Bumetanide 1 MG/4 ML Vial 2 MG IV ×2 (09:06→18:41)
[2022-08-16] MEDS: Enoxaparin 40 MG/0.4 ML Syringe SC (09:07)
[2022-08-16] MEDS: 0.9% Saline Lock 10 ML Syringe IV ×2 (09:09→18:41)
[2022-08-16] MEDS: Spironolactone 25 MG Tablet 12.5 MG PO (16:59)
--- NOTE | 2022-08-16 18:36 | PN.HOSP_ITS ---
Subjective Subjective Patient was seen and examined today, she remains on IV Bumex, she is still requiring low-flow nasal cannula oxygen. I had long discussion with her about taking medications as an outpatient, I encouraged her to take a daily dose of the diuretic, she states she has been intolerant of taking lisinopril and valsartan in the past. I have elected to add Aldactone to her regimen presently. We also talked about her insomnia, I have decided to place her on a small dose of Ambien at night. Objective Data Objective Data Vital Signs: Vital Signs Temp Pulse Resp BP Pulse Ox O2 Del Method O2 Flow Rate 98.0 F 89 16 113/90 H 100 Nasal Cannula 2 08/16/22 16:52 08/16/22 16:58 08/16/22 16:52 08/16/22 16:58 08/16/22 16:52 08/16/22 16:52 08/16/22 16:52 FiO2 21 08/14/22 18:33 Oxygen Flow Rate (L/min) 2 Oxygen Delivery Method Nasal Cannula Weight: 60.8 kg Body Mass Index (BMI) 25.3 Intake & Output: Intake and Output for Last 24 Hours 08/14/22 08/15/22 08/16/22 23:59 23:59 23:59 Intake Total 480 / 480 360 / 360 Output Total 3400 / 3400 450 / 450 Balance -2920 / -2920 -90 / -90 Lab / Micro Data Result Diagrams: 08/15/22 04:42 08/15/22 04:42 Physical Exam Narrative alert, oriented x3 and no apparent distress Constitutional Narrative: Patient appears her stated age General Appearance: cooperative, well kempt and well developed Orientation / Consciousness: awake, oriented to person, oriented to place and oriented to time HEENT normocephalic and moist oral mucous membranes Eyes PERRL, EOMs intact bilaterally and conjunctivae normal Neck supple, no JVD, thyroid normal and no carotid bruits General: trachea midline Resp normal respiratory effort and clear to auscultation bilaterally Auscultation: Negative for rales, rhonchi or wheezes Cardio regular rate, regular rhythm, S1 normal heart sound, S2 normal heart sound, no murmurs, no rub and no gallops Cardio Narrative: Patient appears to have a paced rhythm on the rhythm strip GI normal to inspection, nondistended, normoactive bowel sounds, soft to palpation, non-tender and non-distended Extremity no clubbing, cyanosis or edema Skin no rashes or lesions noted General Skin Exam: no breakdown Neuro oriented x3, CN's II-XII intact bilaterally, no focal motor deficits and no s ensory deficits noted Sensorium / Orientation: awake and alert Speech: speech normal Psych affect normal Assessment & Plan Assessment/Plan (1) CHF (congestive heart failure), NYHA class IV: (2) Pleural effusion: PLAN: Plan 1. Acute on chronic systolic congestive heart failure-continue IV Bumex at this time, I have added on Aldactone to the patient's regimen #2 ischemic cardiomyopathy-patient's last echocardiogram showed ejection fraction of 10 to 15%, continue present medications #3 coronary artery disease-stable at this time #4 insomnia-this appears to be a chronic problem with the patient, I talked briefly with her about medications for insomnia, at this time I have added Ambien at night for sleep #5 hypoxia secondary to #1-pulse ox will be monitored, oxygen will be adjusted Charges/Coding Visit Charges Inpatient E&M: 42232 Subs Hosp L2
--- NOTE | 2022-08-16 19:00 | NURSING ---
Weaned Oxygen from 2L to 1L, patient does not want to ahve oxygen removed at this time. She is starting on Ambien tonight and is anxious about too many changes at once.
--- NOTE | 2022-08-16 20:25 | CPS ---
[1954] Pt. requested pressure increase on BiPAP at this time, so I increased pt.'s pressures to 14/8. Pt. is happy with pressures at this time.
[2022-08-16] MEDS: Sertraline 50 MG Tablet 25 MG PO (21:06)
[2022-08-16] MEDS: Zolpidem Tartrate 5 MG Tablet 2.5 MG PO (21:07)
[2022-08-17] VITALS (10 sets, daily range): BP systolic 105–115; BP diastolic 76–90; PULSE 65–87; RESP 12–19; TEMP 36.7–36.9; O2SAT 92–99
[2022-08-17] MEDS: Isosorbide DN 10 MG Tablet 5 MG PO ×2 (05:09→13:42)
[2022-08-17] MEDS: hydrALAZINE 10 MG Tablet PO ×2 (05:09→13:42)
--- NOTE | 2022-08-17 07:30 | NURSING ---
attempted to wean patient off of 2L of O2, patient desats on room air-2L was reapplied; sats at 96%
[2022-08-17] MEDS: Carvedilol 3.125 MG TABLET PO (09:36)
[2022-08-17] MEDS: Bumetanide 1 MG/4 ML Vial 2 MG IV (09:37)
[2022-08-17] MEDS: 0.9% Saline Lock 10 ML Syringe IV (09:37)
[2022-08-17] MEDS: Enoxaparin 40 MG/0.4 ML Syringe SC (09:37)
[2022-08-17] MEDS: Aspirin E.C. 81 MG Tablet PO (09:37)
[2022-08-17] MEDS: Spironolactone 25 MG Tablet 12.5 MG PO (09:37)
--- NOTE | 2022-08-17 11:45 | DCINST_ITS ---
Discharge Instructions Diet Discharge Diet: No restrictions Activity Discharge Activity: Return to Normal Activity Weight Bearing Status: Full weight bearing Follow Up Care Test Results: Test results from this visit will be discussed in further detail at your follow- up appointment, if applicable. Discharge Plan Admission Admit Date/Time: 08/14/22 16:43 Primary Reason for Your Visit: congestive heart failure Attending Provider: Flip Camarillo Primary Care Provider: Care Physician,No Primary Consulting Providers: Rufino Garza Discharge Orders/Prescriptions Prescriptions: New spironolactone 25 mg Tablet 12.5 mg PO DAILY Qty: 30 0RF zolpidem 5 mg Tablet 2.5 mg PO QHS Qty: 30 0RF Rx Instructions: for sleep bumetanide 0.5 mg tablet 0.5 mg PO DAILY Qty: 30 0RF Continued acetaminophen 325 mg tablet 325 mg PO ONCE PRN (Reason: Pain) isosorbide dinitrate 5 mg tablet 5 mg PO TID Rx Instructions: allow nitrate-free interval of 12-14 hrs per 24-hr period multivitamin Tablet 1 tab PO DAILY melatonin 5 mg capsule 2.5 - 5 mg PO QHS magnesium 250 mg tablet 250 mg PO DAILY hydralazine 10 mg Tablet 10 mg PO TID aspirin 81 MG tablet,delayed release (DR/EC) 81 mg PO DAILY Hold Instructions: Bruising carvedilol 3.125 mg tablet 3.125 mg PO BID guaifenesin [Mucinex] 600 mg Tablet Extended Release 12hr 600 mg PO PRN PRN (Reason: Sinus Symptoms) sertraline 50 mg tablet 25 mg PO QHS metolazone 5 mg Tablet 5 mg PO DAILY PRN PRN (Reason: Weight gain > 2lb) 30 Days Qty: 30 0RF Rx Instructions: Take metolazone if weight increase >2 lb. If weight does not normalize at weight check in 24-48 hours notify Cardiology. ondansetron HCl 4 mg Tablet 4 mg PO Q6H PRN (Reason: Nausea) Discontinued bumetanide 2 mg tablet 1 mg PO DAILY PRN (Reason: FLUID RETENTION) Referrals / Follow Up: Livan Phelps MD [Med Staff - Active Staff] - See Referral Note (as scheduled) Care Physician,No Primary [Primary Care Provider] - Disposition Disposition (needs filled in before D/C Order can be placed): Home, Self Care
--- NOTE | 2022-08-17 11:57 | PCM.DC.SUM ---
Providers Date of Admission: 08/14/22 Date of Discharge: 08/17/22 Primary Care Physician: No Primary Care Phys Reason For Visit: CHF EXACERBATION WITH HYPOXIA Diagnosis Discharge Diagnosis (1) CHF (congestive heart failure), NYHA class IV: Status: Chronic Code(s): I50.9 - Heart failure, unspecified (2) Pleural effusion: Status: Acute Code(s): J90 - Pleural effusion, not elsewhere classified Plan 1. Acute on chronic systolic congestive heart failure-continue IV Bumex at this time, I have added on Aldactone to the patient's regimen #2 ischemic cardiomyopathy-patient's last echocardiogram showed ejection fraction of 10 to 15%, continue present medications #3 coronary artery disease-stable at this time #4 insomnia-this appears to be a chronic problem with the patient, I talked briefly with her about medications for insomnia, at this time I have added Ambien at night for sleep #5 hypoxia secondary to #1-pulse ox will be monitored, oxygen will be adjusted Medications at Discharge Home Medications hydralazine 10 mg tablet 10 mg PO TID bp 02/28/21 acetaminophen 325 mg tablet 325 mg PO ONCE PRN Pain 04/21/21 isosorbide dinitrate 5 mg tablet 5 mg PO TID heart 04/21/21 aspirin 81 mg tablet,delayed release 81 mg PO DAILY heart health 06/12/21 carvedilol 3.125 mg tablet 3.125 mg PO BID blood pressure 06/12/21 guaifenesin 600 mg tablet, extended release 12 hr (Mucinex) 600 mg PO PRN PRN Sinus Symptoms 10/27/21 multivitamin 1 tab PO DAILY supplement 11/14/21 sertraline 50 mg tablet 25 mg PO QHS mental health 01/12/22 metolazone 5 mg tablet 5 mg PO DAILY PRN PRN Weight gain > 2lb 30 days #30 tabs 01/14/22 melatonin 5 mg capsule 2.5 - 5 mg PO QHS sleep 07/04/22 ondansetron HCl 4 mg tablet 4 mg PO Q6H PRN Nausea 07/20/22 magnesium 250 mg tablet 250 mg PO DAILY supplement 07/27/22 bumetanide 0.5 mg tablet 0.5 mg PO DAILY #30 tabs 08/17/22 spironolactone 25 mg tablet 12.5 mg PO DAILY #30 tabs 08/17/22 zolpidem 5 mg tablet 2.5 mg PO QHS #30 tabs 08/17/22 Hospital Course Operations None Procedures None Summary of Care Provided Minutes Spent on Discharge: 32 Hospital Course: 71-year-old white female was seen in the emergency room at [facility] with a 24-hour history of increasing shortness of breath, she has a known ischemic cardiomyopathy, she is only been taking diuretics on an as-needed basis for fluid retention. Patient has an ICD in place. Work-up in the emergency room included a chest x-ray which showed evidence of congestive heart failure, patient's beta natruretic peptide was elevated, patient's troponin was normal. Patient was admitted to PCU, she was placed on IV Bumex, I had several discussions concerning medications with the patient, she refused to take an FLAVIO inhibitor or an ARB due to a past history of problems with these medications. Patient initially was placed on oxygen due to hypoxia, eventually this was able to be weaned off before her discharge. Patient's cardiac medications were adjusted and she was placed on Aldactone and programmed Bumex. Patient was also placed on small amount of Ambien due to chronic insomnia that she complained of. On 08/17/2022, patient was seen and examined: On examination she appeared in good health and spirits, she does not appear to be in any distress. Vital signs as documented. Skin warm and dry and without overt rashes. Neck without JVD, thyroid appears normal, trachea is midline, neck is supple. Lungs clear, normal air movement was noted. Heart exam notable for regular rhythm-paced, normal sounds and absence of murmurs, rubs or gallops. Abdomen unremarkable and without evidence of organomegaly, masses, or abdominal aortic enlargement, bowel sounds are present in all 4 quadrants, no abdominal tenderness was noted. Extremities nonedematous, no cyanosis was noted, no clubbing was noted. Neuro: Cranial nerves II through XII are grossly intact, no focal motor deficits were noted, sensation to light touch and pinprick is intact, motor exam 5/5 throughout. Psych: Patient is alert and oriented x3, she does not appear anxious or depressed, she does not appear agitated. Patient was felt to be stable for discharge on 08/17/2022, appointment was made for her to follow-up with Dr. Phelps in the office in approximately 2 weeks. Weight / BMI Weight Weight: 60.8 kg Body Mass Index (BMI) 25.3 ABG / Lab / Microbiology Data Result Diagrams: 08/15/22 04:42 08/15/22 04:42 D/C Instructions Discharge Diet: No restrictions Weight Bearing Status: Full weight bearing Meaningful Use Info Meaningful Use Diagnoses (Choose all that apply): CHF CHF FLAVIO/ARB ordered at discharge?: No Reason FLAVIO/ARB not ordered?: Allergy Documented LVEF (%): 15 Discharge Plan Admission Admit Date/Time: 08/14/22 16:43 Primary Reason for Your Visit: congestive heart failure Attending Provider: Flip Camarillo Primary Care Provider: Care Physician,No Primary Consulting Providers: Rufino Garza Discharge Orders/Prescriptions Prescriptions: New spironolactone 25 mg Tablet 12.5 mg PO DAILY Qty: 30 0RF zolpidem 5 mg Tablet 2.5 mg PO QHS Qty: 30 0RF Rx Instructions: for sleep bumetanide 0.5 mg tablet 0.5 mg PO DAILY Qty: 30 0RF Continued acetaminophen 325 mg tablet 325 mg PO ONCE PRN (Reason: Pain) isosorbide dinitrate 5 mg tablet 5 mg PO TID Rx Instructions: allow nitrate-free interval of 12-14 hrs per 24-hr period multivitamin Tablet 1 tab PO DAILY melatonin 5 mg capsule 2.5 - 5 mg PO QHS magnesium 250 mg tablet 250 mg PO DAILY hydralazine 10 mg Tablet 10 mg PO TID aspirin 81 MG tablet,delayed release (DR/EC) 81 mg PO DAILY Hold Instructions: Bruising carvedilol 3.125 mg tablet 3.125 mg PO BID guaifenesin [Mucinex] 600 mg Tablet Extended Release 12hr 600 mg PO PRN PRN (Reason: Sinus Symptoms) sertraline 50 mg tablet 25 mg PO QHS metolazone 5 mg Tablet 5 mg PO DAILY PRN PRN (Reason: Weight gain > 2lb) 30 Days Qty: 30 0RF Rx Instructions: Take metolazone if weight increase >2 lb. If weight does not normalize at weight check in 24-48 hours notify Cardiology. ondansetron HCl 4 mg Tablet 4 mg PO Q6H PRN (Reason: Nausea) Discontinued bumetanide 2 mg tablet 1 mg PO DAILY PRN (Reason: FLUID RETENTION) Referrals / Follow Up: Livan Phelps MD [Med Staff - Active Staff] - See Referral Note (as scheduled) Care Physician,No Primary [Primary Care Provider] - Disposition Disposition (needs filled in before D/C Order can be placed): Home, Self Care Charges/Coding Visit Charges Inpatient E&M: 01990 Disch Hosp
--- NOTE | 2022-08-17 12:56 | CASEMGMT ---
Addendum entered by Ita Escoto 08/17/22 13:21: Call to [facility] palliative [facility] and they are updated on pt d/c home today. Clinicals faxed to them at [phone]. Palma MARIE CM Original Note: Pt does not qualify for home oxygen at discharge. This FRANK CM to room and pt states no concerns with going home at time of discharge. Clinicals to be faxed to [facility] palliative as pt is active with them. Pt voices no further questions/concerns/needs. Palma MARIE CM
== END 2022-08-17 15:00 | disposition home or self-care (01) | DRG 291 ==
LOC: ED 15:30 → PCU 17:03
PROVIDERS: Admitting Provider Family Medicine; Emergency Provider Emergency Medicine; Visit Provider Internal Medicine
DX: I11.0 Hypertensive heart disease with heart failure (principal); I50.23 Acute on chronic systolic (congestive) heart failure; E87.1 Hypo-osmolality and hyponatremia; I25.10 Atherosclerotic heart disease of native coronary artery without angina pectoris; I25.5 Ischemic cardiomyopathy; I25.2 Old myocardial infarction; F41.9 Anxiety disorder, unspecified; R09.02 Hypoxemia; F32.A Depression, unspecified; G47.00 Insomnia, unspecified; Z79.82 Long term (current) use of aspirin; Z79.899 Other long term (current) drug therapy; Z87.891 Personal history of nicotine dependence; Z86.16 Personal history of COVID-19; Z95.810 Presence of automatic (implantable) cardiac defibrillator
CPT/HCPCS: 36415; 71045; 80048; 83880; 84484; 85025; 93005; 94002; 94003; 94762; 97802; 99285; A4216

== ENCOUNTER → 2022-09-18 | Outpatient (CLI) | payer MEDICARE, SELFPAY ==
[2022-09-18 16:11] LABS: Anion Gap 5 (5-15); BUN 27 mg/dL (7-18); BUN/Creat Ratio 31.1 RATIO (10-20); Calcium,Total 8.9 mg/dL (8.5-10.1); Chloride 84 mmol/L (98-107); Creatinine, Serum 0.87 mg/dL (0.55-1.02); EST Glomerular Filtration Rate 68 mL/min (>60); Est Glom Filt Rate - Afr Amer 83 mL/min (>60); Glucose 136 mg/dL (74-106); Potassium 2.9 mmol/L (3.5-5.1); Sodium Level 129 mmol/L (136-145)
== END | disposition home or self-care (01) ==
PROVIDERS: Visit Provider Internal Medicine Cardiovascular Disease
DX: I25.5 Ischemic cardiomyopathy (principal); I50.9 Heart failure, unspecified
CPT/HCPCS: 36415; 80048

== ENCOUNTER 2022-09-26 16:25 | Inpatient (IN) | payer MEDICARE, SELFPAY ==
[2022-09-26] VITALS (20 sets, daily range): BP systolic 87–128; BP diastolic 72–100; PULSE 69–95; RESP 12–20; TEMP 32.3–35.7; O2SAT 92–100; BMI 29.5; BMI 24.6
--- NOTE | 2022-09-26 16:37 | CT_ITS ---
STUDY: CT BRAIN WITHOUT CONTRAST REASON FOR EXAM: Female, 71 years old. Altered mental status Individualized dose optimization techniques were used for this CT. TECHNIQUE: Transaxial CT imaging of the brain was performed without administration of intravenous contrast material. COMPARISON: None FINDINGS: There are calcifications around the carotid artery. These are noted in the cavernous carotid arteries. Normal calvarium. Normal soft tissues. There is mild cerebral atrophy with widening of the extra-axial spaces and ventricular dilatation. There are areas of decreased attenuation within the white matter tracts of the supratentorial brain, consistent with microvascular disease changes. Normal basal ganglia and thalami. Normal brainstem. There is mild cerebellar atrophy. There is no intracranial hemorrhage. There are no findings of an acute ischemic infarction. There is sinus disease. ASPECTS Score for Acute Strokes: 07/31 CT/Brain/Head without Contrast IMPRESSION: There are no acute findings. Chronic involutional changes of the brain. Electronically Signed: Sundeep Gomez MD at 17:51 EST ,
--- NOTE | 2022-09-26 16:38 | EKG12_ITS ---
Test Reason : DYSRHYTHMIA Blood Pressure : / mmHG Vent. Rate : 069 BPM Atrial Rate : 069 BPM P-R Int : 170 ms QRS Dur : 212 ms QT Int : 522 ms P-R-T Axes : 000 054 106 degrees QTc Int : 559 ms Atrial-sensed ventricular-paced rhythm Biventricular pacemaker detected Abnormal ECG Confirmed by NICHOLAS ALCARAZ, SENG ([id number]), supervising editor trailer HILL JERNIGAN ([id number]) on 09/28/2022 9:41:21 AM Referred By: CHRISTINE Confirmed By:SENG PETERSON MD
[2022-09-26] MEDS: 0.9% Normal Saline 1,000 ML 1000 ML IV (16:40)
--- NOTE | 2022-09-26 16:41 | EX.ED.CRITCA ---
HPI History of Present Illness Chief Complaint: CPR Informant: EMS Limited: coma Onset/Context/Timing Onset: Today Context: Sudden Onset Timing: Continuous Quality: Unresponsive Location: Generalized Narrative Narrative: Patient presents postcardiac arrest. Patient was cleaning off her front steps when she had a syncopal episode. Friend was with her and noted that she had no pulse. Friend called 911 immediately and started CPR while she was on the phone with material dispatcher. EMS continued CPR and gave 2 rounds of epinephrine. There is a spontaneous return of a pulse. EMS checked a blood sugar and it was normal. EMS reports that the patient has a defibrillator pacemaker and believes that it fired twice. [facility] Medical History Anxiety Atherosclerotic heart disease of [place] coronary artery without angina pectoris CAD (coronary artery disease) CAD (coronary artery disease) Cardiomyopathy, ischemic Cardiomyopathy, ischemic CHF (congestive heart failure), NYHA class IV Coronary artery disease COVID-19 virus infection Depression Essential hypertension Former smoker HTN (hypertension) Hypertension ICD (implantable cardioverter-defibrillator) in place Mitral valve disease Non-ST elevation (NSTEMI) myocardial infarction Non-ST elevation (NSTEMI) myocardial infarction Pneumonia due to COVID-19 virus Presence of biventricular automatic implantable cardioverter defibrillator Home Medications hydralazine 10 mg tablet 10 mg PO TID bp 02/28/21 [History Last Taken 07/20/22] acetaminophen 325 mg tablet 325 mg PO ONCE PRN Pain 04/21/21 [History Last Taken Unknown] isosorbide dinitrate 5 mg tablet 5 mg PO TID heart 04/21/21 [History Last Taken 07/20/22] aspirin 81 mg tablet,delayed release 81 mg PO DAILY heart health 06/12/21 [History Last Taken Unknown] carvedilol 3.125 mg tablet 3.125 mg PO BID blood pressure 06/12/21 [History Last Taken 07/20/22] guaifenesin 600 mg tablet, extended release 12 hr (Mucinex) 600 mg PO PRN PRN Sinus Symptoms 10/27/21 [History Last Taken Unknown] multivitamin 1 tab PO DAILY supplement 11/14/21 [History Last Taken Unknown] sertraline 50 mg tablet 25 mg PO QHS mental health 01/12/22 [History Last Taken Unknown] ondansetron HCl 4 mg tablet 4 mg PO Q6H PRN Nausea 07/20/22 [History Last Taken 07/20/22] magnesium 250 mg tablet 250 mg PO DAILY supplement 07/27/22 [History Last Taken Unknown] bumetanide 0.5 mg tablet 0.5 mg PO DAILY #30 tabs 08/17/22 [Rx Last Taken Unknown] spironolactone 25 mg tablet 12.5 mg PO DAILY #30 tabs 08/17/22 [Rx Last Taken Unknown] zolpidem 5 mg tablet 2.5 mg PO QHS #30 tabs 08/17/22 [Rx Last Taken Unknown] melatonin 5 mg capsule 5 mg PO QHS sleep 09/05/22 [History Last Taken Unknown] metolazone 2.5 mg tablet 5 mg PO .COMPLEX PRN Weight gain > 2lb 30 days #30 tabs 09/19/22 [Rx Last Taken Unknown] potassium chloride 20 mEq tablet,extended release(part/cryst) (Klor-Con M) 20 meq PO DAILY #30 tabs 09/19/22 [Rx Last Taken Unknown] Allergy/AdvReac Type Severity Reaction Status Date / Time Sulfa (Sulfonamide Allergy Rash Verified 09/05/22 15:35 Antibiotics) amiodarone AdvReac Intermediate stomach Verified 09/05/22 15:35 ache amoxicillin AdvReac Other Verified 09/05/22 15:35 Hzdasow-LSH-SnP Reductase AdvReac palpitation Verified 09/05/22 15:35 Inhibitor s [Qfanwqc-Rcq-Wpu Reductase Inhibitor] Family History Father Aneurysm Grandmother Congestive heart failure Brother Diabetes Grandfather Myocardial infarction, Onset Age: 60 Grandfather Myocardial infarction, Onset Age: 60 Mother CVA (cerebral vascular accident) Cancer Hx Lung CA w/ tobacco use history. Other Heart disease Surgical History History of left heart catheterization (LHC) (~01/31/21) Implantable cardioverter-defibrillator (ICD) generator end of life (~07/20/22) S/P implantation of automatic cardioverter/defibrillator (AICD) Social History household members: none Smoking Status: Former smoker how long ago did patient quit smoking: Quit 01/2021 with prior 1/2 ppd since 20 y/o. alcohol intake: never substance use type: does not use caffeine: Yes Type: coffee ROS ROS ED Review of Systems ROS Unobtainable: due to endotracheal tube EXAM Physical Exam Const Vital Signs: 09/26/22 16:27 09/26/22 16:27 09/26/22 16:45 Temperature 96.3 F L 93.8 F L 94.5 F L Temperature Source Temporal Core Core Pulse Rate 89 81 Respiratory Rate 15 14 Blood Pressure 99/89 H 106/85 H Blood Pressure Mean 92 92 Pulse Ox 95 98 Oxygen Delivery Method Mechanical Ventilator Mechanical Ventilator Fraction of Inspired Oxygen (FIO2) 100 100 09/26/22 17:06 09/26/22 17:12 09/26/22 17:00 Temperature 94.4 F L Temperature Source Core Pulse Rate 95 86 88 Respiratory Rate 16 15 Blood Pressure 97/79 97/79 Blood Pressure Mean 85 85 Pulse Ox 92 97 Oxygen Delivery Method Mechanical Ventilator Fraction of Inspired Oxygen (FIO2) 100 100 09/26/22 17:30 09/26/22 17:15 Temperature 94.5 F L 94.7 F L Temperature Source Core Core Pulse Rate 72 95 Respiratory Rate 17 20 H Blood Pressure 97/72 87/78 L Blood Pressure Mean 80 81 Pulse Ox 97 99 Oxygen Delivery Method Mechanical Ventilator Mechanical Ventilator Fraction of Inspired Oxygen (FIO2) 100 100 Positive well nourished and well developed General Appearance ED: well developed HEENT normocephalic and atraumatic Neck Neck Narrative: There is JVD noted bilaterally. Resp Resp Narrative: There are no spontaneous respirations noted. Lungs are equal bilaterally with mechanical ventilation. Cardio regular rate and regular rhythm GI non-distended Palpation: soft Skin Skin Narrative: There is some mottling of the lower extremities bilaterally. There are no abrasions. There is no bleeding. There are no lacerations. MDM MDM MDM Narrative Medical decision making narrative: Patient was intubated with a 7.5 ET tube to 17 cm at the lip using laryngoscope and direct visualization. The endotracheal tube was visualized passing through the vocal cords. There is good air exchange. There is good color change on capnography. Patient did not require any sedation or medications for this. EKG shows a paced rhythm with a rate of 86. There is left bundle branch block pattern. There are no acute ST or T wave changes. CBC shows a hemoglobin of 13.8 and hematocrit 49.3. Comprehensive metabolic profile shows a sodium of 122, potassium of 5.5, chloride of 85, BUN of 39, and creatinine of 1.31. There is moderate hemolysis noted. Patient is getting IV fluids. Total bilirubin was slightly elevated 1.7. AST was 86, ALT was 92, alkaline phosphatase was 151. High-sensitivity troponin was elevated at 153. CT scan of the brain was obtained. There is no acute intracranial abnormality. This was interpreted by the radiologist and reviewed by myself. Portable chest x-ray was obtained. There is 1 view. On my interpretation, there is a left pleural effusion. There is mild pulmonary vascular congestion on the right. The endotracheal tube was 8 cm above the alayna. The orogastric tube was noted to be in the stomach. Radiologist also interpreted the x-ray and agrees. Arterial blood gas showed a pH of 7.302, PCO2 of 35.3, PO2 of 345.4, bicarb of 17.5, and oxygen saturation of 99.9%. Urinalysis shows a leukocyte esterase of 25. There were positive nitrites. There were 10-25 white blood cells and 3+ bacteria. Urine culture was ordered. Patient started on Rocephin. Case was discussed with Dr. Adams from ICU. She recommended adding a BNP and D-dimer. These were ordered. The endotracheal tube was advanced 4 cm. Case was discussed with the hospitalist. She will admit the patient to ICU. Lab Data Attestation: I reviewed the patient's lab results. Labs: Laboratory Results - last 24 hr 09/26/22 09/26/22 09/26/22 16:30 16:30 16:30 WBC 6.8 RBC 5.11 Hgb 15.8 H Hct 49.3 H MCV 96.5 MCH 30.9 MCHC 32.0 RDW Std Deviation 51.5 H RDW Coeff of Toby 14.4 Plt Count 211 MPV 10.9 Immature Gran % (Auto) 1.300 H Neut % (Auto) 66.1 Lymph % (Auto) 21.3 Hand % (Auto) 10.3 H Eos % (Auto) 0.3 Baso % (Auto) 0.7 Absolute Neuts (auto) 4.5 Absolute Lymphs (auto) 1.45 Nucleated RBC % 0.7 PT INR APTT D-Dimer Quant (PE/DVT) Sodium 122 L Potassium 5.5 H Chloride 85 L Carbon Dioxide 25.0 Anion Gap 12 BUN 39 H Creatinine 1.31 H Estim Creat Clear Calc 34.01 Est GFR (MDRD) Af Amer 51 L Est GFR (MDRD) Non-Af 42 L BUN/Creatinine Ratio 29.8 H Glucose 137 H Lactic Acid Calcium 8.7 Total Bilirubin 1.70 H AST 86 H ALT 92 H Alkaline Phosphatase 151 H Total Creatine Kinase 122 Troponin I High Sens 153 H* B-Natriuretic Peptide Total Protein 7.0 Albumin 3.5 Globulin 3.5 Albumin/Globulin Ratio 1.0 Triglycerides 121 Urine Color Urine Clarity Urine pH Ur Specific [place] Urine Protein Urine Glucose (UA) Urine Ketones Urine Occult Blood Urine Nitrite Urine Bilirubin Urine Urobilinogen Ur Leukocyte Esterase Urine RBC Urine WBC Ur Squamous Epith Cells Urine Bacteria Urine Mucus 09/26/22 09/26/22 09/26/22 16:30 16:30 16:45 WBC RBC Hgb Hct MCV MCH MCHC RDW Std Deviation RDW Coeff of Toby Plt Count MPV Immature Gran % (Auto) Neut % (Auto) Lymph % (Auto) Hand % (Auto) Eos % (Auto) Baso % (Auto) Absolute Neuts (auto) Absolute Lymphs (auto) Nucleated RBC % PT 17.0 H INR 1.4 APTT 41.8 H D-Dimer Quant (PE/DVT) 2.99 H* Sodium Potassium Chloride Carbon Dioxide Anion Gap BUN Creatinine Estim Creat Clear Calc Est GFR (MDRD) Af Amer Est GFR (MDRD) Non-Af BUN/Creatinine Ratio Glucose Lactic Acid Cancelled Calcium Total Bilirubin AST ALT Alkaline Phosphatase Total Creatine Kinase Troponin I High Sens B-Natriuretic Peptide 4374.3 H Total Protein Albumin Globulin Albumin/Globulin Ratio Triglycerides Urine Color Urine Clarity Urine pH Ur Specific [place] Urine Protein Urine Glucose (UA) Urine Ketones Urine Occult Blood Urine Nitrite Urine Bilirubin Urine Urobilinogen Ur Leukocyte Esterase Urine RBC Urine WBC Ur Squamous Epith Cells Urine Bacteria Urine Mucus 09/26/22 09/26/22 17:33 17:49 WBC RBC Hgb Hct MCV MCH MCHC RDW Std Deviation RDW Coeff of Toby Plt Count MPV Immature Gran % (Auto) Neut % (Auto) Lymph % (Auto) Hand % (Auto) Eos % (Auto) Baso % (Auto) Absolute Neuts (auto) Absolute Lymphs (auto) Nucleated RBC % PT INR APTT D-Dimer Quant (PE/DVT) Sodium Potassium Chloride Carbon Dioxide Anion Gap BUN Creatinine Estim Creat Clear Calc Est GFR (MDRD) Af Amer Est GFR (MDRD) Non-Af BUN/Creatinine Ratio Glucose Lactic Acid 5.6 H* Calcium Total Bilirubin AST ALT Alkaline Phosphatase Total Creatine Kinase Troponin I High Sens B-Natriuretic Peptide Total Protein Albumin Globulin Albumin/Globulin Ratio Triglycerides Urine Color Yellow Urine Clarity Cloudy Urine pH 6.5 Ur Specific [place] 1.020 Urine Protein 500 H Urine Glucose (UA) 50 H Urine Ketones 5 H Urine Occult Blood 250 H Urine Nitrite Positive H Urine Bilirubin Negative Urine Urobilinogen Normal Ur Leukocyte Esterase 25 H Urine RBC > 100 SEEN Urine WBC 10-25 SEEN Ur Squamous Epith Cells 0-5 SEEN Urine Bacteria 3+ Urine Mucus 0 SEEN ABG Data ABG results: ABG 09/26/22 17:14 Specimen Type ART Sample Site L Radial pH 7.30 L Bicarbonate Actual 17.5 L Total CO2 19 Base Excess -9 L O2 Saturation 100 H O2 % 100 ABG pCO2 35.3 ABG pO2 345 H* Carroll Test Positive Respiration Rate 12 O2 Delivery Device Adult Vent Vent Mode AC Tidal Volume 450 POC PEEP 5 Crit Call To/Read Back Yes Blood Gas Notified Whom schwiger Radiography Chest X-Ray - ED: 1 View, Read by ED Physician, Read by Radiologist and Left Effusion Diagnostic Testing: Clinical Impression(s) from Imaging Studies Brain CT 09/26/22 16:37 IMPRESSION: There are no acute findings. Chronic involutional changes of the brain. Electronically Signed: Sundeep Gomez MD at 17:51 EST , Chest X-Ray 09/26/22 17:40 IMPRESSION: Pulmonary findings appear improved. There is an endotracheal tube in place. The tip is 88 mm above the alayna. This is high. It should be pushed down by 56 mm Electronically Signed: Sundeep Gomez MD at 18:04 EST , EKG Initial EKG: Attestation: I personally reviewed and interpreted this EKG as follows: Interpretation: Paced (86) and LBBB Prior EKG tracings: available for review Prior: Unchanged (08/14/2022) Procedures Intubations Intubation Method: orotracheal Intubation Verification: Positive color change and Bilateral breath sounds confirmed Intubation Complications: no complications Critical Care Time Critical Care Time: Yes Critical care time (excluding procedures): 30-74 minutes (44), Including time spent:, Discussing w/Patient &/or Family/Shipping And Receiving Coordinator, Discussing w/Consultants, Arranging Admission or Transfer and Performing Direct Patient Care at Bedside Discharge Plan Dx/Rx/DC Orders Clinical Impression: Cardiac arrest, ICD (implantable cardioverter-defibrillator) in place, Hyponatremia, Respiratory arrest, Acute kidney injury, Urinary tract infection Disposition Disposition: Acute Care Hospital [facility] Discharge Date/Time: 09/26/22 20:51
[2022-09-26 16:52] LABS: Absolute Lymphocyte Count 1.45 X10^3/uL (0.83-4.51); Absolute Neutrophil Count 4.5 X10^3/uL (2.0-7.7); Basophil# 0.05 X10^3/uL; Basophil% 0.7 % (0-1); Eosinophil# 0.02 X10^3/uL; Eosinophils% 0.3 % (0-5); Hematocrit 49.3 % (37-47); Hemoglobin 15.8 g/dL (12.0-15.0); Lymphocyte # 1.45 X10^3/ul (0.83-4.51); Lymphocyte % 21.3 % (19-41); Mean Corpuscular Hgb 30.9 pg (27.0-32.0); Mean Corpuscular Volume 96.5 fL (81-99); Mean Platelet Vol. 10.9 fl (6.2-12.0); Monocyte% 10.3 % (0-10); NRBC Flagged by Analyzer 0.7 % (0-5); Neutrophil % 66.1 % (47-70); Platelet Count 211 K/mm3 (150-450); RBC Distribution Width CV 14.4 % (11.6-14.6); RBC Distribution Width SD 51.5 fl (35.1-43.9); Red Blood Count 5.11 M/mm3 (4.2-5.4); White Blood Count 6.8 K/mm3 (4.4-11.0)
[2022-09-26] MEDS: Propofol 10MG/Ml 1,000 MG/100 ML Bottle 4.7 MG CONT INF (17:06)
--- NOTE | 2022-09-26 17:08 | CM.ED ---
RICK responded to patient's room. Patient had CPR by squad. Currently on vent. RICK called patient's son at 4:57pm and left voice mail message for him to call this sports writer. RICK called Osmel Elder, patient's brother, and updated him on patient. He said that generally he knows that his sister did not want extraordinary measures and no life support. RICK will call Osmel back in 10 minutes as he is currently walking the dog. RICK called Osmel back and updated him that patient is going for CAT scan. RICK will update Osmel as soon as possible. RICK called patient's son, Ralf at 5:19pm. No answer. RICK did not leave message as social work professor had left message earlier. RICK updated RN, sales performance analyst and MD Ashley STUART
[2022-09-26 17:19] LABS: AST(SGOT) 86 U/L (15-37); Alanine Aminotransfer ALT/SGPT 92 U/L (13-56); Albumin, Serum 3.5 g/dL (3.2-5.0); Alkaline Phosphatase 151 U/L (45-117); Anion Gap 12 (5-15); BUN 39 mg/dL (7-18); BUN/Creat Ratio 29.8 RATIO (10-20); Calcium,Total 8.7 mg/dL (8.5-10.1); Chloride 85 mmol/L (98-107); Creatinine, Serum 1.31 mg/dL (0.55-1.02); EST Glomerular Filtration Rate 42 mL/min (>60); Est Glom Filt Rate - Afr Amer 51 mL/min (>60); Estimated Creatinine Clearance 34.01 ml/min; Globulin 3.5 g/dL (2.2-4.2); Glucose 137 mg/dL (74-106); Potassium 5.5 mmol/L (3.5-5.1); Sodium Level 122 mmol/L (136-145); Troponin-I HS (w/2H Reflex) 153 pg/mL (3.0-54.0)
[2022-09-26 17:25] LABS: Allen Test Positive; Base Excess -9 mmol/L (-2 to +2); Bicarbonate 17.5 mmol/L (22-26); Blood Gas Specimen Type ART; FI02 100; Mode AC; O2 Delivery Device Adult Vent; PEEP 5; PO2 345 mmHG (75-100); RR 12; SITE L Radial; SO2 100 % (95-99); Total Carbon Dioxide 19 mmol/L; Vt 450; pCO2 35.3 mmHg (35-45)
--- NOTE | 2022-09-26 17:40 | RAD_ITS ---
STUDY: X-RAY CHEST REASON FOR EXAM: Female, 71 years old. CHEST PAIN Dyspnea TECHNIQUE: XR Chest 1 View COMPARISON: 08.14.22 FINDINGS: There are bilateral pleural effusions. There are bilateral infiltrates. There is a left sided pacemaker batterypack. There is an endotracheal tube in place. The tip is 88 mm above the alayna. This is high. It should be pushed down by 56 mm. There is an NGT in place. There is moderate cardiac enlargement. Normal mediastinum and sp. Normal visualized pulmonary arteries. There is atherosclerotic calcification of the aortic arch with tortuosity. There are diffuse degenerative changes of the visualized thoracic spine. There is degenerative osteoarthritis of the bilateral shoulders. There is no demonstrated abnormality of the visualized soft tissue structures of the upper abdomen. RAD/Chest 1 View (Portable) IMPRESSION: Pulmonary findings appear improved. There is an endotracheal tube in place. The tip is 88 mm above the alayna. This is high. It should be pushed down by 56 mm Electronically Signed: Sundeep Gomez MD at 18:04 EST ,
--- NOTE | 2022-09-26 17:46 | NURSING ---
Patient fingers and toes are extremely cyanotic and blackened. Bilateral legs are weeping.
--- NOTE | 2022-09-26 17:55 | NURSING ---
09/27/22 @ 0814- Updated given to patients brotherOsmel. All questions answered at this time. Patients son will be primary contact for patient going forward.
[2022-09-26 17:58] LABS: Mucous, Urine 0 SEEN /hpf (<or=2+)
--- NOTE | 2022-09-26 18:01 | HP.PCM.HOS_ITS ---
HPI - General General Date of Admission: 09/26/22 Date of Service: 09/26/22 Chief Complaint: Cardiac arrest - 1 day HPI Narrative TIFFANY CARDONA, is a 71 F who presents as an out of hospital cardiac arrest. Patient has past medical history of CAD/ischemic cardiomyopathy, EF 10- 15%,status post AICD and pacemaker placement. Patient was said not to be a candidate for multivessel PCI, bypass surgery or LVAD therapy. Patient reportedly is under palliative care. She had refused hospice in the past. Patient was said to be cleaning her steps today. Her friend was with her. She then suffered a cardiac arrest. Her friend started CPR. The EMS were called. Patient did receive 2 rounds of epinephrine. She regained spontaneous circulati on. An airway was placed by the EMS and brought to the ED. Patient was then intubated. In the emergency room, patient was noted to have cool extremities which appear mottled. Her feet appear dusky and almost ischemic. Initial vitals show blood pressure of 99/89, heart rate 89, respiratory 15, t emperature 96.3 F. His CBCD was unremarkable. INR was 1.4, D-dimer was 2.99. ABG showed pH of 7.30, PCO2 was 19, PO2 was 100%. Sodium was 122, potassium 5.5, chloride 85, bicarbonate 25, BUN 39, creatinine 1.31, creatinine 0.87, total bilirubin 1.7, AST 86, ALT 92, ALP 151. Initial troponin was 153, subsequent troponin was 692, BNP was 437 4.3. Urinalysis showed cloudy urine, nitrite positive, leukocyte esterase 25 WBC count 10-25, urine bacteria 3+. CT of the head showed chronic involuntary changes. Chest x-ray shows bilateral pleural effusions, bilateral infiltrates. CTA of the chest showed bilateral pneumonia, bilateral pleural effusions, no PE. [facility] Medical History Anxiety Atherosclerotic heart disease of [place] coronary artery without angina pectoris CAD (coronary artery disease) CAD (coronary artery disease) Cardiomyopathy, ischemic Cardiomyopathy, ischemic CHF (congestive heart failure), NYHA class IV Coronary artery disease COVID-19 virus infection Depression Essential hypertension Former smoker HTN (hypertension) Hypertension ICD (implantable cardioverter-defibrillator) in place Mitral valve disease Non-ST elevation (NSTEMI) myocardial infarction Non-ST elevation (NSTEMI) myocardial infarction Pneumonia due to COVID-19 virus Presence of biventricular automatic implantable cardioverter defibrillator Home Medications hydralazine 10 mg tablet 10 mg PO TID bp 02/28/21 [History Last Taken 07/20/22] acetaminophen 325 mg tablet 325 mg PO ONCE PRN Pain 04/21/21 [History Last Taken Unknown] isosorbide dinitrate 5 mg tablet 5 mg PO TID heart 04/21/21 [History Last Taken 07/20/22] aspirin 81 mg tablet,delayed release 81 mg PO DAILY heart health 06/12/21 [History Last Taken Unknown] carvedilol 3.125 mg tablet 3.125 mg PO BID blood pressure 06/12/21 [History Last Taken 07/20/22] guaifenesin 600 mg tablet, extended release 12 hr (Mucinex) 600 mg PO PRN PRN Sinus Symptoms 10/27/21 [History Last Taken Unknown] multivitamin 1 tab PO DAILY supplement 11/14/21 [History Last Taken Unknown] sertraline 50 mg tablet 25 mg PO QHS mental health 01/12/22 [History Last Taken Unknown] ondansetron HCl 4 mg tablet 4 mg PO Q6H PRN Nausea 07/20/22 [History Last Taken 07/20/22] magnesium 250 mg tablet 250 mg PO DAILY supplement 07/27/22 [History Last Taken Unknown] bumetanide 0.5 mg tablet 0.5 mg PO DAILY #30 tabs 08/17/22 [Rx Last Taken Unknown] spironolactone 25 mg tablet 12.5 mg PO DAILY #30 tabs 08/17/22 [Rx Last Taken Unknown] zolpidem 5 mg tablet 2.5 mg PO QHS #30 tabs 08/17/22 [Rx Last Taken Unknown] melatonin 5 mg capsule 5 mg PO QHS sleep 09/05/22 [History Last Taken Unknown] metolazone 2.5 mg tablet 5 mg PO .COMPLEX PRN Weight gain > 2lb 30 days #30 tabs 09/19/22 [Rx Last Taken Unknown] potassium chloride 20 mEq tablet,extended release(part/cryst) (Klor-Con M) 20 meq PO DAILY #30 tabs 09/19/22 [Rx Last Taken Unknown] Allergy/AdvReac Type Severity Reaction Status Date / Time Sulfa (Sulfonamide Allergy Rash Verified 09/05/22 15:35 Antibiotics) amiodarone AdvReac Intermediate stomach Verified 09/05/22 15:35 ache amoxicillin AdvReac Other Verified 09/05/22 15:35 Opckbxi-AHP-BwJ Reductase AdvReac palpitation Verified 09/05/22 15:35 Inhibitor s [Gvwvpvo-Vgi-Vgw Reductase Inhibitor] Family History Father Aneurysm Grandmother Congestive heart failure Brother Diabetes Grandfather Myocardial infarction, Onset Age: 60 Grandfather Myocardial infarction, Onset Age: 60 Mother CVA (cerebral vascular accident) Cancer Hx Lung CA w/ tobacco use history. Other Heart disease Surgical History History of left heart catheterization (LHC) (~01/31/21) Implantable cardioverter-defibrillator (ICD) generator end of life (~07/20/22) S/P implantation of automatic cardioverter/defibrillator (AICD) Social History household members: none Smoking Status: Former smoker how long ago did patient quit smoking: Quit 01/2021 with prior 1/2 ppd since 20 y/o. alcohol intake: never substance use type: does not use caffeine: Yes Type: coffee ROS Review of Systems ROS Unobtainable: due to encephalopathy and due to endotracheal tube Vital Signs Vital Signs Vital Signs: 09/26/22 16:27 09/26/22 16:27 09/26/22 16:45 Temperature 96.3 F L 93.8 F L Temperature Source Temporal Core Pulse Rate 89 81 Respiratory Rate 15 14 Blood Pressure 99/89 H 106/85 H Blood Pressure Mean 92 92 Pulse Ox 95 98 Oxygen Delivery Method Mechanical Ventilator Mechanical Ventilator Fraction of Inspired Oxygen (FIO2) 100 100 09/26/22 17:06 09/26/22 17:12 09/26/22 17:00 Temperature Temperature Source Pulse Rate 95 86 88 Respiratory Rate 16 15 Blood Pressure 97/79 97/79 Blood Pressure Mean 85 85 Pulse Ox 92 97 Oxygen Delivery Method Mechanical Ventilator Fraction of Inspired Oxygen (FIO2) 100 100 09/26/22 17:30 09/26/22 17:15 Temperature Temperature Source Pulse Rate 72 95 Respiratory Rate 17 20 H Blood Pressure 97/72 87/78 L Blood Pressure Mean 80 81 Pulse Ox 97 99 Oxygen Delivery Method Mechanical Ventilator Mechanical Ventilator Fraction of Inspired Oxygen (FIO2) 100 100 Weight Weight: 77.9 kg Body Mass Index (BMI) 29.5 Physical Exam Narrative Physical exam: General: Sedated, intubated, mechanically ventilated HEENT: Atraumatic Oral: Moist Mucosa Neck: Supple Lungs: Clear to auscultation anteriorly Cardiovascular: HS I+II, regular, no murmurs Abdomen: Bowel Sounds Present, Soft, Non Tender Extremities: all of her toes appear very dark, especially on the right foot, very cold to touch, pulses not palpable. Bilateral fingers and hands are mottled, cold to touch, dusky Skin: No rashes, No breakdown Neurological:Intubated Psych/Mental Status: Intubated Results Lab / Micro Data Result Diagrams: 09/26/22 16:30 09/26/22 16:30 Labs: Laboratory Results - last 24 hr 09/26/22 16:30: WBC 6.8, RBC 5.11, Hgb 15.8 H, Hct 49.3 H, MCV 96.5, MCH 30.9, MCHC 32.0, RDW Std Deviation 51.5 H, RDW Coeff of Toby 14.4, Plt Count 211, MPV 10.9, Immature Gran % (Auto) 1.300 H, Neut % (Auto) 66.1, Lymph % (Auto) 21.3, Isabella % (Auto) 10.3 H, Eos % (Auto) 0.3, Baso % (Auto) 0.7, Absolute Neuts (auto) 4.5, Absolute Lymphs (auto) 1.45, Nucleated RBC % 0.7 09/26/22 16:30: Sodium 122 L, Potassium 5.5 H, Chloride 85 L, Carbon Dioxide 25.0, Anion Gap 12, BUN 39 H, Creatinine 1.31 H, Estim Creat Clear Calc 34.01, Est GFR (MDRD) Af Amer 51 L, Est GFR (MDRD) Non-Af 42 L, BUN/Creatinine Ratio 29.8 H, Glucose 137 H, Calcium 8.7, Total Bilirubin 1.70 H, AST 86 H, ALT 92 H, Alkaline Phosphatase 151 H, Troponin I High Sens 153 H*, Total Protein 7.0, Albumin 3.5, Globulin 3.5, Albumin/Globulin Ratio 1.0 09/26/22 16:45: Lactic Acid Cancelled ABG Data ABG results: ABG 09/26/22 17:14 Specimen Type ART Sample Site L Radial pH 7.30 L Bicarbonate Actual 17.5 L Total CO2 19 Base Excess -9 L O2 Saturation 100 H O2 % 100 ABG pCO2 35.3 ABG pO2 345 H* Carroll Test Positive Respiration Rate 12 O2 Delivery Device Adult Vent Vent Mode AC Tidal Volume 450 POC PEEP 5 Crit Call To/Read Back Yes Blood Gas Notified Whom fatoumata Radiology Impression Brain CT 09/26/22 16:37 IMPRESSION: There are no acute findings. Chronic involutional changes of the brain. Electronically Signed: Sundeep Gomez MD at 17:51 EST Reading Location ID and State: [facility] / [place] , Service support , Assessment & Plan Assessment/Plan (1) Cardiac arrest: PLAN: Plan 1. Acute out of hospital cardiac arrest, likely secondary to arrhythmia Patient has underlining history of severe ischemic cardiomyopathy, EF of 10 to 15%, not amendable to any CABG or multivessel PCI or LVAD. Status post intubation, on mechanical ventilator Initial EKG shows paced rhythm, left bundle branch block. Subsequent EKG shows ST segment elevation in V3 to V4 Bnpep >4000 Patient's troponin went from 153 to 692; Acute PE ruled out with CTA chest Started on heparin drip Will admit to ICU, foundry melt supervisor consult, cardiology consult 2D echo, trend troponins, rectal aspirin, lasix 40mgIV BID Will get AICD interrogated 2. Acute critical limb ischemia, feet more than hands, probably secondary to shunting of blood during cardiopulmonary arrest versus thromboembolic event from probable left ventricular thrombus in the setting of severe LV dysfunction from ischemic cardiomyopathy D-dimer elevated at 2.99 Will continue on heparin drip, arterial doppler, vascular consult 3. Bilateral infiltrates seen on chest CTA, probable pneumonia Continue IV ceftriaxone and azithromycin Sputum cultures are pending Check urine Legionella spironolactone on streptococcal antigen 4. EBONY, likely secondary to #1 Admitting creatinine is 1.31, from baseline of 0.87 Will trend 5. Hyponatremia/hyperkalemia secondary to #4 We will repeat blood work 6. Elevated LFTs likely secondary to 1, will trend 7. Hypertension, now relatively hypotensive, will hold off on Coreg, spironolactone, hydralazine 8. Probable acute UTI, analysis is suggestive, continue IV ceftriaxone 9. DVT PPx- Heparin drip 10. GI PPx- Famotidine IV Code status -patient has been intubated now. Patient was previously a DNR-CCA, no intubation. There needs to be a family discussion going forward on her code status as patient was receiving palliative care for her severe comorbid conditions. Charges/Coding Visit Charges Inpatient E&M: 80351 Init Hosp L3
[2022-09-26 18:12] LABS: Lactic Acid 5.6 mmol/L (0.4-1.9)
--- NOTE | 2022-09-26 18:14 | EKG12_ITS ---
Test Reason : CP CODE Blood Pressure : / mmHG Vent. Rate : 086 BPM Atrial Rate : 086 BPM P-R Int : 138 ms QRS Dur : 172 ms QT Int : 468 ms P-R-T Axes : 043 -43 114 degrees QTc Int : 560 ms Atrial-sensed ventricular-paced rhythm Biventricular pacemaker detected Abnormal ECG Confirmed by NICHOLAS ALCARAZ, SENG ([id number]), features editor HILL JERNIGAN ([id number]) on 09/28/2022 9:41:36 AM Referred By: CHRISTINE Confirmed By:SENG PETERSON MD
[2022-09-26 18:17] LABS: Color, Urine Yellow (Yellow); Glucose, Dipstick 50 mg/dl (Normal); Ketone-Dipstick 5 mg/dl (Negative); Leukocyte Esterase-Dipstick 25 /ul (Negative); Nitrite-Dipstick Positive (Negative); Occult Blood-Urine 250 /ul (Negative); Protein-Dipstick 500 mg/dl (Negative); Urine Bilirubin Dipstick Negative (Negative); Urine Clarity Cloudy (Clear); Urine Urobilinogen Normal (Normal); Urine pH 6.5 (5.0 - 8.0)
[2022-09-26 18:18] LABS: Red Blood Cells-Urine > 100 SEEN /hpf (0-5)
[2022-09-26 18:20] LABS: Bacteria 3+ /hpf (None Seen); Squamous Epithelial Cells - UA 0-5 SEEN /hpf (5-10); White Blood Cells 10-25 SEEN /hpf (0-5)
--- NOTE | 2022-09-26 18:24 | ART_ITS ---
Reason For Study: Decreased Pedal Pulses Procedure A bilateral lower extremity continuous wave Doppler with analog waveform analysis and ankle brachial indexes. Left Segmental Pressures Left posterior tibial artery = 99mmHg. Left dorsalis pedis artery = 94mmHg. Right Segmental Pressures Right brachial= 106mmHg. Right posterior tibial artery = 112mmHg. Right dorsalis pedis artery = 110mmHg. Indices The right ankle brachial index by the posterior tibial artery is 1.06. The right ankle brachial index by the dorsalis pedis is 1.04. The left ankle brachial index by the posterior tibial artery is 0.93. The left ankle brachial index by the dorsalis pedis is 0.89. VL/Ankle Brachial Index Interpretation Summary Right JESSICA 1.06, normal. Doppler/PVR waveforms of the right ankle normal at rest . Digit waveforms diminished, pedal/digit disease vs spasm. Left JESSICA 0.93, mild arterial insufficiency. Doppler/PVR waveforms of the left a nkle mildly diminished at rest. Ordering Physician: Jeimy Devi Referring Physician: JEIMY DEVI MD Performed By: Josseline Varela RDJOSE/RVT
[2022-09-26 18:31] LABS: International Normalized Ratio 1.4
[2022-09-26 18:32] LABS: Partial Thromboplast Time 41.8 Seconds (24.1-36.2)
[2022-09-26 18:35] LABS: CPK Total, Creatine Kinase 122 U/L (26-192); Triglycerides 121 mg/dL
[2022-09-26] MEDS: Heparin Injection (Vial) 5,000 UNIT/ML VIAL 5000 UNIT IV (18:36)
[2022-09-26] MEDS: HEPARIN/D5w 25,000 UNITS 25,000 UNITS/250 ML IV.SOLN. 11 UNITS CONT INF (18:36)
[2022-09-26 18:44] LABS: D-Dimer Quantitative (DVT/PE) 2.99 FEU/ug/m (0.27-0.49)
--- NOTE | 2022-09-26 18:45 | CT_ITS ---
EXAM: CT ANGIOGRAPHY CHEST WITHOUT AND WITH INTRAVENOUS CONTRAST CLINICAL INDICATION: Elevated D-dimer chest pain TECHNIQUE: Helically acquired angiography images were obtained of the chest without and with intravenous contrast. This CT exam was performed using one or more of the following dose reduction techniques: automated exposure control, adjustment of the mA and/or kV according to patient size, and/or use of iterative reconstruction technique. This report was created using [employer] report generation technology. MIP reconstructed images were created and reviewed. CONTRAST: IV 100mL Isovue-370 RADIATION DOSE: CTDIvol = 17.40 mGy, DLP = 349.83 mGy-cm COMPARISON: 01.29.21 FINDINGS: PULMONARY ARTERIES: No demonstrated pulmonary embolism or arterial dissection. AORTA: There is atherosclerotic calcification of the aortic arch with tortuosity and elongation of the aortic arch and descending thoracic aorta. Normal in caliber. No evidence of dissection. GREAT VESSELS OF AORTIC ARCH: Unremarkable. Normal in caliber. No evidence of dissection. LUNGS AND PLEURAL SPACES: There is bilateral pneumonia. Bilateral pleural effusions. No mass. HEART: Cardiomegaly. This has become significantly worse since the prior study. There are calcifications of the coronary arteries. No pericardial effusion. No signs of right heart strain, ratio of right ventricle to left ventricle measures less than 1. MEDIASTINUM: Unremarkable. No mediastinal or hilar adenopathy. Esophagus is unremarkable. No hiatal hernia. THYROID: Unremarkable. No thyroid lesions. BONES/JOINTS: There are degenerative changes of the shoulders. There are multi-level degenerative changes of the thoracic spine. No suspicious lytic or blastic abnormality. TUBES, LINES AND DEVICES: ET tube and NG tube in place. There is a left sided pacemaker battery pack. CT/CTA Chest W/WO Contrast IMPRESSION: 1. No demonstrated pulmonary embolism or arterial dissection. 2. There is bilateral pneumonia. Bilateral pleural effusions. 3. Cardiomegaly. This has become significantly worse since the prior study. Electronically Signed: Sundeep Gomez MD at 21:24 EST ,
[2022-09-26 18:48] LABS: Reflex Troponin-HS? (from REC) Y
[2022-09-26] MEDS: Ceftriaxone 1 GM/50 ML BAG IV (19:02)
[2022-09-26 19:45] LABS: Troponin-I HS 692 pg/mL (3.0-54.0)
[2022-09-26 21:40] LABS: Reflex Lactate? Y
[2022-09-26] MEDS: 0.9% Normal Saline 1,000 ML 75 ML IV (22:06)
--- NOTE | 2022-09-26 22:16 | ECHOD_ITS ---
Reason For Study: CARDIAC ARREST Procedure This was a 2D Doppler, Color Flow transthoracic echocardiogram. The exam was of adequate technical quality. Exam performed portable in ICU/CCU. Left Ventricle Severely dilated left ventricle. Severe segmental systolic dysfunction (see wall motion). The estimated ejection fraction is 10 %. Stage 2 diastolic dysfunction. Anterio-Basal: Hypokinetic. Lateral-Basal: Hypokinetic. Posterior-Basal: Hypokinetic. Infero-Basal: Akinetic. Basal inferoseptal: Hypokinetic. Basal anteroseptal: Akinetic. Mid-Anterior : Akinetic. Mid-Lateral : Hypokinetic. Mid-Posterior: Akinetic. Mid-Inferior: Akinetic. Mid-inferoseptal : Akinetic. Mid- anteroseptal : Akinetic. [place] : Akinetic. Right Ventricle Normal RV size. ICD or pacer leads identified within the right ventricle. Normal systolic function. Atria The left atrium is moderately enlarged. The right atrium is mildly enlarged. ICD or pacer leads identified within the right atrium. No doppler evidence for ASD. Mitral Valve There is mild mitral annular calcification. Mild diffuse mitral valve thickening. Moderately severe (3+) eccentric mitral valve insufficiency. Tricuspid Valve Normal tricuspid valve. Moderate (2+) tricuspid valve insufficiency. Right ventricular systolic pressure estimated to be 44 mmHg. Aortic Valve Trisinus/trileaflet aortic valve. Mild focal aortic valve calcification. Pulmonic Valve The pulmonic valve is not well visualized. Trivial eccentric pulmonic valve insufficiency. Great Vessels The aortic root is not well visualized. Pericardium/Pleural No pericardial effusion. Echo lucency compatible with a pleural effusion. MMode/2D Measurements & Calculations RVDd: 3.7 cm LAV(MOD-bp): 101.8 ml LVAd ap4: 67.3 cm2 LAV(MOD-bp) Indexed: 63.2 ml/m2 LVLd ap4: 10.3 cm LAV(MOD-sp2): 95.8 ml EDV(MOD-sp4): 365.8 ml LAV(MOD-sp4): 98.1 ml EDV(sp4-el): 371.5 ml LVAs ap4: 65.6 cm2 LVLs ap4: 10.7 cm ESV(MOD-sp4): 336.8 ml ESV(sp4-el): 341.2 ml EF(MOD-sp4): 7.9 % EF(sp4-el): 8.1 % SV(MOD-sp4): 29.0 ml SV(sp4-el): 30.2 ml LA A4 area: 29.2 cm2 LA dimension(2D): 4.5 cm RA A4 area: 21.7 cm2 Time Measurements MV dec time: 0.13 sec Doppler Measurements & Calculations MV E max alberto: 99.1 cm/sec Lat Peak E' Alberto: 8.1 cm/sec Med Peak E' Alberto: 6.0 cm/sec MV A max alberto: 106.9 cm/sec E/E' lat: 12.2 E/E' med: 16.6 MV E/A: 0.93 MV V2 max: 114.8 cm/sec MV dec slope: 766.5 cm/sec2 Ao V2 max: 93.4 cm/sec MV max P.3 mmHg Ao max P.5 mmHg MV V2 mean: 87.0 cm/sec Ao V2 mean: 62.8 cm/sec MV mean P.2 mmHg Ao mean P.8 mmHg MV V2 VTI: 32.4 cm Ao V2 VTI: 12.8 cm AV (velocity ratio): 0.68 LV V1 max: 73.9 cm/sec MR max alberto: 479.5 cm/sec TR max alberto: 300.1 cm/sec LV V1 max P.2 mmHg MR max P.0 mmHg TR max P.0 mmHg LV V1 mean P.0 mmHg LV V1 mean: 45.6 cm/sec LV V1 VTI: 8.7 cm ECHO/Echo Complete Interpretation Summary Severely dilated left ventricle. Severe segmental systolic dysfunction (see wall motion). The estimated ejection fraction is 10 %. The left atrium is moderately enlarged. The right atrium is mildly enlarged. There is mild mitral annular calcification. Mild diffuse mitral valve thickening. Moderately severe (3+) eccentric mitral valve insufficiency. Moderate (2+) tricuspid valve insufficiency. Mild focal aortic valve calcification. Trivial eccentric pulmonic valve insufficiency. Echo lucency compatible with a pleural effusion. Right ventricular systolic pressure estimated to be 44 mmHg. Stage 2 diastolic dysfunction. ICD or pacer leads identified within the right atrium ICD or pacer leads identified within the right ventricle. Comment: Based upon the 2D echocardiographic images obtained: No obvious intrac ardiac mass lesion/thrombus identified. Ordering Physician: Jeimy Devi Referring Physician: DEVENDRA PCP Performed By: Christy Guerra RCS
[2022-09-26] MEDS: Chlorhexidine 15 ML PO (22:30)
[2022-09-26 23:02] LABS: Lactic Acid 5.8 mmol/L (0.4-1.9)
[2022-09-26] MEDS: LORazepam 2 MG/ML Syringe IV (23:31)
[2022-09-26] MEDS: Furosemide 40 MG/4 ML Vial IV (23:46)
[2022-09-26] MEDS: 0.9% Saline Lock 10 ML Syringe IV (23:47)
[2022-09-26] MEDS: levETIRAcetam IV 1,000 MG/100 ML BAG 400 MG IV (23:50)
[2022-09-27] VITALS (38 sets, daily range): BP systolic 80–146; BP diastolic 60–114; PULSE 78–91; RESP 12–30; TEMP 35.5–37.7; O2SAT 91–100
[2022-09-27 01:21] LABS: Troponin-I HS 2132 pg/mL (3.0-54.0)
[2022-09-27] MEDS: LORazepam 2 MG/ML Syringe IV ×5 (02:00→21:33)
[2022-09-27 02:05] LABS: Anion Gap 16 (5-15); BUN 42 mg/dL (7-18); BUN/Creat Ratio 36.5 RATIO (10-20); Calcium,Total 8.9 mg/dL (8.5-10.1); Chloride 90 mmol/L (98-107); Creatinine, Serum 1.15 mg/dL (0.55-1.02); EST Glomerular Filtration Rate 49 mL/min (>60); Est Glom Filt Rate - Afr Amer 60 mL/min (>60); Estimated Creatinine Clearance 35.49 ml/min; Glucose 104 mg/dL (74-106); Potassium 5.1 mmol/L (3.5-5.1); Sodium Level 123 mmol/L (136-145)
[2022-09-27] MEDS: 0.9% Saline Lock 10 ML Syringe IV ×5 (02:12→21:34)
[2022-09-27 02:19] LABS: Absolute Lymphocyte Count 0.42 X10^3/uL (0.83-4.51); Absolute Neutrophil Count 10.9 X10^3/uL (2.0-7.7); Basophil# 0.02 X10^3/uL; Basophil% 0.2 % (0-1); Hematocrit 45.1 % (37-47); Hemoglobin 15.2 g/dL (12.0-15.0); Lymphocyte # 0.42 X10^3/ul (0.83-4.51); Lymphocyte % 3.5 % (19-41); Mean Corp Hgb Conc 33.7 g/dL (32-36); Mean Corpuscular Hgb 31.1 pg (27.0-32.0); Mean Corpuscular Volume 92.2 fL (81-99); Mean Platelet Vol. 10.7 fl (6.2-12.0); Monocyte# 0.61 X10^3/uL; Monocyte% 5.1 % (0-10); NRBC Flagged by Analyzer 0 % (0-5); Neutrophil # 10.92 X10^3/uL (2.7-7.7); Neutrophil % 90.8 % (47-70); POSITIVE DIFFERENTIAL YES; Platelet Count 207 K/mm3 (150-450); RBC Distribution Width CV 14.2 % (11.6-14.6); RBC Distribution Width SD 47.3 fl (35.1-43.9); Red Blood Count 4.89 M/mm3 (4.2-5.4)
[2022-09-27 02:21] LABS: Differential Indicated SCAN CRITERIA MET
--- NOTE | 2022-09-27 02:37 | NURSING ---
This RN, along with charger, attempted to draw blood on pt multiple times from 0030 to 0130. PTT due at 0030. Lab unable to run specimens due to inadequate amount of blood. Lab to send assistant sales center manager to attempt to draw pt's blood.
[2022-09-27 03:36] LABS: Differential Comment SCANNED
[2022-09-27 03:48] LABS: ALB/GLOB Ratio 0.9 RATIO (0.9-2.4); AST(SGOT) 111 U/L (15-37); Alanine Aminotransfer ALT/SGPT 98 U/L (13-56); Albumin, Serum 2.7 g/dL (3.2-5.0); Alkaline Phosphatase 122 U/L (45-117); Anion Gap 11 (5-15); BUN 44 mg/dL (7-18); BUN/Creat Ratio 38.9 RATIO (10-20); Calcium,Total 8.3 mg/dL (8.5-10.1); Chloride 90 mmol/L (98-107); Creatinine, Serum 1.13 mg/dL (0.55-1.02); EST Glomerular Filtration Rate 50 mL/min (>60); Est Glom Filt Rate - Afr Amer 61 mL/min (>60); Estimated Creatinine Clearance 36.12 ml/min; Globulin 2.9 g/dL (2.2-4.2); Glucose 145 mg/dL (74-106); Potassium 5.1 mmol/L (3.5-5.1); Protein, Total 5.6 g/dL (6.4-8.2); Sodium Level 124 mmol/L (136-145)
[2022-09-27 03:56] LABS: Partial Thromboplast Time > 200.0 Seconds (24.1-36.2)
--- NOTE | 2022-09-27 06:41 | EKG12_ITS ---
Test Reason : EKG CHANGES Blood Pressure : / mmHG Vent. Rate : 084 BPM Atrial Rate : 084 BPM P-R Int : 168 ms QRS Dur : 196 ms QT Int : 466 ms P-R-T Axes : 000 -13 075 degrees QTc Int : 550 ms Atrial-sensed ventricular-paced rhythm Biventricular pacemaker detected Abnormal ECG Confirmed by BRAEDEN ALCARAZ, MIL ([id number]), restaurant expeditor HILL JERNIGAN ([id number]) on 10/07/2022 7:45:25 AM Referred By: MAURO CISNEROS Confirmed By:MIL DERAS MD
--- NOTE | 2022-09-27 07:08 | EX.PCM.CONCC ---
Assessment & Plan Assessment/Plan (1) Cardiac arrest: (2) Acute kidney injury: (3) CHF (congestive heart failure), NYHA class IV: (4) Anoxic brain injury: PLAN: Plan RECOMMENDATIONS: 1. Await echocardiogram and pacemaker interrogation 2. Wean sedation as tolerated 3. Await EEG 4. Follow neuro exam 5. No plans for extubation given mental status 6. Await family arrival to verify CODE and organ donation STATUS IMPRESSIONS: 1. Cardiac arrest of unclear etiology Patient does have an extensive cardiac history in the past status post pacemaker/defibrillator. Patient's last known EF was 10 to 15%. Differential would include arrhythmia, embolic event from LV thrombus or hypoxic respiratory failure. Exact details and downtime are not clear at this time, but patient does appear to be neurologically devastated with myoclonus and intermittent spinal responses. Patient appears to be hemodynamically stable at this time. No plans to extubate given mental status. Cardiology is following. Patient has been maintained on a heparin drip. CT of the chest is suggestive of chronic pleural effusions 2. Possible UTI versus pneumonia UA was suggestive of possible UTI. Patient also has some consolidation on CT of the chest. Unclear if this is related to compression artifact associated with pleural effusions. Patient also received CPR, so pulmonary contusion would be a concern. Patient is currently on empiric antibiotics. 3. Acute kidney injury Patient's renal function appears to be improving after the acute event. Admitting creatinine was elevated at 1.3. Patient's baseline appears to be around 0.9. Patient's urine output is doing okay. Patient did have some hyponatremia on presentation, but this appears to be improving also. 4. Probable anoxic brain injury Patient does have some intermittent cranial nerve reflexes, but currently is obtunded with very little spontaneous movement. EEG has been ordered. [facility] bank is aware of the patient's status. Family is reportedly incoming from out of state. 5. Possible limb ischemia/hypertension/peripheral vascular disease/advanced age Complicates care, management, recovery and prognosis. Antihypertensives have been held for now. Patient is on a heparin drip to help with peripheral perfusion. Patient with significant metabolic acidosis on presentation. Family is reportedly incoming to discuss goals of therapy. TIME: 44 minutes of critical care time spent addressing patient's cardiac arrest, possible UTI, acute kidney injury, anoxic brain injury, review of all data and collaboration with care team HPI Consult Data Date of Consult: 09/27/22 HPI Narrative Reason for Consultation: Cardiac arrest HPI Narrative: TIFFANY CARDONA is a 71 F, with past medical history listed below, who presents to [facility] on 09/26/2022 secondary to a witnessed cardiac arrest. Patient reportedly was cleaning off her front steps and had a syncopal episode. Patient reportedly had a bystander immediately started CPR 911 was called. EMS reportedly continued with CPR for an additional 8 minutes and gave 2 rounds of epi before ROSC. Blood sugars were reportedly normal at that time. Patient was perceived to have firing of her pacemaker/defibrillator twice during the event. In the ER, patient was afebrile, normotensive and not tachycardic. Patient was immediately intubated for airway protection. EKG showed a left bundle branch. Laboratory work-up showed a white blood cell count of 6.8, hemoglobin of 15.8 and platelets of 211. Sodium was low at 122 with a chloride of 85. Potassium was 5.5 and creatinine was 1.3. Initial troponin was slightly elevated at 153 and liver enzymes were relatively unremarkable. D-dimer was elevated at 2.99 and BNP was significantly elevated at 4374. Lactate was 5.6 and UA was suggestive of UTI. ABG at that time showed partially compensated metabolic acidosis with increased AA gradient. Chest x-ray was suggestive of endotracheal tube being high, so this was advanced. Patient subsequently had a CTA of the chest with results listed below. CT of the head showed no acute changes. Patient was then admitted to the intensive care unit. Since being in the intensive care unit, patient has had episodes of perceived myoclonus. Patient was treated with Ativan with some improvement. Patient has remained hemodynamically stable. Patient did have significant mottling of the lower extremities and hands. Per nursing, this is somewhat improved overnight and now there is dusky areas in the midfoot and hands with a ruddiness/coolness of the legs and hands. Patient is not following any commands. Patient has withdrawn to painful stimuli in the upper extremities. No cough or gag has been noted. Patient has not had any spontaneous movement, so was not restrained at this time. Family is reportedly on their way in from out of state Unable to obtain review of systems secondary to mental status [facility] Medical History (Updated 09/27/22 @ 10:[address] Sidney Hodgson MD) Anxiety Atherosclerotic heart disease of [place] coronary artery without angina pectoris CAD (coronary artery disease) CAD (coronary artery disease) Cardiomyopathy, ischemic Cardiomyopathy, ischemic CHF (congestive heart failure), NYHA class IV Coronary artery disease COVID-19 virus infection Depression Essential hypertension Former smoker HTN (hypertension) Hypertension ICD (implantable cardioverter-defibrillator) in place Mitral valve disease Non-ST elevation (NSTEMI) myocardial infarction Non-ST elevation (NSTEMI) myocardial infarction Pneumonia due to COVID-19 virus Presence of biventricular automatic implantable cardioverter defibrillator Home Medications hydralazine 10 mg tablet 10 mg PO TID bp 02/28/21 [History Last Taken 07/20/22] acetaminophen 325 mg tablet 325 mg PO ONCE PRN Pain 04/21/21 [History Last Taken Unknown] isosorbide dinitrate 5 mg tablet 5 mg PO TID heart 04/21/21 [History Last Taken 07/20/22] aspirin 81 mg tablet,delayed release 81 mg PO DAILY heart health 06/12/21 [History Last Taken Unknown] carvedilol 3.125 mg tablet 3.125 mg PO BID blood pressure 06/12/21 [History Last Taken 07/20/22] guaifenesin 600 mg tablet, extended release 12 hr (Mucinex) 600 mg PO PRN PRN Sinus Symptoms 10/27/21 [History Last Taken Unknown] multivitamin 1 tab PO DAILY supplement 11/14/21 [History Last Taken Unknown] sertraline 50 mg tablet 25 mg PO QHS mental health 01/12/22 [History Last Taken Unknown] ondansetron HCl 4 mg tablet 4 mg PO Q6H PRN Nausea 07/20/22 [History Last Taken 07/20/22] magnesium 250 mg tablet 250 mg PO DAILY supplement 07/27/22 [History Last Taken Unknown] bumetanide 0.5 mg tablet 0.5 mg PO DAILY #30 tabs 08/17/22 [Rx Last Taken Unknown] spironolactone 25 mg tablet 12.5 mg PO DAILY #30 tabs 08/17/22 [Rx Last Taken Unknown] zolpidem 5 mg tablet 2.5 mg PO QHS #30 tabs 08/17/22 [Rx Last Taken Unknown] melatonin 5 mg capsule 5 mg PO QHS sleep 09/05/22 [History Last Taken Unknown] metolazone 2.5 mg tablet 5 mg PO .COMPLEX PRN Weight gain > 2lb 30 days #30 tabs 09/19/22 [Rx Last Taken Unknown] potassium chloride 20 mEq tablet,extended release(part/cryst) (Klor-Con M) 20 meq PO DAILY #30 tabs 09/19/22 [Rx Last Taken Unknown] Allergy/AdvReac Type Severity Reaction Status Date / Time Sulfa (Sulfonamide Allergy Rash Verified 09/05/22 15:35 Antibiotics) amiodarone AdvReac Intermediate stomach Verified 09/05/22 15:35 ache amoxicillin AdvReac Other Verified 09/05/22 15:35 Fbbfyci-QGQ-JzK Reductase AdvReac palpitation Verified 09/05/22 15:35 Inhibitor s [Rglnkan-Hyt-Rgd Reductase Inhibitor] Family History Father Aneurysm Grandmother Congestive heart failure Brother Diabetes Grandfather Myocardial infarction, Onset Age: 60 Grandfather Myocardial infarction, Onset Age: 60 Mother CVA (cerebral vascular accident) Cancer Hx Lung CA w/ tobacco use history. Other Heart disease Surgical History History of left heart catheterization (LHC) (~01/31/21) Implantable cardioverter-defibrillator (ICD) generator end of life (~07/20/22) S/P implantation of automatic cardioverter/defibrillator (AICD) Social History household members: none Smoking Status: Former smoker how long ago did patient quit smoking: Quit 01/2021 with prior 1/2 ppd since 20 y/o. alcohol intake: never substance use type: does not use caffeine: Yes Type: coffee ROS Review of Systems ROS Unobtainable: due to endotracheal tube and due to mental status Physical Exam Const no apparent distress Constitutional Narrative: Breathing with the ventilator. Some withdrawal to painful stimuli General Appearance: patient mechanically ventilated Orientation / Consciousness: obtunded HEENT normocephalic and head/scalp atraumatic Eyes conjunctivae normal Eyes Narrative: Slight periorbital edema Neck full ROM and no lymphadenopathy Chest inspection of chest normal Resp normal respiratory effort and no use of accessory muscles Auscultation: Negative for rales, rhonchi or wheezes Cardio regular rate, regular rhythm, S1 normal heart sound, S2 normal heart sound, no murmurs, no rub and no gallops Cardio Narrative: Pacemaker noted GI normal to inspection, nondistended, normoactive bowel sounds Extremity Extremity Narrative: Saul lower extremities. Ischemic hands and toes Skin General Skin Exam: mottling and venous stasis Neuro Neuro Narrative: No cough or gag at this time. Pupils are sluggish. Psych Mood & Affect: flat affect Lab / Micro Data Attestation: I reviewed the patient's lab results. Result Diagrams: 09/27/22 02:10 09/27/22 03:23 Labs: Laboratory Results - last 24 hr 09/26/22 16:30: WBC 6.8, RBC 5.11, Hgb 15.8 H, Hct 49.3 H, MCV 96.5, MCH 30.9, MCHC 32.0, RDW Std Deviation 51.5 H, RDW Coeff of Toby 14.4, Plt Count 211, MPV 10.9, Immature Gran % (Auto) 1.300 H, Neut % (Auto) 66.1, Lymph % (Auto) 21.3, [place] % (Auto) 10.3 H, Eos % (Auto) 0.3, Baso % (Auto) 0.7, Absolute Neuts (auto) 4.5, Absolute Lymphs (auto) 1.45, Nucleated RBC % 0.7 09/26/22 16:30: Sodium 122 L, Potassium 5.5 H, Chloride 85 L, Carbon Dioxide 25.0, Anion Gap 12, BUN 39 H, Creatinine 1.31 H, Estim Creat Clear Calc 34.01, Est GFR (MDRD) Af Amer 51 L, Est GFR (MDRD) Non-Af 42 L, BUN/Creatinine Ratio 29.8 H, Glucose 137 H, Calcium 8.7, Total Bilirubin 1.70 H, AST 86 H, ALT 92 H, Alkaline Phosphatase 151 H, Troponin I High Sens 153 H*, Total Protein 7.0, Albumin 3.5, Globulin 3.5, Albumin/Globulin Ratio 1.0 09/26/22 16:30: Total Creatine Kinase 122, Triglycerides 121 09/26/22 16:30: PT 17.0 H, INR 1.4, APTT 41.8 H, D-Dimer Quant (PE/DVT) 2.99 H* 09/26/22 16:30: B-Natriuretic Peptide 4374.3 H 09/26/22 16:45: Lactic Acid Cancelled 09/26/22 17:33: Lactic Acid 5.6 H* 09/26/22 17:49: Urine Color Yellow, Urine Clarity Cloudy, Urine pH 6.5, Ur Specific [place] 1.020, Urine Protein 500 H, Urine Glucose (UA) 50 H, Urine Ketones 5 H, Urine Occult Blood 250 H, Urine Nitrite Positive H, Urine Bilirubin Negative, Urine Urobilinogen Normal, Ur Leukocyte Esterase 25 H, Urine RBC > 100 SEEN, Urine WBC 10-25 SEEN, Ur Squamous Epith Cells 0-5 SEEN, Urine Bacteria 3+, Urine Mucus 0 SEEN 09/26/22 19:05: Troponin I High Sens 692 H* 09/26/22 22:02: Lactic Acid 5.8 H* 09/27/22 00:40: Sodium 123 L, Potassium 5.1, Chloride 90 L, Carbon Dioxide 17.0 L, Anion Gap 16 H, BUN 42 H, Creatinine 1.15 H, Estim Creat Clear Calc 35.49, Est GFR (MDRD) Af Amer 60, Est GFR (MDRD) Non-Af 49 L, BUN/Creatinine Ratio 36.5 H, Glucose 104, Calcium 8.9 09/27/22 00:40: Troponin I High Sens 2132 H* 09/27/22 01:50: APTT Cancelled 09/27/22 02:10: WBC 12.0 H, RBC 4.89, Hgb 15.2 H, Hct 45.1, MCV 92.2, MCH 31.1, MCHC 33.7 D, RDW Std Deviation 47.3 H, RDW Coeff of Toby 14.2, Plt Count 207, MPV 10.7, Immature Gran % (Auto) 0.400, Neut % (Auto) 90.8 H, Lymph % (Auto) 3.5 L, [place] % (Auto) 5.1, Eos % (Auto) 0.0, Baso % (Auto) 0.2, Absolute Neuts (auto) 10.9 H, Absolute Lymphs (auto) 0.42 L, Nucleated RBC % 0, Differential Comment SCANNED 09/27/22 03:23: Sodium 124 L, Potassium 5.1, Chloride 90 L, Carbon Dioxide 23.0, Anion Gap 11, BUN 44 H, Creatinine 1.13 H, Estim Creat Clear Calc 36.12, Est GFR (MDRD) Af Amer 61, Est GFR (MDRD) Non-Af 50 L, BUN/Creatinine Ratio 38.9 H, Glucose 145 H, Calcium 8.3 L, Total Bilirubin 1.30 H, AST 111 H, ALT 98 H, Alkaline Phosphatase 122 H, Total Protein 5.6 L, Albumin 2.7 L, Globulin 2.9, Albumin/Globulin Ratio 0.9 09/27/22 03:23: APTT > 200.0 H* Micro: Microbiology 09/26/22 19:10 Urine Catheter - Catheter Legionella Antigen - Final 09/26/22 19:10 Urine Catheter - Catheter Streptococcus pneumoniae Antigen (M - Final ABG Data ABG results: ABG 09/26/22 17:14 Specimen Type ART Sample Site L Radial pH 7.30 L Bicarbonate Actual 17.5 L Total CO2 19 Base Excess -9 L O2 Saturation 100 H O2 % 100 ABG pCO2 35.3 ABG pO2 345 H* Carroll Test Positive Respiration Rate 12 O2 Delivery Device Adult Vent Vent Mode AC Tidal Volume 450 POC PEEP 5 Crit Call To/Read Back Yes Blood Gas Notified Whom schwiger Rhythm Strip Rhythm Strip: Paced Rate: [address] 09/26/22 16:37 IMPRESSION: There are no acute findings. Chronic involutional changes of the brain. Electronically Signed: Sundeep Gomez MD at 17:51 EST , Chest X-Ray 09/26/22 17:40 IMPRESSION: Pulmonary findings appear improved. There is an endotracheal tube in place. The tip is 88 mm above the alayna. This is high. It should be pushed down by 56 mm Electronically Signed: Sundeep Gomez MD at 18:04 EST , Chest CTA 12/06/22 18:45 IMPRESSION: 1. No demonstrated pulmonary embolism or arterial dissection. 2. There is bilateral pneumonia. Bilateral pleural effusions. 3. Cardiomegaly. This has become significantly worse since the prior study. Electronically Signed: Sundeep Gomez MD at 21:24 EST Reading Location ID and State: [facility] / [place] , Service support , Charges/Coding Procedures Hospitalists Procedures: [id number] [facility] Care 1st Hr
--- NOTE | 2022-09-27 08:00 | PCM.CONS.C ---
Assessment & Plan Assessment/Plan (1) Cardiac arrest: PLAN: The patient experienced a cardiac arrest. The etiology is uncertain at this time. It is unclear as to whether or not the patient experienced a primary acute coronary syndrome event that led to a cardiac dysrhythmia event. It is unclear as to whether or not the patient had a primary cardiac dysrhythmia event based upon her underlying atherosclerotic coronary artery disease and ischemic mediated cardiomyopathy. It is unclear as to whether or not the patient may have formed a left ventricular thrombus that potentially lead to embolic phenomena leading to the changes seen in her extremities. At the present time the patient remains in the ICU, she remains mechanically intubated and ventilated, she remains sedated, she remains on medical support as deemed as needed. Her cardiac enzymes are being followed. They have elevated. This may be secondary to a combination of the aforementioned related concerns as to whether or not she had a primary acute coronary syndrome event versus a primary cardiac dysrhythmia event and her ICD discharging. She is going to be further evaluated with a transthoracic echocardiogram to reassess her left ventricular wall motion and systolic function as well as to evaluate for any obvious evidence of an intracardiac thrombus. A request has been made to have the patient's ICD interrogated to assist with diagnosing as to whether or not the patient had an underlying cardiac dysrhythmia that may have led to her event. In the interim the patient continues under the care of pulmonology and critical care medicine. She remains mechanically intubated and ventilated at this time. There is concern as to the status of the patient's underlying neurologic function. Unfortunately, based upon the patient's previous history and taking into consideration her current events/condition her overall prognosis remains poor. (2) Coronary artery disease: PLAN: The patient has a history of underlying CAD. She has been extensively evaluated for this noninvasively and invasively locally and at [facility]. She has been declined for any form of revascularization therapy. She is continue conservative medical management. (3) Cardiomyopathy, ischemic: PLAN: The patient has a history of an underlying ischemic mediated cardiomyopathy. She has been evaluated extensively for this as noted above. She has been declined by [facility] for any type of LVAD support. She is continue conservative medical management as tolerated. She does have a biventricular ICD in place. (4) CHF (congestive heart failure), NYHA class IV: PLAN: The patient has a history of chronic systolic CHF. She has had episodes of acute on chronic systolic CHF. She is continued medical management. (5) ICD (implantable cardioverter-defibrillator) in place: PLAN: The patient does have an ICD in place. Her ICD will be interrogated to help determine whether or not the patient had underlying cardiac dysrhythmias that may have led to her acute event. (6) Mitral valve disease: PLAN: The patient has a history of mitral valve disease. Again she has been evaluated for this as noted above. She is continue conservative medical management. (7) Essential hypertension: PLAN: The patient has had a history of hypertension. Her vital signs will be monitored and her medicines adjusted as deemed appropriate. Addt'l Comments The patient's case has been discussed and reviewed with Dr. Devi of the [facility] staff and Dr. Hodgson of the [facility] pulmonology/critical care staff. This note was generated using a voice recognition system and there may be incorrect words, spelling or punctuation that were not noted when reviewing the office note prior to saving. HPI Consult Data Date of Consult: 09/27/22 HPI Narrative HPI Narrative: TIFFANY CARDONA, is a 71 year old white female who presents presents for evaluation of a cardiac arrest superimposed upon a history of an underlying diagnosis of CAD (considered not a candidate by [facility] for PCI or CABG), ischemic mediated cardiomyopathy (considered not a candidate by [facility] for LVAD support), chronic systolic CHF, status post biventricular ICD placement/subsequent ICD generator change, mitral valve disease, and hypertension. According to the [facility] medical staff the patient was at home, cleaning her steps , when she was witnessed by a friend to suddenly collapse. The bystander initiated EMS and CPR. The EMS arrived and subsequently proceeded to perform BLS/ACLS. This apparently included initiation of IV epinephrine and mechanical intubation/ventilation. Status post these procedures the patient was reported as regaining circulation. The patient was subsequently evaluated at the [facility] emergency department and subsequently admitted to the [facility] ICU. Since the patient's admission she has remained in the ICU with mechanical innovation/ventilation. Her cardiac enzymes have been monitored. Her troponin I levels have increased. Her cardiac rhythm appears to have demonstrated findings compatible with an underlying electronic ventricular paced rhythm compatible with her biventricular ICD. Of note her biventricular ICD was interrogated on an outpatient basis on 08-01-2022. At that time she had no reported episodes of VT/VF (since a previous interrogation that demonstrated that she did have a prior episode that led to a previous hospitalization on 06-29-2022) and she was biventricular pacing 100% of the time with a battery longevity of approximately 11 years. She has had multiple ECGs performed. They have demonstrated underlying electronic ventricular paced rhythm. Her initial ECG did demonstrate a concern of additional ST segment changes of uncertain significance as it was superimposed upon her underlying biventricular paced rhythm. Her subsequent ECGs have demonstrated these findings to be less so. Her chest x-ray was reported by radiology as demonstrating, from a cardiac standpoint, moderate cardiac enlargement. A chest CT scan was also performed which was reported by radiology as demonstrating concerns of bilateral pneumonia, bilateral pleural effusions, no pulmonary embolus or arterial dissection, and findings compatible with cardiomegaly. As her appearance at the time of admission, which demonstrated the appearance of diminished peripheral perfusion to her upper and lower extremities/digits (lower extremities greater than upper extremities), there was concern as to whether or not the patient may had some form of hypoperfusion or embolic phenomena. With the concern of possible underlying embolic phenomena she was subsequently placed on IV heparin. The patient has been on medical management. She has admitted in the past that she has adjusted her medications, more so her diuretics, based upon her daily weights and associated symptoms. The patient has also been reported as being under palliative care. She has not yet elected to proceed with hospice care. [facility] Medical History (Updated 09/27/22 @ 08:[address] Livan Phelps MD) Anxiety Atherosclerotic heart disease of unga coronary artery without angina pectoris CAD (coronary artery disease) CAD (coronary artery disease) Cardiomyopathy, ischemic Cardiomyopathy, ischemic CHF (congestive heart failure), NYHA class IV Coronary artery disease COVID-19 virus infection Depression Essential hypertension Former smoker HTN (hypertension) Hypertension ICD (implantable cardioverter-defibrillator) in place Mitral valve disease Non-ST elevation (NSTEMI) myocardial infarction Non-ST elevation (NSTEMI) myocardial infarction Pneumonia due to COVID-19 virus Presence of biventricular automatic implantable cardioverter defibrillator Home Medications hydralazine 10 mg tablet 10 mg PO TID bp 02/28/21 [History Last Taken 07/20/22] acetaminophen 325 mg tablet 325 mg PO ONCE PRN Pain 04/21/21 [History Last Taken Unknown] isosorbide dinitrate 5 mg tablet 5 mg PO TID heart 04/21/21 [History Last Taken 07/20/22] aspirin 81 mg tablet,delayed release 81 mg PO DAILY heart health 06/12/21 [History Last Taken Unknown] carvedilol 3.125 mg tablet 3.125 mg PO BID blood pressure 06/12/21 [History Last Taken 07/20/22] guaifenesin 600 mg tablet, extended release 12 hr (Mucinex) 600 mg PO PRN PRN Sinus Symptoms 10/27/21 [History Last Taken Unknown] multivitamin 1 tab PO DAILY supplement 11/14/21 [History Last Taken Unknown] sertraline 50 mg tablet 25 mg PO QHS mental health 01/12/22 [History Last Taken Unknown] ondansetron HCl 4 mg tablet 4 mg PO Q6H PRN Nausea 07/20/22 [History Last Taken 07/20/22] magnesium 250 mg tablet 250 mg PO DAILY supplement 07/27/22 [History Last Taken Unknown] bumetanide 0.5 mg tablet 0.5 mg PO DAILY #30 tabs 08/17/22 [Rx Last Taken Unknown] spironolactone 25 mg tablet 12.5 mg PO DAILY #30 tabs 08/17/22 [Rx Last Taken Unknown] zolpidem 5 mg tablet 2.5 mg PO QHS #30 tabs 08/17/22 [Rx Last Taken Unknown] melatonin 5 mg capsule 5 mg PO QHS sleep 09/05/22 [History Last Taken Unknown] metolazone 2.5 mg tablet 5 mg PO .COMPLEX PRN Weight gain > 2lb 30 days #30 tabs 09/19/22 [Rx Last Taken Unknown] potassium chloride 20 mEq tablet,extended release(part/cryst) (Klor-Con M) 20 meq PO DAILY #30 tabs 09/19/22 [Rx Last Taken Unknown] Allergy/AdvReac Type Severity Reaction Status Date / Time Sulfa (Sulfonamide Allergy Rash Verified 09/05/22 15:35 Antibiotics) amiodarone AdvReac Intermediate stomach Verified 09/05/22 15:35 ache amoxicillin AdvReac Other Verified 09/05/22 15:35 Flogxwe-AVE-NcN Reductase AdvReac palpitation Verified 09/05/22 15:35 Inhibitor s [Uyvjrbs-Iow-Phf Reductase Inhibitor] Family History Father Aneurysm Grandmother Congestive heart failure Brother Diabetes Grandfather Myocardial infarction, Onset Age: 60 Grandfather Myocardial infarction, Onset Age: 60 Mother CVA (cerebral vascular accident) Cancer Hx Lung CA w/ tobacco use history. Other Heart disease Surgical History History of left heart catheterization (LHC) (~01/31/21) Implantable cardioverter-defibrillator (ICD) generator end of life (~07/20/22) S/P implantation of automatic cardioverter/defibrillator (AICD) Social History household members: none Smoking Status: Former smoker how long ago did patient quit smoking: Quit 01/2021 with prior 1/2 ppd since 20 y/o. alcohol intake: never substance use type: does not use caffeine: Yes Type: coffee ROS Review of Systems ROS Unobtainable: other Details: Due to the patient being in the ICU and being sedated on mechanical intubation/ventilation Physical Exam HEENT normocephalic and head/scalp atraumatic Neck no JVD Resp Auscultation: rhonchi throughout (Scattered upper airway sounds) Cardio regular rate, regular rhythm, S1 normal heart sound and S2 normal heart sound Heart Sounds: murmur systolic III/ high-pitched mid left sternal border, apex and axilla GI normal to inspection, nondistended, normoactive bowel sounds Extremity General Extremity: edema bilateral lower extremity Details: moderate (Somewhat keagan/ischemic appearing) Skin Skin Narrative: As noted above Risk Stratification Risk Stratification Applicable: Yes Age >/= 65: Yes >/= 3 CAD Risk Factors (HTN, HLD, DM, family hx of CAD, or current smoker): Yes Aspirin Use in the Past 7 Days: Yes Severe Angina (>/= episodes in 24 hours): No EKG ST Changes >/= 0.5mm: No Positive Cardiac Marker: Yes KATINA Risk Stratification Score: 4 KATINA % Risk: 20% Risk Procedure Criteria Type of Procedure Procedure Type: Elective Elective Risks - COVID COVID Risk Discussion: The surgeon/proceduralist and patient have discussed in detail the risk of exposure to and/or potential harm posed by the COVID-19 virus with having a surgery/procedure at this time versus the risk of delaying the surgery/procedure. It is not possible to know either the risk of delaying the surgery or procedure or chance of getting an infection with perfect accuracy, but a joint decision was made between the patient and the surgeon/proceduralist to proceed at this time with the scheduled surgery/procedure as indicated on the consent form. Objective Data Vital Signs: Vital Signs Temp Pulse Resp BP Pulse Ox O2 Del Method FiO2 98.9 F 87 12 106/80 94 Mechanical Ventilator 21 09/27/22 07:00 09/27/22 07:31 09/27/22 07:31 09/27/22 07:00 09/27/22 07:31 09/27/22 07:00 09/27/22 07:31 Oxygen Delivery Method Mechanical Ventilator Weight: 134 lb 4.8 oz Body Mass Index (BMI) 24.6 Intake & Output: Intake and Output for Last 24 Hours 09/25/22 09/26/22 09/27/22 23:59 23:59 23:59 Intake Total 1121.64 / 1128.84 858.10 / 858.10 Output Total 200 / 200 325 / 325 Balance 921.64 / 928.84 533.10 / 533.10 Lab / Micro Data Result Diagrams: 09/27/22 02:10 09/27/22 03:23 Labs: Laboratory Results - last 24 hr 09/26/22 16:30: WBC 6.8, RBC 5.11, Hgb 15.8 H, Hct 49.3 H, MCV 96.5, MCH 30.9, MCHC 32.0, RDW Std Deviation 51.5 H, RDW Coeff of Toby 14.4, Plt Count 211, MPV 10.9, Immature Gran % (Auto) 1.300 H, Neut % (Auto) 66.1, Lymph % (Auto) 21.3, Mcdowell % (Auto) 10.3 H, Eos % (Auto) 0.3, Baso % (Auto) 0.7, Absolute Neuts (auto) 4.5, Absolute Lymphs (auto) 1.45, Nucleated RBC % 0.7 09/26/22 16:30: Sodium 122 L, Potassium 5.5 H, Chloride 85 L, Carbon Dioxide 25.0, Anion Gap 12, BUN 39 H, Creatinine 1.31 H, Estim Creat Clear Calc 34.01, Est GFR (MDRD) Af Amer 51 L, Est GFR (MDRD) Non-Af 42 L, BUN/Creatinine Ratio 29.8 H, Glucose 137 H, Calcium 8.7, Total Bilirubin 1.70 H, AST 86 H, ALT 92 H, Alkaline Phosphatase 151 H, Troponin I High Sens 153 H*, Total Protein 7.0, Albumin 3.5, Globulin 3.5, Albumin/Globulin Ratio 1.0 09/26/22 16:30: Total Creatine Kinase 122, Triglycerides 121 09/26/22 16:30: PT 17.0 H, INR 1.4, APTT 41.8 H, D-Dimer Quant (PE/DVT) 2.99 H* 09/26/22 16:30: B-Natriuretic Peptide 4374.3 H 09/26/22 16:45: Lactic Acid Cancelled 09/26/22 17:33: Lactic Acid 5.6 H* 09/26/22 17:49: Urine Color Yellow, Urine Clarity Cloudy, Urine pH 6.5, Ur Specific Nucla 1.020, Urine Protein 500 H, Urine Glucose (UA) 50 H, Urine Ketones 5 H, Urine Occult Blood 250 H, Urine Nitrite Positive H, Urine Bilirubin Negative, Urine Urobilinogen Normal, Ur Leukocyte Esterase 25 H, Urine RBC > 100 SEEN, Urine WBC 10-25 SEEN, Ur Squamous Epith Cells 0-5 SEEN, Urine Bacteria 3+, Urine Mucus 0 SEEN 09/26/22 19:05: Troponin I High Sens 692 H* 09/26/22 22:02: Lactic Acid 5.8 H* 09/27/22 00:40: Sodium 123 L, Potassium 5.1, Chloride 90 L, Carbon Dioxide 17.0 L, Anion Gap 16 H, BUN 42 H, Creatinine 1.15 H, Estim Creat Clear Calc 35.49, Est GFR (MDRD) Af Amer 60, Est GFR (MDRD) Non-Af 49 L, BUN/Creatinine Ratio 36.5 H, Glucose 104, Calcium 8.9 09/27/22 00:40: Troponin I High Sens 2132 H* 09/27/22 01:50: APTT Cancelled 09/27/22 02:10: WBC 12.0 H, RBC 4.89, Hgb 15.2 H, Hct 45.1, MCV 92.2, MCH 31.1, MCHC 33.7 D, RDW Std Deviation 47.3 H, RDW Coeff of Toby 14.2, Plt Count 207, MPV 10.7, Immature Gran % (Auto) 0.400, Neut % (Auto) 90.8 H, Lymph % (Auto) 3.5 L, Mcdowell % (Auto) 5.1, Eos % (Auto) 0.0, Baso % (Auto) 0.2, Absolute Neuts (auto) 10.9 H, Absolute Lymphs (auto) 0.42 L, Nucleated RBC % 0, Differential Comment SCANNED 09/27/22 03:23: Sodium 124 L, Potassium 5.1, Chloride 90 L, Carbon Dioxide 23.0, Anion Gap 11, BUN 44 H, Creatinine 1.13 H, Estim Creat Clear Calc 36.12, Est GFR (MDRD) Af Amer 61, Est GFR (MDRD) Non-Af 50 L, BUN/Creatinine Ratio 38.9 H, Glucose 145 H, Calcium 8.3 L, Total Bilirubin 1.30 H, AST 111 H, ALT 98 H, Alkaline Phosphatase 122 H, Total Protein 5.6 L, Albumin 2.7 L, Globulin 2.9, Albumin/Globulin Ratio 0.9 09/27/22 03:23: APTT > 200.0 H* Micro: Microbiology 09/26/22 19:10 Urine Catheter - Catheter Legionella Antigen - Final 09/26/22 19:10 Urine Catheter - Catheter Streptococcus pneumoniae Antigen (M - Final ABG Data ABG results: ABG 09/26/22 17:14 Specimen Type ART Sample Site L Radial pH 7.30 L Bicarbonate Actual 17.5 L Total CO2 19 Base Excess -9 L O2 Saturation 100 H O2 % 100 ABG pCO2 35.3 ABG pO2 345 H* Carroll Test Positive Respiration Rate 12 O2 Delivery Device Adult Vent Vent Mode AC Tidal Volume 450 POC PEEP 5 Crit Call To/Read Back Yes Blood Gas Notified Whom fatoumata Rhythm Strip Rhythm Strip: Paced Rate: 80 Cardiology Labs/Tests 09/26/22 16:30: WBC 6.8, RBC 5.11, Hgb 15.8 H, Hct 49.3 H, MCV 96.5, MCH 30.9, MCHC 32.0, Plt Count 211, MPV 10.9, Immature Gran % (Auto) 1.300 H, Neut % (Auto) 66.1, Lymph % (Auto) 21.3, Mcdowell % (Auto) 10.3 H, Eos % (Auto) 0.3, Baso % (Auto) 0.7, Absolute Neuts (auto) 4.5, Nucleated RBC % 0.7 09/26/22 16:30: Sodium 122 L, Potassium 5.5 H, Chloride 85 L, Carbon Dioxide 25.0, Anion Gap 12, BUN 39 H, Creatinine 1.31 H, Est GFR (MDRD) Af Amer 51 L, Est GFR (MDRD) Non-Af 42 L, BUN/Creatinine Ratio 29.8 H, Glucose 137 H, Calcium 8.7, Total Bilirubin 1.70 H 09/26/22 16:30: Triglycerides 121 09/26/22 16:30: PT 17.0 H, INR 1.4, APTT 41.8 H, D-Dimer Quant (PE/DVT) 2.99 H* 09/26/22 16:30: B-Natriuretic Peptide 4374.3 H 09/26/22 16:45: Lactic Acid Cancelled 09/26/22 17:14: pH 7.30 L, Bicarbonate Actual 17.5 L, Base Excess -9 L, O2 Saturation 100 H, ABG pCO2 35.3, ABG pO2 345 H*, Carroll Test Positive 09/26/22 17:33: Lactic Acid 5.6 H* 09/26/22 17:49: Urine Color Yellow, Urine Clarity Cloudy, Urine pH 6.5, Ur Specific Nucla 1.020, Urine Protein 500 H, Urine Glucose (UA) 50 H, Urine Ketones 5 H, Urine Occult Blood 250 H, Urine Nitrite Positive H, Urine Bilirubin Negative, Urine Urobilinogen Normal, Ur Leukocyte Esterase 25 H, Urine RBC > 100 SEEN, Urine WBC 10-25 SEEN 09/26/22 22:02: Lactic Acid 5.8 H* 09/27/22 00:40: Sodium 123 L, Potassium 5.1, Chloride 90 L, Carbon Dioxide 17.0 L, Anion Gap 16 H, BUN 42 H, Creatinine 1.15 H, Est GFR (MDRD) Af Amer 60, Est GFR (MDRD) Non-Af 49 L, BUN/Creatinine Ratio 36.5 H, Glucose 104, Calcium 8.9 09/27/22 01:50: APTT Cancelled 09/27/22 02:10: WBC 12.0 H, RBC 4.89, Hgb 15.2 H, Hct 45.1, MCV 92.2, MCH 31.1, MCHC 33.7 D, Plt Count 207, MPV 10.7, Immature Gran % (Auto) 0.400, Neut % (Auto) 90.8 H, Lymph % (Auto) 3.5 L, Mcdowell % (Auto) 5.1, Eos % (Auto) 0.0, Baso % (Auto) 0.2, Absolute Neuts (auto) 10.9 H, Nucleated RBC % 0 09/27/22 03:23: Sodium 124 L, Potassium 5.1, Chloride 90 L, Carbon Dioxide 23.0, Anion Gap 11, BUN 44 H, Creatinine 1.13 H, Est GFR (MDRD) Af Amer 61, Est GFR (MDRD) Non-Af 50 L, BUN/Creatinine Ratio 38.9 H, Glucose 145 H, Calcium 8.3 L, Total Bilirubin 1.30 H 09/27/22 03:23: APTT > 200.0 H* Rhythm: Electronic ventricular paced EKG: As noted above Transthoracic echocardiogram: 01-30-21 Interpretation Summary Severely dilated left ventricle. Severe segmental systolic dysfunction (see wall motion). The estimated ejection fraction is 15 %. The left atrium is mildly enlarged. Moderate diffuse mitral valve thickening. Mild papillary muscle dysfunction of the mitral valve. Moderate (2+) mitral valve insufficiency. Mild tricuspid valve insufficiency. Moderate focal aortic valve calcification. Small pericardial effusion. There are no echocardiographic indications of cardiac tamponade. Right ventricular systolic pressure estimated to be 31 mmHg. Diastolic function is indeterminate. ICD or pacer leads identified within the right atrium ICD or pacer leads identified within the right ventricle. Echocardiogram 01/13/2022: Interpretation Summary The estimated ejection fraction is 10-15 %. Severe LV systolic Dysfunction with global LV hypokinesia Moderate MR ICD leads noted on R.side Small pericardial effusion with no hemodynamic effect No significant changes from previous Echo January Cardiac catheterization: 01-31-21 CONCLUSIONS Elevated Left Ventricular End Diastolic Pressure (mild) Segmented LV systolic dysfunction- Severe LVEF: by LV gram 15 % [place] Multivessel CAD Left to Right Collateral Flow RECOMMENDATIONS Risk factor modification Medical therapy Surgery consult for coronary revascularization DESCRIPTION OF? PROCEDURE The patient arrived to the procedure lab. The risks and benefits of the procedure as well as a full description of our services here and current unavailability of surgical backup were fully explained to the patient and/or their significant other prior to the catheterization. The Timeout was completed, verifying the correct patient and procedure. The patient's procedural site was prepped and draped in the usual fashion. Local anesthetic was given subcutaneously to right radial region with Lidocaine 2%. Using a modified Seldinger technique, arterial access was obtained via the right radial artery, a 6Fr sheath was inserted.? Right Coronary Artery selective angiography was then performed in multiple views using a 5 Fr. 4.0 [place] catheter. Left Coronary Artery selective angiography was performed in multiple views using a 5 Fr. 4.0 [place] catheter. Left Ventriculography was performed in VICTORIA projection using a 5 Fr. Pigtail catheter. LV to AO pullback pressures were then recorded.The arterial sheath was pulled and a TR Band was applied for hemostasis 12cc air CORONARY ANGIOGRAPHY DOMINANCE:? Right Dominant LEFT HEART ASSESSMENT Left Ventricular Ejection Fraction: by LV Gram 15 % Anterior Hypokinesis - Severe. Inferior Basal Hypokinesis - Severe. Inferior Mid Akinesis. Apical Akinesis Elevated Left Ventricular End Diastolic Pressure LVEDP: 14 mmHg LEFT MAIN: Mild calcification, distal: 50 % Stenosis LEFT ANTERIOR DESCENDING ARTERY: PROX LAD: Moderate calcification, 99 % Stenosis MID LAD: Moderate calcification DISTAL LAD: 99 % Stenosis CIRCUMFLEX ARTERY: Mild luminal irregularities, diffuse: 25 % Stenosis OM 1: Proximal - 25 % Stenosis RAMUS: Mild luminal irregularities, 75 % Stenosis RIGHT CORONARY ARTERY: Mild calcification Mild luminal irregularities MID RCA: irregular: 85 % Stenosis DISTAL RCA: eccentric: 25 % Stenosis, 99 % Stenosis COLLATERAL FLOW: Collateral flow from Left to Right AORTIC ROOT: Angiographically normal Radiography Diagnostic Testing: Radiology Impression Brain CT 09/26/22 16:37 IMPRESSION: There are no acute findings. Chronic involutional changes of the brain. Electronically Signed: Sundeep Gomez MD at 17:51 EST , Chest X-Ray 09/26/22 17:40 IMPRESSION: Pulmonary findings appear improved. There is an endotracheal tube in place. The tip is 88 mm above the alayna. This is high. It should be pushed down by 56 mm Electronically Signed: Sundeep Gomez MD at 18:04 EST , Chest CTA 09/26/22 18:45 IMPRESSION: 1. No demonstrated pulmonary embolism or arterial dissection. 2. There is bilateral pneumonia. Bilateral pleural effusions. 3. Cardiomegaly. This has become significantly worse since the prior study. Electronically Signed: Sundeep Gomez MD at 21:24 EST ,
--- NOTE | 2022-09-27 08:15 | PCM.PN.HOSP ---
Subjective Subjective Intubated and sedated, not opening eyes spontaneously or responding purposefully to sternal rub. Frequent myoclonic jerking Objective Data Objective Data Vital Signs: Vital Signs Temp Pulse Resp BP Pulse Ox O2 Del Method FiO2 98.9 F 87 12 106/80 94 Mechanical Ventilator 21 09/27/22 07:00 09/27/22 07:31 09/27/22 07:31 09/27/22 07:00 09/27/22 07:31 09/27/22 07:00 09/27/22 07:31 Oxygen Delivery Method Mechanical Ventilator Weight: 60.917 kg Body Mass Index (BMI) 24.6 Intake & Output: Intake and Output for Last 24 Hours 09/25/22 09/26/22 09/27/22 23:59 23:59 23:59 Intake Total 1121.64 / 1128.84 858.10 / 858.10 Output Total 200 / 200 325 / 325 Balance 921.64 / 928.84 533.10 / 533.10 Lab / Micro Data Result Diagrams: 09/27/22 02:10 09/27/22 03:23 Labs: Laboratory Results - last 24 hr 09/26/22 16:30: WBC 6.8, RBC 5.11, Hgb 15.8 H, Hct 49.3 H, MCV 96.5, MCH 30.9, MCHC 32.0, RDW Std Deviation 51.5 H, RDW Coeff of Toby 14.4, Plt Count 211, MPV 10.9, Immature Gran % (Auto) 1.300 H, Neut % (Auto) 66.1, Lymph % (Auto) 21.3, [place] % (Auto) 10.3 H, Eos % (Auto) 0.3, Baso % (Auto) 0.7, Absolute Neuts (auto) 4.5, Absolute Lymphs (auto) 1.45, Nucleated RBC % 0.7 09/26/22 16:30: Sodium 122 L, Potassium 5.5 H, Chloride 85 L, Carbon Dioxide 25.0, Anion Gap 12, BUN 39 H, Creatinine 1.31 H, Estim Creat Clear Calc 34.01, Est GFR (MDRD) Af Amer 51 L, Est GFR (MDRD) Non-Af 42 L, BUN/Creatinine Ratio 29.8 H, Glucose 137 H, Calcium 8.7, Total Bilirubin 1.70 H, AST 86 H, ALT 92 H, Alkaline Phosphatase 151 H, Troponin I High Sens 153 H*, Total Protein 7.0, Albumin 3.5, Globulin 3.5, Albumin/Globulin Ratio 1.0 09/26/22 16:30: Total Creatine Kinase 122, Triglycerides 121 09/26/22 16:30: PT 17.0 H, INR 1.4, APTT 41.8 H, D-Dimer Quant (PE/DVT) 2.99 H* 09/26/22 16:30: B-Natriuretic Peptide 4374.3 H 09/26/22 16:45: Lactic Acid Cancelled 09/26/22 17:33: Lactic Acid 5.6 H* 09/26/22 17:49: Urine Color Yellow, Urine Clarity Cloudy, Urine pH 6.5, Ur Specific [place] 1.020, Urine Protein 500 H, Urine Glucose (UA) 50 H, Urine Ketones 5 H, Urine Occult Blood 250 H, Urine Nitrite Positive H, Urine Bilirubin Negative, Urine Urobilinogen Normal, Ur Leukocyte Esterase 25 H, Urine RBC > 100 SEEN, Urine WBC 10-25 SEEN, Ur Squamous Epith Cells 0-5 SEEN, Urine Bacteria 3+, Urine Mucus 0 SEEN 09/26/22 19:05: Troponin I High Sens 692 H* 09/26/22 22:02: Lactic Acid 5.8 H* 09/27/22 00:40: Sodium 123 L, Potassium 5.1, Chloride 90 L, Carbon Dioxide 17.0 L, Anion Gap 16 H, BUN 42 H, Creatinine 1.15 H, Estim Creat Clear Calc 35.49, Est GFR (MDRD) Af Amer 60, Est GFR (MDRD) Non-Af 49 L, BUN/Creatinine Ratio 36.5 H, Glucose 104, Calcium 8.9 09/27/22 00:40: Troponin I High Sens 2132 H* 09/27/22 01:50: APTT Cancelled 09/27/22 02:10: WBC 12.0 H, RBC 4.89, Hgb 15.2 H, Hct 45.1, MCV 92.2, MCH 31.1, MCHC 33.7 D, RDW Std Deviation 47.3 H, RDW Coeff of Toby 14.2, Plt Count 207, MPV 10.7, Immature Gran % (Auto) 0.400, Neut % (Auto) 90.8 H, Lymph % (Auto) 3.5 L, [place] % (Auto) 5.1, Eos % (Auto) 0.0, Baso % (Auto) 0.2, Absolute Neuts (auto) 10.9 H, Absolute Lymphs (auto) 0.42 L, Nucleated RBC % 0, Differential Comment SCANNED 09/27/22 03:23: Sodium 124 L, Potassium 5.1, Chloride 90 L, Carbon Dioxide 23.0, Anion Gap 11, BUN 44 H, Creatinine 1.13 H, Estim Creat Clear Calc 36.12, Est GFR (MDRD) Af Amer 61, Est GFR (MDRD) Non-Af 50 L, BUN/Creatinine Ratio 38.9 H, Glucose 145 H, Calcium 8.3 L, Total Bilirubin 1.30 H, AST 111 H, ALT 98 H, Alkaline Phosphatase 122 H, Total Protein 5.6 L, Albumin 2.7 L, Globulin 2.9, Albumin/Globulin Ratio 0.9 09/27/22 03:23: APTT > 200.0 H* Micro: Microbiology 09/26/22 19:10 Urine Catheter - Catheter Legionella Antigen - Final 09/26/22 19:10 Urine Catheter - Catheter Streptococcus pneumoniae Antigen (M - Final ABG Data ABG results: ABG 09/26/22 17:14 Specimen Type ART Sample Site L Radial pH 7.30 L Bicarbonate Actual 17.5 L Total CO2 19 Base Excess -9 L O2 Saturation 100 H O2 % 100 ABG pCO2 35.3 ABG pO2 345 H* Carroll Test Positive Respiration Rate 12 O2 Delivery Device Adult Vent Vent Mode AC Tidal Volume 450 POC PEEP 5 Crit Call To/Read Back Yes Blood Gas Notified Whom schwiger Radiography Diagnostic Testing: Radiology Impression Brain CT 09/26/22 16:37 IMPRESSION: There are no acute findings. Chronic involutional changes of the brain. Electronically Signed: Sundeep Gomez MD at 17:51 EST , Chest X-Ray 09/26/22 17:40 IMPRESSION: Pulmonary findings appear improved. There is an endotracheal tube in place. The tip is 88 mm above the alayna. This is high. It should be pushed down by 56 mm Electronically Signed: Sundeep Gomez MD at 18:04 EST , Chest CTA 09/26/22 18:45 IMPRESSION: 1. No demonstrated pulmonary embolism or arterial dissection. 2. There is bilateral pneumonia. Bilateral pleural effusions. 3. Cardiomegaly. This has become significantly worse since the prior study. Electronically Signed: Sundeep Gomez MD at 21:24 EST , Rhythm Strip Rhythm Strip: Paced Rate: 80 Physical Exam Const Constitutional Narrative: Intubated and sedated, not responding purposefully HEENT normocephalic Eyes Eyes Narrative: Pupils equal, sluggish reactivity, no spontaneous opening of eyes Neck supple Resp Resp Narrative: Mechanically ventilated Cardio regular rate and regular rhythm GI soft to palpation and non-distended Extremity Extremity Narrative: No edema appreciated, feet cold and toes with dusky appearance Neuro Neuro Narrative: Frequent myoclonic jerking Psych Psych Narrative: Unable to cooperate secondary to intubation and sedation Assessment & Plan Assessment/Plan (1) Cardiac arrest: PLAN: Plan 1. Acute out of hospital cardiac arrest, likely secondary to arrhythmia in the setting of HFrEF NYHA class IV Patient has underlining history of severe ischemic cardiomyopathy, EF of 10 to 15%, not amendable to any CABG or multivessel PCI or LVAD. Status post intubation, on mechanical ventilator Initial EKG shows paced rhythm, left bundle branch block. 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 Was not purposeful in her movements, does have cough and gag inconsistently, pupils equal and sluggish. Has frequent myoclonic jerking, will have EEG later today. Repeat echo ordered. Troponin had up trended to 2132. BNP on arrival 4374. Presently intubated and is on propofol and fentanyl for sedation. Keppra held pending EEG. Has frequent myoclonic jerking, have not observed overt seizure activity. Low threshold to start this. Has Ativan as needed for seizures 2. Acute critical limb ischemia, feet more than hands, probably secondary to shunting of blood during cardiopulmonary arrest versus thromboembolic event from probable left ventricular thrombus in the setting of severe LV dysfunction from ischemic cardiomyopathy D-dimer elevated at 2.99 Will continue on heparin drip, arterial Doppler pending, family to come and discuss goals of care 3. Bilateral infiltrates seen on chest CTA, probable pneumonia Continue IV ceftriaxone and azithromycin Sputum cultures are pending Check urine Legionella and streptococcal antigen 09/27: Legionella and streptococcal urine antigens negative, other cultures pending 4. EBONY, likely secondary to #1 Admitting creatinine is 1.31, from baseline of 0.87 Will trend 09/27/2022: Improving, monitor urine output 5. Hyponatremia/hyperkalemia secondary to #4 We will repeat blood work 09/27: Hyperkalemia resolved, hyponatremia roughly unchanged and is been present since July 6. Elevated LFTs likely secondary to 1, will trend 7. Hypertension, now relatively hypotensive, will hold off on Coreg, spironolactone, hydralazine 8. Probable acute UTI, analysis is suggestive, continue IV ceftriaxone 09/27: Cultures pending, continue empiric antibiotics at this time 9. DVT PPx- Heparin drip 10. GI PPx-Protonix drip Charges/Coding Visit Charges Inpatient E&M: 99533 Subs Hosp L2
[2022-09-27] MEDS: Propofol 10MG/Ml 1,000 MG/100 ML Bottle 4.7 MG CONT INF (08:16)
[2022-09-27] MEDS: Aspirin 81 MG TAB.CHEW GT (09:46)
[2022-09-27] MEDS: Chlorhexidine 15 ML PO ×2 (09:47→21:28)
[2022-09-27] MEDS: Furosemide 40 MG/4 ML Vial IV ×2 (09:47→17:20)
[2022-09-27] MEDS: CHLORHEXIDINE GLUC 2% CLOTH 1 EACH TOWELETTE TOPICAL (09:47)
--- NOTE | 2022-09-27 09:50 | CASEMGMT ---
Addendum entered by Ashley Cheek 09/27/22 12:02: RICK notified Dr Hodgson that patient's family will be in [place] this evening. Ashley CARTER Original Note: RICK called patient's son, Ralf. RICK asked if he was aware what was going on with his mother and he said he was informed last night. Ralf said he is about a half hour from leaving, his is flying in and his 2 uncles are already on their way. Ralf said they will all be in [place] sometime this evening. RICK thanked him and told him to drive safely. RICK notified FRANK Smith and RN GRACIELA Diamond. RICK will notify Dr Hodgson when RICK sees him as he was not in his office. Ashley CARTER
[2022-09-27 12:12] LABS: Partial Thromboplast Time 137.3 Seconds (24.1-36.2)
--- NOTE | 2022-09-27 13:07 | TELEMED_ITS ---
[facility] has confirmed receipt of a request for visit. This document confirms receipt of the order initiating the consult. To find the results of the consultation, please view the patient's reports for the scanned Telemed Consult.
--- NOTE | 2022-09-27 14:51 | EX.PCM.CON.S ---
Assessment & Plan Assessment/Plan (1) Extremity ischemia: PLAN: -global hypoperfusion resultant from baseline poor cardiac function and acute cardiac event -has doppler signals in feet and palpable radial pulses; unknown baseline but suspect some pre-existing disease -digits on right LE appear to be more progressed toward non-reversible ischemic injury but remains early to tell -given baseline cardiac status and current clinical situation she is unlikely to benefit from any vascular interventions/invasive imaging is reasonable to get PVRs and cont heparin -passive warming of distal extremities may be of benefit -will follow HPI Consult Data Date of Consult: 09/27/22 HPI Narrative HPI Narrative: TIFFANY CARDONA, is a 71 F who presents after sudden cardiac arrest. Intubated in ED. Has extensive coronary history with known multivessel disease not amenable to PCI or CABG, reduced EF 10-15%, AICD. S/P acute event was noted to have cool, cyanotic bilateral upper and lower extremity digits. She currently remains intubated, no pressors, sedated. [facility] Medical History Anxiety Atherosclerotic heart disease of [place] coronary artery without angina pectoris CAD (coronary artery disease) CAD (coronary artery disease) Cardiomyopathy, ischemic Cardiomyopathy, ischemic CHF (congestive heart failure), NYHA class IV Coronary artery disease COVID-19 virus infection Depression Essential hypertension Former smoker HTN (hypertension) Hypertension ICD (implantable cardioverter-defibrillator) in place Mitral valve disease Non-ST elevation (NSTEMI) myocardial infarction Non-ST elevation (NSTEMI) myocardial infarction Pneumonia due to COVID-19 virus Presence of biventricular automatic implantable cardioverter defibrillator Home Medications hydralazine 10 mg tablet 10 mg PO TID bp 02/28/21 [History Last Taken 07/20/22] acetaminophen 325 mg tablet 325 mg PO ONCE PRN Pain 04/21/21 [History Last Taken Unknown] isosorbide dinitrate 5 mg tablet 5 mg PO TID heart 04/21/21 [History Last Taken 07/20/22] aspirin 81 mg tablet,delayed release 81 mg PO DAILY heart health 06/12/21 [History Last Taken Unknown] carvedilol 3.125 mg tablet 3.125 mg PO BID blood pressure 06/12/21 [History Last Taken 07/20/22] guaifenesin 600 mg tablet, extended release 12 hr (Mucinex) 600 mg PO PRN PRN Sinus Symptoms 10/27/21 [History Last Taken Unknown] multivitamin 1 tab PO DAILY supplement 11/14/21 [History Last Taken Unknown] sertraline 50 mg tablet 25 mg PO QHS mental health 01/12/22 [History Last Taken Unknown] ondansetron HCl 4 mg tablet 4 mg PO Q6H PRN Nausea 07/20/22 [History Last Taken 07/20/22] magnesium 250 mg tablet 250 mg PO DAILY supplement 07/27/22 [History Last Taken Unknown] bumetanide 0.5 mg tablet 0.5 mg PO DAILY #30 tabs 08/17/22 [Rx Last Taken Unknown] spironolactone 25 mg tablet 12.5 mg PO DAILY #30 tabs 08/17/22 [Rx Last Taken Unknown] zolpidem 5 mg tablet 2.5 mg PO QHS #30 tabs 08/17/22 [Rx Last Taken Unknown] melatonin 5 mg capsule 5 mg PO QHS sleep 09/05/22 [History Last Taken Unknown] metolazone 2.5 mg tablet 5 mg PO .COMPLEX PRN Weight gain > 2lb 30 days #30 tabs 09/19/22 [Rx Last Taken Unknown] potassium chloride 20 mEq tablet,extended release(part/cryst) (Klor-Con M) 20 meq PO DAILY #30 tabs 09/19/22 [Rx Last Taken Unknown] Allergy/AdvReac Type Severity Reaction Status Date / Time Sulfa (Sulfonamide Allergy Rash Verified 09/05/22 15:35 Antibiotics) amiodarone AdvReac Intermediate stomach Verified 09/05/22 15:35 ache amoxicillin AdvReac Other Verified 09/05/22 15:35 Founcdx-IDX-VwD Reductase AdvReac palpitation Verified 09/05/22 15:35 Inhibitor s [Lmzdpwj-Zcf-Jtb Reductase Inhibitor] Family History Father Aneurysm Grandmother Congestive heart failure Brother Diabetes Grandfather Myocardial infarction, Onset Age: 60 Grandfather Myocardial infarction, Onset Age: 60 Mother CVA (cerebral vascular accident) Cancer Hx Lung CA w/ tobacco use history. Other Heart disease Surgical History History of left heart catheterization (LHC) (~01/31/21) Implantable cardioverter-defibrillator (ICD) generator end of life (~07/20/22) S/P implantation of automatic cardioverter/defibrillator (AICD) Social History household members: none Smoking Status: Former smoker how long ago did patient quit smoking: Quit 01/2021 with prior 1/2 ppd since 20 y/o. alcohol intake: never substance use type: does not use caffeine: Yes Type: coffee ROS ROS Narrative Unable to obtain due to current medical status, intubated and sedated. Review of Systems ROS Unobtainable: due to endotracheal tube Physical Exam Const Negative for alert, oriented x3 or healthy appearing Constitutional Narrative: Intubated, sedated, intermittent global tremors/spasms General Appearance: ill appearing, intubated and patient mechanically ventilated; Negative for grossly edematous Exam Limitations: altered mental status and physical limitations HEENT Head and Scalp: normocephalic and atraumatic Neck no lymphadenopathy and thyroid normal General: trachea midline; Negative for lymphadenopathy Thyroid: thyroid normal Lymph Lymphatic: Negative for no lymphadenopathy noted Resp Effort and Inspection: mechanically ventilated Cardio regular rate and regular rhythm Peripheral Pulses: brachial pulses present, radial pulses present, femoral pulses present, posterior tibial pulses present bilateral dopplerable (monophasic) and dorsalis pedis pulses present bilateral dopplerable (monophasic); Negative for popliteal pulses present GI non-tender and non-distended Extremity Negative for normal capillary refill General Extremity: cyanosis and pulses abnormal Skin no rashes or lesions noted, no wounds and No no mottling Neuro Sensorium / Orientation: sedated on vent Psych Appearance: intubated Lab / Micro Data Result Diagrams: 09/27/22 02:10 09/27/22 03:23 Labs: Laboratory Results - last 24 hr 09/26/22 16:30: WBC 6.8, RBC 5.11, Hgb 15.8 H, Hct 49.3 H, MCV 96.5, MCH 30.9, MCHC 32.0, RDW Std Deviation 51.5 H, RDW Coeff of Toby 14.4, Plt Count 211, MPV 10.9, Immature Gran % (Auto) 1.300 H, Neut % (Auto) 66.1, Lymph % (Auto) 21.3, [place] % (Auto) 10.3 H, Eos % (Auto) 0.3, Baso % (Auto) 0.7, Absolute Neuts (auto) 4.5, Absolute Lymphs (auto) 1.45, Nucleated RBC % 0.7 09/26/22 16:30: Sodium 122 L, Potassium 5.5 H, Chloride 85 L, Carbon Dioxide 25.0, Anion Gap 12, BUN 39 H, Creatinine 1.31 H, Estim Creat Clear Calc 34.01, Est GFR (MDRD) Af Amer 51 L, Est GFR (MDRD) Non-Af 42 L, BUN/Creatinine Ratio 29.8 H, Glucose 137 H, Calcium 8.7, Total Bilirubin 1.70 H, AST 86 H, ALT 92 H, Alkaline Phosphatase 151 H, Troponin I High Sens 153 H*, Total Protein 7.0, Albumin 3.5, Globulin 3.5, Albumin/Globulin Ratio 1.0 09/26/22 16:30: Total Creatine Kinase 122, Triglycerides 121 09/26/22 16:30: PT 17.0 H, INR 1.4, APTT 41.8 H, D-Dimer Quant (PE/DVT) 2.99 H* 09/26/22 16:30: B-Natriuretic Peptide 4374.3 H 09/26/22 16:45: Lactic Acid Cancelled 09/26/22 17:33: Lactic Acid 5.6 H* 09/26/22 17:49: Urine Color Yellow, Urine Clarity Cloudy, Urine pH 6.5, Ur Specific [place] 1.020, Urine Protein 500 H, Urine Glucose (UA) 50 H, Urine Ketones 5 H, Urine Occult Blood 250 H, Urine Nitrite Positive H, Urine Bilirubin Negative, Urine Urobilinogen Normal, Ur Leukocyte Esterase 25 H, Urine RBC > 100 SEEN, Urine WBC 10-25 SEEN, Ur Squamous Epith Cells 0-5 SEEN, Urine Bacteria 3+, Urine Mucus 0 SEEN 09/26/22 19:05: Troponin I High Sens 692 H* 09/26/22 22:02: Lactic Acid 5.8 H* 09/27/22 00:40: Sodium 123 L, Potassium 5.1, Chloride 90 L, Carbon Dioxide 17.0 L, Anion Gap 16 H, BUN 42 H, Creatinine 1.15 H, Estim Creat Clear Calc 35.49, Est GFR (MDRD) Af Amer 60, Est GFR (MDRD) Non-Af 49 L, BUN/Creatinine Ratio 36.5 H, Glucose 104, Calcium 8.9 09/27/22 00:40: Troponin I High Sens 2132 H* 09/27/22 01:50: APTT Cancelled 09/27/22 02:10: WBC 12.0 H, RBC 4.89, Hgb 15.2 H, Hct 45.1, MCV 92.2, MCH 31.1, MCHC 33.7 D, RDW Std Deviation 47.3 H, RDW Coeff of Toby 14.2, Plt Count 207, MPV 10.7, Immature Gran % (Auto) 0.400, Neut % (Auto) 90.8 H, Lymph % (Auto) 3.5 L, [place] % (Auto) 5.1, Eos % (Auto) 0.0, Baso % (Auto) 0.2, Absolute Neuts (auto) 10.9 H, Absolute Lymphs (auto) 0.42 L, Nucleated RBC % 0, Differential Comment SCANNED 09/27/22 03:23: Sodium 124 L, Potassium 5.1, Chloride 90 L, Carbon Dioxide 23.0, Anion Gap 11, BUN 44 H, Creatinine 1.13 H, Estim Creat Clear Calc 36.12, Est GFR (MDRD) Af Amer 61, Est GFR (MDRD) Non-Af 50 L, BUN/Creatinine Ratio 38.9 H, Glucose 145 H, Calcium 8.3 L, Total Bilirubin 1.30 H, AST 111 H, ALT 98 H, Alkaline Phosphatase 122 H, Total Protein 5.6 L, Albumin 2.7 L, Globulin 2.9, Albumin/Globulin Ratio 0.9 09/27/22 03:23: APTT > 200.0 H* 09/27/22 11:40: APTT 137.3 H* Micro: Microbiology 09/26/22 17:30 Sputum, Induced/Lukens Gram Stain - Final 09/26/22 17:30 Sputum, Induced/Lukens Respiratory Culture - Preliminary Appears to be normal respiratory jessica. Further studies to follow. 09/26/22 19:10 Urine Catheter - Barraza Urine Culture - Preliminary Culture exhibits no growth. 09/26/22 19:10 Urine Catheter - Catheter Legionella Antigen - Final 09/26/22 19:10 Urine Catheter - Catheter Streptococcus pneumoniae Antigen (M - Final ABG Data ABG results: ABG 09/26/22 17:14 Specimen Type ART Sample Site L Radial pH 7.30 L Bicarbonate Actual 17.5 L Total CO2 19 Base Excess -9 L O2 Saturation 100 H O2 % 100 ABG pCO2 35.3 ABG pO2 345 H* Carroll Test Positive Respiration Rate 12 O2 Delivery Device Adult Vent Vent Mode AC Tidal Volume 450 POC PEEP 5 Crit Call To/Read Back Yes Blood Gas Notified Whom schwiger Rhythm Strip Rhythm Strip: Paced Rate: [address] 09/26/22 16:37 IMPRESSION: There are no acute findings. Chronic involutional changes of the brain. Electronically Signed: Sundeep Gomez MD at 17:51 EST , Chest X-Ray 09/26/22 17:40 IMPRESSION: Pulmonary findings appear improved. There is an endotracheal tube in place. The tip is 88 mm above the alayna. This is high. It should be pushed down by 56 mm Electronically Signed: Sundeep Gomez MD at 18:04 EST , Chest CTA 09/26/22 18:45 IMPRESSION: 1. No demonstrated pulmonary embolism or arterial dissection. 2. There is bilateral pneumonia. Bilateral pleural effusions. 3. Cardiomegaly. This has become significantly worse since the prior study. Electronically Signed: Sundeep Gomez MD at 21:24 EST , Echocardiogram 09/26/22 22:16 Interpretation Summary Severely dilated left ventricle. Severe segmental systolic dysfunction (see wall motion). The estimated ejection fraction is 10 %. The left atrium is moderately enlarged. The right atrium is mildly enlarged. There is mild mitral annular calcification. Mild diffuse mitral valve thickening. Moderately severe (3+) eccentric mitral valve insufficiency. Moderate (2+) tricuspid valve insufficiency. Mild focal aortic valve calcification. Trivial eccentric pulmonic valve insufficiency. Echo lucency compatible with a pleural effusion. Right ventricular systolic pressure estimated to be 44 mmHg. Stage 2 diastolic dysfunction. ICD or pacer leads identified within the right atrium ICD or pacer leads identified within the right ventricle. Comment: Based upon the 2D echocardiographic images obtained: No obvious intracardiac mass lesion/thrombus identified. Ordering Physician: Jeimy Devi Referring Physician: DEVENDRA PCP Performed By: Christy Guerra RCS Charges/Coding Visit Charges Inpatient E&M: 61932 Init Hosp L2
[2022-09-27] MEDS: Propofol 10MG/Ml 1,000 MG/100 ML Bottle 5.5 MG CONT INF (20:45)
[2022-09-27 20:53] LABS: Partial Thromboplast Time 39.5 Seconds (24.1-36.2)
[2022-09-27] MEDS: Heparin Injection (Vial) 5,000 UNIT/ML VIAL IV (21:28)
[2022-09-27] MEDS: Acetaminophen 650 MG/20 ML UDC GT (21:35)
[2022-09-27] MEDS: Ceftriaxone 1 GM/50 ML BAG IV (22:14)
[2022-09-28] VITALS (18 sets, daily range): BP systolic 84–109; BP diastolic 63–87; PULSE 66–99; RESP 12–26; TEMP 35.8–36.9; O2SAT 93–100
[2022-09-28] MEDS: CHLORHEXIDINE GLUC 2% CLOTH 1 EACH TOWELETTE TOPICAL (03:29)
[2022-09-28] MEDS: 0.9% Saline Lock 10 ML Syringe IV ×3 (03:29→14:19)
[2022-09-28] MEDS: HEPARIN/D5w 25,000 UNITS 25,000 UNITS/250 ML IV.SOLN. 17 UNITS CONT INF (03:30)
[2022-09-28 03:36] LABS: Absolute Lymphocyte Count 0.81 X10^3/uL (0.83-4.51); Absolute Neutrophil Count 9.3 X10^3/uL (2.0-7.7); Basophil# 0.01 X10^3/uL; Basophil% 0.1 % (0-1); Hematocrit 39.4 % (37-47); Hemoglobin 13.9 g/dL (12.0-15.0); Lymphocyte # 0.81 X10^3/ul (0.83-4.51); Lymphocyte % 7.3 % (19-41); Mean Corp Hgb Conc 35.3 g/dL (32-36); Mean Corpuscular Hgb 31.3 pg (27.0-32.0); Mean Corpuscular Volume 88.7 fL (81-99); Mean Platelet Vol. 10.7 fl (6.2-12.0); Monocyte# 0.81 X10^3/uL; Monocyte% 7.3 % (0-10); NRBC Flagged by Analyzer 0 % (0-5); Neutrophil # 9.34 X10^3/uL (2.7-7.7); Neutrophil % 84.8 % (47-70); Platelet Count 215 K/mm3 (150-450); RBC Distribution Width CV 14.4 % (11.6-14.6); RBC Distribution Width SD 45.1 fl (35.1-43.9); Red Blood Count 4.44 M/mm3 (4.2-5.4)
[2022-09-28 03:49] LABS: Partial Thromboplast Time 97.8 Seconds (24.1-36.2)
[2022-09-28 04:15] LABS: ALB/GLOB Ratio 0.9 RATIO (0.9-2.4); AST(SGOT) 82 U/L (15-37); Alanine Aminotransfer ALT/SGPT 89 U/L (13-56); Albumin, Serum 2.3 g/dL (3.2-5.0); Alkaline Phosphatase 93 U/L (45-117); Anion Gap 11 (5-15); BUN 37 mg/dL (7-18); BUN/Creat Ratio 31.4 RATIO (10-20); Calcium,Total 7.8 mg/dL (8.5-10.1); Chloride 91 mmol/L (98-107); Creatinine, Serum 1.18 mg/dL (0.55-1.02); EST Glomerular Filtration Rate 48 mL/min (>60); Est Glom Filt Rate - Afr Amer 58 mL/min (>60); Estimated Creatinine Clearance 34.59 ml/min; Globulin 2.6 g/dL (2.2-4.2); Glucose 117 mg/dL (74-106); Potassium 3.9 mmol/L (3.5-5.1); Protein, Total 4.9 g/dL (6.4-8.2); Sodium Level 128 mmol/L (136-145)
--- NOTE | 2022-09-28 06:55 | PCM.PN.INT ---
Assessment & Plan Assessment/Plan (1) Cardiac arrest: (2) Acute kidney injury: (3) CHF (congestive heart failure), NYHA class IV: (4) Anoxic brain injury: PLAN: Plan RECOMMENDATIONS: 1. Family meeting today about goals of therapy 2. Okay to monitor off Keppra 3. Potentially discontinue sedation if myoclonic activity resolves 4. Follow neuro exam 5. No plans for extubation given mental status 6. Await family arrival to verify CODE and organ donation STATUS IMPRESSIONS: 1. Cardiac arrest secondary to V. fib Patient does have an extensive cardiac history in the past status post pacemaker/defibrillator. Patient's last known EF was 10 to 15%. Interrogation of the pacemaker is suggestive of V. fib as an etiology. It does appear patient may have had a protracted decreased perfusion for up to 20 minutes prior to ROSC. Echocardiogram was reviewed. 2. Possible UTI versus pneumonia UA was suggestive of possible UTI. Patient also has some consolidation on CT of the chest. Unclear if this is related to compression artifact associated with pleural effusions. Patient also received CPR, so pulmonary contusion would be a concern. Patient is currently on empiric antibiotics. Anticipate treating for 5 days. 3. Acute kidney injury Patient's renal function appears to be improving after the acute event. Admitting creatinine was elevated at 1.3. Patient's baseline appears to be around 0.9. Patient's urine output is doing okay. Patient did have some hyponatremia on presentation, but this appears to be improving also. 4. Probable anoxic brain injury Patient does have some intermittent cranial nerve reflexes, but currently is obtunded with very little spontaneous movement. EEG has not shown status epilepticus. [facility] is aware of the patient's status. Family is reportedly in state and hopefully will be today. 5. Possible limb ischemia/hypertension/peripheral vascular disease/advanced age Complicates care, management, recovery and prognosis. Antihypertensives have been held for now. Patient is on a heparin drip to help with peripheral perfusion. Patient with significant metabolic acidosis on presentation. Family is reportedly incoming to discuss goals of therapy. Addendum 1215: Family meeting with the patient's son, [id number] and 2 brothers about the goals of therapy. Patient's condition, prognosis and test results were reviewed in detail. Family was very insightful as to the patient's wishes. Patient has not had a good quality of life for several years. Did discuss the possibility of awaiting progression to brain for organ donation. Patient's son stated I think I would be open to it but she has readily stated that she would not agree to organ donation. [facility] bank will be contacted. As of now, patient will be transitioned to DNR comfort care arrest pending arrival of additional interested parties. Anticipate positive extubation in the next 24 hours. TIME: 70 minutes of critical care time spent addressing patient's cardiac arrest, possible UTI, acute kidney injury, anoxic brain injury, review of all data and collaboration with care team Subjective Subjective Patient did okay from a hemodynamic standpoint overnight. Patient continues to have intermittent sluggish pupils, myoclonus and intermittent cough reflex. Patient has been on propofol and fentanyl to help with myoclonus. EEG did not show status epilepticus. Family reportedly did arrive overnight, but has not seen the patient. Did switch patient to spontaneous mode on the ventilator and was noted to be apneic, but was on propofol and fentanyl at that time. Objective Data Objective Data Vital Signs: Vital Signs Temp Pulse Resp BP Pulse Ox O2 Del Method FiO2 35.8 C L 68 16 98/73 94 Mechanical Ventilator 25 09/28/22 06:00 09/28/22 06:00 09/28/22 06:00 09/28/22 06:00 09/28/22 06:00 09/28/22 06:00 09/28/22 06:00 Oxygen Delivery Method Mechanical Ventilator Weight: 61.689 kg Body Mass Index (BMI) 24.6 Intake & Output: Intake and Output for Last 24 Hours 09/26/22 09/27/22 09/28/22 23:59 23:59 23:59 Intake Total 1121.64 / 1128.84 2267.08 / 2269.58 402.63 / 402.63 Output Total 200 / 200 2200 / 2240 455 / 455 Balance 921.64 / 928.84 67.08 / 29.58 -52.37 / -52.37 Lab / Micro Data Attestation: I reviewed the patient's lab results. Result Diagrams: 09/28/22 03:24 09/28/22 03:24 Labs: Laboratory Results - last 24 hr 09/27/22 11:40: APTT 137.3 H* 09/27/22 20:16: APTT 39.5 H 09/28/22 03:24: WBC 11.0, RBC 4.44, Hgb 13.9, Hct 39.4, MCV 88.7, MCH 31.3, MCHC 35.3, RDW Std Deviation 45.1 H, RDW Coeff of Toby 14.4, Plt Count 215, MPV 10.7, Immature Gran % (Auto) 0.500, Neut % (Auto) 84.8 H, Lymph % (Auto) 7.3 L, Ingham % (Auto) 7.3, Eos % (Auto) 0.0, Baso % (Auto) 0.1, Absolute Neuts (auto) 9.3 H, Absolute Lymphs (auto) 0.81 L, Nucleated RBC % 0 09/28/22 03:24: Sodium 128 L, Potassium 3.9, Chloride 91 L, Carbon Dioxide 26.0, Anion Gap 11, BUN 37 H, Creatinine 1.18 H, Estim Creat Clear Calc 34.59, Est GFR (MDRD) Af Amer 58 L, Est GFR (MDRD) Non-Af 48 L, BUN/Creatinine Ratio 31.4 H, Glucose 117 H, Calcium 7.8 L, Total Bilirubin 1.10 H, AST 82 H, ALT 89 H, Alkaline Phosphatase 93, Total Protein 4.9 L, Albumin 2.3 L, Globulin 2.6, Albumin/Globulin Ratio 0.9 09/28/22 03:24: APTT 97.8 H* Micro: Microbiology 09/26/22 17:30 Sputum, Induced/Lukens Gram Stain - Final 09/26/22 17:30 Sputum, Induced/Lukens Respiratory Culture - Preliminary Appears to be normal respiratory jessica. Further studies to follow. 09/26/22 19:10 Urine Catheter - Barraza Urine Culture - Preliminary Culture exhibits no growth. 09/26/22 19:10 Urine Catheter - Catheter Legionella Antigen - Final 09/26/22 19:10 Urine Catheter - Catheter Streptococcus pneumoniae Antigen (M - Final Radiography Diagnostic Testing: Radiology Impression Ankle Brachial Index 09/26/22 18:24 Interpretation Summary Right JESSICA 1.06, normal. Doppler/PVR waveforms of the right ankle normal at rest. Digit waveforms diminished, pedal/digit disease vs spasm. Left JESSICA 0.93, mild arterial insufficiency. Doppler/PVR waveforms of the left ankle mildly diminished at rest. Ordering Physician: Jeimy Devi Referring Physician: JEIMY DEVI MD Performed By: Josseline Varela RDCS/RVT Echocardiogram 09/26/22 22:16 Interpretation Summary Severely dilated left ventricle. Severe segmental systolic dysfunction (see wall motion). The estimated ejection fraction is 10 %. The left atrium is moderately enlarged. The right atrium is mildly enlarged. There is mild mitral annular calcification. Mild diffuse mitral valve thickening. Moderately severe (3+) eccentric mitral valve insufficiency. Moderate (2+) tricuspid valve insufficiency. Mild focal aortic valve calcification. Trivial eccentric pulmonic valve insufficiency. Echo lucency compatible with a pleural effusion. Right ventricular systolic pressure estimated to be 44 mmHg. Stage 2 diastolic dysfunction. ICD or pacer leads identified within the right atrium ICD or pacer leads identified within the right ventricle. Comment: Based upon the 2D echocardiographic images obtained: No obvious intracardiac mass lesion/thrombus identified. Ordering Physician: Jeimy Devi Referring Physician: DEVENDRA PCP Performed By: Christy Guerra RCS Rhythm Strip Rhythm Strip: Paced Rate: 67 Physical Exam Const no apparent distress Constitutional Narrative: Breathing with the ventilator. Myoclonic response to right lower extremity stimulus. Mild cough reflex General Appearance: patient mechanically ventilated Orientation / Consciousness: obtunded HEENT normocephalic and head/scalp atraumatic Eyes conjunctivae normal Eyes Narrative: Pupils at 3 mm and very sluggish Neck full ROM and no lymphadenopathy Chest inspection of chest normal Resp normal respiratory effort and no use of accessory muscles Auscultation: Negative for rales, rhonchi or wheezes Cardio regular rate, regular rhythm, S1 normal heart sound, S2 normal heart sound, no murmurs, no rub and no gallops Cardio Narrative: Pacemaker noted. Paced on telemetry. GI normal to inspection, nondistended, normoactive bowel sounds Extremity Extremity Narrative: Saul lower extremities. Ischemic hands and toes Skin General Skin Exam: mottling and venous stasis Neuro Neuro Narrative: No gag at this time. Pupils are sluggish. Psych Mood & Affect: flat affect Charges/Coding Procedures Hospitalists Procedures: 97597 Critial Care 1st Hr Multi Select Codes Hospitalists' Procedures Procedures: 36436 Critial Care Addl 30 Min
--- NOTE | 2022-09-28 07:45 | PN.CARD_ITS ---
Subjective Subjective The patient remains in the ICU mechanically intubated, ventilated, and sedated. She has demonstrated myoclonic jerking type movements. Objective Data Vital Signs: Vital Signs Temp Pulse Resp BP Pulse Ox O2 Del Method FiO2 96.4 F L 71 12 98/73 93 Mechanical Ventilator 25 09/28/22 06:00 09/28/22 07:00 09/28/22 06:20 09/28/22 06:00 09/28/22 06:20 09/28/22 06:00 09/28/22 06:20 Oxygen Delivery Method Mechanical Ventilator Weight: 136 lb Body Mass Index (BMI) 24.6 Intake & Output: Intake and Output for Last 24 Hours 09/26/22 09/27/22 09/28/22 23:59 23:59 23:59 Intake Total 1121.64 / 1128.84 2267.08 / 2269.58 407.63 / 407.63 Output Total 200 / 200 2200 / 2240 455 / 455 Balance 921.64 / 928.84 67.08 / 29.58 -47.37 / -47.37 Lab / Micro Data Result Diagrams: 09/28/22 03:24 09/28/22 03:24 Labs: Laboratory Results - last 24 hr 09/27/22 11:40: APTT 137.3 H* 09/27/22 20:16: APTT 39.5 H 09/28/22 03:24: WBC 11.0, RBC 4.44, Hgb 13.9, Hct 39.4, MCV 88.7, MCH 31.3, MCHC 35.3, RDW Std Deviation 45.1 H, RDW Coeff of Toby 14.4, Plt Count 215, MPV 10.7, Immature Gran % (Auto) 0.500, Neut % (Auto) 84.8 H, Lymph % (Auto) 7.3 L, Bollinger % (Auto) 7.3, Eos % (Auto) 0.0, Baso % (Auto) 0.1, Absolute Neuts (auto) 9.3 H, Absolute Lymphs (auto) 0.81 L, Nucleated RBC % 0 09/28/22 03:24: Sodium 128 L, Potassium 3.9, Chloride 91 L, Carbon Dioxide 26.0, Anion Gap 11, BUN 37 H, Creatinine 1.18 H, Estim Creat Clear Calc 34.59, Est GFR (MDRD) Af Amer 58 L, Est GFR (MDRD) Non-Af 48 L, BUN/Creatinine Ratio 31.4 H, Glucose 117 H, Calcium 7.8 L, Total Bilirubin 1.10 H, AST 82 H, ALT 89 H, Alkaline Phosphatase 93, Total Protein 4.9 L, Albumin 2.3 L, Globulin 2.6, Albumin/Globulin Ratio 0.9 09/28/22 03:24: APTT 97.8 H* Micro: Microbiology 09/26/22 19:10 Urine Catheter - Barraza Urine Culture - Final Culture exhibits no growth. 09/26/22 17:30 Sputum, Induced/Lukens Gram Stain - Final 09/26/22 17:30 Sputum, Induced/Lukens Respiratory Culture - Preliminary Appears to be normal respiratory jessica. Further studies to follow. Rhythm Strip Rhythm Strip: Paced Rate: 67 Cardiology Labs/Tests 09/27/22 11:40: APTT 137.3 H* 09/27/22 20:16: APTT 39.5 H 09/28/22 03:24: WBC 11.0, RBC 4.44, Hgb 13.9, Hct 39.4, MCV 88.7, MCH 31.3, MCHC 35.3, Plt Count 215, MPV 10.7, Immature Gran % (Auto) 0.500, Neut % (Auto) 84.8 H, Lymph % (Auto) 7.3 L, Bollinger % (Auto) 7.3, Eos % (Auto) 0.0, Baso % (Auto) 0.1, Absolute Neuts (auto) 9.3 H, Nucleated RBC % 0 09/28/22 03:24: Sodium 128 L, Potassium 3.9, Chloride 91 L, Carbon Dioxide 26.0, Anion Gap 11, BUN 37 H, Creatinine 1.18 H, Est GFR (MDRD) Af Amer 58 L, Est GFR (MDRD) Non-Af 48 L, BUN/Creatinine Ratio 31.4 H, Glucose 117 H, Calcium 7.8 L, Total Bilirubin 1.10 H 09/28/22 03:24: APTT 97.8 H* Rhythm: Electronic ventricular paced rhythm; occasional PVC Radiography Diagnostic Testing: Radiology Impression Ankle Brachial Index 09/26/22 18:24 Interpretation Summary Right JESSICA 1.06, normal. Doppler/PVR waveforms of the right ankle normal at rest. Digit waveforms diminished, pedal/digit disease vs spasm. Left JESSICA 0.93, mild arterial insufficiency. Doppler/PVR waveforms of the left ankle mildly diminished at rest. Ordering Physician: Jeimy Devi Referring Physician: JEIMY DEVI MD Performed By: Josseline Varela RDCS/RVT Echocardiogram 09/26/22 22:16 Interpretation Summary Severely dilated left ventricle. Severe segmental systolic dysfunction (see wall motion). The estimated ejection fraction is 10 %. The left atrium is moderately enlarged. The right atrium is mildly enlarged. There is mild mitral annular calcification. Mild diffuse mitral valve thickening. Moderately severe (3+) eccentric mitral valve insufficiency. Moderate (2+) tricuspid valve insufficiency. Mild focal aortic valve calcification. Trivial eccentric pulmonic valve insufficiency. Echo lucency compatible with a pleural effusion. Right ventricular systolic pressure estimated to be 44 mmHg. Stage 2 diastolic dysfunction. ICD or pacer leads identified within the right atrium ICD or pacer leads identified within the right ventricle. Comment: Based upon the 2D echocardiographic images obtained: No obvious intracardiac mass lesion/thrombus identified. Ordering Physician: Jeimy Devi Referring Physician: DEVENDRA PCP Performed By: Christy Guerra RCS Physical Exam HEENT normocephalic and head/scalp atraumatic Neck no JVD Resp Auscultation: rhonchi throughout (Scattered upper airway sounds) Cardio regular rate, regular rhythm, S1 normal heart sound and S2 normal heart sound Heart Sounds: murmur systolic III/ high-pitched mid left sternal border, apex and axilla GI normal to inspection, nondistended, normoactive bowel sounds Extremity General Extremity: edema bilateral lower extremity Details: moderate (Somewhat keagan/ischemic appearing) Skin Skin Narrative: As noted above Neuro Neuro Narrative: Myoclonic jerking type movement Assessment & Plan Assessment/Plan (1) Cardiac arrest: PLAN: The patient experienced a cardiac arrest. At the present time, based upon interrogation of her ICD, it appears the etiology may be a primary cardiac dysrhythmia with ventricular fibrillation. It appears the patient did receive 3 ICD defibrillations. The patient has subsequently been mechanically intubated and ventilated and sedated in the ICU. She has undergone additional cardiovascular evaluation with a transthoracic echocardiogram with the results as noted. At the present time from a cardiovascular standpoint she appears to have remained hemodynamically stable. She appears to remain in an underlying electronic ventricular paced rhythm with an occasional PVC. Of concern is her underlying neurologic status. Based upon conversations with the ICU staff there are concerns that she demonstrates evidence compatible with a hypoxic/anoxic encephalopathy. Based upon those concerns there does not appear to be any immediate plans for additional cardiovascular diagnostic studies or intervention at this time. Thus, it appears the ICU staff will be discussing with the patient's family today how to proceed with additional evaluation and/or care. (2) Coronary artery disease: PLAN: The patient has a history of underlying CAD. She has been extensively evaluated for this noninvasively and invasively locally and at [facility]. She has been declined for any form of revascularization therapy. She is continue conservative medical management. (3) Cardiomyopathy, ischemic: PLAN: The patient has a history of an underlying ischemic mediated cardiomyop athy. She has been evaluated extensively for this as noted above. She has been declined by [facility] for any type of LVAD support. She is continue conservative medical management as tolerated. She does have a biventricular ICD in place. (4) CHF (congestive heart failure), NYHA class IV: PLAN: The patient has a history of chronic systolic CHF. She has had episodes of acute on chronic systolic CHF. She does not appear to demonstrate acute CHF at this time. She is continued medical management. (5) ICD (implantable cardioverter-defibrillator) in place: PLAN: The patient does have an ICD in place. Her ICD interrogation is as noted. Again, it appears she had ventricular fibrillation which resulted in 3 ICD defibrillations. She appears to remain in an underlying electronic ventricular paced rhythm at this time with an occasional PVC. (6) Mitral valve disease: PLAN: The patient has a history of mitral valve disease. Her transthoracic echocardiogram findings are as noted. She is continuing conservative therapy at this time. (7) Essential hypertension: PLAN: The patient has had a history of hypertension. Her vital signs have not demonstrated the need for additional blood pressure lowering medication at this time nor has she demonstrated the need for additional blood pressure enhancing medicine such as IV vasopressors at this time. She will be followed with her blood pressure and additional evaluation care as deemed appropriate. Addt'l Comments Overall, from a cardiovascular standpoint, the patient's prognosis appears to be poor at this time. The ICU staff will be discussing the patient's clinical condition with her family with respect to how to proceed with additional evaluation and care. The patient's case was discussed and reviewed with Dr. Hodgson of the pulmonology/critical care staff. This note was generated using a voice recognition system and there may be incorrect words, spelling or punctuation that were not noted when reviewing the office note prior to saving. Procedure Criteria Type of Procedure Procedure Type: Elective Elective Risks - COVID COVID Risk Discussion: The surgeon/proceduralist and patient have discussed in detail the risk of exposure to and/or potential harm posed by the COVID-19 virus with having a surgery/procedure at this time versus the risk of delaying the surgery/procedure. It is not possible to know either the risk of delaying the surgery or procedure or chance of getting an infection with perfect accuracy, but a joint decision was made between the patient and the surgeon/proceduralist to proceed at this time with the scheduled surgery/procedure as indicated on the consent form.
[2022-09-28] MEDS: Propofol 10MG/Ml 1,000 MG/100 ML Bottle 5.5 MG CONT INF (07:51)
[2022-09-28] MEDS: Aspirin 81 MG TAB.CHEW GT (07:57)
--- NOTE | 2022-09-28 10:03 | CASEMGMT ---
Physician spoke with patient's son and daughter in law to discuss when they would like to meet as a family. It was decided the meeting would be at noon. Ashley CARTER
[2022-09-28] MEDS: Furosemide 40 MG/4 ML Vial IV (10:12)
[2022-09-28] MEDS: Chlorhexidine 15 ML PO (10:19)
--- NOTE | 2022-09-28 11:37 | PCM.PN.HOSP ---
Subjective Subjective Patient with no meaningful interaction. Continues to have myoclonic jerking and remains on propofol to control this. No seizure activity noted on EEG. Goals of care meeting with family later today. Objective Data Objective Data Vital Signs: Vital Signs Temp Pulse Resp BP Pulse Ox O2 Del Method FiO2 97.6 F L 82 13 108/79 99 Mechanical Ventilator 25 09/28/22 10:00 09/28/22 10:00 09/28/22 10:00 09/28/22 10:00 09/28/22 10:00 09/28/22 10:00 09/28/22 10:00 Oxygen Delivery Method Mechanical Ventilator Weight: 61.689 kg Body Mass Index (BMI) 24.6 Intake & Output: Intake and Output for Last 24 Hours 09/26/22 09/27/22 09/28/22 23:59 23:59 23:59 Intake Total 1121.64 / 1128.84 2267.08 / 2269.58 608.68 / 608.68 Output Total 200 / 200 2200 / 2240 730 / 730 Balance 921.64 / 928.84 67.08 / 29.58 -121.32 / -121.32 Lab / Micro Data Result Diagrams: 09/28/22 03:24 09/28/22 03:24 Labs: Laboratory Results - last 24 hr 09/27/22 11:40: APTT 137.3 H* 09/27/22 20:16: APTT 39.5 H 09/28/22 03:24: WBC 11.0, RBC 4.44, Hgb 13.9, Hct 39.4, MCV 88.7, MCH 31.3, MCHC 35.3, RDW Std Deviation 45.1 H, RDW Coeff of Toby 14.4, Plt Count 215, MPV 10.7, Immature Gran % (Auto) 0.500, Neut % (Auto) 84.8 H, Lymph % (Auto) 7.3 L, [place] % (Auto) 7.3, Eos % (Auto) 0.0, Baso % (Auto) 0.1, Absolute Neuts (auto) 9.3 H, Absolute Lymphs (auto) 0.81 L, Nucleated RBC % 0 09/28/22 03:24: Sodium 128 L, Potassium 3.9, Chloride 91 L, Carbon Dioxide 26.0, Anion Gap 11, BUN 37 H, Creatinine 1.18 H, Estim Creat Clear Calc 34.59, Est GFR (MDRD) Af Amer 58 L, Est GFR (MDRD) Non-Af 48 L, BUN/Creatinine Ratio 31.4 H, Glucose 117 H, Calcium 7.8 L, Total Bilirubin 1.10 H, AST 82 H, ALT 89 H, Alkaline Phosphatase 93, Total Protein 4.9 L, Albumin 2.3 L, Globulin 2.6, Albumin/Globulin Ratio 0.9 09/28/22 03:24: APTT 97.8 H* Micro: Microbiology 09/26/22 17:30 Sputum, Induced/Lukens Gram Stain - Final 09/26/22 17:30 Sputum, Induced/Lukens Respiratory Culture - Preliminary Appears to be normal respiratory jessica. Further studies to follow. 09/26/22 19:10 Urine Catheter - Barraza Urine Culture - Final Culture exhibits no growth. 09/26/22 19:10 Urine Catheter - Catheter Legionella Antigen - Final 09/26/22 19:10 Urine Catheter - Catheter Streptococcus pneumoniae Antigen (M - Final Radiography Diagnostic Testing: Radiology Impression Ankle Brachial Index 09/26/22 18:24 Interpretation Summary Right JESSICA 1.06, normal. Doppler/PVR waveforms of the right ankle normal at rest. Digit waveforms diminished, pedal/digit disease vs spasm. Left JESSICA 0.93, mild arterial insufficiency. Doppler/PVR waveforms of the left ankle mildly diminished at rest. Ordering Physician: Jeimy Devi Referring Physician: JEIMY DEVI MD Performed By: Josseline Varela RDCS/RVT Echocardiogram 09/26/22 22:16 Interpretation Summary Severely dilated left ventricle. Severe segmental systolic dysfunction (see wall motion). The estimated ejection fraction is 10 %. The left atrium is moderately enlarged. The right atrium is mildly enlarged. There is mild mitral annular calcification. Mild diffuse mitral valve thickening. Moderately severe (3+) eccentric mitral valve insufficiency. Moderate (2+) tricuspid valve insufficiency. Mild focal aortic valve calcification. Trivial eccentric pulmonic valve insufficiency. Echo lucency compatible with a pleural effusion. Right ventricular systolic pressure estimated to be 44 mmHg. Stage 2 diastolic dysfunction. ICD or pacer leads identified within the right atrium ICD or pacer leads identified within the right ventricle. Comment: Based upon the 2D echocardiographic images obtained: No obvious intracardiac mass lesion/thrombus identified. Ordering Physician: Jeimy Devi Referring Physician: DEVENDRA PCP Performed By: Christy Guerra RCS Rhythm Strip Rhythm Strip: Paced Rate: 67 Physical Exam Const Constitutional Narrative: Patient intubated and sedated, no meaningful interaction. Nursing reports continued myoclonic jerking off propofol that is quite severe HEENT head/scalp atraumatic and moist oral mucous membranes HEENT Narrative: ET tube and OG in place Eyes conjunctivae normal Eyes Narrative: Pupils are approximately 2 to 3 mm with sluggish reaction, intermittent cough with suction, no scleral icterus Resp no retractions, no use of accessory muscles and clear to auscultation bilaterally Resp Narrative: Lungs are clear, patient mechanically ventilated Auscultation: Negative for crackles, rhonchi or wheezes Cardio regular rate, regular rhythm, S1 normal heart sound, S2 normal heart sound, no rub, no gallops and no clicks; Negative for no murmurs Cardio Narrative: 3 out of 6 systolic murmur at left upper sternal border GI normal to inspection, nondistended, normoactive bowel sounds, soft to palpation and non-tender Extremity Extremity Narrative: Edema noted distally in upper and lower extremities with pitting in nature, no cyanosis or clubbing Neuro Neuro Narrative: Difficult exam, patient intubated and sedated, per nursing significant myoclonic jerking off of propofol, no meaningful interaction Assessment & Plan Assessment/Plan (1) Anoxic brain injury: (2) Cardiac arrest: (3) Ventricular fibrillation: (4) Extremity ischemia: (5) Acute kidney injury: (6) Hyponatremia: (7) Cardiomyopathy, ischemic: (8) Myoclonus: PLAN: Plan Cardiac arrest secondary to fine V. fib -Current EF is 10% -Interrogation of pacemaker shows V. fib is likely etiology -It does appear that patient had extended period of time with decreased perfusion for up to 20 minutes based on review of defibrillator and pacemaker prior to ROSC -Cardiology following and overall prognosis is poor EBONY -Resolving -Baseline serum creatinine appears to be around 0.9 -Serum creatinine is down today to 1.13 despite ongoing diuresis -Continue Lasix Suspected anoxic brain injury -Patient does have intermittent cranial nerve reflexes but remains fairly obtunded without spontaneous movement -EEG does not show status or signs of epileptiform activity -Family meeting later today for goals of care discussion Aspiration pneumonia -Sputum culture shows normal respiratory jessica -Likely obtained during downtime -Urine cultures unremarkable -Blood cultures are pending -Discontinue azithromycin and continue ceftriaxone CAD/ischemic cardiomyopathy/CHF NYHA class IV/mitral valve disease -Patient underwent extensive evaluation in February 2021 both here and at [facility] and was deemed not a candidate for multivessel PCI, CABG, or LVAD therapy -Patient has ICD at baseline -Continue Lasix 40 mg IV push twice daily as tolerates -Continue aspirin -Cardiac meds are not hold at this time given clinical status -Cardiology following History of tobacco abuse -No specific diagnosis of COPD Hypertension -All medications on hold due to the above Depression/anxiety -Hold home medications due to the above DVT/GI prophylaxis -Patient remains on heparin drip -Continue Protonix twice daily CODE STATUS -Full code Charges/Coding Visit Charges Inpatient E&M: 84115 Subs Hosp L2
--- NOTE | 2022-09-28 12:49 | NURSING ---
notified by son, [id number], and two brothers their wishes are to change code status to DNRCC and extubate and turn everything off Dr. Hodgson aware, [facility] called.
--- NOTE | 2022-09-28 12:55 | NURSING ---
spoke with Milo, with [facility], stated since patient is 71 not a candidate for DCD, can move forward with withdrawing care and extubation, call after cardiac for potential tissue and eye donation.
[2022-09-28] MEDS: LORazepam 2 MG/ML Syringe IV (14:19)
--- NOTE | 2022-09-28 14:22 | NURSING ---
extubated at 1420 to room air, OG D/C at this time.
--- NOTE | 2022-09-28 14:37 | CPS ---
pt extubated to comfort care on room air
--- NOTE | 2022-09-28 15:26 | EXP.PCM_ITS ---
Preliminary Cause of Preliminary Cause of Preliminary Cause of : Ischemic cardiomyopathy Date of Admission: 09/26/22 Date of : 09/28/22 Principle Diagnosis Cardiopulmonary arrest secondary to fine ventricular fibrillation Problem List: Active and Suspected Problems (Updated 09/28/22 @ 11:[address] Muna Woods, DO) Myoclonus (Acute) Ventricular fibrillation (Acute) Extremity ischemia (Acute) Anoxic brain injury (Acute) Mitral valve disease (Acute) Urinary tract infection (Acute) Cardiac arrest (Acute) Respiratory arrest (Acute) Acute kidney injury (Acute) Hyponatremia (Acute) Coronary artery disease (Acute) Essential hypertension (Acute) CHF (congestive heart failure), NYHA class IV (Acute) Cardiomyopathy, ischemic (Acute) ICD (implantable cardioverter-defibrillator) in place (Acute) Hospital Course Mrs. Andres is a 71-year-old white female who presented to the emergency department [facility] on 09/26/2022 with cardiac arrest. Patient had a known history of coronary artery disease with ischemic cardiomyopathy and had a baseline ejection fraction of 10 to 15%. She had previous ICD and pacemaker placement and was evaluated at [facility] for further intervention however was deemed not a candidate for multivessel PCI, bypass surgery, or LVAD therapy. She evidently had been cleaning the steps on the day of presentation and suffered a cardiac arrest. Her friend started CPR at that time and EMS was called. She received 2 rounds of epinephrine and regained spontaneous circulation and an airway was placed in the emergency department. Her device was interrogated and it did appear that she had protracted decreased perfusion for up to 20 minutes prior to ROSC. Her echocardiogram done at this hospitalization showed a stable EF at 10%. She was admitted to the intensive care unit where cardiology and critical care/pulmonary medicine were consulted. On presentation she had some mild EBONY which was resolving. She unfortunately developed myoclonus and an EEG was done with no evidence of status epilepticus. It was felt that the myoclonus was likely due to anoxia. Cardiology had nothing to add at this point and felt that her overall prognosis was very poor given her poor EF at baseline. There was some concern for possible limb ischemia and vascular surgery was consulted on 09/27/2022. It was felt that the presentation of cool lower extremities was likely related to global hypoperfusion resultant from her poor baseline cardiac function and her acute cardiac event. Dopplers were found and no surgical intervention was recommended at that time. Given her clinical exam and overall prognosis further conversation was had with the family on the afternoon of 09/28/2022 with the patient's son, [id number], and 2 brothers about goals of care. Family felt that the patient's overall quality of life was extremely poor for several years and felt based on previous discussions with his mother that she would not want any further extensive intervention and the family wished to proceed with terminal extubation. Patient was terminally extubated on 09/28/2022 and time of was 1430. Discharge diagnoses: Cardiac arrest secondary to fine V. fib EBONY Suspected anoxic brain injury Aspiration pneumonia CAD Ischemic cardiomyopathy CHF NYHA class IV Mitral valve disease History of tobacco abuse Hypertension Depression Anxiety Visit Charges Inpatient E&M: 41367 Disch Hosp
--- NOTE | 2022-09-28 15:34 | NURSING ---
TOD 1430, brother, Osmel and son, Ralf notified. [facility] notified, pending tissue and eye donation. Family took ring and clothes home, glasses sent with patient to [facility].
== END 2022-09-28 15:30 | DRG 308 ==
LOC: ED 17:59 → ICU 20:19
PROVIDERS: Hospitalist; Internal Medicine; Internal Medicine Critical Care Medicine; Admitting Provider Internal Medicine; Emergency Provider Emergency Medicine; Visit Provider Internal Medicine
DX: I49.01 Ventricular fibrillation (principal); J69.0 Pneumonitis due to inhalation of food and vomit; G93.1 Anoxic brain damage, not elsewhere classified; I50.22 Chronic systolic (congestive) heart failure; N17.9 Acute kidney failure, unspecified; E87.1 Hypo-osmolality and hyponatremia; E87.20 Acidosis, unspecified; N39.0 Urinary tract infection, site not specified; I46.2 Cardiac arrest due to underlying cardiac condition; I11.0 Hypertensive heart disease with heart failure; I70.223 Atherosclerosis of native arteries of extremities with rest pain, bilateral legs; G25.3 Myoclonus; I25.10 Atherosclerotic heart disease of native coronary artery without angina pectoris; I44.7 Left bundle-branch block, unspecified; I25.5 Ischemic cardiomyopathy; E87.5 Hyperkalemia; F41.9 Anxiety disorder, unspecified; F32.A Depression, unspecified; I34.89 Other nonrheumatic mitral valve disorders; Z86.16 Personal history of COVID-19; Z87.891 Personal history of nicotine dependence; Z95.810 Presence of automatic (implantable) cardiac defibrillator; Z79.82 Long term (current) use of aspirin
CPT/HCPCS: 31500; 31720; 36415; 36600; 51702; 70450; 71045; 71275; 80048; 80053; 81001; 82550; 82803; 83605; 83880; 84478; 84484; 85025; 85379; 85610; 85730; 87040; 87070; 87086; 87205; 87449; 93005; 93306; 93922; 94002; 94003; 95819; 99251; 99285; J7030; Q9957; Q9967; A4216; G0463; J1940; J3010